=== PATIENT | male | born 1955 | race Caucasian/White ===

== ENCOUNTER → 2019-04-20 14:19 | Outpatient (CLI) | payer MEDICARE, SELFPAY ==
--- NOTE | 2019-04-20 | DI.CT.S_ITS ---
PROCEDURE: CT SINUS SCREEN WO CON INDICATIONS: Other chronic sinusitis TECHNIQUE: Noncontrast 3.0 mm axial images acquired from the frontal sinuses to the mid-sella, with coronal and sagittal reformats. For radiation dose reduction, the following was used: automated exposure control, adjustment of mA and/or kV according to patient size. COMPARISON: None. FINDINGS: Image quality: Excellent. Maxillary Sinuses: No bony remodeling or destruction. Sinuses are clear. Ethmoid Air Cells: No bony remodeling or destruction. There is mild mucosal thickening seen within the ethmoid air cells. Sphenoid Sinuses: No bony remodeling or destruction. Moderate mucosal thickening is seen within the right sphenoid sinus. Frontal Sinuses: No bony remodeling or destruction. Sinuses are clear. Ostiomeatal Complexes: Ostiomeatal complexes are patent. No Marcio cells. Miscellaneous: Visualized intra-orbital contents are normal. There is a small right-sided joel bullosa. No significant nasal septal deviation is seen. IMPRESSION: Focal right sphenoid sinus disease. Dictated by: Tim Daniels M.D. on 04/20/2019 at 14:50 Approved by: Tim Daniels M.D. on 04/20/2019 at 14:51
== END ==
PROVIDERS: PCP Internal Medicine; Referring Provider Otolaryngology; Visit Provider Otolaryngology
DX: J32.8 Other chronic sinusitis (principal)
CPT/HCPCS: 70486

== ENCOUNTER → 2019-05-31 15:29 | Outpatient (CLI) | payer MEDICARE, SELFPAY ==
[2019-05-31 16:10] LABS: Add Manual Diff / Slide Review NO; Basophils Absolute Auto 0 /uL (0-100); Basophils Percent Auto 0.5 % (0-2); Eosinophils Absolute Auto 0 /uL (0-450); Eosinophils Percent Auto 0.2 % (2-4); Hematocrit 42.7 % (41-53); Hemoglobin 14.3 g/dL (13.5-17.5); Lymphocytes Absolute Auto 1200 /uL (1100-4500); Mean Corpuscular HGB Conc 33.4 % (30-36); Mean Corpuscular Hemoglobin 31.2 PG (26-34); Mean Corpuscular Volume 93.4 fL (80-100); Monocytes Absolute Auto 500 /uL (0-900); Monocytes Percent Auto 6.2 % (3-14); Neutrophils Absolute Auto 5900 /uL (1500-7000); Neutrophils Percent Auto 77.1 % (50-75); Platelet Count 172 X10^3/uL (150-400); Red Blood Cell Count 4.57 X10^6/uL (4.5-5.9); Red Cell Distribution Width 13.5 % (11.6-14.8); White Blood Cell Count 7.6 X10^3/uL (4.5-11.0)
[2019-05-31 16:46] LABS: Blood Urea Nitrogen 27 mg/dL (9-20); Calcium 10.1 mg/dL (8.4-10.2); Carbon Dioxide 32 mmol/L (22-32); Chloride 105 mmol/L (98-107); Cholesterol 165 mg/dL (140-199); Estimated Glomerular Filt Rate > 60.0 mL/min (>60); Glucose 105 mg/dL (80-110); HDL Cholesterol 48 mg/dL (40-60); HEMOLYSIS < 15 (0-50); LDL Cholesterol Calculated 97 mg/dL (<100); Magnesium 2.4 mg/dL (1.6-2.3); Potassium 4.5 mmol/L (3.4-5.1); Sodium 142 mmol/L (137-145); Triglycerides 102 mg/dL (35-150)
[2019-05-31 17:16] LABS: TSH w/ Reflex to FT4 1.94 uIU/mL (0.47-4.68)
== END ==
PROVIDERS: PCP Internal Medicine; Referring Provider Internal Medicine; Visit Provider Internal Medicine Cardiovascular Disease
DX: I48.19 Other persistent atrial fibrillation (principal); I10 Essential (primary) hypertension; R53.83 Other fatigue
CPT/HCPCS: 36415; 80048; 80061; 83735; 84443; 85025

== ENCOUNTER → 2019-05-31 15:33 | Outpatient (CLI) | payer MEDICARE, SELFPAY ==
--- NOTE | 2019-05-31 | DI.RAD.S_ITS ---
PROCEDURE: XR LUMBAR SPINE 6V W BENDING INDICATIONS: LUMBAR SPONDYLOSIS TECHNIQUE: 6 views of the number spine were acquired, including flexion and extension views and bilateral oblique views. COMPARISON: None. FINDINGS: Bones: 5 nonrib-bearing, lumbar type vertebral bodies are seen. No displaced fractures are seen. No suspicious lytic or blastic lesions are seen. Mild to moderate dextroconvex cervical lumbar scoliotic curvature is seen. Moderate to severe disc space narrowing is seen at L3-L4, L4-L5, and L5-S1. Prominent bridging anterior osteophytes are seen throughout the lumbar spine, which are most prominent at L3-L4. Prominent right and left bridging endplate osteophytes are seen at L3-L4. Vacuum disc phenomenon is seen at least at the L3-L4 level. Facet arthropathy is seen, which is most prominent inferiorly. The oblique views are limited. No saleem pars defects are detected on these images. There is partial visualization of left hip arthroplasty hardware. Soft tissues: Overlying bowel gas pattern is normal. No suspicious soft tissue calcifications. A postoperative clip can be seen within the right midabdomen. Flexion/extension: There is highly limited range of motion, with preserved normal alignment. IMPRESSION: Prominent degenerative changes are seen, which are worst at L3-L4 level. Limited range of motion, without abnormal subluxation. Dictated by: Tim Daniels M.D. on 05/31/2019 at 15:30 Approved by: Tim Daniels M.D. on 05/31/2019 at 15:33
== END ==
PROVIDERS: PCP Internal Medicine; Referring Provider Internal Medicine; Visit Provider Pain Medicine Pain Medicine
DX: M47.816 Spondylosis without myelopathy or radiculopathy, lumbar region (principal)
CPT/HCPCS: 72114

== ENCOUNTER → 2019-08-31 13:42 | Outpatient (CLI) | payer OTHER, SELFPAY ==
[2019-09-01 09:34] LABS: COVID19 Sendout NOT DETECTED (Not Detect)
== END ==
PROVIDERS: PCP Internal Medicine; Visit Provider Physician Assistant
DX: Z01.812 Encounter for preprocedural laboratory examination (principal)
CPT/HCPCS: 87635

== ENCOUNTER → 2019-09-03 08:42 | Outpatient (CLI) | payer MEDICARE, SELFPAY | PROVIDERS: PCP Internal Medicine; Referring Provider Internal Medicine Cardiovascular Disease; Visit Provider Internal Medicine Cardiovascular Disease | DX: Z01.818 Encounter for other preprocedural examination (principal); Z53.9 Procedure and treatment not carried out, unspecified reason ==

== ENCOUNTER → 2019-10-26 14:28 | Outpatient (CLI) | payer MEDICARE, SELFPAY ==
[2019-10-26 15:02] LABS: Bacteria Urine None Seen; RBC Urine None Seen (0-5/HPF); WBC Urine None Seen (0-5/HPF)
[2019-10-26 16:12] LABS: Add Manual Diff / Slide Review NO; Basophils Absolute Auto 0 /uL (0-100); Basophils Percent Auto 0.5 % (0-2); Eosinophils Absolute Auto 100 /uL (0-450); Eosinophils Percent Auto 2.1 % (2-4); Hematocrit 40.6 % (41-53); Lymphocytes Absolute Auto 1500 /uL (1100-4500); Lymphocytes Percent Auto 25.2 % (25-40); Mean Corpuscular HGB Conc 34.5 % (30-36); Mean Corpuscular Hemoglobin 31.8 PG (26-34); Mean Corpuscular Volume 92.1 fL (80-100); Monocytes Absolute Auto 400 /uL (0-900); Monocytes Percent Auto 6.6 % (3-14); Neutrophils Absolute Auto 3800 /uL (1500-7000); Neutrophils Percent Auto 65.6 % (50-75); Platelet Count 142 X10^3/uL (150-400); Red Blood Cell Count 4.41 X10^6/uL (4.5-5.9); Red Cell Distribution Width 13.3 % (11.6-14.8); White Blood Cell Count 5.8 X10^3/uL (4.5-11.0)
[2019-10-26 16:36] LABS: Alanine Aminotransferase 19 IU/L (<50); Albumin 4.6 g/dL (3.5-5.0); Albumin Globulin Ratio 1.7 (1.0-2.8); Alkaline Phosphatase 90 U/L (38-126); Aspartate Aminotransferase 31 IU/L (17-59); BUN Creatinine Ratio 14.9 (6-22); Bilirubin Total 1.1 mg/dL (0.2-1.3); Blood Urea Nitrogen 20 mg/dL (9-20); Calcium 9.7 mg/dL (8.4-10.2); Carbon Dioxide 29 mmol/L (22-32); Chloride 100 mmol/L (98-107); Cholesterol 160 mg/dL (140-199); Estimated Glomerular Filt Rate 53.7 mL/min (>60); Globulin 2.7 g/dL (1.7-4.1); Glucose 85 mg/dL (80-110); HDL Cholesterol 49 mg/dL (40-60); HEMOLYSIS < 15 (0-50); LDL Cholesterol Calculated 94 mg/dL (<100); Potassium 4.4 mmol/L (3.4-5.1); Sodium 137 mmol/L (137-145); Total Protein 7.3 g/dL (6.3-8.2); Triglycerides 87 mg/dL (35-150)
[2019-10-26 16:45] LABS: Appearance Urine UA CLEAR; Bilirubin Urine UA NEGATIVE (NEGATIVE); Color Urine UA YELLOW; Glucose Urine UA NEGATIVE (Negative); Ketones Urine UA NEGATIVE (NEGATIVE); Leukocyte Esterase Urine UA NEGATIVE (NEGATIVE); Nitrite Urine UA NEGATIVE (Negative); Occult Blood Urine UA NEGATIVE (Negative); Protein Urine UA NEGATIVE (Negative); Specific Gravity Urine UA 1.015 (1.000-1.035); Urobilinogen Urine UA 0.2 E.U./dL (0.2)
[2019-10-26 17:06] LABS: Culture Indicated Urine Cult Not Indicated; Urine Comments Microscopic Normal
[2019-10-26 17:07] LABS: Prostate Specific Antigen 0.384 ng/mL (0.10-4.00)
[2019-10-26 17:08] LABS: TSH w/ Reflex to FT4 2.16 uIU/mL (0.47-4.68)
== END ==
PROVIDERS: PCP Internal Medicine; Referring Provider Internal Medicine; Visit Provider Internal Medicine
DX: R39.14 Feeling of incomplete bladder emptying (principal); N40.1 Benign prostatic hyperplasia with lower urinary tract symptoms; Z13.220 Encounter for screening for lipoid disorders; I48.91 Unspecified atrial fibrillation
CPT/HCPCS: 36415; 80053; 80061; 81001; 84153; 84443; 85025

== ENCOUNTER → 2019-12-07 15:36 | Outpatient (CLI) | payer MEDICARE, SELFPAY ==
--- NOTE | 2019-12-07 15:42 | DI.US.S_ITS ---
PROCEDURE: US PERIPH VENOUS LOW EXTREM RT INDICATIONS: PAIN RIGHT THIGH TECHNIQUE: Real-time imaging, as well as color and pulse Doppler interrogation, were performed of the lower extremity deep veins from the inguinal ligament to the popliteal fossa. COMPARISON: None. FINDINGS: The common femoral, femoral and popliteal veins are normally compressible, and free of intraluminal thrombus. Color and pulse Doppler demonstrate normal phasic intraluminal flow. There is normal augmentation response to distal compression maneuver. IMPRESSION: No deep venous thrombosis identified within the right lower extremity. Dictated by: Tj Tanner [facility] Interpreted: Simone Keen MD on 12/07/2019 at 16:22 Approved by: Simone Keen M.D. on 12/07/2019 at 16:35
--- NOTE | 2019-12-07 15:43 | DI.RAD.S_ITS ---
PROCEDURE: XR RIBS RT MIN 3V W CXR 1V INDICATIONS: RIB PAIN DYSPNEA TECHNIQUE: 2 views of the right ribs were acquired, along with a single view chest. COMPARISON: None. FINDINGS: Surgical changes and devices: Dual lead cardiac pacer. Cholecystectomy clips. Bones and chest wall: No fractures or dislocations. No suspicious bony lesions. Overlying soft tissues appear unremarkable. Lungs and pleura: No pleural effusions or pneumothorax. Lungs appear clear. Mediastinum: Mediastinal contours appear normal. Heart size is normal. IMPRESSION: No displaced rib fracture. Macro chest Dictated by: Jodie Peterson MD, PhD on 12/07/2019 at 16:38 Approved by: Jodie Peterson MD, PhD on 12/07/2019 at 16:39
== END ==
PROVIDERS: PCP Internal Medicine; Referring Provider Internal Medicine; Visit Provider Internal Medicine
DX: M79.651 Pain in right thigh (principal); R07.81 Pleurodynia; R06.00 Dyspnea, unspecified; Z95.0 Presence of cardiac pacemaker
CPT/HCPCS: 71101; 93971

== ENCOUNTER → 2019-12-27 12:32 | Outpatient (CLI) | payer MEDICARE, SELFPAY ==
[2019-12-27 13:13] LABS: Bacteria Urine None Seen; RBC Urine None Seen (0-5/HPF)
[2019-12-27 13:21] LABS: Add Manual Diff / Slide Review NO; Basophils Absolute Auto 100 /uL (0-100); Basophils Percent Auto 1.6 % (0-2); Eosinophils Absolute Auto 200 /uL (0-450); Eosinophils Percent Auto 3.5 % (2-4); Hematocrit 38.9 % (41-53); Hemoglobin 13.1 g/dL (13.5-17.5); Lymphocytes Absolute Auto 1500 /uL (1100-4500); Lymphocytes Percent Auto 25.2 % (25-40); Mean Corpuscular HGB Conc 33.7 % (30-36); Mean Corpuscular Hemoglobin 31.1 PG (26-34); Mean Corpuscular Volume 92.1 fL (80-100); Monocytes Absolute Auto 500 /uL (0-900); Monocytes Percent Auto 8.1 % (3-14); Neutrophils Absolute Auto 3800 /uL (1500-7000); Neutrophils Percent Auto 61.6 % (50-75); Platelet Count 174 X10^3/uL (150-400); Red Blood Cell Count 4.22 X10^6/uL (4.5-5.9); Red Cell Distribution Width 13.2 % (11.6-14.8); White Blood Cell Count 6.1 X10^3/uL (4.5-11.0)
[2019-12-27 13:36] LABS: Appearance Urine UA CLEAR; Bilirubin Urine UA NEGATIVE (NEGATIVE); Color Urine UA YELLOW; Glucose Urine UA NEGATIVE (Negative); Ketones Urine UA NEGATIVE (NEGATIVE); Leukocyte Esterase Urine UA NEGATIVE (NEGATIVE); Nitrite Urine UA NEGATIVE (Negative); Occult Blood Urine UA NEGATIVE (Negative); Protein Urine UA NEGATIVE (Negative); Urobilinogen Urine UA 0.2 E.U./dL (0.2)
[2019-12-27 13:39] LABS: Alanine Aminotransferase 17 IU/L (<50); Albumin 4.4 g/dL (3.5-5.0); Albumin Globulin Ratio 1.6 (1.0-2.8); Alkaline Phosphatase 81 U/L (38-126); Amylase 83 U/L (30-110); Aspartate Aminotransferase 28 IU/L (17-59); BUN Creatinine Ratio 17.5 (6-22); Bilirubin Total 0.4 mg/dL (0.2-1.3); Blood Urea Nitrogen 24 mg/dL (9-20); C-Reactive Protein Quant 0.6 mg/dL (<1.0); Calcium 9.5 mg/dL (8.4-10.2); Carbon Dioxide 30 mmol/L (22-32); Chloride 104 mmol/L (98-107); Estimated Glomerular Filt Rate 52.3 mL/min (>60); Globulin 2.8 g/dL (1.7-4.1); Glucose 93 mg/dL (80-110); HEMOLYSIS < 15 (0-50); Lipase 105 U/L (23-300); Potassium 4.7 mmol/L (3.4-5.1); Sodium 140 mmol/L (137-145); Total Protein 7.2 g/dL (6.3-8.2)
[2019-12-27 13:45] LABS: Culture Indicated Urine Cult Not Indicated; Squamous Epithelial Cell Urine 0-1 /HPF (0-5/HPF); WBC Urine 0-1/HPF (0-5/HPF)
[2019-12-27 13:50] LABS: Erythrocyte Sedimentation Rate 9 MM/HR (0-15)
== END ==
PROVIDERS: PCP Internal Medicine; Referring Provider Internal Medicine; Visit Provider Internal Medicine
DX: R10.10 Upper abdominal pain, unspecified (principal)
CPT/HCPCS: 36415; 80053; 81001; 82150; 83690; 85025; 85651; 86140

== ENCOUNTER → 2020-01-26 15:36 | Outpatient (CLI) | payer MEDICARE, SELFPAY ==
[2020-01-26 16:24] LABS: COVID19 -Nasal RAPID Negative (Negative)
== END ==
PROVIDERS: PCP Internal Medicine; Visit Provider Physician Assistant
DX: Z11.59 Encounter for screening for other viral diseases (principal)
CPT/HCPCS: 87635

== ENCOUNTER → 2020-02-08 18:49 | Outpatient (ROUT) | payer MEDICARE, SELFPAY | PROVIDERS: PCP Internal Medicine; Visit Provider Internal Medicine | DX: R21 Rash and other nonspecific skin eruption (principal) | CPT/HCPCS: 87102 ==

== ENCOUNTER → 2020-02-21 17:13 | Outpatient (CLI) | payer MEDICARE, SELFPAY ==
[2020-02-21 17:25] LABS: Bacteria Urine None Seen
[2020-02-21 17:55] LABS: Hemoglobin 13.6 g/dL (13.5-17.5); Mean Corpuscular Volume 91.2 fL (80-100); Platelet Count 145 X10^3/uL (150-400); Red Blood Cell Count 4.38 X10^6/uL (4.5-5.9); Red Cell Distribution Width 13.8 % (11.6-14.8); White Blood Cell Count 5.5 X10^3/uL (4.5-11.0)
[2020-02-21 18:07] LABS: Appearance Urine UA CLEAR; Bilirubin Urine UA NEGATIVE (NEGATIVE); Color Urine UA YELLOW; Glucose Urine UA NEGATIVE (Negative); Ketones Urine UA NEGATIVE (NEGATIVE); Leukocyte Esterase Urine UA NEGATIVE (NEGATIVE); Nitrite Urine UA NEGATIVE (Negative); Occult Blood Urine UA NEGATIVE (Negative); Protein Urine UA NEGATIVE (Negative); Urobilinogen Urine UA 0.2 E.U./dL (0.2)
[2020-02-21 18:36] LABS: Culture Indicated Urine Cult Not Indicated; Mucus Urine 1+ (Negative); RBC Urine 0-1/HPF (0-5/HPF); Squamous Epithelial Cell Urine 0-1 /HPF (0-5/HPF); WBC Urine 0-1/HPF (0-5/HPF)
[2020-02-21 18:39] LABS: Alanine Aminotransferase 20 IU/L (<50); Albumin 4.1 g/dL (3.5-5.0); Albumin Globulin Ratio 1.5 (1.0-2.8); Alkaline Phosphatase 86 U/L (38-126); Amylase 75 U/L (30-110); Aspartate Aminotransferase 31 IU/L (17-59); BUN Creatinine Ratio 13.1 (6-22); Bilirubin Total 0.9 mg/dL (0.2-1.3); Blood Urea Nitrogen 18 mg/dL (9-20); Calcium 9.6 mg/dL (8.4-10.2); Carbon Dioxide 33 mmol/L (22-32); Chloride 101 mmol/L (98-107); Estimated Glomerular Filt Rate 52.3 mL/min (>60); Globulin 2.8 g/dL (1.7-4.1); Glucose 110 mg/dL (80-110); HEMOLYSIS < 15 (0-50); Lipase 91 U/L (23-300); Sodium 136 mmol/L (137-145); Total Protein 6.9 g/dL (6.3-8.2)
[2020-02-21 18:43] LABS: Neutrophils Absolute Manual 3575 /uL (3000-5900); Total Cells Counted 100
[2020-02-21 18:44] LABS: RBC Morphology Normal Morphology
== END ==
PROVIDERS: PCP Internal Medicine; Referring Provider Internal Medicine; Visit Provider Internal Medicine
DX: R10.11 Right upper quadrant pain (principal)
CPT/HCPCS: 36415; 80053; 81001; 82150; 83690; 85025

== ENCOUNTER → 2020-02-22 08:21 | Outpatient (CLI) | payer MEDICARE, SELFPAY ==
--- NOTE | 2020-02-22 08:42 | DI.CT.S_ITS ---
This report includes an Addendum and supersedes previous reports for this exam. PROCEDURE: CT ANGIO ABDOMEN COMPARISON: None. INDICATIONS: Upper abdominal pain. FINDINGS: Image quality: Excellent. Lung bases: Lung bases are clear. Heart size is normal. Vasculature: The visualized thoracic aorta has a normal caliber. The visualized pulmonary arteries are well opacified without thrombus. The coronary arteries have atherosclerotic calcifications. The celiac trunk, SMA, NICOLAS, and both renal arteries are patent with no significant atherosclerotic disease. The iliac arteries have a normal caliber. There is a focal dissection of the right proximal external iliac artery without associated thrombus or limitation of flow. There is a focal dissection of the left proximal internal iliac artery without associated thrombus or limitation of flow. A focal plaque in the left external iliac artery is seen approximately 2 centimeters distal to the bifurcation. The right external iliac artery and the left external iliac artery both demonstrate significant wall thickening measuring up to 5 millimeters consistent with vasculitis. Solid organs: Liver: The liver has no mass or intrahepatic biliary ductal dilatation. The portal vein and hepatic veins are patent. Biliary: Status post cholecystectomy. Pancreas: The pancreas has no mass or ductal dilatation. There is no surrounding inflammation. There is diffuse fatty atrophy of the pancreas. Spleen: Normal size. There are no masses. Adrenals: No hypertrophy or nodules. Kidneys: No obstructive calculus or hydronephrosis. No solid mass. No cystic mass. Peritoneum and bowel: There is a small hiatal hernia. The distal esophagus and stomach are otherwise normal. The small bowel has a normal caliber and appearance. The terminal ileum is normal. The large bowel has a normal caliber and appearance. The appendix is not visualized, there are no secondary CT findings of acute appendicitis.. No free fluid or air. Nodes and vessels: No retroperitoneal or mesenteric adenopathy by size criteria. Aorta and inferior vena cava are normal in size. Miscellaneous: No abdominal wall mass or hernia. PELVIS: Genitourinary: The bladder is not visualized on these images. With Bones: No suspicious bony lesions. No vertebral body compression fractures. IMPRESSION: 1. The mesenteric and renal arteries and their branches are patent without significant atherosclerotic disease or stenosis/aneurysm. 2. Wall thickening of the external iliac arteries consistent with arteritis, possibly Giant Cell arteritis. 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 3. Coronary artery disease. Findings were discussed with Dr. Bello's office. Dictated by: Yash Seay M.D. on 02/22/2020 at 9:13 Approved by: Yash Seay M.D. on 02/22/2020 at 9:46 ADDENDUM: The esophagus demonstrates diffuse circumferential thickening suspicious for esophagitis. Recommend endoscopy. Findings were discussed with Dr. Bello's office. Dictated by: Yash Seay M.D. on 02/22/2020 at 10:40 Approved by: Yash Seay M.D. on 02/22/2020 at 10:48
== END ==
PROVIDERS: PCP Internal Medicine; Referring Provider Internal Medicine; Visit Provider Internal Medicine
DX: R10.10 Upper abdominal pain, unspecified (principal); I25.10 Atherosclerotic heart disease of native coronary artery without angina pectoris
CPT/HCPCS: 74175; Q9967

== ENCOUNTER → 2020-03-21 11:33 | Outpatient (CLI) | payer OTHER, SELFPAY ==
[2020-03-21 11:59] LABS: COVID19 -Nasal RAPID Negative (Negative)
== END ==
PROVIDERS: PCP Internal Medicine; Visit Provider Specialist
DX: Z01.812 Encounter for preprocedural laboratory examination (principal); Z20.822 Contact with and (suspected) exposure to COVID-19
CPT/HCPCS: 87635; C9803

== ENCOUNTER 2020-03-24 12:04 | Day surgery (SDC) | payer OTHER, SELFPAY ==
[2020-03-24] VITALS (7 sets, daily range): BP systolic 98–124; BP diastolic 60–70; PULSE 76–115; RESP 13–20; TEMP 36.2–37.2; O2SAT 96–100; BMI 32.8
[2020-03-24] MEDS: LACTATED RINGERS 1,000 ML 100 ML IV (13:01)
[2020-03-24] MEDS: CEFAZOLIN 2 GM/100 ML FROZ.PIGGY IV (13:05)
--- NOTE | 2020-03-24 13:31 | SUR.OPER ---
Supine on padded OR bed, head on pillow, arms secured on padded arm boards at <90 degrees abduction, legs uncrossed, safety belt at thigh, tape over blanket over lower legs.
[2020-03-24] MEDS: BUPIVACAINE 0.5% (PF) VIAL 30 ML INJ (13:35)
--- NOTE | 2020-03-24 15:17 | PM.OP.1 ---
Operative Date/Time/Diagnoses Date of procedure: 03/24/20 Time of procedure: 15:17 Pre-op diagnosis: Left inguinal hernia reducible Post-op diagnosis: other (Sliding left inguinal hernia) Procedure & Clinicians Procedure: Repair with onlay of mesh Same procedure as scheduled: Yes Indications: Symptomatic left inguinal hernia Surgeon: Jason Koch Click Yes if Unassisted: Yes Anesthesia Type: General Operative Notes Findings: colon formed the medial wall of the hernia. Closure Type: primary Specimen(s): none sent Prosthetic devices, grafts, tissues, transplants, or devices: 3 x 6 in piece of mesh Estimated Blood Loss (mL): 10 Blood products transfused: none Procedure in detail: Patient id was placed supine on the operating room table and underwent general LMA anesthesia. He was prepped and draped in the usual fashion. Curvilinear incision is made through a scar in the lower part of his abdomen and carried down level the external oblique. The external oblique was opened parallel with its fibers through the external ring. The cord structures and hernia sac were elevated and surrounded with a [place]. I opened the cremaster proximally and readily identified the sac which I opened. It contained colon which I reduced to the point where I was left with part of the wall of the hernia sac being formed by the colon. I incised the hernia sac distal to this with cautery. Using a running 2 0 silk I closed the peritoneum and in dented the colon. The of 0 Ethibond was used to place the suture superior and lateral to the internal ring to tighten this and then sutures were placed from transversalis to the ileopubic tract in edge of the inguinal ligament. These were tied and then relaxing incision made in the posterior lamella the anterior rectus sheath to take the tension off the sutures. I then placed a 3 x 6 in piece of mesh on the floor. It was tacked at the pubic tubercle and I then split along the length of it in the middle of the mesh to cure Bernadine an opening to allow the cord structures to come through. I then tacked the mesh to the posterior lamella the anterior rectus sheath medial to the relaxing incision. I tacked it to the ileoinguinal ligament. It was also tacked superior and lateral the cord. The repair appeared to be quite adequate. I did cut a nerve intentionally that would have been laying on mesh and probably would have caused postoperative symptoms. The cut edge was dunked into muscle. The external oblique was closed a running 3-0 Vicryl. The subQ was closed with interrupted 4 0 Vicryl. The skin was closed running 4-0 Vicryl subcuticular stitch and Steri-Strips. Dressing was applied. Patient tolerated the procedure well. Complications: none Post-operative Condition: stable Disposition: PACU Plan for aftercare: Follow-up in the office
[2020-03-24] MEDS: OXYCODONE/ACETAMINOPHEN 5/325 TABLET 1 TAB PO (15:44)
[2020-03-24] MEDS: ONDANSETRON 4 MG/2 ML INJ IV (15:57)
== END 2020-03-24 16:30 | disposition home or self-care (01) ==
PROVIDERS: PCP Internal Medicine; Referring Provider Specialist; Visit Provider Specialist
PROC: (CPT 49505; principal; 2020-03-24 12:45)
DX: K40.90 Unilateral inguinal hernia, without obstruction or gangrene, not specified as recurrent (principal); I12.9 Hypertensive chronic kidney disease with stage 1 through stage 4 chronic kidney disease, or unspecified chronic kidney disease; I48.91 Unspecified atrial fibrillation; N18.31 Chronic kidney disease, stage 3a; Z95.0 Presence of cardiac pacemaker; G47.30 Sleep apnea, unspecified
CPT/HCPCS: 49505; C1781; J0690; J2405; J2704; J3010

== ENCOUNTER → 2020-04-18 13:39 | Outpatient (CLI) | payer MEDICARE, SELFPAY ==
[2020-04-18] MEDS: COVID-19 VACC #1, MRNA(MOD) 100 MCG/0.5 ML VIAL IM (13:48)
== END ==
PROVIDERS: PCP Internal Medicine; Visit Provider Internal Medicine
DX: Z23 Encounter for immunization (principal)
CPT/HCPCS: 0011A; 91301

== ENCOUNTER → 2020-05-15 11:59 | Outpatient (CLI) | payer MEDICARE, SELFPAY ==
[2020-05-15] MEDS: COVID-19 VACC #2, MRNA(MOD) 100 MCG/0.5 ML VIAL IM (12:05)
== END ==
PROVIDERS: PCP Internal Medicine; Visit Provider Internal Medicine
DX: Z23 Encounter for immunization (principal)
CPT/HCPCS: 0012A; 91301

== ENCOUNTER → 2020-05-15 17:24 | Outpatient (CLI) | payer MEDICARE, SELFPAY ==
[2020-05-15 18:01] LABS: Add Manual Diff / Slide Review NO; Basophils Absolute Auto 100 /uL (0-100); Basophils Percent Auto 1.3 % (0-2); Eosinophils Absolute Auto 200 /uL (0-450); Eosinophils Percent Auto 2.9 % (2-4); Hemoglobin 13.1 g/dL (13.5-17.5); Lymphocytes Absolute Auto 1400 /uL (1100-4500); Lymphocytes Percent Auto 24.9 % (25-40); Mean Corpuscular HGB Conc 33.5 % (30-36); Mean Corpuscular Hemoglobin 30.8 PG (26-34); Mean Corpuscular Volume 91.8 fL (80-100); Monocytes Absolute Auto 500 /uL (0-900); Monocytes Percent Auto 8.5 % (3-14); Neutrophils Absolute Auto 3400 /uL (1500-7000); Neutrophils Percent Auto 62.4 % (50-75); Platelet Count 151 X10^3/uL (150-400); Red Blood Cell Count 4.25 X10^6/uL (4.5-5.9); Red Cell Distribution Width 14.1 % (11.6-14.8); White Blood Cell Count 5.4 X10^3/uL (4.5-11.0)
[2020-05-15 18:20] LABS: BUN Creatinine Ratio 16.4 (6-22); Blood Urea Nitrogen 20 mg/dL (9-20); Calcium 9.2 mg/dL (8.4-10.2); Carbon Dioxide 32 mmol/L (22-32); Chloride 103 mmol/L (98-107); Estimated Glomerular Filt Rate 59.6 mL/min (>60); Glucose 115 mg/dL (80-110); HEMOLYSIS < 15 (0-50); Potassium 4.5 mmol/L (3.4-5.1); Sodium 139 mmol/L (137-145)
[2020-05-15 18:22] LABS: Protein (Total) Urine Random 7 mg/dL (0-12); Protein Creatinine Ratio Urine 0.04 GRAM/24H
[2020-05-15 18:24] LABS: C-Reactive Protein Quant < 0.5 mg/dL (<1.0)
[2020-05-15 19:05] LABS: Erythrocyte Sedimentation Rate 5 MM/HR (0-15)
== END ==
PROVIDERS: PCP Internal Medicine; Referring Provider Student in an Organized Health Care Education/Training Program; Visit Provider Internal Medicine
DX: N05.9 Unspecified nephritic syndrome with unspecified morphologic changes (principal); D70.9 Neutropenia, unspecified; D63.1 Anemia in chronic kidney disease; R80.9 Proteinuria, unspecified
CPT/HCPCS: 36415; 80048; 82570; 84156; 85025; 85651; 86140

== ENCOUNTER → 2020-10-22 16:33 | Outpatient (CLI) | payer MEDICARE, SELFPAY ==
[2020-10-22 19:21] LABS: BUN Creatinine Ratio 26.4 (6-22); Blood Urea Nitrogen 33 mg/dL (9-20)
== END ==
PROVIDERS: PCP Internal Medicine; Referring Provider Physician Assistant; Visit Provider Physician Assistant
DX: I77.72 Dissection of iliac artery (principal)
CPT/HCPCS: 36415; 82565; 84520

== ENCOUNTER → 2020-10-23 13:22 | Outpatient (CLI) | payer MEDICARE, SELFPAY ==
--- NOTE | 2020-10-23 | DI.CT.S_ITS ---
PROCEDURE: CT ANGIO ABDOMEN PELVIS INDICATIONS: Dissection of iliac artery TECHNIQUE: After the administration of intravenous contrast, 2.5 mm thick sections acquired from the diaphragm to the symphysis. 10 mm maximum-intensity projection (MIP) reformats were then acquired. For radiation dose reduction, the following was used: automated exposure control. COMPARISON: [facility], CT, CT ANGIO ABDOMEN, 02/22/2020, 8:37. FINDINGS: Image quality: Excellent. Aorta: Normal caliber without stenosis or dissection. Mesenteric arteries: Celiac trunk, superior and inferior mesenteric arteries appear patent. Right pelvic arteries: Again noted is a focal non flow limiting dissection of the proximal right external iliac artery without associated aneurysm. Of note, previous diffuse thickening of the external iliac artery wall has resolved. Left pelvic arteries: Again noted is a focal non flow limiting proximal left internal iliac artery dissection without associated aneurysm. Of note, diffuse thickening of the wall of the external iliac artery, which was previously present, has resolved. Otherwise unremarkable. Extravascular soft tissues: Lung bases are clear. Heart size is normal. Severe circumferential thickening of the distal thoracic esophagus. Liver is normal in size and enhancement. Gallbladder is unremarkable. Biliary system is non dilated. Pancreas enhances normally. Spleen is normal in size and enhancement. Calcified splenic granulomata consistent with chronic granulomatous disease. No adrenal nodules. Kidneys are normal in size and enhancement, without hydronephrosis. Non opacified bowel loops are normal in wall thickness and caliber. No free fluid or air. No retroperitoneal or mesenteric adenopathy. No ventral hernias. No suspicious bony lesions. No vertebral body compression fractures. There is extensive lumbar degenerative change. There is posterior laminectomy at L2-L3 and L4-L5. At L3-L4, there is severe canal stenosis. IMPRESSION: 1. 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 No new dissections or progression of dissections. 2. Resolution of diffuse wall thickening of the external iliac arteries bilaterally, suggesting resolution of arteritis. 3. Severe circumferential thickening of the distal thoracic esophagus. 4. Severe canal stenosis at L3-L4. Comment: If this patient has not had recent endoscopic evaluation of the esophagus, would consider upper endoscopy. Dictated by: Britton Gomez M.D. on 10/23/2020 at 15:27 Approved by: Britton Gomez M.D. on 10/23/2020 at 15:43
== END ==
PROVIDERS: PCP Internal Medicine; Referring Provider Surgery Vascular Surgery; Visit Provider Surgery Vascular Surgery
DX: I77.72 Dissection of iliac artery (principal); M48.061 Spinal stenosis, lumbar region without neurogenic claudication
CPT/HCPCS: 74174; Q9967

== ENCOUNTER → 2021-01-09 17:04 | Outpatient (CLI) | payer MEDICARE, SELFPAY ==
[2021-01-09 18:06] LABS: Hematocrit 43.3 % (41-53); Hemoglobin 14.7 g/dL (13.5-17.5)
[2021-01-09 18:08] LABS: Appearance Urine UA CLEAR; Bilirubin Urine UA NEGATIVE (NEGATIVE); Color Urine UA YELLOW; Glucose Urine UA NEGATIVE (Negative); Ketones Urine UA NEGATIVE (NEGATIVE); Leukocyte Esterase Urine UA NEGATIVE (NEGATIVE); Nitrite Urine UA NEGATIVE (Negative); Occult Blood Urine UA NEGATIVE (Negative); Protein Urine UA NEGATIVE (Negative); Specific Gravity Urine UA 1.015 (1.000-1.035); Urobilinogen Urine UA 0.2 E.U./dL (0.2)
[2021-01-09 18:17] LABS: BUN Creatinine Ratio 18.2 (6-22); Blood Urea Nitrogen 20 mg/dL (9-20); Calcium 9.2 mg/dL (8.4-10.2); Carbon Dioxide 30 mmol/L (22-32); Chloride 102 mmol/L (98-107); Estimated Glomerular Filt Rate > 60.0 mL/min (>60); Glucose 109 mg/dL (80-110); HEMOLYSIS < 15 (0-50); Potassium 3.9 mmol/L (3.4-5.1); Sodium 140 mmol/L (137-145)
[2021-01-09 18:19] LABS: Bacteria Urine None Seen; Culture Indicated Urine Cult Not Indicated; Mucus Urine 1+ (Negative); RBC Urine None Seen (0-5/HPF); Squamous Epithelial Cell Urine 0-1 /HPF (0-5/HPF); WBC Urine 0-1/HPF (0-5/HPF)
[2021-01-09 19:00] LABS: Creatinine Urine Random 76.9 mg/dL; Protein (Total) Urine Random 9 mg/dL (0-12); Protein Creatinine Ratio Urine 0.11 GRAM/24H
[2021-01-11 13:42] LABS: Parathyroid Hormone Int 93 pg/mL (15-65)
== END ==
PROVIDERS: PCP Internal Medicine; Referring Provider Student in an Organized Health Care Education/Training Program; Visit Provider Student in an Organized Health Care Education/Training Program
DX: N05.9 Unspecified nephritic syndrome with unspecified morphologic changes (principal); D64.9 Anemia, unspecified; N25.81 Secondary hyperparathyroidism of renal origin; N30.00 Acute cystitis without hematuria; R80.9 Proteinuria, unspecified
CPT/HCPCS: 36415; 80048; 81001; 82570; 83970; 84156; 85014; 85018

== ENCOUNTER → 2021-01-09 17:07 | Outpatient (CLI) | payer MEDICARE, SELFPAY ==
--- NOTE | 2021-01-09 17:10 | DI.RAD.S_ITS ---
PROCEDURE: XR KNEE LT 4V INDICATIONS: PAIN TECHNIQUE: 4 views of the knee were acquired. COMPARISON: [facility] [place], CR, XR KNEE ARTHRITIC SERIES RT, 05/28/2019, 15:47. FINDINGS: Bones: No fractures or dislocations. Left knee joint total arthroplasty. There is minimal lucency adjacent to the medial tibial plateau which appears unchanged compared to 05/28/2019. No new areas of periprosthetic lucency. No suspicious bony lesions. Soft tissues: Small joint effusion. No suspicious soft tissue calcifications. Mild heterotopic calcification adjacent to the patella. IMPRESSION: Overall left total knee arthroplasty appears stable. Small joint effusion. Subtle lucency adjacent to the medial tibial plateau is unchanged since May 2019. Clinical significance is uncertain. Dictated by: Moe Brothers M.D. on 01/09/2021 at 18:38 Approved by: Moe Brothers M.D. on 01/09/2021 at 18:40
== END ==
PROVIDERS: PCP Internal Medicine; Referring Provider Internal Medicine; Visit Provider Internal Medicine
DX: M25.562 Pain in left knee (principal); M25.462 Effusion, left knee; G89.29 Other chronic pain; Z96.652 Presence of left artificial knee joint
CPT/HCPCS: 73564

== ENCOUNTER → 2021-02-16 13:58 | Outpatient (CLI) | payer MEDICARE, SELFPAY ==
[2021-02-16 16:50] LABS: COVID19 -Nasal RAPID Negative (Negative)
== END ==
PROVIDERS: PCP Internal Medicine; Referring Provider Nurse Practitioner Family; Visit Provider Nurse Practitioner Family
DX: Z20.822 Contact with and (suspected) exposure to COVID-19 (principal)
CPT/HCPCS: 87635; C9803

== ENCOUNTER 2021-02-18 11:27 | Day surgery (SDC) | payer MEDICARE, SELFPAY ==
--- NOTE | 2021-02-18 | PATH_ITS ---
[facility] Accession Number: [id number] . 01 Material submitted: . gastrointestinal site - GASTRIC POLYP . 02 Diagnosis: Gastric Polyp: Fundic gland polyp with mild chronic inflammation. Immunostaining for Helicobacter organisms pending; results will be reported as an addendum. Negative for intestinal metaplasia. Negative for dysplasia and malignancy. [facility] 02/23/2021 1744 Local . 02 Comment: As part of routine quality analyst, this case was also reviewed by Dr. Ortiz, who agrees with the interpretation. . 02 Electronically signed: . Katlin Nieto MD, Pathologist NPI- [id number] . 01 Gross description: . GASTRIC POLYP: Received in formalin is 1 fragment(s) of mejia, soft tissue measuring 0.3 x 0.3 x 0.2 cm submitted entirely in 1 cassette(s) /QBJ 02/19/2021 0851 Local . 02 Pathologist provided ICD-10: R13.10, K31.7 . 02 CPT . 460632 Performed at: 01 [facility] [address] [place] [address], [place], [place] [id number] MD Thiago Fish MD Phone: [phone] Performed at: 02 [facility] [address] [place], [place] [id number] MD Jacque Rush MD Phone: [phone]
--- NOTE | 2021-02-18 11:31 | PM.PREOP ---
Pre-operative Note COVID-19 COVID-19 status: Negative Interval Note History & Physical reviewed/Exam performed by Physician: Yes Changes to H&P: No ASA Class (for procedural sedation): III
--- NOTE | 2021-02-18 11:32 | PM.OP.EGD ---
Operative Date/Time/Diagnoses Date of procedure: 02/18/21 Pre-op diagnosis: See indication and findings Procedure & Clinicians Study performed: EGD Indications: Dysphagia and CT scan showing a severely thickened distal esophageal wall. Surgeon: Cody Sheffield Procedure Notes Procedure in detail: After informed consent was obtained the patient was placed in left lateral decubitus position. The video upper scope was placed into the oropharynx and with the patient's help swelled into the esophagus. The esophagus stomach and duodenum were carefully examined. On withdrawal retroflexed view the GE junction was performed. The scope was removed. The patient tolerated procedure well. Blood loss none Complications none Sedation mac Findings 1. Normal esophagus with normal squamocolumnar junction at 43 cm. 2. Upon entering the stomach there was a large 20 cm rim through which most of the gastric body could be accessed. This was affectively a large diverticulum. This contained most of the body of the stomach. The pylorus and duodenal bulb and sweep however could be accessed back inside the area of the diverticulum. No erosions or ulcers were seen 3. Normal duodenal bulb and sweep once pylorus past. This is a very unusual configuration. In reviewing the CT scan again it is not entirely clear to me what the anatomy is and where this ?diverticula? he is sitting. I suggest upper GI to provide a roadmap.
[2021-02-18 11:49] VITALS: BP 126/73; PULSE 92; RESP 16; TEMP 36.1; O2SAT 100; BMI 36.7
[2021-02-18 12:25] VITALS: BP 136/76; PULSE 117; RESP 16; TEMP 36.2
[2021-02-18 12:29] VITALS: BP 112/70; PULSE 105; RESP 17; O2SAT 95
[2021-02-18 12:35] VITALS: BP 114/79; PULSE 111; RESP 16; TEMP 36.6; O2SAT 95
[2021-02-18 12:40] VITALS: BP 122/66; PULSE 101; RESP 14; O2SAT 99
[2021-02-18 12:59] VITALS: BP 123/78; PULSE 92; RESP 18; TEMP 36.4; O2SAT 98
--- NOTE | 2021-02-18 14:54 | SUR.PHASEII ---
Late entry: Dr. Sheffield to bedside, spoke at length with pt. [facility]'s office to call pt to schedule additional test. Pt also instructed to take po metoprolol, his home medication, as soon as he gets home. Pt left when ready, no complaints and left in stable condition.
== END 2021-02-18 13:15 | disposition home or self-care (01) ==
PROVIDERS: PCP Internal Medicine; Referring Provider Internal Medicine Gastroenterology; Visit Provider Internal Medicine Gastroenterology
PROC: 0DJ08ZZ Inspection of Upper Intestinal Tract, Via Natural or Artificial Opening Endoscopic (ICD-10-PCS; CPT 43235; principal; 2021-02-18 12:30)
DX: R13.10 Dysphagia, unspecified (principal); K31.4 Gastric diverticulum; I48.91 Unspecified atrial fibrillation; Z95.0 Presence of cardiac pacemaker; I10 Essential (primary) hypertension; K21.9 Gastro-esophageal reflux disease without esophagitis; E78.00 Pure hypercholesterolemia, unspecified
CPT/HCPCS: 43235; J2704

== ENCOUNTER 2021-07-09 13:05 | Emergency (ER) | payer OTHER, SELFPAY ==
[2021-07-09 13:13] VITALS: BP 146/80; PULSE 93; RESP 15; TEMP 35.8; O2SAT 98; BMI 40.4
--- NOTE | 2021-07-09 13:18 | DI.RAD.S_ITS ---
PROCEDURE: XR KNEE RT 3V INDICATIONS: fall TECHNIQUE: 3 views of the knee were acquired. COMPARISON: [facility], CR, XR KNEE LT 4V, 01/09/2021, 17:07. FINDINGS: Bones: Moderate to severe right knee joint osteoarthritis more prominent in medial femoral tibial compartment. Slight lateral subluxation of patella is seen. No acute fractures or dislocations. No suspicious bony lesions. Soft tissues: No joint effusion. No suspicious soft tissue calcifications. IMPRESSION: No acute right knee fracture or dislocation. No significant joint effusion. Moderate to severe tricompartmental osteoarthritis as above. Dictated by: Simone Keen M.D. on 07/09/2021 at 14:07 Approved by: Simone Keen M.D. on 07/09/2021 at 14:08
--- NOTE | 2021-07-09 13:18 | DI.RAD.S_ITS ---
PROCEDURE: XR FOREARM LT 2V INDICATIONS: fall TECHNIQUE: 2 views of the forearm were acquired. COMPARISON: None. FINDINGS: Bones: No fractures or dislocations. Elbow joint osteoarthritic changes are seen. No suspicious bony lesions. Soft tissues: No suspicious soft tissue calcifications or masses. IMPRESSION: No acute forearm fracture or dislocation. No joint effusion or gross soft tissue abnormality. Dictated by: Simone Keen M.D. on 07/09/2021 at 14:07 Approved by: Simone Keen M.D. on 07/09/2021 at 14:07
[2021-07-09 14:07] VITALS: PULSE 99; O2SAT 98
[2021-07-09 14:08] VITALS: BP 150/77; PULSE 94; O2SAT 97
--- NOTE | 2021-07-09 14:09 | ED_ITS ---
HPI - Fall <Jacque Suhail Elliott [facility] - Last Filed: 07/09/21 19:44> General Chief Complaint: Fall Stated Complaint: left arm injury fell Time Seen by Provider: 07/09/21 14:09 Source: patient Mode of arrival: Ambulatory History of Present Illness HPI Narrative: This is a 66-year-old male with a history of AFib on Eliquis, GERD, chronic pain on hydrocodone, hypertension and osteoarthritis of his right knee who presents to the emergency department complaining of a fall which happened earlier today onto his left side. He states that he has right knee pain and left forearm pain because he landed on his left forearm but states the twisting motion that he went down in seem to exacerbate his right knee. He denies any range of motion deficit or mobility deficit, states that he has soreness and tenderness with a couple small skin tears on his left lateral forearm. He states that he tripped on a rug, denies any dizziness or chest pain, denies any shortness of breath, weakness, lightheadedness or any other symptom. Patient states his last tetanus was in 2015. He does not have any bleeding from his wound. He has had a knee replacement of his left knee, he denies any instability feeling on the right knee, complains of pain on the medial aspect over the MCL, no lateral pain. Related Data Home Medications Medication Instructions Recorded Confirmed fluticasone propionate 50 1 spray INTRANASAL BIDP PRN #0 03/12/06 02/18/21 mcg/actuation nasal spray,suspension (Flonase Allergy Relief) albuterol sulfate 90 mcg/actuation 2 puff INH PRN PRN #0 10/12/16 02/18/21 aerosol inhaler (Ventolin HFA) cetirizine 10 mg tablet 10 mg PO QPM #0 10/12/16 02/18/21 ferrous sulfate 325 mg (65 mg 65 mg PO QPM #0 10/12/16 02/18/21 iron) tablet (Feosol) finasteride 5 mg tablet 5 mg PO QDAY #0 10/12/16 02/18/21 furosemide 20 mg tablet 20 mg PO QDAY PRN #0 10/12/16 02/18/21 hydrocodone 10 mg-acetaminophen 1 tab PO Q6H #0 10/12/16 02/18/21 325 mg tablet ([place]) lidocaine 5 % topical patch 1 patch TOPICAL Q12H #0 10/12/16 02/18/21 (Lidoderm) losartan 25 mg tablet 25 mg PO QDAY #0 10/12/16 02/18/21 multivitamin (Multiple Vitamins) 1 tab PO QPM #0 10/12/16 02/18/21 omega 3-wmh-dwe-fish oil 1,000 mg 1,000 mg PO BID #0 10/12/16 02/18/21 (120 mg-180 mg) capsule (Fish Oil) pantoprazole 40 mg tablet,delayed 40 mg PO QDAY #0 10/12/16 02/18/21 release tamsulosin 0.4 mg capsule (Flomax) 0.4 mg PO BID #0 10/12/16 02/18/21 metoprolol succinate 50 mg 50 mg PO DAILY 03/19/20 02/18/21 tablet,extended release 24 hr nortriptyline 75 mg capsule 75 mg PO DAILY 03/19/20 02/18/21 apixaban 5 mg tablet (Eliquis) 5 mg PO BID 11/26/20 02/18/21 rosuvastatin 5 mg tablet 5 mg PO DAILY 11/26/20 02/18/21 Previous Rx's Medication Instructions Recorded diclofenac sodium 1 % topical gel 4 g TOPICAL QID PRN #100 g 07/09/21 (Voltaren Arthritis Pain) lidocaine 5 % topical patch 1 patch TOPICAL DAILY PRN #30 ea 07/09/21 (Lidoderm) Allergies Allergy/AdvReac Type Severity Reaction Status Date / Time tramadol Allergy Intermediate shakey Verified 07/09/21 13:14 NSAIDS (Non-Steroidal AdvReac Intermediate pt is not Verified 07/09/21 13:14 Anti-Inflamma supposed [NSAIDS (NON-STEROIDAL to take ANTI-INFLAMMA] them Review of Systems <Jacque Elliott [facility] - Last Filed: 07/09/21 19:44> Review of Systems Narrative: General: denies fever, chills, malaise, sweats, fatigue Head/Neck: denies headache, neck pain, dizziness Eyes: denies visual changes, eye pain Cardio: denies chest pain, palpitations, edema Respiratory: denies dyspnea, cough, orthopnea GI: denies abdominal pain, nausea, vomiting, or diarrhea : denies dysuria, hematuria, urinary retention, frequency or incontinence MSK: Endorses right knee pain , and left forearm pain, denies elbow pain, denies hip or ankle pain, denies any muscle weakness, endorses some numbness and tingling which comes and goes in his left fingertips. Skin: denies rash, itching, skin lesions or other Neuro: denies numbness, tingling in lower extremities Patient History <JERMAN Herrera - Last Filed: 07/09/21 19:44> Medical History Allergic rhinitis Atrial fibrillation BPH w/o urinary obs/LUTS Chronic kidney disease (CKD) stage G3a/A1, moderately decreased glomerular filtration rate (GFR) between 45-59 mL/min/1.73 square meter and albuminuria creatinine ratio less than 30 mg/g Chronic, continuous use of opioids DDD (degenerative disc disease), lumbar Essential hypertension Fatigue due to sleep pattern disturbance GERD (gastroesophageal reflux disease) Hyperlipidemia Iron deficiency anemia following bariatric surgery 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 (08/25/20) Obesity (BMI 30-39.9) Obstructive sleep apnea, adult Pacemaker Surgical History H/O gastric bypass H/O left inguinal hernia repair History of cholecystectomy Family History Family/Other Loud snoring Dementia Father Loud snoring Obesity Hypertension Heart disease Mother Loud snoring Obesity Hypertension Depression Anxiety Family/Other Hypertension Depression Social History household members: spouse Smoking Status: Never smoker alcohol intake: never Smoking Status: Never smoker alcohol intake frequency: holidays/special occasions only Substance Use Type: does not use Exam <JERMAN Herrera - Last Filed: 07/09/21 19:44> Narrative Exam Narrative: Independently reviewed vitals signs and nursing notes. General: cooperative, comfortable, in no acute distress, well developed and well groomed Head: atraumatic, symmetrical facial expressions Neck: supple, atraumatic, without lymphadenopathy. Eyes: pupils equal round and reactive, EOMI, conjunctiva normal Nose: nares patent, no rhinorrhea Mouth/Throat: uvula midline, moist mucus membranes Cardiovascular: regular rate and rhythm, no peripheral edema, warm extremities Respiratory: normal effort, able to speak in complete sentences, no audible wheezing, stridor, or rales. No retractions or tachypnea. GI: abdomen soft, nontender to palpation, nondistended, no masses, no exquisite tenderness with exam, without guarding or rebound. MSK: moves all extremities, ambulatory w/steady gait using a walker, neurovascularly intact, no weakness, right knee with no tenderness over patella, no tenderness over LCL, mild tenderness over MCL, Kevin's test with full stop anteriorly and posteriorly, + wave test, mild suprapatellar edema no tenderness over patellar tendon Skin: brisk capillary refill, no rash, no erythema, small superficial skin tears are small on lateral left double, covered with a Band-Aid Neuro: normal speech and cognition, A&O x3, normal tone Psych: mental status is grossly normal, congruent mood, normal affect, pleasant and cooperative Initial Vital Signs Initial Vital Signs: Vital Signs Temperature 96.4 F L 07/09/21 13:13 Pulse Rate 93 H 07/09/21 13:13 Respiratory Rate 15 07/09/21 13:13 Blood Pressure 146/80 H 07/09/21 13:13 Pulse Oximetry 98 07/09/21 13:13 <Constantine Monroe DO - Last Filed: 07/11/21 07:13> Initial Vital Signs Initial Vital Signs: Vital Signs Temperature 96.4 F L 07/09/21 13:13 Pulse Rate 93 H 07/09/21 13:13 Respiratory Rate 15 07/09/21 13:13 Blood Pressure 146/80 H 07/09/21 13:13 Pulse Oximetry 98 07/09/21 13:13 Course <STEVEN HerreraP - Last Filed: 07/09/21 19:44> Orders Ordered: ED Orders 07/09/21 13:18 XR forearm LT 2V Stat XR knee RT 3V Stat Vital Signs Vital signs: Vital Signs - 8 hr 07/09/21 13:13 07/09/21 14:07 07/09/21 14:08 Temperature 96.4 F L Pulse Rate 93 H 99 H 94 H Respiratory Rate 15 Blood Pressure 146/80 H 150/77 H Pulse Oximetry 98 98 97 07/09/21 14:30 Temperature Pulse Rate 92 H Respiratory Rate Blood Pressure 145/81 H Pulse Oximetry 98 <Constantine Monroe DO - Last Filed: 07/11/21 07:13> Orders Ordered: ED Orders 07/09/21 13:18 XR forearm LT 2V Stat XR knee RT 3V Stat Vital Signs Vital signs: Vital Signs - 8 hr 07/09/21 13:13 07/09/21 14:07 07/09/21 14:08 Temperature 96.4 F L Pulse Rate 93 H 99 H 94 H Respiratory Rate 15 Blood Pressure 146/80 H 150/77 H Pulse Oximetry 98 98 97 07/09/21 14:30 Temperature Pulse Rate 92 H Respiratory Rate Blood Pressure 145/81 H Pulse Oximetry 98 MDM - Fall <Jacque STEVEN ArayaP - Last Filed: 07/09/21 19:44> Imaging Data Extremity x-ray #1: Radiologist's Impression: PROCEDURE:? XR KNEE RT 3V ? INDICATIONS:? fall ? TECHNIQUE:? 3 views of the knee were acquired.? ? COMPARISON:? [facility], , XR KNEE LT 4V, 01/09/2021, 17:07. ? FINDINGS:? ? Bones:? Moderate to severe right knee joint osteoarthritis more prominent in medial femoral tibial compartment.? Slight lateral subluxation of patella is seen.? No acute fractures or dislocations.? No suspicious bony lesions.? ? Soft tissues:? No joint effusion.? No suspicious soft tissue calcifications.? ? ? IMPRESSION:? No acute right knee fracture or dislocation.? No significant joint effusion. ?Moderate to severe tricompartmental osteoarthritis as above. ? ? Dictated by: Simone Keen M.D. on 07/09/2021 at 14:07 ? ? Approved by: Simone Keen M.D. on 07/09/2021 at 14:08 ? Extremity x-ray #2: Radiologist's Impression: PROCEDURE:? XR FOREARM LT 2V ? INDICATIONS:? fall ? TECHNIQUE:? 2 views of the forearm were acquired.? ? COMPARISON:? None. ? FINDINGS:? ? Bones:? No fractures or dislocations.? Elbow joint osteoarthritic changes are seen.? No suspicious bony lesions.? ? Soft tissues:? No suspicious soft tissue calcifications or masses.? ? ? IMPRESSION:? No acute forearm fracture or dislocation.? No joint effusion or gross soft tissue abnormality.? ? ? Dictated by: Simone Keen M.D. on 07/09/2021 at 14:07 ? ? Approved by: Simone Keen M.D. on 07/09/2021 at 14:07 ? MDM Narrative Medical decision making narrative: This is a pleasant 66-year-old male with history of AFib on Eliquis, pacemaker, chronic pain on hydrocodone with history of right knee tricompartmental osteoarthritis who presents to the emergency department complaining of a ground level fall after tripping on a rug with Rt knee pain and left forearm pain from falling down on his left side. X-ray of his forearm does not show any fracture, dislocation joint effusion, or gross soft tissue abnormality. He has some osteoarthritic changes. Knee x-ray of his right knee shows without significant joint effusion, no right knee fracture or dislocation. Slight lateral subluxation patella. Patient took hydrocodone this morning, states his pain is fairly well controlled with that. I recommended diclofenac topical gel and li docaine patches in addition to his normal chronic pain ridging. Patient was given a referral to [facility] to follow up. Patient has had a total knee replacement of his left knee, and is in need of one on his right knee, he will follow-up at [facility] if his left forearm pain is ongoing, or worsening, and if he is seeking a total knee replacement on the right. Patient was fitted in a sling, he states that this is more comfortable, he is encouraged to have light gentle range of motion activity in both of these joints. I recommend following up with primary care for referral to physical therapy and/or advanced imaging has necessary. Patient states understanding, is ambulatory with his cane, will follow-up with [facility] and his primary care provider as directed. Patient is appropriate and amenable to discharge home. Vital signs are stable on repeat examination is unremarkable. Patient has been informed of results. Patient has been given strict return to ER precautions for any new or worsening symptoms. Patient understands to follow up closely with outpatient providers as instructed. Patient understands plan and agrees to discharge home. All questions and concerns answered at this time. Discharge Plan Departure Patient Disposition: Home Clinical Impression: Tricompartment osteoarthritis of right knee Fall Qualifiers: Encounter type: initial encounter Qualified Code(s): W19.XXXA - Unspecified fall, initial encounter Contusion of elbow, left Qualifiers: Encounter type: initial encounter Qualified Code(s): S50.02XA - Contusion of left elbow, initial encounter Instructions: Osteoarthritis, Elbow Sprain, Knee Replacement, DI for Elbow Pain Activity Restrictions/Additional Instructions: *You have been diagnosed with left elbow injury with a contusion. Please wear this sling and ice it for 20 minutes twice a day for the next and see if this starts getting better. Please take your arm out of the sling few times a day and practice gentle range motion to keep your shoulder and elbow from getting stiff. Please follow-up at [facility] for your tricom partmental osteoarthritis of your right knee. I have included information about any replacement in case this is helpful to peruse. You can use topical Voltaren gel for your pain, or lidocaine patches. Please take your hydrocodone as needed, for any worsening pain, difficulty ambulating, or worsening of her symptoms, please return to the emergency department for another evaluation. Please have your CT scans as ordered for your joints. Have those results sent where you want to follow-up. Thank you for trusting us with your care, I hope that you start feeling better soon. *What to do: *Please continue to take your regular medications as directed. [ x] New medication prescriptions sent to your pharmacy: [ [facility]] [ ] New medication written as a paper prescription [ ] No new medications given *Please follow up with your primary care provider in 2-3 days, call for an appointment. Let them know you were seen in the Emergency Department and that we asked that you be seen for follow-up. We will electronically transmit a record of today's note if your PCP is in our system *If you do not have a primary care provider please contact [phone] to establish care with one of the [facility] primary care providers. *Return to Emergency Department if you should have any new, worsening or concerning symptoms, such as [fever greater than 101F, chills, worsening pain, persistent vomiting or other bothersome symptoms] Prescriptions: New diclofenac sodium [Voltaren Arthritis Pain] 1 % gel 4 g topical QID PRN (Reason: pain) Qty: 100 0RF Rx Instructions: apply to single knee, ankle, foot; for foot includes sole/toes/top of foot lidocaine [Lidoderm] 5 % adhesive patch,medicated 1 patch topical DAILY PRN (Reason: pain) Qty: 30 0RF Rx Instructions: leave on most painful area for up to 12 hrs No Action fluticasone propionate [Flonase Allergy Relief] 9.9 ML spray,suspension 1 spray Intranasal BIDP PRN (Reason: Nasal Congestion) Qty: 0 0RF finasteride 5 MG tablet 5 mg PO QDAY Qty: 0 0RF pantoprazole 40 MG tablet,delayed release (DR/EC) 40 mg PO QDAY Qty: 0 0RF lidocaine [Lidoderm] 1 EACH adhesive patch,medicated 1 patch Topical Q12H Qty: 0 0RF Label Comments: 3 weeks losartan 25 MG tablet 25 mg PO QDAY Qty: 0 0RF hydrocodone-acetaminophen [[place]] 10 MG/325 MG tablet 1 tab PO Q6H Qty: 0 0RF Label Comments: pt usually takes 3 a day albuterol sulfate [Ventolin HFA] 90 MCG/PUFF HFA aerosol inhaler 2 puff INH PRN PRN (Reason: Shortness Of Breath) Qty: 0 0RF tamsulosin [Flomax] 0.4 MG capsule,extended release 24hr 0.4 mg PO BID Qty: 0 0RF multivitamin [Multiple Vitamins] 1 EACH tablet 1 tab PO QPM Qty: 0 0RF omega 8-fwh-fyy-fish oil [Fish Oil] 1,000 MG capsule 1,000 mg PO BID Qty: 0 0RF cetirizine 10 MG tablet 10 mg PO QPM Qty: 0 0RF ferrous sulfate [Feosol] 325 mg (65 mg iron) tablet 65 mg PO QPM Qty: 0 0RF furosemide 20 MG tablet 20 mg PO QDAY PRN (Reason: Water retention) Qty: 0 0RF metoprolol succinate 50 mg tablet extended release 24 hr 50 mg PO DAILY 0RF nortriptyline 75 mg capsule 75 mg PO DAILY 0RF Eliquis 5 mg tablet 5 mg PO BID 0RF rosuvastatin 5 mg tablet 5 mg PO DAILY 0RF Referrals: [facility] [Provider Group] - 5-7 days (Fall on right knee tricompartmental osteoarthritis, left forearm injury with numbness tingling in fingertips) Natasha Carroll MD [Primary Care Provider] - Stand Alone Forms: Work Release Note <Constantine Monroe DO - Last Filed: 07/11/21 07:13> Cosign ED Attending Cosignature Attestation: Dr Monroe Co-Sign Statement: I was available for consultation during this patient's emergency department visit. This chart is signed by myself for administrative purposes only. I did not have direct contact with this patient during this visit. They were seen independently by the APC.
[2021-07-09 14:30] VITALS: BP 145/81; PULSE 92; O2SAT 98
== END 2021-07-09 14:45 | disposition home or self-care (01) ==
PROVIDERS: Emergency Provider Nurse Practitioner Critical Care Medicine; PCP Internal Medicine
DX: S50.02XA Contusion of left elbow, initial encounter (principal); M17.11 Unilateral primary osteoarthritis, right knee; M25.561 Pain in right knee; W01.0XXA Fall on same level from slipping, tripping and stumbling without subsequent striking against object, initial encounter
CPT/HCPCS: 73090; 73562; 99283

== ENCOUNTER → 2021-08-12 13:06 | Outpatient (CLI) | payer OTHER, SELFPAY ==
--- NOTE | 2021-08-12 | DI.CT.S_ITS ---
PROCEDURE: CT PEL WO CON INDICATIONS: Pain in unspecified hip TECHNIQUE: Noncontrast 3 mm axial sections acquired through the bony pelvis, with coronal and sagittal reformatting. COMPARISON: None. FINDINGS: Image quality: Diagnostic. Beam hardening artifacts from left hip prosthesis is seen Bones: Patient is status post left total hip arthroplasty with significant beam hardening artifacts. Left hip alignment is anatomic. No evidence of hardware loosening or failure. There is no acute pelvic or hip fracture. Moderate to severe right hip joint osteoarthritic changes are seen with near complete loss of joint space, extensive subchondral sclerosis and marginal osteophyte formation. No evidence of avascular necrosis of femoral head. No suspicious intraosseous lesion. Degenerative disc disease in visualized lower lumbar spine is seen. Soft tissues: There is no significant right hip joint effusion. No gross muscle or soft tissue abnormalities. No abnormal soft tissue calcifications. There is no pelvic free fluid or free air. No abnormal bowel wall thickening. Suggestion of mild diffuse bladder wall thickening is noted, no discrete bladder wall mass. Enlarged prostate gland with mild mass effect on floor of urinary bladder is seen. IMPRESSION: 1. Moderate to severe right hip joint osteoarthritis. Prior left total hip arthroplasty. No acute fracture or dislocation. No gross hardware complication. No evidence of avascular necrosis of femoral head. Degenerative disc disease in lower lumbar spine. No suspicious intraosseous lesion. 2. No gross pelvic or hip soft tissue abnormality. No pelvic free fluid or free air. 3. Questionable diffuse bladder wall thickening which may be due to under distension. Chronic urinary outlet obstruction cannot be excluded. Clinical correlation is recommended. No discrete bladder wall mass. Dictated by: Simone Keen M.D. on 08/12/2021 at 16:49 Approved by: Simone Keen M.D. on 08/12/2021 at 16:54
== END ==
PROVIDERS: PCP Internal Medicine; Referring Provider Physician Assistant; Visit Provider Physician Assistant
DX: M25.559 Pain in unspecified hip (principal); M16.11 Unilateral primary osteoarthritis, right hip
CPT/HCPCS: 72192

== ENCOUNTER → 2021-08-17 15:33 | Outpatient (CLI) | payer OTHER, SELFPAY ==
--- NOTE | 2021-08-17 | DI.RAD.S_ITS ---
PROCEDURE: XR WRIST LT MIN 3V INDICATIONS: wrist pain after fall, scaphoid pain TECHNIQUE: Full views of the wrist were acquired. COMPARISON: [facility], CR, XR FOREARM LT 2V, 07/09/2021, 13:09. FINDINGS: Bones: No fractures or dislocations. No suspicious bony lesions. Mild degenerative joint disease is present. Subtle bony erosion involving the radial and ulnar styloids. Scaphoid view: Scaphoid appears intact. Soft tissues: No suspicious soft tissue calcifications. Soft tissue swelling over the radial styloid. IMPRESSION: 1. No acute osseous abnormalities. 2. Mild degenerative joint disease. 3. Subtle erosion involving the radial and ulnar styloids. Recommend clinical correlation for inflammatory arthritis. 4. Soft tissue swelling over the radial styloid. If there is clinical concern for tendon or ligament injuries, MRI may be obtained for further evaluation. Dictated by: Juan Manuel Sullivan M.D. on 08/17/2021 at 17:14 Approved by: Juan Manuel Sullivan M.D. on 08/17/2021 at 17:18
== END ==
PROVIDERS: PCP Internal Medicine; Referring Provider Internal Medicine; Visit Provider Internal Medicine
DX: M19.032 Primary osteoarthritis, left wrist (principal); M85.832 Other specified disorders of bone density and structure, left forearm; M79.89 Other specified soft tissue disorders; M25.532 Pain in left wrist
CPT/HCPCS: 73110

== ENCOUNTER → 2021-10-06 12:14 | Outpatient (CLI) | payer OTHER, SELFPAY ==
[2021-10-06 12:35] LABS: Add Manual Diff / Slide Review NO; Basophils Absolute Auto 100 /uL (0-100); Eosinophils Absolute Auto 100 /uL (0-450); Eosinophils Percent Auto 2.8 % (2-4); Hematocrit 41.2 % (41-53); Hemoglobin 13.9 g/dL (13.5-17.5); Lymphocytes Absolute Auto 1200 /uL (1100-4500); Lymphocytes Percent Auto 23.3 % (25-40); Mean Corpuscular HGB Conc 33.7 % (30-36); Mean Corpuscular Hemoglobin 31.2 PG (26-34); Mean Corpuscular Volume 92.7 fL (80-100); Monocytes Absolute Auto 500 /uL (0-900); Monocytes Percent Auto 9.6 % (3-14); Neutrophils Absolute Auto 3400 /uL (1500-7000); Neutrophils Percent Auto 63.3 % (50-75); Platelet Count 146 X10^3/uL (150-400); Red Blood Cell Count 4.45 X10^6/uL (4.5-5.9); White Blood Cell Count 5.3 X10^3/uL (4.5-11.0)
[2021-10-06 13:25] LABS: BUN Creatinine Ratio 27.5 (6-22); Blood Urea Nitrogen 33 mg/dL (9-20); Calcium 9.2 mg/dL (8.4-10.2); Carbon Dioxide 29 mmol/L (22-32); Chloride 101 mmol/L (98-107); Cholesterol 119 mg/dL (140-199); Estimated Glomerular Filt Rate > 60 mL/min (>60); Glucose 109 mg/dL (80-110); HDL Cholesterol 59 mg/dL (40-60); HEMOLYSIS < 15 (0-50); LDL Cholesterol Calculated 41 mg/dL (<100); Potassium 4.7 mmol/L (3.4-5.1); Sodium 137 mmol/L (137-145); Triglycerides 94 mg/dL (35-150)
== END ==
PROVIDERS: PCP Internal Medicine; Referring Provider Internal Medicine Cardiovascular Disease; Visit Provider Internal Medicine Cardiovascular Disease
DX: I48.19 Other persistent atrial fibrillation (principal); I10 Essential (primary) hypertension; Z79.01 Long term (current) use of anticoagulants
CPT/HCPCS: 36415; 80048; 80061; 85025

== ENCOUNTER → 2021-10-15 16:40 | Outpatient (CLI) | payer OTHER, SELFPAY ==
[2021-10-15 17:49] LABS: Hematocrit 41.4 % (41-53); Hemoglobin 14.4 g/dL (13.5-17.5)
[2021-10-15 18:00] LABS: BUN Creatinine Ratio 18.3 (6-22); Blood Urea Nitrogen 22 mg/dL (9-20); Calcium 9.5 mg/dL (8.4-10.2); Carbon Dioxide 29 mmol/L (22-32); Chloride 103 mmol/L (98-107); Estimated Glomerular Filt Rate > 60 mL/min (>60); Glucose 89 mg/dL (80-110); HEMOLYSIS < 15 (0-50); Potassium 4.5 mmol/L (3.4-5.1); Sodium 137 mmol/L (137-145)
[2021-10-15 19:16] LABS: Protein (Total) Urine Random 6 mg/dL (0-12)
[2021-10-17 07:39] LABS: Parathyroid Hormone Int 64 pg/mL (15-65)
== END ==
PROVIDERS: PCP Internal Medicine; Referring Provider Student in an Organized Health Care Education/Training Program; Visit Provider Student in an Organized Health Care Education/Training Program
DX: N05.9 Unspecified nephritic syndrome with unspecified morphologic changes (principal); D64.9 Anemia, unspecified; N25.81 Secondary hyperparathyroidism of renal origin; R80.9 Proteinuria, unspecified
CPT/HCPCS: 36415; 80048; 82570; 83970; 84156; 85014; 85018

== ENCOUNTER → 2022-03-25 14:44 | Outpatient (CLI) | payer MEDICARE, SELFPAY ==
--- NOTE | 2022-03-25 14:47 | DI.RAD.S_ITS ---
PROCEDURE: XR CHEST 2V INDICATIONS: SHORTNESS OF BREATH TECHNIQUE: 2 views of the chest were acquired. COMPARISON: None. FINDINGS: Surgical changes and devices: Left pacemaker. Lungs and pleura: Hazy opacity in the left lower lobe. No pleural effusions or pneumothorax. Mediastinum: Mediastinal contours are normal. Heart size is normal. Bones and chest wall: No suspicious bony abnormalities. Soft tissues appear unremarkable. IMPRESSION: Hazy opacity in the left lower lobe. This could represent infectious/inflammatory etiology or atelectasis. Dictated by: Moe Brothers M.D. on 03/25/2022 at 17:18 Approved by: Moe Brothers M.D. on 03/25/2022 at 17:26
== END ==
PROVIDERS: PCP Internal Medicine; Referring Provider Internal Medicine; Visit Provider Internal Medicine
DX: R06.02 Shortness of breath (principal); Z95.0 Presence of cardiac pacemaker
CPT/HCPCS: 71046

== ENCOUNTER → 2022-05-28 17:16 | Outpatient (CLI) | payer OTHER, SELFPAY ==
[2022-05-28 17:51] LABS: Hemoglobin 13.8 g/dL (13.5-17.5)
[2022-05-28 18:17] LABS: BUN Creatinine Ratio 19.3 (6-22); Blood Urea Nitrogen 22 mg/dL (9-20); Calcium 9.4 mg/dL (8.4-10.2); Carbon Dioxide 26 mmol/L (22-32); Chloride 105 mmol/L (98-107); Estimated Glomerular Filt Rate > 60 mL/min (>60); Glucose 126 mg/dL (80-110); HEMOLYSIS < 15 (0-50); Potassium 4.1 mmol/L (3.4-5.1); Sodium 138 mmol/L (137-145)
[2022-05-28 19:40] LABS: Creatinine Urine Random 80.4 mg/dL; Protein (Total) Urine Random 6 mg/dL (0-12); Protein Creatinine Ratio Urine 0.07 GRAM/24H
[2022-05-30 11:27] LABS: Parathyroid Hormone Int 86 pg/mL (15-65)
== END ==
PROVIDERS: PCP Internal Medicine; Referring Provider Student in an Organized Health Care Education/Training Program; Visit Provider Student in an Organized Health Care Education/Training Program
DX: N05.9 Unspecified nephritic syndrome with unspecified morphologic changes (principal); D64.9 Anemia, unspecified; R80.9 Proteinuria, unspecified; N25.81 Secondary hyperparathyroidism of renal origin
CPT/HCPCS: 36415; 80048; 82570; 83970; 84156; 85014; 85018

== ENCOUNTER → 2022-09-28 16:38 | Outpatient (CLI) | payer MEDICARE, SELFPAY ==
[2022-09-28 19:31] LABS: Blood Urea Nitrogen 26 mg/dL (9-20); Calcium 8.8 mg/dL (8.4-10.2); Carbon Dioxide 25 mmol/L (22-32); Chloride 104 mmol/L (98-107); Estimated Glomerular Filt Rate 50 mL/min (>60); Glucose 89 mg/dL (80-110); HEMOLYSIS < 15 (0-50); Potassium 4.7 mmol/L (3.4-5.1); Sodium 137 mmol/L (137-145)
== END ==
PROVIDERS: PCP Internal Medicine; Referring Provider Internal Medicine Cardiovascular Disease; Visit Provider Internal Medicine Cardiovascular Disease
DX: I10 Essential (primary) hypertension (principal)
CPT/HCPCS: 36415; 80048

== ENCOUNTER → 2022-09-29 13:23 | Outpatient (CLI) | payer MEDICARE, SELFPAY ==
--- NOTE | 2022-09-29 13:25 | DI.RAD.S_ITS ---
PROCEDURE: XR KNEE LT 3V INDICATIONS: Ground level fall TECHNIQUE: 3 views of the knee were acquired. COMPARISON: [facility], [facility], XR KNEE RT 3V, 07/09/2021, 13:09. [facility], [facility], XR KNEE LT 4V, 01/09/2021, 17:07. FINDINGS: Bones: Postsurgical changes from total left knee arthroplasty. The hardware is in expected location. No fractures or dislocations. No suspicious bony lesions. Soft tissues: Small joint effusion. No suspicious soft tissue calcifications. Soft tissue swelling about the knee. IMPRESSION: The status post left total knee arthroplasty with hardware in expected position. No acute fractures. If high clinical concern for acute fracture, consider cross-sectional imaging now or repeat x-ray in 10-14 days or cross-sectional imaging. Dictated by: Gatito Salter M.D. on 09/29/2022 at 15:05 Approved by: Gatito Salter M.D. on 09/29/2022 at 15:07
--- NOTE | 2022-09-29 13:25 | DI.RAD.S_ITS ---
PROCEDURE: XR ELBOW RT MIN 3V INDICATIONS: Ground level fall TECHNIQUE: 3 views of the elbow were acquired. COMPARISON: None. FINDINGS: Bones: No fractures or dislocations. No suspicious bony lesions. Arthritic changes of the elbow with osteophyte formation. Prominent olecranon enthesophyte. Enthesopathy at the medial and lateral epicondyles, may represent epicondylitis. Soft tissues: No elbow joint effusion. No suspicious soft tissue calcifications. IMPRESSION: No acute fractures. Enthesopathy at the medial and lateral epicondyles, may represent epicondylitis. If there is high clinical concern for acute fracture, consider cross-sectional imaging now or repeat x-ray or cross-sectional imaging in 10-14 days. Dictated by: Gatito Salter M.D. on 09/29/2022 at 15:02 Approved by: Gatito Salter M.D. on 09/29/2022 at 15:05
== END ==
PROVIDERS: PCP Internal Medicine; Referring Provider Nurse Practitioner Family; Visit Provider Nurse Practitioner Family
DX: S89.92XA Unspecified injury of left lower leg, initial encounter (principal); S59.901A Unspecified injury of right elbow, initial encounter; M77.8 Other enthesopathies, not elsewhere classified; W18.30XA Fall on same level, unspecified, initial encounter; Z96.652 Presence of left artificial knee joint
CPT/HCPCS: 73080; 73562

== ENCOUNTER → 2022-10-05 19:42 | Outpatient (CLI) | payer MEDICARE, SELFPAY | PROVIDERS: PCP Internal Medicine; Visit Provider Physician Assistant | DX: L08.9 Local infection of the skin and subcutaneous tissue, unspecified (principal) | CPT/HCPCS: 87070; 87075; 87077; 87147; 87186; 87205 ==

== ENCOUNTER → 2022-10-06 16:20 | Outpatient (CLI) | payer MEDICARE, SELFPAY ==
[2022-10-06 17:20] LABS: Add Manual Diff / Slide Review NO; Basophils Absolute Auto 100 /uL (0-100); Basophils Percent Auto 1.2 % (0-2); Eosinophils Absolute Auto 100 /uL (0-450); Eosinophils Percent Auto 2.7 % (2-4); Hematocrit 37.8 % (41-53); Hemoglobin 12.9 g/dL (13.5-17.5); Lymphocytes Absolute Auto 1100 /uL (1100-4500); Lymphocytes Percent Auto 21.3 % (25-40); Mean Corpuscular Hemoglobin 30.7 PG (26-34); Mean Corpuscular Volume 90.4 fL (80-100); Monocytes Absolute Auto 500 /uL (0-900); Neutrophils Absolute Auto 3500 /uL (1500-7000); Neutrophils Percent Auto 65.8 % (50-75); Platelet Count 140 X10^3/uL (150-400); Red Blood Cell Count 4.19 X10^6/uL (4.5-5.9); Red Cell Distribution Width 14.8 % (11.6-14.8); White Blood Cell Count 5.3 X10^3/uL (4.5-11.0)
[2022-10-06 17:38] LABS: Cholesterol 127 mg/dL (140-199); HDL Cholesterol 63 mg/dL (40-60); LDL Cholesterol Calculated 47 mg/dL (<100); Triglycerides 83 mg/dL (35-150)
== END ==
PROVIDERS: PCP Internal Medicine; Referring Provider Internal Medicine Cardiovascular Disease; Visit Provider Internal Medicine Cardiovascular Disease
DX: I10 Essential (primary) hypertension (principal)
CPT/HCPCS: 36415; 80061; 85025

== ENCOUNTER → 2022-11-16 14:48 | Outpatient (CLI) | payer MEDICARE, SELFPAY ==
--- NOTE | 2022-11-16 | DI.ECHO.S_ITS ---
[facility] +---------+ : : [address] : [place] : : : : [id number] : : : : Phone: [phone]+ Echocardiogram Report + + :Name: OUSMANE CARD Study Date: 11/16/2022 Height: 70 in : :[facility] ReadingLocation: Weight: 273 lb : : Gender: Male BSA: 2.4 m2 : :: 1955 Age: 67 yrs BP: 137/76 mmHg: :Reason For Study: Atrial Fibrillation : :Ordering Physician: TRACI, : :DEJA Performed By: Stefania Mohamud : :Referring: DEJA LAMAR : + + Interpretation Summary Patient refused the remainder of the exam.The patient was in an ample amount of pain during the exam due to being on their left side. The patient stated that they were no longer able to maintain a position of laying on their side and that they wished to reschedule the exam when they would be able to take pain meds. They questioned whether there was a drug that would be more suitable than oxycodone, which is their current medication used for their treatment of pain. 1) Normal left ventricular size, thickness, and systolic function (EF 55-60%). 2) Mildly enlarged right ventricle with borderline reduced function. There is a pacemaker lead in the right ventricle. 3) There is mild aortic stenosis. 4) There is mild to moderate tricuspid regurgitation. 5) The ascending aorta is mildly enlarged at 4.1cm. 6) No prior Echo available for comparison. Procedure: A two-dimensional transthoracic echocardiogram with color flow and Doppler was performed in limited views only. The study quality was technically difficult. The patient had an echocardiogram, but there is no comparison study available. The patient has a paced rhythm. Left Ventricle: Left ventricular ejection fraction is approximately 55-60% by visual estimation. The left ventricle is normal in size and wall thickness. Proximal septal thickening is noted. Diastolic parameters suggest a relaxation abnormality of the left ventricle, consistent with probable normal filling pressures. Right Ventricle: The right ventricle is mildly dilated. There is a pacemaker lead in the right ventricle. Right ventricular systolic function is borderline reduced. Atria: The left atrium is severely dilated. Right atrial size is normal. Mitral Valve: The mitral valve leaflets appear mildly thickened, but open well. There is no mitral valve stenosis. There is mild mitral regurgitation. Aortic Valve: The aortic valve is trileaflet. There is moderate aortic valve sclerosis. There is mild aortic stenosis. The peak aortic velocity is 2.38 m/sec. The aortic valve mean gradient is 11 mmHg. There is mild aortic regurgitation. Tricuspid Valve: The tricuspid valve is normal. There is no tricuspid stenosis. There is mild to moderate tricuspid regurgitation. Right ventricular systolic pressure is estimated to be 29 mmHg plus the clinically estimated CVP which cannot be estimated on this exam. Pulmonic Valve: The pulmonic valve leaflets are thin and pliable; valve motion is normal. There is no pulmonic valvular stenosis. There is trace pulmonic regurgitation. Great Vessels: The aortic root is normal size. The ascending aorta is mildly enlarged. The pulmonary artery is normal size. The inferior vena cava was not visualized. MMode/2D Measurements & Calculations LVIDd: 4.5 cm LVOT diam: 1.9 cm LVIDs: 3.2 cm Ao root diam: 3.0 cm FS: 28.9 % asc Aorta Diam: 4.1 cm IVSd: 1.2 cm LVPWd: 1.0 cm LV estrada. diameter/BSA (cm/m^2): 1.9 LV sys. diameter/BSA (cm/m^2): 1.3 LA A4 area: 31.0 cm2 RA long axis: 6.1 cm RA area: 20.8 cm2 RA vol: 59.9 ml RA : 25.2 ml/m2 RVD1 (basal): 4.7 cm TAPSE_phl: 1.8 cm Doppler Measurements & Calculations Ao V2 max: 238.5 cm/sec TR max shaista: 271.7 cm/sec Ao V2 mean: 153.8 cm/sec TR max P.5 mmHg Ao max P.8 mmHg PA V2 max: 94.1 cm/sec Ao mean P.0 mmHg PA V2 mean: 64.6 cm/sec Ao V2 VTI: 47.9 cm PA mean P.0 mmHg PA pr(Accel): 30.4 mmHg AV VTI-pr_phl: 47.1 cm Reading Physician:04:35 PM
== END ==
LOC: ECHO 14:49
PROVIDERS: PCP Internal Medicine; Referring Provider Internal Medicine Cardiovascular Disease; Visit Provider Internal Medicine Cardiovascular Disease
DX: I08.3 Combined rheumatic disorders of mitral, aortic and tricuspid valves (principal); I48.19 Other persistent atrial fibrillation; I77.89 Other specified disorders of arteries and arterioles
CPT/HCPCS: 93306

== ENCOUNTER → 2022-11-19 12:55 | Outpatient (CLI) | payer MEDICARE, SELFPAY ==
--- NOTE | 2022-11-19 | DI.CT.S_ITS ---
PROCEDURE: CT LUMBAR SPINE WO CON INDICATIONS: Radiculopathy, lumbar region TECHNIQUE: Noncontrast 3 mm thick sections acquired from the T12 level to the sacrum. Sagittal and coronal reformats were constructed. For radiation dose reduction, the following was used: automated exposure control. COMPARISON: [facility], CT, CT ANGIO ABDOMEN PELVIS, 10/23/2020, 13:33. FINDINGS: Image quality: Excellent. Bones: No acute vertebral body compression fractures. No suspicious lytic or blastic bony lesions. No pars defects. Mild levoconvex scoliotic curvature is noted. Mild grade 1 anterolisthesis is seen at the L5-S1 level. No associated pars defects are seen. T11-T12: At least moderate loss of disc height is seen. A degree of vertebral body fusion can be seen. At least moderate disc bulge is seen, with a central/right disc osteophyte protrusion. There is moderate to severe bilateral neural foraminal narrowing seen, right worse than left. At least moderate central canal narrowing is seen. T12-L1: At least moderate loss of disc height is seen. Bridging endplate osteophytes are seen. At least moderate disc bulge is seen, which is eccentric to the right. Moderate facet joint hypertrophy is seen. There is at least moderate right-sided and moderate left-sided neural foraminal narrowing. At least moderate central canal narrowing is seen. L1-L2: At least moderate loss of disc height is seen. Bridging endplate osteophytes are seen. Moderate disc bulge is seen, which is eccentric to the right. Moderate bilateral neural foraminal narrowing is seen. Moderate central canal narrowing is seen. L2-L3: Moderate to severe loss of disc height is seen. There is a degree of vertebral body fusion seen. Relatively prominent bridging endplate osteophytes can be seen on both the right and on the left as well as anteriorly. Posteriorly projected endplate osteophytes are seen. At least moderate facet hypertrophy is seen at this level. There has been prior removal of the posterior elements. Moderate to severe bilateral neural foraminal narrowing can be seen. Moderate to severe central canal narrowing is seen along the superior aspect of this disc level, as on series 3, image 42. L3-L4: Prominent vacuum disc phenomenon is seen at this level. Overall moderate loss of disc height is seen. Endplate irregularity and sclerosis can be seen. Bridging endplate osteophytes are seen anteriorly as well as on the right and on the left. Posteriorly projected endplate osteophytes are seen. Prominent facet hypertrophy is seen, right worse than left. There is severe bilateral neural foraminal narrowing seen. Severe central canal narrowing is seen. L4-L5: Severe loss of disc height is seen. A degree of vertebral body fusion is seen. Bridging endplate osteophytes are seen, which are worst anteriorly and on the right. Posteriorly projected endplate osteophytes are seen. At least moderate facet hypertrophy is seen. Moderate to severe bilateral neural foraminal narrowing can be seen. There is been prior removal of the posterior elements. Moderate central canal narrowing is seen. L5-S1: Moderate to severe loss of disc height is seen. At least moderate disc bulge is seen. Prominent facet hypertrophy is seen at this level. Bridging endplate osteophytes are seen. There is severe left-sided and moderate to severe right-sided neural foraminal narrowing. Moderate to severe central canal narrowing is seen. Soft tissues: No retroperitoneal masses or hematomas. Visualized aorta is normal in caliber. Postoperative change of the proximal stomach is partially seen. Left hip arthroplasty hardware is seen. IMPRESSION: Multiple levels of significant lumbar spine degenerative change can be seen, which are worst inferiorly. Additional findings: Stomach postoperative change Age left hip arthroplasty hardware Dictated by: Tim Daniels M.D. on 11/19/2022 at 15:36 Approved by: Tim Daniels M.D. on 11/19/2022 at 15:42
== END ==
PROVIDERS: PCP Internal Medicine; Referring Provider Physical Medicine & Rehabilitation; Visit Provider Physical Medicine & Rehabilitation
DX: M47.26 Other spondylosis with radiculopathy, lumbar region (principal); M47.27 Other spondylosis with radiculopathy, lumbosacral region; Z96.642 Presence of left artificial hip joint
CPT/HCPCS: 72131

== ENCOUNTER → 2022-12-28 12:57 | Outpatient (CLI) | payer MEDICARE, SELFPAY ==
--- NOTE | 2022-12-28 | DI.RAD.S_ITS ---
PROCEDURE: FL BARIUM SWALLOW INDICATIONS: DYSPHAGIA COMPARISON: None. FINDINGS: Function: There is markedly we can esophageal peristalsis, with significant stasis of contrast and tertiary contractions. No elicited gastroesophageal reflux. There is normal transit of a calibrated barium tablet through the esophagus into the stomach. Morphology: Air-contrast images demonstrate normal mucosal morphology. Single contrast views show no esophageal strictures, extrinsic mass effects, or diverticula. Limited images of the stomach demonstrate normal appearance. IMPRESSION: Marked esophageal dysmotility. Dictated by: Eriberto Lombardi M.D. on 12/29/2022 at 14:56 Approved by: Eriberto Lombardi M.D. on 12/29/2022 at 14:56
--- NOTE | 2022-12-28 | DI.RAD.S_ITS ---
PROCEDURE: XR FOOT RT MIN 3V INDICATIONS: CHRONIC FOOT PAIN TECHNIQUE: 3 views of the foot were acquired. COMPARISON: None. FINDINGS: Bones: No fractures or dislocations. No suspicious bony lesions. Severe great toe IP joint degenerative change. Tarsometatarsal degenerative change. Soft tissues: No tibiotalar joint effusion. Achilles tendon appears normal. IMPRESSION: Tarsometatarsal degenerative change. Severe great toe IP joint degenerative change. No evidence acute bony abnormality. Dictated by: Britton Gomez M.D. on 12/28/2022 at 14:35 Approved by: Britton Gomez M.D. on 12/28/2022 at 14:37
== END ==
PROVIDERS: PCP Internal Medicine; Referring Provider Student in an Organized Health Care Education/Training Program; Visit Provider Student in an Organized Health Care Education/Training Program
DX: R13.10 Dysphagia, unspecified (principal); K22.89 Other specified disease of esophagus
CPT/HCPCS: 73630; 74220

== ENCOUNTER 2023-05-29 18:53 | Emergency (ER) | payer MEDICARE, SELFPAY ==
[2023-05-29 18:57] VITALS: BP 110/59; PULSE 105; RESP 18; TEMP 36.7; O2SAT 98; BMI 37.9
--- NOTE | 2023-05-29 19:16 | DI.RAD.S_ITS ---
PROCEDURE: XR KNEE LT 3V INDICATIONS: knee pain after exercise yesterday TECHNIQUE: 3 views of the knee were acquired. COMPARISON: [facility], CR, XR KNEE LT 3V, 09/29/2022, 13:22. FINDINGS: Bones: No fractures or dislocations. No suspicious bony lesions. Knee arthroplasty. Hardware is intact without hardware fracture or periprosthetic lucency to suggest loosening. Alignment is stable. Soft tissues: Moderate joint effusion. No suspicious soft tissue calcifications. IMPRESSION: Moderate effusion. No visualized acute fracture or dislocation. However, if clinical concern and/or pain persist, short interval imaging followup in 7-10 days is recommended, as occult injury cannot be definitively excluded. Dictated by: Abbi Gurrola M.D. on 05/29/2023 at 19:43 Approved by: Abbi Gurrola M.D. on 05/29/2023 at 19:43
--- NOTE | 2023-05-29 19:48 | ED.LOWEXIN ---
HPI - Extremity Injury (Lower) General Chief Complaint: Extremity Injury, Lower Stated Complaint: lt knee inj Time Seen by Provider: 05/29/23 19:13 Source: patient Mode of arrival: Wheelchair History of Present Illness HPI Narrative: 68-year-old male who is here for evaluation of left knee injury. He has had a total knee replacement in the past. He states yesterday he was doing some work outside and does not remember a specific incident that potentially hurt his knee however as the evening went on an into today he has had increasing pain. He does use a cane at baseline. Related Data Home Medications Medication Instructions Recorded Confirmed fluticasone propionate 50 1 spray intranasal BIDP PRN Nasal 03/12/06 01/31/23 mcg/actuation nasal Congestion ##0 spray,suspension (Flonase Allergy Relief) albuterol sulfate 90 mcg/actuation 2 puff INH PRN PRN Shortness Of 10/12/16 01/31/23 aerosol inhaler (Ventolin HFA) Breath ##0 cetirizine 10 mg tablet 10 mg PO QPM ##0 10/12/16 01/31/23 finasteride 5 mg tablet 5 mg PO QDAY ##0 10/12/16 01/31/23 furosemide 20 mg tablet 20 mg PO QDAY PRN Water retention 10/12/16 01/31/23 ##0 hydrocodone 10 mg-acetaminophen 1 tab PO Q6H ##0 10/12/16 01/31/23 325 mg tablet (Dunsmuir) losartan 25 mg tablet 25 mg PO QDAY ##0 10/12/16 01/31/23 multivitamin (Multiple Vitamins 1 tab PO QPM ##0 10/12/16 01/31/23 tablet) pantoprazole 40 mg tablet,delayed 40 mg PO QDAY ##0 10/12/16 01/31/23 release tamsulosin 0.4 mg capsule (Flomax) 0.4 mg PO BID ##0 10/12/16 01/31/23 metoprolol succinate 50 mg 50 mg PO DAILY 03/19/20 01/31/23 tablet,extended release 24 hr nitroglycerin 0.4 mg sublingual 0.4 mg sublingual Q5M PRN 12/24/21 01/31/23 tablet atorvastatin 10 mg tablet 10 mg PO DAILY 01/31/23 01/31/23 dabigatran etexilate 150 mg capsule mg PO 01/31/23 01/31/23 oxycodone-acetaminophen 10 mg-325 1 tab PO 4XD PRN 01/31/23 01/31/23 mg tablet Previous Rx's Medication Instructions Recorded lidocaine 5 % topical patch 1 patch topical DAILY PRN pain #30 07/09/21 (Lidoderm) ea doxycycline hyclate 100 mg capsule 100 mg PO BID #10 caps 10/09/22 Allergies Allergy/AdvReac Type Severity Reaction Status Date / Time tramadol Allergy Intermediate shakey Verified 01/31/23 10:44 NSAIDS (Non-Steroidal AdvReac Intermediate pt is not Verified 01/31/23 10:44 Anti-Inflamma supposed [NSAIDS (NON-STEROIDAL to take ANTI-INFLAMMA] them Review of Systems Constitutional Constitutional: Reports system reviewed and no additional complaints, except as documented Musculoskeletal Musculoskeletal: Reports system reviewed and no additional complaints, except as documented Integumentary/Breasts Skin/Breast: Reports system reviewed and no additional complaints, except as documented Neurologic Neurologic: Reports system reviewed and no additional complaints, except as documented Patient History Medical History Chronic, continuous use of opioids Iron deficiency anemia following bariatric surgery BPH w/o urinary obs/LUTS DDD (degenerative disc disease), lumbar Pacemaker Allergic rhinitis Obstructive sleep apnea, adult Obesity (BMI 30-39.9) Hyperlipidemia Fatigue due to sleep pattern disturbance GERD (gastroesophageal reflux disease) Essential 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) Left inguinal hernia Chronic kidney disease (CKD) stage G3a/A1, moderately decreased glomerular filtration rate (GFR) between 45-59 mL/min/1.73 square meter and albuminuria creatinine ratio less than 30 mg/g Atrial fibrillation Surgical History H/O gastric bypass H/O left inguinal hernia repair History of cholecystectomy Family History Family/Other Loud snoring Dementia Father Loud snoring Obesity Hypertension Heart disease Mother Loud snoring Obesity Hypertension Depression Anxiety Family/Other Hypertension Depression Social History household members: spouse Smoking Status: Never smoker alcohol intake: never Smoking Status: Never smoker alcohol intake frequency: holidays/special occasions only Substance Use Type: does not use Exam Initial Vital Signs Initial Vital Signs: Vital Signs Temperature 98.1 F 05/29/23 18:57 Pulse Rate 105 H 05/29/23 18:57 Respiratory Rate 18 05/29/23 18:57 Blood Pressure 110/59 L 05/29/23 18:57 Pulse Oximetry 98 05/29/23 18:57 Oxygen Delivery Method Room Air 05/29/23 18:57 Skin Other: Surgical incision on anterior knee appears well. Extrem Other: Small effusion of the left knee. Patellar tendon quadriceps tendon intact. Hamstrings intact. Discomfort is along the medial joint line. Course Orders Ordered: ED Orders 05/29/23 19:16 XR knee LT 3V Stat Discontinued Medications Hydromorphone HCl (Hydromorphone 1 Mg Inj) 1 mg IM NOW ONE Stop: 05/29/23 20:12 Last Admin: 05/29/23 20:18 Dose: 1 mg Documented By: SB Ketorolac Tromethamine (Ketorolac 30 Mg/Ml Vial) 30 mg IM NOW ONE Stop: 05/29/23 20:12 Last Admin: 05/29/23 20:18 Dose: 30 mg Documented By: SB Vital Signs Vital signs: Vital Signs - 8 hr 05/29/23 18:57 05/29/23 20:26 05/29/23 20:26 Temperature 98.1 F Pulse Rate 105 H 86 Respiratory Rate 18 Blood Pressure 110/59 L 98/59 L Pulse Oximetry 98 99 Oxygen Delivery Method Room Air 05/29/23 20:30 05/29/23 20:52 Temperature Pulse Rate 89 84 Respiratory Rate 18 16 Blood Pressure 98/59 L Pulse Oximetry 100 98 Oxygen Delivery Method Room Air MDM - Extremity Injury (Lower) Imaging Data Extremity x-ray #1: Radiologist's Impression: PROCEDURE: CT ABDOMEN PELVIS W CON INDICATIONS: LEAKING L NEPHROSTOMY TUBE TECHNIQUE: After the administration of intravenous contrast, axial sections acquired from the lung bases to the pubic symphysis. Coronal and sagittal reformats were performed. For radiation dose reduction, the following was used: automated exposure control, adjustment of mA and/or kV according to patient size. COMPARISON: Left percutaneous nephrostomy tube placement 05/09/2023, CT KUB 03/17/2023. FINDINGS: Image quality: Diagnostic. Lower Chest: No significant findings. ABDOMEN: Liver: No solid mass. Gallbladder: No radiopaque gallstones or wall thickening. Biliary ducts: No biliary dilation. Pancreas: No ductal dilation. Spleen: Size is within normal limits. Adrenal Glands: No adrenal nodules. Kidneys and Ureters: Double-J nephroureteral stent is in place. There is a left percutaneous nephrostomy tube which is in appropriate position. There is redemonstration of left hydronephrosis. There is a foci of air within the left collecting system, possibly from recent instrumentation. Unchanged 6 mm calculus at the left inferior pole (HU 430). No solid mass. No complex renal cystic lesion which requires follow up. Stomach and Bowel: Normal colonic caliber, without significant wall thickening. Colonic diverticula without acute inflammation. Peritoneum: No abnormal intraperitoneal fluid. No free air. Ventral Wall: No significant ventral hernia. Abdominal Nodes: No retroperitoneal or mesenteric adenopathy by size criteria. Vessels: Aorta and inferior vena cava are normal in size. PELVIS: Pelvic Organs: Unremarkable. Bladder: Bladder is collapsed around a Lamas catheter in situ.. Pelvic Nodes: No enlarged lymph nodes. Miscellaneous: No inguinal hernias are seen. Bones: No aggressive osseous abnormality. IMPRESSION: Status post left percutaneous nephrostomy and left double-J nephroureteral stent are in appropriate position. Foci of air within the left collecting system, likely related to recent procedure. Correlate with clinical history. Nonobstructing 6 mm left inferior pole calculus, as before. MDM Narrative Medical decision making narrative: Patient does have a small effusion in the knee. He has had a total knee replacement which means to concern for meniscus injury or ACL PCL was non-existent. No fractures noted on the x-ray. Low suspicion for septic joint. He denies specific trauma. Recommend conservative measures for now. I did discuss all this with him. Did not recommend an arthrocentesis for concern about introducing an infection. Was no indication for antibiotics. Will have patient contact his orthopedic surgeon and primary care doctor for follow-up. He expressed understanding and agreement. Discharge Plan Departure Patient Disposition: Home Clinical Impression: Effusion of knee joint, left Instructions: How To Perform RICE (Rest, Ice, Compress, Elevate), How to Apply an Elastic Wrap on Knee Activity Restrictions/Additional Instructions: Continue to take all of your medications as directed. I do recommend that you use the elastic bandage to help support your knee. There were no fractures noted on the x-ray today so you can walk on your leg as tolerated. Contact the orthopedic doctor for follow-up. 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 Return to the emergency department for new symptoms. Prescriptions: No Action atorvastatin 10 mg tablet 10 mg PO DAILY oxycodone-acetaminophen 10-325 mg tablet 1 tab PO 4XD PRN dabigatran etexilate 150 mg capsule PO fluticasone propionate [Flonase Allergy Relief] 9.9 ML spray,suspension 1 spray Intranasal BIDP PRN (Reason: Nasal Congestion) Qty: 0 finasteride 5 MG tablet 5 mg PO QDAY Qty: 0 pantoprazole 40 MG tablet,delayed release (DR/EC) 40 mg PO QDAY Qty: 0 losartan 25 MG tablet 25 mg PO QDAY Qty: 0 hydrocodone-acetaminophen [Dunsmuir] 10 MG/325 MG tablet 1 tab PO Q6H Qty: 0 Patient Comments: pt usually takes 3 a day albuterol sulfate [Ventolin HFA] 90 MCG/PUFF HFA aerosol inhaler 2 puff INH PRN PRN (Reason: Shortness Of Breath) Qty: 0 tamsulosin [Flomax] 0.4 MG capsule,extended release 24hr 0.4 mg PO BID Qty: 0 multivitamin [Multiple Vitamins] 1 EACH tablet 1 tab PO QPM Qty: 0 cetirizine 10 MG tablet 10 mg PO QPM Qty: 0 furosemide 20 MG tablet 20 mg PO QDAY PRN (Reason: Water retention) Qty: 0 doxycycline hyclate 100 mg capsule 100 mg PO BID Qty: 10 0RF metoprolol succinate 50 mg tablet extended release 24 hr 50 mg PO DAILY lidocaine [Lidoderm] 5 % adhesive patch,medicated 1 patch topical DAILY PRN (Reason: pain) Qty: 30 0RF Rx Instructions: leave on most painful area for up to 12 hrs nitroglycerin 0.4 mg tablet, sublingual 0.4 mg sublingual Q5M PRN Rx Instructions: do not exceed 3 doses per episode Referrals: Natasha Carroll MD [Primary Care Provider] - Stand Alone Forms: Patient Portal/API, Work Release Note
[2023-05-29] MEDS: KETOROLAC 30 MG/ML VIAL IM (20:18)
[2023-05-29] MEDS: HYDROMORPHONE 1 MG INJ IM (20:18)
[2023-05-29 20:26] VITALS: BP 98/59; PULSE 86; O2SAT 99
[2023-05-29 20:30] VITALS: PULSE 89; RESP 18; O2SAT 100
[2023-05-29 20:52] VITALS: BP 98/59; PULSE 84; RESP 16; O2SAT 98
--- NOTE | 2023-06-10 | DI.CT.S_ITS ---
PROCEDURE: CT STROKE INDICATIONS: LEFT FACIAL DROOP TECHNIQUE: Noncontrast 4.5 mm thick angled axial sections acquired from the foramen magnum to the vertex, with coronal reformats. For radiation dose reduction, the following was used: automated exposure control, adjustment of mA and/or kV according to patient size. COMPARISON: None. FINDINGS: Image quality: Diagnostic. CSF spaces: Basal cisterns are patent. No extra-axial fluid collections. The ventricles are symmetric in size and shape. Brain: No intracranial bleeds or masses. There is cerebral volume loss for age, with resultant ventricular and sulcal prominence. There are periventricular and deep white matter chronic small vessel ischemic changes. There is intracranial internal carotid artery atherosclerosis. Skull and face: Calvarium and visualized facial bones appear intact, without suspicious lesions. Sinuses: Visualized sinuses and mastoids are clear. IMPRESSION: Possible dense MCA sign on the right, correlate with CTA. Resendez-white differentiation is preserved. Findings are concordant with preliminary interpretation provided by [facility]. This study fulfills neurological imaging criteria for inclusion or exclusion of acute stroke therapies based on available published neurological guidelines. Dictated by: Gatito Salter M.D. on 06/10/2023 at 7:59 Approved by: Gatito Salter M.D. on 06/10/2023 at 8:00
== END 2023-05-29 20:53 | disposition home or self-care (01) ==
PROVIDERS: Emergency Provider Emergency Medicine; PCP Internal Medicine
DX: M25.462 Effusion, left knee (principal); Z79.899 Other long term (current) drug therapy; Z96.652 Presence of left artificial knee joint
CPT/HCPCS: 73562; 96372; 99283; J1170; J1885

== ENCOUNTER 2023-06-03 02:31 | Inpatient (IN) | payer MEDICARE, SELFPAY ==
[2023-06-03] VITALS (42 sets, daily range): BP systolic 71–137; BP diastolic 41–69; PULSE 91–176; RESP 9–32; TEMP 36.1–36.6; O2SAT 89–99; BMI 40.1; BMI 41.3
--- NOTE | 2023-06-03 | DI.CT.S_ITS ---
PROCEDURE: CT KNEE LEFT WITHOUT CON INDICATIONS: PAIN TECHNIQUE: Noncontrast 1-1.5 mm axial sections acquired from the mid-patella to the proximal tibia, with coronal and sagittal reformats. For radiation dose reduction, the following was used: automated exposure control, adjustment of mA and/or kV according to patient size. COMPARISON: [facility], CR, XR KNEE LT 3V, 05/29/2023, 19:16. FINDINGS: Image quality: Metal streak artifact related to the knee arthroplasty obscures structures at the same levels. Bones: Postsurgical changes are seen from total knee arthroplasty. Hardware components are in expected positions without definite signs of loosening. No acute osseous fracture identified. Suprapatellar and infrapatellar enthesophytes are present. Soft tissues: Moderate joint effusion. Foci of soft tissue gas are seen in the posterior lower leg inferior to the knee within the proximal soleus muscle as well as within a fluid collection deep to the gastrocnemius muscle. Nonspecific subcutaneous edema is seen surrounding the knee. There is mild fatty infiltration of the visualized musculature that is more prominent in the distal semimembranosus muscle. IMPRESSION: 1. Collection of fluid and gas deep to the gastrocnemius muscle in the proximal lower leg with possible intramuscular gas in the soleus muscle. If there has been no recent instrumentation, findings are suspicious for infection with a gas-forming organism. Necrotizing fasciitis cannot be excluded, and close clinical correlation is recommended. 2. Postsurgical changes from total knee arthroplasty. 3. Moderate knee effusion. No definite intra-articular gas. No acute osseous fracture. Multiple attempts were made to contact the referring provider at the time of this dictation, and a message was left with callback instructions. Approved by: Joselito Boyd M.D. on 06/03/2023 at 14:50
--- NOTE | 2023-06-03 02:40 | ED.FALL ---
HPI - Fall General Chief Complaint: Fall Stated Complaint: fall Time Seen by Provider: 06/03/23 02:40 History of Present Illness HPI Narrative: Patient is a 68-year-old male history of atrial fibrillation on Pradaxa, hyperlipidemia, GERD and hypertension presents today with increasing left knee pain and falls. He was seen and evaluated here May 28 with left knee pain. He was working out in the yd at that time can not remember any specific injury. He an x-ray which was negative. He has had increasing pain. He was given oxycodone he took a tablet 1 hour prior to arrival he has a bit sleepy now. He says that he has fallen at least 5 times since then. He denies any injury from the falls. He denies hitting his head or losing consciousness. No numbness tingling or weakness. He continues to have left knee pain denies any back pain or hip pain. His left leg is noted to be quite swollen. He reports that he is having some increasing shortness of breath with exertion. Denies any fever or chills. No obvious chest pain despite being in AFib with RVR in the monitor. Related Data Home Medications Medication Instructions Recorded Confirmed fluticasone propionate 50 1 spray intranasal BIDP PRN Nasal 03/12/06 01/31/23 mcg/actuation nasal Congestion ##0 spray,suspension (Flonase Allergy Relief) albuterol sulfate 90 mcg/actuation 2 puff INH PRN PRN Shortness Of 10/12/16 01/31/23 aerosol inhaler (Ventolin HFA) Breath ##0 cetirizine 10 mg tablet 10 mg PO QPM ##0 10/12/16 01/31/23 finasteride 5 mg tablet 5 mg PO QDAY ##0 10/12/16 01/31/23 furosemide 20 mg tablet 20 mg PO QDAY PRN Water retention 10/12/16 01/31/23 ##0 hydrocodone 10 mg-acetaminophen 1 tab PO Q6H ##0 10/12/16 01/31/23 325 mg tablet (Wheeler) losartan 25 mg tablet 25 mg PO QDAY ##0 10/12/16 01/31/23 multivitamin (Multiple Vitamins 1 tab PO QPM ##0 10/12/16 01/31/23 tablet) pantoprazole 40 mg tablet,delayed 40 mg PO QDAY ##0 10/12/16 01/31/23 release tamsulosin 0.4 mg capsule (Flomax) 0.4 mg PO BID ##0 10/12/16 01/31/23 metoprolol succinate 50 mg 50 mg PO DAILY 03/19/20 01/31/23 tablet,extended release 24 hr nitroglycerin 0.4 mg sublingual 0.4 mg sublingual Q5M PRN 12/24/21 01/31/23 tablet atorvastatin 10 mg tablet 10 mg PO DAILY 01/31/23 01/31/23 dabigatran etexilate 150 mg capsule mg PO 01/31/23 01/31/23 oxycodone-acetaminophen 10 mg-325 1 tab PO 4XD PRN 01/31/23 01/31/23 mg tablet Previous Rx's Medication Instructions Recorded lidocaine 5 % topical patch 1 patch topical DAILY PRN pain #30 07/09/21 (Lidoderm) ea doxycycline hyclate 100 mg capsule 100 mg PO BID #10 caps 10/09/22 Allergies Allergy/AdvReac Type Severity Reaction Status Date / Time tramadol Allergy Intermediate shakey Verified 01/31/23 10:44 NSAIDS (Non-Steroidal AdvReac Intermediate pt is not Verified 01/31/23 10:44 Anti-Inflamma supposed [NSAIDS (NON-STEROIDAL to take ANTI-INFLAMMA] them Patient History Medical History Chronic, continuous use of opioids Iron deficiency anemia following bariatric surgery BPH w/o urinary obs/LUTS DDD (degenerative disc disease), lumbar Pacemaker Allergic rhinitis Obstructive sleep apnea, adult Obesity (BMI 30-39.9) Hyperlipidemia Fatigue due to sleep pattern disturbance GERD (gastroesophageal reflux disease) 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) Left inguinal hernia Chronic kidney disease (CKD) stage G3a/A1, moderately decreased glomerular filtration rate (GFR) between 45-59 mL/min/1.73 square meter and albuminuria creatinine ratio less than 30 mg/g Atrial fibrillation Surgical History H/O left inguinal hernia repair History of cholecystectomy H/O gastric bypass Family History Family/Other Loud snoring Dementia Father Loud snoring Obesity Hypertension Heart disease Mother Loud snoring Obesity Hypertension Depression Anxiety Family/Other Hypertension Depression Social History household members: spouse Smoking Status: Never smoker alcohol intake: never Smoking Status: Never smoker alcohol intake frequency: holidays/special occasions only Substance Use Type: does not use Exam Initial Vital Signs Initial Vital Signs: Vital Signs Pulse Rate 176 H 06/03/23 02:42 Respiratory Rate 11 L 06/03/23 02:42 Blood Pressure 137/61 06/03/23 02:42 Pulse Oximetry 95 06/03/23 02:42 GENERAL: Alert pleasant 68-year-old male, sleepy but able to wake up and answer questions HEENT: Head atraumatic,EOMI, pupils reactive, face symmetric, Dry mucous membranes CARDIOVASCULAR: Regular rate and rhythm without murmurs, rubs or gallops. RESPIRATORY: Breath sounds equal bilaterally, no wheezes rales or rhonchi. ABDOMEN: Soft, nontender. Normoactive bowel sounds all 4 quadrants. No guarding or rebound. EXTREMITIES: Normal range of motion, no clubbing. Pelvis stable no hip Left lower extremity +2 pitting edema significant swelling distal pedal pulse intact Left knee is stable non erythematous minimal effusion Neurovascularly intact NEUROLOGICAL: Alert and oriented x4.Normal gait and speech. Cranial nerves II through XII grossly intact. Good [id number], good [id number], strength equal bilaterally, no dysarthria or aphasia, sensation in tact to soft touch bilaterally, no visual changes, no facial droop SKIN: Warm, dry, no laceration, no petechiae, no rashes or lesions. Course Orders Ordered: ED Orders 06/03/23 02:41 CT head/brain wo con Stat US periph venous low extrem lt Stat XR chest 1V Stat Urinalysis and Microscopic Stat EKG-12 Lead Stat 06/03/23 02:47 Complete Blood Count AUTO DIFF Stat Comprehensive Metabolic Panel Stat Lipase Stat NT-proBNP (BNP-Adult 18+) Stat PTT Partial Thromboplastin Pan Stat Prothrombin Time INR Stat Troponin & CK Cardiac Panel Stat Acetaminophen (Acetaminophen 325 Mg Tablet) 650 mg PO Q6H PRN PRN Reason: Fever/Mild Pain (1-3) Hydrocodone Bitart/Acetaminophen (Hydrocodone/Acet 10/325 Tablet) 1 tab PO Q6H PRN PRN Reason: Pain, Moderate (4-6) Albuterol (Albuterol 2.5 Mg/3 Ml Neb (Adult)) 2.5 mg INH [id number] PRN PRN Reason: Dyspnea Atorvastatin Calcium (Atorvastatin 20 Mg Tablet) 10 mg PO DAILY [facility] Benzonatate (Benzonatate 100 Mg Capsule) 100 mg PO TID PRN PRN Reason: Cough Calcium Carbonate (Calcium Carbonate 500 Mg Tab) 1,000 mg PO Q4HR PRN PRN Reason: Dyspepsia Dabigatran (Dabigatran 75 Mg Capsule) 150 mg PO BID [facility] Docusate Sodium (Docusate 100 Mg Capsule) 100 mg PO BID [facility] Finasteride (Finasteride 5 Mg Tablet) 5 mg PO DAILY [facility] Furosemide (Furosemide 40 Mg/4 Ml Vial) 40 mg IV Q12HR [facility] Hydralazine HCl (Hydralazine 20 Mg/Ml Vial) 10 mg IV Q6HR PRN PRN Reason: SBP>= 160 or DBP >=110 Hydromorphone HCl (Hydromorphone 0.5 Mg Inj) 0.5 mg IV Q2H PRN PRN Reason: Pain, Severe (7-10) Loratadine (Loratadine 10 Mg Tablet) 10 mg PO QPM [facility] Metoprolol Succinate (Metoprolol Er 50 Mg Tablet) 50 mg PO DAILY [facility] Multivitamins (Multivitamin 1 Tablet) 1 tab PO QPM [facility] Naloxone HCl (Naloxone 0.4 Mg/Ml Vial) 0.2 mg IV Q2MIN PRN PRN Reason: Opiate Reversal Nitroglycerin (Nitroglycerin 0.4 Mg Sl Tab) 0.4 mg SL Q5M PRN PRN Reason: Chest Pain Ondansetron HCl (Ondansetron 4 Mg/2 Ml Inj) 4 mg IV Q8HR PRN PRN Reason: Nausea And Vomiting Oxycodone HCl (Oxycodone Ir 5 Mg Tablet) 5 mg PO Q3H PRN PRN Reason: Pain, Moderate (4-6) Pantoprazole Sodium (Pantoprazole Dr 40 Mg Tablet) 40 mg PO DAILY [facility] Tamsulosin HCl (Tamsulosin 0.4 Mg Capsule) 0.4 mg PO BID [facility] Discontinued Medications Albuterol (Albuterol Hfa Mdi 60 Puff/8 Gm Inhaler) 2 puff INH PRN PRN PRN Reason: Shortness Of Breath Diltiazem HCl (Diltiazem 5 Mg/Ml Sdv) 10 mg IV NOW ONE Stop: 06/03/23 02:49 Last Admin: 06/03/23 02:56 Dose: 10 mg Documented By: Furosemide (Furosemide 40 Mg/4 Ml Vial) 40 mg IV NOW ONE Stop: 06/03/23 04:17 Last Admin: 06/03/23 04:26 Dose: 40 mg Documented By: Sodium Chloride (Normal Saline 0.9%) 1,000 mls @ 1,000 mls/hr IV BOLUS ONE Stop: 06/03/23 04:01 Last Infusion: 06/03/23 04:30 Dose: Infused Documented By: Admin: 06/03/23 03:24 Dose: 1,000 mls/hr Documented By: Metoprolol Succinate (Metoprolol Er 50 Mg Tablet) 50 mg PO NOW ONE Stop: 06/03/23 04:17 Last Admin: 06/03/23 04:59 Dose: 50 mg Documented By: Vital Signs Vital signs: Vital Signs - 8 hr 06/03/23 02:42 06/03/23 02:42 06/03/23 02:51 Temperature 97.8 F Pulse Rate 176 H 138 H Respiratory Rate 11 L 22 Blood Pressure 137/61 137/61 Pulse Oximetry 95 97 Oxygen Delivery Method Room Air Oxygen Flow Rate 06/03/23 02:56 06/03/23 03:00 06/03/23 03:01 Temperature Pulse Rate 138 H 102 H 102 H Respiratory Rate 16 15 Blood Pressure 137/61 Pulse Oximetry 93 93 Oxygen Delivery Method Oxygen Flow Rate 06/03/23 03:01 06/03/23 03:02 06/03/23 03:02 Temperature Pulse Rate 109 H Respiratory Rate 21 Blood Pressure 71/44 L 95/52 L Pulse Oximetry 93 Oxygen Delivery Method Oxygen Flow Rate 06/03/23 03:05 06/03/23 03:05 06/03/23 03:10 Temperature Pulse Rate 104 H 100 H Respiratory Rate 13 9 L Blood Pressure 77/46 L Pulse Oximetry 92 91 Oxygen Delivery Method Oxygen Flow Rate 06/03/23 03:10 06/03/23 03:11 06/03/23 03:11 Temperature Pulse Rate 116 H Respiratory Rate 22 Blood Pressure 74/42 L 77/49 L Pulse Oximetry 93 Oxygen Delivery Method Oxygen Flow Rate 06/03/23 03:14 06/03/23 03:14 06/03/23 03:15 Temperature Pulse Rate 108 H Respiratory Rate 17 Blood Pressure 81/45 L 86/47 L Pulse Oximetry 91 Oxygen Delivery Method Oxygen Flow Rate 06/03/23 03:15 06/03/23 03:20 06/03/23 03:20 Temperature Pulse Rate 103 H 101 H Respiratory Rate 18 10 L Blood Pressure 94/55 L Pulse Oximetry 93 93 Oxygen Delivery Method Room Air Oxygen Flow Rate 06/03/23 03:23 06/03/23 03:23 06/03/23 03:25 Temperature Pulse Rate 103 H 104 H Respiratory Rate 10 L 13 Blood Pressure 88/54 L Pulse Oximetry 94 97 Oxygen Delivery Method Nasal Cannula Nasal Cannula Oxygen Flow Rate 0.5 0.5 06/03/23 03:30 06/03/23 03:30 06/03/23 03:45 Temperature Pulse Rate 105 H Respiratory Rate 17 Blood Pressure 100/55 L 108/65 Pulse Oximetry 97 Oxygen Delivery Method Oxygen Flow Rate 06/03/23 03:45 06/03/23 04:04 06/03/23 04:15 Temperature Pulse Rate 100 H 126 H 126 H Respiratory Rate 18 26 H 32 H Blood Pressure Pulse Oximetry 97 97 Oxygen Delivery Method Nasal Cannula Nasal Cannula Oxygen Flow Rate 0.5 0.5 06/03/23 04:30 06/03/23 04:30 06/03/23 04:45 Temperature Pulse Rate 101 H 100 H Respiratory Rate 10 L 9 L Blood Pressure 107/50 L Pulse Oximetry 97 97 Oxygen Delivery Method Nasal Cannula Nasal Cannula Oxygen Flow Rate 0.5 0.5 MDM - Fall Lab Data 06/03/23 02:47 06/03/23 02:47 Labs: Lab Results 06/03/23 Range/Units 02:47 WBC 8.3 (4.5-11.0) X10^3/uL RBC 3.75 L (4.5-5.9) X10^6/uL Hgb 11.7 L (13.5-17.5) g/dL Hct 34.4 L (41-53) % MCV 91.7 (80-100) fL MCH 31.1 (26-34) PG MCHC 33.9 (30-36) % RDW 14.1 (11.6-14.8) % Plt Count 119 L (150-400) X10^3/uL Neut % (Auto) Not Reportable Lymph % (Auto) Not Reportable [place] % (Auto) Not Reportable Eos % (Auto) Not Reportable Baso % (Auto) Not Reportable Lymph # (Auto) Not Reportable [place] # (Auto) Not Reportable Baso # (Auto) Not Reportable Total Counted 100 Seg Neutrophils % 82.0 H (38-70) % Band Neutrophils % 2.0 L (3-7) % Lymphocytes % (Manual) 8.0 L (25-45) % Monocytes % (Manual) 7.0 (2-11) % Eosinophils % (Manual) 1.0 L (2-4) % Neutrophils # (Manual) 6972 H (8690-7739) /uL Platelet Estimate Decreased on smear RBC Morphology See below [place] Cells 1+ H PT 17.8 H (9.4-12.5) SECONDS INR 1.5 H (0.9-1.3) APTT 58 H (25.1-36.5) SECONDS Sodium 137 (137-145) mmol/L Potassium 4.3 (3.4-5.1) mmol/L Chloride 105 (98-107) mmol/L Carbon Dioxide 25 (22-32) mmol/L BUN 79 H (9-20) mg/dL Creatinine 3.81 H (0.66-1.25) mg/dL Estimated GFR 16 L (>60) mL/min BUN/Creatinine Ratio 20.7 (6-22) Glucose 98 (80-110) mg/dL Calcium 10.2 (8.4-10.2) mg/dL Total Bilirubin 1.0 (0.2-1.3) mg/dL AST 45 (17-59) IU/L ALT 27 (<50) IU/L Alkaline Phosphatase 119 (38-126) U/L Total Creatine Kinase 326 H (55-170) U/L Troponin I 0.013 (0.01-0.034) ng/mL NT-Pro-B Natriuret Pep 92523 H (<125) pg/mL Total Protein 6.6 (6.3-8.2) g/dL Albumin 3.4 L (3.5-5.0) g/dL Globulin 3.2 (1.7-4.1) g/dL Albumin/Globulin Ratio 1.1 (1.0-2.8) Lipase 34 (23-300) U/L Imaging Data CT scan - head: Radiologist's Impression: Generalized involutional changes noted no acute abnormality identified Chest x-ray: Radiologist's Impression: No acute cardiopulmonary abnormality is identified ECG Data Interpretation: EKG 1. Atrial fibrillation [address] changes no prior EKGs to compare EKG 2. Atrial fibrillation rate [address] elevation or changes no priors to compare MDM Narrative Medical decision making narrative: Patient 60-year-old male presents today with increasing falling and weakness. Reports that his left leg continues to give out on him. He does not remember injuring his knee but he feels like he has pain and it just gives out. He also is reporting increasing shortness of breath over the last handful days. He denies any fever chills. He is immediately did to be in AFib with RVR. He is on Pradaxa and has a pacemaker but no rate controlling medications. Blood work has been reviewed creatinine 3.81 previously 1.53 in September of 2022, BUN today is 79 previously 26 he would electrolytes are within normal limits BNP 67799 troponin 0.013, no leukocytosis or anemia CT head does not show any intracranial abnormality, ultrasound, does not show any DVT, chest x-ray no acute cardiopulmonary process Patient is found to be AFib with RVR he has a history of atrial fibrillation unknown if he lives in AFib or not. Patient was given 10 mg of Cardizem according to previous echo he has a EF of55- 60%. He did not tolerate the Cardizem blood pressure decreased into the 70s. Remains awake and alert. Blood pressure ultimately improved as well as heart rate. He is noted to be with FERNANDA and a creatinine of 3.5 previously normal. Probable congestive heart failure secondary to uncontrolled atrial fibrillation. Left leg is very swollen, he initially had a Vaughn bandage on, I think it may have been too tight has after reexamination the swelling has improved. DVT study was negative. Good strong pulse. Patient shows me a list of medication he actually takes metoprolol 50 mg twice a day Lasix 20 mg Pradaxa, he reports that he has been taking all his medication he has not missed any. Dr. Aguilar accepts patient Discharge Plan Departure Patient Disposition: Admitted As Inpatient Clinical Impression: FERNANDA (acute kidney injury), Atrial fibrillation with rapid ventricular response, Congestive heart failure, Falls frequently Admit Date/Time: 06/03/23 04:51 Admit Provider: Tam Aguilar
--- NOTE | 2023-06-03 02:41 | DI.RAD.S_ITS ---
PROCEDURE: XR CHEST 1V INDICATIONS: falls TECHNIQUE: One view of the chest was acquired. COMPARISON: None. FINDINGS: Surgical changes and devices: There is a cardiac pacemaker in expected position. Lungs and pleura: Lungs are clear. No pleural effusions or pneumothorax. Mediastinum: Mediastinal contours appear normal. Heart size is normal. Bones and chest wall: No suspicious bony lesions. Overlying soft tissues appear unremarkable. IMPRESSION: No acute cardiopulmonary abnormality is seen. No significant discrepancy with the lines tender radiology preliminary report. Dictated by: Juan Manuel Sullivan M.D. on 06/03/2023 at 9:30 Approved by: Juan Manuel Sullivan M.D. on 06/03/2023 at 9:36
--- NOTE | 2023-06-03 02:41 | DI.US.S_ITS ---
PROCEDURE: US PERIPH VENOUS LOW EXTREM LT INDICATIONS: swelling TECHNIQUE: Real-time imaging, as well as color and pulse Doppler interrogation, were performed of the lower extremity deep veins from the inguinal ligament to the popliteal fossa, with documentation of the visualized calf veins. COMPARISON: None. FINDINGS: The common femoral, femoral, popliteal, and the visualized calf veins are normally compressible, and free of intraluminal thrombus. Color and pulse Doppler demonstrate normal phasic intraluminal flow. There is normal augmentation response to distal compression maneuver. Subcutaneous soft tissue edema without focal fluid collection. IMPRESSION: No findings of lower extremity deep venous thrombosis. Subcutaneous soft tissue edema. No significant discrepancy with the shift superintendent caustic cresylate radiology preliminary report. Dictated by: Amanuel Ribeiro M.D. on 06/03/2023 at 7:09 Approved by: Amanuel Ribeiro M.D. on 06/03/2023 at 7:09
--- NOTE | 2023-06-03 02:41 | DI.CT.S_ITS ---
PROCEDURE: CT HEAD/BRAIN WO CON INDICATIONS: frequent fall on pradaxa TECHNIQUE: Noncontrast 4.5 mm thick angled axial sections acquired from the foramen magnum to the vertex, with coronal and sagittal reformats. For radiation dose reduction, the following was used: automated exposure control, adjustment of mA and/or kV according to patient size. COMPARISON: None. FINDINGS: Image quality: Diagnostic. CSF spaces: Basal cisterns are patent. No extra-axial fluid collections. The ventricles are symmetric in size and shape. Brain: No intracranial bleeds or masses. There is cerebral volume loss for age, with resultant ventricular and sulcal prominence. There are periventricular and deep white matter chronic small vessel ischemic changes. There is intracranial internal carotid artery atherosclerosis. Skull and face: Calvarium and visualized facial bones appear intact, without suspicious lesions. Sinuses: Visualized sinuses and mastoids are clear. IMPRESSION: No evidence acute intracranial process. Comment: Final report is concordant with preliminary interpretation provided by [facility]. Dictated by: Britton Gomez M.D. on 06/03/2023 at 6:15 Approved by: Britton Gomez M.D. on 06/03/2023 at 6:15
[2023-06-03 02:54] LABS: Hematocrit 34.4 % (41-53); Hemoglobin 11.7 g/dL (13.5-17.5); Mean Corpuscular HGB Conc 33.9 % (30-36); Mean Corpuscular Hemoglobin 31.1 PG (26-34); Mean Corpuscular Volume 91.7 fL (80-100); Platelet Count 119 X10^3/uL (150-400); Red Blood Cell Count 3.75 X10^6/uL (4.5-5.9); Red Cell Distribution Width 14.1 % (11.6-14.8); White Blood Cell Count 8.3 X10^3/uL (4.5-11.0)
[2023-06-03 02:55] LABS: Add Manual Diff / Slide Review YES
[2023-06-03] MEDS: dilTIAZem 5 MG/ML SDV 10 MG IV (02:56)
[2023-06-03 03:01] LABS: INR 1.5 (0.9-1.3); Prothrombin Time 17.8 SECONDS (9.4-12.5)
[2023-06-03 03:03] LABS: PTT Partial Thromboplastin Tim 58 SECONDS (25.1-36.5)
[2023-06-03 03:05] LABS: Alanine Aminotransferase 27 IU/L (<50); Albumin 3.4 g/dL (3.5-5.0); Albumin Globulin Ratio 1.1 (1.0-2.8); Alkaline Phosphatase 119 U/L (38-126); Aspartate Aminotransferase 45 IU/L (17-59); BUN Creatinine Ratio 20.7 (6-22); Blood Urea Nitrogen 79 mg/dL (9-20); Calcium 10.2 mg/dL (8.4-10.2); Carbon Dioxide 25 mmol/L (22-32); Chloride 105 mmol/L (98-107); Creatine Kinase 326 U/L (55-170); Estimated Glomerular Filt Rate 16 mL/min (>60); Globulin 3.2 g/dL (1.7-4.1); Glucose 98 mg/dL (80-110); HEMOLYSIS < 15 (0-50); Lipase 34 U/L (23-300); Potassium 4.3 mmol/L (3.4-5.1); Sodium 137 mmol/L (137-145); Total Protein 6.6 g/dL (6.3-8.2)
[2023-06-03 03:10] LABS: Neutrophils Absolute Manual 6972 /uL (3000-5900); Platelet Estimate Decreased on smear; Total Cells Counted 100
[2023-06-03 03:12] LABS: Burr Cells 1+
[2023-06-03 03:16] LABS: NT-proBNP (BNP-Adult 18+) 10500 pg/mL (<125); Troponin I 0.013 ng/mL (0.01-0.034)
[2023-06-03] MEDS: SODIUM CHLORIDE 0.9% 1,000 ML 1000 ML IV ×2 (03:24→16:32)
[2023-06-03] MEDS: FUROSEMIDE 40 MG/4 ML VIAL IV (04:26)
[2023-06-03] MEDS: METOPROLOL ER 50 MG TABLET PO (04:59)
--- NOTE | 2023-06-03 05:13 | DI.ECHO.S_ITS ---
[place] [facility]---------+ [facility] +---------+ : : [address] : : : : [id number] : : : : Phone: [phone] Echocardiogram Report + + :Name: OUSMANE CARD Study Date: 06/03/2023 Height: 69 in : :[facility] ReadingLocation: Weight: 272 lb : : Gender: Male BSA: 2.4 m2 : :: 1955 Age: 68 yrs BP: 106/57 mmHg: :Reason For Study: FALL : :Ordering Physician: IAN, : :DAVID Performed By: Jayy Lawson : :Referring: DAVID SOSA : + + Interpretation Summary Atrial fibrillation with controlled ventricular response and with wide QRS complexes. Normal LV size and wall thickness.. Normal wall motion LV systolic function. Ejection fraction 60-65%. Severe left atrial enlargement; mild right atrial enlargement and mild RV enlargement. Aortic valve is trileaflet structure with mild associated aortic stenosis. Peak velocity is 2.9 m/s and mean gradient of 17 mmHg. There is moderate central tricuspid regurgitation in the setting of a pacing lead traversing the tricuspid valve. Estimated PA systolic pressure is 50 mm Hg assuming RA pressure of 15 mm Hg. Compared to prior study November 16, 2022, aortic stenosis is worse. Peak velocity ielana from 2.4 m/s to 2.9 m/s. Mean gradient ileana from 11 to 17 mmHg. PA systolic pressure ileana from 39mmHg to 50 mmHg. Procedure: A two-dimensional transthoracic echocardiogram with color flow and Doppler was performed. The study quality was technically adequate. Comparison is made with the echocardiogram of 11/16/2022. The patient was in atrial fibrillation with heart rates between 70-101 bpm during the exam. Left Ventricle: Left ventricular wall thickness is mildly increased. The left ventricle is normal in size. The ejection fraction is estimated to be 60- 65%. Right Ventricle: The right ventricle is mildly dilated. Right ventricular systolic function is borderline reduced. Atria: The left atrium is severely dilated. The right atrium is mildly dilated. The interatrial septum grossly appears intact with no obvious evidence for an atrial septal defect. Mitral Valve: The mitral valve is normal in structure and function. There is no mitral valve stenosis. There is mild mitral regurgitation. Aortic Valve: The aortic valve is trileaflet. There is mild to moderate aortic stenosis. The peak aortic velocity is 2.92 m/sec. The aortic valve mean gradient is 17.0 mmHg. There is mild aortic regurgitation. Tricuspid Valve: The tricuspid valve is normal in structure and function. There is no tricuspid stenosis. There is moderate tricuspid regurgitation. The right ventricular systolic pressure is estimated to be at least 50 mmHg based on an estimated right atrial pressure of 15 mm Hg. Pulmonic Valve: The pulmonic valve is normal in structure and function. There is no pulmonic valvular stenosis. There is no pulmonic valvular regurgitation. Great Vessels: The aortic root is normal size. The ascending aorta is mildly enlarged. The IVC is dilated (diameter is greater than 2.1 cm) and it collapses less than 50% with a sniff. This suggests a high right atrial pressure of 15 mm Hg. Pericardium/ Pleura There is no pericardial effusion. There is no pleural effusion. MMode/2D Measurements & Calculations LVIDd: 4.4 cm LVOT diam: 2.0 cm LVIDs: 3.1 cm Ao root diam: 3.4 cm FS: 29.5 % asc Aorta Diam: 3.8 cm IVSd: 1.2 cm Ao Arch Diam (Prox Trans): 3.3 cm LVPWd: 1.3 cm LV estrada. diameter/BSA (cm/m^2): 1.9 LV sys. diameter/BSA (cm/m^2): 1.3 LA A2 area: 31.8 cm2 RA long axis: 5.8 cm LA A4 area: 30.6 cm2 RA area: 22.2 cm2 LA length (vol): 7.2 cm RA vol: 72.7 ml LA vol: 114.3 ml RA : 30.9 ml/m2 LA vol index: 48.6 ml/m2 IVC diam: 2.9 cm RVD1 (basal): 4.8 cm RVD2 (mid): 4.0 cm TAPSE: 1.7 cm Doppler Measurements & Calculations Ao V2 max: 292.5 cm/sec LVOT Max Michael: 110.2 cm/sec Ao V2 mean: 190.1 cm/sec LV V1 max P.9 mmHg Ao max P.2 mmHg LV V1 VTI: 23.0 cm Ao mean P.0 mmHg JAN(I,D): 1.4 cm2 Ao V2 VTI: 52.8 cm JAN(V,D): 1.2 cm2 sev ratio: 0.43 JAN indexed to BSA (cm^2/m^2): 0.60 MV E max michael: 86.6 cm/sec TR max michael: 296.0 cm/sec MV A max michael: 28.2 cm/sec TR max P.1 mmHg MV E/A: 3.1 PA V2 max: 111.8 cm/sec Med Peak E' Michael: 7.6 cm/sec PA V2 mean: 73.2 cm/sec E/E' med: 11.3 PA mean P.5 mmHg Lat Peak E' Michael: 8.6 cm/sec PA pr(Accel): 34.5 mmHg E/E' lat: 10.0 E/e' average: 10.7 MV dec time: 0.21 sec SV(LVOT): 74.3 ml Electronically signed by: Eufemia Pardo M.D. on Reading Physician:06/03/2023 12:37 PM
--- NOTE | 2023-06-03 05:14 | DI.US.S_ITS ---
PROCEDURE: US RENAL COMPLETE INDICATIONS: FERNANDA TECHNIQUE: Real-time scanning was performed of the kidneys and bladder, with image documentation. COMPARISON: None. FINDINGS: Kidneys: Left kidney is poorly visualized. No definite hydronephrosis is visualized. Right kidney measures 10.5 centimeters, without cortical thinning. No hydronephrosis. Bladder: Decompressed. Miscellaneous: No free pelvic fluid. IMPRESSION: No hydronephrosis. Dictated by: Eriberto Lombardi M.D. on 06/03/2023 at 9:16 Approved by: Eriberto Lombardi M.D. on 06/03/2023 at 9:17
[2023-06-03 06:10] LABS: Add Manual Diff / Slide Review NO; Basophils Absolute Auto 0 /uL (0-100); Basophils Percent Auto 0.3 % (0-2); Eosinophils Absolute Auto 0 /uL (0-450); Eosinophils Percent Auto 0.2 % (2-4); Hematocrit 32.9 % (41-53); Hemoglobin 11.1 g/dL (13.5-17.5); Lymphocytes Absolute Auto 400 /uL (1100-4500); Lymphocytes Percent Auto 5.4 % (25-40); Mean Corpuscular HGB Conc 33.8 % (30-36); Mean Corpuscular Volume 91.9 fL (80-100); Monocytes Absolute Auto 900 /uL (0-900); Monocytes Percent Auto 11.5 % (3-14); Neutrophils Absolute Auto 6700 /uL (1500-7000); Neutrophils Percent Auto 82.6 % (50-75); Platelet Count 124 X10^3/uL (150-400); Red Blood Cell Count 3.58 X10^6/uL (4.5-5.9); Red Cell Distribution Width 14.5 % (11.6-14.8); White Blood Cell Count 8.1 X10^3/uL (4.5-11.0)
[2023-06-03 06:21] LABS: Appearance Urine UA CLOUDY; Bilirubin Urine UA NEGATIVE (NEGATIVE); Color Urine UA YELLOW; Glucose Urine UA NEGATIVE (Negative); Ketones Urine UA TRACE (NEGATIVE); Leukocyte Esterase Urine UA 1+ (NEGATIVE); Nitrite Urine UA NEGATIVE (Negative); Occult Blood Urine UA TRACE-INTACT (Negative); Protein Urine UA TRACE (Negative); Urobilinogen Urine UA 0.2 E.U./dL (0.2)
[2023-06-03 06:30] LABS: Bacteria Urine Many (>30); Culture Indicated Urine Specimen Cultured; RBC Urine None Seen (0-5/HPF); Squamous Epithelial Cell Urine None Seen (0-5/HPF); Urine Volume 10mL (spun); WBC Urine 1-5/HPF (0-5/HPF)
[2023-06-03 06:32] LABS: Magnesium 3.6 mg/dL (1.6-2.3)
--- NOTE | 2023-06-03 06:35 | P.HP_ITS ---
History of Present Illness History of Present Illness Chief complaint: fall Narrative: 68 years old male with history of atrial fibrillation on Pradaxa, hypertension, hyperlipidemia, COPD, GERD, BPH presented to the ER with multiple falls in the last several days. He was seen in the ED on May 28 after ground-level fall and left knee pain. Initial workup including x-ray was negative and the patient was sent home on oxycodone. Since then he was following at least 5 times due to pain in the left knee. Denies any loss of consciousness or head injuries. He also reports some shortness of breath and gained around 8 pounds in the last week. He also reports increased swelling of his legs. Denies any fever, chest pain, palpitations, nausea, vomiting, abdominal pain, diarrhea or dysuria. In the ER he was found to have A-fib with RVR and was given diltiazem 10 mg IV, albuterol nebulizer, metoprolol 50 mg p.o. fluid bolus 1 L and Lasix 40 mg IV. Laboratory shows WBC 8.1, H&H 11.1/32.9, platelets 124, INR 1.5, sodium 137, potassium 4.3, BUN 79, creatinine 3.81, calcium 10.2, BNP 10,500, lipase 34, UA shows leukoesterase 1+, WBC 1?5, bacteria. Vascular ultrasound was negative for DVT. Head CT negative. Chest x-ray preliminary negative. EKG shows atrial fibrillation of 123. 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) Left inguinal hernia Chronic kidney disease (CKD) stage G3a/A1, moderately decreased glomerular filtration rate (GFR) between 45-59 mL/min/1.73 square meter and albuminuria creatinine ratio less than 30 mg/g Atrial fibrillation Surgical History H/O left inguinal hernia repair History of cholecystectomy H/O gastric bypass Family History Family/Other Loud snoring Dementia Father Loud snoring Obesity Hypertension Heart disease Mother Loud snoring Obesity Hypertension Depression Anxiety Family/Other Hypertension Depression Social History household members: spouse Smoking Status: Never smoker alcohol intake: never Meds Home Medications and Allergies Home Medications Medication Instructions Recorded Confirmed Type fluticasone propionate 50 1 spray intranasal BIDP PRN Nasal 03/12/06 01/31/23 History mcg/actuation nasal Congestion ##0 spray,suspension (Flonase Allergy Relief) albuterol sulfate 90 mcg/actuation 2 puff INH PRN PRN Shortness Of 10/12/16 01/31/23 History aerosol inhaler (Ventolin HFA) Breath ##0 cetirizine 10 mg tablet 10 mg PO QPM ##0 10/12/16 01/31/23 History finasteride 5 mg tablet 5 mg PO QDAY ##0 10/12/16 01/31/23 History furosemide 20 mg tablet 20 mg PO QDAY PRN Water retention 10/12/16 01/31/23 History ##0 hydrocodone 10 mg-acetaminophen 1 tab PO Q6H ##0 10/12/16 01/31/23 History 325 mg tablet ([place]) losartan 25 mg tablet 25 mg PO QDAY ##0 10/12/16 01/31/23 History multivitamin (Multiple Vitamins 1 tab PO QPM ##0 10/12/16 01/31/23 History tablet) pantoprazole 40 mg tablet,delayed 40 mg PO QDAY ##0 10/12/16 01/31/23 History release tamsulosin 0.4 mg capsule (Flomax) 0.4 mg PO BID ##0 10/12/16 01/31/23 History metoprolol succinate 50 mg 50 mg PO DAILY 03/19/20 01/31/23 History tablet,extended release 24 hr lidocaine 5 % topical patch 1 patch topical DAILY PRN pain #30 07/09/21 01/31/23 Rx (Lidoderm) ea nitroglycerin 0.4 mg sublingual 0.4 mg sublingual Q5M PRN 12/24/21 01/31/23 History tablet doxycycline hyclate 100 mg capsule 100 mg PO BID #10 caps 10/09/22 01/31/23 Rx atorvastatin 10 mg tablet 10 mg PO DAILY 01/31/23 01/31/23 History dabigatran etexilate 150 mg capsule mg PO 01/31/23 01/31/23 History oxycodone-acetaminophen 10 mg-325 1 tab PO 4XD PRN 01/31/23 01/31/23 History mg tablet Allergies Allergy/AdvReac Type Severity Reaction Status Date / Time tramadol Allergy Intermediate shakey Verified 01/31/23 10:44 NSAIDS (Non-Steroidal AdvReac Intermediate pt is not Verified 01/31/23 10:44 Anti-Inflamma supposed [NSAIDS (NON-STEROIDAL to take ANTI-INFLAMMA] them Review of Systems Review of Systems ROS: Yes All systems reviewed with the patient and are negative except as otherwise documented Constitutional Constitutional: Reports as per HPI and Reports system reviewed and no additional complaints, except as documented Eyes Eyes: Reports as per HPI and Reports system reviewed and no additional complaints, except as documented ENT Ears, Nose, Mouth, and Throat: Yes as per HPI and Yes system reviewed and no additional complaints, except as documented Cardiovascular Cardiovascular: Reports system reviewed and no additional complaints, except as documented Respiratory Respiratory: Reports system reviewed and no additional complaints, except as documented Gastrointestinal Gastrointestinal: Reports system reviewed and no additional complaints, except as documented Genitourinary Genitourinary: Reports system reviewed and no additional complaints, except as documented Musculoskeletal Musculoskeletal: Reports system reviewed and no additional complaints, except as documented, Reports abnormal gait and Reports numbness Neurologic Neurologic: Reports system reviewed and no additional complaints, except as documented, Reports abnormal gait, Reports confusion and Reports numbness Psychiatric Psychiatric: Reports system reviewed and no additional complaints, except as documented and Reports confusion Exam Vital Signs (past 8 hours): - 06/03/23 02:42 06/03/23 02:42 06/03/23 02:51 Temperature 97.8 F Pulse Rate 176 H 138 H Respiratory Rate 11 L 22 Blood Pressure 137/61 137/61 Pulse Oximetry 95 97 Oxygen Delivery Method Room Air Oxygen Flow Rate 06/03/23 02:56 06/03/23 03:00 06/03/23 03:01 Temperature Pulse Rate 138 H 102 H 102 H Respiratory Rate 16 15 Blood Pressure 137/61 Pulse Oximetry 93 93 Oxygen Delivery Method Oxygen Flow Rate 06/03/23 03:01 06/03/23 03:02 06/03/23 03:02 Temperature Pulse Rate 109 H Respiratory Rate 21 Blood Pressure 71/44 L 95/52 L Pulse Oximetry 93 Oxygen Delivery Method Oxygen Flow Rate 06/03/23 03:05 06/03/23 03:05 06/03/23 03:10 Temperature Pulse Rate 104 H 100 H Respiratory Rate 13 9 L Blood Pressure 77/46 L Pulse Oximetry 92 91 Oxygen Delivery Method Oxygen Flow Rate 06/03/23 03:10 06/03/23 03:11 06/03/23 03:11 Temperature Pulse Rate 116 H Respiratory Rate 22 Blood Pressure 74/42 L 77/49 L Pulse Oximetry 93 Oxygen Delivery Method Oxygen Flow Rate 06/03/23 03:14 06/03/23 03:14 06/03/23 03:15 Temperature Pulse Rate 108 H Respiratory Rate 17 Blood Pressure 81/45 L 86/47 L Pulse Oximetry 91 Oxygen Delivery Method Oxygen Flow Rate 06/03/23 03:15 06/03/23 03:20 06/03/23 03:20 Temperature Pulse Rate 103 H 101 H Respiratory Rate 18 10 L Blood Pressure 94/55 L Pulse Oximetry 93 93 Oxygen Delivery Method Room Air Oxygen Flow Rate 06/03/23 03:23 06/03/23 03:23 06/03/23 03:25 Temperature Pulse Rate 103 H 104 H Respiratory Rate 10 L 13 Blood Pressure 88/54 L Pulse Oximetry 94 97 Oxygen Delivery Method Nasal Cannula Nasal Cannula Oxygen Flow Rate 0.5 0.5 06/03/23 03:30 06/03/23 03:30 06/03/23 03:45 Temperature Pulse Rate 105 H Respiratory Rate 17 Blood Pressure 100/55 L 108/65 Pulse Oximetry 97 Oxygen Delivery Method Oxygen Flow Rate 06/03/23 03:45 06/03/23 04:04 06/03/23 04:15 Temperature Pulse Rate 100 H 126 H 126 H Respiratory Rate 18 26 H 32 H Blood Pressure Pulse Oximetry 97 97 Oxygen Delivery Method Nasal Cannula Nasal Cannula Oxygen Flow Rate 0.5 0.5 06/03/23 04:30 06/03/23 04:30 06/03/23 04:45 Temperature Pulse Rate 101 H 100 H Respiratory Rate 10 L 9 L Blood Pressure 107/50 L Pulse Oximetry 97 97 Oxygen Delivery Method Nasal Cannula Nasal Cannula Oxygen Flow Rate 0.5 0.5 06/03/23 04:59 06/03/23 05:25 06/03/23 05:26 Temperature Pulse Rate 98 H 96 H Respiratory Rate 16 Blood Pressure 107/50 L 94/52 L Pulse Oximetry 97 Oxygen Delivery Method Room Air Oxygen Flow Rate 06/03/23 05:26 06/03/23 05:30 Temperature 97.1 F L Pulse Rate 91 H Respiratory Rate 16 Blood Pressure 124/41 L Pulse Oximetry 99 99 Oxygen Delivery Method Oxygen Flow Rate 0 Oxygen Delivery Method Room Air Oxygen Flow Rate 0 Const General: cooperative, comfortable and well developed Orientation: alert and oriented x3 HENNC Head: normal to inspection, normocephalic and atraumatic Face and sinus: normal facial exam Mouth: oral mucosae normal and moist mucous membranes Throat: posterior oropharynx normal Eyes General: appearance normal, both eyes and all related structures Pupils: PERRL EOM: EOM intact bilaterally Neck Neck: normal visual inspection and full ROM Chest Chest: normal inspection of the chest Resp Effort & Inspection: normal respiratory effort and able to speak in complete sentences Auscultation: clear to auscultation bilaterally Cardio Palpation: normal PMI Rate: regular rate Rhythm: regular rhythm Heart Sounds: S1 normal and S2 normal GI Inspection: normal to inspection Palpation: soft and no hepatosplenomegaly Auscultation: normal bowel sounds Skin General: no rashes or lesions noted Lesions: no lesions Rashes: no rashes Trauma: no lacerations or abrasions Neuro General: patient alert, patient awake, patient oriented x3 and no focal motor deficits Cranial Nerves: CN's II-XI intact bilaterally Cognition: normal cognition Speech: speech normal Gait: normal gait Motor: muscle tone normal throughout Sensory Exam: no sensory deficits noted Extrem General: full ROM and no calf tenderness Psych Appearance: grossly normal Mental Status: mental status grossly normal Speech and Movement: speech and movement normal Objective Labs 06/03/23 05:56 06/03/23 02:47 Labs: Laboratory Results - last 24 hr 06/03/23 06/03/23 06/03/23 02:47 05:45 05:56 WBC 8.3 8.1 RBC 3.75 L 3.58 L Hgb 11.7 L 11.1 L Hct 34.4 L 32.9 L MCV 91.7 91.9 MCH 31.1 31.0 MCHC 33.9 33.8 RDW 14.1 14.5 Plt Count 119 L 124 L Neut % (Auto) Not Reportable 82.6 H Lymph % (Auto) Not Reportable 5.4 L [place] % (Auto) Not Reportable 11.5 Eos % (Auto) Not Reportable 0.2 L Baso % (Auto) Not Reportable 0.3 Neut # (Auto) 6700 Lymph # (Auto) Not Reportable 400 L [place] # (Auto) Not Reportable 900 Eos # (Auto) 0 Baso # (Auto) Not Reportable 0 Total Counted 100 Seg Neutrophils % 82.0 H Band Neutrophils % 2.0 L Lymphocytes % (Manual) 8.0 L Monocytes % (Manual) 7.0 Eosinophils % (Manual) 1.0 L Neutrophils # (Manual) 6972 H Platelet Estimate Decreased on smear RBC Morphology See below [place] Cells 1+ H PT 17.8 H INR 1.5 H APTT 58 H Sodium 137 Potassium 4.3 Chloride 105 Carbon Dioxide 25 BUN 79 H Creatinine 3.81 H Estimated GFR 16 L BUN/Creatinine Ratio 20.7 Glucose 98 Calcium 10.2 Total Bilirubin 1.0 AST 45 ALT 27 Alkaline Phosphatase 119 Total Creatine Kinase 326 H Troponin I 0.013 NT-Pro-B Natriuret Pep 57361 H Total Protein 6.6 Albumin 3.4 L Globulin 3.2 Albumin/Globulin Ratio 1.1 Lipase 34 Urine Color Yellow Urine Appearance Cloudy Urine pH 5.0 Ur Specific [place] 1.020 Urine Protein Trace H Urine Glucose (UA) Negative Urine Ketones Trace H Urine Occult Blood Trace-intact Urine Nitrate Negative Urine Bilirubin Negative Urine Urobilinogen 0.2 Ur Leukocyte Esterase 1+ H Urine RBC None seen Urine WBC 1-5/hpf Ur Squamous Epith Cells None seen Urine Bacteria Many (>30) H Ur Culture Indicated? Specimen cultured Vol Urine Centrifuged 10ml (spun) Assessment & Plan Assessment & Plan narrative: Acute on chronic diastolic heart failure: Quite significant change of BNP. ]-Monitor I and O; daily standing weight; -diuresis with Lasix as BP can tolerate. -check BNP and repeat in 48 hours; low sodium diet -Monitor effectiveness of diuresis. Monitor renal function. -keep potassium> 4 and magnesium> 2 -Telemetry monitoring -EKG, serial troponins, chest x-ray, Echo -Resume BB when appropriate -Supplemental O2 as needed, goal SpO2> 90% Acute kidney injury. Presented with creatinine 3.81, baseline between 1.1?1.5. Most likely pre-renal. -will send urine studies for UA, electrolytes and check FENA. -hold ACEI -monitor UOP. -daily BMP -Renal U/S -Avoid any nephrotoxic agents, including NSAIDs -Dose all medications according pt's current eGFR Frequent falls. PT and OT evaluation. Fall precaution. Pain medications as needed A-fib with RVR. The patient was given diltiazem 10 mg IV in the ED. Restart metoprolol, Pradaxa. Telemetry Hyperlipidemia. Restart Lipitor and check lipids GERD. Restart pantoprazole BPH. Restart Flomax Time Spent With Patient Time with patient: 50 to 69 minutes with 50% spent counseling/coordinating care Quality VTE Deep Vein Thrombosis/Pulmonary Embolism Present on Admission: No MIPS - Admit I confirm the patient?s Advance Care Plan is present, Code status is documented, Surrogate decision maker is in patient?s record [If Yes, STOP here]: Yes MIPS - Meds 'Current medications' to include all prescriptions, [id number] products, herbals, cannabis/cannabidiol products, and vitamin/mineral/dietary (nutritional) supplements. I have utilized all available resources to obtain, update, or review the patient?s current medications. [If Yes, STOP here]: Yes
[2023-06-03 07:23] LABS: Cholesterol 72 mg/dL (140-199); HDL Cholesterol 12 mg/dL (40-60); LDL Cholesterol Calculated 33 mg/dL (<100); Triglycerides 137 mg/dL (35-150)
--- NOTE | 2023-06-03 09:26 | PM.HP.1 ---
History of Present Illness History of Present Illness Chief complaint: fall Narrative: From overnight provider: 68 years old male with history of atrial fibrillation on Pradaxa, hypertension, hyperlipidemia, COPD, GERD, BPH presented to the ER with multiple falls in the last several days. He was seen in the ED on May 28 after ground-level fall and left knee pain. Initial workup including x-ray was negative and the patient was sent home on oxycodone. Since then he was following at least 5 times due to pain in the left knee. Denies any loss of consciousness or head injuries. He also reports some shortness of breath and gained around 8 pounds in the last week. He also reports increased swelling of his legs. Denies any fever, chest pain, palpitations, nausea, vomiting, abdominal pain, diarrhea or dysuria. In the ER he was found to have A-fib with RVR and was given diltiazem 10 mg IV, albuterol nebulizer, metoprolol 50 mg p.o. fluid bolus 1 L and Lasix 40 mg IV. Laboratory shows WBC 8.1, H&H 11.1/32.9, platelets 124, INR 1.5, sodium 137, potassium 4.3, BUN 79, creatinine 3.81, calcium 10.2, BNP 10,500, lipase 34, UA shows leukoesterase 1+, WBC 1?5, bacteria. Vascular ultrasound was negative for DVT. Head CT negative. Chest x-ray preliminary negative. EKG shows atrial fibrillation of 123. Patient tells me he has been taking ibuprofen several times per day for a few weeks due to his L knee pain. He then noticed he was urinating less despite taking lasix the past week and his weight began to climb. He previously has NSAID-induced FERNANDA in the past from ibuprofen but his kidney function recovered. He also notes dysphagia with regurgitation of food the past week. This has been an ongoing problem and he has seen [facility] and [facility] in the past. His last EGD was a few years ago before the pandemic. He noticed chicken especially gets stuck at the bottom of his esophagus. 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) Left inguinal hernia Chronic kidney disease (CKD) stage G3a/A1, moderately decreased glomerular filtration rate (GFR) between 45-59 mL/min/1.73 square meter and albuminuria creatinine ratio less than 30 mg/g Atrial fibrillation Surgical History H/O left inguinal hernia repair History of cholecystectomy H/O gastric bypass Family History Family/Other Loud snoring Dementia Father Loud snoring Obesity Hypertension Heart disease Mother Loud snoring Obesity Hypertension Depression Anxiety Family/Other Hypertension Depression Social History household members: spouse Smoking Status: Never smoker alcohol intake: never Meds Home Medications and Allergies Home Medications Medication Instructions Recorded Confirmed Type finasteride 5 mg tablet 5 mg PO QDAY ##0 10/12/16 06/03/23 History furosemide 20 mg tablet 20 mg PO QDAY PRN Water retention 10/12/16 06/03/23 History ##0 losartan 25 mg tablet 25 mg PO QDAY ##0 10/12/16 06/03/23 History multivitamin (Multiple Vitamins 1 tab PO QPM ##0 10/12/16 06/03/23 History tablet) pantoprazole 40 mg tablet,delayed 40 mg PO QDAY ##0 10/12/16 06/03/23 History release tamsulosin 0.4 mg capsule (Flomax) 0.4 mg PO BID ##0 10/12/16 06/03/23 History metoprolol succinate 50 mg 50 mg PO DAILY 03/19/20 06/03/23 History tablet,extended release 24 hr nitroglycerin 0.4 mg sublingual 0.4 mg sublingual Q5M PRN Chest 12/24/21 06/03/23 History tablet Pain atorvastatin 10 mg tablet 10 mg PO DAILY 01/31/23 06/03/23 History dabigatran etexilate 150 mg capsule 150 mg PO DAILY 01/31/23 06/03/23 History oxycodone-acetaminophen 10 mg-325 1 tab PO 4XD PRN Pain (Scale Score 01/31/23 06/03/23 History mg tablet 4-6) Allergies Allergy/AdvReac Type Severity Reaction Status Date / Time tramadol Allergy Intermediate shakey Verified 01/31/23 10:44 NSAIDS (Non-Steroidal AdvReac Intermediate pt is not Verified 01/31/23 10:44 Anti-Inflamma supposed [NSAIDS (NON-STEROIDAL to take ANTI-INFLAMMA] them Review of Systems Review of Systems Narrative: All other systems reviewed with the patient and are negative unless otherwise stated. Exam Vital Signs (past 8 hours): - 06/03/23 02:42 06/03/23 02:42 06/03/23 02:51 Temperature 97.8 F Pulse Rate 176 H 138 H Respiratory Rate 11 L 22 Blood Pressure 137/61 137/61 Pulse Oximetry 95 97 Oxygen Delivery Method Room Air Oxygen Flow Rate 06/03/23 02:56 06/03/23 03:00 06/03/23 03:01 Temperature Pulse Rate 138 H 102 H 102 H Respiratory Rate 16 15 Blood Pressure 137/61 Pulse Oximetry 93 93 Oxygen Delivery Method Oxygen Flow Rate 06/03/23 03:01 06/03/23 03:02 06/03/23 03:02 Temperature Pulse Rate 109 H Respiratory Rate 21 Blood Pressure 71/44 L 95/52 L Pulse Oximetry 93 Oxygen Delivery Method Oxygen Flow Rate 06/03/23 03:05 06/03/23 03:05 06/03/23 03:10 Temperature Pulse Rate 104 H 100 H Respiratory Rate 13 9 L Blood Pressure 77/46 L Pulse Oximetry 92 91 Oxygen Delivery Method Oxygen Flow Rate 06/03/23 03:10 06/03/23 03:11 06/03/23 03:11 Temperature Pulse Rate 116 H Respiratory Rate 22 Blood Pressure 74/42 L 77/49 L Pulse Oximetry 93 Oxygen Delivery Method Oxygen Flow Rate 06/03/23 03:14 06/03/23 03:14 06/03/23 03:15 Temperature Pulse Rate 108 H Respiratory Rate 17 Blood Pressure 81/45 L 86/47 L Pulse Oximetry 91 Oxygen Delivery Method Oxygen Flow Rate 06/03/23 03:15 06/03/23 03:20 06/03/23 03:20 Temperature Pulse Rate 103 H 101 H Respiratory Rate 18 10 L Blood Pressure 94/55 L Pulse Oximetry 93 93 Oxygen Delivery Method Room Air Oxygen Flow Rate 06/03/23 03:23 06/03/23 03:23 06/03/23 03:25 Temperature Pulse Rate 103 H 104 H Respiratory Rate 10 L 13 Blood Pressure 88/54 L Pulse Oximetry 94 97 Oxygen Delivery Method Nasal Cannula Nasal Cannula Oxygen Flow Rate 0.5 0.5 06/03/23 03:30 06/03/23 03:30 06/03/23 03:45 Temperature Pulse Rate 105 H Respiratory Rate 17 Blood Pressure 100/55 L 108/65 Pulse Oximetry 97 Oxygen Delivery Method Oxygen Flow Rate 06/03/23 03:45 06/03/23 04:04 06/03/23 04:15 Temperature Pulse Rate 100 H 126 H 126 H Respiratory Rate 18 26 H 32 H Blood Pressure Pulse Oximetry 97 97 Oxygen Delivery Method Nasal Cannula Nasal Cannula Oxygen Flow Rate 0.5 0.5 06/03/23 04:30 06/03/23 04:30 06/03/23 04:45 Temperature Pulse Rate 101 H 100 H Respiratory Rate 10 L 9 L Blood Pressure 107/50 L Pulse Oximetry 97 97 Oxygen Delivery Method Nasal Cannula Nasal Cannula Oxygen Flow Rate 0.5 0.5 06/03/23 04:59 06/03/23 05:25 06/03/23 05:26 Temperature Pulse Rate 98 H 96 H Respiratory Rate 16 Blood Pressure 107/50 L 94/52 L Pulse Oximetry 97 Oxygen Delivery Method Room Air Oxygen Flow Rate 06/03/23 05:26 06/03/23 05:30 06/03/23 05:30 Temperature 97.1 F L Pulse Rate 91 H 91 H Respiratory Rate 16 Blood Pressure 124/41 L 124/41 L Pulse Oximetry 99 99 Oxygen Delivery Method Oxygen Flow Rate 0 06/03/23 08:00 Temperature 97.0 F L Pulse Rate 97 H Respiratory Rate 16 Blood Pressure 106/57 L Pulse Oximetry 93 Oxygen Delivery Method Oxygen Flow Rate 0 Oxygen Delivery Method Room Air Oxygen Flow Rate 0 Narrative Exam Narrative: GEN: no acute distress, sleepy HEENT: moist mucous membranes, PERRL NECK: trachea midline, no JVD CV: regular rate and rhythm, no murmurs PULM: rales present ABD: soft, nontender, nondistended, no organomegaly EXT: warm and well perfused with 2-3+ edema below knees, L knee with swelling and pain to palpation NEURO: awake, alert, oriented, no focal deficits Objective Labs 06/03/23 09:45 06/03/23 09:45 Labs: Laboratory Results - last 24 hr 06/03/23 06/03/23 06/03/23 02:47 05:45 05:56 WBC 8.3 8.1 RBC 3.75 L 3.58 L Hgb 11.7 L 11.1 L Hct 34.4 L 32.9 L MCV 91.7 91.9 MCH 31.1 31.0 MCHC 33.9 33.8 RDW 14.1 14.5 Plt Count 119 L 124 L Neut % (Auto) Not Reportable 82.6 H Lymph % (Auto) Not Reportable 5.4 L [place] % (Auto) Not Reportable 11.5 Eos % (Auto) Not Reportable 0.2 L Baso % (Auto) Not Reportable 0.3 Neut # (Auto) 6700 Lymph # (Auto) Not Reportable 400 L [place] # (Auto) Not Reportable 900 Eos # (Auto) 0 Baso # (Auto) Not Reportable 0 Total Counted 100 Seg Neutrophils % 82.0 H Band Neutrophils % 2.0 L Lymphocytes % (Manual) 8.0 L Monocytes % (Manual) 7.0 Eosinophils % (Manual) 1.0 L Neutrophils # (Manual) 6972 H Platelet Estimate Decreased on smear RBC Morphology See below [place] Cells 1+ H PT 17.8 H INR 1.5 H APTT 58 H Sodium 137 Potassium 4.3 Chloride 105 Carbon Dioxide 25 BUN 79 H Creatinine 3.81 H Estimated GFR 16 L BUN/Creatinine Ratio 20.7 Glucose 98 Calcium 10.2 Magnesium 3.6 H Total Bilirubin 1.0 AST 45 ALT 27 Alkaline Phosphatase 119 Total Creatine Kinase 326 H Troponin I 0.013 NT-Pro-B Natriuret Pep 70828 H Total Protein 6.6 Albumin 3.4 L Globulin 3.2 Albumin/Globulin Ratio 1.1 Triglycerides 137 Cholesterol 72 L LDL Cholesterol, Calc 33 HDL Cholesterol 12 L Lipase 34 Urine Color Yellow Urine Appearance Cloudy Urine pH 5.0 Ur Specific [place] 1.020 Urine Protein Trace H Urine Glucose (UA) Negative Urine Ketones Trace H Urine Occult Blood Trace-intact Urine Nitrate Negative Urine Bilirubin Negative Urine Urobilinogen 0.2 Ur Leukocyte Esterase 1+ H Urine RBC None seen Urine WBC 1-5/hpf Ur Squamous Epith Cells None seen Urine Bacteria Many (>30) H Ur Culture Indicated? Specimen cultured Vol Urine Centrifuged 10ml (spun) Assessment & Plan Assessment & Plan narrative: Acute on chronic diastolic heart failure -peripheral edema, pulm edema on CXR, BNP elevated -Monitor I and O; daily standing weight -lasix 60 IV BID. -low sodium diet -Monitor effectiveness of diuresis. Monitor renal function. -keep potassium> 4 and magnesium> 2 -Telemetry monitoring -echo with EF 60-65%, worsened mild , mod TR Acute kidney injury -Presented with creatinine 3.81, baseline between 1.1?1.5. Most likely intrinsic due to frequent NSAID use. -UA bland -hold ACEI -monitor UOP. -daily BMP -Renal U/S negative -Avoid any nephrotoxic agents, including NSAIDs and counseled patient to avoid ibuprofen from now on -Dose all medications according pt's current eGFR Frequent falls due to L knee pain with effusion. -Has ortho outpatient appt on 06/[address] Garcia. Prior XR shows mod joint effusion. -Will obtain CT of L knee to look for occult fracture and possibly consult ortho while inpatient for tap. -PT and OT evaluation. Fall precaution. Pain medications as needed. Dysphagia with regurgitation -patient notes food stuck in his esophagus for the past week, has history of dysphagia -NPO at midnight for EGD with Dr. Ball on 06/03 -hold pradaxa if dilation needed A-fib with RVR now improved. -The patient was given diltiazem 10 mg IV in the ED. HR now improved to 90's. -Restarted metoprolol, held Pradaxa due to EGD. Telemetry Hyperlipidemia. Restart Lipitor and check lipids GERD. Restart pantoprazole BPH. Restart Flomax Dispo: 2-3 days to diurese, treat L knee pain, EGD for dysphagia and improve FERNANDA. May need SNF due to falls. Time Spent With Patient Time with patient: 50 to 69 minutes with 50% spent counseling/coordinating care Quality VTE Deep Vein Thrombosis/Pulmonary Embolism Present on Admission: No
[2023-06-03 09:59] LABS: Add Manual Diff / Slide Review YES; Hematocrit 29.1 % (41-53); Hemoglobin 9.8 g/dL (13.5-17.5); Mean Corpuscular HGB Conc 33.5 % (30-36); Mean Corpuscular Hemoglobin 30.9 PG (26-34); Mean Corpuscular Volume 92.1 fL (80-100); Platelet Count 103 X10^3/uL (150-400); Red Blood Cell Count 3.16 X10^6/uL (4.5-5.9); Red Cell Distribution Width 14.3 % (11.6-14.8); White Blood Cell Count 7.9 X10^3/uL (4.5-11.0)
[2023-06-03 10:11] LABS: BUN Creatinine Ratio 22.8 (6-22); Blood Urea Nitrogen 82 mg/dL (9-20); Calcium 9.6 mg/dL (8.4-10.2); Carbon Dioxide 23 mmol/L (22-32); Chloride 107 mmol/L (98-107); Estimated Glomerular Filt Rate 18 mL/min (>60); Glucose 109 mg/dL (80-110); HEMOLYSIS < 15 (0-50); Potassium 4.2 mmol/L (3.4-5.1); Sodium 136 mmol/L (137-145)
[2023-06-03 10:18] LABS: Neutrophils Absolute Manual 6557 /uL (3000-5900); Total Cells Counted 100
[2023-06-03 10:25] LABS: Anisocytosis 1+; Ovalocytes 1+
[2023-06-03 10:26] LABS: Burr Cells 2+; Dohle Bodies 1+; Schistocytes 1+; Toxic Granulation Present
--- NOTE | 2023-06-03 12:07 | CM.DANOTE ---
Initial DCP Assessment Visit Note Reviewed EMR and team rounds for pt's medical status and updates. 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 Attempted to call his for hx and discuss concerns/needs, however she did not answer the phone. Per EMR, pt lives independently with his in their own home in [place]. Payor: [employer] [facility] PCP: Dr. Natasha Carroll Pt is a 68 year-old M with a hx of Afib, hyperlipidemia, GERD, and hypertension presented to the ED with worsening L-knee pain and several falls over the last few days. He states that his knee is giving out unexpectedly when he's walking. He also states that he's been increasingly more short of breath, and has swelling in both lower extremities. ED eval resulted in new onset CHF exacerbation, FERNANDA, and Afib. Pt was admitted for further evaluation and treatment focused on diuresis, telemetry monitoring, and supplemental oxegyn. DCP will continue to follow and monitor for final d/c recommendations and needs. Discharge Planning/Care Management CM Discharge Assessment Start: 06/03/23 12:00 Freq: Status: Active Protocol: Document 06/03/23 12:00 DPL (Rec: 06/03/23 12:07 DPL [id number]) Discharge Planning Assessment Assigned Sign Designer [place] M[place] Advance Directives? No History Provided By Medical Record Expected Length of Stay 3 Has Patient been admitted in last 30 No days? Prior Living Arrangements House Household Members spouse Type of transporation used prior to Drives own vehicle admit Independent with ADL's Yes: yes, however he's had several falls recently due to his knee giving out. Caregiver for Another No Comment No anticipated home d/c needs indicated at this time. Barriers to Discharge No Discharge Plan Home Transportation Arrangement Family Additional Comment Pending PT/OT eval and recommendations. If patient plan is home with home health No : Has signed face to face form been completed? If patient plan is SNF: Has PASSR been No completed? Inpatient Status as of 06/03/23 Whiteboard Updated in Patient Room with Yes name and ext. # of Sign Designer Review Status In Process Please Provide Date Initial DC 06/03/23 Assessment Was Performed
--- NOTE | 2023-06-03 16:14 | PC.NURSE ---
Addendum entered by Kassi Hardy R.N. 06/03/23 17:12: Pt denies discomfort. B/P remainms decreased. NS bolus infusing. IV ABD infusing. Pt transfered to 226 Report given to ICU staff, Continue w/plan of care. Original Note: Pt A/O Denies discomfort. LLE presents w/ apparent cellulitis Pluses palbable Late in day pt B/P decreased. IV bous ordered and given Call light w/in reach. Bed alarm on for pt safety. Continue w/planof care.
[2023-06-03 16:28] LABS: Sodium Urine Random 48 mmol/L (30-90)
[2023-06-03] MEDS: CEFEPIME 2 GM in SODIUM CHLORIDE 0.9% 100 ML IV (16:32)
--- NOTE | 2023-06-03 17:30 | PM.CALLCOV.1 ---
Call Coverage Note Note Date of Patient Contact: 06/03/23 Time of Patient Contact: 17:31 Narrative of Care Provided: 68 y.o man with 2 weeks of left lower extremity pain admitted for acute kidney injury. CT L knee demonstrates fluid collection with small foci of air posterior to gastrocnemius. DVT study neg. Asked to evaluate for nec fasc. Afebrile, edematous left lower extremity with erythema, chronic venous insufficiency minimally tender with palpation, no open wounds. WBC 8, Na 136, Cr 3.6 Low suspicion for nec fasc based on duration of symptoms, clinical exam and laboratory studies. Will monitor, abx for cellulitis, elevate, compression. Please notify if clinical condition changes. No surgical intervention at this time.
--- NOTE | 2023-06-03 17:42 | P.CONS_ITS ---
History of Present Illness Consult details Date Patient Seen: 06/03/23 Time Patient Seen: 17:42 Chief complaint: fall Narrative: 68-year-old gentleman who was admitted today due to renal failure. History a left total knee replacement done sometime around 2015 down in [place]. This gave a history of chronic right knee arthritis which has been causing him quite a bit of an issue with locking and catching in episodes of instability. In to the left knee not use any particular injuries or accidents. As the increase in pain was seen in the emergency room on the . There was not any concern of any implant loosening or failure he was discharged home. Patient states since then he is fallen multiple times but it is across the right knee which was already causing him quite a bit of issues. That he is injured both of his knees with those falls. Due to the Multiple falls his finally insisted he go back to the emergency room. Meds Home Medications and Allergies Home Medications Medication Instructions Recorded Confirmed Type finasteride 5 mg tablet 5 mg PO QDAY ##0 10/12/16 06/03/23 History furosemide 20 mg tablet 20 mg PO QDAY PRN Water retention 10/12/16 06/03/23 History ##0 losartan 25 mg tablet 25 mg PO QDAY ##0 10/12/16 06/03/23 History multivitamin (Multiple Vitamins 1 tab PO QPM ##0 10/12/16 06/03/23 History tablet) pantoprazole 40 mg tablet,delayed 40 mg PO QDAY ##0 10/12/16 06/03/23 History release tamsulosin 0.4 mg capsule (Flomax) 0.4 mg PO BID ##0 10/12/16 06/03/23 History metoprolol succinate 50 mg 50 mg PO DAILY 03/19/20 06/03/23 History tablet,extended release 24 hr nitroglycerin 0.4 mg sublingual 0.4 mg sublingual Q5M PRN Chest 12/24/21 06/03/23 History tablet Pain atorvastatin 10 mg tablet 10 mg PO DAILY 01/31/23 06/03/23 History dabigatran etexilate 150 mg capsule 150 mg PO DAILY 01/31/23 06/03/23 History oxycodone-acetaminophen 10 mg-325 1 tab PO 4XD PRN Pain (Scale Score 01/31/23 06/03/23 History mg tablet 4-6) Allergies Allergy/AdvReac Type Severity Reaction Status Date / Time tramadol Allergy Intermediate shakey Verified 01/31/23 10:44 NSAIDS (Non-Steroidal AdvReac Intermediate pt is not Verified 01/31/23 10:44 Anti-Inflamma supposed [NSAIDS (NON-STEROIDAL to take ANTI-INFLAMMA] them Exam Vital Signs (past 8 hours): - 06/03/23 09:54 06/03/23 12:45 06/03/23 16:18 Temperature 97.8 F 97.8 F Pulse Rate 105 H 104 H Respiratory Rate 16 16 Blood Pressure 135/62 81/43 L Pulse Oximetry 92 96 94 Oxygen Delivery Method Room Air Oxygen Flow Rate 0 Oxygen Delivery Method Room Air Oxygen Flow Rate 0 Narrative Exam Narrative: On physical exam, patient is alert and oriented x3 in no apparent distress. Examination of the left knee show some mild swelling around the knee and the calf area. No sign of any infectious process to the knee joint itself. Relatively nontender to palpation over the medial and lateral joint line. Normal tracking of the patella. Knee is stable to varus and valgus stress. Some slight increased laxity with anterior and posterior drawer testing but consistent with someone who has had a knee replacement. No pain with either passive or active range of motion of the knee no pain with axial loading. Right knee also free of any significant abnormalities. Does have some crepitus with range of motion. Able to fully extend into flex to close to 90? but not able to go beyond that more due to stiffness than actual pain. Right knee is also stable to varus and valgus stress and is ligamentously stable. Signs of arthritic changes to the right knee but no sign of any significant effusion swelling or issues with the patella or patellar tendon. Objective Labs 06/03/23 09:45 06/03/23 09:45 Labs: Laboratory Results - last 24 hr 06/03/23 06/03/23 06/03/23 02:47 05:45 05:56 WBC 8.3 8.1 RBC 3.75 L 3.58 L Hgb 11.7 L 11.1 L Hct 34.4 L 32.9 L MCV 91.7 91.9 MCH 31.1 31.0 MCHC 33.9 33.8 RDW 14.1 14.5 Plt Count 119 L 124 L Neut % (Auto) Not Reportable 82.6 H Lymph % (Auto) Not Reportable 5.4 L [place] % (Auto) Not Reportable 11.5 Eos % (Auto) Not Reportable 0.2 L Baso % (Auto) Not Reportable 0.3 Neut # (Auto) 6700 Lymph # (Auto) Not Reportable 400 L [place] # (Auto) Not Reportable 900 Eos # (Auto) 0 Baso # (Auto) Not Reportable 0 Total Counted 100 Seg Neutrophils % 82.0 H Band Neutrophils % 2.0 L Lymphocytes % (Manual) 8.0 L Monocytes % (Manual) 7.0 Eosinophils % (Manual) 1.0 L Neutrophils # (Manual) 6972 H Toxic Granulation Dohle Bodies Platelet Estimate Decreased on smear RBC Morphology See below Anisocytosis Ovalocytes [place] Cells 1+ H Schistocytes PT 17.8 H INR 1.5 H APTT 58 H Sodium 137 Potassium 4.3 Chloride 105 Carbon Dioxide 25 BUN 79 H Creatinine 3.81 H Estimated GFR 16 L BUN/Creatinine Ratio 20.7 Glucose 98 Calcium 10.2 Magnesium 3.6 H Total Bilirubin 1.0 AST 45 ALT 27 Alkaline Phosphatase 119 Total Creatine Kinase 326 H Troponin I 0.013 NT-Pro-B Natriuret Pep 20431 H Total Protein 6.6 Albumin 3.4 L Globulin 3.2 Albumin/Globulin Ratio 1.1 Triglycerides 137 Cholesterol 72 L LDL Cholesterol, Calc 33 HDL Cholesterol 12 L Lipase 34 Urine Color Yellow Urine Appearance Cloudy Urine pH 5.0 Ur Specific [place] 1.020 Urine Protein Trace H Urine Glucose (UA) Negative Urine Ketones Trace H Urine Occult Blood Trace-intact Urine Nitrate Negative Urine Bilirubin Negative Urine Urobilinogen 0.2 Ur Leukocyte Esterase 1+ H Urine RBC None seen Urine WBC 1-5/hpf Ur Squamous Epith Cells None seen Urine Bacteria Many (>30) H Ur Culture Indicated? Specimen cultured Vol Urine Centrifuged 10ml (spun) Ur Random Sodium 48 06/02/ 09:45 WBC 7.9 RBC 3.16 L Hgb 9.8 L Hct 29.1 L MCV 92.1 MCH 30.9 MCHC 33.5 RDW 14.3 Plt Count 103 L Neut % (Auto) Not Reportable Lymph % (Auto) Not Reportable [place] % (Auto) Not Reportable Eos % (Auto) Not Reportable Baso % (Auto) Not Reportable Neut # (Auto) Lymph # (Auto) Not Reportable [place] # (Auto) Not Reportable Eos # (Auto) Baso # (Auto) Not Reportable Total Counted 100 Seg Neutrophils % 75.0 H Band Neutrophils % 8.0 H Lymphocytes % (Manual) 6.0 L Monocytes % (Manual) 11.0 Eosinophils % (Manual) Neutrophils # (Manual) 6557 H Toxic Granulation Present H Dohle Bodies 1+ H Platelet Estimate RBC Morphology See below Anisocytosis 1+ H Ovalocytes 1+ H [place] Cells 2+ H Schistocytes 1+ H PT INR APTT Sodium 136 L Potassium 4.2 Chloride 107 Carbon Dioxide 23 BUN 82 H Creatinine 3.59 H Estimated GFR 18 L BUN/Creatinine Ratio 22.8 H Glucose 109 Calcium 9.6 Magnesium Total Bilirubin AST ALT Alkaline Phosphatase Total Creatine Kinase Troponin I NT-Pro-B Natriuret Pep Total Protein Albumin Globulin Albumin/Globulin Ratio Triglycerides Cholesterol LDL Cholesterol, Calc HDL Cholesterol Lipase Urine Color Urine Appearance Urine pH Ur Specific [place] Urine Protein Urine Glucose (UA) Urine Ketones Urine Occult Blood Urine Nitrate Urine Bilirubin Urine Urobilinogen Ur Leukocyte Esterase Urine RBC Urine WBC Ur Squamous Epith Cells Urine Bacteria Ur Culture Indicated? 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) Left inguinal hernia Chronic kidney disease (CKD) stage G3a/A1, moderately decreased glomerular filtration rate (GFR) between 45-59 mL/min/1.73 square meter and albuminuria creatinine ratio less than 30 mg/g Atrial fibrillation Surgical History H/O left inguinal hernia repair History of cholecystectomy H/O gastric bypass Family History Family/Other Loud snoring Dementia Father Loud snoring Obesity Hypertension Heart disease Mother Loud snoring Obesity Hypertension Depression Anxiety Family/Other Hypertension Depression Social History household members: spouse Tobacco & Substance Use Smoking Status: Never smoker alcohol intake: never Assessment & Plan Assessment & Plan narrative: On today's exam I do not see anything that looks concerning for an infectious process to his left total knee arthroplasty. Patient can engage in range of motion as tolerated and can also weightbear as tolerated to the left lower extremity. Patient already had a an appointment scheduled with our knee specialist on Tuesday. If he is discharged before then he can keep that appointment if he has still an inpatient that appointment can be changed to a later date.
[2023-06-03] MEDS: CLINDAMYCIN 900 MG in SODIUM CHLORIDE 0.9% 100 ML 106 MG IV (17:53)
[2023-06-03] MEDS: LORATADINE 10 MG TABLET PO (18:05)
[2023-06-03] MEDS: VANCOMYCIN 2,000 MG/400 ML PIGGYBACK 200 MG IV (18:05)
[2023-06-03] MEDS: SODIUM CHLORIDE 0.9% 1,000 ML 125 ML IV (18:06)
--- NOTE | 2023-06-03 19:00 | PC.NURSE ---
1700 pt transported to rm [id number] from rm [id number] for hypotension and dx sepsis. 2nd IV started in LFA with 20ga angiocath. IV antibiotics in progress
[2023-06-03] MEDS: TAMSULOSIN 0.4 MG CAPSULE PO (20:38)
[2023-06-03] MEDS: HYDROCODONE/ACET 10/325 TABLET 1 TAB PO (20:39)
[2023-06-03] MEDS: DABIGATRAN 75 MG CAPSULE PO (20:39)
[2023-06-03] MEDS: DOCUSATE 100 MG CAPSULE PO (20:39)
[2023-06-04] VITALS (39 sets, daily range): BP systolic 90–134; BP diastolic 52–71; PULSE 83–148; RESP 13–34; TEMP 36.2–36.8; O2SAT 92–96
[2023-06-04] MEDS: CLINDAMYCIN 900 MG/50 ML PIGGYBACK 50 MG IV ×4 (00:29→23:43)
[2023-06-04] MEDS: HYDROCODONE/ACET 10/325 TABLET 1 TAB PO ×3 (02:08→23:44)
[2023-06-04 04:55] LABS: Add Manual Diff / Slide Review NO; Basophils Absolute Auto 100 /uL (0-100); Basophils Percent Auto 0.7 % (0-2); Eosinophils Absolute Auto 100 /uL (0-450); Eosinophils Percent Auto 1.3 % (2-4); Hematocrit 29.7 % (41-53); Lymphocytes Absolute Auto 700 /uL (1100-4500); Lymphocytes Percent Auto 8.5 % (25-40); Mean Corpuscular HGB Conc 33.6 % (30-36); Mean Corpuscular Volume 92.1 fL (80-100); Monocytes Absolute Auto 1000 /uL (0-900); Neutrophils Absolute Auto 6600 /uL (1500-7000); Neutrophils Percent Auto 77.5 % (50-75); Platelet Count 130 X10^3/uL (150-400); Red Blood Cell Count 3.22 X10^6/uL (4.5-5.9); Red Cell Distribution Width 14.5 % (11.6-14.8); White Blood Cell Count 8.6 X10^3/uL (4.5-11.0)
[2023-06-04] MEDS: SODIUM CHLORIDE 0.9% 1,000 ML 125 ML IV (05:06)
[2023-06-04 05:08] LABS: BUN Creatinine Ratio 26.2 (6-22); Blood Urea Nitrogen 81 mg/dL (9-20); Calcium 9.1 mg/dL (8.4-10.2); Carbon Dioxide 22 mmol/L (22-32); Chloride 109 mmol/L (98-107); Estimated Glomerular Filt Rate 21 mL/min (>60); Glucose 98 mg/dL (80-110); HEMOLYSIS < 15 (0-50); Potassium 3.9 mmol/L (3.4-5.1); Sodium 139 mmol/L (137-145)
--- NOTE | 2023-06-04 06:51 | PC.NURSE ---
[employer] Program Coordinator Note-Patient remains A-fib RVR 100-130s with activity, BP 90-120/50-60s. NS @ 125ml/hr, IV Abx given, RA >92%, LS CTA. [place] and ice pack given for Lt knee pain. Voided 1125ml urine.
--- NOTE | 2023-06-04 07:42 | PM.PN.1 ---
Subjective Subjective Interval history: From previous notes: 68 years old male with history of atrial fibrillation on Pradaxa, hypertension, hyperlipidemia, COPD, GERD, BPH presented to the ER with multiple falls in the last several days. He was seen in the ED on May 28 after ground-level fall and left knee pain. Initial workup including x-ray was negative and the patient was sent home on oxycodone. Since then he was following at least 5 times due to pain in the left knee. Denies any loss of consciousness or head injuries. He also reports some shortness of breath and gained around 8 pounds in the last week. He also reports increased swelling of his legs. Denies any fever, chest pain, palpitations, nausea, vomiting, abdominal pain, diarrhea or dysuria. In the ER he was found to have A-fib with RVR and was given diltiazem 10 mg IV, albuterol nebulizer, metoprolol 50 mg p.o. fluid bolus 1 L and Lasix 40 mg IV. Laboratory shows WBC 8.1, H&H 11.1/32.9, platelets 124, INR 1.5, sodium 137, potassium 4.3, BUN 79, creatinine 3.81, calcium 10.2, BNP 10,500, lipase 34, UA shows leukoesterase 1+, WBC 1?5, bacteria. Vascular ultrasound was negative for DVT. Head CT negative. Chest x-ray preliminary negative. EKG shows atrial fibrillation of 123. Patient tells me he has been taking ibuprofen several times per day for a few weeks due to his L knee pain. He then noticed he was urinating less despite taking lasix the past week and his weight began to climb. He previously has NSAID-induced FERNANDA in the past from ibuprofen but his kidney function recovered. He also notes dysphagia with regurgitation of food the past week. This has been an ongoing problem and he has seen SENIOR VISUAL DESIGNER and [facility] in the past. His last EGD was a few years ago before the pandemic. He noticed chicken especially gets stuck at the bottom of his esophagus. Today: He notes recent escalation of left knee pain. He would the knee replaced back in 2016. He has had knee pain now for about 1-1/2 years. The pain is mostly anterior. He was seen by Orthopedics yesterday with no concern for infection. He also has some pain over the gastrocnemius. He denies recent fevers. He does have ongoing care at the [facility]. He was using lidocaine patches on this chronically. He is chronic atrial fibrillation in his in rapid response this morning. He was temporarily slow down yesterday with diltiazem. He denies palpitations or chest pain. Exam Vital Signs (past 8 hours): - 06/04/23 00:00 06/04/23 00:00 06/04/23 00:00 Temperature 97.2 F L Pulse Rate 102 H Respiratory Rate 16 Blood Pressure Pulse Oximetry Oxygen Delivery Method Room Air Oxygen Flow Rate 06/04/23 00:00 06/04/23 00:30 06/04/23 00:30 Temperature Pulse Rate 100 H Respiratory Rate 15 Blood Pressure 90/55 L 94/53 L Pulse Oximetry 96 Oxygen Delivery Method Oxygen Flow Rate 0 06/04/23 01:00 06/04/23 01:00 06/04/23 01:30 Temperature Pulse Rate 100 H 98 H Respiratory Rate 16 20 Blood Pressure 93/52 L Pulse Oximetry Oxygen Delivery Method Oxygen Flow Rate 06/04/23 01:30 06/04/23 02:00 06/04/23 02:00 Temperature Pulse Rate 104 H 104 H Respiratory Rate 22 22 Blood Pressure 103/58 L 114/54 L Pulse Oximetry Oxygen Delivery Method Oxygen Flow Rate 06/04/23 02:00 06/04/23 02:30 06/04/23 02:30 Temperature Pulse Rate 102 H Respiratory Rate 14 Blood Pressure 114/58 L 110/66 Pulse Oximetry Oxygen Delivery Method Oxygen Flow Rate 06/04/23 03:00 06/04/23 03:00 06/04/23 03:00 Temperature Pulse Rate 99 H 100 H Respiratory Rate 16 14 Blood Pressure 98/54 L 98/54 L Pulse Oximetry Oxygen Delivery Method Oxygen Flow Rate 06/04/23 03:30 06/04/23 03:30 06/04/23 04:00 Temperature Pulse Rate 103 H Respiratory Rate 17 Blood Pressure 101/62 Pulse Oximetry Oxygen Delivery Method Room Air Oxygen Flow Rate 06/04/23 04:00 06/04/23 04:00 06/04/23 04:00 Temperature 98 F Pulse Rate 104 H 101 H Respiratory Rate 17 Blood Pressure 104/56 L Pulse Oximetry 92 Oxygen Delivery Method Oxygen Flow Rate 0 06/04/23 04:00 06/04/23 04:30 06/04/23 05:00 Temperature Pulse Rate 101 H Respiratory Rate 15 Blood Pressure 104/56 L 99/71 Pulse Oximetry Oxygen Delivery Method Oxygen Flow Rate 06/04/23 05:00 06/04/23 06:00 Temperature Pulse Rate 100 H 103 H Respiratory Rate 17 13 Blood Pressure 107/66 Pulse Oximetry Oxygen Delivery Method Oxygen Flow Rate Oxygen Delivery Method Room Air Oxygen Flow Rate 0 Narrative Exam Narrative: NAD, alert and oriented. Fluent speech. Lungs are clear, normal rate and effort. Heart is irregular and tachycardic Abdomen is soft, non distended. Extremities are free of edema. Left knee surgical wound is there there is minimal effusion, no warmth or redness. There is no focal pain to palpation. There is no crepitus, warmth or redness in the legs around in the knee. Objective Labs 06/04/23 04:30 06/04/23 04:30 Labs: Laboratory Results - last 24 hr 06/03/23 06/03/23 06/04/23 05:45 09:45 04:30 WBC 7.9 8.6 RBC 3.16 L 3.22 L Hgb 9.8 L 10.0 L Hct 29.1 L 29.7 L MCV 92.1 92.1 MCH 30.9 31.0 MCHC 33.5 33.6 RDW 14.3 14.5 Plt Count 103 L 130 L Neut % (Auto) Not Reportable 77.5 H Lymph % (Auto) Not Reportable 8.5 L [place] % (Auto) Not Reportable 12.0 Eos % (Auto) Not Reportable 1.3 L Baso % (Auto) Not Reportable 0.7 Neut # (Auto) 6600 Lymph # (Auto) Not Reportable 700 L [place] # (Auto) Not Reportable 1000 H Eos # (Auto) 100 Baso # (Auto) Not Reportable 100 Total Counted 100 Seg Neutrophils % 75.0 H Band Neutrophils % 8.0 H Lymphocytes % (Manual) 6.0 L Monocytes % (Manual) 11.0 Neutrophils # (Manual) 6557 H Toxic Granulation Present H Dohle Bodies 1+ H RBC Morphology See below Anisocytosis 1+ H Ovalocytes 1+ H [place] Cells 2+ H Schistocytes 1+ H Sodium 136 L 139 Potassium 4.2 3.9 Chloride 107 109 H Carbon Dioxide 23 22 BUN 82 H 81 H Creatinine 3.59 H 3.09 H Estimated GFR 18 L 21 L BUN/Creatinine Ratio 22.8 H 26.2 H Glucose 109 98 Calcium 9.6 9.1 Ur Random Sodium 48 PFSH Medical History Chronic, continuous use of opioids Iron deficiency anemia following bariatric surgery BPH w/o urinary obs/LUTS DDD (degenerative disc disease), lumbar Pacemaker Allergic rhinitis Obstructive sleep apnea, adult Obesity (BMI 30-39.9) Hyperlipidemia Fatigue due to sleep pattern disturbance GERD (gastroesophageal reflux disease) Essential hypertension 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) Left inguinal hernia Chronic kidney disease (CKD) stage G3a/A1, moderately decreased glomerular filtration rate (GFR) between 45-59 mL/min/1.73 square meter and albuminuria creatinine ratio less than 30 mg/g Atrial fibrillation Surgical History H/O left inguinal hernia repair History of cholecystectomy H/O gastric bypass Family History Family/Other Loud snoring Dementia Father Loud snoring Obesity Hypertension Heart disease Mother Loud snoring Obesity Hypertension Depression Anxiety Family/Other Hypertension Depression Social History household members: spouse Smoking Status: Never smoker alcohol intake: never Assessment & Plan Assessment & Plan narrative: Acute on chronic diastolic heart failure, present on admission and improved. -peripheral edema, pulm edema on CXR, BNP elevated -Monitor I and O; daily standing weight -low sodium diet -echo with EF 60-65%, worsened mild , mod TR -hold diuresis until renal function improves. Acute kidney injury, present on admission and active. -Presented with creatinine 3.81, baseline between 1.1?1.5. Most likely intrinsic due to frequent NSAID use. -UA bland -hold ACEI -monitor UOP. -daily BMP -Renal U/S negative -Avoid any nephrotoxic agents, including NSAIDs and counseled patient to avoid ibuprofen from now on -Dose all medications according current eGFR -monitor renal function closely. Frequent falls due to L knee pain with effusion. Present on admission and active. -See ortho notes. No concern for infection. -PT and OT evaluation. Fall precaution. Pain medications as needed. -resume lidocaine patch to knee. Dysphagia with regurgitation, chronic and active. -patient notes food stuck in his esophagus for the past week, has history of dysphagia -hold pradaxa if dilation needed -delay EGD until outpatient. -speech therapy evaluation. Diet as tolerated. A-fib with RVR, present on admission and improved. -The patient was given diltiazem 10 mg IV in the ED. HR now improved to 90's. -Restarted metoprolol, held Pradaxa due to EGD. Telemetry -increase metoprolol to 50 t.i.d. for rate control. Hyperlipidemia. Present on admission and active. - Restart Lipitor and check lipids GERD. Present on admission and active. - Restart pantoprazole BPH. Present on admission and active. -Restart Flomax Dispo: May need SNF due to falls. Quality VTE Deep Vein Thrombosis/Pulmonary Embolism Present on Admission: No
[2023-06-04] MEDS: METOPROLOL ER 50 MG TABLET PO (08:34)
[2023-06-04] MEDS: PANTOPRAZOLE DR 40 MG TABLET PO (08:34)
[2023-06-04] MEDS: FINASTERIDE 5 MG TABLET PO (08:34)
[2023-06-04] MEDS: DABIGATRAN 75 MG CAPSULE PO ×2 (08:34→20:35)
[2023-06-04] MEDS: TAMSULOSIN 0.4 MG CAPSULE PO ×2 (08:34→20:35)
[2023-06-04] MEDS: ATORVASTATIN 20 MG TABLET 10 MG PO (08:34)
[2023-06-04] MEDS: DOCUSATE 100 MG CAPSULE PO ×2 (08:34→20:35)
[2023-06-04] MEDS: HYDROMORPHONE 0.5 MG INJ IV (10:02)
--- NOTE | 2023-06-04 10:51 | PC.NURSE ---
HR sustaining 100-120, randomly jumps to 140-160. Pain controlled, other vitals stable. Dr Madrid made aware
--- NOTE | 2023-06-04 11:03 | PM.CN ---
History of Present Illness Consult details Chief complaint: fall Narrative: No complaints regarding his knee. Still has swelling of the left lower extremity. Meds Home Medications and Allergies Home Medications Medication Instructions Recorded Confirmed Type finasteride 5 mg tablet 5 mg PO QDAY ##0 10/12/16 06/03/23 History furosemide 20 mg tablet 20 mg PO QDAY PRN Water retention 10/12/16 06/03/23 History ##0 losartan 25 mg tablet 25 mg PO QDAY ##0 10/12/16 06/03/23 History multivitamin (Multiple Vitamins 1 tab PO QPM ##0 10/12/16 06/03/23 History tablet) pantoprazole 40 mg tablet,delayed 40 mg PO QDAY ##0 10/12/16 06/03/23 History release tamsulosin 0.4 mg capsule (Flomax) 0.4 mg PO BID ##0 10/12/16 06/03/23 History metoprolol succinate 50 mg 50 mg PO DAILY 03/19/20 06/03/23 History tablet,extended release 24 hr nitroglycerin 0.4 mg sublingual 0.4 mg sublingual Q5M PRN Chest 12/24/21 06/03/23 History tablet Pain atorvastatin 10 mg tablet 10 mg PO DAILY 01/31/23 06/03/23 History dabigatran etexilate 150 mg capsule 150 mg PO DAILY 01/31/23 06/03/23 History oxycodone-acetaminophen 10 mg-325 1 tab PO 4XD PRN Pain (Scale Score 01/31/23 06/03/23 History mg tablet 4-6) Allergies Allergy/AdvReac Type Severity Reaction Status Date / Time tramadol Allergy Intermediate shakey Verified 01/31/23 10:44 NSAIDS (Non-Steroidal AdvReac Intermediate pt is not Verified 01/31/23 10:44 Anti-Inflamma supposed [NSAIDS (NON-STEROIDAL to take ANTI-INFLAMMA] them Exam Vital Signs (past 8 hours): - 06/04/23 03:30 06/04/23 03:30 06/04/23 04:00 Temperature Pulse Rate 103 H Respiratory Rate 17 Blood Pressure 101/62 Pulse Oximetry Oxygen Delivery Method Room Air Oxygen Flow Rate 06/04/23 04:00 06/04/23 04:00 06/04/23 04:00 Temperature 98 F Pulse Rate 104 H 101 H Respiratory Rate 17 Blood Pressure 104/56 L Pulse Oximetry 92 Oxygen Delivery Method Oxygen Flow Rate 0 06/04/23 04:00 06/04/23 04:30 06/04/23 05:00 Temperature Pulse Rate 101 H Respiratory Rate 15 Blood Pressure 104/56 L 99/71 Pulse Oximetry Oxygen Delivery Method Oxygen Flow Rate 06/04/23 05:00 06/04/23 05:30 06/04/23 06:00 Temperature Pulse Rate 100 H 109 H 103 H Respiratory Rate 17 24 13 Blood Pressure 107/66 Pulse Oximetry Oxygen Delivery Method Oxygen Flow Rate 06/04/23 06:00 06/04/23 06:00 06/04/23 06:30 Temperature Pulse Rate 108 H 104 H Respiratory Rate 15 15 Blood Pressure 107/66 Pulse Oximetry Oxygen Delivery Method Oxygen Flow Rate 06/04/23 07:00 06/04/23 07:00 06/04/23 07:30 Temperature Pulse Rate 101 H 102 H Respiratory Rate 18 18 Blood Pressure 99/54 L 99/54 L Pulse Oximetry Oxygen Delivery Method Oxygen Flow Rate 06/04/23 08:00 06/04/23 08:00 06/04/23 08:00 Temperature Pulse Rate 104 H Respiratory Rate 20 Blood Pressure 109/56 L Pulse Oximetry Oxygen Delivery Method Room Air Oxygen Flow Rate 06/04/23 08:30 06/04/23 09:00 06/04/23 09:00 Temperature Pulse Rate 104 H 111 H Respiratory Rate 18 22 Blood Pressure 112/65 Pulse Oximetry Oxygen Delivery Method Oxygen Flow Rate 06/04/23 09:04 06/04/23 09:30 06/04/23 10:00 Temperature Pulse Rate 105 H 110 H Respiratory Rate 17 Blood Pressure 114/65 114/68 Pulse Oximetry Oxygen Delivery Method Oxygen Flow Rate 06/04/23 10:00 Temperature Pulse Rate 118 H Respiratory Rate 19 Blood Pressure Pulse Oximetry Oxygen Delivery Method Oxygen Flow Rate Oxygen Delivery Method Room Air Oxygen Flow Rate 0 Narrative Exam Narrative: Moderate effusion throughout the left knee joint capsule. 3+ pitting edema over the anterior tibial shaft. Posterior calf is warm with pain to deep compression. Limited range of motion with flexion to 90? with pain. Valgus and valgus stressing indicates no laxity. No signs of infectious process over the left knee joint capsule Objective Labs 06/04/23 04:30 06/04/23 04:30 Labs: Laboratory Results - last 24 hr 06/03/23 06/04/23 05:45 04:30 WBC 8.6 RBC 3.22 L Hgb 10.0 L Hct 29.7 L MCV 92.1 MCH 31.0 MCHC 33.6 RDW 14.5 Plt Count 130 L Neut % (Auto) 77.5 H Lymph % (Auto) 8.5 L [place] % (Auto) 12.0 Eos % (Auto) 1.3 L Baso % (Auto) 0.7 Neut # (Auto) 6600 Lymph # (Auto) 700 L [place] # (Auto) 1000 H Eos # (Auto) 100 Baso # (Auto) 100 Sodium 139 Potassium 3.9 Chloride 109 H Carbon Dioxide 22 BUN 81 H Creatinine 3.09 H Estimated GFR 21 L BUN/Creatinine Ratio 26.2 H Glucose 98 Calcium 9.1 Ur Random Sodium 48 PFSH Medical History Chronic, continuous use of opioids Iron deficiency anemia following bariatric surgery BPH w/o urinary obs/LUTS DDD (degenerative disc disease), lumbar Pacemaker Allergic rhinitis Obstructive sleep apnea, adult Obesity (BMI 30-39.9) Hyperlipidemia Fatigue due to sleep pattern disturbance GERD (gastroesophageal reflux disease) Essential hypertension 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 (08/25/20) Left inguinal hernia Chronic kidney disease (CKD) stage G3a/A1, moderately decreased glomerular filtration rate (GFR) between 45-59 mL/min/1.73 square meter and albuminuria creatinine ratio less than 30 mg/g Atrial fibrillation Surgical History H/O left inguinal hernia repair History of cholecystectomy H/O gastric bypass Family History Family/Other Loud snoring Dementia Father Loud snoring Obesity Hypertension Heart disease Mother Loud snoring Obesity Hypertension Depression Anxiety Family/Other Hypertension Depression Social History household members: spouse Tobacco & Substance Use Smoking Status: Never smoker alcohol intake: never Assessment & Plan Assessment & Plan narrative: No signs of infectious process over left total knee arthroplasty. Continue to engage with range of motion as tolerated and weight bear as tolerated with the lower left lower extremity. If able tend appointment with a knee specialist on Tuesday. Time Spent With Patient Time with patient: less than 30 minutes
--- NOTE | 2023-06-04 11:21 | CM.DPC ---
DCP Cont. Reviewed EMR and team rounds for status updates. Per Dr. Madrid, pt may need SNF at d/c. Met with pt at bedside to discuss d/c preferences. He states that he does not need to go to a SNF for rehab, and that his son and have a plan for him to sleep downstairs in a recliner in their home, and can help him with all of his care and recovery needs. Will cont. to monitor for any further evolving d/c needs/recommendations.
[2023-06-04] MEDS: METOPROLOL IR 50 MG TABLET PO (12:45)
--- NOTE | 2023-06-04 13:06 | ST.IPCSEOM ---
Visit Care Team Role Provider Type Natasha Carroll MD Primary Care Provider Physician Specialty: Internal Medicine Address: [place], [place], [facility] Email: Gilmer Ball MD Other Providers Physician Specialty: General Surgery Address: [address] [place] [address], [facility] Email: [email or web address] Solitario MD Other Providers Physician Specialty: Orthopedics Orthopedic Surgery Address: [address] [place] [address], [id number] Email: [email or web address] Emergency Provider Physician Referring Provider Specialty: Emergency Medicine Address: [address] [place] [address], [facility] Email: [email or web address] MD Admit Provider Physician Attending Provider Specialty: Internal Medicine Address: [address] [place] [address], [facility] Fax: Email: [email or web address] [email or web address] Acute on chronic diastolic (congestive) heart failure (06/03/23) Past Medical History (Last Reviewed 06/04/23 @ 07:44 by Yimi Madrid MD) Allergic rhinitis (Medical) Atrial fibrillation (Medical) BPH w/o urinary obs/LUTS (Medical) Chronic kidney disease (CKD) stage G3a/A1, moderately decreased glomerular filtration rate (GFR) between 45-59 mL/min/1.73 square meter and albuminuria creatinine ratio less than 30 mg/g (Medical) Chronic, continuous use of opioids (Medical) Stable DDD (degenerative disc disease), lumbar (Medical) Essential hypertension (Medical) Fatigue due to sleep pattern disturbance (Medical) GERD (gastroesophageal reflux disease) (Medical) Hyperlipidemia (Medical) Iron deficiency anemia following bariatric surgery (Medical) Left inguinal hernia (Medical) 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 (Medical 08/25/20) CPAP recall Obesity (BMI 30-39.9) (Medical) Obstructive sleep apnea, adult (Medical) Pacemaker (Medical) Speech-Language Pathology Swallow Evaluation TURNING SANDER OPERATOR Clinical Swallow Evaluation Start: 06/04/23 12:30 Freq: Status: Active Protocol: Document 06/04/23 12:30 MG (Rec: 06/04/23 13:06 MG [id number]) Clinical Swallow Evaluation Session Time Visit Start Time 10:30 Visit Stop Time 11:00 Total Visit Minutes 30 Visit Information Visit Number 1 Referral Reason for Referral Regurgitating meals and difficulty eating Setting Assessment Location Acute Care Visit Type Note Type Initial evaluation Next Note Type Next Note Type Re-evaluation Patient Information Identification Type Name,Wristband History Per H&P: 68 years old male with history of atrial fibrillation on Pradaxa, hypertension, hyperlipidemia, COPD, GERD, BPH presented to the ER with multiple falls in the last several days. He was seen in the ED on May 28 after ground-level fall and left knee pain. Initial workup including x-ray was negative and the patient was sent home on oxycodone. Since then he was following at least 5 times due to pain in the left knee. Denies any loss of consciousness or head injuries . He also reports some shortness of breath and gained around 8 pounds in the last week. He also reports increased swelling of his legs . Denies any fever, chest pain, palpitations, nausea, vomiting, abdominal pain, diarrhea or dysuria. In TURNING SANDER OPERATOR interview, the pt reported he had a GI workup done and noted his has esophageal and swallowing difficulties. Pt noted to this TURNING SANDER OPERATOR that he has not worked with speech therapy before. His last EGD was a few years ago before the pandemic. His moments of eating difficulties have been on and off for a few years and vary in severity . The pt noted that a couple weeks ago he had takeout chicken and had no difficulties eating it but this morning he regurgitated his breakfast of scrambled eggs. Pt also has a history of hernias and hernia surgery. Subjective Observations The pt was resting in bed upon TURNING SANDER OPERATOR entry. Earlier, the pt had difficulty consuming breakfast and did regurgiate it. He reported he felt like it got stuck and pointed to the space between his collarbones of where it felt stuck. Throughout evaluation, the pt appeared to be nodding off between conversations. Pt is hard of hearing and does not have his amplification at the hospital. Pt's voice was harsh and rough, which he noted is not normal but happened due to his earlier regurgitation incident during breakfast. Of note, the pt was burping and coughing prior to PO trials. Reported by Patient/Caregiver Other Symptoms Coughing,Food gets stuck,Other Comment Regurgitation of meals Current Diet Regular (IDDSI 7) Baseline Feeding Method Independent in self-feeding The IDDSI Framework Protocol: IDDSI.1 Objective Assessment Mental Status Alert,Responsive,Cooperative, Lethargic Oral Integrity WFL Dentition Within normal limits Lip Function Mild impairment Observation of Lips at Rest Left sided weakness/Drooping Pucker Reduced range of motion, Reduced strength Lip Retraction Within normal limits Alternating Pucker/Lip Retraction Reduced range of motion Tongue Function Moderate impairment Observations of Tongue at Rest Within normal limits Tongue Protrusion Reduced range of motion, Reduced strength Tongue Retraction Reduced range of motion, Reduced strength Tongue Lateralization Reduced range of motion, Reduced strength Jaw Function Within normal limits Observation of Jaw at Rest Within normal limits Jaw Opening Within normal limits Jaw Closing Within normal limits Jaw Lateralization Within normal limits Jaw Protrusion Within normal limits Jaw Retraction Within normal limits Hard/Soft Palate Function Within normal limits Observations of Hard/Soft Palate Within normal limits Nasality Within normal limits Respiratory Sufficiency Mild impairment Comment Pt overall has some noted weaknesses of the oral mechanism. Very slight left droop noted on the corner of the mouth. Cannot lift tongue upwards or down effectively. Some tongue weakness observed during [id number] task with noted reduced rate of speech. Food and Liquid Trials Position During Assessment Upright (90 degrees) Liquids Trialed Thin (IDDSI 0) Administration Type Tea spoon,Straw,Self-feeding Oral Impairment Mildly impaired Oral Phase Comments Pt refused to intake solid PO trials. No anterior spillage noted during liquid trials. Pharyngeal Impairment Mildly impaired Pharyngeal Phase Comments Larungeal palpation indicated adequate hyolaryngeal movement and slightly reduced anterior hyoid excursion. No overt s/ sx of aspiration noted on all liquid trials. The pt would not participate in solid trials due to not feeling good and not feeling hungry at this time. Pt did take medication one pill at a time from nurse and reported that he felt they went down alright. Fatigue/Endurance Moderate fatigue Comment Pt was observed to be fatigued as trials progressed. Due to this and refusal to intake solid PO trials, no further trials were administered. Strategies Attempted Effortful swallow The IDDSI Framework Protocol: IDDSI.1 Findings Swallowing Function Oropharyngeal phase dysphagia Severity of Swallow Impairment Mildly-moderately impaired Contributing Factors to Swallow Reduced oral strength/ Impairment coordination/sensation,Reduced laryngeal excursion Prognosis Fair Based on Comorbidities,Duration of symptoms/severity Impact on Safety and Functioning Risk for aspiration,Risk for inadequate nutrition/hydration Recommendations Swallowing Treatment Yes Recommended Solids Minced & Moist (IDDSI 5) Recommended Liquids Thin (IDDSI 0) Other Recommendations Recommended a diet downgrade today in order to help the pt consume more and allow easier foods to consume. Discussed laryngeal vs esophageal difficulties; with noted regurgitation and burping with his history, may likely be esophageal dysfunction impacting ability to consume meals along with some dysphagia like symptoms. Pt would benifit from a GI consult to assess esophageal function. Safety Precautions/Swallowing Feed only when alert,Reduce Recommendations distractions,Remain upright ( 90 degrees) during all oral intake,Small bites and sips when eating,Slow rate; swallow between bites Medication Recommendations One at a Time Discharge Recommendations nursing home facility Referrals Recommended Referrals Gastroenterology Goals Short-term Goals Re-evaluate when pt is open to trialing solid PO trials.
[2023-06-04] MEDS: CEFEPIME 2 GM in SODIUM CHLORIDE 0.9% 100 ML IV (16:41)
[2023-06-04] MEDS: LORATADINE 10 MG TABLET PO (17:42)
[2023-06-04] MEDS: ACETAMINOPHEN 325 MG TABLET 650 MG PO (23:44)
[2023-06-05] VITALS (7 sets, daily range): BP systolic 129–145; BP diastolic 61–77; PULSE 77–108; RESP 16–22; TEMP 36.4–37.1; O2SAT 93–96
[2023-06-05 04:45] LABS: Add Manual Diff / Slide Review NO; Basophils Absolute Auto 0 /uL (0-100); Basophils Percent Auto 0.4 % (0-2); Eosinophils Absolute Auto 100 /uL (0-450); Eosinophils Percent Auto 0.8 % (2-4); Hematocrit 30.2 % (41-53); Hemoglobin 10.1 g/dL (13.5-17.5); Lymphocytes Absolute Auto 1100 /uL (1100-4500); Lymphocytes Percent Auto 10.5 % (25-40); Mean Corpuscular HGB Conc 33.5 % (30-36); Mean Corpuscular Hemoglobin 30.5 PG (26-34); Monocytes Absolute Auto 900 /uL (0-900); Monocytes Percent Auto 8.6 % (3-14); Neutrophils Absolute Auto 8200 /uL (1500-7000); Neutrophils Percent Auto 79.7 % (50-75); Platelet Count 168 X10^3/uL (150-400); Red Blood Cell Count 3.32 X10^6/uL (4.5-5.9); Red Cell Distribution Width 14.9 % (11.6-14.8); White Blood Cell Count 10.3 X10^3/uL (4.5-11.0)
[2023-06-05 04:59] LABS: BUN Creatinine Ratio 36.3 (6-22); Blood Urea Nitrogen 58 mg/dL (9-20); Calcium 9.1 mg/dL (8.4-10.2); Carbon Dioxide 23 mmol/L (22-32); Chloride 110 mmol/L (98-107); Estimated Glomerular Filt Rate 47 mL/min (>60); Glucose 104 mg/dL (80-110); HEMOLYSIS < 15 (0-50); Sodium 140 mmol/L (137-145)
--- NOTE | 2023-06-05 08:13 | P.PN_ITS ---
Subjective Subjective Interval history: Today he can say his chronic back pain is about the same as usual. His acute pain was in his left knee. Now the knee feels better and his pain is more in the upper calf. His gross lower leg edema is ABNORMAL. He denies loss of sensation. No chest pain, or dyspnea. He denies palpitations. Exam Vital Signs (past 8 hours): - 06/05/23 04:00 06/05/23 07:00 Temperature 98.7 F Pulse Rate 100 H Respiratory Rate 22 Blood Pressure 129/62 Pulse Oximetry 93 Oxygen Delivery Method Room Air Oxygen Delivery Method Room Air Oxygen Flow Rate 0 Narrative Exam Narrative: NAD, alert and oriented. Fluent speech. Lungs are clear, normal rate and effort. Heart is regular, no murmur gallop or rub. Abdomen is soft, non distended. Extremities: left leg is edematous below the knee, it is warm and not red. Feet are even in color and equally warm. Objective Imaging CT Leg: : Radiologist's impression: IMPRESSION: Status post total knee arthroplasty. Fluid collection within the lateral leg difficult to delineate if there is continuity to the joint space secondary to metallic artifact. This may represent postoperative seroma, hematoma, or abscess. Labs 06/05/23 04:12 06/05/23 04:12 Labs: Laboratory Results - last 24 hr 06/05/23 04:12 WBC 10.3 RBC 3.32 L Hgb 10.1 L Hct 30.2 L MCV 91.0 MCH 30.5 MCHC 33.5 RDW 14.9 H Plt Count 168 Neut % (Auto) 79.7 H Lymph % (Auto) 10.5 L [place] % (Auto) 8.6 Eos % (Auto) 0.8 L Baso % (Auto) 0.4 Neut # (Auto) 8200 H Lymph # (Auto) 1100 [place] # (Auto) 900 Eos # (Auto) 100 Baso # (Auto) 0 Sodium 140 Potassium 4.0 Chloride 110 H Carbon Dioxide 23 BUN 58 H Creatinine 1.60 H Estimated GFR 47 L BUN/Creatinine Ratio 36.3 H Glucose 104 Calcium 9.1 PFSH Medical History Chronic, continuous use of opioids Iron deficiency anemia following bariatric surgery BPH w/o urinary obs/LUTS DDD (degenerative disc disease), lumbar Pacemaker Allergic rhinitis Obstructive sleep apnea, adult Obesity (BMI 30-39.9) Hyperlipidemia Fatigue due to sleep pattern disturbance GERD (gastroesophageal reflux disease) Essential hypertension 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 (08/25/20) Left inguinal hernia Chronic kidney disease (CKD) stage G3a/A1, moderately decreased glomerular filtration rate (GFR) between 45-59 mL/min/1.73 square meter and albuminuria creatinine ratio less than 30 mg/g Atrial fibrillation Surgical History H/O left inguinal hernia repair History of cholecystectomy H/O gastric bypass Family History Family/Other Loud snoring Dementia Father Loud snoring Obesity Hypertension Heart disease Mother Loud snoring Obesity Hypertension Depression Anxiety Family/Other Hypertension Depression Social History household members: spouse and children Smoking Status: Never smoker alcohol intake: never Assessment & Plan Assessment & Plan narrative: 1. Left leg edema and fluid collection with possible cellulitis, present on admission and active. -continue Abx. Focused to Ceftriaxone. -Discuss CT findings with general surgery (came out around 16:30). -may need incision and drainage. 2. Acute on chronic diastolic heart failure, present on admission and improved. -peripheral edema, pulm edema on CXR, BNP elevated -echo with EF 60-65%, worsened mild , mod TR -hold diuresis until renal function improves. 3. Acute kidney injury, present on admission and dramatically improved. -Presented with creatinine 3.81, baseline between 1.1?1.5. Most likely intrinsic due to frequent NSAID use. -monitor renal function closely. 4. Frequent falls due to L knee pain with effusion. Present on admission and active. -See ortho notes. No concern for infection. -PT and OT evaluation. Fall precaution. Pain medications as needed. -resumed lidocaine patch to knee. 5. Dysphagia with regurgitation, chronic and active. -patient notes food stuck in his esophagus for the past week, has history of dysphagia -hold pradaxa if dilation needed -delay EGD until outpatient. -speech therapy evaluation. Diet as tolerated. 6. A-fib with RVR, present on admission and improved. -The patient was given diltiazem 10 mg IV in the ED. HR now improved to 90's. -Restarted metoprolol, held Pradaxa due to EGD. Telemetry -increase metoprolol to 50 b.i.d. for rate control. 7. Hyperlipidemia. Present on admission and active. - Restart Lipitor and check lipids 8. GERD. Present on admission and active. - Restart pantoprazole 9. BPH. Present on admission and active. -Restart Flomax Dispo: May need SNF due to falls. Quality VTE Deep Vein Thrombosis/Pulmonary Embolism Present on Admission: No
[2023-06-05] MEDS: ATORVASTATIN 20 MG TABLET 10 MG PO (08:51)
[2023-06-05] MEDS: PANTOPRAZOLE DR 40 MG TABLET PO (08:52)
[2023-06-05] MEDS: METOPROLOL ER 50 MG TABLET PO (08:52)
[2023-06-05] MEDS: CLINDAMYCIN 900 MG/50 ML PIGGYBACK 50 MG IV (08:53)
[2023-06-05] MEDS: DOCUSATE 100 MG CAPSULE PO ×2 (08:53→20:26)
[2023-06-05] MEDS: DABIGATRAN 75 MG CAPSULE PO ×2 (08:53→20:26)
[2023-06-05] MEDS: FINASTERIDE 5 MG TABLET PO (08:53)
[2023-06-05] MEDS: LIDOCAINE 5% PATCH 1 EACH TOP (08:53)
[2023-06-05] MEDS: TAMSULOSIN 0.4 MG CAPSULE PO ×2 (08:53→20:26)
[2023-06-05] MEDS: ACETAMINOPHEN 325 MG TABLET 650 MG PO ×3 (09:00→22:38)
--- NOTE | 2023-06-05 09:46 | PM.PN.1 ---
Subjective Subjective Interval history: Patient with a history of multiple falls over the last few days complaining of pain and swelling to both knees. Has a history of a total knee arthroplasty on the left side. Exam Vital Signs (past 8 hours): - 06/05/23 04:00 06/05/23 07:00 Temperature 98.7 F Pulse Rate 100 H Respiratory Rate 22 Blood Pressure 129/62 Pulse Oximetry 93 Oxygen Delivery Method Room Air Oxygen Delivery Method Room Air Oxygen Flow Rate 0 Narrative Exam Narrative: Range of motion is improved today compared to when I initially saw the patient on Tuesday. Able to flex to 90?. No sign of any instability to his total joint no sign of any infectious process. Objective Labs 06/05/23 04:12 06/05/23 04:12 Labs: Laboratory Results - last 24 hr 06/05/23 04:12 WBC 10.3 RBC 3.32 L Hgb 10.1 L Hct 30.2 L MCV 91.0 MCH 30.5 MCHC 33.5 RDW 14.9 H Plt Count 168 Neut % (Auto) 79.7 H Lymph % (Auto) 10.5 L [place] % (Auto) 8.6 Eos % (Auto) 0.8 L Baso % (Auto) 0.4 Neut # (Auto) 8200 H Lymph # (Auto) 1100 [place] # (Auto) 900 Eos # (Auto) 100 Baso # (Auto) 0 Sodium 140 Potassium 4.0 Chloride 110 H Carbon Dioxide 23 BUN 58 H Creatinine 1.60 H Estimated GFR 47 L BUN/Creatinine Ratio 36.3 H Glucose 104 Calcium 9.1 PFSH Medical History Chronic, continuous use of opioids Iron deficiency anemia following bariatric surgery BPH w/o urinary obs/LUTS DDD (degenerative disc disease), lumbar Pacemaker Allergic rhinitis Obstructive sleep apnea, adult Obesity (BMI 30-39.9) Hyperlipidemia Fatigue due to sleep pattern disturbance GERD (gastroesophageal reflux disease) 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) Left inguinal hernia Chronic kidney disease (CKD) stage G3a/A1, moderately decreased glomerular filtration rate (GFR) between 45-59 mL/min/1.73 square meter and albuminuria creatinine ratio less than 30 mg/g Atrial fibrillation Surgical History H/O left inguinal hernia repair History of cholecystectomy H/O gastric bypass Family History Family/Other Loud snoring Dementia Father Loud snoring Obesity Hypertension Heart disease Mother Loud snoring Obesity Hypertension Depression Anxiety Family/Other Hypertension Depression Social History household members: spouse Smoking Status: Never smoker alcohol intake: never Assessment & Plan Assessment & Plan narrative: Patient can weightbear as tolerated. Would recommend a follow-up with our total knee specialist when he is discharged from the hospital. Quality VTE Deep Vein Thrombosis/Pulmonary Embolism Present on Admission: No
[2023-06-05] MEDS: HYDROCODONE/ACET 10/325 TABLET 1 TAB PO ×2 (12:32→20:26)
[2023-06-05] MEDS: cefTRIAXone 1,000 MG in SODIUM CHLORIDE 0.9% 100 ML 200 MG IV (12:32)
--- NOTE | 2023-06-05 13:03 | PT.IIE ---
Current Diagnoses Acute on chronic diastolic (congestive) heart failure (06/03/23) Surgical History (Last Reviewed 06/04/23 @ 07:44 by Yimi Madrid MD) H/O gastric bypass H/O left inguinal hernia repair History of cholecystectomy Medical History (Last Reviewed 06/04/23 @ 07:44 by Yimi Madrid MD) Allergic rhinitis Atrial fibrillation BPH w/o urinary obs/LUTS Chronic kidney disease (CKD) stage G3a/A1, moderately decreased glomerular filtration rate (GFR) between 45-59 mL/min/1.73 square meter and albuminuria creatinine ratio less than 30 mg/g Chronic, continuous use of opioids DDD (degenerative disc disease), lumbar Essential hypertension Fatigue due to sleep pattern disturbance GERD (gastroesophageal reflux disease) Hyperlipidemia Iron deficiency anemia following bariatric surgery Left inguinal hernia 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) Obesity (BMI 30-39.9) Obstructive sleep apnea, adult Pacemaker Physical Therapy Inpatient Evaluation/Re-Eval M1 PT/OT-IP Prior Functional Status Start: 06/05/23 09:28 Freq: NEEDED Status: Active Protocol: Document 06/05/23 12:05 MB (Rec: 06/05/23 13:03 MB [id number]) Medical Review Prior Functional Status Medical History Reviewed Yes Communication Per chart, history of dysphagia Mobility and Gait Pt reports that he ambulated with SBQC and had five falls the day before adm d/t left leg giving out Activities of Daily Living and IADL's Pt reports 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 2 steps and then 3 steps to enter with two rails Home Environment Standard Height Toilet,Tub/ Shower Home Equipment Quad Cane,Shower Seat without Backrest Employment Status Retired Additional Social History Comment Pt states that they have a borrowed rollator for [employer] for his and he has been using it but it is partially broken and his also needs it M2 PT-IP Current Condition Start: 06/05/23 09:28 Freq: NEEDED Status: Active Protocol: Document 06/05/23 12:05 MB (Rec: 06/05/23 13:03 MB [id number]) Physical Therapy Current Condition Current Condition Evaluation Date 06/05/23 Treatment Diagnosis Five falls at home, LLE edema and pain, dysphagia M3 PT-IP Subjective Start: 06/05/23 09:28 Freq: NEEDED Status: Active Protocol: Document 06/05/23 12:05 MB (Rec: 06/05/23 13:03 MB [id number]) Subjective Physical Therapy Visit Type Type Initial Evaluation Visit Start Time 12:05 Visit Stop Time 12:45 Number of AUTO SLIP COVER INSTALLER Visits 0 Physical Therapy Visit Comments Patient Comments My left leg just hurts. Therapy Pain Assessment Pain When Pain Assessed At Rest Pain Present Pain Present Pain Reported Location Left Knee Intensity 5 Scale Used Penaloza-Mcintyre (Faces) Description Chronic,Tightness,With Movement Pain Behaviors Calling Out,Facial Grimacing, Guarding,Holding Area,Wincing Pain Management Techniques Distraction,Modification of Treatment,Re-positioning, Timing of Activity with Medications M4 PT-IP Mobility and Gait Start: 06/05/23 09:28 Freq: NEEDED Status: Active Protocol: Document 06/05/23 12:05 MB (Rec: 06/05/23 13:03 MB [id number]) PT-Bed Mobility Assessment Supine to Sit Supine to Sit Moderate Assistance,1 Person Assistance,Head of Bed Elevated,Bedrails Sit to Supine Sit to Supine Maximum Assistance,1 Person Assistance,Head of Bed Elevated,Bedrails Scooting Scooting to Edge of Bed Minimal Assistance PT-Transfer Assessment Sit to and From Stand Sit to and from Stand Moderate Assistance,1 Person Assistance,Use of Upper Extremities Equipment Transfer Assistive Device Gait Belt,Front Wheeled Walker Orthotic/Prosthetic Devices or Brace: No Comments Mobility Comments Pt's LLE is shiny, has discoloration, and is edematous and warm with pitting edema posterior calf area. Pt has pain patch on his anterior knee over the patella. Pt has a bruise left lateral hip area and he requires PT to assist with guarding LLE with all bed mobility. Pt requires cues and use of HOB for hands to scoot up to the HOB for position and PT blocks right foot and cues him to push up through his foot to help mobilize in the bed. Pt is unable to stand all the way up with two STS trials from EOB with use of RW and PT mod to max A and pt locks his legs out and does not extend through his hips. He states that he cannot stand all the way up or his legs will go out. Pt is unable to weight shift. Sitting balance is pretty good with UE support and so if pt has a spinal contribution to his symptoms, it is likely lumbar or sacral in nature. PT-Balance Assessment Sitting Balance and Reactions Static Sitting Balance Ability Fair Dynamic Sitting Balance Ability Poor Standing Balance and Reactions Static Standing Balance Ability Poor Dynamic Standing Balance Ability Poor Device Used RW M5 PT-IP Objective Assessments Start: 06/05/23 09:28 Freq: NEEDED Status: Active Protocol: Document 06/05/23 12:05 MB (Rec: 06/05/23 13:03 MB [id number]) Orientation Orientation/Cognition Level of Alertness Alert Orientation Name,Age,Birthday,Month,Date, Year,Day of Week,Place, Situation Language Function Ability No Deficits Noted Safety Awareness Decreased Safety Awareness Memory Description No Deficits Noted Gross Range of Motion Upper Extremity ROM Assessment Within Functional Limits Lower Extremity ROM Assessment Left Impaired Strength Upper Extremity Strength Assessment Within Functional Limits Lower Extremity Strength Assessment Left Impaired Comments Strength Comments Pt cannot tolerate MMT LLE and in supine, he has trouble following MMT commands for right LE but in supine, great toe extension is grossly 3+/5, knee extension is grossly 4/5 and he appears functionally weaker in right hip with standing Coordination Assessment Gross Coordination Gross Coordination Impaired M6 PT-IP Treatment Start: 06/05/23 09:28 Freq: NEEDED Status: Active Protocol: Document 06/05/23 12:05 MB (Rec: 06/05/23 13:03 MB [id number]) Physical Therapy Treatment Education Education Provided Safety M7 PT-IP Assessment and Plan Start: 06/05/23 09:28 Freq: NEEDED Status: Active Protocol: Document 06/05/23 12:05 MB (Rec: 06/05/23 13:03 MB [id number]) PT Summary Assessment and Plan Potential Rehabilitation Potential Fair Status of Condition at Evaluation Evolving Summary Impairments Pain,ROM,Strength,Balance, Coordination,Bed Mobility, Transfers,Gait,Activity Tolerance Progress Towards Goals Slow Progress due to Pain,Slow Progress due to Medical Issues,Slow Progress due to Activity Tolerance Assessment Summary Pt is a 68 y/o male presenting with a myriad of problems including five falls at home and him reporting that his left leg feels weak. He also has dysphagia per chart. Pt has a history of LTKA and his left LE has distal edema, warmth, is shiny and has discoloration. LLE diagnostics did reveal some changes in the soleus. Pt has B LE weakness that is worse when weight bearing (when spine and legs are loaded with attempted standing). His sitting balance does not appear affected. He has a large bruise on the outside of his left hip and with attempted standing x2, pt is unable to stand all the way up , tends to lock out his legs and he states that his legs would give way if he tried to stand all the way up, even with using RW. He keeps flexed at hips and LB and so PT assists in returning to bed. Pt is c/o back pain with bed mobility. Pt will benefit from ongoing PT to improve mobility and function. Goals Bed Mobility Goal Independent Transfer Goal Standby Assistance,Front Wheeled Walker Gait Goal Standby Assistance,Front Wheel Walker Gait Distance 50 Other Goals Pt will ascend and descend 3 steps with two rails to allow safe home entrance with no more than superv assistance. Days to Meet Goals 10 Frequency of Treatment Frequency Of Treatment Once a Day Treatment Plan Physical Therapy Treatment Plan Bed Mobility Training,Transfer Training,Gait Training, Therapeutic Exercise,Balance Retraining,Discharge Planning, Hot or Cold Pack,Neuromuscular Re-ed,Coordination Retraining Weight Bearing Status Weight Bearing Status Weight Bear as Tolerated Recommendations To Nursing Amount of Assist Needed Mechanical Lift Discharge Recommendations PT Discharge Recommendations SNF Rehab Transportation Needs at Discharge Wheelchair/Cabulance,Stretcher /Ambulance
--- NOTE | 2023-06-05 14:46 | DI.CT.S_ITS ---
PROCEDURE: CT LE LT W CON INDICATIONS: pain and swelling TECHNIQUE: Noncontrast 1-1.5 mm axial sections acquired from the mid-patella to the proximal tibia, with coronal and sagittal reformats. COMPARISON: None. FINDINGS: Image quality: Excellent. Bones: Patient is status post total knee arthroplasty. No fracture identified. No perihardware lucency or hardware fracture identified. Soft tissues: Diffuse soft tissue edema. Fluid collection between the gastrocnemius and the soleus along the lateral foot measuring 3 x 6 x 9 cm. Continuity of the fluid collection to the joint space cannot be established secondary to hardware artifact despite artifact reduction technique. IMPRESSION: Status post total knee arthroplasty. Fluid collection within the lateral leg difficult to delineate if there is continuity to the joint space secondary to metallic artifact. This may represent postoperative seroma, hematoma, or abscess. Dictated by: Andrea Presley M.D. on 06/05/2023 at 15:22 Approved by: Andrea Presley M.D. on 06/05/2023 at 15:27
--- NOTE | 2023-06-05 16:06 | CM.DPNOTE ---
DCP Note DATA SOLUTIONS ARCHITECT reviewed EMR. Per RN, pt has been marnie to transfer. On room air. Per PT, rec SNF placement at this time. DATA SOLUTIONS ARCHITECT met with pt in room. Pt resting in bed. Pt reports still wanting to dc home with family. Recognizes that he is unable to move at baseline at this time. Agreeable to allow this DATA SOLUTIONS ARCHITECT to place SNF referral, preference is place in [place]. Pt reports main concern is work excuse letter. DATA SOLUTIONS ARCHITECT/provider completed work excuse letter and return it to pt at bedside. DATA SOLUTIONS ARCHITECT will have Tomas review pt's case Tuesday. Plan; home with family vs SNF placement, DCP continues to unfold. PASRR needed. CM team will continue to follow closely. NEWTON Gomez
[2023-06-05] MEDS: LORATADINE 10 MG TABLET PO (16:46)
[2023-06-06] VITALS (17 sets, daily range): BP systolic 135–160; BP diastolic 69–88; PULSE 77–146; RESP 20–30; TEMP 37–37.4; O2SAT 92–97
[2023-06-06 04:47] LABS: Add Manual Diff / Slide Review NO; Basophils Absolute Auto 0 /uL (0-100); Basophils Percent Auto 0.4 % (0-2); Eosinophils Absolute Auto 100 /uL (0-450); Eosinophils Percent Auto 0.6 % (2-4); Hematocrit 29.4 % (41-53); Lymphocytes Absolute Auto 1100 /uL (1100-4500); Lymphocytes Percent Auto 9.4 % (25-40); Mean Corpuscular HGB Conc 33.9 % (30-36); Mean Corpuscular Hemoglobin 30.7 PG (26-34); Mean Corpuscular Volume 90.7 fL (80-100); Monocytes Absolute Auto 1000 /uL (0-900); Neutrophils Absolute Auto 9900 /uL (1500-7000); Neutrophils Percent Auto 81.6 % (50-75); Platelet Count 191 X10^3/uL (150-400); Red Blood Cell Count 3.24 X10^6/uL (4.5-5.9); Red Cell Distribution Width 14.3 % (11.6-14.8); White Blood Cell Count 12.1 X10^3/uL (4.5-11.0)
[2023-06-06 05:04] LABS: BUN Creatinine Ratio 37.2 (6-22); Blood Urea Nitrogen 35 mg/dL (9-20); Calcium 9.3 mg/dL (8.4-10.2); Carbon Dioxide 26 mmol/L (22-32); Chloride 111 mmol/L (98-107); Estimated Glomerular Filt Rate > 60 mL/min (>60); Glucose 111 mg/dL (80-110); HEMOLYSIS < 15 (0-50); Sodium 142 mmol/L (137-145)
--- NOTE | 2023-06-06 07:38 | P.PN_ITS ---
Subjective Subjective Date Patient Seen: 06/06/23 Time Patient Seen: 16:30 Interval history: Per Dr Holley, IR drained fluid collection in calf and got about 20 mLs of purulent material; unable to express entire collection. GS showed scant GPCs; cultures pending. Currently on ceftriaxone and vancomycin. Pt resting comfortably, unsure when exactly his leg swelling started, but does reiterate recent history of frequent falls. Exam Vital Signs (past 8 hours): - 06/06/23 00:00 06/06/23 04:00 Temperature 98.7 F 98.7 F Pulse Rate 77 101 H Respiratory Rate 24 22 Blood Pressure 140/69 149/88 H Pulse Oximetry 94 95 Oxygen Delivery Method Room Air Oxygen Flow Rate 0 Narrative Exam Narrative: Left lower leg is swollen, erythematous, and warm from just distal to knee to proximal to ankle. No erythema or swelling about the knee itself. No ankle or foot swelling noted. 3+ pitting edema in calf. Erythema improves slightly with raising leg. 5/5 PF; 5/5 DF, but passive DF is painful. RLE negative for swelling, erythema, or warmth. Objective Labs 06/06/23 03:54 06/06/23 03:54 Labs: Laboratory Results - last 24 hr 06/06/23 03:54 WBC 12.1 H RBC 3.24 L Hgb 10.0 L Hct 29.4 L MCV 90.7 MCH 30.7 MCHC 33.9 RDW 14.3 Plt Count 191 Neut % (Auto) 81.6 H Lymph % (Auto) 9.4 L [place] % (Auto) 8.0 Eos % (Auto) 0.6 L Baso % (Auto) 0.4 Neut # (Auto) 9900 H Lymph # (Auto) 1100 [place] # (Auto) 1000 H Eos # (Auto) 100 Baso # (Auto) 0 Sodium 142 Potassium 4.0 Chloride 111 H Carbon Dioxide 26 BUN 35 H Creatinine 0.94 Estimated GFR > 60 BUN/Creatinine Ratio 37.2 H Glucose 111 H Calcium 9.3 PFSH Medical History Chronic, continuous use of opioids Iron deficiency anemia following bariatric surgery BPH w/o urinary obs/LUTS DDD (degenerative disc disease), lumbar Pacemaker Allergic rhinitis Obstructive sleep apnea, adult Obesity (BMI 30-39.9) Hyperlipidemia Fatigue due to sleep pattern disturbance GERD (gastroesophageal reflux disease) 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) Left inguinal hernia Chronic kidney disease (CKD) stage G3a/A1, moderately decreased glomerular filtration rate (GFR) between 45-59 mL/min/1.73 square meter and albuminuria creatinine ratio less than 30 mg/g Atrial fibrillation Surgical History (Updated 06/06/23 @ 07:38 by Oralia Rushing PA-C) H/O total knee replacement H/O left inguinal hernia repair History of cholecystectomy H/O gastric bypass Family History Family/Other Loud snoring Dementia Father Loud snoring Obesity Hypertension Heart disease Mother Loud snoring Obesity Hypertension Depression Anxiety Family/Other Hypertension Depression Social History household members: spouse and children Smoking Status: Never smoker alcohol intake: never Assessment & Plan Assessment and plan (1) H/O total knee replacement: Status: Acute Plan: - Pt was scheduled to see Dr Farhan Garcia in the office today for evaluation of his left knee pain following TKA; that appointment will be rescheduled. - In terms of left calf swelling and fluid collection, Dr Solitario is planning I&D of presumed abscess tomorrow around 1700. Will make pt NPO after 0800 on 06/06. - Pradaxa continues to be held in the event that pt requires esophageal dilation for dysphagia. - Of note, pt is on pain contract w/ [facility]. Plan . Quality VTE Deep Vein Thrombosis/Pulmonary Embolism Present on Admission: No
--- NOTE | 2023-06-06 08:13 | DI.US.S_ITS ---
PROCEDURE: US NEEDLE ASPIRATION INDICATIONS: FLUID COLLECTION LEFT LATERAL LEG TECHNIQUE: The indications, alternatives, benefits, risks, and complications of the procedure were explained to the patient. Written informed consent was obtained and placed in the chart. The area of interest was examined sonographically and a site was chosen for ultrasound guided percutaneous sampling. The skin was prepared and draped in the usual fashion, and anesthetized with 1% lidocaine infiltrated from the skin down to the lesion. An 18 gauge needle was advanced into the targeted fluid cavity under ultrasound guidance. The fluid content was aspirated and sent to the laboratory for analysis. The needle was then withdrawn. A bandage was applied to the area of access at completion of the study. COMPARISON: [facility], CT, CT LE LT WO CON, 06/05/2023, 15:32. FINDINGS: Location(s) of lesion(s) sampled: 15 mL purulent fluid collection [place]: 25 gauge hypodermic needles. Number of passes: 1 Medications: 1% lidocaine for local anaesthesia. Complications: None. IMPRESSION: Successful ultrasound-guided aspiration of an abscess. Sample was sent to the laboratory for analysis (ordered by referring physician). Dictated by: Juan Manuel Sullivan M.D. on 06/07/2023 at 8:04 Approved by: Juan Manuel Sullivan M.D. on 06/07/2023 at 8:07
--- NOTE | 2023-06-06 08:15 | PT.IPTN ---
Current Diagnoses Acute on chronic diastolic (congestive) heart failure (06/03/23) Physical Therapy Treatment Note M2 PT-IP Current Condition Start: 06/05/23 09:28 Freq: NEEDED Status: Active Protocol: Document 06/05/23 12:05 MB (Rec: 06/05/23 13:03 MB [id number]) Physical Therapy Current Condition Current Condition Evaluation Date 06/05/23 Treatment Diagnosis Five falls at home, LLE edema and pain, dysphagia M3 PT-IP Subjective Start: 06/05/23 09:28 Freq: NEEDED Status: Active Protocol: Document 06/06/23 07:44 MB (Rec: 06/06/23 08:15 MB [id number]) Subjective Physical Therapy Visit Type Type Treatment Note Visit Start Time 07:44 Visit Stop Time 08:07 Notes Pt with increased HR up to 200 BPM with short mobility today , up to 152 BPM with mobility with PT last date and PT is documenting for both dates in this space. Nsg is nearby and it is not determined if true vtach. Number of GUARD CHIEF Visits 0 Physical Therapy Visit Comments Patient Comments Pt reports that his left leg is still bothering him. Therapy Pain Assessment Pain When Pain Assessed At Rest Pain Present Pain Present Pain Reported Location Left Knee Description Chronic,Tightness,With Movement Pain Behaviors Facial Grimacing,Guarding Pain Management Techniques Distraction,Modification of Treatment,Re-positioning M4 PT-IP Mobility and Gait Start: 06/05/23 09:28 Freq: NEEDED Status: Active Protocol: Document 06/06/23 07:44 MB (Rec: 06/06/23 08:15 MB [id number]) PT-Bed Mobility Assessment Supine to Sit Supine to Sit Minimal Assistance,1 Person Assistance,Head of Bed Elevated,Bedrails Scooting Scooting to Edge of Bed Contact Guard Assistance PT-Transfer Assessment Sit to and From Stand Sit to and from Stand Moderate Assistance,1 Person Assistance,Use of Upper Extremities Equipment Transfer Assistive Device Gait Belt,Front Wheeled Walker Orthotic/Prosthetic Devices or Brace: No Transfers Transfer Destination Chair Transfer Technique Stand Pivot Transfer Ability Level of Assist Maximum Assistance,2 Person Assistance,Use of Upper Extremities Comments Mobility Comments Pt con't to require cues for standing better upright. He naturally does not bear much weight through left leg and tends to perform TDWB d/t pain in the left foot and cues to pivot on the right foot and push through walker and pt has trouble following commands. Chair positioned directly to his right. LLE appears the same today. PT-Balance Assessment Sitting Balance and Reactions Static Sitting Balance Ability Fair Dynamic Sitting Balance Ability Fair Standing Balance and Reactions Static Standing Balance Ability Poor Dynamic Standing Balance Ability Poor Device Used RW M5 PT-IP Objective Assessments Start: 06/05/23 09:28 Freq: NEEDED Status: Active Protocol: Document 06/05/23 12:05 MB (Rec: 06/05/23 13:03 MB [id number]) Orientation Orientation/Cognition Level of Alertness Alert Orientation Name,Age,Birthday,Month,Date, Year,Day of Week,Place, Situation Language Function Ability No Deficits Noted Safety Awareness Decreased Safety Awareness Memory Description No Deficits Noted Gross Range of Motion Upper Extremity ROM Assessment Within Functional Limits Lower Extremity ROM Assessment Left Impaired Strength Upper Extremity Strength Assessment Within Functional Limits Lower Extremity Strength Assessment Left Impaired Comments Strength Comments Pt cannot tolerate MMT LLE and in supine, he has trouble following MMT commands for right LE but in supine, great toe extension is grossly 3+/5, knee extension is grossly 4/5 and he appears functionally weaker in right hip with standing Coordination Assessment Gross Coordination Gross Coordination Impaired M6 PT-IP Treatment Start: 06/05/23 09:28 Freq: NEEDED Status: Active Protocol: Document 06/06/23 07:44 MB (Rec: 06/06/23 08:15 MB [id number]) Physical Therapy Treatment Education Education Provided Safety M7 PT-IP Assessment and Plan Start: 06/05/23 09:28 Freq: NEEDED Status: Active Protocol: Document 06/06/23 07:44 MB (Rec: 06/06/23 08:15 MB [id number]) PT Summary Assessment and Plan Potential Rehabilitation Potential Fair Status of Condition at Evaluation Evolving Summary Impairments Pain,ROM,Strength,Balance, Coordination,Bed Mobility, Transfers,Gait,Activity Tolerance Progress Towards Goals Slow Progress due to Pain,Slow Progress due to Medical Issues,Slow Progress due to Activity Tolerance Assessment Summary Pt's LLE con't to present similar to last date and pt con't with high pain. HR increases with minimal mobility and increases higher this a.m. LLE CT performed last date with findings: Fluid collection within the lateral leg difficult to delineate if there is continuity to the joint space secondary to metallic artifact. This may represent postoperative seroma , hematoma, or abscess. LLE presentation is a barrier to mobility and I, will con't PT efforts to pt tolerance. Goals Bed Mobility Goal Independent Transfer Goal Standby Assistance,Front Wheeled Walker Gait Goal Standby Assistance,Front Wheel Walker Gait Distance 50 Other Goals Pt will ascend and descend 3 steps with two rails to allow safe home entrance with no more than superv assistance. Days to Meet Goals 10 Frequency of Treatment Frequency Of Treatment Once a Day Treatment Plan Physical Therapy Treatment Plan Bed Mobility Training,Transfer Training,Gait Training, Therapeutic Exercise,Balance Retraining,Discharge Planning, Hot or Cold Pack,Neuromuscular Re-ed,Coordination Retraining Weight Bearing Status Weight Bearing Status Weight Bear as Tolerated Recommendations To Nursing Amount of Assist Needed Mechanical Lift Discharge Recommendations PT Discharge Recommendations SNF Rehab Transportation Needs at Discharge Wheelchair/Cabulance,Stretcher /Ambulance
[2023-06-06] MEDS: ATORVASTATIN 20 MG TABLET 10 MG PO (08:16)
[2023-06-06] MEDS: FINASTERIDE 5 MG TABLET PO (08:19)
[2023-06-06] MEDS: DOCUSATE 100 MG CAPSULE PO ×2 (08:19→20:31)
[2023-06-06] MEDS: LIDOCAINE 5% PATCH 1 EACH TOP (08:19)
[2023-06-06] MEDS: METOPROLOL ER 50 MG TABLET PO (08:19)
[2023-06-06] MEDS: TAMSULOSIN 0.4 MG CAPSULE PO ×2 (08:20→20:32)
[2023-06-06] MEDS: PANTOPRAZOLE DR 40 MG TABLET PO (08:20)
[2023-06-06] MEDS: HYDROCODONE/ACET 10/325 TABLET 1 TAB PO ×2 (08:28→14:03)
[2023-06-06 08:55] LABS: INR 1.4 (0.9-1.3); Prothrombin Time 15.6 SECONDS (9.4-12.5)
[2023-06-06] MEDS: VANCOMYCIN 1,500 MG/300 ML PIGGYBACK 200 MG IV ×2 (10:03→21:55)
--- NOTE | 2023-06-06 10:38 | ST.IPDYTX ---
Visit Care Team Role Provider Type Natasha Carroll MD Primary Care Provider Physician Specialty: Internal Medicine Address: [place], [place], [facility] Email: Gilmer Ball MD Other Providers Physician Specialty: General Surgery Address: [address] [place] [address], [id number] Email: [email or web address] Solitario MD Other Providers Physician Specialty: Orthopedics Orthopedic Surgery Address: [address] [place] [address], [id number] Email: [email or web address] Emergency Provider Physician Referring Provider Specialty: Emergency Medicine Address: [address] [place] [address], [facility] Email: [email or web address] Tam Aguilar MD Admit Provider Physician Attending Provider Specialty: Internal Medicine Address: [address] [place] [address], [facility] Fax: Email: [email or web address] DIRECTOR OF REVENUE CYCLE MANAGEMENT Dysphagia Treatment DIRECTOR OF REVENUE CYCLE MANAGEMENT Dysphagia Treatment Start: 06/06/23 10:18 Freq: Status: Active Protocol: Document 06/06/23 10:19 CG (Rec: 06/06/23 10:38 CG [id number]) Dysphagia Treatment Session Time Visit Start Time 09:50 Visit Stop Time 10:10 Total Visit Minutes 20 Setting Assessment Location Acute Care Patient Information Subjective Observations The pt was sitting upright in hospital chair upon ST entry. Pt was awake, alert, oriented. Vocal quality was clear. Pt stated that he was able to eat cottage cheese this morning, and ate part of fruit cup. He states he didn't finish his fruit cup due to feeling full. Pt endorsed feeling of food being stuck in the region between his collarbones. Treatment Liquids Trialed Thin (IDDSI 0) Treatment Activities Pt provided DIRECTOR OF REVENUE CYCLE MANAGEMENT with access to results from esophageal testing from [facility] (manometry and pH testing), pulled up on his phone. Impressions on these GI reports indicated that the pt had an abnormally high level of acid in the esophagus and that he presented with jackhammer esophagus along with hiatal hernia. DIRECTOR OF REVENUE CYCLE MANAGEMENT briefly assisted in communicating some of these results to the pt (i.e. your esophagus is not moving and emptying the way it's supposed to, though frequently stating limited scope of understanding and recommending following up with GI to explain results. Pt's symptoms of feeling of foods building up in the chest, feeling of food being stuck between collarbones, feeling need to regurgitate, premature fullness, etc, are all consistent with esophageal/GI etiology. Explained that scope of practice within esophageal phase of the swallow is limited for imaging technologist; however, provided pt education re behavioral strategies/diet modifications to help mitigate symptoms, including: smaller meals more frequently, upright positioning at least 30 minutes after meals, soft foods, avoid cold beverages. Completed PO trials of serial sips of water via straw sip from hospital cup./ The IDDSI Framework Protocol: IDDSI.1 Assessment Patient Response to Treatment Fair Rehab Potential Fair Assessment of Improvement Trials of thin liquids (water) via serial straw sip resulted in no overt s/sx aspiration/ penetration. However, pt was observed to need to belch after each swallow, which is consistent with esophageal etiology as described above. Pt appears to be tolerated minced and moist diet, and softened texture may assist in decreasing esophageal symptoms. There are no overt clinical signs of pharyngeal phase dysfunction. Therefore, DIRECTOR OF REVENUE CYCLE MANAGEMENT reccomends defer to GI and/or hospitalist for management of esophageal dysmotility/esophageal spasm. Continue with esophageal dysphagia precautions as outlined. Recommendations Recommendations Continue Current Diet Liquids Order Thin (IDDSI 0) Diet Order Minced & Moist (IDDSI 5) Medication Recommendations One at a Time Treatment Plan Appropriate for Continued Therapy No Therapy Recommendations Defer to GI Referrals/Other Recommended Referrals GI Consult
--- NOTE | 2023-06-06 11:15 | CM.DPNOTE ---
DCP Note BUSINESS CONTINUITY MANAGEMENT DIRECTOR reviewed EMR. Per hospitalist in morning rounds, it was discovered that pt has fluid collection in calf. IR to evaluate today/tap it. Gen surg/Ortho team to follow as appropriate pending results. Plan: SNF vs home with family- pt open to [facility]. Need to make official referral if needed following post IR evaluation. CM team will follow closely. NEWTON Gomez
[2023-06-06] MEDS: cefTRIAXone 2,000 MG in SODIUM CHLORIDE 0.9% 100 ML 200 MG IV (11:42)
--- NOTE | 2023-06-06 13:28 | PC.NURSE ---
pt back to bed w/ 2 person asst; US here to do left knee aspiration
--- NOTE | 2023-06-06 13:45 | SLP.IPNOTE ---
Per Dr. Holley, okay to d/c speech order. Pt needs to follow up with GI re esophageal dysmotility concerns.
[2023-06-06] MEDS: LORATADINE 10 MG TABLET PO (17:03)
[2023-06-06] MEDS: ONDANSETRON 4 MG/2 ML INJ IV (17:32)
[2023-06-06] MEDS: HYDROMORPHONE 0.5 MG INJ IV (18:18)
--- NOTE | 2023-06-06 18:38 | PC.NURSE ---
pt had a needle aspiration on his left leg; he is scheduled for an I/D tomorrow at 1700; he has been medicated twice with po pain meds, and w/ dilaudid 0.5mg iv prior to bath this evening; he has a lidocaine patch to his left knee; he was medicated for nausea during dinner; he reports that he has not had a BM in 4 days, but feels like he may need to have one later tonight
--- NOTE | 2023-06-06 19:10 | PM.PN.1 ---
Subjective Subjective Interval history: Patient still having L leg pain, requesting oxy instead of hydrocodone. IR consulted for aspiration of fluid in leg. 20cc of pus aspirated. Ortho reconsulted for washout on 06/06. NPO at midnight. Patient happy to have this dealt with. Exam Vital Signs (past 8 hours): - 06/06/23 12:00 06/06/23 16:00 Temperature 98.6 F Pulse Rate 86 90 Respiratory Rate 23 21 Blood Pressure 135/72 149/70 H Pulse Oximetry 97 95 Oxygen Flow Rate 0 0 Oxygen Delivery Method Room Air Oxygen Flow Rate 0 Narrative Exam Narrative: NAD, alert and oriented. Fluent speech. Lungs are clear, normal rate and effort. Heart is regular, no murmur gallop or rub. Abdomen is soft, non distended. Extremities: left leg is edematous below the knee, it is warm and swollen, mildly erythematous Feet are even in color and equally warm. Objective Labs 06/06/23 03:54 06/06/23 03:54 Labs: Laboratory Results - last 24 hr 06/06/23 06/06/23 03:54 08:33 WBC 12.1 H RBC 3.24 L Hgb 10.0 L Hct 29.4 L MCV 90.7 MCH 30.7 MCHC 33.9 RDW 14.3 Plt Count 191 Neut % (Auto) 81.6 H Lymph % (Auto) 9.4 L [place] % (Auto) 8.0 Eos % (Auto) 0.6 L Baso % (Auto) 0.4 Neut # (Auto) 9900 H Lymph # (Auto) 1100 [place] # (Auto) 1000 H Eos # (Auto) 100 Baso # (Auto) 0 PT 15.6 H INR 1.4 H Sodium 142 Potassium 4.0 Chloride 111 H Carbon Dioxide 26 BUN 35 H Creatinine 0.94 Estimated GFR > 60 BUN/Creatinine Ratio 37.2 H Glucose 111 H Calcium 9.3 PFSH Medical History Chronic, continuous use of opioids Iron deficiency anemia following bariatric surgery BPH w/o urinary obs/LUTS DDD (degenerative disc disease), lumbar Pacemaker Allergic rhinitis Obstructive sleep apnea, adult Obesity (BMI 30-39.9) Hyperlipidemia Fatigue due to sleep pattern disturbance GERD (gastroesophageal reflux disease) Essential 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) Left inguinal hernia Chronic kidney disease (CKD) stage G3a/A1, moderately decreased glomerular filtration rate (GFR) between 45-59 mL/min/1.73 square meter and albuminuria creatinine ratio less than 30 mg/g Atrial fibrillation Surgical History (Updated 06/06/23 @ 07:38 by Oralia Rushing PA-C) H/O total knee replacement H/O left inguinal hernia repair History of cholecystectomy H/O gastric bypass Family History Family/Other Loud snoring Dementia Father Loud snoring Obesity Hypertension Heart disease Mother Loud snoring Obesity Hypertension Depression Anxiety Family/Other Hypertension Depression Social History household members: spouse and children Smoking Status: Never smoker alcohol intake: never Assessment & Plan Assessment & Plan narrative: 1. Left lateral leg cellulitis and abscess, present on admission and active. -continue Abx. Rocephin and vanc. -s/p IR aspiration of 20cc of pus, f/up gram stain and culture -NPO at midnight for I&D with ortho on 06/06 -oxy 10mg q4h due to pain, which is what patient uses at home. Plus dilaudid IV PRN. 2. Acute on chronic diastolic heart failure, present on admission and improved. -peripheral edema, pulm edema on CXR, BNP elevated -echo with EF 60-65%, worsened mild , mod TR -hold diuresis for now 3. Acute kidney injury, present on admission and resolved -Presented with creatinine 3.81, baseline between 1.1?1.5. Most likely intrinsic due to frequent NSAID use. -monitor renal function closely. -Cr now normalized 4. Frequent falls due to L knee pain with effusion. Present on admission and active. -See ortho notes. No concern for infection. -PT and OT evaluation. Fall precaution. Pain medications as needed. -resumed lidocaine patch to knee. -may need SNF, but most of difficulty ambulating due to pain in L leg 5. Dysphagia with regurgitation, chronic and active. -patient notes food stuck in his esophagus for the past week, has history of dysphagia -hold pradaxa if dilation needed -delay EGD until outpatient. -speech therapy evaluation. Diet as tolerated. 6. A-fib with RVR, present on admission and improved. -The patient was given diltiazem 10 mg IV in the ED. HR now improved to 90's. -Restarted metoprolol, held Pradaxa due I&D. Telemetry -increase metoprolol to 50 b.i.d. for rate control. 7. Hyperlipidemia. Present on admission and active. - Restart Lipitor and check lipids 8. GERD. Present on admission and active. - Restart pantoprazole 9. BPH. Present on admission and active. -Restart Flomax Dispo: May need SNF due to falls. 2 days following I&D and culture results. Quality VTE Deep Vein Thrombosis/Pulmonary Embolism Present on Admission: No
[2023-06-06] MEDS: ACETAMINOPHEN 325 MG TABLET 650 MG PO (20:32)
[2023-06-06] MEDS: MELATONIN 3 MG TABLET 6 MG PO (20:32)
[2023-06-06] MEDS: OXYCODONE IR 5 MG TABLET 10 MG PO (22:05)
[2023-06-07] VITALS (48 sets, daily range): BP systolic 132–158; BP diastolic 52–87; PULSE 76–115; RESP 13–29; TEMP 36.5–37.3; O2SAT 91–98; BMI 41.4
[2023-06-07] MEDS: OXYCODONE IR 5 MG TABLET 10 MG PO ×4 (02:58→20:06)
[2023-06-07] MEDS: ACETAMINOPHEN 325 MG TABLET 650 MG PO ×2 (02:59→20:09)
[2023-06-07 04:47] LABS: Add Manual Diff / Slide Review NO; Basophils Absolute Auto 100 /uL (0-100); Eosinophils Absolute Auto 100 /uL (0-450); Eosinophils Percent Auto 0.9 % (2-4); Hematocrit 28.6 % (41-53); Hemoglobin 9.6 g/dL (13.5-17.5); Lymphocytes Absolute Auto 900 /uL (1100-4500); Lymphocytes Percent Auto 6.9 % (25-40); Mean Corpuscular HGB Conc 33.5 % (30-36); Mean Corpuscular Hemoglobin 30.7 PG (26-34); Mean Corpuscular Volume 91.7 fL (80-100); Monocytes Absolute Auto 900 /uL (0-900); Monocytes Percent Auto 6.9 % (3-14); Neutrophils Absolute Auto 10800 /uL (1500-7000); Neutrophils Percent Auto 84.3 % (50-75); Platelet Count 220 X10^3/uL (150-400); Red Blood Cell Count 3.11 X10^6/uL (4.5-5.9); Red Cell Distribution Width 14.7 % (11.6-14.8); White Blood Cell Count 12.8 X10^3/uL (4.5-11.0)
[2023-06-07 04:56] LABS: BUN Creatinine Ratio 32.9 (6-22); Blood Urea Nitrogen 26 mg/dL (9-20); Calcium 9.3 mg/dL (8.4-10.2); Carbon Dioxide 26 mmol/L (22-32); Chloride 113 mmol/L (98-107); Estimated Glomerular Filt Rate > 60 mL/min (>60); Glucose 117 mg/dL (80-110); HEMOLYSIS < 15 (0-50); Potassium 4.2 mmol/L (3.4-5.1); Sodium 141 mmol/L (137-145)
[2023-06-07 05:32] LABS: Erythrocyte Sedimentation Rate 48 MM/HR (0-15)
--- NOTE | 2023-06-07 07:51 | P.PN_ITS ---
Subjective Subjective Interval history: Less leg pain. No chest pain or dyspnea. No nausea. Slept well. Exam Vital Signs (past 8 hours): - 06/06/23 23:59 06/07/23 04:00 Temperature 99.2 F Pulse Rate 97 H 98 H Respiratory Rate 20 16 Blood Pressure 153/80 H 141/65 H Pulse Oximetry 93 98 Oxygen Delivery Method Room Air Oxygen Flow Rate 0 Narrative Exam Narrative: NAD, alert and oriented. Fluent speech. Lungs are clear, normal rate and effort. Heart is regular, no murmur gallop or rub. Abdomen is soft, non distended. Extremities:left leg is swollen, not red. Slightly warm and tender laterally below knee. Objective Labs 06/07/23 04:12 06/07/23 04:12 Labs: Laboratory Results - last 24 hr 06/06/23 06/07/23 08:33 04:12 WBC 12.8 H RBC 3.11 L Hgb 9.6 L Hct 28.6 L MCV 91.7 MCH 30.7 MCHC 33.5 RDW 14.7 Plt Count 220 Neut % (Auto) 84.3 H Lymph % (Auto) 6.9 L [place] % (Auto) 6.9 Eos % (Auto) 0.9 L Baso % (Auto) 1.0 Neut # (Auto) 98245 H Lymph # (Auto) 900 L [place] # (Auto) 900 Eos # (Auto) 100 Baso # (Auto) 100 ESR 48 H PT 15.6 H INR 1.4 H Sodium 141 Potassium 4.2 Chloride 113 H Carbon Dioxide 26 BUN 26 H Creatinine 0.79 Estimated GFR > 60 BUN/Creatinine Ratio 32.9 H Glucose 117 H Calcium 9.3 C-Reactive Protein 22.0 H PFSH Medical History Chronic, continuous use of opioids Iron deficiency anemia following bariatric surgery BPH w/o urinary obs/LUTS DDD (degenerative disc disease), lumbar Pacemaker Allergic rhinitis Obstructive sleep apnea, adult Obesity (BMI 30-39.9) Hyperlipidemia Fatigue due to sleep pattern disturbance GERD (gastroesophageal reflux disease) Essential hypertension 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 (08/25/20) Left inguinal hernia Chronic kidney disease (CKD) stage G3a/A1, moderately decreased glomerular filtration rate (GFR) between 45-59 mL/min/1.73 square meter and albuminuria creatinine ratio less than 30 mg/g Atrial fibrillation Surgical History H/O total knee replacement H/O left inguinal hernia repair History of cholecystectomy H/O gastric bypass Family History Family/Other Loud snoring Dementia Father Loud snoring Obesity Hypertension Heart disease Mother Loud snoring Obesity Hypertension Depression Anxiety Family/Other Hypertension Depression Social History household members: spouse and children Smoking Status: Never smoker alcohol intake: never Assessment & Plan Assessment & Plan narrative: 1. Left lateral leg cellulitis and abscess, present on admission and active. -continue Abx. Rocephin and Vanc. -s/p IR aspiration of 20cc of pus, f/up gram stain and culture -NPO at midnight for I&D with ortho on 06/06 -oxy 10mg q4h due to pain, which is what patient uses at home. Plus dilaudid IV PRN. 2. Acute on chronic diastolic heart failure, present on admission and improved. -peripheral edema, pulm edema on CXR, BNP elevated -echo with EF 60-65%, worsened mild , mod TR -hold diuresis for now, resume in a day or so. 3. Acute kidney injury, present on admission and resolved -Presented with creatinine 3.81, baseline between 1.1?1.5. Most likely intrinsic due to frequent NSAID use. -monitor renal function closely. -Cr now normalized, monitor. 4. Frequent falls due to L knee pain with effusion. Present on admission and active. -See ortho notes. No concern for infection. -PT and OT evaluation. Fall precaution. Pain medications as needed. -resumed lidocaine patch to knee. -may need SNF, but most of difficulty ambulating due to pain in L leg 5. Dysphagia with regurgitation, chronic and active. -patient notes food stuck in his esophagus for the past week, has history of dysphagia -hold pradaxa if dilation needed -delay EGD until outpatient. -speech therapy evaluation. Diet as tolerated. 6. A-fib with RVR, present on admission and improved. -The patient was given diltiazem 10 mg IV in the ED. HR now improved to 90's. -Restarted metoprolol, held Pradaxa due I&D. Telemetry -increased metoprolol to 50 b.i.d. for rate control. 7. Hyperlipidemia. Present on admission and active. - Restart Lipitor and check lipids 8. GERD. Present on admission and active. - Restart pantoprazole 9. BPH. Present on admission and active. -Restart Flomax DISPO: [facility], however timing and exact plan will be contingent upon findings at incision and drainage today. Quality VTE Deep Vein Thrombosis/Pulmonary Embolism Present on Admission: No
--- NOTE | 2023-06-07 09:22 | CM.DPNOTE ---
DCP Note OUTSOLE COMPRESSOR reviewed EMR. Per provider notes, I&D with ortho planed for 06/06 on left leg for cellulitis/abscess.. Therapy team likely to re-evaluate for dcp rec post op. Current rec pre-op is SNF placement. During previous DCP conversations, pt preference is to dc home but preference for SNF placement at this time is [facility]. If SNF, PASRR needed. CM team will follow closely for DCP recs following post-op. Plan: home with family vs [facility]/SNF. CM team will follow closely for dc abx needs/wound care needs. NEWTON Gomez
[2023-06-07] MEDS: FINASTERIDE 5 MG TABLET PO (09:28)
[2023-06-07] MEDS: METOPROLOL ER 50 MG TABLET PO (09:28)
[2023-06-07] MEDS: PANTOPRAZOLE DR 40 MG TABLET PO (09:29)
[2023-06-07] MEDS: TAMSULOSIN 0.4 MG CAPSULE PO ×2 (09:29→22:21)
[2023-06-07] MEDS: DOCUSATE 100 MG CAPSULE PO ×2 (09:29→20:10)
[2023-06-07] MEDS: ATORVASTATIN 20 MG TABLET 10 MG PO (09:29)
[2023-06-07] MEDS: VANCOMYCIN 1,500 MG/300 ML PIGGYBACK 200 MG IV ×2 (09:33→22:22)
[2023-06-07] MEDS: cefTRIAXone 2,000 MG in SODIUM CHLORIDE 0.9% 100 ML 200 MG IV (11:25)
--- NOTE | 2023-06-07 13:24 | PT.IPTN ---
Current Diagnoses Acute on chronic diastolic (congestive) heart failure (06/03/23) Presence of unspecified artificial knee joint (06/03/23) Surgery Performed Operation Date: 06/07/23 17:30 <No data on this case meets the specified criteria> Physical Therapy Treatment Note M2 PT-IP Current Condition Start: 06/05/23 09:28 Freq: NEEDED Status: Active Protocol: Document 06/07/23 13:03 SP (Rec: 06/07/23 13:43 SP [id number]) Physical Therapy Current Condition Current Condition Evaluation Date 06/05/23 Treatment Diagnosis Five falls at home, LLE edema and pain, dysphagia M3 PT-IP Subjective Start: 06/05/23 09:28 Freq: NEEDED Status: Active Protocol: Document 06/07/23 13:03 SP (Rec: 06/07/23 13:43 SP [id number]) Subjective Physical Therapy Visit Type Type Treatment Note Visit Start Time 13:03 Visit Stop Time 13:24 Notes Pt's vitals: supine BP LUE 151/72 HR 84-90 BPM SaO2 96% on RA seated post bed mob: HR 84-102 bpm, SaO2 mid/high 90s. Number of CHEMICAL ENGINEER Visits 0 Physical Therapy Visit Comments Patient Comments Pt agreeable to trial mobility but reports declined pain med earlier for L calf. Therapy Pain Assessment Pain When Pain Assessed During Mobility Pain Present Pain Present Pain Reported Location L calf Intensity 8 Scale Used Numeric (0 - 10) Description Aching,Tender,Tightness,With Movement Pain Behaviors Facial Grimacing,Guarding, Holding Area,Restlessness Pain Management Techniques Distraction,Modification of Treatment,Re-positioning Left Knee Intensity 8 Scale Used Numeric (0 - 10) Description Aching,Tender,Tightness,With Movement Pain Behaviors Facial Grimacing,Guarding, Holding Area,Restlessness Pain Management Techniques Distraction,Modification of Treatment,Re-positioning M4 PT-IP Mobility and Gait Start: 06/05/23 09:28 Freq: NEEDED Status: Active Protocol: Document 06/07/23 13:03 SP (Rec: 06/07/23 13:43 SP [id number]) PT-Bed Mobility Assessment Supine to Sit Supine to Sit Contact Guard Assistance, Minimal Assistance,1 Person Assistance,Head of Bed Elevated,Bedrails Sit to Supine Sit to Supine Moderate Assistance,1 Person Assistance,Bedrails Scooting Scooting to Edge of Bed Contact Guard Assistance PT-Transfer Assessment Sit to and From Stand Sit to and from Stand Maximum Assistance,2 Person Assistance,Use of Upper Extremities Equipment Transfer Assistive Device Gait Belt,Front Wheeled Walker Orthotic/Prosthetic Devices or Brace: No Transfers Transfer Destination Bed Transfer Technique lateral scoot up EOB Transfer Ability Level of Assist Maximum Assistance,2 Person Assistance,Use of Upper Extremities Comments Mobility Comments Pt more even vitals, HR monitor noted Afib seated at EOB briefly. Improved decrease assist with bed CG/Min A sup> sit, Mod A for BLE support back into bed, self centering. He uses of bed rail of which doesn't have at home Attempted STS but unable due to R LE not able support him and L calf pain 8/10 reported. Pt able to laterally scoot up EOB with Mod/Max A initially 2 person then only 1 person needed with ed lean fwd and repositioning BUEs/RLE. Pt not tolerated WB into LLE at this time. Pt was inclined back to 40deg in bed before left, all needs in reach. Gait Assessment Comments Gait Comments Unable to assess progress into standing due to LLE pain and unableto WB into RLE this tx, only lateral scoot up EOB. Stair Climbing Assessment Comments Stair Climbing Comments Unable to assess due to pain LLE and unabel WB into RLE. He has 5 steps to enter home to assess when able. PT-Balance Assessment Sitting Balance and Reactions Static Sitting Balance Ability Fair Dynamic Sitting Balance Ability Fair Standing Balance and Reactions Static Standing Balance Ability Poor Dynamic Standing Balance Ability Poor Device Used RW M5 PT-IP Objective Assessments Start: 06/05/23 09:28 Freq: NEEDED Status: Active Protocol: Document 06/05/23 12:05 MB (Rec: 06/05/23 13:03 MB [id number]) Orientation Orientation/Cognition Level of Alertness Alert Orientation Name,Age,Birthday,Month,Date, Year,Day of Week,Place, Situation Language Function Ability No Deficits Noted Safety Awareness Decreased Safety Awareness Memory Description No Deficits Noted Gross Range of Motion Upper Extremity ROM Assessment Within Functional Limits Lower Extremity ROM Assessment Left Impaired Strength Upper Extremity Strength Assessment Within Functional Limits Lower Extremity Strength Assessment Left Impaired Comments Strength Comments Pt cannot tolerate MMT LLE and in supine, he has trouble following MMT commands for right LE but in supine, great toe extension is grossly 3+/5, knee extension is grossly 4/5 and he appears functionally weaker in right hip with standing Coordination Assessment Gross Coordination Gross Coordination Impaired M6 PT-IP Treatment Start: 06/05/23 09:28 Freq: NEEDED Status: Active Protocol: Document 06/07/23 13:03 SP (Rec: 06/07/23 13:43 SP [id number]) Physical Therapy Treatment Education Education Provided Weight Bearing Status,Safety M7 PT-IP Assessment and Plan Start: 06/05/23 09:28 Freq: NEEDED Status: Active Protocol: Document 06/07/23 13:03 SP (Rec: 06/07/23 13:43 SP [id number]) PT Summary Assessment and Plan Potential Rehabilitation Potential Fair Status of Condition at Evaluation Evolving Summary Impairments Pain,ROM,Strength,Balance, Coordination,Bed Mobility, Transfers,Gait,Activity Tolerance Progress Towards Goals Slow Progress due to Pain,Slow Progress due to Medical Issues,Slow Progress due to Activity Tolerance Assessment Summary Pt unable completely WB into RLE weakness and pain in LLE not able to put any wt onto floor. CG/Min A sup>sit, Mod A sit>supine for BUE support. Max A x1-2 lateral scoot up EOB this tx. WIll continue to assess progress. Having surgery later this evening. Goals Bed Mobility Goal Independent Transfer Goal Standby Assistance,Front Wheeled Walker Gait Goal Standby Assistance,Front Wheel Walker Gait Distance 50 Other Goals Pt will ascend and descend 3 steps with two rails to allow safe home entrance with no more than superv assistance. Days to Meet Goals 10 Frequency of Treatment Frequency Of Treatment Once a Day Treatment Plan Physical Therapy Treatment Plan Bed Mobility Training,Transfer Training,Gait Training, Therapeutic Exercise,Balance Retraining,Discharge Planning, Hot or Cold Pack,Neuromuscular Re-ed,Coordination Retraining Other Recommendations and Next Treatment standing tolerance, transfers, Focus gait if able. Will progress stair mgt 2+5 stairs if safe/ able to WB. Weight Bearing Status Weight Bearing Status Weight Bear as Tolerated Recommendations To Nursing Amount of Assist Needed 2 Person Assist Discharge Recommendations PT Discharge Recommendations SNF Rehab Transportation Needs at Discharge Wheelchair/Cabulance,Stretcher /Ambulance
--- NOTE | 2023-06-07 17:56 | PM.PREOP ---
Pre-operative Note Interval Note History & Physical reviewed/Exam performed by Physician: Yes Changes to H&P: No
--- NOTE | 2023-06-07 17:59 | SUR.OPER ---
Lateral on a al bag, head on pillow, gel axillary roll in place, bottom leg bent with gel pad under knee to foot, upper leg straight and supported with pillows. Upper arm supported by pillows and secured over bottom arm to padded arm board. Safety belt at hip, tape over blanket lower legs.
--- NOTE | 2023-06-07 18:05 | P.PN_ITS ---
Subjective Subjective Interval history: Patient with a history of swelling to his left leg. Imaging studies did not show any signs of an infection involving his knee joint. Patient had a interventional radiology aspiration of his calf which did produce purulent material. Due to this fact we do recommend a I&D of his left lower leg Exam Vital Signs (past 8 hours): - 06/07/23 13:00 06/07/23 17:23 Temperature 97.7 F Pulse Rate 112 H 79 Respiratory Rate 20 20 Blood Pressure 151/52 H 153/87 H Pulse Oximetry 97 Oxygen Delivery Method Room Air Oxygen Delivery Method Room Air Oxygen Flow Rate 0 Narrative Exam Narrative: On physical exam swelling to the left lower leg but no sign of any purulent drainage. No obvious sign of any fluid filled mass or abscessed to the lateral and posterior aspect of his calf. Positive dorsiflexion and plantar flexion of the toes and ankle. Palpable pulses. No sign of any infectious process involving the knee joint. Objective Labs 06/07/23 04:12 06/07/23 04:12 Labs: Laboratory Results - last 24 hr 06/07/23 04:12 WBC 12.8 H RBC 3.11 L Hgb 9.6 L Hct 28.6 L MCV 91.7 MCH 30.7 MCHC 33.5 RDW 14.7 Plt Count 220 Neut % (Auto) 84.3 H Lymph % (Auto) 6.9 L [place] % (Auto) 6.9 Eos % (Auto) 0.9 L Baso % (Auto) 1.0 Neut # (Auto) 05668 H Lymph # (Auto) 900 L [place] # (Auto) 900 Eos # (Auto) 100 Baso # (Auto) 100 ESR 48 H Sodium 141 Potassium 4.2 Chloride 113 H Carbon Dioxide 26 BUN 26 H Creatinine 0.79 Estimated GFR > 60 BUN/Creatinine Ratio 32.9 H Glucose 117 H Calcium 9.3 C-Reactive Protein 22.0 H PFSH Medical History Chronic, continuous use of opioids Iron deficiency anemia following bariatric surgery BPH w/o urinary obs/LUTS DDD (degenerative disc disease), lumbar Pacemaker Allergic rhinitis Obstructive sleep apnea, adult Obesity (BMI 30-39.9) Hyperlipidemia Fatigue due to sleep pattern disturbance GERD (gastroesophageal reflux disease) 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) Left inguinal hernia Chronic kidney disease (CKD) stage G3a/A1, moderately decreased glomerular filtration rate (GFR) between 45-59 mL/min/1.73 square meter and albuminuria creatinine ratio less than 30 mg/g Atrial fibrillation Surgical History H/O total knee replacement H/O left inguinal hernia repair History of cholecystectomy H/O gastric bypass Family History Family/Other Loud snoring Dementia Father Loud snoring Obesity Hypertension Heart disease Mother Loud snoring Obesity Hypertension Depression Anxiety Family/Other Hypertension Depression Social History household members: spouse and children Smoking Status: Never smoker alcohol intake: never Assessment & Plan Assessment & Plan narrative: Patient with signs of a possible abscess collection involving the posterior aspect of his leg in the gastrocnemius. Based on the results of Interventional Radiology do recommend a irrigation and debridement of the posterior aspect of the left leg. Patient fully understands the risks limitations associated with the procedure. The risk, benefits, alternatives, possible complications, operative course, and postop outcomes were discussed. Complications including but not limiting to bleeding, infection, fracture, nerve injury, continued pain postoperatively or instability postoperatively were discussed in detail. Medical complications including but not limited to deep venous thrombosis event, anesthesia complications with excessive bleeding, vascular events or cardiac events and other possible complications were discussed in detail. Need for postoperative rehabilitation and anticipated hospital stay and clinical course were discussed in detail. Patient acknowledges understanding and elects to proceed with surgery. Quality VTE Deep Vein Thrombosis/Pulmonary Embolism Present on Admission: No
--- NOTE | 2023-06-07 19:11 | PM.OP.1 ---
Operative Date/Time/Diagnoses Date of procedure: 06/07/23 Time of procedure: 18:00 Pre-op diagnosis: Left posterior leg infection Post-op diagnosis: same Procedure & Clinicians Procedure: Irrigation and debridement of the posterior calf Same procedure as scheduled: Yes Indications: Abscess to posterior calf of the left leg Surgeon: Yared Solitario Click Yes if Unassisted: Yes Anesthesia Type: General Operative Notes Findings: Large abscess to the posterior aspect of the left calf. Knee joint was aspirated as well and fluid was sent for cultures and sensitivities. Slight cloudiness to the knee joint fluid. Significant amount of purulent material in the posterior aspect of the calf. Closure Type: primary Applied: other (Packing material) Estimated Blood Loss (mL): 5 Tourniquet time (min): 17 Procedure in detail: On date of service patient was met in the holding area where his operative site was signed and witnessed by the OR staff. Surgery was once again discussed with the patient and any remaining questions or concerns he had were answered fully. Patient was taken back to the operating theater placed on the operating table in a supine position. Great care was taken to ensure that all bony prominences were appropriately padded and a well-padded tourniquet was placed up along the upper extremity. Time-out was performed verifying patient's name procedure and operative site. Exsanguination was achieved by elevation no Esmarch was used. Tourniquet was then turned up to 250 mmHg. We initially started with an aspiration of the knee joint. 18 gauge needle was placed into the lateral aspect of the knee we are able to remove fluid which was then sent to microbiology. Did have a slight cloudy nature to it concerning for possible infection. We then turned our attention to the posterior aspect of the calf. Patient had already had a previous aspiration done by Radiology. The same area was then opened up using a 10 blade making a 5 cm incision. Once we incised through the skin and fascial tissue there was a significant drainage of purulent material. This was swabbed as well as aspirated and sent to pathology. There was a significant amount of purulence and we were able to expel from the incision. Patient had a rather large pocket that tracked both distally and proximally in the posterior aspect of the calf as well as laterally. No obvious direct communication to the knee joint. Once we felt we completely decompress the large pocket of purulent material the wound was then copiously irrigated with 3 L of saline using pulse lavage. There was no sign of any remaining purulent material. The wound was then packed and loosely closed. The leg was then cleaned, dried, and dressed and patient was taken to the PACU in stable condition. Complications: none Post-operative Condition: stable Disposition: ICU Plan for aftercare: We will need to follow up on his culture results from the posterior aspect of his calf as well as his knee aspirate. Might require additional surgery if there is truly signs of infection in the knee joint.
[2023-06-07] MEDS: LACTATED RINGERS 1,000 ML 100 ML IV (20:09)
[2023-06-07] MEDS: LOSARTAN 25 MG TABLET PO (20:09)
[2023-06-07] MEDS: SENNOSIDES 8.6 MG TABLET 17.2 MG PO (20:10)
[2023-06-07] MEDS: HYDROMORPHONE 0.5 MG INJ IV (22:22)
[2023-06-08] VITALS (8 sets, daily range): BP systolic 127–149; BP diastolic 65–77; PULSE 85–108; RESP 18–19; TEMP 36.1–37; O2SAT 95–98
[2023-06-08] MEDS: MELATONIN 3 MG TABLET 6 MG PO (01:05)
[2023-06-08] MEDS: OXYCODONE IR 5 MG TABLET 10 MG PO ×4 (01:06→23:26)
[2023-06-08] MEDS: HYDROMORPHONE 0.5 MG INJ IV (02:46)
[2023-06-08] MEDS: ACETAMINOPHEN 325 MG TABLET 650 MG PO ×4 (02:46→18:48)
[2023-06-08 05:02] LABS: Add Manual Diff / Slide Review NO; Basophils Absolute Auto 0 /uL (0-100); Basophils Percent Auto 0.3 % (0-2); Eosinophils Absolute Auto 100 /uL (0-450); Eosinophils Percent Auto 0.8 % (2-4); Hematocrit 28.5 % (41-53); Hemoglobin 9.5 g/dL (13.5-17.5); Lymphocytes Absolute Auto 1200 /uL (1100-4500); Lymphocytes Percent Auto 8.9 % (25-40); Mean Corpuscular HGB Conc 33.5 % (30-36); Mean Corpuscular Hemoglobin 30.7 PG (26-34); Mean Corpuscular Volume 91.8 fL (80-100); Monocytes Absolute Auto 900 /uL (0-900); Monocytes Percent Auto 6.6 % (3-14); Neutrophils Absolute Auto 11000 /uL (1500-7000); Neutrophils Percent Auto 83.4 % (50-75); Platelet Count 247 X10^3/uL (150-400); Red Cell Distribution Width 14.3 % (11.6-14.8); White Blood Cell Count 13.2 X10^3/uL (4.5-11.0)
[2023-06-08 05:22] LABS: BUN Creatinine Ratio 29.2 (6-22); Blood Urea Nitrogen 21 mg/dL (9-20); Calcium 9.1 mg/dL (8.4-10.2); Carbon Dioxide 26 mmol/L (22-32); Chloride 110 mmol/L (98-107); Estimated Glomerular Filt Rate > 60 mL/min (>60); Glucose 108 mg/dL (80-110); HEMOLYSIS < 15 (0-50); Potassium 4.1 mmol/L (3.4-5.1); Sodium 140 mmol/L (137-145)
--- NOTE | 2023-06-08 07:45 | P.PN_ITS ---
Subjective Subjective Date Patient Seen: 06/08/23 Time Patient Seen: 07:30 Interval history: Patient is found lying in bed. He says his knee is feeling better after the surgery and has no knee pain. He denies any fever or chills Exam Vital Signs (past 8 hours): - 06/08/23 02:30 06/08/23 02:55 06/08/23 06:30 Temperature 98.6 F 97.3 F L Pulse Rate 108 H 85 Respiratory Rate 18 Blood Pressure 149/73 H 136/77 Pulse Oximetry 95 98 Oxygen Flow Rate 0 0 Oxygen Delivery Method Room Air Oxygen Flow Rate 0 Narrative Exam Narrative: 3+ pitting edema left lower leg. Leg is cool to touch and no signs of erythema. Drain is intact. Dressing is saturated with discharge. Pulses intact. Able to dorsiflex and plantarflex against resistance at the left and right ankles. Objective Labs 06/08/23 04:39 06/08/23 04:39 Labs: Laboratory Results - last 24 hr 06/08/23 04:39 WBC 13.2 H RBC 3.10 L Hgb 9.5 L Hct 28.5 L MCV 91.8 MCH 30.7 MCHC 33.5 RDW 14.3 Plt Count 247 Neut % (Auto) 83.4 H Lymph % (Auto) 8.9 L [place] % (Auto) 6.6 Eos % (Auto) 0.8 L Baso % (Auto) 0.3 Neut # (Auto) 62971 H Lymph # (Auto) 1200 [place] # (Auto) 900 Eos # (Auto) 100 Baso # (Auto) 0 Sodium 140 Potassium 4.1 Chloride 110 H Carbon Dioxide 26 BUN 21 H Creatinine 0.72 Estimated GFR > 60 BUN/Creatinine Ratio 29.2 H Glucose 108 Calcium 9.1 PFSH Medical History Chronic, continuous use of opioids Iron deficiency anemia following bariatric surgery BPH w/o urinary obs/LUTS DDD (degenerative disc disease), lumbar Pacemaker Allergic rhinitis Obstructive sleep apnea, adult Obesity (BMI 30-39.9) Hyperlipidemia Fatigue due to sleep pattern disturbance GERD (gastroesophageal reflux disease) 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 hypertension 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) Left inguinal hernia Chronic kidney disease (CKD) stage G3a/A1, moderately decreased glomerular filtration rate (GFR) between 45-59 mL/min/1.73 square meter and albuminuria creatinine ratio less than 30 mg/g Atrial fibrillation Surgical History H/O total knee replacement H/O left inguinal hernia repair History of cholecystectomy H/O gastric bypass Family History Family/Other Loud snoring Dementia Father Loud snoring Obesity Hypertension Heart disease Mother Loud snoring Obesity Hypertension Depression Anxiety Family/Other Hypertension Depression Social History household members: spouse and children Smoking Status: Never smoker alcohol intake: never Assessment & Plan Post-op Postoperative Procedures: Procedures Operation Date: 06/07/23 17:30 Actual Procedure Side Surgeon p I&D Abscess calf Left Yared Solitario MD Postoperative plan narrative: Culture is pending. We will need to follow up on his culture results from the posterior aspect of his calf as well as his knee aspirate. Might require additional surgery if there is truly signs of infection in the knee joint. Dressing will need to be changed to day for saturation. Time Spent With Patient Time with patient: less than 15 minutes Quality VTE Deep Vein Thrombosis/Pulmonary Embolism Present on Admission: No
[2023-06-08] MEDS: DOCUSATE 100 MG CAPSULE PO ×2 (08:18→21:50)
[2023-06-08] MEDS: ATORVASTATIN 20 MG TABLET 10 MG PO (08:18)
[2023-06-08] MEDS: METOPROLOL ER 50 MG TABLET PO (08:18)
[2023-06-08] MEDS: TAMSULOSIN 0.4 MG CAPSULE PO ×2 (08:18→21:50)
[2023-06-08] MEDS: LOSARTAN 25 MG TABLET PO (08:18)
[2023-06-08] MEDS: FINASTERIDE 5 MG TABLET PO (08:18)
[2023-06-08] MEDS: polyethylene glycoL 3350 17 GM POWD.PACK PO (08:19)
[2023-06-08] MEDS: PANTOPRAZOLE DR 40 MG TABLET PO (08:19)
[2023-06-08 10:26] LABS: Vancomycin Trough 14.8 ug/mL (10-20)
[2023-06-08] MEDS: VANCOMYCIN 1,500 MG/300 ML PIGGYBACK 200 MG IV (10:40)
--- NOTE | 2023-06-08 11:07 | DIET.CONS ---
Dietary Consultation Note Admission Date: 06/03/2023 04:51 Assessment: 68 y M presenting for multiple falls. Nutrition screened for LOS. 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 CITY ENGINEER provided educ on mitigating pt's symptoms, including small freq meals, upright position post meals, softer foods. Pt reports having meals such as chicken tacos, fajitas, soups, and softer foods like cottage cheese. Pt will belch to help foods move down. Reports sometimes needing to go to restroom during eating and regurgitate food. Pt then can return to eating after regurgitation. Reports carbonated beverages and steak can cause increase in symptoms. He has experienced a slight decrease in appetite in the past 10-12 days. No weight loss per chart or pt report. 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 Discussed foods/texture that may help decrease symptoms, coordinated with unit host 2. Encouraged adequate protein intake 3. Encouraged outpatient GI f/u EER: -[id number] kcals/day (15 kcals/kg) -80-95 g protein/day (1-1.15 g/kg of adjusted IBW of 83 kg) Monitoring/Evaluations: PO, diet tolerance, weight, f/u prn Electronically Signed by: Marguerite Mcdonald 06/08/23 11:07 Clinical Dietitian [address] [id number]
--- NOTE | 2023-06-08 11:12 | PT.IPTN ---
Current Diagnoses Acute on chronic diastolic (congestive) heart failure (06/03/23) Presence of unspecified artificial knee joint (06/03/23) Surgery Performed Operation Date: 06/07/23 17:30 Actual Procedures p I&D Abscess calf(Left) - Yared Solitario MD Physical Therapy Treatment Note M2 PT-IP Current Condition Start: 06/05/23 09:28 Freq: NEEDED Status: Active Protocol: Document 06/08/23 10:47 SP (Rec: 06/08/23 11:38 SP [id number]) Physical Therapy Current Condition Current Condition Evaluation Date 06/05/23 Treatment Diagnosis Five falls at home, LLE edema and pain, dysphagia M3 PT-IP Subjective Start: 06/05/23 09:28 Freq: NEEDED Status: Active Protocol: Document 06/08/23 10:47 SP (Rec: 06/08/23 11:38 SP [id number]) Subjective Physical Therapy Visit Type Type Treatment Note Visit Start Time 10:47 Visit Stop Time 11:12 Notes Pt vitals: supine 143/67 HR 94, 96% RA Number of PSYCHIATRIC LPN Visits 1 Physical Therapy Visit Comments Patient Comments Pt agreeable to trial mobility but reports declined pain med earlier for L calf. Therapy Pain Assessment Pain When Pain Assessed During Mobility Location L calf Intensity 7 Scale Used Numeric (0 - 10) Description Aching,Sharp,Tender,With Movement Pain Management Techniques Distraction,Modification of Treatment,Re-positioning M4 PT-IP Mobility and Gait Start: 06/05/23 09:28 Freq: NEEDED Status: Active Protocol: Document 06/08/23 10:47 SP (Rec: 06/08/23 11:38 SP [id number]) PT-Bed Mobility Assessment Supine to Sit Supine to Sit Standby Assistance,Bedrails Scooting Scooting to Edge of Bed Standby Assistance PT-Transfer Assessment Sit to and From Stand Sit to and from Stand Maximum Assistance,2 Person Assistance,Use of Upper Extremities Equipment Transfer Assistive Device Gait Belt,Front Wheeled Walker Orthotic/Prosthetic Devices or Brace: No Transfers Transfer Destination Chair Transfer Technique Squat Pivot Transfer Ability Level of Assist Maximum Assistance,2 Person Assistance,Use of Upper Extremities Comments Mobility Comments SBA with HOB flat and heavy use of BUE on bed rail and bed self sup>sit, scoot EOB. Instructed heel slide and toe taps at EOB unsupported. Ed STS Max A x2 (LUE fww/RUE on bed foot board). Able to come to full stand with Max x2, static stand Max x1 for trunk support up to 45 sec while COLLAR TURNER OPERATOR changed bed pad and blankets. Pt only able to WB on RLE, unable bear wt on LLE due to pain in L calf 10/21. squat pivot transfer Max A x2 bed> chair to R side, ed reach across opp chair arm rest. PSYCHIATRIC LPN /COLLAR TURNER OPERATOR assisted IV pole and line mgt throughout tx. Assisted pt elevate BLEs in chair. Had call light and all needs in reach before left. Gait Assessment Comments Gait Comments Unable to assess progress into standing due to LLE pain and unableto WB into RLE this tx, but able progress squat pivot to chair. Stair Climbing Assessment Comments Stair Climbing Comments Unable to assess due to pain LLE calf and unable WB on LLE. He has 5 steps to enter home to assess when able. PT-Balance Assessment Sitting Balance and Reactions Static Sitting Balance Ability Fair Dynamic Sitting Balance Ability Fair Standing Balance and Reactions Static Standing Balance Ability Poor Dynamic Standing Balance Ability Poor Device Used RW M5 PT-IP Objective Assessments Start: 06/05/23 09:28 Freq: NEEDED Status: Active Protocol: Document 06/05/23 12:05 MB (Rec: 06/05/23 13:03 MB [id number]) Orientation Orientation/Cognition Level of Alertness Alert Orientation Name,Age,Birthday,Month,Date, Year,Day of Week,Place, Situation Language Function Ability No Deficits Noted Safety Awareness Decreased Safety Awareness Memory Description No Deficits Noted Gross Range of Motion Upper Extremity ROM Assessment Within Functional Limits Lower Extremity ROM Assessment Left Impaired Strength Upper Extremity Strength Assessment Within Functional Limits Lower Extremity Strength Assessment Left Impaired Comments Strength Comments Pt cannot tolerate MMT LLE and in supine, he has trouble following MMT commands for right LE but in supine, great toe extension is grossly 3+/5, knee extension is grossly 4/5 and he appears functionally weaker in right hip with standing Coordination Assessment Gross Coordination Gross Coordination Impaired M6 PT-IP Treatment Start: 06/05/23 09:28 Freq: NEEDED Status: Active Protocol: Document 06/08/23 10:47 SP (Rec: 06/08/23 11:38 SP [id number]) Physical Therapy Treatment Exercises Exercises Ankle Pumps,Seated Knee Flexion/Extension Education Education Provided Weight Bearing Status,Safety M7 PT-IP Assessment and Plan Start: 06/05/23 09:28 Freq: NEEDED Status: Active Protocol: Document 06/08/23 10:47 SP (Rec: 06/08/23 11:38 SP [id number]) PT Summary Assessment and Plan Potential Rehabilitation Potential Fair Status of Condition at Evaluation Evolving Summary Impairments Pain,ROM,Strength,Balance, Coordination,Bed Mobility, Transfers,Gait,Activity Tolerance Progress Towards Goals Slow Progress due to Pain,Slow Progress due to Medical Issues,Slow Progress due to Activity Tolerance Assessment Summary Pt progressed, SBA with heavy use UEs on bed rails bed mob, able to come to full stand stationary only Max A x2 /c FWW, stand 45 sec, seated rest , squat pivot to chair Max A x2. He is unable to WB into LLE and very weak into RLE. Discussed with pt inability stand on LLE to do stairs, gait at this time and recommending SNF for continued skilled therapy. Pt in agreement would be most beneficial, not sure son and can assist what needs at this time. Goals Bed Mobility Goal Independent Transfer Goal Standby Assistance,Front Wheeled Walker Gait Goal Standby Assistance,Front Wheel Walker Gait Distance 50 Other Goals Pt will ascend and descend 3 steps with two rails to allow safe home entrance with no more than superv assistance. Days to Meet Goals 10 Frequency of Treatment Frequency Of Treatment Once a Day Treatment Plan Physical Therapy Treatment Plan Bed Mobility Training,Transfer Training,Gait Training, Therapeutic Exercise,Balance Retraining,Discharge Planning, Hot or Cold Pack,Neuromuscular Re-ed,Coordination Retraining Other Recommendations and Next Treatment standing tolerance, transfers, Focus gait if able. Will progress stair mgt 2+5 stairs if safe/ able to WB. Weight Bearing Status Weight Bearing Status Weight Bear as Tolerated Recommendations To Nursing Amount of Assist Needed 2 Person Assist Discharge Recommendations PT Discharge Recommendations SNF Rehab Transportation Needs at Discharge Wheelchair/Cabulance
[2023-06-08] MEDS: cefTRIAXone 2,000 MG in SODIUM CHLORIDE 0.9% 100 ML 200 MG IV (12:22)
[2023-06-08 12:50] LABS: Vancomycin Peak 37.8 ug/mL (20-40)
--- NOTE | 2023-06-08 16:04 | P.PN_ITS ---
Subjective Subjective Interval history: Some sharp leg pain with ambulation, improved pain at rest. No chest pain or dyspnea. No nausea. S/p I&D with orthopedics and L knee aspiration. remains on antibiotics, awaiting cultures and hopeful that knee effusion is not infected. No cell count was sent from aspiration. Exam Vital Signs (past 8 hours): - 06/08/23 08:05 06/08/23 08:18 06/08/23 08:18 Temperature 97.8 F Pulse Rate 91 H Respiratory Rate 19 Blood Pressure 140/75 140/75 140/75 Pulse Oximetry 98 Oxygen Flow Rate 0 06/08/23 12:09 Temperature 97.6 F Pulse Rate 89 Respiratory Rate 18 Blood Pressure 127/70 Pulse Oximetry 97 Oxygen Flow Rate 0 Oxygen Delivery Method Room Air Oxygen Flow Rate 0 Narrative Exam Narrative: NAD, alert and oriented. Fluent speech. Lungs are clear, normal rate and effort. Heart is regular, no murmur gallop or rub. Abdomen is soft, non distended. Extremities:left leg is swollen, not red. Slightly warm and tender laterally below knee. Objective Labs 06/08/23 04:39 06/08/23 04:39 Labs: Laboratory Results - last 24 hr 06/08/23 06/08/23 06/08/23 04:39 09:35 12:10 WBC 13.2 H RBC 3.10 L Hgb 9.5 L Hct 28.5 L MCV 91.8 MCH 30.7 MCHC 33.5 RDW 14.3 Plt Count 247 Neut % (Auto) 83.4 H Lymph % (Auto) 8.9 L Grainger % (Auto) 6.6 Eos % (Auto) 0.8 L Baso % (Auto) 0.3 Neut # (Auto) 87305 H Lymph # (Auto) 1200 Grainger # (Auto) 900 Eos # (Auto) 100 Baso # (Auto) 0 Sodium 140 Potassium 4.1 Chloride 110 H Carbon Dioxide 26 BUN 21 H Creatinine 0.72 Estimated GFR > 60 BUN/Creatinine Ratio 29.2 H Glucose 108 Calcium 9.1 Vancomycin Peak 37.8 Vancomycin Trough 14.8 PFSH Medical History Chronic, continuous use of opioids Iron deficiency anemia following bariatric surgery BPH w/o urinary obs/LUTS DDD (degenerative disc disease), lumbar Pacemaker Allergic rhinitis Obstructive sleep apnea, adult Obesity (BMI 30-39.9) Hyperlipidemia Fatigue due to sleep pattern disturbance GERD (gastroesophageal reflux disease) 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) Left inguinal hernia Chronic kidney disease (CKD) stage G3a/A1, moderately decreased glomerular filtration rate (GFR) between 45-59 mL/min/1.73 square meter and albuminuria creatinine ratio less than 30 mg/g Atrial fibrillation Surgical History H/O total knee replacement H/O left inguinal hernia repair History of cholecystectomy H/O gastric bypass Family History Family/Other Loud snoring Dementia Father Loud snoring Obesity Hypertension Heart disease Mother Loud snoring Obesity Hypertension Depression Anxiety Family/Other Hypertension Depression Social History household members: spouse and children Smoking Status: Never smoker alcohol intake: never Assessment & Plan Assessment & Plan narrative: 1. Sepsis with FERNANDA secondary to Left lateral leg cellulitis and abscess, present on admission and active. -continue Abx. Rocephin and Vanc. -s/p IR aspiration of 20cc of pus, f/up gram stain and culture -s/p I&D with orthopedics on 06/06, with aspiration of left knee. Cultures pending. -oxy 10mg q4h due to pain, which is what patient uses at home. Plus dilaudid IV PRN. -SOFA score of >2 based on FERNANDA 2. Acute on chronic diastolic heart failure, present on admission and improved. -peripheral edema, pulm edema on CXR, BNP elevated -echo with EF 60-65%, worsened mild , mod TR -hold diuresis for now, resume in a day or so. 3. Acute kidney injury, present on admission and resolved -Presented with creatinine 3.81, baseline between 1.1?1.5. Possibly in setting of sepsis vs NSAID use. -monitor renal function closely. -Cr now normalized, monitor. 4. Frequent falls due to L knee pain with effusion. Present on admission and active. -See ortho notes. No concern for infection. -PT and OT evaluation. Fall precaution. Pain medications as needed. -resumed lidocaine patch to knee. -may need SNF, but most of difficulty ambulating due to pain in L leg 5. Dysphagia with regurgitation, chronic and active. -patient notes food stuck in his esophagus for the past week, has history of dysphagia -hold pradaxa if dilation needed -delay EGD until outpatient. -speech therapy evaluation. Diet as tolerated. 6. A-fib with RVR, present on admission and improved. -The patient was given diltiazem 10 mg IV in the ED. HR now improved to 90's. -Restarted metoprolol, held Pradaxa due I&D. Telemetry -increased metoprolol to 50 b.i.d. for rate control with improvement. Today will continue BID dosing. 7. Hyperlipidemia. Present on admission and active. - Continue home statin. 8. GERD. Present on admission and active. - Continue pantoprazole 9. BPH. Present on admission and active. -Continue Flomax DISPO: Ultimately residential facility, however timing and exact plan will be contingent upon findings at incision and drainage today. Quality VTE Deep Vein Thrombosis/Pulmonary Embolism Present on Admission: No
[2023-06-08] MEDS: LORATADINE 10 MG TABLET PO (16:06)
--- NOTE | 2023-06-08 16:23 | CM.DPNOTE ---
DCP Note HEALTH CARE ATTORNEY reviewed EMR. Per hospitalist in morning rounds, pt likely to be here another few days due to pending cultures. Per ortho notes, knee is feeling better after surg. Per ortho note, pt may require additional surgery if there is signs of infection in the knee. Per PT, continue to recommend SNF placement. May have IV abx/wound care/rehab need for SNF placement. Per previous DCP conversations, pt preference was [facility] due to proximity to home in [place]. Per Anita at [facility], their new policy with pt's insurance is needing denials within local area prior to being able to submit for auth. BRIT Minor emailed initial referral information to [facility]. Per Seble at [facility], able to accept pt. Waiting on finalizing abx plan and pt will need PICC or midline. HEALTH CARE ATTORNEY unable to review SNF placement options with pt today. PASRR needed. Plan: anticipate SNF placement. Pending abx/wound care needs. CM team will check in with pt regarding DCP options. CM team will follow closely. NEWTON Gomez
[2023-06-08] MEDS: VANCOMYCIN 1,250 MG/250 ML PIGGYBACK 200 MG IV (21:50)
[2023-06-08] MEDS: SENNOSIDES 8.6 MG TABLET 17.2 MG PO (21:50)
[2023-06-09] MEDS: ACETAMINOPHEN 325 MG TABLET 650 MG PO ×4 (01:21→20:13)
[2023-06-09] MEDS: LIDOCAINE 5% PATCH 1 EACH TOP ×2 (01:26→20:17)
[2023-06-09] MEDS: HYDROMORPHONE 0.5 MG INJ IV (01:26)
[2023-06-09 08:00] VITALS: BP 136/57; PULSE 98; RESP 18; TEMP 36.4; O2SAT 98
[2023-06-09] MEDS: polyethylene glycoL 3350 17 GM POWD.PACK PO (09:14)
[2023-06-09] MEDS: TAMSULOSIN 0.4 MG CAPSULE PO ×2 (09:15→20:13)
[2023-06-09] MEDS: DOCUSATE 100 MG CAPSULE PO ×2 (09:15→20:13)
[2023-06-09] MEDS: PANTOPRAZOLE DR 40 MG TABLET PO (09:15)
[2023-06-09] MEDS: FINASTERIDE 5 MG TABLET PO (09:15)
[2023-06-09 09:16] VITALS: BP 136/57; PULSE 98
[2023-06-09] MEDS: ATORVASTATIN 20 MG TABLET 10 MG PO (09:16)
[2023-06-09] MEDS: FUROSEMIDE 20 MG TABLET PO (09:16)
[2023-06-09] MEDS: METOPROLOL ER 50 MG TABLET PO (09:16)
[2023-06-09] MEDS: LOSARTAN 25 MG TABLET PO (09:16)
--- NOTE | 2023-06-09 10:46 | PM.PNPO.1 ---
Subjective Subjective Date Patient Seen: 06/09/23 Time Patient Seen: 10:30 Interval history: Patient says he is feeling better after the dressing was changed. The swelling has reduced. He still has pain along the medial aspect of his knee which was pre-existing before admission. Patient denies any fever or chills. Exam Vital Signs (past 8 hours): - 06/09/23 08:00 06/09/23 09:16 06/09/23 09:16 Temperature 97.6 F Pulse Rate 98 H 98 H 98 H Respiratory Rate 18 Blood Pressure 136/57 L 136/57 L 136/57 L Pulse Oximetry 98 Oxygen Flow Rate 0 Oxygen Delivery Method Room Air Oxygen Flow Rate 0 Narrative Exam Narrative: PT is working with patient. Dressing show minor drainage. No discharge today with palpation. 1+ edema over knee joint and anterior tibial shaft. No signs of warmth or erythema. Limited range of motion at the knee 0-20 degrees due to pain and swelling. Const General: cooperative and comfortable Resp Effort & Inspection: normal respiratory effort and able to speak in complete sentences Objective Labs 06/08/23 04:39 06/08/23 04:39 Labs: Laboratory Results - last 24 hr 06/08/23 12:10 Vancomycin Peak 37.8 PFSH Medical History Chronic, continuous use of opioids Iron deficiency anemia following bariatric surgery BPH w/o urinary obs/LUTS DDD (degenerative disc disease), lumbar Pacemaker Allergic rhinitis Obstructive sleep apnea, adult Obesity (BMI 30-39.9) Hyperlipidemia Fatigue due to sleep pattern disturbance GERD (gastroesophageal reflux disease) 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) Left inguinal hernia Chronic kidney disease (CKD) stage G3a/A1, moderately decreased glomerular filtration rate (GFR) between 45-59 mL/min/1.73 square meter and albuminuria creatinine ratio less than 30 mg/g Atrial fibrillation Surgical History H/O total knee replacement H/O left inguinal hernia repair History of cholecystectomy H/O gastric bypass Family History Family/Other Loud snoring Dementia Father Loud snoring Obesity Hypertension Heart disease Mother Loud snoring Obesity Hypertension Depression Anxiety Family/Other Hypertension Depression Social History household members: spouse and children Smoking Status: Never smoker alcohol intake: never Assessment & Plan Post-op Postoperative Procedures: Procedures Operation Date: 06/07/23 17:30 Actual Procedure Side Surgeon p I&D Abscess calf Left Yared Solitario MD Postoperative day: 2 Postoperative status: doing well Postoperative plan: routine post-op care Postoperative plan narrative: No growth preliminary reports at this time from aspiration. Patient is cleared by ortho to transition to SNF. Packing can be removed today. Apply new dressing. Follow up with Dr. Garcia once able for chronic left knee pain. Time Spent With Patient Time with patient: less than 15 minutes Quality VTE Deep Vein Thrombosis/Pulmonary Embolism Present on Admission: No
[2023-06-09] MEDS: cefTRIAXone 2,000 MG in SODIUM CHLORIDE 0.9% 100 ML 200 MG IV (11:00)
[2023-06-09] MEDS: OXYCODONE IR 5 MG TABLET 10 MG PO ×2 (11:00→23:08)
--- NOTE | 2023-06-09 11:03 | PT.IPTN ---
Current Diagnoses Acute on chronic diastolic (congestive) heart failure (06/03/23) Presence of unspecified artificial knee joint (06/03/23) Surgery Performed Operation Date: 06/07/23 17:30 Actual Procedures p I&D Abscess calf(Left) - Yared Solitario MD Physical Therapy Treatment Note M2 PT-IP Current Condition Start: 06/05/23 09:28 Freq: NEEDED Status: Active Protocol: Document 06/08/23 10:47 SP (Rec: 06/08/23 11:38 SP [id number]) Physical Therapy Current Condition Current Condition Evaluation Date 06/05/23 Treatment Diagnosis Five falls at home, LLE edema and pain, dysphagia M3 PT-IP Subjective Start: 06/05/23 09:28 Freq: NEEDED Status: Active Protocol: Document 06/09/23 10:20 MB (Rec: 06/09/23 11:02 MB [id number]) Subjective Physical Therapy Visit Type Type Treatment Note Visit Start Time 10:20 Visit Stop Time 10:43 Number of UNDERCOVER COP Visits 0 Physical Therapy Visit Comments Patient Comments Pt reports that he did not sleep well last night and then put ice on the top of his left leg and he could fall asleep. Therapy Pain Assessment Pain When Pain Assessed During Mobility Location L calf Intensity 6 Scale Used Numeric (0 - 10) Pain Management Techniques Apply Cold,Distraction, Modification of Treatment,Re- positioning,Timing of Activity with Medications M4 PT-IP Mobility and Gait Start: 06/05/23 09:28 Freq: NEEDED Status: Active Protocol: Document 06/09/23 10:20 MB (Rec: 06/09/23 11:02 MB [id number]) PT-Bed Mobility Assessment Supine to Sit Supine to Sit Standby Assistance,1 Person Assistance,Head of Bed Elevated,Bedrails Scooting Scooting to Edge of Bed Standby Assistance PT-Transfer Assessment Sit to and From Stand Sit to and from Stand Moderate Assistance,2 Person Assistance,Use of Upper Extremities Equipment Transfer Assistive Device Gait Belt,Front Wheeled Walker Orthotic/Prosthetic Devices or Brace: No Transfers Transfer Destination Bedside Commode Transfer Technique Stepping with RW Transfer Ability Level of Assist Moderate Assistance,1 Person Assistance,Use of Upper Extremities Comments Mobility Comments +2 person assistance nearby d/ t pt's needs for assistance previous treatment dates and pt is moving much better today . PA-C arrives before mobility and tourniquet celina wrap on LLE and distal to wrapping is edematous. PA-C removes dressing and then leg is re- wrapped with figure 8 dressing from foot to distal knee to help edema. Gait Assessment Gait Gait Assistance Required: Moderate Assistance,2 Person Assist Distance (Feet) 1 Assistive Devices Assistive Device Gait Belt,Front Wheeled Walker Gait Deviations General Gait Pattern Antalgic,Decreased Stride Length,Decreased Feet Clearance,Flexed Trunk,Step-to Gait,Wide Based Gait Factors Limiting Gait Function Factors Limiting Gait Function Decreased Activity Tolerance, Decreased Strength,Difficulty Following Directions,Limited Range of Motion,Pain,Poor Balance,Poor Safety Awareness Comments Gait Comments Pt does better with WB and weight shifting today and actually takes a few step-to steps. +2 person assistance nearby given previous treatment date's needs. Transferred to [facility] to try to have BM and PT speaks with nsg about mildred chair transfer, mod A, RW and two person if needed for hygiene and mobility after toileting attempt. PT-Balance Assessment Sitting Balance and Reactions Static Sitting Balance Ability Good Dynamic Sitting Balance Ability Fair Standing Balance and Reactions Static Standing Balance Ability Fair Dynamic Standing Balance Ability Fair Device Used RW M5 PT-IP Objective Assessments Start: 06/05/23 09:28 Freq: NEEDED Status: Active Protocol: Document 06/05/23 12:05 MB (Rec: 06/05/23 13:03 MB [id number]) Orientation Orientation/Cognition Level of Alertness Alert Orientation Name,Age,Birthday,Month,Date, Year,Day of Week,Place, Situation Language Function Ability No Deficits Noted Safety Awareness Decreased Safety Awareness Memory Description No Deficits Noted Gross Range of Motion Upper Extremity ROM Assessment Within Functional Limits Lower Extremity ROM Assessment Left Impaired Strength Upper Extremity Strength Assessment Within Functional Limits Lower Extremity Strength Assessment Left Impaired Comments Strength Comments Pt cannot tolerate MMT LLE and in supine, he has trouble following MMT commands for right LE but in supine, great toe extension is grossly 3+/5, knee extension is grossly 4/5 and he appears functionally weaker in right hip with standing Coordination Assessment Gross Coordination Gross Coordination Impaired M6 PT-IP Treatment Start: 06/05/23 09:28 Freq: NEEDED Status: Active Protocol: Document 06/08/23 10:47 SP (Rec: 06/08/23 11:38 SP [id number]) Physical Therapy Treatment Exercises Exercises Ankle Pumps,Seated Knee Flexion/Extension Education Education Provided Weight Bearing Status,Safety M7 PT-IP Assessment and Plan Start: 06/05/23 09:28 Freq: NEEDED Status: Active Protocol: Document 06/09/23 10:20 MB (Rec: 06/09/23 11:02 MB [id number]) PT Summary Assessment and Plan Potential Rehabilitation Potential Fair Status of Condition at Evaluation Evolving Summary Impairments Pain,ROM,Strength,Balance, Coordination,Bed Mobility, Transfers,Gait,Activity Tolerance Progress Towards Goals Slow Progress due to Pain,Slow Progress due to Medical Issues,Slow Progress due to Activity Tolerance Assessment Summary Santiago did progress today with STS, taking a few steps and transferring and he is trying the BSC today. His left LE is less edematous compared to 3 days ago yet edema was high distal to tourniquet celina wrap dressing today. Dressing changed to figure 8 from foot up to distal knee when PA-C in the room. Hope this will decrease edema and pain. Con't to recommend SNF at d/c. Goals Bed Mobility Goal Independent Transfer Goal Standby Assistance,Front Wheeled Walker Gait Goal Standby Assistance,Front Wheel Walker Gait Distance 50 Other Goals Pt will ascend and descend 3 steps with two rails to allow safe home entrance with no more than superv assistance. Days to Meet Goals 10 Frequency of Treatment Frequency Of Treatment Once a Day Treatment Plan Physical Therapy Treatment Plan Bed Mobility Training,Transfer Training,Gait Training, Therapeutic Exercise,Balance Retraining,Discharge Planning, Hot or Cold Pack,Neuromuscular Re-ed,Coordination Retraining Other Recommendations and Next Treatment standing tolerance, transfers, Focus gait if able. Will progress stair mgt 2+5 stairs if safe/ able to WB. Weight Bearing Status Weight Bearing Status Weight Bear as Tolerated Recommendations To Nursing Amount of Assist Needed 2 Person Assist Discharge Recommendations PT Discharge Recommendations SNF Rehab Transportation Needs at Discharge Wheelchair/Cabulance
[2023-06-09 11:07] VITALS: PULSE 107
[2023-06-09] MEDS: VANCOMYCIN 1,250 MG/250 ML PIGGYBACK 200 MG IV ×2 (11:47→21:45)
--- NOTE | 2023-06-09 12:50 | P.PN_ITS ---
Subjective Subjective Interval history: Some sharp leg pain with ambulation but improved today, minimal pain at rest. No chest pain or dyspnea. No nausea. remains on antibiotics, awaiting cultures and hopeful that knee effusion is not infected. No cell count was sent from aspiration. Exam Vital Signs (past 8 hours): - 06/09/23 08:00 06/09/23 09:16 06/09/23 09:16 Temperature 97.6 F Pulse Rate 98 H 98 H 98 H Respiratory Rate 18 Blood Pressure 136/57 L 136/57 L 136/57 L Pulse Oximetry 98 Oxygen Flow Rate 0 06/09/23 11:07 Temperature Pulse Rate 107 H Respiratory Rate Blood Pressure Pulse Oximetry Oxygen Flow Rate Oxygen Delivery Method Room Air Oxygen Flow Rate 0 Narrative Exam Narrative: NAD, alert and oriented. Fluent speech. Lungs are clear, normal rate and effort. Heart is regular, no murmur gallop or rub. Abdomen is soft, non distended. Extremities:left leg is swollen, not red. Slightly warm and tender laterally below knee. 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) Left inguinal hernia Chronic kidney disease (CKD) stage G3a/A1, moderately decreased glomerular filtration rate (GFR) between 45-59 mL/min/1.73 square meter and albuminuria creatinine ratio less than 30 mg/g Atrial fibrillation Surgical History H/O total knee replacement H/O left inguinal hernia repair History of cholecystectomy H/O gastric bypass Family History Family/Other Loud snoring Dementia Father Loud snoring Obesity Hypertension Heart disease Mother Loud snoring Obesity Hypertension Depression Anxiety Family/Other Hypertension Depression Social History household members: spouse and children Smoking Status: Never smoker alcohol intake: never Assessment & Plan Assessment & Plan narrative: 1. Sepsis with FERNANDA secondary to Left lateral leg cellulitis and abscess, present on admission and active. -continue Abx. Rocephin and Vanc. -s/p IR aspiration of 20cc of pus, f/up gram stain and culture though all cultures are negative to this point -s/p I&D with orthopedics on 06/06, with aspiration of left knee. Cultures pending but negative. -oxy 10mg q4h due to pain, which is what patient uses at home. Plus dilaudid IV PRN. -SOFA score of >2 based on FERNANDA -if cultures negative at 48 hours, can presume negative and move towards plan for home with outpatient oral antibiotics. 2. Acute on chronic diastolic heart failure, present on admission and improved. -peripheral edema, pulm edema on CXR, BNP elevated -echo with EF 60-65%, worsened mild , mod TR -resumed home diuresis with leg edema, leg edema improved with 20 mg PO lasix yesterday. 3. Acute kidney injury, present on admission and resolved -Presented with creatinine 3.81, baseline between 1.1?1.5. Possibly in setting of sepsis vs NSAID use. -monitor renal function closely. -Cr now normalized, monitor. 4. Frequent falls due to L knee pain with effusion. Present on admission and active. -See ortho notes. No concern for infection. -PT and OT evaluation. Fall precaution. Pain medications as needed. -resumed lidocaine patch to knee. -may need SNF, but most of difficulty ambulating due to pain in L leg 5. Dysphagia with regurgitation, chronic and active. -patient notes food stuck in his esophagus for the past week, has history of dysphagia -hold pradaxa if dilation needed -delay EGD until outpatient. -speech therapy evaluation. Diet as tolerated. 6. A-fib with RVR, present on admission and improved. -The patient was given diltiazem 10 mg IV in the ED. HR now improved to 90's. -Restarted metoprolol, held Pradaxa due I&D. Telemetry -increased metoprolol to 50 b.i.d. for rate control with improvement. Today will continue BID dosing. 7. Hyperlipidemia. Present on admission and active. - Continue home statin. 8. GERD. Present on admission and active. - Continue pantoprazole 9. BPH. Present on admission and active. -Continue Flomax DISPO: Likely discharge home tomorrow if cultures continue to remain negative on oral antibiotics. Quality VTE Deep Vein Thrombosis/Pulmonary Embolism Present on Admission: No
[2023-06-09 16:00] VITALS: BP 132/53; PULSE 91; RESP 20; TEMP 36.6; O2SAT 94
[2023-06-09 20:10] VITALS: BP 149/67; PULSE 82; RESP 18; TEMP 36.4; O2SAT 98
[2023-06-09] MEDS: SENNOSIDES 8.6 MG TABLET 17.2 MG PO (20:16)
[2023-06-09] MEDS: MELATONIN 3 MG TABLET 6 MG PO (23:07)
--- NOTE | 2023-06-10 07:16 | DI.CT.S_ITS ---
PROCEDURE: CT ANGIO HEAD AND NECK INDICATIONS: Stroke TECHNIQUE: After the administration of intravenous contrast, 1 mm thick sections acquired from the aortic arch through the [place]. 3-dimensional hincbpl-ghvifkoat-ulepsppjsq (MIP) and/or volume rendering reformats were acquired of the central intracranial vasculature and neck separately. For radiation dose reduction, the following was used: automated exposure control, adjustment of mA and/or kV according to patient size. COMPARISON: None. FINDINGS: Image quality: Diagnostic. BRAIN: Please refer to separately dictated CT of the head. HEAD CT ANGIOGRAPHY: Anterior circulation: Intracranial internal carotid arteries are normal in size and flow. The flow within the paired anterior cerebral arteries is normal and symmetric. There is a short segment occlusion of the distal M1 segment the right with reconstitution at the proximal M2 segment within the sylvian fissure, measuring a length of approximately 3 centimeters. The anterior communicating artery is seen. No aneurysms are seen. Posterior circulation: Visualized portions of the vertebral arteries demonstrate normal caliber, and join to form a normal appearing basilar artery. Flow within the posterior cerebral arteries is normal and symmetric. No aneurysms are seen. NECK CT ANGIOGRAPHY: Carotid system: The great vessels demonstrate a conventional anatomy as they arise from the aortic arch. The origins of the common carotid arteries appear patent. The common carotid arteries demonstrate normal caliber and courses. The bifurcation regions demonstrate atherosclerotic vascular calcifications with less than 50 percent stenosis bilaterally. The internal carotid arteries demonstrate normal calibers and courses. Posterior circulation: The origins of the vertebral arteries both appear widely patent. The more superior extracranial portions of both vertebral arteries also demonstrate normal courses and calibers. They join to form a normal appearing basilar artery. Soft tissues: Visualized neck soft tissues demonstrate no suspicious abnormalities. Thyroid isthmus nodule measuring 2 centimeters. Bones: No suspicious bony lesions. Degenerative changes of the spine. Visualized cervical spine appears normally aligned. IMPRESSION: Short segment occlusion of the right distal M1 segment with reconstitution of the proximal M2 segment. No significant abnormality is seen within the arteries of the neck. Thyroid isthmus nodule measuring 2 centimeters, recommend nonurgent dedicated thyroid ultrasound. Findings are concordant with preliminary interpretation provided by [facility]. Findings were discussed by the covering radiologist with Aaron Lunsford DO on June 09 at 8 a.m.. Any quantitative measurements of stenosis were performed using NASCET criteria. Dictated by: Gatito Salter M.D. on 06/10/2023 at 8:06 Approved by: Gatito Salter M.D. on 06/10/2023 at 8:24
--- NOTE | 2023-06-10 07:54 | PM.EVENT ---
Event Note Date Patient Seen: 06/10/23 Time Patient Seen: 07:55 Event Note (Rapid Response, Code, or fall): Code stroke activated for acute onset of L sided symptoms including facial droop, left weakness. CTA ordered by overnight provider. Telestroke evaluating patient for tNK which is ordered. coags pending. His last dose of blood thinner was prior to admission due to surgery with risk of returning to the OR. Transfer to the ICU now. tPA given at 8:02. Pending transfer out now.
[2023-06-10 07:56] LABS: INR 1.4 (0.9-1.3); Prothrombin Time 15.7 SECONDS (9.4-12.5)
[2023-06-10 07:59] LABS: PTT Partial Thromboplastin Tim 31 SECONDS (25.1-36.5)
[2023-06-10 08:00] VITALS: BP 151/121; PULSE 107; O2SAT 95
[2023-06-10] MEDS: TENECTEPLASE 50 MG VIAL 25 MG IV (08:02)
--- NOTE | 2023-06-10 08:05 | PM.DS.1 ---
History of Present Illness History of Present Illness Date Patient Seen: 06/10/23 Time Patient Seen: 08:05 Chief complaint: fall Narrative: From overnight provider: 68 years old male with history of atrial fibrillation on Pradaxa, hypertension, hyperlipidemia, COPD, GERD, BPH presented to the ER with multiple falls in the last several days. He was seen in the ED on May 28 after ground-level fall and left knee pain. Initial workup including x-ray was negative and the patient was sent home on oxycodone. Since then he was following at least 5 times due to pain in the left knee. Denies any loss of consciousness or head injuries. He also reports some shortness of breath and gained around 8 pounds in the last week. He also reports increased swelling of his legs. Denies any fever, chest pain, palpitations, nausea, vomiting, abdominal pain, diarrhea or dysuria. In the ER he was found to have A-fib with RVR and was given diltiazem 10 mg IV, albuterol nebulizer, metoprolol 50 mg p.o. fluid bolus 1 L and Lasix 40 mg IV. Laboratory shows WBC 8.1, H&H 11.1/32.9, platelets 124, INR 1.5, sodium 137, potassium 4.3, BUN 79, creatinine 3.81, calcium 10.2, BNP 10,500, lipase 34, UA shows leukoesterase 1+, WBC 1?5, bacteria. Vascular ultrasound was negative for DVT. Head CT negative. Chest x-ray preliminary negative. EKG shows atrial fibrillation of 123. Patient tells me he has been taking ibuprofen several times per day for a few weeks due to his L knee pain. He then noticed he was urinating less despite taking lasix the past week and his weight began to climb. He previously has NSAID-induced FERNANDA in the past from ibuprofen but his kidney function recovered. He also notes dysphagia with regurgitation of food the past week. This has been an ongoing problem and he has seen [facility] and [facility] in the past. His last EGD was a few years ago before the pandemic. He noticed chicken especially gets stuck at the bottom of his esophagus. Discharge Providers Provider Date of admission: 06/03/23 04:51 Discharge Date: 06/10/23 Primary care physician: Natasha Carroll MD Consults: 06/03/23 13:02 Consult to Speech Therapy Evaluate & Treat Comment: Physician Instructions: Evaluate and treat 06/03/23 13:14 Consult to General Surgery Routine Comment: Consulting Provider: Gilmer Ball Reason for consultation: dysphagia, needs EGD 06/03/23 15:16 Consult to Orthopedic Surgery Routine Comment: Consulting Provider: Yared Solitario Reason for consultation: L knee pain, effusion, possible septic arthritis 06/05/23 09:03 Consult to Physical Therapy Evaluate & Treat Comment: Physician Instructions: Evaluate and Treat 06/07/23 19:03 Consult to Discharge Planning Routine Comment: Consult to Physical Therapy Evaluate & Treat Comment: Physician Instructions: Evaluate and Treat 06/09/23 12:26 Consult to Home Health Routine Comment: Reason For Exam: Home health services upon discharge Discharge provider: Aaron Lunsford DO Summary Hospital Course Discharge Diagnosis: Please see hospital course by problem list noted below: Hospital Course: *Acute CVA, R MCA territory. - At 6:50 AM patient noted acute onset of L sided weakness, L facial droop. Code stroke activated and 25 mg of TNK was given at 8:02 AM after CTA confirmed a R M1 infarct in coordination with telestroke service. Patient transferring to [facility] for further monitoring after thrombolytics given. NIH improved from 9 to 1 after TNK given. INR 1.4 prior to thrombolytics given. 1. Sepsis with FERNANDA secondary to Left lateral leg cellulitis and abscess, present on admission and active. -has been on antibiotics ceftriaxone and vancomycin since admission on 06/03. Consider antibiotics but since cultures have been negative and patient is s/p I&D these can likely stop. -s/p IR aspiration of 20cc of pus, all cultures are negative to this point -s/p I&D with orthopedics on 06/06, with aspiration of left knee. Cultures are still negative. -oxy 10mg q4h due to pain, which is what patient uses at home. Plus dilaudid IV PRN. -SOFA score of >2 based on FERNANDA on admission. -outpatient follow up with orthopedics at [facility] orthopedics is recommended. 2. Acute on chronic diastolic heart failure, present on admission and improved. -peripheral edema, pulm edema on CXR, BNP elevated -echo with EF 60-65%, worsened mild , mod TR -was initially diuresed but developed slight hypotension, held for a few days prior to surgical interventions. -leg edema improved with 20 mg PO lasix resumed on 06/07. Continue furosemide 20 mg PO daily after discharge. 3. Acute kidney injury, present on admission and resolved -Presented with creatinine 3.81, baseline between 1.1?1.5. Possibly in setting of sepsis vs NSAID use. -monitor renal function closely. -Cr now normalized, monitor. 4. Frequent falls due to L knee pain with effusion. Present on admission and active. -See ortho notes. No concern for infection. -PT and OT evaluation. Fall precaution. Pain medications as needed. -resumed lidocaine patch to knee. -may need SNF, but most of difficulty ambulating due to pain in L leg 5. Dysphagia with regurgitation, chronic and active. -patient notes food stuck in his esophagus for the past week, has history of dysphagia -EGD was recommended as an outpatient. -speech therapy evaluation was ordered and he had no issues initially. Diet was ordered as tolerated. 6. A-fib with RVR, present on admission and improved. -The patient was given diltiazem 10 mg IV in the ED. HR now improved to 90's. -increased metoprolol to 50 b.i.d. for rate control with improvement. Today will continue BID dosing. -home dabigatran has been held since admission. 7. Hyperlipidemia. Present on admission and active. - Continue home statin. 8. GERD. Present on admission and active. - Continue pantoprazole 9. BPH. Present on admission and active. -Continue Flomax Dispo: Transfer to [facility], Dr. Summers accepting provider. Code: Full, surrogate is patient's spouse Freda Houston, [phone] Time Spent with Patient Time spent: Greater than 30 minutes Exam Vital Signs (past 8 hours): Oxygen Delivery Method Room Air Oxygen Flow Rate 0 Narrative Exam Narrative: NAD, alert and oriented. Fluent speech. L facial droop, very mild, NIH 1 now. Lungs are clear, normal rate and effort. Heart is regular, no murmur gallop or rub. Abdomen is soft, non distended. 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) Left inguinal hernia Chronic kidney disease (CKD) stage G3a/A1, moderately decreased glomerular filtration rate (GFR) between 45-59 mL/min/1.73 square meter and albuminuria creatinine ratio less than 30 mg/g Atrial fibrillation Surgical History H/O total knee replacement H/O left inguinal hernia repair History of cholecystectomy H/O gastric bypass Family History Family/Other Loud snoring Dementia Father Loud snoring Obesity Hypertension Heart disease Mother Loud snoring Obesity Hypertension Depression Anxiety Family/Other Hypertension Depression Social History household members: spouse and children Smoking Status: Never smoker alcohol intake: never Discharge Plan Discharge Plan Patient Disposition: [facility] Under care of provider: Dr. Summers Provider Discharge Comment: Code Stroke, left arm weakness, s/p TNK Discharge Health Status Precautions: [place] Diet/Activity/Treatments Diet: Nothing by Mouth Activity: As tolerated Discharge Data Primary Care Provider: Natasha Carroll VTE Deep Vein Thrombosis/Pulmonary Embolism Present on Admission: No
[2023-06-10 08:15] VITALS: BP 151/80; PULSE 99; O2SAT 96
--- NOTE | 2023-06-10 08:23 | PC.NURSE ---
0705 Patient complains of left side facial droop and left arm weakness and inability to move. Code Stroke called at 0750. Patient's last known normal was 0650. Dr Lunsford notified, CTA and coagulation labs ordered (See chart). Blood sugar 101. See vitals. [facility] Telestroke called and assessed the patient. TNK ordered and the patient was transferred to ICU for closer observation.
--- NOTE | 2023-06-10 08:29 | PC.NURSE ---
Patient given TNK (Tenecteplase) at 8:02 through r.wrist/hand iv. Telestroke called, did her assessment of patient over the ipad and states that NIH score was a 9. Patient now in room 227 icu and will be transferring to [facility] in [place].
[2023-06-10 08:30] VITALS: PULSE 113; RESP 34; O2SAT 97
[2023-06-10 08:31] VITALS: BP 141/86; PULSE 111; RESP 32; O2SAT 95
[2023-06-10] MEDS: MORPHINE 2 MG/ML INJ IV (08:35)
--- NOTE | 2023-06-10 08:44 | PC.NURSE ---
NIH score improved to 1 at 0835, minor left sided facial drooping.
[2023-06-10 08:45] VITALS: BP 148/95; PULSE 109; RESP 25; O2SAT 95
== END 2023-06-10 08:57 | disposition short-term general hospital (02) | DRG 853 ==
LOC: ED 04:50 → AC 04:51 → ICU 17:09 → AC 06-08 14:05
PROVIDERS: Orthopaedic Surgery; Student in an Organized Health Care Education/Training Program; Admitting Provider Internal Medicine; Emergency Provider Emergency Medicine; PCP Internal Medicine; Referring Provider Emergency Medicine; Visit Provider Internal Medicine
PROC: 0JDP0ZZ Extraction of Left Lower Leg Subcutaneous Tissue and Fascia, Open Approach (ICD-10-PCS; principal; 2023-06-07 17:30)
DX: A41.9 Sepsis, unspecified organism (principal); I50.33 Acute on chronic diastolic (congestive) heart failure; I63.89 Other cerebral infarction; N17.9 Acute kidney failure, unspecified; L03.116 Cellulitis of left lower limb; L02.416 Cutaneous abscess of left lower limb; G81.94 Hemiplegia, unspecified affecting left nondominant side; R65.20 Severe sepsis without septic shock; I11.0 Hypertensive heart disease with heart failure; I48.91 Unspecified atrial fibrillation; E78.5 Hyperlipidemia, unspecified; K21.9 Gastro-esophageal reflux disease without esophagitis; N40.0 Benign prostatic hyperplasia without lower urinary tract symptoms; R13.10 Dysphagia, unspecified; R29.810 Facial weakness; R29.709 NIHSS score 9; R29.701 NIHSS score 1; M25.462 Effusion, left knee; Z95.0 Presence of cardiac pacemaker; Z91.81 History of falling; Z96.652 Presence of left artificial knee joint; Z79.01 Long term (current) use of anticoagulants
CPT/HCPCS: 10005; 36415; 70450; 70496; 70498; 71045; 73700; 76770; 80048; 80053; 80061; 80202; 81001; 82550; 83690; 83735; 83880; 84300; 84484; 85007; 85025; 85610; 85651; 85730; 86140; 87040; 87070; 87075; 87077; 87086; 87186; 87205; 92526; 92610; 93005; 93306; 93971; 96374; 96375; 97163; 97530; 99285; J3101; A9270; J0330; J0692; J0696; J0736; J1170; J1940; J2270; J2405; J3010; Q9967

== ENCOUNTER 2024-01-25 12:30 | Inpatient (IN) | payer MEDICARE, SELFPAY ==
[2023-06-03 05:29] VITALS: BMI 41.3
[2024-01-25] VITALS (15 sets, daily range): BP systolic 110–138; BP diastolic 52–96; PULSE 63–75; RESP 12–18; TEMP 36.1–36.5; O2SAT 93–100; BMI 36.6
--- NOTE | 2024-01-25 | PATH_ITS ---
[facility] Accession Number: [id number] No. of containers..01 Tissue . 01 Material submitted: . knee - LEFT KNEE . 01 Diagnosis: LEFT KNEE, BIOPSY: Acutely inflamed granulation tissue. . NOTE: The findings are nonspecific. No epidermis is visualized histologically, limiting evaluation. If this biopsy is part of a larger lesion, it may not be charter representative of the lesion as a whole. Clinical pathological correlation is advised for definitive diagnosis. [facility] 02/01/2024 1427 Local . 01 Comment: Melan-A and HMWCK immunohistochemical stains* performed support the above diagnosis. . The histologic material was reviewed with Dr. Aubrey Slater, who concurs. . . * This test was developed and the performance characteristics were validated by [facility]. It has not been cleared or approved by the U.S. Food and Drug Administration. . 01 Electronically signed: . Patricia Read MD, Dermatopathologist NPI- [id number] . 01 Gross description: . Received in formalin with two patient identifiers and left knee, is a mejia to brown soft tissue fragment measuring 1.8 x 0.7 x 0.3 cm. Inked blue and sectioned to reveal a soft mejia to brown cut surface. Submitted entirely in cassette A1. ([id number]) /[facility] 01/26/2024 1019 Local . 01 Pathologist provided ICD-10: R23.9 . 01 CPT . 248052, F91350, [id number] Specimen Comment: A courtesy copy of this report has been sent to [phone] Performed at: [address] [address], [place], [place] [id number] MD Thiago Fish MD Phone: [phone]
[2024-01-25 13:32] LABS: Hemoglobin 14.5 g/dL (13.5-17.5); Mean Corpuscular HGB Conc 32.9 % (30-36); Mean Corpuscular Hemoglobin 27.7 PG (26-34); Mean Corpuscular Volume 84.2 fL (80-100); Platelet Count 212 X10^3/uL (150-400); Red Blood Cell Count 5.23 X10^6/uL (4.5-5.9); Red Cell Distribution Width 16.7 % (11.6-14.8); White Blood Cell Count 6.7 X10^3/uL (4.5-11.0)
[2024-01-25 13:46] LABS: BUN Creatinine Ratio 28.3 (6-22); Blood Urea Nitrogen 26 mg/dL (9-20); C-Reactive Protein Quant 1.2 mg/dL (<1.0); Calcium 9.7 mg/dL (8.4-10.2); Carbon Dioxide 27 mmol/L (22-32); Chloride 107 mmol/L (98-107); Estimated Glomerular Filt Rate > 60 mL/min (>60); Glucose 112 mg/dL (80-110); HEMOLYSIS 22 (0-50); Potassium 4.3 mmol/L (3.4-5.1); Sodium 141 mmol/L (137-145)
--- NOTE | 2024-01-25 14:58 | PM.PREOP ---
Pre-operative Note Interval Note History & Physical reviewed/Exam performed by Physician: Yes Changes to H&P: No
--- NOTE | 2024-01-25 14:58 | PM.OP.1 ---
Operative Date/Time/Diagnoses Date of procedure: 01/25/24 Time of procedure: 15:09 Pre-op diagnosis: Left leg abscess Post-op diagnosis: same Procedure & Clinicians Procedure: 1. I&D left leg abscess, deep CPT code 50950 2. Arthrocentesis knee joint left CPT code 14009 +59--separate site Same procedure as scheduled: Yes Indications: The patient is a 68-year-old male with a history of a left knee replacement about 8-10 years ago in [place] that has a history of atrial fibrillation complicated by multiple strokes on chronic anticoagulation with Eliquis 5 mg daily. He has a history of a left lower extremity calf abscess in May of 2023 he was hospitalized at [facility] and had an I and D of this region. At that time he had an arthrocentesis of the left knee joint that was negative for infection. He ended up being transferred to [facility] after an acute stroke and has been mostly wheelchair bound. He presents to me today with a new medial knee abscess and increasing pain. Per report this has been going on for about 2 months. He has been on and off oral antibiotics with his primary care doctor. He has a left knee abscess concern for prosthetic infection as well. He is indicated for formal I and D of the abscess and aspiration of the knee joint possible washout of the knee joint. He will require inpatient admission and IV antibiotics. His medical history is further complicated by an implantable defibrillator and chronic anticoagulation history of strokes. Discussed if he was found to have an infection in the knee prosthetic he may need additional treatment with washouts or prosthesis removal or chronic suppression. The risks and benefits of the procedure have been discussed with the patient and given the opportunity to ask questions. The risks of surgery include but are not limited to infection, malunion, nonunion, persistence of pain, damage to nerves and blood vessels, posttraumatic arthritis, DVT, PE, coardiopulmonary complications and . The patient expressed a thorough understanding of the risks and benefits of surgery and has elected to proceed. Consent was signed/ Surgeon: Chica Whitfield Click Yes if Unassisted: Yes Anesthesia Type: General and Local Operative Notes Findings: Left lower extremity soft tissue abscess medial and inferior to knee joint area of proximal tibia medial to previous TKA incision. Fluctuance. Left knee joint aspiration Closure Type: primary Specimen(s): other (Abscess contents sent for culture pathology, bacterial PCR. Left knee joint arthrocentesis fluid sent for culture, bacterial PCR) Prosthetic devices, grafts, tissues, transplants, or devices: None Tourniquet time (min): 18 Procedure in detail: Patient was seen in the preoperative area the site of surgery was marked informed consent confirmed. This was the left knee. The patient was brought back to the operating room by the anesthesia team positioned supine on operative table. General anesthetic was administered. The left lower extremity was prepped and draped in the standard sterile fashion a formal time-out procedure was performed confirming the patient's side and surgeries and informed consent. Antibiotics were held for cultures. Attention was turned to the left knee. There was no palpable effusion. There was no cellulitis the level of the knee itself. With sterile technique a aspiration of the left knee joint was completed using a superior medial portal approach the 18 gauge spinal needle was inserted into the joint. Approximately 3 cc of yellow synovial fluid were returned. These were sent for Gram stain and culture. [place] exsanguination was completed and the tourniquet raised on the thigh to 250 mmHg. Attention was turned to the left knee the anterior knee incision was well healed. There was a distal anteromedial abscess right over the area of the pes bursa and there was palpable fluctuance. A proximally 7 cm curvilinear incision along the abscess cavity was taken down through the skin and subcutaneous tissue. Abscess edges were sharply excised with a scalpel. Purulent material was immediately encountered. This was a thick yellow gooey purulence. Cultures, pathology and bacterial PCR were sent. Abscess cavity tracked up to the lateral patella tendon and to the level of the capsule but did not appear to violate it. The area was debrided sharply and with a curette. Then irrigated with 3 L of saline with pulsatile lavage. Once this was completed a new sterile drape was applied. Gloves were changed instruments were changed. The wound was closed with 2-0 PDS and 2-0 and 3-0 nylon suture. Some additional Dermabond was applied as well. Tourniquet was released prior to final closure. Hemostasis was achieved. 10 cc of 0.25% Marcaine with epinephrine were injected for local anesthesia. A Aquacel dressing was applied and an Vaughn wrap. Drapes removed. The patient was awoken from anesthesia and taken to the recovery room in good condition there were no immediate complications of this procedure. Counts were correct. Complications: none Post-operative Condition: stable Disposition: Acute Care Plan for aftercare: May restart Eliquis 5 mg b.i.d. Empiric vancomycin until cultures return. We will likely require Infectious Disease consultation--- antibiotics until knee aspirate cultures finalize. If knee aspirate grows bacteria may need additional treatment of prosthetic joint infection versus chronic antibiotic suppression. Given the patient's comorbidities, chronic suppression with retaining knee prosthesis, if possible, may be the best outcome for him. Current abscess incision closed with nylon and Dermabond. Sutures to remain in place at least 2 weeks until follow up with orthopaedic surgery outpatient. Dressing can be changed as needed. Activity as tolerated.
--- NOTE | 2024-01-25 15:39 | SUR.OPER ---
Supine on padded OR bed. Pillow under head, arms secured on padded armboards <90 degree abduction. Safety belt across torso. Non-operative leg secured with tape over blanket over lower leg. Operative leg secured in DeMayo/Vaughn/Nathe positioner. Foam padded brace at thigh of operative leg.
[2024-01-25] MEDS: VANCOMYCIN 1,000 MG/200 ML PIGGYBACK 200 MG IV ×2 (15:40→23:07)
[2024-01-25] MEDS: BUPIVACAINE 0.25% (PF) 30 ML, EPINEPHrine 0.15 MG INJ (15:56)
[2024-01-25] MEDS: ACETAMINOPHEN IV 1,000 MG/100 ML VIAL 400 MG IV (16:36)
[2024-01-25] MEDS: OXYCODONE IR 5 MG TABLET PO ×2 (16:39→20:23)
--- NOTE | 2024-01-25 16:57 | P.HP_ITS ---
History of Present Illness History of Present Illness Date Patient Seen: 01/25/24 Time Patient Seen: 18:08 Chief complaint: INPT Narrative: The patient is a 68-year-old male with a history of left leg abscess last May. He now presents with left leg swelling and pain for several weeks which has been progressive. He saw Dr. Mcclendon who recommended incision and drainage. This happened in the OR today, and the procedure was uncomplicated. Swabs were sent for culture and vancomycin was started. He denies fevers, or chills. No nausea, or vomiting. He denies any trauma to the knee. He has been constipated lately and has not had a BM for several days. He does have chronic dysphonia. He also has atrial fibrillation, takes apixaban, and had complications of possible stroke when this was held for his prior leg incision and drainage. 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) Left inguinal hernia Chronic kidney disease (CKD) stage G3a/A1, moderately decreased glomerular filtration rate (GFR) between 45-59 mL/min/1.73 square meter and albuminuria creatinine ratio less than 30 mg/g Atrial fibrillation Surgical History H/O total knee replacement H/O left inguinal hernia repair History of cholecystectomy H/O gastric bypass Family History Family/Other Loud snoring Dementia Father Loud snoring Obesity Hypertension Heart disease Mother Loud snoring Obesity Hypertension Depression Anxiety Family/Other Hypertension Depression Social History household members: spouse and children Smoking Status: Never smoker alcohol intake: never Meds Home Medications and Allergies Home Medications Medication Instructions Recorded Confirmed Type finasteride 5 mg tablet 5 mg PO QDAY ##0 10/12/16 06/03/23 History furosemide 20 mg tablet 20 mg PO QDAY PRN Water retention 10/12/16 06/03/23 History ##0 multivitamin (Multiple Vitamins 1 tab PO QPM ##0 10/12/16 06/03/23 History tablet) pantoprazole 40 mg tablet,delayed 40 mg PO QDAY ##0 10/12/16 06/03/23 History release tamsulosin 0.4 mg capsule (Flomax) 0.4 mg PO BID ##0 10/12/16 06/03/23 History metoprolol succinate 50 mg 50 mg PO DAILY 03/19/20 06/03/23 History tablet,extended release 24 hr nitroglycerin 0.4 mg sublingual 0.4 mg sublingual Q5M PRN Chest 12/24/21 06/03/23 History tablet Pain atorvastatin 10 mg tablet 10 mg PO DAILY 01/31/23 06/03/23 History dabigatran etexilate 150 mg capsule 150 mg PO DAILY 01/31/23 06/03/23 History oxycodone-acetaminophen 10 mg-325 1 tab PO 4XD PRN Pain (Scale Score 01/31/23 06/03/23 History mg tablet 4-6) apixaban 5 mg tablet (Eliquis) 5 mg PO BID 01/25/24 01/25/24 History Allergies Allergy/AdvReac Type Severity Reaction Status Date / Time tramadol Allergy Intermediate shakey Verified 01/25/24 13:06 NSAIDS (Non-Steroidal AdvReac Intermediate pt is not Verified 01/25/24 13:06 Anti-Inflamma supposed [NSAIDS (NON-STEROIDAL to take ANTI-INFLAMMA] them Review of Systems Review of Systems Narrative: All else reviewed and otherwise unremarkable except as noted in the history and physical. Exam Vital Signs (past 8 hours): - 01/25/24 13:28 01/25/24 16:12 01/25/24 16:17 Temperature 96.9 F L 97.5 F L Pulse Rate 63 73 67 Respiratory Rate 18 13 12 Blood Pressure 121/75 131/79 128/90 Pulse Oximetry 93 99 99 Oxygen Delivery Method Room Air Room Air Room Air 01/25/24 16:22 01/25/24 16:27 01/25/24 16:32 Temperature Pulse Rate 74 73 72 Respiratory Rate 12 14 12 Blood Pressure 138/73 132/82 120/69 Pulse Oximetry 98 98 97 Oxygen Delivery Method Room Air Room Air Room Air 01/25/24 16:37 01/25/24 16:42 Temperature Pulse Rate 71 74 Respiratory Rate 15 12 Blood Pressure 138/65 124/96 H Pulse Oximetry 99 99 Oxygen Delivery Method Room Air Room Air Oxygen Delivery Method Room Air Narrative Exam Narrative: NAD, alert and oriented, fluent speech, calm. Normocephalic skull, EOMI, anicteric sclera, symmetric pupils. Oropharynx unremarkable, no droop. Neck supple, midline trachea, no adenopathy. Lungs clear, normal rate and effort. Heart regular, no murmur gallop or rub. Abdomen is soft, non distended and non tender. Extremities are free of edema. Left knee is wrapped with an Vaughn wrap in the skin is normal, not red, and free of swelling above and below the wrapping. Skin is free of rash or lesions. Joints are not swollen or deformed. Judgment appears to be normal. Objective Labs 01/25/24 13:20 01/25/24 13:20 Labs: Laboratory Results - last 24 hr 01/25/24 13:20 WBC 6.7 RBC 5.23 Hgb 14.5 Hct 44.0 MCV 84.2 MCH 27.7 MCHC 32.9 RDW 16.7 H Plt Count 212 Sodium 141 Potassium 4.3 Chloride 107 Carbon Dioxide 27 BUN 26 H Creatinine 0.92 Estimated GFR > 60 BUN/Creatinine Ratio 28.3 H Glucose 112 H Calcium 9.7 C-Reactive Protein 1.2 H Assessment & Plan Assessment & Plan narrative: 1. Left lateral leg cellulitis and abscess, present on admission and active. -continue Abx. Rocephin and Vanc. -status post incision and drainage on January 24. 2. Chronic diastolic heart failure, present on admission and stable. 3. Dysphagia with regurgitation, chronic and active. -patient notes food stuck in his esophagus for the past week, has history of dysphagia 4. A-fib, present on admission and stable. 7. Hyperlipidemia. Present on admission and active. 8. GERD. Present on admission and active. - Restart pantoprazole 9. BPH. Present on admission and active. -Restart Flomax PLAN: -routine postoperative care -resume apixaban -continue vancomycin and await cultures from incision and drainage Full resuscitation EDMUND is December 26, anticipate 2 midnights necessity for hospital services. This supports his inpatient status. Time-Based Coding :: 40 min spent with patient and on the chart (including review of chart, obtaining history, exam, reviewing outside data, placing orders, documenting exam and treatment plan, and counseling patient) on 01/24. Quality MIPS - Admit I confirm the patient?s Advance Care Plan is present, Code status is documented, Surrogate decision maker is in patient?s record [If Yes, STOP here]: Yes MIPS - Meds 'Current medications' to include all prescriptions, [id number] products, herbals, cannabis/cannabidiol products, and vitamin/mineral/dietary (nutritional) supplements. I have utilized all available resources to obtain, update, or review the patient?s current medications. [If Yes, STOP here]: Yes
--- NOTE | 2024-01-25 17:41 | PC.NURSE ---
Rn spoke with provider at 1735 to verify pm dose of Apixaban and was given orders to precede wth scheduled dose at 2100
[2024-01-25] MEDS: BISACODYL 10 MG SUPP PR (20:11)
[2024-01-25] MEDS: ACETAMINOPHEN 325 MG TABLET 650 MG PO (20:22)
[2024-01-25] MEDS: METOPROLOL ER 50 MG TABLET 100 MG PO (20:23)
[2024-01-25] MEDS: APIXABAN 5 MG TABLET PO (20:23)
[2024-01-25] MEDS: ATORVASTATIN 20 MG TABLET 10 MG PO (20:24)
[2024-01-25 22:05] LABS: Erythrocyte Sedimentation Rate 14 MM/HR (0-15)
[2024-01-26] VITALS (8 sets, daily range): BP systolic 103–119; BP diastolic 59–71; PULSE 70–92; RESP 15–22; TEMP 36.3–36.9; O2SAT 92–98
[2024-01-26 05:34] LABS: Add Manual Diff / Slide Review NO; Basophils Absolute Auto 0 /uL (0-100); Basophils Percent Auto 0.2 % (0-2); Eosinophils Absolute Auto 0 /uL (0-450); Hematocrit 41.3 % (41-53); Hemoglobin 13.6 g/dL (13.5-17.5); Lymphocytes Absolute Auto 800 /uL (1100-4500); Lymphocytes Percent Auto 9.7 % (25-40); Mean Corpuscular Hemoglobin 27.9 PG (26-34); Mean Corpuscular Volume 84.5 fL (80-100); Monocytes Absolute Auto 200 /uL (0-900); Monocytes Percent Auto 2.7 % (3-14); Neutrophils Absolute Auto 7600 /uL (1500-7000); Neutrophils Percent Auto 87.4 % (50-75); Platelet Count 209 X10^3/uL (150-400); Red Blood Cell Count 4.89 X10^6/uL (4.5-5.9); Red Cell Distribution Width 16.3 % (11.6-14.8); White Blood Cell Count 8.7 X10^3/uL (4.5-11.0)
[2024-01-26 05:52] LABS: BUN Creatinine Ratio 26.7 (6-22); Blood Urea Nitrogen 24 mg/dL (9-20); Calcium 9.4 mg/dL (8.4-10.2); Carbon Dioxide 24 mmol/L (22-32); Chloride 101 mmol/L (98-107); Estimated Glomerular Filt Rate > 60 mL/min (>60); Glucose 134 mg/dL (80-110); HEMOLYSIS < 15 (0-50); Potassium 4.8 mmol/L (3.4-5.1); Sodium 131 mmol/L (137-145)
[2024-01-26] MEDS: VANCOMYCIN 1,000 MG/200 ML PIGGYBACK 200 MG IV ×2 (06:16→15:45)
[2024-01-26] MEDS: PANTOPRAZOLE DR 40 MG TABLET PO (06:16)
--- NOTE | 2024-01-26 08:04 | P.PN_ITS ---
Subjective Subjective Interval history: Summary: He was admitted postop after a left thigh abscess drainage. He was started on antibiotics, anticoagulation was resumed. He was chronic weakness of his legs relating to strokes as well as chronic dysphagia. Nursing notes that he has a lower sodium today and appears to be dry. He was not eating much, we will start IV fluids. He was also been constipated and had no effect with a suppository last night. S: His leg is less painful today. Cultures remained negative after incision and drainage yesterday. He was on antibiotics. He has chronic constipation and did not have any response to a suppository and would like to try an enema today. No other complaints. Exam Vital Signs (past 8 hours): - 01/26/24 06:30 Temperature 98.4 F Pulse Rate 90 Respiratory Rate 22 Blood Pressure 110/63 Pulse Oximetry 96 Oxygen Delivery Method Room Air Narrative Exam Narrative: NAD, alert and oriented. Slow and slurred speech, chronic. Lungs are clear, normal rate and effort. Heart is regular, no murmur gallop or rub. Abdomen is soft, non distended. Extremities are free of edema. Left knee wrapped. Skin normal above and below. Objective Labs 01/26/24 05:00 01/26/24 05:00 Labs: Laboratory Results - last 24 hr 01/25/24 01/26/24 13:20 05:00 WBC 6.7 8.7 RBC 5.23 4.89 Hgb 14.5 13.6 Hct 44.0 41.3 MCV 84.2 84.5 MCH 27.7 27.9 MCHC 32.9 33.0 RDW 16.7 H 16.3 H Plt Count 212 209 Neut % (Auto) 87.4 H Lymph % (Auto) 9.7 L [place] % (Auto) 2.7 L Eos % (Auto) 0.0 L Baso % (Auto) 0.2 Neut # (Auto) 7600 H Lymph # (Auto) 800 L [place] # (Auto) 200 Eos # (Auto) 0 Baso # (Auto) 0 ESR 14 Sodium 141 131 L D Potassium 4.3 4.8 Chloride 107 101 Carbon Dioxide 27 24 BUN 26 H 24 H Creatinine 0.92 0.90 Estimated GFR > 60 > 60 BUN/Creatinine Ratio 28.3 H 26.7 H Glucose 112 H 134 H Calcium 9.7 9.4 C-Reactive Protein 1.2 H PFSH Medical History Normal cardiac ejection fraction (06/03/23) Aortic stenosis Chronic, continuous use of opioids Iron deficiency anemia following bariatric surgery BPH w/o urinary obs/LUTS DDD (degenerative disc disease), lumbar Pacemaker Allergic rhinitis Obstructive sleep apnea, adult Obesity (BMI 30-39.9) Hyperlipidemia Fatigue due to sleep pattern disturbance GERD (gastroesophageal reflux disease) Essential 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) Left inguinal hernia Chronic kidney disease (CKD) stage G3a/A1, moderately decreased glomerular filtration rate (GFR) between 45-59 mL/min/1.73 square meter and albuminuria creatinine ratio less than 30 mg/g Atrial fibrillation Surgical History H/O total knee replacement H/O left inguinal hernia repair History of cholecystectomy H/O gastric bypass Family History Family/Other Loud snoring Dementia Father Loud snoring Obesity Hypertension Heart disease Mother Loud snoring Obesity Hypertension Depression Anxiety Family/Other Hypertension Depression Social History household members: spouse and children Smoking Status: Never smoker alcohol intake: never Assessment & Plan Assessment & Plan narrative: 1. Left lateral leg cellulitis and abscess, present on admission and active. -continue Abx. Rocephin and Vanc. -status post incision and drainage on January 24. 2. Chronic diastolic heart failure, present on admission and stable. 3. Dysphagia with regurgitation, chronic and active. -patient notes food stuck in his esophagus for the past week, has history of dysphagia 4. A-fib, present on admission and stable. 7. Hyperlipidemia. Present on admission and active. 8. GERD. Present on admission and active. - Restart pantoprazole 9. BPH. Present on admission and active. -Restart Flomax 10. Constipation. Present on admission and active. PLAN: -Phys therapy -resumed apixaban -continue vancomycin and await cultures from incision and drainage (no growth today) -enema per his request. Full resuscitation EDMUND is December 26, anticipate 2 midnights necessity for hospital services. This supports his inpatient status. Time-Based Coding :: [TOTAL MINUTES] spent with patient and on the chart (including review of chart, obtaining history, exam, reviewing outside data, placing orders, documenting exam and treatment plan, and counseling patient) on [DATE].
[2024-01-26] MEDS: dilTIAZem CD 180 MG CAP PO (08:27)
[2024-01-26] MEDS: METOPROLOL ER 50 MG TABLET 100 MG PO ×2 (08:28→21:06)
[2024-01-26] MEDS: SODIUM CHLORIDE 0.9% 1,000 ML 100 ML IV ×2 (08:28→19:32)
[2024-01-26] MEDS: APIXABAN 5 MG TABLET PO ×2 (08:28→21:07)
[2024-01-26] MEDS: polyethylene glycoL 3350 17 GM POWD.PACK PO ×2 (08:28→21:06)
[2024-01-26] MEDS: SENNOSIDES 8.6 MG TABLET PO (08:28)
[2024-01-26] MEDS: OXYCODONE IR 5 MG TABLET PO (09:34)
--- NOTE | 2024-01-26 11:13 | OT.IP.EVAL ---
Current Diagnoses Cutaneous abscess of left lower limb (01/25/24) Pain due to internal orthopedic prosthetic devices, implants and grafts, initial encounter (01/25/24) Surgery Performed Operation Date: 01/25/24 14:00 Actual Procedures p Left knee Irrigation and Debridement and Arthrocentesis(Left) - Chica Whitfield MD Past Medical History (Last Reviewed 01/25/24 @ 18:09 by Yimi Madrid MD) Allergic rhinitis Aortic stenosis Atrial fibrillation BPH w/o urinary obs/LUTS Chronic kidney disease (CKD) stage G3a/A1, moderately decreased glomerular filtration rate (GFR) between 45-59 mL/min/1.73 square meter and albuminuria creatinine ratio less than 30 mg/g Chronic, continuous use of opioids DDD (degenerative disc disease), lumbar Essential hypertension Fatigue due to sleep pattern disturbance GERD (gastroesophageal reflux disease) Hyperlipidemia Iron deficiency anemia following bariatric surgery 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 (08/25/20) Normal cardiac ejection fraction (06/03/23) Obesity (BMI 30-39.9) Obstructive sleep apnea, adult Pacemaker Surgical History (Last Reviewed 01/25/24 @ 18:09 by Yimi Madrid MD) H/O gastric bypass H/O left inguinal hernia repair H/O total knee replacement History of cholecystectomy Occupational Therapy Inpatient Evaluation/Re-Eval M1 PT/OT-IP Prior Functional Status Start: 01/26/24 08:30 Freq: NEEDED Status: Active Protocol: Document 01/26/24 12:38 [facility] (Rec: 01/26/24 12:50 [facility] [id number]) Medical Review Prior Functional Status Medical History Reviewed Yes Communication Unsure baseline diet. Pt has word-finding trouble, slow processing and hoarse voice/ voice difficult to understand. Mobility and Gait It appears that patient was transfers only with use of transfer pole and assist from his son. He sleeps in a lift chair and uses w/c in the home , into the BR and transfers onto a tub bench with assist for bathing and dressing from son. Activities of Daily Living and IADL's Pt's gets assist for most ADL needs. Social History Household Members spouse,children Living Arrangements House Number of Stairs To Enter/Railing? Accessible home Home Environment Tub/Shower Home Equipment Manual Wheelchair,Tub Transfer Bench,Grab Bars Near Toilet, Grab Bars In Shower Employment Status Retired Additional Social History Comment Pt reports transfer pole in front of lift chair, it is unclear how he is transferring the BR and he does have son's assistance M2 OT-IP Current Condition Start: 01/26/24 12:37 Freq: Status: Active Protocol: Document 01/26/24 12:38 [facility] (Rec: 01/26/24 12:50 [facility] [id number]) Occupational Therapy Current Condition Current Condition Evaluation Date 01/26/24 Treatment Diagnosis S/P Left thigh abscess drainage Diagnosis Onset Date 01/25/24 Weight Bearing Status Weight Bearing Status Weight Bear as Tolerated M3 OT- IP Subjective and Pain Start: 01/26/24 12:37 Freq: Status: Active Protocol: Document 01/26/24 12:38 [facility] (Rec: 01/26/24 12:50 [facility] [id number]) OT- Subjective Occupational Therapy Visit Type Type Initial Evaluation Visit Start Time 10:54 Visit Stop Time 11:13 Occupational Therapy Visit Comments Patient Comments Pt agreed to try to get up. Patient/Caregiver Goals To go home. OT Pain Assessment Pain When Pain Assessed At Rest Pain Present Pain Present Pain Reported Location Left Knee Intensity 2 Scale Used Numeric (0 - 10) M4 OT- IP ADL's Start: 01/26/24 12:37 Freq: Status: Active Protocol: Document 01/26/24 12:38 [facility] (Rec: 01/26/24 12:50 [facility] [id number]) OT [id number] Comments OT Self-Feeding Comments Not at meal time. OT ADL-Grooming Comments OT Grooming Comments Not performed. OT ADL-Oral Care Comments Oral Care Comments Not performed. OT ADL-Dressing General Eval Lower Body Dressing Ability Total Assistance Areas Needing Assistance Socks OT ADL-Toileting General Evaluation Toileting Ability Total Assistance Areas Needing Assistance Manage Clothing,Perform Perineal Hygiene Comments OT Toileting Comments Total assist at this time while in bed. OT ADL-Bathing Comments OT Bathing Comments Sponge bath more appropriate at this time. M5 OT- IP IADL's Start: 01/26/24 12:37 Freq: Status: Active Protocol: Document 01/26/24 12:38 [facility] (Rec: 01/26/24 12:50 [facility] [id number]) OT-Instrumental Activities of Daily Living Home Safety Awareness Home Safety Comments Pt's son and assist with his needs. Medication Management Medication Management Caregiver Administers Money Management Money Management Caregiver Provides Assistance Meal Preparation Meal Preparation Caregiver Provides Assist Club Concierge Club Concierge Caregiver Provides Assist M6 OT- IP Functional Cognition Start: 01/26/24 12:37 Freq: Status: Active Protocol: Document 01/26/24 12:38 [facility] (Rec: 01/26/24 12:50 [facility] [id number]) Cognitive Factors Limiting Selfcare Function Cognitive Ability Level of Alertness Alert Patient Orientation Name,Birthday,Place,Situation Attention Span Ability Capable of Focused Attention, Capable of Sustained Attention Ability to Follow Commands Able to Follow One Step Commands with Increased Time, Able to Follow One Step Commands with Repetition Cognitive Comments Cognitive Assessment Comments Pt has history of CVA, pt has word finding difficulties and needing increased time to follow commands. OT- Vision and Hearing OT- Vision Assessment Visual Acuity Glasses All The Time Visual Attentiveness WFL M7 OT- IP Mobility and Balance Start: 01/26/24 12:37 Freq: Status: Active Protocol: Document 01/26/24 12:38 [facility] (Rec: 01/26/24 12:50 [facility] [id number]) OT- Bed Mobility Assessment Rolling Level of Assistance Contact Guard Assistance Supine to Sit Supine to Sit Assist Contact Guard Assistance OT-Transfer Assessment Sit to and From Stand Sit to and from Stand Total Assistance,2 Person Assistance Transfers Transfer Ability Total Assistance,2 Person Assistance Technique Transfer Destination Bed,Chair Transfer Technique Squat Pivot Devices Transfer Assistive Devices Gait Belt Comments Mobility Comments CGA with increased time to get to the edge of the bed. Total assist x2 to transfer to the recliner. Pt uses the transfer pole at home and states prior able to stand on his own at times with the transfer pole, otherwise his son assists him. OT- Balance Assessment Sitting Balance and Reactions Static Sitting Balance Ability Fair Dynamic Sitting Balance Ability Fair Standing Balance and Reactions Static Standing Balance Ability Poor Dynamic Standing Balance Ability Poor M8 OT- IP Objective Assessments Start: 01/26/24 12:37 Freq: Status: Active Protocol: Document 01/26/24 12:38 [facility] (Rec: 01/26/24 12:50 [facility] [id number]) OT Gross Range of Motion Upper Extremity Range of Motion Assessment Left Impaired OT Strength Upper Extremity Strength Assessment Left Impaired Comments Strength Comments LUE 3-/5 M9 OT- IP Assessment and Plan Start: 01/26/24 12:37 Freq: Status: Active Protocol: Document 01/26/24 12:38 [facility] (Rec: 01/26/24 12:50 [facility] [id number]) OT Summary Assessment and Plan Potential Rehabilitation Potential Good Analytic Complexity at Evaluation Moderate Summary OT Impairments Pain,Strength,Balance, Functional Mobility,Self- Feeding,Grooming,Dressing, Toileting,Bathing,Toilet Transfers,Shower Transfers, Activity Tolerance Progress Towards Goals Slow Progress due to Medical Issues,Slow Progress due to Activity Tolerance Assessment Summary Pt MOD complexity and main barriers are pain, decreased strength and needing total assist x2 for squat pivot transfer at this time. At home pt uses a lift chair, transfer pole and son to assist as needed. Ideally pt to go home with 24/7 assist and resume HH as pt have home set-up appropriately for him. Otherwise, pt will need skilled rehab. Goals Self-Feeding Goal Standby Assistance Grooming Goal Standby Assistance Dressing Goal Moderate Assistance Toileting Goal Moderate Assistance Bathing Goal Moderate Assistance Toilet Transfer Goal Moderate Assistance Shower Transfer Goal Moderate Assistance Days to Meet Goals 25 Frequency of Treatment Other frequency 5x/week Treatment Plan OT Treatment Plan ADL Training,Functional Mobility,Patient/Family Education,Discharge Planning Discharge Recommendations OT Discharge Recommendations Home with 24/7 Assist Available,Home Health,SNF Rehab,Home vs SNF Transportation Needs at Discharge Wheelchair/Cabulance
--- NOTE | 2024-01-26 11:33 | PT.IIE ---
Current Diagnoses Cutaneous abscess of left lower limb (01/25/24) Pain due to internal orthopedic prosthetic devices, implants and grafts, initial encounter (01/25/24) Surgery Performed Operation Date: 01/25/24 14:00 Actual Procedures p Left knee Irrigation and Debridement and Arthrocentesis(Left) - Chica Whitfield MD Surgical History (Last Reviewed 01/25/24 @ 18:09 by Yimi Madrid MD) H/O gastric bypass H/O left inguinal hernia repair H/O total knee replacement History of cholecystectomy Medical History (Last Reviewed 01/25/24 @ 18:09 by Yimi Madrid MD) Allergic rhinitis Aortic stenosis Atrial fibrillation BPH w/o urinary obs/LUTS Chronic kidney disease (CKD) stage G3a/A1, moderately decreased glomerular filtration rate (GFR) between 45-59 mL/min/1.73 square meter and albuminuria creatinine ratio less than 30 mg/g Chronic, continuous use of opioids DDD (degenerative disc disease), lumbar Essential hypertension Fatigue due to sleep pattern disturbance GERD (gastroesophageal reflux disease) Hyperlipidemia Iron deficiency anemia following bariatric surgery 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 Pt has word-finding trouble, slow processing and hoarse voice/ voice difficult to understand. Mobility and Gait It appears that patient was transfers only with use of transfer pole and assist from his son. He sleeps in a lift chair and uses w/c in the home , into the BR and transfers onto a tub bench with assist for bathing and dressing from son. Social History Household Members spouse,children Living Arrangements House Number of Stairs To Enter/Railing? Accessible home Home Environment Tub/Shower Home Equipment Manual Wheelchair,Tub Transfer Bench,Grab Bars Near Toilet, Grab Bars In Shower Employment Status Retired Additional Social History Comment Pt reports transfer pole in front of lift chair, it is unclear how he is transferring the BR and he does have son's assistance M2 PT-IP Current Condition Start: 01/26/24 08:30 Freq: NEEDED Status: Active Protocol: Document 01/26/24 10:35 MB (Rec: 01/26/24 11:32 MB [id number]) Physical Therapy Current Condition Current Condition Evaluation Date 01/26/24 Treatment Diagnosis History of strokes and leg weakness, acute LLE abscess and I&D M3 PT-IP Subjective Start: 01/26/24 08:30 Freq: NEEDED Status: Active Protocol: Document 01/26/24 10:35 MB (Rec: 01/26/24 11:32 MB [id number]) Subjective Physical Therapy Visit Type Type Initial Evaluation Visit Start Time 10:35 Visit Stop Time 11:00 Number of WAREHOUSE HANDLER Visits 0 Physical Therapy Visit Comments Patient Comments Pt's voice his hoarse and his speech is difficult to understand, trouble with word- finding Therapy Pain Assessment Pain When Pain Assessed At Rest Pain Present Pain Present Pain Reported Location Left Knee Intensity 2 Scale Used [place] (Faces) M4 PT-IP Mobility and Gait Start: 01/26/24 08:30 Freq: NEEDED Status: Active Protocol: Document 01/26/24 10:35 MB (Rec: 01/26/24 11:32 MB [id number]) PT-Bed Mobility Assessment Rolling Level of Assist Contact Guard Assistance,1 Person Assistance Supine to Sit Supine to Sit Contact Guard Assistance,1 Person Assistance,Head of Bed Elevated,Bedrails Scooting Scooting to Edge of Bed Contact Guard Assistance PT-Transfer Assessment Equipment Transfer Assistive Device Gait Belt Orthotic/Prosthetic Devices or Brace: No Transfers Transfer Destination Chair Transfer Technique Stand Pivot Transfer Ability Level of Assist Total Assistance,2 Person Assistance,Use of Upper Extremities Comments Mobility Comments Heavy use of mechanical bed for bed mobility: HOB increased, use of head rail and use of lower bed rail for supine to sit and to scoot out to EOB, increased time, pt has functional weakness greater in left arm. 2 therapist assist for SPT to the right: pt reaches for opposite arm of chair and PT blocks right foot and left foot with decreased WB tolerance and total assist of two therapists to make the transfer. Pt with incontinence in brief and spoke with IT TRAINER about need for total lift for back to bed when able to assist with hygiene. PT-Balance Assessment Sitting Balance and Reactions Static Sitting Balance Ability Fair Dynamic Sitting Balance Ability Fair Standing Balance and Reactions Static Standing Balance Ability Poor Dynamic Standing Balance Ability Poor Device Used Unable to stand full upright M5 PT-IP Objective Assessments Start: 01/26/24 08:30 Freq: NEEDED Status: Active Protocol: Document 01/26/24 10:35 MB (Rec: 01/26/24 11:32 MB [id number]) Orientation Orientation/Cognition Level of Alertness Alert Orientation Name,Birthday,Place,Situation Language Function Ability Word Finding Difficulties Safety Awareness Decreased Safety Awareness Comments Pt with trouble with communication and this is a barrier to orientation questions and providing PLOF Gross Range of Motion Upper Extremity ROM Assessment Bilaterally Impaired Impairments Defer to OT note Lower Extremity ROM Assessment Bilaterally Impaired Impairments LLE with more impairment than the right but limited range and strength both legs all joints, pt does not tolerate ROM or MMT well today Strength Lower Extremity Strength Assessment Bilaterally Impaired Comments Strength Comments Severely weak legs with more changes on the right and celina wrap and dressing today Coordination Assessment Gross Coordination Gross Coordination Impaired Assessment Coordination Comments Pt does not tolerate formal testing Sensation Assessment Comments Sensation Comments Pt does not tolerate formal testing Muscle Tone Muscle Tone WNL No Comments Muscle Tone Comments Increased PF tone M6 PT-IP Treatment Start: 01/26/24 08:30 Freq: NEEDED Status: Active Protocol: Document 01/26/24 10:35 MB (Rec: 01/26/24 11:32 MB [id number]) Physical Therapy Treatment Exercises Exercises Ankle Pumps Education Education Provided Safety M7 PT-IP Assessment and Plan Start: 01/26/24 08:30 Freq: NEEDED Status: Active Protocol: Document 01/26/24 10:35 MB (Rec: 01/26/24 11:32 MB [id number]) PT Summary Assessment and Plan Potential Rehabilitation Potential Fair Status of Condition at Evaluation Evolving Summary Impairments Pain,ROM,Strength,Balance, Coordination,Sensation,Tone, Cognition,Bed Mobility, Transfers,Activity Tolerance Assessment Summary Pt is a 68 y/o male with history of strokes and weakness who was adm with left knee abscess and he is s/p I& D with leg dressed today and PT cannot see area of abscess. He has globalized LE weakness and mild edema and limited function of left arm. He has extensive trouble verbalizing and this makes history taking challenging. He makes a good effort with PT today and requires total assist of 2 therapists for SPT to the right to the chair. He has good support from son at home and also lives with . SNF vs home with assist and HH currently. He will need to require less assistance to d/c home safely at this time. Goals Transfer Goal Minimal Assistance Other Goals Pt will perform SPT to the right with no more than min A, LRAD and gait belt. No bed mobility goal as pt does not sleep in a bed at home and no gait goal as he does not walk. No w/c mobility goal as pt states that his son pushes him in the house. Days to Meet Goals 5 Frequency of Treatment Frequency Of Treatment Once a Day Treatment Plan Physical Therapy Treatment Plan Bed Mobility Training,Transfer Training,Therapeutic Exercise ,Balance Retraining,Discharge Planning,Hot or Cold Pack, Neuromuscular Re-ed, Coordination Retraining,Manual Therapy Precautions Other Precautions Fall risk Weight Bearing Status Weight Bearing Status Weight Bear as Tolerated Recommendations To Nursing Amount of Assist Needed Mechanical Lift Discharge Recommendations PT Discharge Recommendations Home with 24/7 Assist Available,Home Health,Home vs SNF Transportation Needs at Discharge Private Vehicle,Wheelchair/ Cabulance
[2024-01-26] MEDS: VANCOMYCIN TROUGH 1 REQUEST MISC (14:55)
--- NOTE | 2024-01-26 15:01 | P.PN_ITS ---
Subjective Subjective Interval history: Santiago is a pleasant 68 year old male who is POD#1 s/p deep I&D of a left leg abscess and an arthrocentesis of the left knee joint by Dr. Whitfield. This afternoon patient reports he is doing okay, he denies any pain. He worked w/ PT today to get up and over to his bedside chair, he denies any significant pain w/ WB. He lives at home w/ and son who are willing and able to aid in his post-op care, he reports he plans to d/c to home to them once stable. He has been on Vanco prophylactically, cultures from sx are still pending. Denies fever, chills, chest pain, SOB. Exam Vital Signs (past 8 hours): - 01/26/24 08:00 01/26/24 08:28 01/26/24 12:00 Temperature 97.9 F 97.3 F L Pulse Rate 82 82 75 Respiratory Rate 18 16 Blood Pressure 106/71 106/71 118/71 Pulse Oximetry 96 98 Oxygen Flow Rate 0 01/26/24 12:00 Temperature Pulse Rate 75 Respiratory Rate Blood Pressure Pulse Oximetry Oxygen Flow Rate Oxygen Delivery Method Room Air Oxygen Flow Rate 0 Narrative Exam Narrative: Patient lying comfortably in bed during our interview today. No acute distress. AOx3. 5/5 strength with DF, PF, EHL bilaterally. Gross sensation intact throughout bilateral lower extremities. Calves soft and non-tender bilaterally. SCDs are on and functioning. Brisk capillary refill, pulses intact. Post-surgical Aquacel dressing in place over the left knee, saturated w/ bloody drainage. Objective Labs 01/26/24 05:00 01/26/24 05:00 Labs: Laboratory Results - last 24 hr 01/25/24 01/26/24 13:20 05:00 WBC 8.7 RBC 4.89 Hgb 13.6 Hct 41.3 MCV 84.5 MCH 27.9 MCHC 33.0 RDW 16.3 H Plt Count 209 Neut % (Auto) 87.4 H Lymph % (Auto) 9.7 L [place] % (Auto) 2.7 L Eos % (Auto) 0.0 L Baso % (Auto) 0.2 Neut # (Auto) 7600 H Lymph # (Auto) 800 L [place] # (Auto) 200 Eos # (Auto) 0 Baso # (Auto) 0 ESR 14 Sodium 131 L D Potassium 4.8 Chloride 101 Carbon Dioxide 24 BUN 24 H Creatinine 0.90 Estimated GFR > 60 BUN/Creatinine Ratio 26.7 H Glucose 134 H Calcium 9.4 PFSH Medical History Normal cardiac ejection fraction (06/03/23) Aortic stenosis Chronic, continuous use of opioids Iron deficiency anemia following bariatric surgery BPH w/o urinary obs/LUTS DDD (degenerative disc disease), lumbar Pacemaker Allergic rhinitis Obstructive sleep apnea, adult Obesity (BMI 30-39.9) Hyperlipidemia Fatigue due to sleep pattern disturbance GERD (gastroesophageal reflux disease) Essential hypertension 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 (08/25/20) Left inguinal hernia Chronic kidney disease (CKD) stage G3a/A1, moderately decreased glomerular filtration rate (GFR) between 45-59 mL/min/1.73 square meter and albuminuria creatinine ratio less than 30 mg/g Atrial fibrillation Surgical History H/O total knee replacement H/O left inguinal hernia repair History of cholecystectomy H/O gastric bypass Family History Family/Other Loud snoring Dementia Father Loud snoring Obesity Hypertension Heart disease Mother Loud snoring Obesity Hypertension Depression Anxiety Family/Other Hypertension Depression Social History household members: spouse and children Smoking Status: Never smoker alcohol intake: never Assessment & Plan Post-op Postoperative Procedures: Procedures Operation Date: 01/25/24 14:00 Actual Procedure Side Surgeon p Left knee Irrigation and Debridement and Arthrocentesis Left Chica Whitfield MD Postoperative plan narrative: 1) Continue Eliquis 5 mg b.i.d. 2) Empiric vancomycin until cultures return. We will likely require Infectious Disease consultation. Cultures are still pending at this time. If knee aspirate grows bacteria may need additional treatment of prosthetic joint infection versus chronic antibiotic suppression. Given the patient's comorbidities, chronic suppression with retaining knee prosthesis, if possible, may be the best outcome for him. 3) Will plan to change Aquacel dressing tomorrow, dressing can be changed as needed. Sutures to remain in place at least 2 weeks until follow up with orthopaedic surgery outpatient. 4) WBAT and activity as tolerated.
--- NOTE | 2024-01-26 15:22 | CM.DANOTE ---
Initial DCP Assessment Note Pt is a 68 yo male, resident of [place], admitted postop after a left thigh abscess drainage. Cultures pending. PCP: Natasha Carroll Payer: Kirt ROSEN Reviewed chart, met w/patient, spouse Freda and son Kulwinder. Patient is wheelchair dependent since his stroke and needs assist from his son Kulwinder with all ADLs. Patient is able to use a transfer pole for transfers, son transports patient with help from a slider board. Son Kulwinder assist spouse Freda also, who attends dialysis x3 weekly in [place] and fatigues easily. Patient's speech is slow, somewhat garbled, processing speed unknown since CVA. Son Kulwinder explains patient had [facility] which recently ended and they would like [facility] again for RN/PT/OT/TRANS ROUTER. Patient/spouse are in that gap in which they do not qualify for Medicaid but cannot afford much in home care. Patient/sp have hired a caregiver to give their son respite x2 a week for 2 hours each visit 5:45p-7:45p. Family anticipates having patient home upon discharge w/[facility] services. CM team following clinical course closely. NEWTON Breewr Discharge Planning/Care Management CM Discharge Assessment Start: 01/26/24 15:20 Freq: Status: Active Protocol: Document 01/26/24 15:20 LESTER (Rec: 01/26/24 15:22 LESTER [id number]) Discharge Planning Assessment Assigned Line Up Worker NEWTON Abraham DPOA/Assigned Designee Name omi Marin Contact Information [phone] Advance Directives? No History Provided By Patient,Family Member,Medical Record Prior Living Arrangements House Household Members spouse,children Type of transporation used prior to Relies on Others admit Independent with ADL's No Is patient alert and oriented? Yes: Slow speech, slow processing (?) since CVA Needs Assistance With Bathing,Grooming,Meal Prep, Toileting,Managing Medications ,Home Chores / Shopping Patient/Family Preference Home with Home Health Comment Needs TBD. Cultures pending. Transportation Arrangement TBD
[2024-01-26] MEDS: FLEETS ENEMA 1 EACH PR (15:45)
[2024-01-26 15:52] LABS: Vancomycin Trough 13.4 ug/mL (10-20)
[2024-01-26] MEDS: VANCOMYCIN PEAK 1 REQUEST MISC (17:59)
[2024-01-26 18:42] LABS: Vancomycin Peak 21.6 ug/mL (20-40)
[2024-01-26] MEDS: ATORVASTATIN 20 MG TABLET 10 MG PO (21:06)
[2024-01-27] VITALS (8 sets, daily range): BP systolic 101–124; BP diastolic 57–74; PULSE 68–72; RESP 16–18; TEMP 36.4–36.9; O2SAT 96–100
[2024-01-27] MEDS: VANCOMYCIN 1,000 MG/200 ML PIGGYBACK 200 MG IV ×4 (00:12→23:08)
[2024-01-27] MEDS: OXYCODONE IR 5 MG TABLET PO ×3 (00:25→20:20)
[2024-01-27] MEDS: PANTOPRAZOLE DR 40 MG TABLET PO (06:11)
[2024-01-27] MEDS: SODIUM CHLORIDE 0.9% 1,000 ML 100 ML IV (06:12)
[2024-01-27] MEDS: METOPROLOL ER 50 MG TABLET 100 MG PO ×2 (09:25→20:19)
[2024-01-27] MEDS: APIXABAN 5 MG TABLET PO ×2 (09:26→20:19)
[2024-01-27] MEDS: dilTIAZem CD 180 MG CAP PO (09:26)
[2024-01-27] MEDS: ACETAMINOPHEN 325 MG TABLET 650 MG PO (09:26)
--- NOTE | 2024-01-27 11:35 | PT.IPTN ---
Current Diagnoses Cutaneous abscess of left lower limb (01/25/24) Pain due to internal orthopedic prosthetic devices, implants and grafts, initial encounter (01/25/24) Surgery Performed Operation Date: 01/25/24 14:00 Actual Procedures p Left knee Irrigation and Debridement and Arthrocentesis(Left) - Chica Whitfield MD Physical Therapy Treatment Note M2 PT-IP Current Condition Start: 01/26/24 08:30 Freq: NEEDED Status: Active Protocol: Document 01/26/24 10:35 MB (Rec: 01/26/24 11:32 MB [id number]) Physical Therapy Current Condition Current Condition Evaluation Date 01/26/24 Treatment Diagnosis History of strokes and leg weakness, acute LLE abscess and I&D M3 PT-IP Subjective Start: 01/26/24 08:30 Freq: NEEDED Status: Active Protocol: Document 01/27/24 11:35 AB (Rec: 01/27/24 12:43 AB [id number]) Subjective Physical Therapy Visit Type Type Treatment Note Visit Start Time 11:35 Visit Stop Time 12:15 Number of VOCATIONAL REHABILITATION SPECIALIST Visits 0 Physical Therapy Visit Comments Patient Comments agreed to do PT M4 PT-IP Mobility and Gait Start: 01/26/24 08:30 Freq: NEEDED Status: Active Protocol: Document 01/27/24 11:35 AB (Rec: 01/27/24 12:43 AB [id number]) PT-Bed Mobility Assessment Supine to Sit Supine to Sit Maximum Assistance,2 Person Assistance,Head of Bed Elevated,Bedrails Scooting Scooting to Edge of Bed Maximum Assistance PT-Transfer Assessment Sit to and From Stand Sit to and from Stand Maximum Assistance,2 Person Assistance,Use of Upper Extremities Equipment Transfer Assistive Device Gait Belt,Front Wheeled Walker Orthotic/Prosthetic Devices or Brace: No Transfers Transfer Destination Chair Transfer Technique Stand Step Pivot Transfer Ability Level of Assist Maximum Assistance,2 Person Assistance,Use of Upper Extremities Comments Mobility Comments pt in bed and agreeable to do PT. pt with difficulty speaking and has word finding difficulty. completed supine to sit max A and max cues. increase posterior trunk lean needing max A for sitting balance. max X 2 for scooting EOB. completed sit to stand from EOB with bed elevated max A x 2 and max cues. step transfer to chair using fWW max A x 2 and max cues. attempted to do sit to stand form chair but pt unable. positioned pt on the chair. call light and table placed within reach. M5 PT-IP Objective Assessments Start: 01/26/24 08:30 Freq: NEEDED Status: Active Protocol: Document 01/26/24 10:35 MB (Rec: 01/26/24 11:32 MB [id number]) Orientation Orientation/Cognition Level of Alertness Alert Orientation Name,Birthday,Place,Situation Language Function Ability Word Finding Difficulties Safety Awareness Decreased Safety Awareness Comments Pt with trouble with communication and this is a barrier to orientation questions and providing PLOF Gross Range of Motion Upper Extremity ROM Assessment Bilaterally Impaired Impairments Defer to OT note Lower Extremity ROM Assessment Bilaterally Impaired Impairments LLE with more impairment than the right but limited range and strength both legs all joints, pt does not tolerate ROM or MMT well today Strength Lower Extremity Strength Assessment Bilaterally Impaired Comments Strength Comments Severely weak legs with more changes on the right and celina wrap and dressing today Coordination Assessment Gross Coordination Gross Coordination Impaired Assessment Coordination Comments Pt does not tolerate formal testing Sensation Assessment Comments Sensation Comments Pt does not tolerate formal testing Muscle Tone Muscle Tone WNL No Comments Muscle Tone Comments Increased PF tone M6 PT-IP Treatment Start: 01/26/24 08:30 Freq: NEEDED Status: Active Protocol: Document 01/27/24 11:35 AB (Rec: 01/27/24 12:43 AB [id number]) Physical Therapy Treatment Education Education Provided Safety M7 PT-IP Assessment and Plan Start: 01/26/24 08:30 Freq: NEEDED Status: Active Protocol: Document 01/27/24 11:35 AB (Rec: 01/27/24 12:43 AB [id number]) PT Summary Assessment and Plan Potential Rehabilitation Potential Fair Summary Impairments Pain,ROM,Strength,Balance, Coordination,Sensation,Tone, Cognition,Bed Mobility, Transfers,Gait,Activity Tolerance Assessment Summary pt requiring max A x 2 for transfers using FWW. pt has been using a transfer pole for transfers at home and son assists pt. pt informed PT that he has HHPT and has been working on standing using his UP walker and was walking using // bars when he was at [facility] re[facility]. d/c plan depending on progress and if son will continue to be able to provide assistance to pt. will continue to assess. Goals Transfer Goal Minimal Assistance,Front Wheeled Walker Gait Goal Moderate Assistance,Front Wheel Walker Gait Distance 20 Days to Meet Goals 10 Frequency of Treatment Frequency Of Treatment Once a Day Treatment Plan Physical Therapy Treatment Plan Bed Mobility Training,Transfer Training,Therapeutic Exercise ,Balance Retraining,Discharge Planning,Hot or Cold Pack, Neuromuscular Re-ed, Coordination Retraining,Manual Therapy Precautions Other Precautions Fall risk Recommendations To Nursing Amount of Assist Needed Mechanical Lift Discharge Recommendations PT Discharge Recommendations Home with 04/10 Assist Available,Home Health,SNF Rehab,Home vs SNF Transportation Needs at Discharge Wheelchair/Cabulance
--- NOTE | 2024-01-27 12:04 | OT.IP.TRT ---
Current Diagnoses Cutaneous abscess of left lower limb (01/25/24) Pain due to internal orthopedic prosthetic devices, implants and grafts, initial encounter (01/25/24) Surgery Performed Operation Date: 01/25/24 14:00 Actual Procedures p Left knee Irrigation and Debridement and Arthrocentesis(Left) - Chica Whitfield MD Occupational Therapy Treatment Note M2 OT-IP Current Condition Start: 01/26/24 12:37 Freq: Status: Active Protocol: Document 01/26/24 12:38 [facility] (Rec: 01/26/24 12:50 [facility] [id number]) Occupational Therapy Current Condition Current Condition Evaluation Date 01/26/24 Treatment Diagnosis S/P Left thigh abscess drainage Diagnosis Onset Date 01/25/24 Weight Bearing Status Weight Bearing Status Weight Bear as Tolerated M3 OT- IP Subjective and Pain Start: 01/26/24 12:37 Freq: Status: Active Protocol: Document 01/27/24 12:26 [facility] (Rec: 01/27/24 12:37 [facility] [id number]) OT- Subjective Occupational Therapy Visit Type Type Treatment Note Visit Start Time 11:15 Visit Stop Time 12:04 Occupational Therapy Visit Comments Patient Comments Pt agreed to get up. Patient/Caregiver Goals To go home. OT Pain Assessment Pain When Pain Assessed At Rest Pain Present Pain Present Pain Reported Location Left Knee Intensity 6 Scale Used Numeric (0 - 10) M4 OT- IP ADL's Start: 01/26/24 12:37 Freq: Status: Active Protocol: Document 01/27/24 12:26 [facility] (Rec: 01/27/24 12:37 [facility] [id number]) OT [id number] Comments OT Self-Feeding Comments Not at meal time. OT ADL-Grooming Comments OT Grooming Comments Pt states did prior. OT ADL-Oral Care Comments Oral Care Comments Pt states did prior. OT ADL-Dressing General Eval Lower Body Dressing Ability Total Assistance Areas Needing Assistance Socks,Shoes OT ADL-Toileting Comments OT Toileting Comments Not performed. OT ADL-Bathing Comments OT Bathing Comments Sponge bath more appropriate at this time. M5 OT- IP IADL's Start: 01/26/24 12:37 Freq: Status: Active Protocol: Document 01/26/24 12:38 [facility] (Rec: 01/26/24 12:50 [facility] [id number]) OT-Instrumental Activities of Daily Living Home Safety Awareness Home Safety Comments Pt's son and assist with his needs. Medication Management Medication Management Caregiver Administers Money Management Money Management Caregiver Provides Assistance Meal Preparation Meal Preparation Caregiver Provides Assist School Childcare Attendant School Childcare Attendant Caregiver Provides Assist M6 OT- IP Functional Cognition Start: 01/26/24 12:37 Freq: Status: Active Protocol: Document 01/27/24 12:26 [facility] (Rec: 01/27/24 12:37 [facility] [id number]) Cognitive Factors Limiting Selfcare Function Cognitive Comments Cognitive Assessment Comments Pt having difficulty to get the words out and initiate his movements. Pt more alert today and able to talk about his prior level of care more. Pt states uses a transfer pole to get from lift chair to manual wc. Use of rotating disc and grab bar to get to the tub bench. Pt states his son assist for all his transfers. Pt states PT home health has been working on standing tolerance with an up walker and transfer pole and has been able to stand for 2-3 minutes. M7 OT- IP Mobility and Balance Start: 01/26/24 12:37 Freq: Status: Active Protocol: Document 01/27/24 12:26 [facility] (Rec: 01/27/24 12:37 [facility] [id number]) OT- Bed Mobility Assessment Supine to Sit Supine to Sit Assist Maximum Assistance,2 Person Assistance OT-Transfer Assessment Sit to and From Stand Sit to and from Stand Maximum Assistance,2 Person Assistance Transfers Transfer Ability Maximum Assistance,2 Person Assistance Technique Transfer Destination Bed,Chair Transfer Technique Stand Step Pivot Devices Transfer Assistive Devices Gait Belt,Front Wheeled Walker Comments Mobility Comments MAX A x2 to stand from high bed, assist to keep his RLE from externally rotating, heavy assist to stand. MAX vc for safety. Heavy assist to help lower to the recliner. OT- Balance Assessment Sitting Balance and Reactions Static Sitting Balance Ability Poor Dynamic Sitting Balance Ability Poor Standing Balance and Reactions Static Standing Balance Ability Poor Dynamic Standing Balance Ability Poor Comments Other Balance Tests/Deviations/Treatment Pt heavily leaning into : posterior tilt. Pt needing lots of cues to lean forwards so able to help scooting and shifting his weight prior to assist to stand. M8 OT- IP Objective Assessments Start: 01/26/24 12:37 Freq: Status: Active Protocol: Document 01/26/24 12:38 [facility] (Rec: 01/26/24 12:50 [facility] [id number]) OT Gross Range of Motion Upper Extremity Range of Motion Assessment Left Impaired OT Strength Upper Extremity Strength Assessment Left Impaired Comments Strength Comments KIM 3-/5 M9 OT- IP Assessment and Plan Start: 01/26/24 12:37 Freq: Status: Active Protocol: Document 01/27/24 12:26 [facility] (Rec: 01/27/24 12:37 [facility] [id number]) OT Summary Assessment and Plan Potential Rehabilitation Potential Good Analytic Complexity at Evaluation Moderate Summary OT Impairments Pain,Strength,Balance, Functional Mobility,Self- Feeding,Grooming,Dressing, Toileting,Bathing,Toilet Transfers,Shower Transfers, Activity Tolerance Progress Towards Goals Slow Progress due to Pain,Slow Progress due to Medical Issues,Slow Progress due to Activity Tolerance Assessment Summary Pt able to participate andn trial of use of FWW for transfer today. Pt needig MAX XA 2 and heavy physical assist , cueing and skilled therapist to assist pt. Pt at this time best to use GUILLERMO lift for transfres. Pt uses a transfer pole at home. Pending progress and medicaly needs home with 24/7 assist and resume home health versus SNF. Goals Self-Feeding Goal Standby Assistance Grooming Goal Standby Assistance Dressing Goal Moderate Assistance Toileting Goal Moderate Assistance Bathing Goal Moderate Assistance Toilet Transfer Goal Moderate Assistance Shower Transfer Goal Moderate Assistance Days to Meet Goals 25 Frequency of Treatment Other frequency 5x/week Treatment Plan OT Treatment Plan ADL Training,Functional Mobility,Patient/Family Education,Discharge Planning Discharge Recommendations OT Discharge Recommendations SNF Rehab, Home with 24/7 Assist Available,Home Health, Home vs SNF Transportation Needs at Discharge Wheelchair/Cabulance
--- NOTE | 2024-01-27 12:08 | CM.DPNOTE ---
Addendum entered by NEWTON Hull 01/27/24 13:38: SNF Update: [facility]- No beds. [facility]- Need update when culture results are back. [place]- Reviewing. Original Note: DCP Cont Reviewed chart. It appears patient may need SNF for skilled therapies, possibly ongoing IV abx. SNF search should begin as patient has [employer] [facility] and thus auth will need to be obtained. Placed call to spouse Freda to review SNF options. Spouse remains hopeful patient can return home, gives permission for referrals to the following: [facility], [facility] and [facility]. Emailed Anita at [facility], Seble at [facility] and faxed Radha at [facility]. PASRR completed. CM team following clinical course closely. LESTER
--- NOTE | 2024-01-27 16:09 | PM.PNPO.1 ---
Subjective Subjective Interval history: Santiago is a pleasant 68 year old male who is POD#2 s/p deep I&D of a left leg abscess and an arthrocentesis of the left knee joint by Dr. Whitfield. This afternoon patient reports he is doing okay, he reports only mild pain. He was able to get up and work w/ PT today. He does have some impairments from prior strokes. He denies any significant pain w/ WB. He lives at home w/ and son who are willing and able to aid in his post-op care, he reports he would prefer to d/c to home to them once stable. He has been on Vanco prophylactically, cultures from sx are still pending. Denies fever, chills, chest pain, SOB, nausea, vomiting. Exam Vital Signs (past 8 hours): - 01/27/24 09:25 01/27/24 12:00 Temperature 97.8 F Pulse Rate 71 72 Respiratory Rate 18 Blood Pressure 121/67 124/67 Pulse Oximetry 100 Oxygen Flow Rate 0 Oxygen Delivery Method Room Air Oxygen Flow Rate 0 Narrative Exam Narrative: Patient sitting comfortably in bedside chair during our interview today. No acute distress. AOx3. 5/5 strength with DF, PF, EHL bilaterally. Gross sensation intact throughout bilateral lower extremities. Calves soft and non-tender bilaterally. SCDs are on and functioning. Brisk capillary refill, pulses intact. Post-surgical Aquacel dressing in place over the left knee, saturated w/ bloody drainage. 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) Left inguinal hernia Chronic kidney disease (CKD) stage G3a/A1, moderately decreased glomerular filtration rate (GFR) between 45-59 mL/min/1.73 square meter and albuminuria creatinine ratio less than 30 mg/g Atrial fibrillation Surgical History H/O total knee replacement H/O left inguinal hernia repair History of cholecystectomy H/O gastric bypass Family History Family/Other Loud snoring Dementia Father Loud snoring Obesity Hypertension Heart disease Mother Loud snoring Obesity Hypertension Depression Anxiety Family/Other Hypertension Depression Social History household members: spouse and children Smoking Status: Never smoker alcohol intake: never Assessment & Plan Post-op Postoperative Procedures: Procedures Operation Date: 01/25/24 14:00 Actual Procedure Side Surgeon p Left knee Irrigation and Debridement and Arthrocentesis Left Chica Whitfield MD Postoperative plan narrative: 1) Continue Eliquis 5 mg b.i.d. 2) Empiric vancomycin until cultures return. We will likely require Infectious Disease consultation. Cultures are still pending at this time. If knee aspirate grows bacteria may need additional treatment of prosthetic joint infection versus chronic antibiotic suppression. Given the patient's comorbidities, chronic suppression with retaining knee prosthesis, if possible, may be the best outcome for him. 3) Post-surgical Aquacel dressing changed by me today, dressing can be changed as needed. Sutures to remain in place at least 2 weeks until follow up with orthopaedic surgery outpatient. 4) WBAT and activity as tolerated. 5) Continue multimodal pain management PRN, ice the the knee for additional pain control. Patient has many questions about SNF/insurance authorization which would best be answered by CM.
--- NOTE | 2024-01-27 16:51 | PM.PN.1 ---
Subjective Subjective Date Patient Seen: 01/27/24 Time Patient Seen: 12:10 Interval history: Summary: He was admitted postop after a left thigh abscess drainage. He was started on antibiotics, anticoagulation was resumed. He was chronic weakness of his legs relating to strokes as well as chronic dysphagia. Nursing notes that he has a lower sodium today and appears to be dry. He was not eating much, we will start IV fluids. He was also been constipated and had no effect with a suppository last night. S: He states pain is much improved and constipation resolved. Exam Vital Signs (past 8 hours): - 01/27/24 09:25 01/27/24 12:00 Temperature 97.8 F Pulse Rate 71 72 Respiratory Rate 18 Blood Pressure 121/67 124/67 Pulse Oximetry 100 Oxygen Flow Rate 0 Oxygen Delivery Method Room Air Oxygen Flow Rate 0 Narrative Exam Narrative: NAD, alert and oriented. Slow and slurred speech, chronic. Lungs are clear, normal rate and effort. Heart is regular, no murmur gallop or rub. Abdomen is soft, non distended. Extremities are free of edema. Left knee unwrapped and examined, dressing in place, normal surrounding skin. 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) Left inguinal hernia Chronic kidney disease (CKD) stage G3a/A1, moderately decreased glomerular filtration rate (GFR) between 45-59 mL/min/1.73 square meter and albuminuria creatinine ratio less than 30 mg/g Atrial fibrillation Surgical History H/O total knee replacement H/O left inguinal hernia repair History of cholecystectomy H/O gastric bypass Family History Family/Other Loud snoring Dementia Father Loud snoring Obesity Hypertension Heart disease Mother Loud snoring Obesity Hypertension Depression Anxiety Family/Other Hypertension Depression Social History household members: spouse and children Smoking Status: Never smoker alcohol intake: never Assessment & Plan Assessment & Plan narrative: 1. Left lateral leg cellulitis and abscess, present on admission and active. -continue Abx. Rocephin and Vanco. -status post incision and drainage on January 24. -follow cultures, ID consultation to follow. 2. Chronic diastolic heart failure, present on admission and stable. 3. Dysphagia with regurgitation, chronic and active. -patient notes food stuck in his esophagus for the past week, has history of dysphagia 4. A-fib, present on admission and stable. -continue apixiban 7. Hyperlipidemia. Present on admission and active. 8. GERD. Present on admission and active. - Continue pantoprazole 9. BPH. Present on admission and active. -Continue Flomax 10. Constipation. Present on admission and resolved. PLAN: -Phys therapy -continue vancomycin and await cultures from incision and drainage (no growth to date) Full resuscitation EDMUND is01/27, anticipate 2 midnights necessity for hospital services. This supports his inpatient status. PROFEE Charge codes Subsequent inpatient/observation care: 24709
[2024-01-27] MEDS: ATORVASTATIN 20 MG TABLET 10 MG PO (20:19)
[2024-01-28] VITALS (8 sets, daily range): BP systolic 93–124; BP diastolic 45–75; PULSE 70–82; RESP 12–22; TEMP 36.1–36.6; O2SAT 94–99
[2024-01-28] MEDS: ACETAMINOPHEN 325 MG TABLET 650 MG PO ×2 (02:41→20:23)
[2024-01-28 05:20] LABS: BUN Creatinine Ratio 25.8 (6-22); Blood Urea Nitrogen 24 mg/dL (9-20); Calcium 9.1 mg/dL (8.4-10.2); Carbon Dioxide 23 mmol/L (22-32); Chloride 106 mmol/L (98-107); Estimated Glomerular Filt Rate > 60 mL/min (>60); Glucose 103 mg/dL (80-110); HEMOLYSIS < 15 (0-50); Potassium 4.4 mmol/L (3.4-5.1); Sodium 135 mmol/L (137-145)
[2024-01-28] MEDS: VANCOMYCIN 1,000 MG/200 ML PIGGYBACK 200 MG IV ×2 (06:01→14:43)
[2024-01-28] MEDS: PANTOPRAZOLE DR 40 MG TABLET PO (06:01)
[2024-01-28] MEDS: dilTIAZem CD 180 MG CAP PO (08:22)
[2024-01-28] MEDS: APIXABAN 5 MG TABLET PO ×2 (08:22→20:23)
[2024-01-28] MEDS: METOPROLOL ER 50 MG TABLET 100 MG PO (08:22)
--- NOTE | 2024-01-28 10:55 | PT.IPTN ---
Current Diagnoses Cutaneous abscess of left lower limb (01/25/24) Pain due to internal orthopedic prosthetic devices, implants and grafts, initial encounter (01/25/24) Surgery Performed Operation Date: 01/25/24 14:00 Actual Procedures p Left knee Irrigation and Debridement and Arthrocentesis(Left) - Chica Whitfield MD Physical Therapy Treatment Note M2 PT-IP Current Condition Start: 01/26/24 08:30 Freq: NEEDED Status: Active Protocol: Document 01/26/24 10:35 MB (Rec: 01/26/24 11:32 MB [id number]) Physical Therapy Current Condition Current Condition Evaluation Date 01/26/24 Treatment Diagnosis History of strokes and leg weakness, acute LLE abscess and I&D M3 PT-IP Subjective Start: 01/26/24 08:30 Freq: NEEDED Status: Active Protocol: Document 01/28/24 10:55 AB (Rec: 01/28/24 13:03 AB [id number]) Subjective Physical Therapy Visit Type Type Treatment Note Visit Start Time 10:55 Visit Stop Time 11:20 Number of HEALTH POLICY ANALYST Visits 0 Physical Therapy Visit Comments Patient Comments agreeable to do PT M4 PT-IP Mobility and Gait Start: 01/26/24 08:30 Freq: NEEDED Status: Active Protocol: Document 01/28/24 10:55 AB (Rec: 01/28/24 13:03 AB [id number]) PT-Bed Mobility Assessment Supine to Sit Supine to Sit Maximum Assistance,1 Person Assistance,2 Person Assistance ,Head of Bed Elevated,Bedrails PT-Transfer Assessment Sit to and From Stand Sit to and from Stand Maximum Assistance,2 Person Assistance,Use of Upper Extremities Equipment Transfer Assistive Device Gait Belt,Front Wheeled Walker Orthotic/Prosthetic Devices or Brace: No Transfers Transfer Destination Chair Transfer Technique Stand Step Pivot Transfer Ability Level of Assist Maximum Assistance,2 Person Assistance,Use of Upper Extremities Comments Mobility Comments pt supine in bed and agreeable to do PT. completed supine to sit max Ax 1-2 and max cues. max A x 2 for scooting to EOB. presents with increase posterior trunk leaning and cued for upright posture. pt completed sit to stand from EOB max Ax 2 and max cues with bed height elevated. completed step transfer to chair using FWW max A x 2 and max cues. assisted with weight shifting to be able to move LE. pt sat on chair max Ax 2 for controlled descent. pt agreed to stand again. completed sit to stand from chair max A x 2 and max cues. max A x 2 for standing balance using fWW for support. cued on pushing FWW for support in standing. tolerated ~ 15 sec standing. pt sat back on chair. positioned pt in the chair. call light and table placed within reach. pt informed PT that he was walking with a FWW [facility] to [facility] but was not walking afterwards when he got home. M5 PT-IP Objective Assessments Start: 01/26/24 08:30 Freq: NEEDED Status: Active Protocol: Document 01/26/24 10:35 MB (Rec: 01/26/24 11:32 MB [id number]) Orientation Orientation/Cognition Level of Alertness Alert Orientation Name,Birthday,Place,Situation Language Function Ability Word Finding Difficulties Safety Awareness Decreased Safety Awareness Comments Pt with trouble with communication and this is a barrier to orientation questions and providing PLOF Gross Range of Motion Upper Extremity ROM Assessment Bilaterally Impaired Impairments Defer to OT note Lower Extremity ROM Assessment Bilaterally Impaired Impairments LLE with more impairment than the right but limited range and strength both legs all joints, pt does not tolerate ROM or MMT well today Strength Lower Extremity Strength Assessment Bilaterally Impaired Comments Strength Comments Severely weak legs with more changes on the right and celina wrap and dressing today Coordination Assessment Gross Coordination Gross Coordination Impaired Assessment Coordination Comments Pt does not tolerate formal testing Sensation Assessment Comments Sensation Comments Pt does not tolerate formal testing Muscle Tone Muscle Tone WNL No Comments Muscle Tone Comments Increased PF tone M6 PT-IP Treatment Start: 01/26/24 08:30 Freq: NEEDED Status: Active Protocol: Document 01/28/24 10:55 AB (Rec: 01/28/24 13:03 AB [id number]) Physical Therapy Treatment Education Education Provided Safety M7 PT-IP Assessment and Plan Start: 01/26/24 08:30 Freq: NEEDED Status: Active Protocol: Document 01/28/24 10:55 AB (Rec: 01/28/24 13:03 AB [id number]) PT Summary Assessment and Plan Potential Rehabilitation Potential Fair Summary Impairments Pain,ROM,Strength,Balance, Coordination,Sensation,Tone, Cognition,Bed Mobility, Transfers,Gait,Activity Tolerance Progress Towards Goals Slow Progress due to Medical Issues,Slow Progress due to Activity Tolerance,Slow Progress - Other Assessment Summary pt improving slowly with mobility and able to step transfer to chair using FWW max Ax 2 and max cues. Goals Bed Mobility Goal Moderate Assistance Transfer Goal Minimal Assistance,Front Wheeled Walker Gait Goal Moderate Assistance,Front Wheel Walker Gait Distance 20 Days to Meet Goals 10 Frequency of Treatment Frequency Of Treatment Once a Day Treatment Plan Physical Therapy Treatment Plan Bed Mobility Training,Transfer Training,Therapeutic Exercise ,Balance Retraining,Discharge Planning,Hot or Cold Pack, Neuromuscular Re-ed, Coordination Retraining,Manual Therapy Precautions Other Precautions Fall risk Weight Bearing Status Weight Bearing Status Weight Bear as Tolerated Allowed Weight Bearing Amount (enter % LLE WBAT or #) (%) Recommendations To Nursing Amount of Assist Needed Mechanical Lift Discharge Recommendations PT Discharge Recommendations Home with 04/10 Assist Available,Home Health,SNF Rehab,Home vs SNF Transportation Needs at Discharge Wheelchair/Cabulance
--- NOTE | 2024-01-28 11:11 | P.PN_ITS ---
Subjective Subjective Interval history: Santiago is a pleasant 68 year old male who is POD#3 s/p deep I&D of a left leg abscess and an arthrocentesis of the left knee joint by Dr. Whitfield. This afternoon patient reports he is doing okay, he reports only mild pain. He was working w/ PT today. He does have some impairments from prior strokes. He denies any significant pain w/ WB. He lives at home w/ and son who are willing and able to aid in his post-op care, he reports he would prefer to d/c to home to them once stable. He has been on Vanco prophylactically, cultures from sx are still pending. Patient states SCDs were placed on his left leg last night caused him increased pain. No pain over his right leg. Denies fever, chills, chest pain, SOB, nausea, vomiting. Exam Vital Signs (past 8 hours): - 01/28/24 06:25 01/28/24 08:00 01/28/24 08:22 Temperature 97.4 F L 97.8 F Pulse Rate 74 70 82 Respiratory Rate 16 18 Blood Pressure 124/75 110/72 93/45 L Pulse Oximetry 94 96 Oxygen Flow Rate 0 0 01/28/24 09:26 Temperature Pulse Rate 80 Respiratory Rate Blood Pressure Pulse Oximetry Oxygen Flow Rate Oxygen Delivery Method Room Air Oxygen Flow Rate 0 Narrative Exam Narrative: Patient sitting comfortably in bedside chair during our interview today. No acute distress. AOx3. 5/5 strength with DF, PF, EHL bilaterally. Gross sensation intact throughout bilateral lower extremities. Calves soft and non-tender bilaterally. SCDs are not on. Foot and ankle pads on. Brisk capillary refill, pulses intact. CHELLE wrap inplace over left leg. Objective Labs 01/26/24 05:00 01/28/24 04:43 Labs: Laboratory Results - last 24 hr 01/28/24 04:43 Sodium 135 L Potassium 4.4 Chloride 106 Carbon Dioxide 23 BUN 24 H Creatinine 0.93 Estimated GFR > 60 BUN/Creatinine Ratio 25.8 H Glucose 103 Calcium 9.1 PFSH Medical History Normal cardiac ejection fraction (06/03/23) Aortic stenosis Chronic, continuous use of opioids Iron deficiency anemia following bariatric surgery BPH w/o urinary obs/LUTS DDD (degenerative disc disease), lumbar Pacemaker Allergic rhinitis Obstructive sleep apnea, adult Obesity (BMI 30-39.9) Hyperlipidemia Fatigue due to sleep pattern disturbance GERD (gastroesophageal reflux disease) 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) Left inguinal hernia Chronic kidney disease (CKD) stage G3a/A1, moderately decreased glomerular filtration rate (GFR) between 45-59 mL/min/1.73 square meter and albuminuria creatinine ratio less than 30 mg/g Atrial fibrillation Surgical History H/O total knee replacement H/O left inguinal hernia repair History of cholecystectomy H/O gastric bypass Family History Family/Other Loud snoring Dementia Father Loud snoring Obesity Hypertension Heart disease Mother Loud snoring Obesity Hypertension Depression Anxiety Family/Other Hypertension Depression Social History household members: spouse and children Smoking Status: Never smoker alcohol intake: never Assessment & Plan Post-op Postoperative Procedures: Procedures Operation Date: 01/25/24 14:00 Actual Procedure Side Surgeon p Left knee Irrigation and Debridement and Arthrocentesis Left Chica Whitfield MD Postoperative day: 3 Postoperative status: doing well Postoperative plan: routine post-op care and ambulate Postoperative plan narrative: 1) Continue Eliquis 5 mg b.i.d. 2) Empiric vancomycin until cultures return. We will likely require Infectious Disease consultation. Cultures are still pending at this time. If knee aspirate grows bacteria may need additional treatment of prosthetic joint infection versus chronic antibiotic suppression. Given the patient's comorbidities, chronic suppression with retaining knee prosthesis, if possible, may be the best outcome for him. 3) Sutures to remain in place at least 2 weeks until follow up with orthopaedic surgery outpatient. 4) WBAT and activity as tolerated. 5) Continue multimodal pain management PRN, ice the the knee for additional pain control 6) Discussed keeping the right SCD on while in bed. Patient is agreeable with that. Discussed with CM to look into SNF options vs DC home with HH. Time Spent With Patient Time with patient: 15-24 minutes
--- NOTE | 2024-01-28 12:49 | PC.NURSE ---
Addendum entered by Rita Aguirre R.N. 01/28/24 16:46: Per Sandhya Werner pharmacist, cancel Vanco peak. Vanco dose will be adjusted by the tough results. Addendum entered by Rita Aguirre R.N. 01/28/24 14:28: Pt transfered back to bed with 2 person max assist to stand. pt using walker and taking small steps to bed. left leg weak. compression socks on and SCD on right leg. Original Note: Pt transfered to chair with PT, Weight bare. Tolerating it well
--- NOTE | 2024-01-28 13:47 | PM.PN.1 ---
Subjective Subjective Date Patient Seen: 01/28/24 Time Patient Seen: 08:33 Interval history: Summary: He was admitted postop after a left thigh abscess drainage. He was started on antibiotics, anticoagulation was resumed. He was chronic weakness of his legs relating to strokes as well as chronic dysphagia. Nursing notes that he has a lower sodium today and appears to be dry. He was not eating much, we will start IV fluids. He was also been constipated and had no effect with a suppository last night. S: He denies pain, chest pain or shortness a breath. Exam Vital Signs (past 8 hours): - 01/28/24 06:25 01/28/24 08:00 01/28/24 08:22 Temperature 97.4 F L 97.8 F Pulse Rate 74 70 82 Respiratory Rate 16 18 Blood Pressure 124/75 110/72 93/45 L Pulse Oximetry 94 96 Oxygen Flow Rate 0 0 01/28/24 09:26 Temperature Pulse Rate 80 Respiratory Rate Blood Pressure Pulse Oximetry Oxygen Flow Rate Oxygen Delivery Method Room Air Oxygen Flow Rate 0 Narrative Exam Narrative: NAD, alert and oriented. Slow and slurred speech, chronic. Lungs are clear, normal rate and effort. Heart is regular, no murmur gallop or rub. Abdomen is soft, non distended. Extremities are free of edema. Left knee unwrapped and examined, dressing in place, normal surrounding skin. Objective Labs 01/26/24 05:00 01/28/24 04:43 Labs: Laboratory Results - last 24 hr 01/28/24 04:43 Sodium 135 L Potassium 4.4 Chloride 106 Carbon Dioxide 23 BUN 24 H Creatinine 0.93 Estimated GFR > 60 BUN/Creatinine Ratio 25.8 H Glucose 103 Calcium 9.1 [facility] Medical History Normal cardiac ejection fraction (06/03/23) Aortic stenosis Chronic, continuous use of opioids Iron deficiency anemia following bariatric surgery BPH w/o urinary obs/LUTS DDD (degenerative disc disease), lumbar Pacemaker Allergic rhinitis Obstructive sleep apnea, adult Obesity (BMI 30-39.9) Hyperlipidemia Fatigue due to sleep pattern disturbance GERD (gastroesophageal reflux disease) 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) Left inguinal hernia Chronic kidney disease (CKD) stage G3a/A1, moderately decreased glomerular filtration rate (GFR) between 45-59 mL/min/1.73 square meter and albuminuria creatinine ratio less than 30 mg/g Atrial fibrillation Surgical History H/O total knee replacement H/O left inguinal hernia repair History of cholecystectomy H/O gastric bypass Family History Family/Other Loud snoring Dementia Father Loud snoring Obesity Hypertension Heart disease Mother Loud snoring Obesity Hypertension Depression Anxiety Family/Other Hypertension Depression Social History household members: spouse and children Smoking Status: Never smoker alcohol intake: never Assessment & Plan Assessment & Plan narrative: 1. Left lateral leg cellulitis and abscess, present on admission and active. -continue Abx. Rocephin and Vanco. -status post incision and drainage on January 24. -follow cultures, negative to date, ID consultation to follow given potential for prosthetic joint infection. 2. Chronic diastolic heart failure, present on admission and stable. 3. Dysphagia with regurgitation, chronic and active. -patient notes food stuck in his esophagus for the past week, has history of dysphagia 4. A-fib, present on admission and stable. -continue apixiban 7. Hyperlipidemia. Present on admission and active. 8. GERD. Present on admission and active. - Continue pantoprazole 9. BPH. Present on admission and active. -Continue Flomax 10. Constipation. Present on admission and resolved. PLAN: -Phys therapy -continue vancomycin and await cultures from incision and drainage (no growth to date) Full resuscitation EDMUND is 01/29, anticipate 2 midnights necessity for hospital services. This supports his inpatient status. PROFEE Charge codes Subsequent inpatient/observation care: 36517
[2024-01-28] MEDS: VANCOMYCIN TROUGH 1 REQUEST MISC (14:43)
[2024-01-28 15:52] LABS: Vancomycin Trough 22.8 ug/mL (10-20)
[2024-01-28] MEDS: ATORVASTATIN 20 MG TABLET 10 MG PO (20:23)
[2024-01-28] MEDS: SODIUM CHLORIDE 0.9% FLUSH 10 ML IV (20:24)
[2024-01-29] VITALS (7 sets, daily range): BP systolic 104–122; BP diastolic 60–78; PULSE 21–88; RESP 12–21; TEMP 36.2–36.9; O2SAT 94–97
[2024-01-29] MEDS: OXYCODONE IR 5 MG TABLET PO ×3 (03:14→21:02)
[2024-01-29] MEDS: VANCOMYCIN 1,000 MG/200 ML PIGGYBACK 200 MG IV ×2 (03:14→15:33)
--- NOTE | 2024-01-29 03:25 | PC.NURSE ---
L knee dressing oozing yellow drainage. Removed dressing and applied adhesive dressing and wrapped with celina wrap. Pt tolerated well.
[2024-01-29] MEDS: PANTOPRAZOLE DR 40 MG TABLET PO (05:04)
--- NOTE | 2024-01-29 08:02 | PM.PN.1 ---
Subjective Subjective Date Patient Seen: 01/29/24 Time Patient Seen: 08:30 Interval history: Summary: He was admitted postop after a left thigh abscess drainage. He was started on antibiotics, anticoagulation was resumed. He was chronic weakness of his legs relating to strokes as well as chronic dysphagia. Nursing notes that he has a lower sodium today and appears to be dry. He was not eating much, we will start IV fluids. He was also been constipated and had no effect with a suppository last night. S: He denies pain, chest pain or shortness a breath. He has been able to get up with physical therapy, requiring moderate assistance, able to step transfer chair using front wheel walker, anticipated home with home health versus SNF. Exam Vital Signs (past 8 hours): - 01/29/24 04:45 Temperature 98.5 F Pulse Rate 70 Respiratory Rate 20 Blood Pressure 113/70 Pulse Oximetry 95 Oxygen Flow Rate 0 Oxygen Delivery Method Room Air Oxygen Flow Rate 0 Narrative Exam Narrative: NAD, alert and oriented. Slow and slurred speech, chronic. Lungs are clear, normal rate and effort. Heart is regular, no murmur gallop or rub. Abdomen is soft, non distended. Extremities are free of edema. Left knee unwrapped and examined, dressing in place, normal surrounding skin. 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) Left inguinal hernia Chronic kidney disease (CKD) stage G3a/A1, moderately decreased glomerular filtration rate (GFR) between 45-59 mL/min/1.73 square meter and albuminuria creatinine ratio less than 30 mg/g Atrial fibrillation Surgical History H/O total knee replacement H/O left inguinal hernia repair History of cholecystectomy H/O gastric bypass Family History Family/Other Loud snoring Dementia Father Loud snoring Obesity Hypertension Heart disease Mother Loud snoring Obesity Hypertension Depression Anxiety Family/Other Hypertension Depression Social History household members: spouse and children Smoking Status: Never smoker alcohol intake: never Assessment & Plan Assessment & Plan narrative: 1. Left lateral leg cellulitis and abscess, present on admission and active. -continue Abx. Rocephin and Vanco. -status post incision and drainage on January 24. -follow cultures, negative to date, ID consultation to follow given potential for prosthetic joint infection. -if culture negative may DC home off antibiotics per Orthopedics in discussion today with Dr. Barrera. 2. Chronic diastolic heart failure, present on admission and stable. 3. Dysphagia with regurgitation, chronic and active. -patient notes food stuck in his esophagus for the past week, has history of dysphagia 4. A-fib, present on admission and stable. -continue apixiban 7. Hyperlipidemia. Present on admission and active. 8. GERD. Present on admission and active. - Continue pantoprazole 9. BPH. Present on admission and active. -Continue Flomax 10. Constipation. Present on admission and resolved. PLAN: -Phys therapy -continue vancomycin and await cultures from incision and drainage (no growth to date) Full resuscitation EDMUND is 01/29, anticipate 2 midnights necessity for hospital services. PROFEE Charge codes Subsequent inpatient/observation care: 16019
[2024-01-29] MEDS: dilTIAZem CD 180 MG CAP PO (09:09)
[2024-01-29] MEDS: APIXABAN 5 MG TABLET PO ×2 (09:09→20:59)
[2024-01-29] MEDS: METOPROLOL ER 50 MG TABLET 100 MG PO (09:09)
[2024-01-29] MEDS: SODIUM CHLORIDE 0.9% FLUSH 10 ML IV ×2 (09:09→20:59)
--- NOTE | 2024-01-29 10:25 | P.PN_ITS ---
Subjective Subjective Date Patient Seen: 01/29/24 Time Patient Seen: 10:25 Interval history: Patient is seen on rounds today for his left lower extremity I and D and knee aspiration out of concern for periprosthetic infection of the knee. Patient is in minimal pain. He does note some swelling around the knee and calf however it is not worse than before. No significant change in the last 24 hours. Currently his labs have been negative for infection of the knee. He has been on vancomycin IV and followed by internal medicine. Exam Vital Signs (past 8 hours): - 01/29/24 04:45 01/29/24 07:00 01/29/24 08:00 Temperature 98.5 F 97.9 F Pulse Rate 70 21 L Respiratory Rate 20 21 Blood Pressure 113/70 114/74 Pulse Oximetry 95 95 Oxygen Delivery Method Room Air Oxygen Flow Rate 0 0 Oxygen Delivery Method Room Air Oxygen Flow Rate 0 Narrative Exam Narrative: Exam of the left lower extremity demonstrates incisions clean dry and intact, I removed the Vaughn wrap for examination but did not remove the bandage as there was no surrounding erythema or swelling. 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) Left inguinal hernia Chronic kidney disease (CKD) stage G3a/A1, moderately decreased glomerular filtration rate (GFR) between 45-59 mL/min/1.73 square meter and albuminuria creatinine ratio less than 30 mg/g Atrial fibrillation Surgical History H/O total knee replacement H/O left inguinal hernia repair History of cholecystectomy H/O gastric bypass Family History Family/Other Loud snoring Dementia Father Loud snoring Obesity Hypertension Heart disease Mother Loud snoring Obesity Hypertension Depression Anxiety Family/Other Hypertension Depression Social History household members: spouse and children Smoking Status: Never smoker alcohol intake: never Assessment & Plan Assessment & Plan narrative: assessment: 68-year-old male status post I&D left lower extremityand aspiration of his left knee, labs so far have been negative for periprosthetic infection. Plan: He is being followed by internal medicine. Independent conversation was had with Dr. Pradhan. If labs continued to be negative, we will discontinue the IV vancomycin. Otherwise, he will continue to progress towards discharge without restrictions Time-Based Coding :: [TOTAL MINUTES] spent with patient and on the chart (including review of chart, obtaining history, exam, reviewing outside data, placing orders, documenting exam and treatment plan, and counseling patient) on [DATE].
--- NOTE | 2024-01-29 13:36 | CM.DPC ---
DCP Cont. Reviewed EMR and team rounds for status updates. Cultures are still pending and are expected back on Tuesday, 01/29. If cultures are negative for growth, pt will not need OP IV ABO's. If they are positive, Ortho will need to consult with the ID provider to discuss plan for OP IV ABO's, and will need to send referral to [facility] and .
--- NOTE | 2024-01-29 14:50 | PT.IPTN ---
Current Diagnoses Cutaneous abscess of left lower limb (01/25/24) Pain due to internal orthopedic prosthetic devices, implants and grafts, initial encounter (01/25/24) Surgery Performed Operation Date: 01/25/24 14:00 Actual Procedures p Left knee Irrigation and Debridement and Arthrocentesis(Left) - Chica Whitfield MD Physical Therapy Treatment Note M2 PT-IP Current Condition Start: 01/26/24 08:30 Freq: NEEDED Status: Active Protocol: Document 01/26/24 10:35 MB (Rec: 01/26/24 11:32 MB [id number]) Physical Therapy Current Condition Current Condition Evaluation Date 01/26/24 Treatment Diagnosis History of strokes and leg weakness, acute LLE abscess and I&D M3 PT-IP Subjective Start: 01/26/24 08:30 Freq: NEEDED Status: Active Protocol: Document 01/29/24 14:25 MB (Rec: 01/29/24 14:50 MB [id number]) Subjective Physical Therapy Visit Type Type Treatment Note Visit Start Time 14:25 Visit Stop Time 14:45 Number of SIX SIGMA 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 M4 PT-IP Mobility and Gait Start: 01/26/24 08:30 Freq: NEEDED Status: Active Protocol: Document 01/29/24 14:25 MB (Rec: 01/29/24 14:50 MB [id number]) PT-Bed Mobility Assessment Supine to Sit Supine to Sit Contact Guard Assistance,1 Person Assistance,Head of Bed Elevated,Bedrails Sit to Supine Sit to Supine Minimal Assistance,Bedrails Scooting Scooting to Edge of Bed Contact Guard Assistance Scooting Up and Down in Bed Moderate Assistance PT-Transfer Assessment Sit to and From Stand Sit to and from Stand Maximum Assistance,2 Person Assistance,Use of Upper Extremities Equipment Transfer Assistive Device Gait Belt,Front Wheeled Walker Orthotic/Prosthetic Devices or Brace: No Comments Mobility Comments Increased time and effort, HOB increased and use of HOB rail and left rail at end of mattress for supine to sit. Sitting balance with CGA and UE support. STS x1 with +2 assist and pt is unable to take a step today with RW. PT donned shoes before STS and PT block right foot into mattress with right knee bent and HOB in Trendelenburg to scoot up to HOB. M5 PT-IP Objective Assessments Start: 01/26/24 08:30 Freq: NEEDED Status: Active Protocol: Document 01/26/24 10:35 MB (Rec: 01/26/24 11:32 MB [id number]) Orientation Orientation/Cognition Level of Alertness Alert Orientation Name,Birthday,Place,Situation Language Function Ability Word Finding Difficulties Safety Awareness Decreased Safety Awareness Comments Pt with trouble with communication and this is a barrier to orientation questions and providing PLOF Gross Range of Motion Upper Extremity ROM Assessment Bilaterally Impaired Impairments Defer to OT note Lower Extremity ROM Assessment Bilaterally Impaired Impairments LLE with more impairment than the right but limited range and strength both legs all joints, pt does not tolerate ROM or MMT well today Strength Lower Extremity Strength Assessment Bilaterally Impaired Comments Strength Comments Severely weak legs with more changes on the right and celina wrap and dressing today Coordination Assessment Gross Coordination Gross Coordination Impaired Assessment Coordination Comments Pt does not tolerate formal testing Sensation Assessment Comments Sensation Comments Pt does not tolerate formal testing Muscle Tone Muscle Tone WNL No Comments Muscle Tone Comments Increased PF tone M6 PT-IP Treatment Start: 01/26/24 08:30 Freq: NEEDED Status: Active Protocol: Document 01/29/24 14:25 MB (Rec: 01/29/24 14:50 MB [id number]) Physical Therapy Treatment Education Education Provided Safety M7 PT-IP Assessment and Plan Start: 01/26/24 08:30 Freq: NEEDED Status: Active Protocol: Document 01/29/24 14:25 MB (Rec: 01/29/24 14:50 MB [id number]) PT Summary Assessment and Plan Potential Rehabilitation Potential Fair Status of Condition at Evaluation Evolving Summary Impairments Pain,ROM,Strength,Balance, Coordination,Sensation,Tone, Cognition,Bed Mobility, Transfers,Gait,Activity Tolerance Progress Towards Goals Slow Progress due to Medical Issues,Slow Progress due to Activity Tolerance,Slow Progress - Other Assessment Summary Pt con't to have trouble communicating, requires CGA with HOB and use of rails for supine to sit and assistance with right foot to get back to bed. He cannot take a step today with RW and +2 max A. Goals Bed Mobility Goal Moderate Assistance Transfer Goal Minimal Assistance,Front Wheeled Walker Gait Goal Moderate Assistance,Front Wheel Walker Gait Distance 20 Days to Meet Goals 10 Frequency of Treatment Frequency Of Treatment Once a Day Treatment Plan Physical Therapy Treatment Plan Bed Mobility Training,Transfer Training,Therapeutic Exercise ,Balance Retraining,Discharge Planning,Hot or Cold Pack, Neuromuscular Re-ed, Coordination Retraining,Manual Therapy Precautions Other Precautions Fall risk Weight Bearing Status Weight Bearing Status Weight Bear as Tolerated Allowed Weight Bearing Amount (enter % LLE WBAT or #) (%) Recommendations To Nursing Amount of Assist Needed Mechanical Lift Discharge Recommendations PT Discharge Recommendations SNF Rehab Transportation Needs at Discharge Wheelchair/Cabulance
[2024-01-29] MEDS: ATORVASTATIN 20 MG TABLET 10 MG PO (20:59)
[2024-01-29] MEDS: ACETAMINOPHEN 325 MG TABLET 650 MG PO (21:03)
[2024-01-30] VITALS (7 sets, daily range): BP systolic 109–127; BP diastolic 56–71; PULSE 70–81; RESP 12–24; TEMP 36.2–36.5; O2SAT 95–99
[2024-01-30 02:41] LABS: Estimated Glomerular Filt Rate > 60 mL/min (>60)
[2024-01-30 04:05] LABS: Vancomycin Trough 20.7 ug/mL (10-20)
[2024-01-30] MEDS: VANCOMYCIN TROUGH 1 REQUEST MISC (07:06)
[2024-01-30] MEDS: PANTOPRAZOLE DR 40 MG TABLET PO (07:06)
--- NOTE | 2024-01-30 07:10 | P.PN_ITS ---
Subjective Subjective Date Patient Seen: 01/30/24 Time Patient Seen: 14:05 Interval history: Pt sitting up in chair. Has some slowness to respond to questions as well as word finding difficulty, but he is oriented and appropriate. Explained that we are still waiting on cultures from his knee aspirate to come back; these would be the more important cultures due to presence of hardware in the knee. He has been working w/ PT but is unable to transfer without 2 person assist. He agrees that he needs SNF rehab, but says that his is resistant to his going anywhere outside of [place], so if he can't get into [facility], she wants him to come home. Exam Vital Signs (past 8 hours): - 01/30/24 02:00 Temperature 97.6 F Pulse Rate 70 Respiratory Rate 20 Blood Pressure 122/56 L Pulse Oximetry 95 Oxygen Flow Rate 0 Oxygen Delivery Method Room Air Oxygen Flow Rate 0 Narrative Exam Narrative: 5/5 strength in hip flexors, quadriceps, hamstrings, PF, DF, EHL on left. Sensation to light touch intact throughout LLE, calf soft and compressible. 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) Left inguinal hernia Chronic kidney disease (CKD) stage G3a/A1, moderately decreased glomerular filtration rate (GFR) between 45-59 mL/min/1.73 square meter and albuminuria creatinine ratio less than 30 mg/g Atrial fibrillation Surgical History H/O total knee replacement H/O left inguinal hernia repair History of cholecystectomy H/O gastric bypass Family History Family/Other Loud snoring Dementia Father Loud snoring Obesity Hypertension Heart disease Mother Loud snoring Obesity Hypertension Depression Anxiety Family/Other Hypertension Depression Social History household members: spouse and children Smoking Status: Never smoker alcohol intake: never Assessment & Plan Post-op Assessment and plan (1) Abscess of left lower extremity: Assessment and Plan narrative: 1) Specimen 12063 is left knee aspirate; on 01/27 aerobic showed Very Early Growth: Culture too young for work-up reincubated; anaerobic preliminarily no growth. 2) Specimen 50459 is from left leg abscess; aerobic cultures are final negative, anaerobic cultures are preliminarily negative. 3) Continue [place]ocmycin [place] 19951 is finalized. [place] [address] comes back with no growth on finals, he can be discharged on Levaquin 750mg PO once daily x 14 days. 4) PCR likely not received until 01/26, and takes 3-5 business days to process. Recommend calling later this week if pt still here, but do not need to keep pt inpt until PCR is done. 5) Based on PT notes and discussion w/ patient, will need SNF at discharge. Looks like we have at least another day or two until cultures are finalized, so hopefully something can be found locally during that time. (2) H/O total knee replacement: Postoperative Procedures: Procedures Operation Date: 01/25/24 14:00 Actual Procedure Side Surgeon p Left knee Irrigation and Debridement and Arthrocentesis Left Chica Whitfield MD Postoperative day: 5
[2024-01-30] MEDS: APIXABAN 5 MG TABLET PO ×2 (08:32→20:28)
[2024-01-30] MEDS: METOPROLOL ER 50 MG TABLET 100 MG PO ×2 (08:32→20:29)
[2024-01-30] MEDS: SENNOSIDES 8.6 MG TABLET PO (08:32)
[2024-01-30] MEDS: VANCOMYCIN 1,000 MG/200 ML PIGGYBACK 200 MG IV (08:33)
[2024-01-30] MEDS: SODIUM CHLORIDE 0.9% FLUSH 10 ML IV ×2 (08:33→20:30)
[2024-01-30] MEDS: dilTIAZem CD 180 MG CAP PO (08:33)
--- NOTE | 2024-01-30 10:05 | OT.IP.TRT ---
Current Diagnoses Cutaneous abscess of left lower limb (01/25/24) Pain due to internal orthopedic prosthetic devices, implants and grafts, initial encounter (01/25/24) Presence of unspecified artificial knee joint (01/25/24) Surgery Performed Operation Date: 01/25/24 14:00 Actual Procedures p Left knee Irrigation and Debridement and Arthrocentesis(Left) - Chica Whitfield MD Occupational Therapy Treatment Note M2 OT-IP Current Condition Start: 01/26/24 12:37 Freq: Status: Active Protocol: Document 01/26/24 12:38 CCC (Rec: 01/26/24 12:50 CCC [id number]) Occupational Therapy Current Condition Current Condition Evaluation Date 01/26/24 Treatment Diagnosis S/P Left thigh abscess drainage Diagnosis Onset Date 01/25/24 Weight Bearing Status Weight Bearing Status Weight Bear as Tolerated M3 OT- IP Subjective and Pain Start: 01/26/24 12:37 Freq: Status: Active Protocol: Document 01/30/24 15:00 CGR (Rec: 01/30/24 15:07 CGR [id number]) OT- Subjective Occupational Therapy Visit Type Type Treatment Note Visit Start Time 09:28 Visit Stop Time 10:06 OT Pain Assessment Pain Present Pain Present Denied Pain M4 OT- IP ADL's Start: 01/26/24 12:37 Freq: Status: Active Protocol: Document 01/30/24 15:00 CGR (Rec: 01/30/24 15:07 CGR [id number]) OT [id number] Comments OT Self-Feeding Comments not meal time OT ADL-Grooming General Evaluation Grooming Ability Standby Assistance Areas Needing Assistance Retrieving/Set-up of Grooming Items,Face Washing Comments OT Grooming Comments seated in chair at sink OT ADL-Oral Care General Eval Oral Care Ability Standby Assistance Areas of Assistance Brushing Teeth Comments Oral Care Comments seated in chair at sink OT ADL-Dressing General Eval Lower Body Dressing Ability Total Assistance Areas Needing Assistance Socks,Shoes Comments OT Dressing Comments Pt requested that shoes be donned for tranfer. OT ADL-Toileting General Evaluation Toileting Ability Standby Assistance Devices Toileting Assistive Devices Urinal Comments OT Toileting Comments seated in chair OT ADL-Bathing Comments OT Bathing Comments not performed M5 OT- IP IADL's Start: 01/26/24 12:37 Freq: Status: Active Protocol: Document 01/26/24 12:38 [facility] (Rec: 01/26/24 12:50 [facility] [id number]) OT-Instrumental Activities of Daily Living Home Safety Awareness Home Safety Comments Pt's son and assist with his needs. Medication Management Medication Management Caregiver Administers Money Management Money Management Caregiver Provides Assistance Meal Preparation Meal Preparation Caregiver Provides Assist Gas Station Attendant Gas Station Attendant Caregiver Provides Assist M6 OT- IP Functional Cognition Start: 01/26/24 12:37 Freq: Status: Active Protocol: Document 01/27/24 12:26 [facility] (Rec: 01/27/24 12:37 [facility] [id number]) Cognitive Factors Limiting Selfcare Function Cognitive Comments Cognitive Assessment Comments Pt having difficulty to get the words out and initiate his movements. Pt more alert today and able to talk about his prior level of care more. Pt states uses a transfer pole to get from lift chair to manual wc. Use of rotating disc and grab bar to get to the tub bench. Pt states his son assist for all his transfers. Pt states in home health has been working on standing tolerance with an up walker and transfer pole and has been able to stand for 2-3 minutes. M7 OT- IP Mobility and Balance Start: 01/26/24 12:37 Freq: Status: Active Protocol: Document 01/30/24 15:00 CGR (Rec: 01/30/24 15:07 CGR [id number]) OT- Bed Mobility Assessment Supine to Sit Supine to Sit Assist Standby Assistance,Head of Bed Elevated Scooting Scooting to Edge of Bed Moderate Assistance OT-Transfer Assessment Sit to and From Stand Sit to and from Stand Maximum Assistance,1 Person Assistance Transfers Transfer Ability Maximum Assistance,2 Person Assistance Technique Transfer Destination Bed,Chair Transfer Technique Squat Pivot Devices Transfer Assistive Devices Gait Belt Comments Mobility Comments Pt performed two sit to stands from bed but leans heavily backwards upon standing. Pt then transfered from bed to chair with max x 2 squat pivot , well exicuted with good following of instructions. OT- Gait Assessment Comments Gait Ability Comments not performed OT- Balance Assessment Sitting Balance and Reactions Static Sitting Balance Ability Good Dynamic Sitting Balance Ability Good Standing Balance and Reactions Static Standing Balance Ability Poor Dynamic Standing Balance Ability Poor M8 OT- IP Objective Assessments Start: 01/26/24 12:37 Freq: Status: Active Protocol: Document 01/26/24 12:38 [facility] (Rec: 01/26/24 12:50 [facility] [id number]) OT Gross Range of Motion Upper Extremity Range of Motion Assessment Left Impaired OT Strength Upper Extremity Strength Assessment Left Impaired Comments Strength Comments KIM 3-/5 M9 OT- IP Assessment and Plan Start: 01/26/24 12:37 Freq: Status: Active Protocol: Document 01/30/24 15:00 CGR (Rec: 01/30/24 15:07 CGR [id number]) OT Summary Assessment and Plan Potential Rehabilitation Potential Good Analytic Complexity at Evaluation Moderate Summary OT Impairments Pain,Strength,Balance, Functional Mobility,Self- Feeding,Grooming,Dressing, Toileting,Bathing,Toilet Transfers,Shower Transfers, Activity Tolerance Progress Towards Goals Slow Progress due to Pain,Slow Progress due to Medical Issues,Slow Progress due to Activity Tolerance Assessment Summary Pt participated well in todays session with good following of directions and participation. Pt appears motivated and transferred to chair then performed ADLs seated in chair at sink. Pt left sitting up in chair at end of session, call button within reach and all needs at time met. Goals Self-Feeding Goal Standby Assistance Grooming Goal Standby Assistance Dressing Goal Moderate Assistance Toileting Goal Moderate Assistance Bathing Goal Moderate Assistance Toilet Transfer Goal Moderate Assistance Shower Transfer Goal Moderate Assistance Days to Meet Goals 25 Frequency of Treatment Other frequency 5x/week Treatment Plan OT Treatment Plan ADL Training,Functional Mobility,Patient/Family Education,Discharge Planning Discharge Recommendations OT Discharge Recommendations Home with 04/10 Assist Available,Home Health,SNF Rehab,Home vs SNF Other Discharge Recommendations At this time pt would benefit most from SNF Transportation Needs at Discharge Wheelchair/Cabulance
--- NOTE | 2024-01-30 11:22 | DIET.CONS ---
Dietary Consultation Note Admission Date: 01/25/2024 12:30 Assessment: 68 y M s/p I&D of lower extremity and aspiration of knee. RD screened for LOS. EMR reviewed. 100% recorded PO intakes. DFM reviewed for meal composition. Non-severe weight loss. No nutritional interventions needed. Will continue to monitor intakes and f/u as needed or in 5-7 days. Ht: 177.8 cm Wt: 115.666 kg BMI: 36.6 UBW: 123.377 kg on 05/29/23 (-6 % weight loss in 8 months, non-severe) Last BM: 01/28/24 (01/28/24 06:25) MNA: 13 Boogie Score: 18 Diet: 01/25/24 Dinner General (Regular) Diet Diet Modifications: General (Regular) Diet Diet Modifications: Food Texture: Level 7 - Regular Liquid Consistency: Level 0 - Thin Nutrition Percent Meal Consumed 100% 01/30/24 09:47 Percent Meal Consumed 100% 01/29/24 18:00 Labs: RBC 4.89 X10^6/uL (4.5-5.9) 01/26/24 05:00 Hgb 13.6 g/dL (13.5-17.5) 01/26/24 05:00 Hct 41.3 % (41-53) 01/26/24 05:00 Creatinine 0.84 mg/dL (0.66-1.25) 01/30/24 02:22 Electronically Signed by: Marguerite Mcdonald 01/30/24 11:22 Clinical Dietitian [address] [address]
--- NOTE | 2024-01-30 14:16 | CM.DPNOTE ---
Addendum entered by NEWTON Hull 01/30/24 14:37: ADD: [facility]ble at [facility] needs the final plan of care for antibiotics before starting a SNF auth. [facility] has bed availability. Original Note: DCP Cont [facility] may not be able to accept this week due to limited bed availability. Placed call to Seble at [facility], had to LM. Placed call to Suzy Ibrahim [place], had to LM. CM team following closely. Patient requires ongoing IV abx and therapies are recommending SNF. Patient/family agreeable. No SNF secured yet, search continues. Patient has [facility] MCR, SNF auth will be needed before discharge to SNF. LESTER
--- NOTE | 2024-01-30 16:31 | PT-IP ANOTE ---
PT checks in on pt who reports he has been in chair for 5 hours and his bottom is hurting him. Given weakness, prolonged time in chair and typically needing standing pole to get out of lift chair, feel total lift is safest option for transfers and PT communicates with nsg who will assist pt. Con't PT efforts next date.
--- NOTE | 2024-01-30 16:41 | P.PN_ITS ---
Subjective Subjective Interval history: Patient without complaints today. Cultures without growth, though no updates since 01/27. Exam Vital Signs (past 8 hours): - 01/30/24 14:00 01/30/24 14:00 Temperature 97.7 F Pulse Rate 76 76 Respiratory Rate 15 Blood Pressure 127/61 Pulse Oximetry 99 Oxygen Flow Rate 0 Oxygen Delivery Method Room Air Oxygen Flow Rate 0 Narrative Exam Narrative: NAD, alert and oriented. Slow and slurred speech, chronic. Extremities are free of edema. 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) Left inguinal hernia Chronic kidney disease (CKD) stage G3a/A1, moderately decreased glomerular filtration rate (GFR) between 45-59 mL/min/1.73 square meter and albuminuria creatinine ratio less than 30 mg/g Atrial fibrillation Surgical History H/O total knee replacement H/O left inguinal hernia repair History of cholecystectomy H/O gastric bypass Family History Family/Other Loud snoring Dementia Father Loud snoring Obesity Hypertension Heart disease Mother Loud snoring Obesity Hypertension Depression Anxiety Family/Other Hypertension Depression Social History household members: spouse and children Smoking Status: Never smoker alcohol intake: never Assessment & Plan Assessment & Plan narrative: 1. Left lateral leg cellulitis and abscess, present on admission and active. -continue Abx. Rocephin and Vanco. -status post incision and drainage on January 24. -follow cultures, negative to date. Agree with orthopedics plan as documented today. 2. Chronic diastolic heart failure, present on admission and stable. - no complaints. 3. Dysphagia with regurgitation, chronic and active. 4. A-fib, present on admission and stable. -continue apixiban 7. Hyperlipidemia. Present on admission and active. 8. GERD. Present on admission and active. - Continue pantoprazole 9. BPH. Present on admission and active. -Continue Flomax 10. Constipation. Present on admission and resolved. PLAN: -Phys therapy -SNF auth pending antibiotic plan. Agree with current plan as documented by orthopedics team today. Full resuscitation EDMUND is 01/29, anticipate 2 midnights necessity for hospital services. Medicine will sign off formally today, please re-consult if formal recommendations are needed or cultures return positive. Time-Based Coding :: [TOTAL MINUTES] spent with patient and on the chart (including review of chart, obtaining history, exam, reviewing outside data, placing orders, documenting exam and treatment plan, and counseling patient) on [DATE].
[2024-01-30] MEDS: ATORVASTATIN 20 MG TABLET 10 MG PO (20:28)
[2024-01-30] MEDS: polyethylene glycoL 3350 17 GM POWD.PACK PO (20:30)
[2024-01-30] MEDS: OXYCODONE IR 5 MG TABLET PO (20:40)
[2024-01-31] VITALS (8 sets, daily range): BP systolic 105–120; BP diastolic 65–74; PULSE 66–75; RESP 16–19; TEMP 35.9–36.5; O2SAT 95–98
[2024-01-31] MEDS: SODIUM CHLORIDE 0.9% FLUSH 10 ML IV ×3 (04:41→21:04)
[2024-01-31] MEDS: VANCOMYCIN 1,500 MG/300 ML PIGGYBACK 200 MG IV (04:48)
[2024-01-31] MEDS: PANTOPRAZOLE DR 40 MG TABLET PO (06:10)
[2024-01-31] MEDS: APIXABAN 5 MG TABLET PO ×2 (08:35→21:04)
[2024-01-31] MEDS: dilTIAZem CD 180 MG CAP PO (08:35)
[2024-01-31] MEDS: polyethylene glycoL 3350 17 GM POWD.PACK PO ×2 (08:35→21:03)
[2024-01-31] MEDS: METOPROLOL ER 50 MG TABLET 100 MG PO ×2 (08:35→21:04)
[2024-01-31] MEDS: SENNOSIDES 8.6 MG TABLET PO (08:36)
--- NOTE | 2024-01-31 10:20 | PT.IPTN ---
Current Diagnoses Cutaneous abscess of left lower limb (01/25/24) Pain due to internal orthopedic prosthetic devices, implants and grafts, initial encounter (01/25/24) Presence of unspecified artificial knee joint (01/25/24) Surgery Performed Operation Date: 01/25/24 14:00 Actual Procedures p Left knee Irrigation and Debridement and Arthrocentesis(Left) - Chica Whitfield MD Physical Therapy Treatment Note M2 PT-IP Current Condition Start: 01/26/24 08:30 Freq: NEEDED Status: Active Protocol: Document 01/26/24 10:35 MB (Rec: 01/26/24 11:32 MB [id number]) Physical Therapy Current Condition Current Condition Evaluation Date 01/26/24 Treatment Diagnosis History of strokes and leg weakness, acute LLE abscess and I&D M3 PT-IP Subjective Start: 01/26/24 08:30 Freq: NEEDED Status: Active Protocol: Document 01/31/24 10:20 AB (Rec: 01/31/24 12:24 AB [id number]) Subjective Physical Therapy Visit Type Type Treatment Note Visit Start Time 10:20 Visit Stop Time 10:45 Number of PROPELLER INSPECTOR Visits 0 Physical Therapy Visit Comments Patient Comments agreeable to do PT M4 PT-IP Mobility and Gait Start: 01/26/24 08:30 Freq: NEEDED Status: Active Protocol: Document 01/31/24 10:20 AB (Rec: 01/31/24 12:24 AB [id number]) PT-Bed Mobility Assessment Supine to Sit Supine to Sit Maximum Assistance,1 Person Assistance,2 Person Assistance ,Head of Bed Elevated,Bedrails Scooting Scooting to Edge of Bed Maximum Assistance PT-Transfer Assessment Sit to and From Stand Sit to and from Stand Maximum Assistance,2 Person Assistance,Use of Upper Extremities Equipment Transfer Assistive Device Gait Belt,Front Wheeled Walker Orthotic/Prosthetic Devices or Brace: No Transfers Transfer Destination Chair Transfer Technique Stand Step Pivot Transfer Ability Level of Assist Maximum Assistance,2 Person Assistance,Use of Upper Extremities Comments Mobility Comments pt supine in bed. completed supine to sit with HOB elevated max A x 1-2 and max cues. increase retrolean and needed mod to max A for sitting balance. max A x 1-2 for scooting to EOB. completed sit to stand from EOB max A x 2 and max cues. max A x 2 for step transfer to chair using fWW. pt rested and agreed to stand again. max A x 2 for sit to stand from chair and max A x 1-2 for static standing balance using FWW for support. presents with posterior trunk LOB. cued to push FWW down on ground for support. pt tolerated ~ 30 sec standing using FWW for support max A x 2 and max cues . positioned pt on the chair. call light and table placed within reach. M5 PT-IP Objective Assessments Start: 01/26/24 08:30 Freq: NEEDED Status: Active Protocol: Document 01/26/24 10:35 MB (Rec: 01/26/24 11:32 MB [id number]) Orientation Orientation/Cognition Level of Alertness Alert Orientation Name,Birthday,Place,Situation Language Function Ability Word Finding Difficulties Safety Awareness Decreased Safety Awareness Comments Pt with trouble with communication and this is a barrier to orientation questions and providing PLOF Gross Range of Motion Upper Extremity ROM Assessment Bilaterally Impaired Impairments Defer to OT note Lower Extremity ROM Assessment Bilaterally Impaired Impairments LLE with more impairment than the right but limited range and strength both legs all joints, pt does not tolerate ROM or MMT well today Strength Lower Extremity Strength Assessment Bilaterally Impaired Comments Strength Comments Severely weak legs with more changes on the right and celina wrap and dressing today Coordination Assessment Gross Coordination Gross Coordination Impaired Assessment Coordination Comments Pt does not tolerate formal testing Sensation Assessment Comments Sensation Comments Pt does not tolerate formal testing Muscle Tone Muscle Tone WNL No Comments Muscle Tone Comments Increased PF tone M6 PT-IP Treatment Start: 01/26/24 08:30 Freq: NEEDED Status: Active Protocol: Document 01/31/24 10:20 AB (Rec: 01/31/24 12:24 AB [id number]) Physical Therapy Treatment Education Education Provided Safety M7 PT-IP Assessment and Plan Start: 01/26/24 08:30 Freq: NEEDED Status: Active Protocol: Document 01/31/24 10:20 AB (Rec: 01/31/24 12:24 AB [id number]) PT Summary Assessment and Plan Potential Rehabilitation Potential Fair Summary Impairments Pain,ROM,Strength,Balance, Coordination,Sensation,Tone, Cognition,Bed Mobility, Transfers,Gait,Activity Tolerance Progress Towards Goals Slow Progress due to Activity Tolerance,Slow Progress - Other Assessment Summary pt continues to require max A x 2 and max cues for transfers using FWW. pt will benefit from SNF rehab to improve overall mobility. Goals Bed Mobility Goal Moderate Assistance Transfer Goal Minimal Assistance,Front Wheeled Walker Gait Goal Moderate Assistance,Front Wheel Walker Gait Distance 20 Days to Meet Goals 10 Frequency of Treatment Frequency Of Treatment Once a Day Treatment Plan Physical Therapy Treatment Plan Bed Mobility Training,Transfer Training,Therapeutic Exercise ,Balance Retraining,Discharge Planning,Hot or Cold Pack, Neuromuscular Re-ed, Coordination Retraining,Manual Therapy Precautions Other Precautions Fall risk Weight Bearing Status Weight Bearing Status Weight Bear as Tolerated Allowed Weight Bearing Amount (enter % LLE WBAT or #) (%) Recommendations To Nursing Amount of Assist Needed Mechanical Lift Discharge Recommendations PT Discharge Recommendations SNF Rehab Transportation Needs at Discharge Wheelchair/Cabulance
[2024-01-31] MEDS: cefTRIAXone 2,000 MG in SODIUM CHLORIDE 0.9% 100 ML 200 MG IV (10:48)
--- NOTE | 2024-01-31 11:31 | PM.PNPO.1 ---
Subjective Subjective Date Patient Seen: 01/31/24 Time Patient Seen: 11:31 Interval history: Patient says his leg is feeling well. No new numbness, tingling or pain of the lower extremities. No nausea, vomiting, fever or chills. Exam Vital Signs (past 8 hours): - 01/31/24 08:35 01/31/24 09:05 01/31/24 09:06 Temperature 96.7 F L Pulse Rate 75 70 71 Respiratory Rate 16 Blood Pressure 117/72 Pulse Oximetry 96 Oxygen Flow Rate 0 Oxygen Delivery Method Room Air Oxygen Flow Rate 0 Narrative Exam Narrative: Patient found resting in the bedside chair. Dressing is clean dry and intact. Scant amount of blood see on pad. Bilateral lower extremities are well perfused. Sensation intact to light touch bilaterally. 5/5 EHL, DF, PF, bilaterally. 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) Left inguinal hernia Chronic kidney disease (CKD) stage G3a/A1, moderately decreased glomerular filtration rate (GFR) between 45-59 mL/min/1.73 square meter and albuminuria creatinine ratio less than 30 mg/g Atrial fibrillation Surgical History H/O total knee replacement H/O left inguinal hernia repair History of cholecystectomy H/O gastric bypass Family History Family/Other Loud snoring Dementia Father Loud snoring Obesity Hypertension Heart disease Mother Loud snoring Obesity Hypertension Depression Anxiety Family/Other Hypertension Depression Social History household members: spouse and children Smoking Status: Never smoker alcohol intake: never Assessment & Plan Post-op Postoperative Procedures: Procedures Operation Date: 01/25/24 14:00 Actual Procedure Side Surgeon p Left knee Irrigation and Debridement and Arthrocentesis Left Chica Whitfield MD Postoperative day: 6 Postoperative status: doing well Postoperative plan: routine post-op care Postoperative plan narrative: Culture results returned 01/29 light strep mitis/oralis. Dr. Twan anders ID consulted by Dr. Whitfield. Recommended starting with 6wks IV ceftiaxone and cmp, cbc, esr, crp Mondays and . Medicine has d/c vacomyocin and started Ceftriaxone 2000 mg IV daily per recommendations. Continue with Eliquis 5mg bid for DVT prevention. Multi-modal pain control. Ambulate with PT CM will discuss with patient and family about discharge placement: SNF or Home with . Current placement date with could be 02/01. Time Spent With Patient Time with patient: 15-24 minutes Quality VTE Deep Vein Thrombosis/Pulmonary Embolism Present on Admission: No
--- NOTE | 2024-01-31 13:50 | OT.IP.TRT ---
Current Diagnoses Cutaneous abscess of left lower limb (01/25/24) Pain due to internal orthopedic prosthetic devices, implants and grafts, initial encounter (01/25/24) Presence of unspecified artificial knee joint (01/25/24) Surgery Performed Operation Date: 01/25/24 14:00 Actual Procedures p Left knee Irrigation and Debridement and Arthrocentesis(Left) - Chica Whitfield MD Occupational Therapy Treatment Note M2 OT-IP Current Condition Start: 01/26/24 12:37 Freq: Status: Active Protocol: Document 01/26/24 12:38 CCC (Rec: 01/26/24 12:50 [facility] [id number]) Occupational Therapy Current Condition Current Condition Evaluation Date 01/26/24 Treatment Diagnosis S/P Left thigh abscess drainage Diagnosis Onset Date 01/25/24 Weight Bearing Status Weight Bearing Status Weight Bear as Tolerated M3 OT- IP Subjective and Pain Start: 01/26/24 12:37 Freq: Status: Active Protocol: Document 01/31/24 13:50 [facility] (Rec: 01/31/24 13:57 [facility] [id number]) OT- Subjective Occupational Therapy Visit Type Type Treatment Note Visit Start Time 13:25 Visit Stop Time 13:50 Occupational Therapy Visit Comments Patient Comments Pt agreed to work on weight shifting while in the recliner . Patient/Caregiver Goals To go home if not able to go to [facility]. OT Pain Assessment Pain When Pain Assessed At Rest Pain Present Pain Present Denied Pain M4 OT- IP ADL's Start: 01/26/24 12:37 Freq: Status: Active Protocol: Document 01/30/24 15:00 CGR (Rec: 01/30/24 15:07 CGR [id number]) OT [id number] Comments OT Self-Feeding Comments not meal time OT ADL-Grooming General Evaluation Grooming Ability Standby Assistance Areas Needing Assistance Retrieving/Set-up of Grooming Items,Face Washing Comments OT Grooming Comments seated in chair at sink OT ADL-Oral Care General Eval Oral Care Ability Standby Assistance Areas of Assistance Brushing Teeth Comments Oral Care Comments seated in chair at sink OT ADL-Dressing General Eval Lower Body Dressing Ability Total Assistance Areas Needing Assistance Socks,Shoes Comments OT Dressing Comments Pt requested that shoes be donned for transfer. OT ADL-Toileting General Evaluation Toileting Ability Standby Assistance Devices Toileting Assistive Devices Urinal Comments OT Toileting Comments seated in chair OT ADL-Bathing Comments OT Bathing Comments not performed M5 OT- IP IADL's Start: 01/26/24 12:37 Freq: Status: Active Protocol: Document 01/26/24 12:38 [facility] (Rec: 01/26/24 12:50 [facility] [id number]) OT-Instrumental Activities of Daily Living Home Safety Awareness Home Safety Comments Pt's son and assist with his needs. Medication Management Medication Management Caregiver Administers Money Management Money Management Caregiver Provides Assistance Meal Preparation Meal Preparation Caregiver Provides Assist Student Affairs Vice President Student Affairs Vice President Caregiver Provides Assist M6 OT- IP Functional Cognition Start: 01/26/24 12:37 Freq: Status: Active Protocol: Document 01/31/24 13:50 [facility] (Rec: 01/31/24 13:57 [facility] [id number]) Cognitive Factors Limiting Selfcare Function Cognitive Comments Cognitive Assessment Comments Pt able to get words out better, but still hard to make his needs known. M7 OT- IP Mobility and Balance Start: 01/26/24 12:37 Freq: Status: Active Protocol: Document 01/31/24 13:50 [facility] (Rec: 01/31/24 13:57 [facility] [id number]) OT-Transfer Assessment Comments Mobility Comments Unable to stand pt up form the recliner and at this time having to use the Marnie LIft for transfer. OT- Balance Assessment Sitting Balance and Reactions Static Sitting Balance Ability Good Dynamic Sitting Balance Ability Good Standing Balance and Reactions Static Standing Balance Ability Poor Dynamic Standing Balance Ability Poor Comments Other Balance Tests/Deviations/Treatment Worked on weight shifting in : the recliner and techniques to push down on his hands to assist to scoot forwards in the recline. Pt at home pulls on a transer pole and has a lift chair to assist him to come to stand. Educated pt on exercises to adduct his legs today as his knees/hips tend to externally rotate upwards when trying to stand up. M8 OT- IP Objective Assessments Start: 01/26/24 12:37 Freq: Status: Active Protocol: Document 01/26/24 12:38 [facility] (Rec: 01/26/24 12:50 [facility] [id number]) OT Gross Range of Motion Upper Extremity Range of Motion Assessment Left Impaired OT Strength Upper Extremity Strength Assessment Left Impaired Comments Strength Comments LUE 3-/5 M9 OT- IP Assessment and Plan Start: 01/26/24 12:37 Freq: Status: Active Protocol: Document 01/31/24 13:50 [facility] (Rec: 01/31/24 13:57 [facility] [id number]) OT Summary Assessment and Plan Potential Rehabilitation Potential Good Analytic Complexity at Evaluation Moderate Summary OT Impairments Pain,Strength,Balance, Functional Mobility,Self- Feeding,Grooming,Dressing, Toileting,Bathing,Toilet Transfers,Shower Transfers, Activity Tolerance Progress Towards Goals Slow Progress due to Pain,Slow Progress due to Medical Issues,Slow Progress due to Activity Tolerance Assessment Summary Pt not able to come to stand from the recliner today and needing use of marnie for transfer. Pt to go to skilled rehab when medically stable. Pt states wants to go home if not able to go to [facility]. Spoke of car transfer options if having to go home. Goals Self-Feeding Goal Standby Assistance Grooming Goal Standby Assistance Dressing Goal Moderate Assistance Toileting Goal Moderate Assistance Bathing Goal Moderate Assistance Toilet Transfer Goal Moderate Assistance Shower Transfer Goal Moderate Assistance Days to Meet Goals 25 Frequency of Treatment Other frequency 5x/week Treatment Plan OT Treatment Plan ADL Training,Functional Mobility,Patient/Family Education,Discharge Planning Discharge Recommendations OT Discharge Recommendations Home with / Assist Available,Home Health,SNF Rehab,Home vs SNF Other Discharge Recommendations At this time pt would benefit most from SNF Transportation Needs at Discharge Wheelchair/Cabulance
[2024-01-31] MEDS: OXYCODONE IR 5 MG TABLET PO ×3 (13:54→21:05)
--- NOTE | 2024-01-31 14:31 | DI.RAD.S_ITS ---
PROCEDURE: XR CHEST FOR PICC 1V INDICATIONS: PICC line placement COMPARISON: [facility], ANNE-MARIE, XR CHEST 1V, 06/03/2023, 3:03. [facility], ANNE-MARIE, XR CHEST 2V, 03/25/2022, 15:03. FINDINGS: PICC was placed by the intravenous therapy team from the right side. Fluoroscopic spot film demonstrates the tip of PICC projecting to the area of cavoatrial junction. IMPRESSION: Tip of PICC projects to the area of cavoatrial junction. Dictated by: Eriberto Lombardi M.D. on 01/31/2024 at 15:19 Approved by: Eriberto Lombardi M.D. on 01/31/2024 at 15:19
--- NOTE | 2024-01-31 15:19 | CM.DPNOTE ---
DCP Note SCARFER reviewed EMR. per Dr. Lunsford, reports [facility] will follow pt, will need 6 weeks of IV Ceftriaxone 2g Q24. Per RN report, getting PICC line today. Per Anita at , able to accept pt medically just don't know if they will have the beds. Happy to start auth for ins. SCARFER met with pt in room and spouse on speaker phone. Reviewed options between dc to [facility], dc to [facility], or dc home with and inf [facility]. Per pt and spouse, preference is to dc to [facility] but if no beds available, would rather dc home. Hx of [facility]. do not want to dc off [place]. Report has a lift chair/transfer pole at home. Pt concerned about how he would transfer home if he does go home. Per Meghann at [facility], hx of working with pt. would need a whole new referral. Had him on services for RN/OT/PT/COMMERCIAL LENDING RELATIONSHIP MANAGER/SCARFER. happy to take pt back again if pt goes home. if dc to , need to cancel referrals with MISHAChristy and Suzy. P: SNF auth pending, hopeful for [facility] pending bed availability vs Tuesday?? If not, home with [facility]. Both [facility] referrals needed (did not start inf [facility] auth due to auth pending for SNF, if auth started for [facility], could delay SNF auth). [facility] previously completed. CM team will continue to follow closely NEWTON Gomez
--- NOTE | 2024-01-31 15:45 | PM.PN.1 ---
Subjective Subjective Interval history: Patient without complaints today. Culture grew strep mitis. I received a Call from Dr. Whitfield with updated antibiotic recommendations, then also from Dr. Trent. Referral was faxed to the infectious disease office today. Ordered to start ceftriaxone 2g daily starting today. Course will be at least 6 weeks. Ordered for PICC line. Exam Vital Signs (past 8 hours): - 01/31/24 08:35 01/31/24 09:05 01/31/24 09:06 Temperature 96.7 F L Pulse Rate 75 70 71 Respiratory Rate 16 Blood Pressure 117/72 Pulse Oximetry 96 Oxygen Flow Rate 0 01/31/24 14:48 Temperature Pulse Rate 72 Respiratory Rate 16 Blood Pressure 112/71 Pulse Oximetry 98 Oxygen Flow Rate 0 Oxygen Delivery Method Room Air Oxygen Flow Rate 0 Narrative Exam Narrative: NAD, alert and oriented. Slow and slurred speech, chronic. Extremities are free of edema. 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/25/20) Left inguinal hernia Chronic kidney disease (CKD) stage G3a/A1, moderately decreased glomerular filtration rate (GFR) between 45-59 mL/min/1.73 square meter and albuminuria creatinine ratio less than 30 mg/g Atrial fibrillation Surgical History H/O total knee replacement H/O left inguinal hernia repair History of cholecystectomy H/O gastric bypass Family History Family/Other Loud snoring Dementia Father Loud snoring Obesity Hypertension Heart disease Mother Loud snoring Obesity Hypertension Depression Anxiety Family/Other Hypertension Depression Social History household members: spouse and children Smoking Status: Never smoker alcohol intake: never Assessment & Plan Assessment & Plan narrative: 1. Left lateral leg cellulitis and abscess due to strep mitis with possible hardware infection. present on admission and active. -ceftriaxone 2g daily for 6 weeks per ID at [facility]. Referral sent today. Has follow up on 02/13/24 at 11am. -status post incision and drainage on January 24. -Recommends CBC, CMP, CRP, and ESR every Tuesday and , with results faxed to [phone]. Will reorder tomorrow since full set not drawn since 01/24. -ordered PICC line. 2. Chronic diastolic heart failure, present on admission and stable. - no complaints. 3. Dysphagia with regurgitation, chronic and active. 4. A-fib, present on admission and stable. -continue apixiban 7. Hyperlipidemia. Present on admission and active. 8. GERD. Present on admission and active. - Continue pantoprazole 9. BPH. Present on admission and active. -Continue Flomax 10. Constipation. Present on admission and resolved. PLAN: -Phys therapy -SNF auth. -6 weeks antibiotics. -discussed with Dr. trent and Dr. Whitfield today to formulate the above assessment and plan. Full resuscitation EDMUND is 01/29, anticipate 2 midnights necessity for hospital services. Medicine will continue to follow along with the above antibiotics and lab monitoring noted above. Time-Based Coding :: [TOTAL MINUTES] spent with patient and on the chart (including review of chart, obtaining history, exam, reviewing outside data, placing orders, documenting exam and treatment plan, and counseling patient) on [DATE]. Quality VTE Deep Vein Thrombosis/Pulmonary Embolism Present on Admission: No
[2024-01-31] MEDS: ATORVASTATIN 20 MG TABLET 10 MG PO (21:03)
[2024-02-01 02:00] VITALS: BP 113/67; PULSE 77; RESP 17; TEMP 36.1; O2SAT 96
[2024-02-01 05:22] LABS: Alanine Aminotransferase 35 IU/L (<50); Albumin 3.5 g/dL (3.5-5.0); Albumin Globulin Ratio 1.3 (1.0-2.8); Alkaline Phosphatase 103 U/L (38-126); Aspartate Aminotransferase 28 IU/L (17-59); BUN Creatinine Ratio 33.7 (6-22); Bilirubin Total 0.5 mg/dL (0.2-1.3); Blood Urea Nitrogen 31 mg/dL (9-20); Calcium 9.4 mg/dL (8.4-10.2); Carbon Dioxide 27 mmol/L (22-32); Chloride 105 mmol/L (98-107); Estimated Glomerular Filt Rate > 60 mL/min (>60); Globulin 2.8 g/dL (1.7-4.1); Glucose 101 mg/dL (80-110); HEMOLYSIS < 15 (0-50); Potassium 4.2 mmol/L (3.4-5.1); Sodium 137 mmol/L (137-145); Total Protein 6.3 g/dL (6.3-8.2)
[2024-02-01 05:23] LABS: C-Reactive Protein Quant 0.7 mg/dL (<1.0)
[2024-02-01 05:29] LABS: Add Manual Diff / Slide Review NO; Basophils Absolute Auto 0 /uL (0-100); Basophils Percent Auto 0.7 % (0-2); Eosinophils Absolute Auto 200 /uL (0-450); Eosinophils Percent Auto 2.3 % (2-4); Hematocrit 40.9 % (41-53); Hemoglobin 13.1 g/dL (13.5-17.5); Lymphocytes Absolute Auto 1700 /uL (1100-4500); Lymphocytes Percent Auto 25.1 % (25-40); Mean Corpuscular Hemoglobin 27.2 PG (26-34); Mean Corpuscular Volume 85.1 fL (80-100); Monocytes Absolute Auto 600 /uL (0-900); Monocytes Percent Auto 9.6 % (3-14); Neutrophils Absolute Auto 4100 /uL (1500-7000); Neutrophils Percent Auto 62.3 % (50-75); Platelet Count 186 X10^3/uL (150-400); Red Blood Cell Count 4.81 X10^6/uL (4.5-5.9); Red Cell Distribution Width 16.4 % (11.6-14.8); White Blood Cell Count 6.6 X10^3/uL (4.5-11.0)
[2024-02-01] MEDS: PANTOPRAZOLE DR 40 MG TABLET PO (06:10)
[2024-02-01 06:11] LABS: Erythrocyte Sedimentation Rate 20 MM/HR (0-15)
[2024-02-01 07:45] VITALS: BP 107/64; PULSE 73; RESP 16; TEMP 36.3; O2SAT 95
[2024-02-01 08:37] VITALS: BP 107/45; PULSE 95
[2024-02-01] MEDS: cefTRIAXone 2,000 MG in SODIUM CHLORIDE 0.9% 100 ML 200 MG IV (08:37)
[2024-02-01] MEDS: METOPROLOL ER 50 MG TABLET 100 MG PO ×2 (08:37→20:45)
[2024-02-01] MEDS: APIXABAN 5 MG TABLET PO ×2 (08:37→20:46)
[2024-02-01] MEDS: dilTIAZem CD 180 MG CAP PO (08:37)
[2024-02-01] MEDS: SODIUM CHLORIDE 0.9% FLUSH 10 ML IV ×2 (08:38→20:47)
--- NOTE | 2024-02-01 08:51 | P.PN_ITS ---
Subjective Subjective Date Patient Seen: 02/01/24 Time Patient Seen: 08:51 Interval history: Status post I&D left leg abscess and aspiration of left knee joint. Preliminary cultures strep oralis/mitis---same organism that grew last May Bacterial PCR still pending Discussed with ID regarding infection left knee/ leg. left [place] approximately 8 [place] 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 Bilateral tight Achilles. Prior to strokes in May of 2023 stated that he would ambulated with a cane but has been mostly wheelchair balance since his strokes May. he is on chronic Eliquis for anticoagulation. We discussed that options for chronic infection treatment include attempts at chronic suppression with antibiotics versus attempted curative treatment which would be an explant of the total knee. Discussed this would be a large surgery with morbidity. Given patient's overall medical and functional status I have recommended attempt at terminal makeup operator chronic suppression 1st- with a course of IV antibiotics and then likely chronic oral suppression. We discussed if this is not successful then he may still require additional surgery and explant but I believe the attempt at chronic suppression is reasonable for this patient given the severe medical comorbidities and risks. Patient understands and agrees with the plan. We are working on fpc placement for his IV antibiotics course. He will follow up with the Infectious Disease at [facility] as an outpatient. The referral has been placed for this. We will follow up in Orthopedics Clinic in 2-3 weeks for a wound check and suture removal. Dressing can be changed as tolerated. Does have some baseline weakness bilaterally with dorsiflexion about 4/5 but is able to demonstrate active ankle range of motion. Calves are soft. Dressing on the left knee is intact this inspected today. Suture sites healing well just a scant amount of drainage on the dressing. Demonstrates knee range of motion 20- 90 on the left Exam Vital Signs (past 8 hours): - 02/01/24 02:00 02/01/24 07:45 02/01/24 08:37 Temperature 96.9 F L 97.3 F L Pulse Rate 77 73 95 H Respiratory Rate 17 16 Blood Pressure 113/67 107/64 107/45 L Pulse Oximetry 96 95 Oxygen Flow Rate 0 0 Oxygen Delivery Method Room Air Oxygen Flow Rate 0 Objective Labs 02/01/24 04:33 02/01/24 04:33 Labs: Laboratory Results - last 24 hr 02/01/24 04:33 WBC 6.6 RBC 4.81 Hgb 13.1 L Hct 40.9 L MCV 85.1 MCH 27.2 MCHC 32.0 RDW 16.4 H Plt Count 186 Neut % (Auto) 62.3 Lymph % (Auto) 25.1 [place] % (Auto) 9.6 Eos % (Auto) 2.3 Baso % (Auto) 0.7 Neut # (Auto) 4100 Lymph # (Auto) 1700 [place] # (Auto) 600 Eos # (Auto) 200 Baso # (Auto) 0 ESR 20 H Sodium 137 Potassium 4.2 Chloride 105 Carbon Dioxide 27 BUN 31 H Creatinine 0.92 Estimated GFR > 60 BUN/Creatinine Ratio 33.7 H Glucose 101 Calcium 9.4 Total Bilirubin 0.5 AST 28 ALT 35 Alkaline Phosphatase 103 C-Reactive Protein 0.7 Total Protein 6.3 Albumin 3.5 Globulin 2.8 Albumin/Globulin Ratio 1.3 PFSH Medical History Normal cardiac ejection fraction (06/03/23) Aortic stenosis Chronic, continuous use of opioids Iron deficiency anemia following bariatric surgery BPH w/o urinary obs/LUTS DDD (degenerative disc disease), lumbar Pacemaker Allergic rhinitis Obstructive sleep apnea, adult Obesity (BMI 30-39.9) Hyperlipidemia Fatigue due to sleep pattern disturbance GERD (gastroesophageal reflux disease) 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) Left inguinal hernia Chronic kidney disease (CKD) stage G3a/A1, moderately decreased glomerular filtration rate (GFR) between 45-59 mL/min/1.73 square meter and albuminuria creatinine ratio less than 30 mg/g Atrial fibrillation Surgical History H/O total knee replacement H/O left inguinal hernia repair History of cholecystectomy H/O gastric bypass Family History Family/Other Loud snoring Dementia Father Loud snoring Obesity Hypertension Heart disease Mother Loud snoring Obesity Hypertension Depression Anxiety Family/Other Hypertension Depression Social History household members: spouse and children Smoking Status: Never smoker alcohol intake: never Assessment & Plan Post-op Postoperative Procedures: Procedures Operation Date: 01/25/24 14:00 Actual Procedure Side Surgeon p Left knee Irrigation and Debridement and Arthrocentesis Left Chica Whitfield MD Quality VTE Deep Vein Thrombosis/Pulmonary Embolism Present on Admission: No
--- NOTE | 2024-02-01 09:38 | CM.DPNOTE ---
Addendum entered by NEWTON Gomez 02/01/24 12:26: INFRASTRUCTURE DIRECTOR spoke with pt in room. updated on plan. in agreement. INFRASTRUCTURE DIRECTOR answered questions to best of ability. Pt asked if I could call spouse again with updates. INFRASTRUCTURE DIRECTOR spoke with Freda (p [phone]). Spouse in agreement with plan. Denies questions at this time. SL Addendum entered by NEWTON Gomez 02/01/24 10:33: Per Anita at , auth pending, bed availability likely for Tuesday. INFRASTRUCTURE DIRECTOR updated provider to plan for Tuesday. INFRASTRUCTURE DIRECTOR attempted to meet with pt, sleeping heavily/snoring, allowed to rest. INFRASTRUCTURE DIRECTOR lvm with Spouse Freda ([phone]) INFRASTRUCTURE DIRECTOR spoke with son Kulwinder ([phone]) and updated him with plan. Appreciated update. Deny questions and this time and will pass update along to Freda. P: anticipate dc to Tuesday. ins auth pending. Need to officially cancel referrals with [facility]. PASRR previously completed. CM team will continue to follow closely NEWTON Gomez Original Note: DCP Note INFRASTRUCTURE DIRECTOR reviewed EMR ins auth/bed availability at pending. INFRASTRUCTURE DIRECTOR spoke with Loni from [facility]. Updated that the primary plan is for SNF placement but wanted to send referral as backup plan. Loni will review referral but not push for auth until they hear more from this team. Per chart review, pt got PICC yesterday afternoon. P: SNF auth pending, hopeful for [facility] pending bed availability vs Tuesday?? If not, home with [facility]. [facility] referral needed, need to update [facility] to start auth request if no SNF. (did not start [facility] auth due to auth pending for SNF, if auth started for [facility], could delay SNF auth). PASRR previously completed. CM team will continue to follow closely NEWTON Gomez
--- NOTE | 2024-02-01 10:55 | PT.IPTN ---
Current Diagnoses Cutaneous abscess of left lower limb (01/25/24) Pain due to internal orthopedic prosthetic devices, implants and grafts, initial encounter (01/25/24) Presence of unspecified artificial knee joint (01/25/24) Surgery Performed Operation Date: 01/25/24 14:00 Actual Procedures p Left knee Irrigation and Debridement and Arthrocentesis(Left) - Chica Whitfield MD Physical Therapy Treatment Note M2 PT-IP Current Condition Start: 01/26/24 08:30 Freq: NEEDED Status: Active Protocol: Document 01/26/24 10:35 MB (Rec: 01/26/24 11:32 MB [id number]) Physical Therapy Current Condition Current Condition Evaluation Date 01/26/24 Treatment Diagnosis History of strokes and leg weakness, acute LLE abscess and I&D M3 PT-IP Subjective Start: 01/26/24 08:30 Freq: NEEDED Status: Active Protocol: Document 02/01/24 10:55 AB (Rec: 02/01/24 12:20 AB [id number]) Subjective Physical Therapy Visit Type Type Treatment Note Visit Start Time 10:55 Visit Stop Time 11:25 Number of ACCOUNTING TECHNICIAN Visits 0 Physical Therapy Visit Comments Patient Comments agreeable to do PT M4 PT-IP Mobility and Gait Start: 01/26/24 08:30 Freq: NEEDED Status: Active Protocol: Document 02/01/24 10:55 AB (Rec: 02/01/24 12:20 AB [id number]) PT-Bed Mobility Assessment Supine to Sit Supine to Sit Maximum Assistance,1 Person Assistance,2 Person Assistance ,Head of Bed Elevated,Bedrails Scooting Scooting to Edge of Bed Maximum Assistance PT-Transfer Assessment Sit to and From Stand Sit to and from Stand Maximum Assistance,2 Person Assistance,Use of Upper Extremities Equipment Transfer Assistive Device Gait Belt,Front Wheeled Walker Orthotic/Prosthetic Devices or Brace: No Transfers Transfer Destination Chair Transfer Technique Stand Step Pivot Transfer Ability Level of Assist Maximum Assistance,2 Person Assistance,Use of Upper Extremities Comments Mobility Comments pt supine in bed and agreed to do PT. completed supine to sit max A x 1-2 and max cues. HOB elevated and pt used bed rail to assist. max A x 1-2 for scooting to EOB. completed sit to stand max Ax 2 and max cues and step transfer to chair using FWW max A x 2 and max cues. pt sat on the chair and rested. agreed to stand up again. completed sit to stand from chair max A x 2 and max cues. able to stand using fWW for support max A x 2 and max cues . continues to have increase posterior trunk LOB. cued to use UE on FWW for support. pt required max A x 2 for controlled descent to chair. positioned pt on the chair. call light and table placed within reach. M5 PT-IP Objective Assessments Start: 01/26/24 08:30 Freq: NEEDED Status: Active Protocol: Document 01/26/24 10:35 MB (Rec: 01/26/24 11:32 MB [id number]) Orientation Orientation/Cognition Level of Alertness Alert Orientation Name,Birthday,Place,Situation Language Function Ability Word Finding Difficulties Safety Awareness Decreased Safety Awareness Comments Pt with trouble with communication and this is a barrier to orientation questions and providing PLOF Gross Range of Motion Upper Extremity ROM Assessment Bilaterally Impaired Impairments Defer to OT note Lower Extremity ROM Assessment Bilaterally Impaired Impairments LLE with more impairment than the right but limited range and strength both legs all joints, pt does not tolerate ROM or MMT well today Strength Lower Extremity Strength Assessment Bilaterally Impaired Comments Strength Comments Severely weak legs with more changes on the right and celina wrap and dressing today Coordination Assessment Gross Coordination Gross Coordination Impaired Assessment Coordination Comments Pt does not tolerate formal testing Sensation Assessment Comments Sensation Comments Pt does not tolerate formal testing Muscle Tone Muscle Tone WNL No Comments Muscle Tone Comments Increased PF tone M6 PT-IP Treatment Start: 01/26/24 08:30 Freq: NEEDED Status: Active Protocol: Document 02/01/24 10:55 AB (Rec: 02/01/24 12:20 AB [id number]) Physical Therapy Treatment Education Education Provided Safety M7 PT-IP Assessment and Plan Start: 01/26/24 08:30 Freq: NEEDED Status: Active Protocol: Document 02/01/24 10:55 AB (Rec: 02/01/24 12:20 AB [id number]) PT Summary Assessment and Plan Potential Rehabilitation Potential Fair Summary Impairments Pain,ROM,Strength,Balance, Coordination,Sensation,Tone, Cognition,Bed Mobility, Transfers,Gait,Activity Tolerance Progress Towards Goals Slow Progress due to Medical Issues,Slow Progress due to Activity Tolerance Assessment Summary pt continues to require max A x 2 for mobility and will benefit from SNF rehab to improve overall strength and function. Goals Bed Mobility Goal Moderate Assistance Transfer Goal Minimal Assistance,Front Wheeled Walker Gait Goal Moderate Assistance,Front Wheel Walker Gait Distance 20 Days to Meet Goals 10 Frequency of Treatment Frequency Of Treatment Once a Day Treatment Plan Physical Therapy Treatment Plan Bed Mobility Training,Transfer Training,Therapeutic Exercise ,Balance Retraining,Discharge Planning,Hot or Cold Pack, Neuromuscular Re-ed, Coordination Retraining,Manual Therapy Precautions Other Precautions Fall risk Weight Bearing Status Weight Bearing Status Weight Bear as Tolerated Allowed Weight Bearing Amount (enter % LLE WBAT or #) (%) Recommendations To Nursing Amount of Assist Needed Mechanical Lift Discharge Recommendations PT Discharge Recommendations SNF Rehab Transportation Needs at Discharge Wheelchair/Cabulance
[2024-02-01] MEDS: ACETAMINOPHEN 325 MG TABLET 975 MG PO (12:04)
[2024-02-01] MEDS: OXYCODONE IR 5 MG TABLET PO (12:04)
--- NOTE | 2024-02-01 12:58 | PM.PN.1 ---
Subjective Subjective Interval history: Patient without complaints today. Awaiting SNF which may not be until 02/02. Exam Vital Signs (past 8 hours): - 02/01/24 07:45 02/01/24 08:37 Temperature 97.3 F L Pulse Rate 73 95 H Respiratory Rate 16 Blood Pressure 107/64 107/45 L Pulse Oximetry 95 Oxygen Flow Rate 0 Oxygen Delivery Method Room Air Oxygen Flow Rate 0 Narrative Exam Narrative: NAD, alert and oriented. Slow and slurred speech, chronic. Extremities are free of edema. Objective Labs 02/01/24 04:33 02/01/24 04:33 Labs: Laboratory Results - last 24 hr 02/01/24 04:33 WBC 6.6 RBC 4.81 Hgb 13.1 L Hct 40.9 L MCV 85.1 MCH 27.2 MCHC 32.0 RDW 16.4 H Plt Count 186 Neut % (Auto) 62.3 Lymph % (Auto) 25.1 [place] % (Auto) 9.6 Eos % (Auto) 2.3 Baso % (Auto) 0.7 Neut # (Auto) 4100 Lymph # (Auto) 1700 [place] # (Auto) 600 Eos # (Auto) 200 Baso # (Auto) 0 ESR 20 H Sodium 137 Potassium 4.2 Chloride 105 Carbon Dioxide 27 BUN 31 H Creatinine 0.92 Estimated GFR > 60 BUN/Creatinine Ratio 33.7 H Glucose 101 Calcium 9.4 Total Bilirubin 0.5 AST 28 ALT 35 Alkaline Phosphatase 103 C-Reactive Protein 0.7 Total Protein 6.3 Albumin 3.5 Globulin 2.8 Albumin/Globulin Ratio 1.3 [facility] Medical History Normal cardiac ejection fraction (06/03/23) Aortic stenosis Chronic, continuous use of opioids Iron deficiency anemia following bariatric surgery BPH w/o urinary obs/LUTS DDD (degenerative disc disease), lumbar Pacemaker Allergic rhinitis Obstructive sleep apnea, adult Obesity (BMI 30-39.9) Hyperlipidemia Fatigue due to sleep pattern disturbance GERD (gastroesophageal reflux disease) 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) Left inguinal hernia Chronic kidney disease (CKD) stage G3a/A1, moderately decreased glomerular filtration rate (GFR) between 45-59 mL/min/1.73 square meter and albuminuria creatinine ratio less than 30 mg/g Atrial fibrillation Surgical History H/O total knee replacement H/O left inguinal hernia repair History of cholecystectomy H/O gastric bypass Family History Family/Other Loud snoring Dementia Father Loud snoring Obesity Hypertension Heart disease Mother Loud snoring Obesity Hypertension Depression Anxiety Family/Other Hypertension Depression Social History household members: spouse and children Smoking Status: Never smoker alcohol intake: never Assessment & Plan Assessment & Plan narrative: 1. Left lateral leg cellulitis and abscess due to strep mitis with possible hardware infection. present on admission and active. -ceftriaxone 2g daily for at least 6 weeks per ID at [facility]. Referral sent on 01/31/24. Has follow up on 02/13/24 at 11am. -status post incision and drainage on January 24. -Recommends CBC, CMP, CRP, and ESR every Tuesday and , with results faxed to [phone]. Last done today, 01/31 and labs are unremarkable. Ordered for next set on discharge day planned for 02/02. -ordered PICC line. 2. Chronic diastolic heart failure, present on admission and stable. - no complaints. 3. Dysphagia with regurgitation, chronic and active. 4. A-fib, present on admission and stable. -continue apixiban 7. Hyperlipidemia. Present on admission and active. 8. GERD. Present on admission and active. - Continue pantoprazole 9. BPH. Present on admission and active. -Continue Flomax 10. Constipation. Present on admission and resolved. PLAN: -Phys therapy -SNF auth. -6 weeks antibiotics. Full resuscitation EDMUND is 02/02 to SNF Medicine will continue to follow along with the above antibiotics and lab monitoring noted above. May not write a note daily. Time-Based Coding :: [TOTAL MINUTES] spent with patient and on the chart (including review of chart, obtaining history, exam, reviewing outside data, placing orders, documenting exam and treatment plan, and counseling patient) on [DATE]. Quality VTE Deep Vein Thrombosis/Pulmonary Embolism Present on Admission: No
--- NOTE | 2024-02-01 13:00 | OT.IP.TRT ---
Current Diagnoses Cutaneous abscess of left lower limb (01/25/24) Pain due to internal orthopedic prosthetic devices, implants and grafts, initial encounter (01/25/24) Presence of unspecified artificial knee joint (01/25/24) Surgery Performed Operation Date: 01/25/24 14:00 Actual Procedures p Left knee Irrigation and Debridement and Arthrocentesis(Left) - Chica Whitfield MD Occupational Therapy Treatment Note M2 OT-IP Current Condition Start: 01/26/24 12:37 Freq: Status: Active Protocol: Document 01/26/24 12:38 [facility] (Rec: 01/26/24 12:50 [facility] [id number]) Occupational Therapy Current Condition Current Condition Evaluation Date 01/26/24 Treatment Diagnosis S/P Left thigh abscess drainage Diagnosis Onset Date 01/25/24 Weight Bearing Status Weight Bearing Status Weight Bear as Tolerated M3 OT- IP Subjective and Pain Start: 01/26/24 12:37 Freq: Status: Active Protocol: Document 02/01/24 13:23 [facility] (Rec: 02/01/24 13:45 [facility] [id number]) OT- Subjective Occupational Therapy Visit Type Type Treatment Note Visit Start Time 13:00 Visit Stop Time 13:21 Occupational Therapy Visit Comments Patient Comments Pt agreed to try to get up and wanted to brush his teeth. Patient/Caregiver Goals To go to [facility]. OT Pain Assessment Pain When Pain Assessed At Rest Pain Present Pain Present Pain Reported Location Left Knee Pain Behaviors Holding Area M4 OT- IP ADL's Start: 01/26/24 12:37 Freq: Status: Active Protocol: Document 02/01/24 13:23 [facility] (Rec: 02/01/24 13:45 [facility] [id number]) OT ADL-Grooming General Evaluation Grooming Ability Standby Assistance Areas Needing Assistance Retrieving/Set-up of Grooming Items,Face Washing Comments OT Grooming Comments while seated in recliner OT ADL-Oral Care General Eval Oral Care Ability Standby Assistance Areas of Assistance Brushing Teeth Comments Oral Care Comments seated in chair at sink OT ADL-Dressing General Eval Lower Body Dressing Ability Total Assistance Areas Needing Assistance Socks,Shoes Comments OT Dressing Comments Pt requested that shoes be donned for transfer. M5 OT- IP IADL's Start: 01/26/24 12:37 Freq: Status: Active Protocol: Document 01/26/24 12:38 [facility] (Rec: 01/26/24 12:50 [facility] [id number]) OT-Instrumental Activities of Daily Living Home Safety Awareness Home Safety Comments Pt's son and assist with his needs. Medication Management Medication Management Caregiver Administers Money Management Money Management Caregiver Provides Assistance Meal Preparation Meal Preparation Caregiver Provides Assist Punchboard Filling Machine Operator Punchboard Filling Machine Operator Caregiver Provides Assist M6 OT- IP Functional Cognition Start: 01/26/24 12:37 Freq: Status: Active Protocol: Document 02/01/24 13:23 [facility] (Rec: 02/01/24 13:45 [facility] [id number]) Cognitive Factors Limiting Selfcare Function Cognitive Ability Level of Alertness Alert Patient Orientation Name,Place,Situation Attention Span Ability Capable of Focused Attention, Capable of Sustained Attention Memory Description Short Term Impaired Cognitive Comments Cognitive Assessment Comments Pt not remembering what OT worked on with pt. Pt will needing step by step commands for safety and mobility needs. M7 OT- IP Mobility and Balance Start: 01/26/24 12:37 Freq: Status: Active Protocol: Document 02/01/24 13:23 [facility] (Rec: 02/01/24 13:45 [facility] [id number]) OT-Transfer Assessment Sit to and From Stand Sit to and from Stand Maximum Assistance,2 Person Assistance Devices Transfer Assistive Devices Gait Belt,Front Wheeled Walker Comments Mobility Comments Pt able to stand with MAX AX 2 to the FWW. Pt heavily leaning back in posterior tilt and wanting to sit back down. Nursing aid came in to assist pt back to bed with the matthew lift. M8 OT- IP Objective Assessments Start: 01/26/24 12:37 Freq: Status: Active Protocol: Document 01/26/24 12:38 [facility] (Rec: 01/26/24 12:50 [facility] [id number]) OT Gross Range of Motion Upper Extremity Range of Motion Assessment Left Impaired OT Strength Upper Extremity Strength Assessment Left Impaired Comments Strength Comments LUE 3-/5 M9 OT- IP Assessment and Plan Start: 01/26/24 12:37 Freq: Status: Active Protocol: Document 02/01/24 13:23 [facility] (Rec: 02/01/24 13:45 [facility] [id number]) OT Summary Assessment and Plan Potential Rehabilitation Potential Good Analytic Complexity at Evaluation Moderate Summary OT Impairments Pain,Strength,Balance, Functional Mobility,Self- Feeding,Grooming,Dressing, Toileting,Bathing,Toilet Transfers,Shower Transfers, Activity Tolerance Progress Towards Goals Slow Progress due to Pain,Slow Progress due to Medical Issues,Slow Progress due to Activity Tolerance Assessment Summary Pt able to do oral care need after set-up. Pt needing maxAX2 to stand to the FWW but not able to take any steps and needing use of the Matthew Lift. Pt to go to skilled rehab when medically stable. Goals Self-Feeding Goal Standby Assistance Grooming Goal Standby Assistance Dressing Goal Moderate Assistance Toileting Goal Moderate Assistance Bathing Goal Moderate Assistance Toilet Transfer Goal Moderate Assistance Shower Transfer Goal Moderate Assistance Days to Meet Goals 25 Frequency of Treatment Other frequency 5x/week Treatment Plan OT Treatment Plan ADL Training,Functional Mobility,Patient/Family Education,Discharge Planning Discharge Recommendations OT Discharge Recommendations SNF Rehab Transportation Needs at Discharge Wheelchair/Cabulance
[2024-02-01 16:00] VITALS: BP 111/76; PULSE 79; RESP 16; TEMP 36.6; O2SAT 98
[2024-02-01 20:00] VITALS: BP 105/65; PULSE 70; RESP 18; TEMP 36.4; O2SAT 96
[2024-02-01 20:45] VITALS: BP 105/65; PULSE 70
[2024-02-01] MEDS: ATORVASTATIN 20 MG TABLET 10 MG PO (20:46)
[2024-02-02 02:00] VITALS: BP 108/65; PULSE 71; RESP 18; TEMP 36.2; O2SAT 96
[2024-02-02] MEDS: PANTOPRAZOLE DR 40 MG TABLET PO (06:01)
--- NOTE | 2024-02-02 07:44 | P.PN_ITS ---
Subjective Subjective Interval history: Summary: Patient without complaints today. Awaiting SNF which may not be until 02/02. S: He was doing well, I was able to see his wound during his dressing change and it looks clean without any drainage or erythema. He denies any pain issues. He has been working with his incentive spirometer, he was a dry cough but denies any dyspnea. The plan is for nursing facility tomorrow pending insurance authorization. Exam Vital Signs (past 8 hours): - 02/02/24 02:00 Temperature 97.2 F L Pulse Rate 71 Respiratory Rate 18 Blood Pressure 108/65 Pulse Oximetry 96 Oxygen Flow Rate 0 Oxygen Delivery Method Room Air Oxygen Flow Rate 0 Narrative Exam Narrative: NAD, alert and oriented. Slow and slurred speech, this is chronic. Lungs are clear, normal rate and effort. Heart is regular, no murmur gallop or rub. Abdomen is soft, non distended. Extremities are free of edema. Left knee incision was inspected, sutures in place, there is no redness, or drainage. 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) Left inguinal hernia Chronic kidney disease (CKD) stage G3a/A1, moderately decreased glomerular filtration rate (GFR) between 45-59 mL/min/1.73 square meter and albuminuria creatinine ratio less than 30 mg/g Atrial fibrillation Surgical History H/O total knee replacement H/O left inguinal hernia repair History of cholecystectomy H/O gastric bypass Family History Family/Other Loud snoring Dementia Father Loud snoring Obesity Hypertension Heart disease Mother Loud snoring Obesity Hypertension Depression Anxiety Family/Other Hypertension Depression Social History household members: spouse and children Smoking Status: Never smoker alcohol intake: never Assessment & Plan Assessment & Plan narrative: 1. Left lateral leg cellulitis and abscess due to strep mitis with possible hardware infection. present on admission and active. -ceftriaxone 2g daily for at least 6 weeks per ID at [facility]. Referral sent on 01/31/24. Has follow up on 02/13/24 at 11am. -status post incision and drainage on January 24. -Recommends CBC, CMP, CRP, and ESR every Tuesday and , with results faxed to [phone]. Last done today, 01/31 and labs are unremarkable. Ordered for next set on discharge day planned for 02/02. -ordered PICC line. 2. Chronic diastolic heart failure, present on admission and stable. - no complaints. 3. Dysphagia with regurgitation, chronic and active. 4. A-fib, present on admission and stable. -continue apixiban 7. Hyperlipidemia. Present on admission and active. 8. GERD. Present on admission and active. - Continue pantoprazole 9. BPH. Present on admission and active. -Continue Flomax 10. Constipation. Present on admission and resolved. PLAN: -Phys therapy -SNF auth. -6 weeks antibiotics. Full resuscitation EDMUND is 02/02 to SNF Time-Based Coding :: [TOTAL MINUTES] spent with patient and on the chart (including review of chart, obtaining history, exam, reviewing outside data, placing orders, documenting exam and treatment plan, and counseling patient) on [DATE]. Quality VTE Deep Vein Thrombosis/Pulmonary Embolism Present on Admission: No
[2024-02-02 08:00] VITALS: BP 125/67; PULSE 72; RESP 17; TEMP 36.6; O2SAT 98
--- NOTE | 2024-02-02 08:34 | PT.IPTN ---
Current Diagnoses Cutaneous abscess of left lower limb (01/25/24) Pain due to internal orthopedic prosthetic devices, implants and grafts, initial encounter (01/25/24) Presence of unspecified artificial knee joint (01/25/24) Surgery Performed Operation Date: 01/25/24 14:00 Actual Procedures p Left knee Irrigation and Debridement and Arthrocentesis(Left) - Chica Whitfield MD Physical Therapy Treatment Note M2 PT-IP Current Condition Start: 01/26/24 08:30 Freq: NEEDED Status: Active Protocol: Document 02/02/24 08:14 SP (Rec: 02/02/24 08:50 SP [id number]) Physical Therapy Current Condition Current Condition Evaluation Date 01/26/24 Treatment Diagnosis History of strokes and leg weakness, acute LLE abscess and I&D M3 PT-IP Subjective Start: 01/26/24 08:30 Freq: NEEDED Status: Active Protocol: Document 02/02/24 08:14 SP (Rec: 02/02/24 08:50 SP [id number]) Subjective Physical Therapy Visit Type Type Treatment Note Visit Start Time 08:14 Visit Stop Time 08:34 Number of CO FOUNDER Visits 1 Physical Therapy Visit Comments Patient Comments Pt agreeable to working with CO FOUNDER. M4 PT-IP Mobility and Gait Start: 01/26/24 08:30 Freq: NEEDED Status: Active Protocol: Document 02/02/24 08:14 SP (Rec: 02/02/24 08:50 SP [id number]) PT-Bed Mobility Assessment Supine to Sit Supine to Sit Maximum Assistance,Head of Bed Elevated,Bedrails Scooting Scooting to Edge of Bed Maximum Assistance PT-Transfer Assessment Sit to and From Stand Sit to and from Stand Maximum Assistance,2 Person Assistance Equipment Transfer Assistive Device Gait Belt,Front Wheeled Walker Orthotic/Prosthetic Devices or Brace: No Transfers Transfer Destination Chair Transfer Technique Squat Pivot Transfer Ability Level of Assist Maximum Assistance,2 Person Assistance,Use of Upper Extremities Comments Mobility Comments Pt elevated supine 40 deg in bed, willing to participate with CO FOUNDER. CO FOUNDER instructed pt on BLEs ankle pumps, heel slides slow tolerant range before mobility. Pt completed supine> sit Max A x1 for trunk righting and scoot to EOB. Max A x2 for sit<>stand, max cues for motor planning, unable progress steps with heavy retro lean but able to stand up to 15 sec. Squat pivot transfer Max A x2 tactile cues for BUE positioning bed>chair , pt able to scoot self back in chair. Nurse and BALANCE TRUER took over care. Gait Assessment Comments Gait Comments Unable to progress further in standing for 15 sec Max A x2. PT-Balance Assessment Sitting Balance and Reactions Static Sitting Balance Ability Good Dynamic Sitting Balance Ability Fair Standing Balance and Reactions Static Standing Balance Ability Poor Device Used FWW M5 PT-IP Objective Assessments Start: 01/26/24 08:30 Freq: NEEDED Status: Active Protocol: Document 01/26/24 10:35 MB (Rec: 01/26/24 11:32 MB [id number]) Orientation Orientation/Cognition Level of Alertness Alert Orientation Name,Birthday,Place,Situation Language Function Ability Word Finding Difficulties Safety Awareness Decreased Safety Awareness Comments Pt with trouble with communication and this is a barrier to orientation questions and providing PLOF Gross Range of Motion Upper Extremity ROM Assessment Bilaterally Impaired Impairments Defer to OT note Lower Extremity ROM Assessment Bilaterally Impaired Impairments LLE with more impairment than the right but limited range and strength both legs all joints, pt does not tolerate ROM or MMT well today Strength Lower Extremity Strength Assessment Bilaterally Impaired Comments Strength Comments Severely weak legs with more changes on the right and celina wrap and dressing today Coordination Assessment Gross Coordination Gross Coordination Impaired Assessment Coordination Comments Pt does not tolerate formal testing Sensation Assessment Comments Sensation Comments Pt does not tolerate formal testing Muscle Tone Muscle Tone WNL No Comments Muscle Tone Comments Increased PF tone M6 PT-IP Treatment Start: 01/26/24 08:30 Freq: NEEDED Status: Active Protocol: Document 02/02/24 08:14 SP (Rec: 02/02/24 08:50 SP [id number]) Physical Therapy Treatment Exercises Exercises Ankle Pumps,Heel Slides Education Education Provided Safety M7 PT-IP Assessment and Plan Start: 01/26/24 08:30 Freq: NEEDED Status: Active Protocol: Document 02/02/24 08:14 SP (Rec: 02/02/24 08:50 SP [id number]) PT Summary Assessment and Plan Potential Rehabilitation Potential Fair Status of Condition at Evaluation Evolving Summary Impairments Pain,ROM,Strength,Balance, Coordination,Sensation,Tone, Cognition,Bed Mobility, Transfers,Gait,Activity Tolerance Progress Towards Goals Slow Progress due to Medical Issues,Slow Progress due to Activity Tolerance Assessment Summary Pt was able to progress elevated bed mobility sup>sit and scoot to EOB Max A x1. Heavy Max A x2 for sit<>stand with FWW but unable to progress stand step pivot today due to unsteady retro lean, was able to stand for 15 sec. Max A x2 squat pivot transfer bed>chair. Pt would benefit from SNF rehab to improved overall strength and functional mobility. Goals Bed Mobility Goal Moderate Assistance Transfer Goal Minimal Assistance,Front Wheeled Walker Gait Goal Moderate Assistance,Front Wheel Walker Gait Distance 20 Days to Meet Goals 10 Frequency of Treatment Frequency Of Treatment Once a Day Treatment Plan Physical Therapy Treatment Plan Bed Mobility Training,Transfer Training,Therapeutic Exercise ,Balance Retraining,Discharge Planning,Hot or Cold Pack, Neuromuscular Re-ed, Coordination Retraining,Manual Therapy Other Recommendations and Next Treatment sit<>stands, transfers. Focus Precautions Other Precautions Fall risk Weight Bearing Status Weight Bearing Status Weight Bear as Tolerated Allowed Weight Bearing Amount (enter % LLE WBAT or #) (%) Recommendations To Nursing Amount of Assist Needed Mechanical Lift Discharge Recommendations PT Discharge Recommendations SNF Rehab Transportation Needs at Discharge Wheelchair/Cabulance
[2024-02-02 08:48] LABS: Hematocrit 41.6 % (41-53); Hemoglobin 13.6 g/dL (13.5-17.5); Mean Corpuscular HGB Conc 32.7 % (30-36); Mean Corpuscular Hemoglobin 27.9 PG (26-34); Mean Corpuscular Volume 85.2 fL (80-100); Platelet Count 183 X10^3/uL (150-400); Red Blood Cell Count 4.88 X10^6/uL (4.5-5.9); Red Cell Distribution Width 16.5 % (11.6-14.8); White Blood Cell Count 6.3 X10^3/uL (4.5-11.0)
[2024-02-02] MEDS: dilTIAZem CD 180 MG CAP PO (08:55)
[2024-02-02] MEDS: APIXABAN 5 MG TABLET PO ×2 (08:55→20:40)
[2024-02-02] MEDS: ACETAMINOPHEN 325 MG TABLET 975 MG PO ×2 (08:55→16:05)
[2024-02-02 08:56] VITALS: BP 126/67; PULSE 72
[2024-02-02] MEDS: METOPROLOL ER 50 MG TABLET 100 MG PO ×2 (08:56→20:40)
[2024-02-02] MEDS: LORATADINE 10 MG TABLET PO (08:56)
[2024-02-02 09:23] LABS: Alanine Aminotransferase 35 IU/L (<50); Albumin 3.7 g/dL (3.5-5.0); Albumin Globulin Ratio 1.3 (1.0-2.8); Alkaline Phosphatase 118 U/L (38-126); Aspartate Aminotransferase 28 IU/L (17-59); BUN Creatinine Ratio 32.6 (6-22); Bilirubin Total 0.6 mg/dL (0.2-1.3); Blood Urea Nitrogen 28 mg/dL (9-20); Calcium 9.3 mg/dL (8.4-10.2); Carbon Dioxide 27 mmol/L (22-32); Chloride 106 mmol/L (98-107); Estimated Glomerular Filt Rate > 60 mL/min (>60); Globulin 2.9 g/dL (1.7-4.1); Glucose 105 mg/dL (80-110); HEMOLYSIS < 15 (0-50); Potassium 4.1 mmol/L (3.4-5.1); Sodium 139 mmol/L (137-145); Total Protein 6.6 g/dL (6.3-8.2)
[2024-02-02] MEDS: cefTRIAXone 2,000 MG in SODIUM CHLORIDE 0.9% 100 ML 200 MG IV (09:27)
[2024-02-02] MEDS: SODIUM CHLORIDE 0.9% FLUSH 10 ML IV ×2 (09:30→20:41)
--- NOTE | 2024-02-02 11:01 | P.PN_ITS ---
Subjective Subjective Date Patient Seen: 02/02/24 Time Patient Seen: 11:02 Interval history: Patient states he feels well today. No nausea vomiting fever or chills. His dressing was changed this morning. He describes an ache along the wound site, but no new pain or numbness. Exam Vital Signs (past 8 hours): - 02/02/24 08:00 02/02/24 08:56 Temperature 97.8 F Pulse Rate 72 72 Respiratory Rate 17 Blood Pressure 125/67 126/67 Pulse Oximetry 98 Oxygen Flow Rate 0 Oxygen Delivery Method Room Air Oxygen Flow Rate 0 Narrative Exam Narrative: Patient found seating in the chair. The dressing has been changed and dated today. Bilateral lower extremities are well perfused. Sensation intact to light touch bilaterally. 5/5 EHL, DF, PF, bilaterally. Resp Effort & Inspection: normal respiratory effort and able to speak in complete sentences Objective Labs 02/02/24 08:36 02/02/24 08:36 Labs: Laboratory Results - last 24 hr 02/02/24 08:36 WBC 6.3 RBC 4.88 Hgb 13.6 Hct 41.6 MCV 85.2 MCH 27.9 MCHC 32.7 RDW 16.5 H Plt Count 183 Sodium 139 Potassium 4.1 Chloride 106 Carbon Dioxide 27 BUN 28 H Creatinine 0.86 Estimated GFR > 60 BUN/Creatinine Ratio 32.6 H Glucose 105 Calcium 9.3 Total Bilirubin 0.6 AST 28 ALT 35 Alkaline Phosphatase 118 Total Protein 6.6 Albumin 3.7 Globulin 2.9 Albumin/Globulin Ratio 1.3 PFSH Medical History Normal cardiac ejection fraction (06/03/23) Aortic stenosis Chronic, continuous use of opioids Iron deficiency anemia following bariatric surgery BPH w/o urinary obs/LUTS DDD (degenerative disc disease), lumbar Pacemaker Allergic rhinitis Obstructive sleep apnea, adult Obesity (BMI 30-39.9) Hyperlipidemia Fatigue due to sleep pattern disturbance GERD (gastroesophageal reflux disease) Essential 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) Left inguinal hernia Chronic kidney disease (CKD) stage G3a/A1, moderately decreased glomerular filtration rate (GFR) between 45-59 mL/min/1.73 square meter and albuminuria creatinine ratio less than 30 mg/g Atrial fibrillation Surgical History H/O total knee replacement H/O left inguinal hernia repair History of cholecystectomy H/O gastric bypass Family History Family/Other Loud snoring Dementia Father Loud snoring Obesity Hypertension Heart disease Mother Loud snoring Obesity Hypertension Depression Anxiety Family/Other Hypertension Depression Social History household members: spouse and children Smoking Status: Never smoker alcohol intake: never Assessment & Plan Post-op Postoperative Procedures: Procedures Operation Date: 01/25/24 14:00 Actual Procedure Side Surgeon p Left knee Irrigation and Debridement and Arthrocentesis Left Chica Whitfield MD Postoperative day: 8 Postoperative plan narrative: Ceftriaxone 2000 mg IV daily per recommendations. cmp, cbc, esr, crp Mondays and . Continue with Eliquis 5mg bid for DVT prevention. Multi-modal pain control. Ambulate with PT Dressing changes as needed Plan to DC to SNF [facility] on 02/02 Time Spent With Patient Time with patient: 15-24 minutes Quality VTE Deep Vein Thrombosis/Pulmonary Embolism Present on Admission: No
--- NOTE | 2024-02-02 11:43 | CM.DPNOTE ---
DCP Note MEDICAL STAFF COORDINATOR reviewed EMR. MEDICAL STAFF COORDINATOR spoke with Estuardo from [facility], cancelled referral. MEDICAL STAFF COORDINATOR spoke with Seble from [facility], cancelled referral. From Anita at , auth still pending but should hear back today. Set up transport for 1330 Tuesday. Per hospitalist in morning rounds, pt should be good to dc Tuesday. MEDICAL STAFF COORDINATOR messaged ortho PA with updates. MEDICAL STAFF COORDINATOR updated spouse Freda (p [phone]). appreciated updates and in agreement with plan. MEDICAL STAFF COORDINATOR updated pt in room. in agreement with plan. MEDICAL STAFF COORDINATOR answered questions to the best of ability. P: dc to tomorrow at 1330. PASRR previously completed. CM team will continue to follow as needed [place] Gomez
[2024-02-02] MEDS: OXYCODONE IR 5 MG TABLET PO ×2 (11:48→16:04)
--- NOTE | 2024-02-02 15:38 | OT.IP.TRT ---
Current Diagnoses Cutaneous abscess of left lower limb (01/25/24) Pain due to internal orthopedic prosthetic devices, implants and grafts, initial encounter (01/25/24) Presence of unspecified artificial knee joint (01/25/24) Surgery Performed Operation Date: 01/25/24 14:00 Actual Procedures p Left knee Irrigation and Debridement and Arthrocentesis(Left) - Chica Whitfield MD Occupational Therapy Treatment Note M2 OT-IP Current Condition Start: 01/26/24 12:37 Freq: Status: Active Protocol: Document 01/26/24 12:38 CCC (Rec: 01/26/24 12:50 [facility] [id number]) Occupational Therapy Current Condition Current Condition Evaluation Date 01/26/24 Treatment Diagnosis S/P Left thigh abscess drainage Diagnosis Onset Date 01/25/24 Weight Bearing Status Weight Bearing Status Weight Bear as Tolerated M3 OT- IP Subjective and Pain Start: 01/26/24 12:37 Freq: Status: Active Protocol: Document 02/02/24 15:44 CGR (Rec: 02/02/24 15:55 CGR [id number]) OT- Subjective Occupational Therapy Visit Type Type Treatment Note Visit Start Time 15:19 Visit Stop Time 15:38 Notes Pt requesting to wash up. OT Pain Assessment Pain When Pain Assessed At Rest Pain Present Pain Present Denied Pain M4 OT- IP ADL's Start: 01/26/24 12:37 Freq: Status: Active Protocol: Document 02/02/24 15:44 CGR (Rec: 02/02/24 15:55 CGR [id number]) OT [id number] Comments OT Self-Feeding Comments Not meal time OT ADL-Grooming General Evaluation Grooming Ability Standby Assistance Areas Needing Assistance Face Washing Comments OT Grooming Comments Seated in chair for washing face. OT ADL-Oral Care General Eval Oral Care Ability Standby Assistance Areas of Assistance Brushing Teeth,Retrieving/Set- Up of Items Comments Oral Care Comments Seated in chair for brushing teeth. OT ADL-Dressing Comments OT Dressing Comments not performed OT ADL-Toileting Comments OT Toileting Comments not performed OT ADL-Bathing Comments OT Bathing Comments not performed M5 OT- IP IADL's Start: 01/26/24 12:37 Freq: Status: Active Protocol: Document 01/26/24 12:38 CCC (Rec: 01/26/24 12:50 CCC [id number]) OT-Instrumental Activities of Daily Living Home Safety Awareness Home Safety Comments Pt's son and assist with his needs. Medication Management Medication Management Caregiver Administers Money Management Money Management Caregiver Provides Assistance Meal Preparation Meal Preparation Caregiver Provides Assist Health Administrator Health Administrator Caregiver Provides Assist M6 OT- IP Functional Cognition Start: 01/26/24 12:37 Freq: Status: Active Protocol: Document 02/01/24 13:23 [facility] (Rec: 02/01/24 13:45 [facility] [id number]) Cognitive Factors Limiting Selfcare Function Cognitive Ability Level of Alertness Alert Patient Orientation Name,Place,Situation Attention Span Ability Capable of Focused Attention, Capable of Sustained Attention Memory Description Short Term Impaired Cognitive Comments Cognitive Assessment Comments Pt not remembering what OT worked on with pt. Pt will needing step by step commands for safety and mobility needs. M7 OT- IP Mobility and Balance Start: 01/26/24 12:37 Freq: Status: Active Protocol: Document 02/01/24 13:23 [facility] (Rec: 02/01/24 13:45 [facility] [id number]) OT-Transfer Assessment Sit to and From Stand Sit to and from Stand Maximum Assistance,2 Person Assistance Devices Transfer Assistive Devices Gait Belt,Front Wheeled Walker Comments Mobility Comments Pt able to stand with MAX AX 2 to the FWW. Pt heavily leaning back in posterior tilt and wanting to sit back down. Nursing aid came in to assist pt back to bed with the marnie lift. M8 OT- IP Objective Assessments Start: 01/26/24 12:37 Freq: Status: Active Protocol: Document 01/26/24 12:38 [facility] (Rec: 01/26/24 12:50 [facility] [id number]) OT Gross Range of Motion Upper Extremity Range of Motion Assessment Left Impaired OT Strength Upper Extremity Strength Assessment Left Impaired Comments Strength Comments LUE 3-/5 M9 OT- IP Assessment and Plan Start: 01/26/24 12:37 Freq: Status: Active Protocol: Document 02/02/24 15:44 CGR (Rec: 02/02/24 15:55 CGR [id number]) OT Summary Assessment and Plan Potential Rehabilitation Potential Good Analytic Complexity at Evaluation Moderate Summary OT Impairments Pain,Strength,Balance, Functional Mobility,Self- Feeding,Grooming,Dressing, Toileting,Bathing,Toilet Transfers,Shower Transfers, Activity Tolerance Progress Towards Goals Slow Progress due to Pain,Slow Progress due to Medical Issues,Slow Progress due to Activity Tolerance Assessment Summary Pt able to do oral care need after set-up at sink. Pt up in chair when OT entered and wants to keep sitting up in the chair. Goals Self-Feeding Goal Standby Assistance Grooming Goal Standby Assistance Dressing Goal Moderate Assistance Toileting Goal Moderate Assistance Bathing Goal Moderate Assistance Toilet Transfer Goal Moderate Assistance Shower Transfer Goal Moderate Assistance Days to Meet Goals 25 Frequency of Treatment Other frequency 5x/week Treatment Plan OT Treatment Plan ADL Training,Functional Mobility,Patient/Family Education,Discharge Planning Discharge Recommendations OT Discharge Recommendations SNF Rehab Transportation Needs at Discharge Wheelchair/Cabulance
[2024-02-02 16:00] VITALS: BP 116/78; PULSE 85; RESP 17; TEMP 36.6; O2SAT 95
[2024-02-02 20:00] VITALS: BP 102/62; PULSE 71; RESP 16; TEMP 36.2; O2SAT 96
[2024-02-02 20:40] VITALS: BP 102/62; PULSE 71
[2024-02-02] MEDS: ATORVASTATIN 20 MG TABLET 10 MG PO (20:40)
[2024-02-03 01:31] VITALS: BP 116/70; PULSE 70; RESP 20; TEMP 36.4; O2SAT 96
[2024-02-03] MEDS: OXYCODONE IR 5 MG TABLET PO (01:34)
[2024-02-03 02:20] LABS: Clostridium Difficile Tox PCR Negative for C. diff (Negative)
[2024-02-03] MEDS: PANTOPRAZOLE DR 40 MG TABLET PO (05:27)
[2024-02-03] MEDS: LOPERAMIDE 2 MG CAPSULE PO ×2 (05:27→08:44)
[2024-02-03 05:44] LABS: Add Manual Diff / Slide Review NO; Basophils Absolute Auto 100 /uL (0-100); Basophils Percent Auto 0.8 % (0-2); Eosinophils Absolute Auto 200 /uL (0-450); Hematocrit 38.9 % (41-53); Hemoglobin 12.6 g/dL (13.5-17.5); Lymphocytes Absolute Auto 1800 /uL (1100-4500); Lymphocytes Percent Auto 26.9 % (25-40); Mean Corpuscular HGB Conc 32.5 % (30-36); Mean Corpuscular Hemoglobin 27.7 PG (26-34); Mean Corpuscular Volume 85.3 fL (80-100); Monocytes Absolute Auto 600 /uL (0-900); Monocytes Percent Auto 9.7 % (3-14); Neutrophils Absolute Auto 3900 /uL (1500-7000); Neutrophils Percent Auto 59.6 % (50-75); Platelet Count 170 X10^3/uL (150-400); Red Blood Cell Count 4.56 X10^6/uL (4.5-5.9); Red Cell Distribution Width 16.8 % (11.6-14.8); White Blood Cell Count 6.6 X10^3/uL (4.5-11.0)
[2024-02-03 06:00] LABS: Alanine Aminotransferase 27 IU/L (<50); Albumin 3.2 g/dL (3.5-5.0); Albumin Globulin Ratio 1.3 (1.0-2.8); Alkaline Phosphatase 106 U/L (38-126); Aspartate Aminotransferase 23 IU/L (17-59); BUN Creatinine Ratio 30.9 (6-22); Bilirubin Total 0.5 mg/dL (0.2-1.3); Blood Urea Nitrogen 25 mg/dL (9-20); C-Reactive Protein Quant 0.5 mg/dL (<1.0); Calcium 9.3 mg/dL (8.4-10.2); Carbon Dioxide 27 mmol/L (22-32); Chloride 106 mmol/L (98-107); Estimated Glomerular Filt Rate > 60 mL/min (>60); Globulin 2.5 g/dL (1.7-4.1); Glucose 98 mg/dL (80-110); HEMOLYSIS < 15 (0-50); Potassium 4.4 mmol/L (3.4-5.1); Sodium 136 mmol/L (137-145); Total Protein 5.7 g/dL (6.3-8.2)
--- NOTE | 2024-02-03 06:51 | PM.DS.1 ---
History of Present Illness History of Present Illness Date Patient Seen: 02/03/24 Time Patient Seen: 06:52 Chief complaint: INPT Narrative: Operative Date/Time/Diagnoses Date of procedure: 01/25/24 Time of procedure: 15:09 Pre-op diagnosis: Left leg abscess Post-op diagnosis: same Procedure & Clinicians Procedure: 1. I&D left leg abscess, deep CPT code 99957 2. Arthrocentesis knee joint left CPT code 73180 +59--separate site Same procedure as scheduled: Yes Indications: The patient is a 68-year-old male with a history of a left knee replacement about 8-10 years ago in [place] that has a history of atrial fibrillation complicated by multiple strokes on chronic anticoagulation with Eliquis 5 mg daily. He has a history of a left lower extremity calf abscess in May of 2023 he was hospitalized at [facility] and had an I and D of this region. At that time he had an arthrocentesis of the left knee joint that was negative for infection. He ended up being transferred to [facility] after an acute stroke and has been mostly wheelchair bound. He presents to me today with a new medial knee abscess and increasing pain. Per report this has been going on for about 2 months. He has been on and off oral antibiotics with his primary care doctor. He has a left knee abscess concern for prosthetic infection as well. He is indicated for formal I and D of the abscess and aspiration of the knee joint possible washout of the knee joint. He will require inpatient admission and IV antibiotics. His medical history is further complicated by an implantable defibrillator and chronic anticoagulation history of strokes. Discussed if he was found to have an infection in the knee prosthetic he may need additional treatment with washouts or prosthesis removal or chronic suppression. The risks and benefits of the procedure have been discussed with the patient and given the opportunity to ask questions. The risks of surgery include but are not limited to infection, malunion, nonunion, persistence of pain, damage to nerves and blood vessels, posttraumatic arthritis, DVT, PE, coardiopulmonary complications and . The patient expressed a thorough understanding of the risks and benefits of surgery and has elected to proceed. Consent was signed/ Surgeon: Chica Whitfield Click Yes if Unassisted: Yes Anesthesia Type: General and Local Operative Notes Findings: Left lower extremity soft tissue abscess medial and inferior to knee joint area of proximal tibia medial to previous TKA incision. Fluctuance. Left knee joint aspiration Closure Type: primary Specimen(s): other (Abscess contents sent for culture pathology, bacterial PCR. Left knee joint arthrocentesis fluid sent for culture, bacterial PCR) Prosthetic devices, grafts, tissues, transplants, or devices: None Tourniquet time (min): 18 Discharge Providers Provider Date of admission: 01/25/24 12:30 Discharge Date: 02/03/24 Primary care physician: Natasha Carroll MD Consults: 01/25/24 10:23 Consult to Anesthesiology Routine Comment: Consulting Provider: Anesthesiologist Reason for consultation: Post operative pain managment 01/25/24 16:24 Consult to Discharge Planning Routine Comment: Consult to Occupational Therapy Evaluate & Treat Comment: Physician Instructions: Evaluate and treat Consult to Physical Therapy Evaluate & Treat Comment: Weightbear as tolerated. History of stroke Physician Instructions: Evaluate and Treat 01/25/24 16:27 Consult to Hospitalist Service Routine Comment: Consulting Provider: Yimi Madrid Reason for consultation: AFib history of stroke hemiparesis. Leg abscess Has provider been notified: Yes 01/25/24 16:28 Consult to Orthopedic Surgery Routine Comment: Consulting Provider: Chica Whitfield Reason for consultation: Left leg soft tissue abscess Has provider been notified: Yes Discharge provider: Oralia Rushing PA-C Summary Hospital Course Discharge Diagnosis: 1) LEFT leg abscess 2) Infection of LEFT prosthetic knee joint 3) Atrial fibrillation w/ h/o stroke Hospital Course: Pt had left [place] approximately 8 [place]. 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 Bilateral tight Achilles. Prior to strokes in May of 2023 stated that he would ambulated with a cane but has been mostly wheelchair balance since his strokes May. He is on chronic Eliquis for anticoagulation. Dr Whitfield discussed that options for chronic infection treatment include attempts at chronic suppression with antibiotics versus attempted curative treatment which would be an explant of the total knee. Discussed this would be a large surgery with morbidity. 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 They discussed if this is not successful then he may still require additional surgery and explant, but attempt at chronic suppression is reasonable for this patient given the severe medical comorbidities and risks. On day of discharge he was eating and voiding without difficulty and his pain was well-controlled with oral medication. Exam Vital Signs (past 8 hours): - 02/03/24 01:31 Temperature 97.6 F Pulse Rate 70 Respiratory Rate 20 Blood Pressure 116/70 Pulse Oximetry 96 Oxygen Flow Rate 0 Oxygen Delivery Method Room Air Oxygen Flow Rate 0 Narrative Exam Narrative: 5/5 strength in hip flexors, quadriceps, hamstrings, PF, DF, EHL on left. Sensation to light touch intact throughout LLE. Calf soft and compressible. Dressing to medial knee CDI. Objective Labs 02/03/24 05:30 02/03/24 05:30 Labs: Laboratory Results - last 24 hr 01/25/24 02/02/24 02/03/24 15:34 08:36 01:20 WBC 6.3 RBC 4.88 Hgb 13.6 Hct 41.6 MCV 85.2 MCH 27.9 MCHC 32.7 RDW 16.5 H Plt Count 183 Neut % (Auto) Lymph % (Auto) Conway % (Auto) Eos % (Auto) Baso % (Auto) Neut # (Auto) Lymph # (Auto) Conway # (Auto) Eos # (Auto) Baso # (Auto) Sodium 139 Potassium 4.1 Chloride 106 Carbon Dioxide 27 BUN 28 H Creatinine 0.86 Estimated GFR > 60 BUN/Creatinine Ratio 32.6 H Glucose 105 Calcium 9.3 Total Bilirubin 0.6 AST 28 ALT 35 Alkaline Phosphatase 118 C-Reactive Protein Total Protein 6.6 Albumin 3.7 Globulin 2.9 Albumin/Globulin Ratio 1.3 C. difficile Tox (PCR) Negative for c. diff Bacterial Detect (PCR) See scanned report 02/03/24 05:30 WBC 6.6 RBC 4.56 Hgb 12.6 L Hct 38.9 L MCV 85.3 MCH 27.7 MCHC 32.5 RDW 16.8 H Plt Count 170 Neut % (Auto) 59.6 Lymph % (Auto) 26.9 Conway % (Auto) 9.7 Eos % (Auto) 3.0 Baso % (Auto) 0.8 Neut # (Auto) 3900 Lymph # (Auto) 1800 Conway # (Auto) 600 Eos # (Auto) 200 Baso # (Auto) 100 Sodium 136 L Potassium 4.4 Chloride 106 Carbon Dioxide 27 BUN 25 H Creatinine 0.81 Estimated GFR > 60 BUN/Creatinine Ratio 30.9 H Glucose 98 Calcium 9.3 Total Bilirubin 0.5 AST 23 ALT 27 Alkaline Phosphatase 106 C-Reactive Protein 0.5 Total Protein 5.7 L Albumin 3.2 L Globulin 2.5 Albumin/Globulin Ratio 1.3 C. 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) Left inguinal hernia Chronic kidney disease (CKD) stage G3a/A1, moderately decreased glomerular filtration rate (GFR) between 45-59 mL/min/1.73 square meter and albuminuria creatinine ratio less than 30 mg/g Atrial fibrillation Surgical History H/O total knee replacement H/O left inguinal hernia repair History of cholecystectomy H/O gastric bypass Family History Family/Other Loud snoring Dementia Father Loud snoring Obesity Hypertension Heart disease Mother Loud snoring Obesity Hypertension Depression Anxiety Family/Other Hypertension Depression Social History household members: spouse and children Smoking Status: Never smoker alcohol intake: never Discharge Assessment & Plan Assessment and Plan Assessment: 1) LEFT leg abscess 2) Infection of LEFT prosthetic knee joint 3) Atrial fibrillation w/ h/o stroke Plan of Treatment: 1) He has a follow up w/ Dr Whitfield scheduled next week for a wound check and suture removal. 2) He had a PICC line placed on 01/31/2024. ID at [facility] has been consulted and he has an appt as an outpatient on 02/13/2024. Continue ceftriaxone 2g daily x 6 weeks. ID recommends CBC, CMP, CRP, and ESR every Tuesday and , with results faxed to [phone]. 3) Continue Eliquis 5mg BID. 4) SNF placement today. WBAT. Discharge Plan Discharge Plan Patient Disposition: SNF Transfer to: [facility] Discharge orders & Medications Prescriptions: New acetaminophen 325 mg Tablet 975 mg PO Q6H PRN (Reason: Fever/Mild Pain (1-3)) Qty: 90 0RF ceftriaxone 2 gram Recon Soln 2,000 mg IV Q24H oxycodone 5 mg Tablet 5 mg PO Q4-6H PRN (Reason: Pain, Moderate (4-6)) Qty: 30 0RF Continued atorvastatin 10 mg tablet 10 mg PO DAILY pantoprazole 40 MG tablet,delayed release (DR/EC) 40 mg PO QDAY Qty: 0 metoprolol succinate 50 mg tablet extended release 24 hr 100 mg PO DAILY Eliquis 5 mg tablet 5 mg PO BID diltiazem HCl 180 mg capsule,extended release 24hr 180 mg PO DAILY cetirizine 10 mg tablet 10 mg PO DAILY nystatin 100,000 unit/gram cream 1 applic topical BID nitroglycerin 0.4 mg tablet, sublingual 0.4 mg sublingual Q5M PRN (Reason: Chest Pain) Rx Instructions: do not exceed 3 doses per episode Follow up/Referrals: Jossie Trent MD [Non-Staff] - 02/13/24 11:00 am ([facility] Infect[facility] Disease) Chica Whitfield MD [Physician] - 02/07/24 9:40 am ([facility] in [place]) Natasha Carroll MD [Primary Care Provider] - Other Ambulatory Orders: Referral to: (Schedule) Timeframe: 1 Week Location: Determined by Patient Ordered By: Aaron Lunsford Diet/Activity/Treatments Diet: Diet as Tolerated Activity: Weightbearing as tolerated Skin/Wound/Dressing Care Dressing: May remove and replace with clean, dry gauze. No bathing or otherwise soaking incision. Do not apply any creams, lotions, or ointments to incision. Special Rehabilitation Services Reason for rehabilitation: Post-operative therapy and Therapy following stroke Rehab type: Physical therapy and Occupational therapy Visit Report/Discharge Packet Instructions: DI for Prescription Opioid Use Stand Alone Forms: Patient Portal/API, Surgery Discharge Discharge Data Primary Care Provider: Natasha Carroll VTE Deep Vein Thrombosis/Pulmonary Embolism Present on Admission: No
[2024-02-03 08:00] VITALS: BP 105/61; PULSE 73; RESP 15; TEMP 35.9; O2SAT 96
[2024-02-03] MEDS: APIXABAN 5 MG TABLET PO (08:43)
[2024-02-03] MEDS: dilTIAZem CD 180 MG CAP PO (08:44)
[2024-02-03 08:46] VITALS: BP 105/61; PULSE 73
[2024-02-03] MEDS: LORATADINE 10 MG TABLET PO (08:46)
[2024-02-03] MEDS: METOPROLOL ER 50 MG TABLET 100 MG PO (08:46)
[2024-02-03] MEDS: cefTRIAXone 2,000 MG in SODIUM CHLORIDE 0.9% 100 ML 200 MG IV (09:44)
[2024-02-03] MEDS: SODIUM CHLORIDE 0.9% FLUSH 10 ML IV (09:44)
--- NOTE | 2024-02-03 11:43 | CM.DPNOTE ---
DC Note Discharge to [facility] today; wheelchair transport arranged for picker at 1330. Patient and family remain agreeable. Emailed PASRR, signed med list, Rx and DC report to Anita lau . Updated RN and provided nurse report number. JW
--- NOTE | 2024-02-03 11:57 | PT-IP ANOTE ---
Pt refused PT this morning. He reports pain in his stomach and is about to d/c to SNF, he would like to rest.
--- NOTE | 2024-02-03 12:02 | OT.IPNOTE ---
Attempted to see pt x2. Initially pt getting cleaned up with nursing. On second attempt, pt declined. Pt is planned for discharge to SNF today.
--- NOTE | 2024-02-03 14:24 | PM.PN.1 ---
Subjective Subjective Interval history: S: He was doing well today. Minimal pain. No difficulty with breathing. He was transferring to halfway facility today. Exam Vital Signs (past 8 hours): - 02/03/24 08:00 02/03/24 08:46 Temperature 96.7 F L Pulse Rate 73 73 Respiratory Rate 15 Blood Pressure 105/61 105/61 Pulse Oximetry 96 Oxygen Flow Rate 0 Oxygen Delivery Method Room Air Oxygen Flow Rate 0 Narrative Exam Narrative: NAD, alert and oriented. Fluent speech. Lungs are clear, normal rate and effort. Heart is regular, no murmur gallop or rub. Abdomen is soft, non distended. Extremities are free of edema. Objective Labs 02/03/24 05:30 02/03/24 05:30 Labs: Laboratory Results - last 24 hr 02/03/24 02/03/24 01:20 05:30 WBC 6.6 RBC 4.56 Hgb 12.6 L Hct 38.9 L MCV 85.3 MCH 27.7 MCHC 32.5 RDW 16.8 H Plt Count 170 Neut % (Auto) 59.6 Lymph % (Auto) 26.9 Wharton % (Auto) 9.7 Eos % (Auto) 3.0 Baso % (Auto) 0.8 Neut # (Auto) 3900 Lymph # (Auto) 1800 [place]arton # (Auto) 600 Eos # (Auto) 200 Baso # (Auto) 100 Sodium 136 L Potassium 4.4 Chloride 106 Carbon Dioxide 27 BUN 25 H Creatinine 0.81 Estimated GFR > 60 BUN/Creatinine Ratio 30.9 H Glucose 98 Calcium 9.3 Total Bilirubin 0.5 AST 23 ALT 27 Alkaline Phosphatase 106 C-Reactive Protein 0.5 Total Protein 5.7 L Albumin 3.2 L Globulin 2.5 Albumin/Globulin Ratio 1.3 C. difficile Tox (PCR) Negative for c. 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) Left inguinal hernia Chronic kidney disease (CKD) stage G3a/A1, moderately decreased glomerular filtration rate (GFR) between 45-59 mL/min/1.73 square meter and albuminuria creatinine ratio less than 30 mg/g Atrial fibrillation Surgical History H/O total knee replacement H/O left inguinal hernia repair History of cholecystectomy H/O gastric bypass Family History Family/Other Loud snoring Dementia Father Loud snoring Obesity Hypertension Heart disease Mother Loud snoring Obesity Hypertension Depression Anxiety Family/Other Hypertension Depression Social History household members: spouse and children Smoking Status: Never smoker alcohol intake: never Assessment & Plan Assessment & Plan narrative: 1. Left lateral leg cellulitis and abscess due to strep mitis with possible hardware infection. present on admission and active. -ceftriaxone 2g daily for at least 6 weeks per ID at [facility]. Referral sent on 01/31/24. Has follow up on 02/13/24 at 11am. -status post incision and drainage on January 24. -Recommends CBC, CMP, CRP, and ESR every Tuesday and , with results faxed to [phone]. Last done today, 01/31 and labs are unremarkable. Ordered for next set on discharge day planned for 02/02. -ordered PICC line. 2. Chronic diastolic heart failure, present on admission and stable. 3. Dysphagia with regurgitation, chronic and active. 4. A-fib, present on admission and stable. -continue apixiban 7. Hyperlipidemia. Present on admission and active. 8. GERD. Present on admission and active. - Continue pantoprazole 9. BPH. Present on admission and active. -Continue Flomax 10. Constipation. Present on admission and resolved. Assessment: All chronic medical problems are currently compensated. No change to medications is recommended at this time. Medicine is signing off, patient was transferring to halfway facility today. Time-Based Coding :: [TOTAL MINUTES] spent with patient and on the chart (including review of chart, obtaining history, exam, reviewing outside data, placing orders, documenting exam and treatment plan, and counseling patient) on [DATE]. Quality VTE Deep Vein Thrombosis/Pulmonary Embolism Present on Admission: No
--- NOTE | 2024-02-03 17:51 | PC.NURSE ---
Patient is A&OX3, difficulty at times word finding -mild aphasia. VSS, afebrile on RA. He is cleared for discharge to [facility] this afternoon with PICC Line. Son arrived at bedside bringing belongings for patient including his personal w/ch. He verbalizes understanding of discharge and discharge plan to SNF. Report called to Christina at [facility]. Patient is transported at 1450 this afternoon, with all of his personal belongings.
== END 2024-02-03 14:50 | DRG 982 ==
PROVIDERS: Hospitalist; Internal Medicine; Admitting Provider Orthopaedic Surgery Foot and Ankle Surgery; PCP Internal Medicine; Referring Provider Orthopaedic Surgery Foot and Ankle Surgery; Visit Provider Orthopaedic Surgery Foot and Ankle Surgery
PROC: 0LBR0ZZ Excision of Left Knee Tendon, Open Approach (ICD-10-PCS; principal; 2024-01-25 14:00)
DX: L02.416 Cutaneous abscess of left lower limb (principal); I50.32 Chronic diastolic (congestive) heart failure; T84.54XA Infection and inflammatory reaction due to internal left knee prosthesis, initial encounter; M25.562 Pain in left knee; G89.29 Other chronic pain; I48.91 Unspecified atrial fibrillation; E78.5 Hyperlipidemia, unspecified; K21.9 Gastro-esophageal reflux disease without esophagitis; N40.0 Benign prostatic hyperplasia without lower urinary tract symptoms; K59.00 Constipation, unspecified; I69.344 Monoplegia of lower limb following cerebral infarction affecting left non-dominant side; I69.391 Dysphagia following cerebral infarction; I69.341 Monoplegia of lower limb following cerebral infarction affecting right dominant side; B95.4 Other streptococcus as the cause of diseases classified elsewhere; Y79.2 Prosthetic and other implants, materials and accessory orthopedic devices associated with adverse incidents; I11.0 Hypertensive heart disease with heart failure; Z79.01 Long term (current) use of anticoagulants; Z95.0 Presence of cardiac pacemaker; Z99.3 Dependence on wheelchair
CPT/HCPCS: 36415; 36569; 80048; 80053; 80202; 82565; 85025; 85027; 85651; 86140; 87070; 87075; 87077; 87176; 87186; 87205; 87493; 87801; 97162; 97166; 97530; 97535; 99406; J0134; J0171; J0696; J1100; J1642; J2405; J2704; J3010

== ENCOUNTER 2024-03-13 06:21 | Inpatient (IN) | payer MEDICARE, SELFPAY ==
[2024-01-25 17:16] VITALS: BMI 36.6
[2024-03-01 10:29] VITALS: BMI 36.6
[2024-03-13] VITALS (11 sets, daily range): BP systolic 102–127; BP diastolic 50–74; PULSE 66–94; RESP 14–18; TEMP 36.2–36.9; O2SAT 95–100; BMI 36.6
--- NOTE | 2024-03-13 07:45 | PM.PREOP ---
Pre-operative Note Interval Note History & Physical reviewed/Exam performed by Physician: Yes Changes to H&P: No
[2024-03-13] MEDS: LACTATED RINGERS 1,000 ML 42 ML IV ×2 (07:48→11:08)
[2024-03-13] MEDS: CEFAZOLIN 2 GM/100 ML PREMIX 100 ML IV ×2 (08:01→11:10)
[2024-03-13] MEDS: TRANEXAMIC ACID 1,000 MG in SODIUM CHLORIDE 0.9% 100 ML 200 MG IV ×2 (08:04→10:54)
--- NOTE | 2024-03-13 08:47 | SUR.OPER ---
Supine on padded OR bed. Pillow under head, arms secured on padded armboards <90 degree abduction. Safety belt across torso. Non-operative leg secured with tape over blanket over lower leg. Operative leg secured in Vaughn positioner. Foam padded brace at thigh of operative leg.
[2024-03-13] MEDS: ACETAMINOPHEN IV 1,000 MG/100 ML VIAL 400 MG IV (08:51)
[2024-03-13] MEDS: cefTRIAXone 1,000 MG in SODIUM CHLORIDE 0.9% 100 ML 200 MG IV (08:57)
[2024-03-13] MEDS: TOBRAMYCIN 1.2 GM VIAL 0.4 GM INTRA-ARTI (09:10)
[2024-03-13] MEDS: VANCOMYCIN 1,000 MG VIAL 1000 MG TOP (09:11)
--- NOTE | 2024-03-13 09:23 | DI.RAD.S_ITS ---
PROCEDURE: XR KNEE LT 1TO2V INDICATIONS: tka TECHNIQUE: 2 view(s) of the knee acquired. COMPARISON: [facility], CR, XR KNEE LT 3V, 05/29/2023, 19:16. FINDINGS: Bones: Patient is status post left total knee arthroplasty revision with extensive postsurgical changes.. Hardware components are in expected positions. Visualized bony structures are intact. Soft tissues: Overlying postoperative changes are noted. IMPRESSION: Expected postoperative changes of a knee arthroplasty revision. Dictated by: Simone Keen M.D. on 03/13/2024 at 13:49 Approved by: Simone Keen M.D. on 03/13/2024 at 13:50
[2024-03-13] MEDS: ROPIVACAINE/EPI/CLONIDINE/KET 50 ML SYRINGE INJ (11:09)
[2024-03-13] MEDS: ALBUMIN HUMAN 12.5 GM/250 ML VIAL IV (11:38)
[2024-03-13] MEDS: LACTATED RINGERS 1,000 ML 100 ML IV (15:05)
[2024-03-13] MEDS: cefTRIAXone 2,000 MG in SODIUM CHLORIDE 0.9% 100 ML 200 MG IV (15:09)
--- NOTE | 2024-03-13 15:39 | P.CONS_ITS ---
History of Present Illness Consult details Chief complaint: INPT Narrative: 69 year old male with PMH of CVA (in the setting of held blood thinner due to complex admission with surgical management for leg abscess), atrial fibrillation on Pradaxa, PPM placement for previous bradycardia, hypertension, hyperlipidem ia, COPD, GERD, BPH and presumed infected left knee prosthesis with strep mitis frpm the end of Jan. this year. He has been on ceftriaxone since he left the hospital. He states he only has 4 days left at [facility] but has been there since his discharge from here with his leg abscess and infected hardware. I received a call from his infectious disease provider yesterday, requesting additional daptomycin in addition to continued ceftriaxone once admitted. She also requested repeat labs including CK. He underwent removal of his hardware today with orthopedics with his left leg permanently straightened. He denies any complaints today, though it does take some time with his word finding difficulties. His recently . His surrogate maker is his daughter and son. Meds Home Medications and Allergies Home Medications Medication Instructions Recorded Confirmed Type pantoprazole 40 mg tablet,delayed 40 mg PO QDAY ##0 10/12/16 03/13/24 History release atorvastatin 10 mg tablet 10 mg PO DAILY 01/31/23 03/13/24 History apixaban 5 mg tablet (Eliquis) 5 mg PO BID 01/25/24 03/13/24 History cetirizine 10 mg tablet 10 mg PO DAILY 01/25/24 03/13/24 History diltiazem HCl 180 mg 180 mg PO DAILY 01/25/24 03/13/24 History capsule,extended release 24 hr nystatin 100,000 unit/gram topical 1 applic topical BID 01/25/24 03/13/24 History cream acetaminophen 325 mg tablet 975 mg (3 x 325 mg) PO Q6H PRN 02/03/24 03/13/24 Rx Fever/Mild Pain (1-3) #90 tabs oxycodone 5 mg tablet 5 mg PO Q4-6H PRN Pain, Moderate 02/03/24 03/13/24 Rx (4-6) #30 tabs ceftriaxone 2 gram intravenous 2 g IV DAILY 03/13/24 03/13/24 History solution cyclobenzaprine 10 mg tablet 10 mg PO 3XD PRN msk pain 03/13/24 03/13/24 History melatonin 3 mg tablet 3 mg PO BEDTIME 03/13/24 03/13/24 History metoprolol succinate 100 mg 100 mg PO DAILY 03/13/24 03/13/24 History tablet,extended release 24 hr Allergies Allergy/AdvReac Type Severity Reaction Status Date / Time tramadol Allergy Intermediate shakey Verified 01/25/24 13:06 NSAIDS (Non-Steroidal AdvReac Intermediate pt is not Verified 01/25/24 13:06 Anti-Inflamma supposed [NSAIDS (NON-STEROIDAL to take ANTI-INFLAMMA] them Review of Systems Review of Systems Narrative: All other systems reviewed with the patient and are negative unless otherwise stated. Exam Vital Signs (past 8 hours): - 03/13/24 13:15 03/13/24 13:20 03/13/24 13:25 Temperature 98.4 F 98.2 F 98.4 F Pulse Rate 84 66 74 Respiratory Rate 16 14 17 Blood Pressure 108/67 127/74 119/67 Pulse Oximetry 96 96 97 Oxygen Delivery Method Room Air Room Air Room Air Oxygen Flow Rate 03/13/24 13:34 03/13/24 13:50 03/13/24 14:20 Temperature 97.9 F 97.2 F L 97.3 F L Pulse Rate 89 94 H 80 Respiratory Rate 17 16 17 Blood Pressure 116/64 125/63 109/65 Pulse Oximetry 96 97 96 Oxygen Delivery Method Room Air Oxygen Flow Rate 0 0 03/13/24 14:50 Temperature 97.3 F L Pulse Rate 93 H Respiratory Rate 16 Blood Pressure 113/56 L Pulse Oximetry 98 Oxygen Delivery Method Oxygen Flow Rate 0 Oxygen Delivery Method Room Air Oxygen Flow Rate 0 Narrative Exam Narrative: NAD, alert and oriented. Fluent speech. Lungs are clear, normal rate and effort. Heart is regular, no murmur gallop or rub. Abdomen is soft, non distended. Extremities are free of edema. 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) Left inguinal hernia Chronic kidney disease (CKD) stage G3a/A1, moderately decreased glomerular filtration rate (GFR) between 45-59 mL/min/1.73 square meter and albuminuria creatinine ratio less than 30 mg/g Atrial fibrillation Surgical History (Updated 03/01/24 @ 10:27 by Solange Mcdonald RN) S/P PICC central line placement (01/31/24) H/O Spinal surgery Hx of knee surgery (01/25/24) H/O total knee replacement H/O left inguinal hernia repair (03/20/20) History of cholecystectomy H/O gastric bypass Family History Family/Other Loud snoring Dementia Father Loud snoring Obesity Hypertension Heart disease Mother Loud snoring Obesity Hypertension Depression Anxiety Family/Other Hypertension Depression Social History household members: spouse and children Tobacco & Substance Use Smoking Status: Never smoker alcohol intake: never Assessment & Plan Assessment & Plan narrative: 1. Left infected knee hardware with strep mitis, s/p removal of hardware 03/13 -continue ceftriaxone 2g every 24 hours per infectious disease, and add daptomycin 8 mg / kg per infectious disease provider Dr. Trent. Discussed with her today. -check cbc, cmp, CK, and esr/crp 2. Chronic diastolic heart failure, present on admission and stable. - continue home medications - will discontinue IV fluids ordered. 3. Dysphagia with regurgitation, chronic . 4. persistent A-fib, present on admission and stable. -continue apixiban per orthopedics, to resume on 03/15/2023 -continue home metoprolol 100 mg daily -hold any NSAIDs -recommend sending reconciled medication list to [facility] laboratory assistant at his next visit as meds at [facility] are different than currently on [facility] laboratory assistant notes. 5. Hyperlipidemia. Present on admission and active. 6. GERD. Present on admission and active. - Continue pantoprazole 7. BPH. Present on admission and active. -Continue Flomax 8. CVA with residual deficits. - wheel chair dependent, has communication deficits and word finding difficulties at baseline. Medicine will continue to follow this patient during his stay here. Code: Full, surrogate is patient's Son, and daughter. also note patient's spouse recently as well. DVT: per primary team I have utilized all available immediate resources to obtain, update, or review the patient's current medications. Additional history obtained via discussions with the infectious disease provider and orthopedic surgeon . These discussions contributed to the creation of the above assessment and plan. I have reviewed patient's presenting documentation, labs, and imaging personally. Time-Based Coding :: [TOTAL MINUTES] spent with patient and on the chart (including review of chart, obtaining history, exam, reviewing outside data, placing orders, documenting exam and treatment plan, and counseling patient) on [DATE].
--- NOTE | 2024-03-13 15:46 | PT-IP ANOTE ---
PT eval order received. EMR reviewed but currently still no operative note in EMR. will defer PT eval at this time. will await for operative notes for PT guidelines/precautions and weight bearing status.
[2024-03-13] MEDS: DAPTOMYCIN IV (17:34)
[2024-03-13] MEDS: SODIUM CHLORIDE 0.9% IV (17:34)
[2024-03-13] MEDS: OXYCODONE IR 10 MG TABLET PO (18:13)
--- NOTE | 2024-03-13 18:30 | P.OP_ITS ---
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 Removal of left knee prosthesis with insertion of static spacer (26327) 2. Intraosseous administration of ceftriaxone (24763) 3. Insertion of biodegradable calcium sulfate antibiotic beads with vancomycin and tobramycin (59827) Same procedure as scheduled: Yes Surgeon: Farhan Garcia Technician Anatomic Pathology: Oralia Rushing Anesthesia Type: General and Local Operative Notes Estimated Blood Loss (mL): 300 Procedure in detail: Explantation of left total knee arthroplasty with placement of static knee spacer made from 2 tibial nails with interlocking screws and antibiotic impregnated polymethylmethacrylate using two setups - one for implant removal and one for static spacer placement Implants: * 2 Tri Gen Candor Nails, both 11.5 mm in diameter with the Manuel curves cut off, connected by 2 interlocking screws (50 mm and 45 mm) Procedure Summary: This 69-year-old male patient has been dealing with abscesses in his left lower extremity for the last 9 months. He has undergone 2 prior debridements, the details of which are included in screen shots below. His most recent debridement clearly communicated with the knee prosthesis which had been placed remotely in [place] and I was asked to manage the patient given his draining sinus and periprosthetic joint infection. I had multiple conversations with multiple different members of his family as well as with the patient himself regarding management options. I discussed with them that his diagnosis of a periprosthetic joint infection is a very severe medical condition which carries a 5 year mortality rate of 25%, a mortality rate similar to multiple forms of cancer. I discussed with them that we could treat his periprosthetic joint infection nonoperatively but that this would involve continued persistent drainage from his knee joint. Given the multiple abscesses that he had formed in the region as well these would have likely continued and he could have required further debridements of local abscesses. My discussions with the patient were unfortunately limited by his stroke as he has significant word- finding difficulties and struggles to communicate effectively although I do perceive that he has full comprehension of what is being spoken to him. In preparation for this surgery I therefore had multiple conversations with various family members of his. Today when I met him in the preoperative holding area I found that the draining sinus which had developed over the medial aspect of his knee was clearly leading to compromise of the surrounding skin and was at extremely high risk for wound breakdown. Additionally found that his motion was essentially non-existent once he was asleep and able to be examined under anesthesia. I could move the knee from approximately 10? to approximately 25?. Given this complete lack of function in the knee, and his extremely limited functional rehabilitation potential given his stroke and spasticity and movement deficits affecting this left side, I discussed with 2 of his family members that I felt it would be best to transition from a articulating spacer to a static spacer. I recommended a static spacer because I felt that an articulating spacer, which I had initially planned and brought all of the implants into the room for, would not improve his functional status given his complete lack of motion preoperatively which could not be expected to improve postoperatively. Additionally he is extremely high risk of needing a medial gastrocnemius flap for coverage of the compromised skin in the vicinity of the draining sinus which had been debrided last month where the surrounding skin was dysvascular. I felt that if I ellipsed that area and iatrogenically shortened the leg during placement of a static spacer it could improve my ability to close the wound. The patient's family stated ?it is much more important to us to get the wound closed than to preserve his ability to bend his knee.? I therefore adjusted my initial plan, explained to the patient's total knee arthroplasty, obtained numerous cultures, and placed a static spacer formulated from 2 tibial nails which I cut the Manuel curves off of, 2 interlocking screws which connected the nails in the knee joint, vancomycin and tobramycin calcium sulfate antibiotic pellets which were placed up the canals and into the gutters, and vancomycin and gentamicin impregnated PMMA cement which was packed into the canals of the tibia and the femur. The knee was positioned in very slight flexion to optimize positioning. Postoperative radiographs indicate that the final resting position of the knee was 12? of flexion. Pertinent Past Surgical History Pertinent Past Medical History 1. COPD 2. Atrial fibrillation on Eliquis 3. Chronic opioids, was prescribed Percocet 10 mg every 6 hours from [facility] pain clinic as of last fall. This has fluctuated over time throughout his surgical course this year 4. BMI 37. At one point weighed as much as 430 pounds, now down to 255 pounds after gastric bypass as well as his multiple medical issues over the past year 5. Aortic stenosis 6. BPH 7. CKD 8. Cerebrovascular accident earlier this year Procedure in Detail: The patient was brought back to the operating room where anesthesia was induced. The patient was transferred to the operating table and all bony prominences were padded. The operative site was prepped and draped in the usual sterile fashion. A second prep stick was utilized following drape placement. The incision was marked corresponding to the medial aspect of the tibial tubercle and the patella. Ioban was wrapped circumferentially around the knee. Prior to incision, tranexamic acid and cefazolin were administered. Templating images were displayed. A timeout procedure was performed verifying the patient?s identity, medical comorbidities, allergies, relevant medications, anesthesia type and the surgical plan. All present were in agreement. The assistance of a physician printer's assistant was required for positioning, room setup, soft tissue retraction and wound closure. Without this assistance, the procedure would have been significantly more challenging and time consuming.?? The tourniquet was inflated prior to incision. I placed a intraosseous needle into the tibia and infiltrated 30 mL of diluted ceftriaxone into the tibia to allow for venous backflow into all of the soft tissues of the knee because of the tourniquet. I made an anterior incision over the knee, dissected through the subcutaneous tissues and identified the lateral border of the VMO. Medial and lateral soft tissue flaps were developed. A medial parapatellar arthrotomy was performed ensuring that adequate capsular tissue would remain for closure at the conclusion of the procedure. I dissected proximally and performed a quadriceps snip to allow for more soft tissue mobilization. Medially I performed an aggressive medial peel around the medial aspect of the tibia. I inserted a retractor along the lateral joint line and removed retropatellar scar. I sent this for culture. This was the 1st of many cultures which would be sent during the procedure. Brought the knee into full extension and everted the patella. I dissected scar from around the patellar button. I sent this for culture. I removed the patellar button using a saw. I used a TPS bur to remove all of the underlying cement to limit any bioburden from residual cement. I dissected further scar from around the area. Was then able to flex the knee to begin the component removal process. I noted that the femur was grossly loose so I removed the polyethylene insert with an osteotome and found that this freed up the femur enough that I was able to remove it by simply tapping on the anterior flange. I then hyperflexed and externally rotated the tibia and used a TPS saw to open up the bone cement interface, then used a single sided reciprocating saw to extend around posteriorly around the posterior medial corner to the posterolateral corner. I also used the single sided reciprocating saw to cut away at the cement bone interface anterolaterally in front of the patellar tendon. Once the tibial base plate had been freed up used an osteotome to further free it up and then tapped it out. The tibia had been well fixed and there was an area of abscess on the medial side where there was purulent fluid underneath the base plate. I obtained some of this and sent it for culture. I also sent the membrane which had formed underneath the femoral component between the femoral component and the cement and sent that for culture. With all components removed I then moved onto bony preparation for the eventual static spacer. I used rigid reamers sequentially from 9 mm up to 17 mm to open up the canal and then debride the intramedullary canal. I used this in a reciprocating fashion going between the tibia in the femur. I also used pulse irrigation to irrigate the canal. Once I had achieved canal fill with the rigid reamers used the cutting jigs for the distal femur to perform a resection of the bone there. This was performed using the Valentina [id number] cutting jig from the revision set. I initially cut 5 mm off of both the medial and lateral sides but found that this did not cut significant bone medially so I performed a 10 mm cut off both sides to ensure that I would have a good bony interface on which the cement could rest. In similar fashion I moved to the tibia and used the cutting jig there to perform a 5 mm resection off of the joint line in the tibia to achieve a good bony surface for eventual implantation with the static spacer. Further debridement was performed at this point in time. I used Una clamps to gain hold of the medial and lateral gutters respectively and resected them in their entirety. I sent those for culture. I Debrided bone posteriorly in the knee joint while using a lamina complaint specialist to distract the knee joint while being careful not to disrupt the posterior neurovascular structures in the knee. I then performed sequential irrigation of the knee with normal saline, followed by a 3 minutes soak in a dilute mixture of Betadine and peroxide, followed by another irrigation of the knee including irrigation of the tibial and femoral canals, followed by an additional 3 minutes soak with dilute Betadine and peroxide, followed by a final irrigation. I then turned my attention to the area where the draining sinus from the medial side of the knee had previously been debrided. Excised this in an elliptical fashion so as to allow for soft tissue closure at the conclusion of the procedure. I did excise the majority of the nonvascular appearing skin surrounding the draining sinus. Additionally underneath the draining sinus in the skin was a sinus tract extending down into the knee joint. I excised this in its entirety and sent that for culture. I then provisionally closed the wound using 3-0 nylon sutures in a subcuticular fashion. A lap soaked in Betadine and peroxide was left in the wound and a blue towel and Ioban were placed over the wound to seal it during turnover. In order to limit residual bioburden from working in an infected field we then completely broke down the operating room, removed all the drapes as well as all the instruments from the dirty side, and brought up new instruments as well as re-prepped during, read draping, and donning new surgical gowns. I also marked the floor to remove any debris from the debridement process that remained in the room. Once we had re-prepped and redraped we resumed the procedure on the clean side. Prior to doing any work we removed the provisional sutures and again soaked the wound in a dilute mixture of Betadine and peroxide. I initially worked on the area of the sinus tract medial side of the knee which extended through the medial retinacular tissues down to the knee joint. I closed the hole in the medial retinaculum using barbed running Stratafix and then closed the ellipsed sinus tract in the skin using 2-0 Monocryl and running 3-0 nylon. This was able to close in a tension-free fashion because of the absence of any implants in the knee at that point in time. I opened the to shortest 11.5 mm tibial nails that we had available to us which were 30 cm and 32 cm respectively. I placed these in the femur and tibia respectively and found that the shorter 1 was too long for the tibial side but barely fit on the femoral side. On further inspection I found that the best way to thread 2 screws across both of them would be to use the distal aspect of the nails. This would allow for 2 nails to be inserted in parallel and I would use nail positioning within the canal to allow for slight flexion of the knee during the cement drying process to ensure that the leg was not completely straight. Desiring to use the distal portions of the nail in the knee joint and finding that the nails were too long for the tibia, and that the Manuel curves would be difficult to place up the femoral and tibial canals I elected to cut the Amnuel curves off using a metal cutting bur. I cut these off both of the tibial nails and then inserted them in the femur and tibia respectively. This allowed significantly more mobility for nail positioning. I inserted 2 interlocking screws from medial to lateral aiming posterolaterally to leave the screw heads in a position which would allow for removal in the future should this become necessary. I placed bone wax around the screw threads and into the interlocking holes in the distal aspect of the nails which were not going to be used. Left the screwdrivers attached with threaded locking pins in them to ensure that there would be tracts to the heads of the screws available should that be necessary in the future. I then placed vancomycin and tobramycin impregnated calcium sulfate pellets up the femur and down the tibia in the canals. Two separate batches of vancomycin and gentamicin impregnated cement were prepared and these were packed up the canals to seal the canals around the tibial nails as well as placed loosely in the knee. During this process I had the knee positioned in a on table leg positioner which held it in slight flexion, and had placed bumps under the knee to augment this slight flexion. I packed the cement around the tibial nails and the screws and allowed it to harden. The cement was allowed to dry. I tested the stability of the leg and found that it was robust, not having any movement whatsoever after the cement had dried. I performed a final Betadine and peroxide soak and irrigated all of the soft tissues. A dilute mixture of ketorolac epinephrine clonidine and ropivacaine was infiltrated throughout the soft tissues. The wound was closed using Ethibond proximally in the quad snip and the full extent of the arthrotomy. This was backed up using running Stratafix. 2-0 Monocryl was placed subcuticularly in the skin in interrupted fashion and a running 3-0 nylon suture was placed over that. An incisional wound VAC was formulated by using a wound VAC sponge and Adaptic and this covered both the ellipsed sinus tract as well as the total knee arthroplasty incision. There was a very small skin bridge between the distal extents of those 2 incisions. The wound VAC was inflated and an Vaughn wrap was placed over the top of the wound VAC. Plan for aftercare: * Numerous cultures were sent during today's procedure. Following the conclusion of the procedure I spoke via telephone with Dr. Trent, the patient's infectious disease doctor. She has recommended initially starting with ceftriaxone and daptomycin to be administered through a PICC line which he currently has in place. We will plan to continue using that PICC line as long as it continues to work. She has requested that we keep her apprised of developments regarding his care via fax. Her fax number is [phone] * Eliquis 5 mg twice per day will be utilized for DVT prophylaxis and we will begin this on the morning of March 15 * The patient's mobility is unfortunately essentially non-existent because of his stroke. If he is able to bear any weight on this extremity and do any ambulation he is weight-bearing as tolerated however I do not anticipate that he will make any functional progress with regards to ambulation * I have requested the assistance of the inpatient medical hospitalist team while the patient is in the hospital. Given his extremely poor medical status I consider it a near certainty that he will have some form of medical complication during this admission. It was just a matter of what complication that will be and I greatly appreciate the assistance of our medical colleagues with management of his complex care * Disposition will undoubtedly be to a care home facility as he was residing in one prior to this procedure * We will need the assistance of the case management and social work team to aid with discharge planning given the wound VAC which was placed during today's procedure. This does not need to be changed but just needs to be kept running until he can return for follow up for a wound check and have that removed at that time * My next clinic will be on March 28 and I would like to see him on that day for a wound check
[2024-03-13] MEDS: DOCUSATE 100 MG CAPSULE PO (20:43)
[2024-03-13] MEDS: ACETAMINOPHEN 325 MG TABLET 650 MG PO (20:44)
[2024-03-13] MEDS: ASPIRIN EC 81 MG TABLET PO (20:47)
[2024-03-14] MEDS: ACETAMINOPHEN 325 MG TABLET 650 MG PO ×4 (04:00→20:50)
[2024-03-14] MEDS: OXYCODONE IR 10 MG TABLET PO ×2 (04:00→23:28)
[2024-03-14 06:03] LABS: Hematocrit 35.9 % (41-53); Hemoglobin 11.6 g/dL (13.5-17.5)
[2024-03-14 08:00] VITALS: BP 91/56; PULSE 102; RESP 16; TEMP 36.4; O2SAT 97
--- NOTE | 2024-03-14 08:04 | PT-IP ANOTE ---
PT reviewed chart and op note. Pt with spacer placement left knee after infected joint. WBAT and ambulation orders received. PT questions ROM/immobilizer after spacer and leaves message for surgeon. Will assume no ROM left knee until clarified. Per chart, it is not anticipated that pt will mobilize much.
--- NOTE | 2024-03-14 08:07 | PT-IP ANOTE ---
PT receives communication from surgeon, Dr. Garcia, who states that knee immobilizer is not needed and that pt's knee has contracture and could not move well under anesthesia. He anticipates limited mobility from pt and so no further range or immobilizer restrictions at this time.
[2024-03-14] MEDS: LORATADINE 10 MG TABLET PO (08:34)
[2024-03-14] MEDS: DOCUSATE 100 MG CAPSULE PO ×2 (08:34→20:50)
[2024-03-14] MEDS: PANTOPRAZOLE DR 40 MG TABLET PO (08:34)
[2024-03-14] MEDS: OXYCODONE IR 5 MG TABLET PO ×2 (08:34→19:02)
[2024-03-14] MEDS: ASPIRIN EC 81 MG TABLET PO ×2 (08:34→20:50)
[2024-03-14 08:45] VITALS: BP 98/48; PULSE 89
[2024-03-14] MEDS: METOPROLOL ER 50 MG TABLET PO (08:45)
[2024-03-14 08:54] LABS: Alanine Aminotransferase 16 IU/L (<50); Albumin 3.2 g/dL (3.5-5.0); Albumin Globulin Ratio 1.2 (1.0-2.8); Alkaline Phosphatase 89 U/L (38-126); Aspartate Aminotransferase 44 IU/L (17-59); BUN Creatinine Ratio 31.6 (6-22); Bilirubin Total 0.7 mg/dL (0.2-1.3); Blood Urea Nitrogen 30 mg/dL (9-20); Calcium 9.1 mg/dL (8.4-10.2); Carbon Dioxide 27 mmol/L (22-32); Chloride 103 mmol/L (98-107); Estimated Glomerular Filt Rate > 60 mL/min (>60); Globulin 2.6 g/dL (1.7-4.1); Glucose 140 mg/dL (80-110); HEMOLYSIS 18 (0-50); Potassium 4.9 mmol/L (3.4-5.1); Sodium 135 mmol/L (137-145); Total Protein 5.8 g/dL (6.3-8.2)
[2024-03-14 09:05] LABS: Magnesium 1.9 mg/dL (1.6-2.3)
[2024-03-14 09:09] LABS: C-Reactive Protein Quant 3.9 mg/dL (<1.0); Creatine Kinase 68 U/L (55-170)
[2024-03-14 09:54] LABS: Add Manual Diff / Slide Review NO; Basophils Absolute Auto 0 /uL (0-100); Basophils Percent Auto 0.3 % (0-2); Eosinophils Absolute Auto 0 /uL (0-450); Hematocrit 34.2 % (41-53); Hemoglobin 11.1 g/dL (13.5-17.5); Lymphocytes Absolute Auto 1100 /uL (1100-4500); Lymphocytes Percent Auto 9.4 % (25-40); Mean Corpuscular HGB Conc 32.3 % (30-36); Mean Corpuscular Hemoglobin 27.2 PG (26-34); Mean Corpuscular Volume 84.1 fL (80-100); Monocytes Absolute Auto 1300 /uL (0-900); Monocytes Percent Auto 11.3 % (3-14); Neutrophils Absolute Auto 8900 /uL (1500-7000); Platelet Count 162 X10^3/uL (150-400); Red Blood Cell Count 4.07 X10^6/uL (4.5-5.9); Red Cell Distribution Width 15.3 % (11.6-14.8); White Blood Cell Count 11.2 X10^3/uL (4.5-11.0)
[2024-03-14 10:56] LABS: Erythrocyte Sedimentation Rate 18 MM/HR (0-15)
--- NOTE | 2024-03-14 11:12 | OT.IP.EVAL ---
Current Diagnoses Infection and inflammatory reaction due to internal left knee prosthesis, initial encounter (03/13/24) Surgery Performed Operation Date: 03/13/24 07:45 Actual Procedures p Explantation of left total knee arthroplasty with placement of antibiotic cement spacer(Left) - Farhan Gacria MD Past Medical History (Last Updated 03/01/24 @ 10:26 by Solange Mcdonald, RN) Allergic rhinitis Aortic stenosis Atrial fibrillation BPH w/o urinary obs/LUTS Chronic kidney disease (CKD) stage G3a/A1, moderately decreased glomerular filtration rate (GFR) between 45-59 mL/min/1.73 square meter and albuminuria creatinine ratio less than 30 mg/g Chronic, continuous use of opioids CVA (cerebral vascular accident) (06/10/23) DDD (degenerative disc disease), lumbar Dysphagia Essential hypertension Fatigue due to sleep pattern disturbance GERD (gastroesophageal reflux disease) Hyperlipidemia Iron deficiency anemia following bariatric surgery 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) Normal cardiac ejection fraction (06/03/23) Obesity (BMI 30-39.9) Obstructive sleep apnea, adult Pacemaker (2007) Surgical History (Last Updated 03/01/24 @ 10:27 by Solange Mcdonald, RN) H/O gastric bypass H/O left inguinal hernia repair (03/20/20) H/O Spinal surgery H/O total knee replacement History of cholecystectomy Hx of knee surgery (01/25/24) S/P PICC central line placement (01/31/24) Occupational Therapy Inpatient Evaluation/Re-Eval M1 PT/OT-IP Prior Functional Status Start: 03/14/24 10:54 Freq: NEEDED Status: Active Protocol: Document 03/14/24 10:55 [facility] (Rec: 03/14/24 11:12 [facility] [id number]) Medical Review Prior Functional Status Communication Pt has aphasia and has difficulty to get his words out. Mobility and Gait Pt states at SNF was using the marnie lift to transfer. Activities of Daily Living and IADL's Pt needing assist for all ADL and mobility needs. Social History Household Members children Living Arrangements Skilled Nurse Facility M2 OT-IP Current Condition Start: 03/14/24 10:54 Freq: Status: Active Protocol: Document 03/14/24 10:55 [facility] (Rec: 03/14/24 11:12 [facility] [id number]) Occupational Therapy Current Condition Current Condition Evaluation Date 03/14/24 Treatment Diagnosis Removal of left knee prothesis with insertion of static spacer Weight Bearing Status Weight Bearing Status Weight Bear as Tolerated M3 OT- IP Subjective and Pain Start: 03/14/24 10:54 Freq: Status: Active Protocol: Document 03/14/24 10:55 [facility] (Rec: 03/14/24 11:12 [facility] [id number]) OT- Subjective Occupational Therapy Visit Type Type Initial Evaluation Visit Start Time 10:25 Visit Stop Time 10:54 Occupational Therapy Visit Comments Patient Comments Pt agreed to get up , pt's family in the room. Patient/Caregiver Goals TO get better. OT Pain Assessment Pain When Pain Assessed During Mobility Pain Present Pain Present Pain Reported Location Left Knee Intensity 3 Scale Used Numeric (0 - 10) M4 OT- IP ADL's Start: 03/14/24 10:54 Freq: Status: Active Protocol: Document 03/14/24 10:55 [facility] (Rec: 03/14/24 11:12 [facility] [id number]) OT [id number] Comments OT Self-Feeding Comments Not at meal time. OT ADL-Grooming Comments OT Grooming Comments Not performed. OT ADL-Oral Care Comments Oral Care Comments Not performed. OT ADL-Dressing General Eval Lower Body Dressing Ability Total Assistance Areas Needing Assistance Socks Comments OT Dressing Comments Pt not wanting the left sock on. OT ADL-Toileting General Evaluation Toileting Ability Total Assistance Areas Needing Assistance Empty Catheter or Colostomy OT ADL-Bathing Comments OT Bathing Comments Sponge bath more appropriate at this time. M5 OT- IP IADL's Start: 03/14/24 10:54 Freq: Status: Active Protocol: Document 03/14/24 10:55 [facility] (Rec: 03/14/24 11:12 [facility] [id number]) OT-Instrumental Activities of Daily Living Home Safety Awareness Awareness of Need for Assistance at Home Good Awareness Medication Management Medication Management Caregiver Administers Money Management Money Management Caregiver Provides Assistance Meal Preparation Meal Preparation Caregiver Provides Assist Air Sealing Technician Air Sealing Technician Caregiver Provides Assist M6 OT- IP Functional Cognition Start: 03/14/24 10:54 Freq: Status: Active Protocol: Document 03/14/24 10:55 [facility] (Rec: 03/14/24 11:12 [facility] [id number]) Cognitive Factors Limiting Selfcare Function Cognitive Ability Level of Alertness Alert Patient Orientation Name,Age,Birthday,Month,Date, Year,Day of Week,Place, Situation Attention Span Ability Capable of Focused Attention, Capable of Sustained Attention Ability to Follow Commands Able to Follow One Step Commands with Increased Time, Able to Follow One Step Commands with Repetition Cognitive Comments Cognitive Assessment Comments Pt able to follow commands for mobility, but has difficulty to follow directions, needing increased time to process and initiate movements. OT- Vision and Hearing OT- Vision Assessment Visual Acuity Glasses All The Time Visual Attentiveness WFL Occular Pursuits WFL M7 OT- IP Mobility and Balance Start: 03/14/24 10:54 Freq: Status: Active Protocol: Document 03/14/24 10:55 [facility] (Rec: 03/14/24 11:12 [facility] [id number]) OT- Bed Mobility Assessment Supine to Sit Supine to Sit Assist Maximum Assistance,2 Person Assistance Scooting Scooting to Edge of Bed Maximum Assistance,2 Person Assistance OT-Transfer Assessment Comments Mobility Comments MAXA X 2 to get to the edge of the bed. MAX/Total X2 to take small scoot to the head of the bed. Total A x2 to get back into bed. Attempted to stand with FWW and not able to come to stand with MAXA x2. BP supine with HOB up at 44 degrees 95/56 and while sitting on the edge of the bed 119/46. 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 Pt also complaining of left shoulder pain during movements. OT Sensation Assessment Comments Summary Comments Intact for light touch BUE. M9 OT- IP Assessment and Plan Start: 03/14/24 10:54 Freq: Status: Active Protocol: Document 03/14/24 10:55 [facility] (Rec: 03/14/24 11:12 [facility] [id number]) OT Summary Assessment and Plan Potential Rehabilitation Potential Good Analytic Complexity at Evaluation Moderate Summary OT Impairments Pain,Range of Motion,Strength, Balance,Coordination, Functional Cognition, Functional Mobility,Self- Feeding,Grooming,Toilet Transfers,Shower Transfers, Activity Tolerance Progress Towards Goals Slow Progress due to Pain,Slow Progress due to Medical Issues,Slow Progress due to Activity Tolerance,Slow Progress due to Cognition Assessment Summary Pt MOD complexity and main barriers are pain, having difficulty to initiate movements and follow commands- however may also be from having history of CVA. Pt will greatly benefit from skilled rehab to help maximize his level of independence. Goals Self-Feeding Goal Standby Assistance Grooming Goal Standby Assistance Toilet Transfer Goal Moderate Assistance Shower Transfer Goal Moderate Assistance OT-Other Goals Goals above for sliding board transfer. Days to Meet Goals 40 Frequency of Treatment Other frequency 5x/week Treatment Plan OT Treatment Plan ADL Training,Functional Cognition Training,Functional Mobility,Patient/Family Education,Discharge Planning Discharge Recommendations OT Discharge Recommendations SNF Rehab Transportation Needs at Discharge Wheelchair/Cabulance/stretcher
--- NOTE | 2024-03-14 11:13 | PT.IIE ---
Current Diagnoses Infection and inflammatory reaction due to internal left knee prosthesis, initial encounter (03/13/24) Surgery Performed Operation Date: 03/13/24 07:45 Actual Procedures p Explantation of left total knee arthroplasty with placement of antibiotic cement spacer(Left) - Farhan Garcia MD Surgical History (Last Updated 03/01/24 @ 10:27 by Solange Mcdonald, RN) H/O gastric bypass H/O left inguinal hernia repair (03/20/20) H/O Spinal surgery H/O total knee replacement History of cholecystectomy Hx of knee surgery (01/25/24) S/P PICC central line placement (01/31/24) Medical History (Last Updated 03/01/24 @ 10:26 by Solange Mcdonald, RN) Allergic rhinitis Aortic stenosis Atrial fibrillation BPH w/o urinary obs/LUTS Chronic kidney disease (CKD) stage G3a/A1, moderately decreased glomerular filtration rate (GFR) between 45-59 mL/min/1.73 square meter and albuminuria creatinine ratio less than 30 mg/g Chronic, continuous use of opioids CVA (cerebral vascular accident) (06/10/23) DDD (degenerative disc disease), lumbar Dysphagia Essential hypertension Fatigue due to sleep pattern disturbance GERD (gastroesophageal reflux disease) Hyperlipidemia Iron deficiency anemia following bariatric surgery 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) Normal cardiac ejection fraction (06/03/23) Obesity (BMI 30-39.9) Obstructive sleep apnea, adult Pacemaker (2007) Physical Therapy Inpatient Evaluation/Re-Eval M1 PT/OT-IP Prior Functional Status Start: 03/14/24 07:54 Freq: NEEDED Status: Active Protocol: Document 03/14/24 10:24 [facility] (Rec: 03/14/24 11:12 [facility] [id number]) Medical Review Prior Functional Status Medical History Reviewed Yes Communication Unsure baseline diet and pt presents with aphasia today, trouble with word-finding and some inattentiveness to the left, resistance to using left side at all Mobility and Gait Recently OOB with marnie lift at SNF. Daughter, TATUM and pt cannot state the last time that pt ambulated. Pt reports that he was in w/c when he got up at SNF. Per TATUM, pt's last Mar 09, only 6 days ago Activities of Daily Living and IADL's Likely heavy assistance all ADLs at SNF, see OT note Social History Living Arrangements Skilled Nurse Facility Number of Stairs To Enter/Railing? Accessible entrance to SNF Additional Social History Comment W/c, adjustable bed, accessible bathing opportunities at SNF. Pt cannot state if they tried standing, SPT or SB with therapy at SNF, appears that they might have tried standing with RW. Pt reports no gait M1 PT/OT-IP Prior Functional Status Start: 03/14/24 10:54 Freq: NEEDED Status: Active Protocol: Document 03/14/24 10:55 [facility] (Rec: 03/14/24 11:12 [facility] [id number]) Medical Review Prior Functional Status Communication Pt has aphasia and has difficulty to get his words out. Mobility and Gait Pt states at SNF was using the marnie lift to transfer. Activities of Daily Living and IADL's Pt needing assist for all ADL and mobility needs. Social History Household Members children Living Arrangements Skilled Nurse Facility M2 PT-IP Current Condition Start: 03/14/24 07:54 Freq: NEEDED Status: Active Protocol: Document 03/14/24 10:24 [facility] (Rec: 03/14/24 11:12 [id number]) Physical Therapy Current Condition Current Condition Evaluation Date 03/14/24 Treatment Diagnosis Left periprosthetic infection s/p removal and spacer, wound vac M3 PT-IP Subjective Start: 03/14/24 07:54 Freq: NEEDED Status: Active Protocol: Document 03/14/24 10:24 [facility] (Rec: 03/14/24 11:12 [id number]) Subjective Physical Therapy Visit Type Type Initial Evaluation Visit Start Time 10:24 Visit Stop Time 10:53 Number of IT PROGRAM MANAGER Visits 0 Physical Therapy Visit Comments Patient Comments Pt is apprehensive but agreeable to try mobility with therapy. Therapy Pain Assessment Pain When Pain Assessed At Rest Pain Present Pain Present Pain Reported Location Left Knee Intensity 8 M4 PT-IP Mobility and Gait Start: 03/14/24 07:54 Freq: NEEDED Status: Active Protocol: Document 03/14/24 10:24 [facility] (Rec: 03/14/24 11:12 [id number]) PT-Bed Mobility Assessment Supine to Sit Supine to Sit Maximum Assistance,2 Person Assistance,Head of Bed Elevated,Bedrails Sit to Supine Sit to Supine Maximum Assistance,2 Person Assistance Scooting Scooting to Edge of Bed Dependent Scooting Up and Down in Bed Dependent PT-Transfer Assessment Comments Mobility Comments Pt tends to heavily sacral sit when therapist tries to help scoot him out to side of bed with pad and this makes assisting pt challenging: he becomes more heavy posteriorly with attempting movement. Delayed command following with simple one step cues and pt with [place] and some cognitive changes as well. Pt is unable to stand up despite +2 assistance, bed rail, walker and gait belt, attempting to stand up on right foot. Left leg in rigid extension/ straight out post-op. Pt resists forward leaning and weight shifting and cannot scoot to the left up to HOB. PT-Balance Assessment Sitting Balance and Reactions Static Sitting Balance Ability Fair Dynamic Sitting Balance Ability Poor M5 PT-IP Objective Assessments Start: 03/14/24 07:54 Freq: NEEDED Status: Active Protocol: Document 03/14/24 10:24 [facility] (Rec: 03/14/24 11:12 [facility] [id number]) Orientation Orientation/Cognition Level of Alertness Alert Orientation Name,Birthday,Month,Date,Year, Day of Week,Place,Situation Language Function Ability Expressive Aphasia,Hard of Hearing Safety Awareness Decreased Safety Awareness Comments Poor ability to communicate baseline mobility, what he was doing with therapy at [facility] given aphasia, good effort with PT today Gross Range of Motion Upper Extremity ROM Assessment Left Impaired Lower Extremity ROM Assessment Left Impaired Strength Upper Extremity Strength Assessment Left Impaired Lower Extremity Strength Assessment Left Impaired Comments Strength Comments No knee movement left knee and it appears locked in extension post-op, little left toe wiggling and ankle movement when asked. He also has trouble understanding cues to bend right knee and to push through foot to help scoot up in bed and roll and so in this way, right LE ROM and functional use is limited today but unclear if d/t anatomical reason or not, appears not Coordination Assessment Gross Coordination Gross Coordination Impaired Sensation Assessment Sensation Gross Sensation Left LE Impaired M6 PT-IP Treatment Start: 03/14/24 07:54 Freq: NEEDED Status: Active Protocol: Document 03/14/24 10:24 [facility] (Rec: 03/14/24 11:12 [facility] [id number]) Physical Therapy Treatment Exercises Exercises Ankle Pumps Education Education Provided Weight Bearing Status,Safety M7 PT-IP Assessment and Plan Start: 03/14/24 07:54 Freq: NEEDED Status: Active Protocol: Document 01/01/25 10:24 [facility] (Rec: 03/14/24 11:12 [facility] [id number]) PT Summary Assessment and Plan Potential Rehabilitation Potential Fair Status of Condition at Evaluation Evolving Summary Impairments Pain,ROM,Strength,Balance, Coordination,Sensation,Bed Mobility,Transfers,Gait, Activity Tolerance Progress Towards Goals Slow Progress due to Pain,Slow Progress due to Activity Tolerance Assessment Summary Pt presents with apprehension with mobility, left leg pain, some decreased attentiveness to left side post-op prosthesis removal left knee and spacer placed. Pt's BP is low today and is taken in L proximal UE: hook lying 95/58; sitting 119/46, 98 and pt does not report light- headedness with getting to EOB . Pt's left leg is almost surgically locked in extension and per surgeon communication this a.m., there are no ROM precautions or immobilizer needed. Pt appears fearful of movement and has a hard time using even his more normal right leg for scooting, bed mobility and attempted STS. He tends to heavily sacral sit and press back posteriorly with attempted scooting to EOB with therapist assistance. Returned to bed with initiating bed into cardiac chair positioning. Pt will require SNF at d/c for ongoing PT, progress with transfers to the right, wound care/vac management. Goals Bed Mobility Goal Contact Guard Assistance Transfer Goal Minimal Assistance,Front Wheeled Walker Gait Goal Minimal Assistance,Front Wheel Walker Gait Distance 5 Other Goals Focus on transfers such as SB or SPT this acute PT course rather than gait Pt will mobilize 75' in w/c with right arm and right leg and no more than SBA. Days to Meet Goals 10 Frequency of Treatment Frequency Of Treatment Once a Day Treatment Plan Physical Therapy Treatment Plan Bed Mobility Training,Transfer Training,Gait Training, Therapeutic Exercise,Balance Retraining,Post Op Education, Discharge Planning,Hot or Cold Pack,Neuromuscular Re-ed, Coordination Retraining,Manual Therapy Weight Bearing Status Weight Bearing Status Weight Bear as Tolerated Allowed Weight Bearing Amount (enter % LLE or #) (%) Recommendations To Nursing Amount of Assist Needed Mechanical Lift Discharge Recommendations PT Discharge Recommendations SNF Rehab Transportation Needs at Discharge Wheelchair/Cabulance,Stretcher /Ambulance
--- NOTE | 2024-03-14 11:39 | PM.PNPO.1 ---
Subjective Subjective Interval history: Adequate pain control. He was mobilized some with physical therapy. He notes it was fairly uncomfortable. He is resting comfortably in bed with his family at bedside. Exam Vital Signs (past 8 hours): - 03/14/24 08:00 03/14/24 08:45 Temperature 97.6 F Pulse Rate 102 H 89 Respiratory Rate 16 Blood Pressure 91/56 L 98/48 L Pulse Oximetry 97 Oxygen Flow Rate 0 Oxygen Delivery Method Room Air Oxygen Flow Rate 0 Narrative Exam Narrative: Alert, aphasia but easily able to communicate some, left leg adequate capillary refill, calf soft, dressing intact, wound VAC working, fires ankle flexors and extensors and EHL with no difficulty Objective Labs 03/14/24 09:40 03/14/24 05:35 Labs: Laboratory Results - last 24 hr 03/14/24 03/14/24 05:35 09:40 WBC 11.2 H RBC 4.07 L Hgb 11.6 L 11.1 L Hct 35.9 L 34.2 L MCV 84.1 MCH 27.2 MCHC 32.3 RDW 15.3 H Plt Count 162 Neut % (Auto) 79.0 H Lymph % (Auto) 9.4 L [place] % (Auto) 11.3 Eos % (Auto) 0.0 L Baso % (Auto) 0.3 Neut # (Auto) 8900 H Lymph # (Auto) 1100 [place] # (Auto) 1300 H Eos # (Auto) 0 Baso # (Auto) 0 ESR 18 H Sodium 135 L Potassium 4.9 Chloride 103 Carbon Dioxide 27 BUN 30 H Creatinine 0.95 Estimated GFR > 60 BUN/Creatinine Ratio 31.6 H Glucose 140 H Calcium 9.1 Magnesium 1.9 Total Bilirubin 0.7 AST 44 ALT 16 Alkaline Phosphatase 89 Total Creatine Kinase 68 C-Reactive Protein 3.9 H Total Protein 5.8 L Albumin 3.2 L Globulin 2.6 Albumin/Globulin Ratio 1.2 [facility] Medical History (Updated 03/01/24 @ 10:26 by Solange Mcdonald RN) CVA (cerebral vascular accident) (06/10/23) Dysphagia Normal cardiac ejection fraction (06/03/23) Aortic stenosis Chronic, continuous use of opioids Iron deficiency anemia following bariatric surgery BPH w/o urinary obs/LUTS DDD (degenerative disc disease), lumbar Pacemaker (2007) Allergic rhinitis Obstructive sleep apnea, adult Obesity (BMI 30-39.9) Hyperlipidemia Fatigue due to sleep pattern disturbance GERD (gastroesophageal reflux disease) Essential hypertension 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) Left inguinal hernia Chronic kidney disease (CKD) stage G3a/A1, moderately decreased glomerular filtration rate (GFR) between 45-59 mL/min/1.73 square meter and albuminuria creatinine ratio less than 30 mg/g Atrial fibrillation Surgical History (Updated 03/01/24 @ 10:27 by Solange Mcdonald RN) S/P PICC central line placement (01/31/24) H/O Spinal surgery Hx of knee surgery (01/25/24) H/O total knee replacement H/O left inguinal hernia repair (03/20/20) History of cholecystectomy H/O gastric bypass Family History Family/Other Loud snoring Dementia Father Loud snoring Obesity Hypertension Heart disease Mother Loud snoring Obesity Hypertension Depression Anxiety Family/Other Hypertension Depression Social History household members: children Smoking Status: Never smoker alcohol intake: never Assessment & Plan Post-op Postoperative Procedures: Procedures Operation Date: 03/13/24 07:45 Actual Procedure Side Surgeon p Explantation of left total knee arthroplasty with placement of antibiotic cement spacer Left Farhan Garcia MD Postoperative day: 1 Postoperative status: doing well Postoperative status narrative: Patient is doing well postoperatively. He has a wound VAC in place. He is getting IV antibiotics through his PICC line. He has essentially a fusion of his left knee with an internal antibiotic spacer. I told him it is okay to mobilize him with weight-bearing as tolerated on the left leg but there is obviously no motion in the left knee. Anticipate he will need [facility]. Plan is to keep his wound VAC on until his postop appointment. He will continue with IV antibiotics. Cultures are pending. Quality VTE Deep Vein Thrombosis/Pulmonary Embolism Present on Admission: No
--- NOTE | 2024-03-14 13:48 | CM.DANOTE ---
DCP Assessment note pt is a 69yo M here INPT POD1 from left knee revision with Dr. Garcia. Followed by hospitalist team due to medical complexity/coordination of IV abx at tx. previously followed by ID provider ([place]) that will continue to follow him at [place] as well. 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 Supportive local son Kulwinder is main contact ([phone]). Per chart review, pt's Freda 6 days ago. Per August at , can accept pt back. Once IV abx plan is known for duration can submit for [employer] auth. PT/OT rec SNF. Per medical staff, final abx cultures pending. could need 6 weeks? per provider, on ceftriaxone now and likely will need to add dapto to abx plan. Per Dr. Cardona, pt has wound vac that will go with him? but per nursing staff, pt does not have a wound vac? Per nursing staff, pt has a PICC line. LONG WALL MINING MACHINE HELPER met with pt in room. introduced self and role. Pt confirms preference to dc to when able. Denies questions at this time. P: Dc to [facility] once final abx plan known/ins auth in place. PASRR needed (likely potential for level 2 due to recent passing of spouse. no MH diagnosis on chart. pt has been appropriate and normal signs of grieving process with staff so far during admission. did not initiate level two today due to current holiday/triaging needs). CM team to continue to follow closely NEWTON Gomez Discharge Planning/Care Management CM Discharge Assessment Start: 03/14/24 13:45 Freq: Status: Active Protocol: Document 03/14/24 13:45 (Rec: 03/14/24 13:47 [id number]) Discharge Planning Assessment Assigned Cub Reporter NEWTON Avalos DPOA/Assigned Designee Name omi Miramontes Contact Information [phone] Advance Directives? No Advance Directives on File No History Provided By Patient,Family Member,Medical Record Prior Living Arrangements Skilled Nurse Facility Comment hx of [facility] Household Members none Type of transporation used prior to Relies on Others admit Facility Name Admitted From: [facility] Willing to Return to Facility? Yes Is patient alert and oriented? Yes Needs Assistance With Home Chores / Shopping Patient/Family Preference Long-Term Facility Comment Needs TBD. Cultures pending. Discharge Plan Long-Term Facility Transportation Arrangement facility transport Referrals Initiated Long-Term Additional Comment [facility] can accept, auth pending final abx culture recommendations SNF/HH Preference [facility] Whiteboard Updated in Patient Room with Yes name and ext. # of Cub Reporter Review Status In Process Please Provide Date Initial DC 03/14/24 Assessment Was Performed Next Review Type Continued Stay Review Pre-Anesthesia Assessment Start: 03/01/24 10:29 Freq: Status: Active Protocol: Document 03/01/24 10:29 LB (Rec: 03/01/24 10:53 LB [id number]) Pre-Anesthesia Assessment PAC Comment 03/01/24 Chart and anesthesia review. Preferred Name [facility] Patient Information Reviewed Via Chart Review Diagnostic Results BMP/CMP,CBC,EKG Comment 02/03/24 at . EKG outside record. Primary Care Provider Natasha Carroll Specialist Seen Front Elevator Operator,Orthopedist,Other Primary Language Macedonian Preferred Language Macedonian Kennel Hand Required No Height 177.8 cm Weight 115.666 kg Body Mass Index (BMI) 36.6 Anesthesia Review Requested Yes: Surgeon request - cardiac . Pressure Dispatcher Yes: Email sent. alcohol intake never Smoking Status Never smoker Musculoskeletal Symptoms Difficulty Walking Patient is completely paralyzed or No completely immobile Prosthesis or Orthotic Device Wheelchair Hx Sleep Apnea Yes Currently Taking a Beta Shamika Yes: Metoprolol 100mg daily. Anti-Coagulant Therapy Yes: Eliquis 5mg BID. Has a Front Elevator Operator Yes Front Elevator Operator name Dr Lamar Cardiac Testing Yes: Echo 06/03/23 EF 60-65%. Hx Pacemaker/ICD Yes Pacemaker Rep Required? No Comment Cardiac appt 03/08/24. Visit notes and pacemaker form in surgery folder. Dysphagia Yes Gastrointestinal Symptoms Dysphagia Hx Urinary Self Catheterization No Diabetes No Presence of External or Internal Medical Yes: Pacemaker, left knee, Devices left hip, spine X-stop, PICC. Received a COVID vaccine? Yes: moderna x5 Marital Status Lives With spouse,children Current Living Arrangements Skilled Nurse Facility Patient Discharge Plan Description Long-Term Facility/Rehab Additional comment [facility]. Do You Have Any Spiritual Beliefs That No May Affect Your HC Choices? Do You Have Any Cultural Practices That No May Affect Your HC Choices? Emergency Contact Name Freda Houston - Emergency Contact Advance Directives on File No
[2024-03-14] MEDS: cefTRIAXone 2,000 MG in SODIUM CHLORIDE 0.9% 100 ML 200 MG IV (14:02)
[2024-03-14] MEDS: SODIUM CHLORIDE 0.9% IV (17:15)
[2024-03-14] MEDS: DAPTOMYCIN IV (17:15)
--- NOTE | 2024-03-14 17:55 | P.PN_ITS ---
Subjective Subjective Interval history: mildly hypotensive today, no symptoms. Pain is controlled generally. Exam Vital Signs (past 8 hours): Oxygen Delivery Method Room Air Oxygen Flow Rate 0 Narrative Exam Narrative: NAD, alert and oriented. Fluent speech. Lungs are clear, normal rate and effort. Heart is regular, no murmur gallop or rub. Abdomen is soft, non distended. Extremities are free of edema. Objective Labs 03/14/24 09:40 03/14/24 05:35 Labs: Laboratory Results - last 24 hr 03/14/24 03/14/24 05:35 09:40 WBC 11.2 H RBC 4.07 L Hgb 11.6 L 11.1 L Hct 35.9 L 34.2 L MCV 84.1 MCH 27.2 MCHC 32.3 RDW 15.3 H Plt Count 162 Neut % (Auto) 79.0 H Lymph % (Auto) 9.4 L [place] % (Auto) 11.3 Eos % (Auto) 0.0 L Baso % (Auto) 0.3 Neut # (Auto) 8900 H Lymph # (Auto) 1100 [place] # (Auto) 1300 H Eos # (Auto) 0 Baso # (Auto) 0 ESR 18 H Sodium 135 L Potassium 4.9 Chloride 103 Carbon Dioxide 27 BUN 30 H Creatinine 0.95 Estimated GFR > 60 BUN/Creatinine Ratio 31.6 H Glucose 140 H Calcium 9.1 Magnesium 1.9 Total Bilirubin 0.7 AST 44 ALT 16 Alkaline Phosphatase 89 Total Creatine Kinase 68 C-Reactive Protein 3.9 H Total Protein 5.8 L Albumin 3.2 L Globulin 2.6 Albumin/Globulin Ratio 1.2 [facility] Medical History (Updated 03/01/24 @ 10:26 by Solange Mcdonald RN) CVA (cerebral vascular accident) (06/10/23) Dysphagia Normal cardiac ejection fraction (06/03/23) Aortic stenosis Chronic, continuous use of opioids Iron deficiency anemia following bariatric surgery BPH w/o urinary obs/LUTS DDD (degenerative disc disease), lumbar Pacemaker (2007) Allergic rhinitis Obstructive sleep apnea, adult Obesity (BMI 30-39.9) Hyperlipidemia Fatigue due to sleep pattern disturbance GERD (gastroesophageal reflux disease) Essential hypertension 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) Left inguinal hernia Chronic kidney disease (CKD) stage G3a/A1, moderately decreased glomerular filtration rate (GFR) between 45-59 mL/min/1.73 square meter and albuminuria creatinine ratio less than 30 mg/g Atrial fibrillation Surgical History (Updated 03/01/24 @ 10:27 by Solange Mcdonald RN) S/P PICC central line placement (01/31/24) H/O Spinal surgery Hx of knee surgery (01/25/24) H/O total knee replacement H/O left inguinal hernia repair (03/20/20) History of cholecystectomy H/O gastric bypass Family History Family/Other Loud snoring Dementia Father Loud snoring Obesity Hypertension Heart disease Mother Loud snoring Obesity Hypertension Depression Anxiety Family/Other Hypertension Depression Social History household members: none Smoking Status: Never smoker alcohol intake: never Assessment & Plan Assessment & Plan narrative: 1. Left infected knee hardware with strep mitis, s/p removal of hardware 03/13 -continue ceftriaxone 2g every 24 hours per infectious disease, and added daptomycin 8 mg / kg per infectious disease provider Dr. Trent. Discussed with her on 03/13. -check cbc, cmp, CK, and esr/crp. ESR 18, CRP 3.9. Otherwise unremarkable lab evaluation today other than slight drop in Hg. - awaiting updated operative cultures, review with Dr. Trent for updated antibiotic recommendations. 2. Chronic diastolic heart failure, present on admission and stable. - continue home medications 3. Dysphagia with regurgitation, chronic . 4. persistent A-fib, present on admission and stable. -continue apixiban per orthopedics, to resume on 03/15/2023 -continue home metoprolol 50 mg daily(of note with hypotension today dose was reduced to 50 mg daily). Held home diltiazem today as well. -hold any NSAIDs -recommend sending reconciled medication list to social work supervisor at his next visit as meds at [facility] are different than currently on social work supervisor notes. 5. Hyperlipidemia. Present on admission and active. 6. GERD. Present on admission and active. - Continue pantoprazole 7. BPH. Present on admission and active. -Continue Flomax 8. CVA with residual deficits. - wheel chair dependent, has communication deficits and word finding difficulties at baseline. Medicine will continue to follow this patient during his stay here. Code: Full, surrogate is patient's Son, and daughter. also note patient's spouse recently as well. DVT: per primary team I have utilized all available immediate resources to obtain, update, or review the patient's current medications. Additional history obtained via discussions with the infectious disease provider and orthopedic surgeon . These discussions contributed to the creation of the above assessment and plan. I have reviewed patient's presenting documentation, labs, and imaging personally. Time-Based Coding :: [TOTAL MINUTES] spent with patient and on the chart (including review of chart, obtaining history, exam, reviewing outside data, placing orders, documenting exam and treatment plan, and counseling patient) on [DATE]. Quality VTE Deep Vein Thrombosis/Pulmonary Embolism Present on Admission: No
[2024-03-14 23:27] VITALS: BP 124/55; PULSE 81; RESP 16; TEMP 36.3; O2SAT 97
[2024-03-15] MEDS: OXYCODONE IR 5 MG TABLET PO (06:14)
--- NOTE | 2024-03-15 07:44 | P.PN_ITS ---
Subjective Subjective Date Patient Seen: 03/15/24 Time Patient Seen: 07:45 Interval history: Pain is mild this morning. Otherwise without complaints. Exam Vital Signs (past 8 hours): Oxygen Delivery Method Room Air Oxygen Flow Rate 0 Narrative Exam Narrative: 69-year-old male resting comfortably in bed in no apparent distress. Wound VAC left knee functioning, able to wave ankle left ankle, sensation grossly intact to light touch left lower extremity. Const General: cooperative and comfortable Nutritional Appearance: average body habitus Orientation: alert Objective Labs 03/14/24 09:40 03/14/24 05:35 Labs: Laboratory Results - last 24 hr 03/14/24 03/14/24 05:35 09:40 WBC 11.2 H RBC 4.07 L Hgb 11.1 L Hct 34.2 L MCV 84.1 MCH 27.2 MCHC 32.3 RDW 15.3 H Plt Count 162 Neut % (Auto) 79.0 H Lymph % (Auto) 9.4 L [place] % (Auto) 11.3 Eos % (Auto) 0.0 L Baso % (Auto) 0.3 Neut # (Auto) 8900 H Lymph # (Auto) 1100 [place] # (Auto) 1300 H Eos # (Auto) 0 Baso # (Auto) 0 ESR 18 H Sodium 135 L Potassium 4.9 Chloride 103 Carbon Dioxide 27 BUN 30 H Creatinine 0.95 Estimated GFR > 60 BUN/Creatinine Ratio 31.6 H Glucose 140 H Calcium 9.1 Magnesium 1.9 Total Bilirubin 0.7 AST 44 ALT 16 Alkaline Phosphatase 89 Total Creatine Kinase 68 C-Reactive Protein 3.9 H Total Protein 5.8 L Albumin 3.2 L Globulin 2.6 Albumin/Globulin Ratio 1.2 [facility] Medical History CVA (cerebral vascular accident) (06/10/23) Dysphagia Normal cardiac ejection fraction (06/03/23) Aortic stenosis Chronic, continuous use of opioids Iron deficiency anemia following bariatric surgery BPH w/o urinary obs/LUTS DDD (degenerative disc disease), lumbar Pacemaker (2007) Allergic rhinitis Obstructive sleep apnea, adult Obesity (BMI 30-39.9) Hyperlipidemia Fatigue due to sleep pattern disturbance GERD (gastroesophageal reflux disease) 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) Left inguinal hernia Chronic kidney disease (CKD) stage G3a/A1, moderately decreased glomerular filtration rate (GFR) between 45-59 mL/min/1.73 square meter and albuminuria creatinine ratio less than 30 mg/g Atrial fibrillation Surgical History S/P PICC central line placement (01/31/24) H/O Spinal surgery Hx of knee surgery (01/25/24) H/O total knee replacement H/O left inguinal hernia repair (03/20/20) History of cholecystectomy H/O gastric bypass Family History Family/Other Loud snoring Dementia Father Loud snoring Obesity Hypertension Heart disease Mother Loud snoring Obesity Hypertension Depression Anxiety Family/Other Hypertension Depression Social History household members: none Smoking Status: Never smoker alcohol intake: never Assessment & Plan Post-op Postoperative Procedures: Procedures Operation Date: 03/13/24 07:45 Actual Procedure Side Surgeon p Explantation of left total knee arthroplasty with placement of antibiotic cement spacer Left Farhan Garcia MD Postoperative day: 2 Postoperative status narrative: Stable Postoperative plan narrative: Eliquis 5 mg b.i.d. to start today for DVT prophylaxis If he is able to bear any weight on this extremity and do any ambulation he is weight-bearing as tolerated Follow cultures currently on ceftriaxone and daptomycin, preliminary aerobic culture shows no growth, anaerobic culture pending Chronic diastolic heart failure, dysphagia with regurgitation, persistent AFib, hyperlipidemia, GERD, BPH, CVA with residual deficits followed by hospitalist. Appreciate their recommendation. Disposition to fdc facility to be determined Follow-up with Dr. Garcia on 03/28/24 for wound check. Quality VTE Deep Vein Thrombosis/Pulmonary Embolism Present on Admission: No
--- NOTE | 2024-03-15 07:55 | PM.PN.1 ---
Subjective Subjective Interval history: Summary: Status post removal of hardware from left knee due to chronic infection. S: He is doing well, pain is well-controlled. He requests melatonin for sleep. No chest pain, or dyspnea. Exam Vital Signs (past 8 hours): Oxygen Delivery Method Room Air Oxygen Flow Rate 0 Narrative Exam Narrative: NAD, alert and oriented. Slow and slurred speech which is chronic and normal. Lungs are clear, normal rate and effort. Heart is regular, no murmur gallop or rub. Abdomen is soft, non distended. Extremities are free of edema. Left knee is wrapped. Objective Labs 03/14/24 09:40 03/14/24 05:35 Labs: Laboratory Results - last 24 hr 03/14/24 03/14/24 05:35 09:40 WBC 11.2 H RBC 4.07 L Hgb 11.1 L Hct 34.2 L MCV 84.1 MCH 27.2 MCHC 32.3 RDW 15.3 H Plt Count 162 Neut % (Auto) 79.0 H Lymph % (Auto) 9.4 L [place] % (Auto) 11.3 Eos % (Auto) 0.0 L Baso % (Auto) 0.3 Neut # (Auto) 8900 H Lymph # (Auto) 1100 [place] # (Auto) 1300 H Eos # (Auto) 0 Baso # (Auto) 0 ESR 18 H Sodium 135 L Potassium 4.9 Chloride 103 Carbon Dioxide 27 BUN 30 H Creatinine 0.95 Estimated GFR > 60 BUN/Creatinine Ratio 31.6 H Glucose 140 H Calcium 9.1 Magnesium 1.9 Total Bilirubin 0.7 AST 44 ALT 16 Alkaline Phosphatase 89 Total Creatine Kinase 68 C-Reactive Protein 3.9 H Total Protein 5.8 L Albumin 3.2 L Globulin 2.6 Albumin/Globulin Ratio 1.2 [facility] Medical History CVA (cerebral vascular accident) (06/10/23) Dysphagia Normal cardiac ejection fraction (06/03/23) Aortic stenosis Chronic, continuous use of opioids Iron deficiency anemia following bariatric surgery BPH w/o urinary obs/LUTS DDD (degenerative disc disease), lumbar Pacemaker (2007) Allergic rhinitis Obstructive sleep apnea, adult Obesity (BMI 30-39.9) Hyperlipidemia Fatigue due to sleep pattern disturbance GERD (gastroesophageal reflux disease) 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) Left inguinal hernia Chronic kidney disease (CKD) stage G3a/A1, moderately decreased glomerular filtration rate (GFR) between 45-59 mL/min/1.73 square meter and albuminuria creatinine ratio less than 30 mg/g Atrial fibrillation Surgical History S/P PICC central line placement (01/31/24) H/O Spinal surgery Hx of knee surgery (01/25/24) H/O total knee replacement H/O left inguinal hernia repair (03/20/20) History of cholecystectomy H/O gastric bypass Family History Family/Other Loud snoring Dementia Father Loud snoring Obesity Hypertension Heart disease Mother Loud snoring Obesity Hypertension Depression Anxiety Family/Other Hypertension Depression Social History household members: none Smoking Status: Never smoker alcohol intake: never Assessment & Plan Assessment & Plan narrative: 1. Left infected knee hardware with strep mitis, s/p removal of hardware 03/13. Present on admission and active. -continue ceftriaxone 2g every 24 hours per infectious disease, and added daptomycin 8 mg / kg per infectious disease provider Dr. Trent. Discussed with her on 03/13. -check cbc, cmp, CK, and esr/crp. ESR 18, CRP 3.9. Otherwise unremarkable lab evaluation today other than slight drop in Hg. - awaiting updated operative cultures, review with Dr. Trent for updated antibiotic recommendations. 2. Chronic diastolic heart failure, present on admission and stable. - continue home medications 3. Dysphagia with regurgitation, present on admission and chronic . 4. persistent A-fib, present on admission and stable. -continue apixiban per orthopedics, to resume on 03/15/2023 -continue home metoprolol 50 mg daily(of note with hypotension today dose was reduced to 50 mg daily). Held home diltiazem today as well. -hold any NSAIDs -recommend sending reconciled medication list to finish off operator at his next visit as meds at [facility] are different than currently on finish off operator notes. 5. Hyperlipidemia. Present on admission and active. 6. GERD. Present on admission and active. - Continue pantoprazole 7. BPH. Present on admission and active. -Continue Flomax 8. CVA with residual deficits. Present on admission and stable. - wheel chair dependent, has communication deficits and word finding difficulties at baseline. Plan: -cultures remained negative, discussed with Infectious Disease today. He will be on at least 6 more weeks of IV ceftriaxone. -continue antibiotics and plan for transfer back to [facility] at some point. He has a wound VAC in place which will be on for a short time. Code: Full, surrogate is patient's Son, and daughter. also note patient's spouse recently as well. DVT: per primary team Time-Based Coding :: [TOTAL MINUTES] spent with patient and on the chart (including review of chart, obtaining history, exam, reviewing outside data, placing orders, documenting exam and treatment plan, and counseling patient) on [DATE]. Quality VTE Deep Vein Thrombosis/Pulmonary Embolism Present on Admission: No
[2024-03-15 08:00] VITALS: BP 106/63; PULSE 108; RESP 16; TEMP 36.6; O2SAT 96
[2024-03-15] MEDS: DOCUSATE 100 MG CAPSULE PO ×2 (08:18→21:46)
[2024-03-15] MEDS: ACETAMINOPHEN 325 MG TABLET 650 MG PO ×3 (08:19→21:46)
[2024-03-15] MEDS: LORATADINE 10 MG TABLET PO (08:19)
[2024-03-15] MEDS: APIXABAN 5 MG TABLET PO ×2 (08:19→21:46)
[2024-03-15] MEDS: PANTOPRAZOLE DR 40 MG TABLET PO (08:19)
[2024-03-15 09:47] VITALS: BP 110/72; PULSE 98
[2024-03-15] MEDS: METOPROLOL ER 50 MG TABLET PO (09:47)
[2024-03-15] MEDS: NYSTATIN CREAM 30 GM 1 APPLIC TOP (10:00)
[2024-03-15] MEDS: OXYCODONE IR 10 MG TABLET PO (11:51)
[2024-03-15] MEDS: cefTRIAXone 2,000 MG in SODIUM CHLORIDE 0.9% 100 ML 200 MG IV (15:00)
--- NOTE | 2024-03-15 15:33 | PT.IPTN ---
Current Diagnoses Infection and inflammatory reaction due to internal left knee prosthesis, initial encounter (03/13/24) Surgery Performed Operation Date: 03/13/24 07:45 Actual Procedures p Explantation of left total knee arthroplasty with placement of antibiotic cement spacer(Left) - Farhan Garcia MD Physical Therapy Treatment Note M2 PT-IP Current Condition Start: 03/14/24 07:54 Freq: NEEDED Status: Active Protocol: Document 03/14/24 10:24 MB (Rec: 03/14/24 11:12 MB [id number]) Physical Therapy Current Condition Current Condition Evaluation Date 03/14/24 Treatment Diagnosis Left periprosthetic infection s/p removal and spacer, wound vac M3 PT-IP Subjective Start: 03/14/24 07:54 Freq: NEEDED Status: Active Protocol: Document 03/15/24 15:40 TS (Rec: 03/15/24 15:47 TS [id number]) Subjective Physical Therapy Visit Type Type Treatment Note Visit Start Time 15:03 Visit Stop Time 15:33 Number of BEATER TENDER Visits 1 Physical Therapy Visit Comments Patient Comments Pt found resting in bed, he is agreeable to PT. Therapy Pain Assessment Pain When Pain Assessed At Rest Pain Present Pain Present Pain Reported M4 PT-IP Mobility and Gait Start: 03/14/24 07:54 Freq: NEEDED Status: Active Protocol: Document 03/15/24 15:40 TS (Rec: 03/15/24 15:47 TS [id number]) PT-Bed Mobility Assessment Supine to Sit Supine to Sit Maximum Assistance,2 Person Assistance,Head of Bed Elevated,Bedrails Sit to Supine Sit to Supine Maximum Assistance,2 Person Assistance Scooting Scooting to Edge of Bed Dependent PT-Transfer Assessment Sit to and From Stand Sit to and from Stand Maximum Assistance,2 Person Assistance Comments Mobility Comments Supine to sit MaxA x2 for uprighting trunk and LLE assistance to EOB. Pt sits EOB with difficulty, requires cues for upright posture and leaning forward. Attempted STS x1 with MaxA x2, pt could not get full lift from bed. Sit to supine into bed MaxA x2. Pt laterally scoots with Jarrod for readjustment. Pt was left in bed, all needs met. PT-Balance Assessment Sitting Balance and Reactions Static Sitting Balance Ability Poor Dynamic Sitting Balance Ability Poor Standing Balance and Reactions Static Standing Balance Ability Poor Device Used FWW M5 PT-IP Objective Assessments Start: 03/14/24 07:54 Freq: NEEDED Status: Active Protocol: Document 03/14/24 10:24 MB (Rec: 03/14/24 11:12 MB [id number]) Orientation Orientation/Cognition Level of Alertness Alert Orientation Name,Birthday,Month,Date,Year, Day of Week,Place,Situation Language Function Ability Expressive Aphasia,Hard of Hearing Safety Awareness Decreased Safety Awareness Comments Poor ability to communicate baseline mobility, what he was doing with therapy at [facility] given aphasia, good effort with PT today Gross Range of Motion Upper Extremity ROM Assessment Left Impaired Lower Extremity ROM Assessment Left Impaired Strength Upper Extremity Strength Assessment Left Impaired Lower Extremity Strength Assessment Left Impaired Comments Strength Comments No knee movement left knee and it appears locked in extension post-op, little left toe wiggling and ankle movement when asked. He also has trouble understanding cues to bend right knee and to push through foot to help scoot up in bed and roll and so in this way, right LE ROM and functional use is limited today but unclear if d/t anatomical reason or not, appears not Coordination Assessment Gross Coordination Gross Coordination Impaired Sensation Assessment Sensation Gross Sensation Left LE Impaired M6 PT-IP Treatment Start: 03/14/24 07:54 Freq: NEEDED Status: Active Protocol: Document 03/15/24 15:40 TS (Rec: 03/15/24 15:47 TS [id number]) Physical Therapy Treatment Education Education Provided Weight Bearing Status,Safety M7 PT-IP Assessment and Plan Start: 03/14/24 07:54 Freq: NEEDED Status: Active Protocol: Document 03/15/24 15:40 TS (Rec: 03/15/24 15:47 TS [id number]) PT Summary Assessment and Plan Potential Rehabilitation Potential Fair Summary Impairments Pain,ROM,Strength,Balance, Coordination,Sensation,Bed Mobility,Transfers,Gait, Activity Tolerance Progress Towards Goals Slow Progress due to Pain,Slow Progress due to Activity Tolerance Assessment Summary Pt continues to require MaxA x2 for all mobility. Attempted STS this session but pt could not get full lift from the bed. He has difficulty with sitting balance, pt tends to lean back. Goals Bed Mobility Goal Contact Guard Assistance Transfer Goal Minimal Assistance,Front Wheeled Walker Gait Goal Minimal Assistance,Front Wheel Walker Gait Distance 5 Other Goals Focus on transfers such as SB or SPT this acute PT course rather than gait Pt will mobilize 75' in w/c with right arm and right leg and no more than SBA. Days to Meet Goals 10 Frequency of Treatment Frequency Of Treatment Once a Day Treatment Plan Physical Therapy Treatment Plan Bed Mobility Training,Transfer Training,Gait Training, Therapeutic Exercise,Balance Retraining,Post Op Education, Discharge Planning,Hot or Cold Pack,Neuromuscular Re-ed, Coordination Retraining,Manual Therapy Weight Bearing Status Weight Bearing Status Weight Bear as Tolerated Allowed Weight Bearing Amount (enter % LLE or #) (%) Recommendations To Nursing Amount of Assist Needed Mechanical Lift Discharge Recommendations PT Discharge Recommendations SNF Rehab Transportation Needs at Discharge Wheelchair/Cabulance,Stretcher /Ambulance
--- NOTE | 2024-03-15 15:38 | OT.IP.TRT ---
Current Diagnoses Infection and inflammatory reaction due to internal left knee prosthesis, initial encounter (03/13/24) Surgery Performed Operation Date: 03/13/24 07:45 Actual Procedures p Explantation of left total knee arthroplasty with placement of antibiotic cement spacer(Left) - Farhan Garcia MD Occupational Therapy Treatment Note M2 OT-IP Current Condition Start: 03/14/24 10:54 Freq: Status: Active Protocol: Document 03/14/24 10:55 [facility] (Rec: 03/14/24 11:12 [facility] [id number]) Occupational Therapy Current Condition Current Condition Evaluation Date 03/14/24 Treatment Diagnosis Removal of left knee prosthesis with insertion of static spacer Weight Bearing Status Weight Bearing Status Weight Bear as Tolerated M3 OT- IP Subjective and Pain Start: 03/14/24 10:54 Freq: Status: Active Protocol: Document 03/15/24 15:38 [facility] (Rec: 03/15/24 15:48 [facility] [id number]) OT- Subjective Occupational Therapy Visit Type Type Treatment Note Visit Start Time 15:03 Visit Stop Time 15:38 Occupational Therapy Visit Comments Patient Comments Pt agreed to get up. Patient/Caregiver Goals TO get better. OT Pain Assessment Pain When Pain Assessed At Rest Pain Present Pain Present Pain Reported Location Left Knee Pain Behaviors Facial Grimacing,Holding Area M4 OT- IP ADL's Start: 03/14/24 10:54 Freq: Status: Active Protocol: Document 03/14/24 10:55 [facility] (Rec: 03/14/24 11:12 [facility] [id number]) OT [id number] Comments OT Self-Feeding Comments Not at meal time. OT ADL-Grooming Comments OT Grooming Comments Not performed. OT ADL-Oral Care Comments Oral Care Comments Not performed. OT ADL-Dressing General Eval Lower Body Dressing Ability Total Assistance Areas Needing Assistance Socks Comments OT Dressing Comments Pt not wanting the left sock on. OT ADL-Toileting General Evaluation Toileting Ability Total Assistance Areas Needing Assistance Empty Catheter or Colostomy OT ADL-Bathing Comments OT Bathing Comments Sponge bath more appropriate at this time. M5 OT- IP IADL's Start: 03/14/24 10:54 Freq: Status: Active Protocol: Document 03/14/24 10:55 [facility] (Rec: 03/14/24 11:12 [facility] [id number]) OT-Instrumental Activities of Daily Living Home Safety Awareness Awareness of Need for Assistance at Home Good Awareness Medication Management Medication Management Caregiver Administers Money Management Money Management Caregiver Provides Assistance Meal Preparation Meal Preparation Caregiver Provides Assist Architecture Manager Architecture Manager Caregiver Provides Assist M6 OT- IP Functional Cognition Start: 03/14/24 10:54 Freq: Status: Active Protocol: Document 03/15/24 15:38 [facility] (Rec: 03/15/24 15:48 [facility] [id number]) Cognitive Factors Limiting Selfcare Function Cognitive Ability Level of Alertness Alert Attention Span Ability Capable of Focused Attention, Capable of Sustained Attention Ability to Follow Commands Able to Follow One Step Commands with Increased Time, Able to Follow One Step Commands with Repetition Cognitive Comments Cognitive Assessment Comments Pt able to get his words out, but still has word finding difficulties. Pt needing step by step instructions, and increased time to process and initiate movements. M7 OT- IP Mobility and Balance Start: 03/14/24 10:54 Freq: Status: Active Protocol: Document 03/15/24 15:38 [facility] (Rec: 03/15/24 15:48 [facility] [id number]) OT- Bed Mobility Assessment Supine to Sit Supine to Sit Assist Maximum Assistance,2 Person Assistance Scooting Scooting to Edge of Bed Maximum Assistance,2 Person Assistance OT-Transfer Assessment Comments Mobility Comments MAX XA 2 to get to the edge of the bed and heavy use of the green pad to scoot forwards. Attempted to stand with MAX Ax3 and unable to come to stand at this time with the FWW. OT- Balance Assessment Sitting Balance and Reactions Static Sitting Balance Ability Poor Dynamic Sitting Balance Ability Poor Standing Balance and Reactions Static Standing Balance Ability Poor Comments Other Balance Tests/Deviations/Treatment Pt leans into posterior tilt : and heavily relies on his hands to pull himself into midline. Educated pt on using his core to lean forwards and able to hold for brief moment , but otherwise needing assist . 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 Pt also complaining of left shoulder pain during movements. OT Sensation Assessment Comments Summary Comments Intact for light touch BUE. M9 OT- IP Assessment and Plan Start: 03/14/24 10:54 Freq: Status: Active Protocol: Document 03/15/24 15:38 [facility] (Rec: 03/15/24 15:48 [facility] [id number]) OT Summary Assessment and Plan Potential Rehabilitation Potential Good Analytic Complexity at Evaluation Moderate Summary OT Impairments Pain,Range of Motion,Strength, Balance,Coordination, Functional Cognition, Functional Mobility,Self- Feeding,Grooming,Toilet Transfers,Shower Transfers, Activity Tolerance Progress Towards Goals Slow Progress due to Pain,Slow Progress due to Medical Issues,Slow Progress due to Activity Tolerance,Slow Progress due to Cognition Assessment Summary Able to work on static and dynamic balance, trunk control , bed mobility and attempted to stand with MAXA X3 to FWW Pt to go to skilled rehab when medically stable. Goals Self-Feeding Goal Standby Assistance Grooming Goal Standby Assistance Dressing Goal Moderate Assistance Toilet Transfer Goal Moderate Assistance Shower Transfer Goal Moderate Assistance OT-Other Goals Goals based on transfer pole as pt uses the poles at home. Days to Meet Goals 45 Frequency of Treatment Other frequency 5x/week Treatment Plan OT Treatment Plan ADL Training,Functional Cognition Training,Functional Mobility,Patient/Family Education,Discharge Planning Discharge Recommendations OT Discharge Recommendations SNF Rehab Transportation Needs at Discharge Stretcher/Ambulance
[2024-03-15] MEDS: DAPTOMYCIN IV (17:00)
[2024-03-15] MEDS: SODIUM CHLORIDE 0.9% IV (17:00)
[2024-03-15 20:00] VITALS: BP 106/53; PULSE 80; RESP 16; TEMP 36.7; O2SAT 98
[2024-03-15] MEDS: MELATONIN 3 MG TABLET PO (21:46)
[2024-03-15] MEDS: CALCIUM CARBONATE 500 MG TAB PO (22:23)
[2024-03-16] MEDS: NYSTATIN CREAM 30 GM 1 APPLIC TOP ×2 (01:37→14:49)
--- NOTE | 2024-03-16 07:42 | PM.PN.1 ---
Subjective Subjective Interval history: Summary: Status post removal of hardware from left knee due to chronic infection. S: He was doing well, good 0. He did have some difficulties choking on food yesterday but is doing well today. Denies any cough, or shortness a breath. Exam Vital Signs (past 8 hours): Oxygen Delivery Method Room Air Oxygen Flow Rate 0 Narrative Exam Narrative: NAD, alert and oriented. Mild expressive aphasia. Lungs are clear, normal rate and effort. Heart is regular, no murmur gallop or rub. Abdomen is soft, non distended. Extremities are free of edema. Left leg is wrapped with a knee wound VAC in place. 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) Left inguinal hernia Chronic kidney disease (CKD) stage G3a/A1, moderately decreased glomerular filtration rate (GFR) between 45-59 mL/min/1.73 square meter and albuminuria creatinine ratio less than 30 mg/g Atrial fibrillation Surgical History S/P PICC central line placement (01/31/24) H/O Spinal surgery Hx of knee surgery (01/25/24) H/O total knee replacement H/O left inguinal hernia repair (03/20/20) History of cholecystectomy H/O gastric bypass Family History Family/Other Loud snoring Dementia Father Loud snoring Obesity Hypertension Heart disease Mother Loud snoring Obesity Hypertension Depression Anxiety Family/Other Hypertension Depression Social History household members: none Smoking Status: Never smoker alcohol intake: never Assessment & Plan Assessment & Plan narrative: 1. Left infected knee hardware with strep mitis, s/p removal of hardware 03/13. Present on admission and active. -infectious diseases recommended at least 6 more weeks of IV ceftriaxone, 2 g IV daily. 2. Chronic diastolic heart failure, present on admission and stable. 3. Dysphagia with regurgitation, present on admission and chronic . 4. Persistent A-fib, present on admission and stable. -continue apixiban per orthopedics, to resume on 03/15/2023 -continue home metoprolol 50 mg daily(of note with hypotension today dose was reduced to 50 mg daily). Held home diltiazem today as well. -hold any NSAIDs -recommend sending reconciled medication list to associate pathologist at his next visit as meds at [facility] are different than currently on associate pathologist notes. 5. Hyperlipidemia. Present on admission and active. 6. GERD. Present on admission and active. - Continue pantoprazole 7. BPH. Present on admission and active. -Continue Flomax 8. CVA with residual deficits. Present on admission and stable. - wheel chair dependent, has communication deficits and word finding difficulties at baseline. PLAN: -cultures remained negative, discussed with Infectious Disease today. He will be on at least 6 more weeks of IV ceftriaxone. -continue antibiotics and plan for transfer back to [facility] at some point. He has a wound VAC in place which will be on for a short time (at least until March 28 when he was orthopedics follow up). EDMUND: 03/19 back to [facility] with wound vac. Code: Full, surrogate is patient's Son, and daughter. also note patient's spouse recently as well. DVT: Apixiban BID. Time-Based Coding :: [TOTAL MINUTES] spent with patient and on the chart (including review of chart, obtaining history, exam, reviewing outside data, placing orders, documenting exam and treatment plan, and counseling patient) on [DATE]. Quality VTE Deep Vein Thrombosis/Pulmonary Embolism Present on Admission: No
[2024-03-16 08:00] VITALS: BP 113/60; PULSE 94; RESP 19; TEMP 36.3; O2SAT 98
--- NOTE | 2024-03-16 08:47 | P.PN_ITS ---
Subjective Subjective Date Patient Seen: 03/16/24 Time Patient Seen: 08:47 Interval history: Patient found resting in bed today. States his only complaint is he had some difficulty swallowing his food last night. He does have a history of chronic dysphagia. No increased pain numbness or tingling along the wound site. Exam Vital Signs (past 8 hours): Oxygen Delivery Method Room Air Oxygen Flow Rate 0 Narrative Exam Narrative: Patient dozes in and out during visit today. Wound wound VAC of left knee is present functioning. Patient is able to dorsi flex and plantar flex against resistance left ankle. Sensation grossly intact of the left and right lower extremities. Resp Effort & Inspection: normal respiratory effort and able to speak in complete sentences Objective Labs 03/14/24 09:40 03/14/24 05:35 [facility] Medical History CVA (cerebral vascular accident) (06/10/23) Dysphagia Normal cardiac ejection fraction (06/03/23) Aortic stenosis Chronic, continuous use of opioids Iron deficiency anemia following bariatric surgery BPH w/o urinary obs/LUTS DDD (degenerative disc disease), lumbar Pacemaker (2007) Allergic rhinitis Obstructive sleep apnea, adult Obesity (BMI 30-39.9) Hyperlipidemia Fatigue due to sleep pattern disturbance GERD (gastroesophageal reflux disease) 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) Left inguinal hernia Chronic kidney disease (CKD) stage G3a/A1, moderately decreased glomerular filtration rate (GFR) between 45-59 mL/min/1.73 square meter and albuminuria creatinine ratio less than 30 mg/g Atrial fibrillation Surgical History S/P PICC central line placement (01/31/24) H/O Spinal surgery Hx of knee surgery (01/25/24) H/O total knee replacement H/O left inguinal hernia repair (03/20/20) History of cholecystectomy H/O gastric bypass Family History Family/Other Loud snoring Dementia Father Loud snoring Obesity Hypertension Heart disease Mother Loud snoring Obesity Hypertension Depression Anxiety Family/Other Hypertension Depression Social History household members: none Smoking Status: Never smoker alcohol intake: never Assessment & Plan Post-op Postoperative Procedures: Procedures Operation Date: 03/13/24 07:45 Actual Procedure Side Surgeon p Explantation of left total knee arthroplasty with placement of antibiotic cement spacer Left Farhan Garcia MD Postoperative day: 3 Postoperative plan narrative: Plan to discharge to SNF when authorized.. Patient will need a wound VAC to cover a 26 cm and a 15 cm incision. The wound VAC will need to be on until his scheduled follow up with Dr. Garcia on 03/28. It will not need to be changed, but constantly running. Discussed with hospitalist patient is now medically stable for transfer to SNF. Eliquis 5 mg b.i.d. to start today for DVT prophylaxis If he is able to bear any weight on this extremity and do any ambulation he is weight-bearing as tolerated. Ambulate with PT. Cultures have returned negative. Continue ceftriaxone 2 g every 24 hours per ID. Discussed with hospitalist to consider discontinuing daptomycin. Multi-modal pain control Eliquis 5mg bid and SCDs on while resting for DVT prevention. Time Spent With Patient Time with patient: 15-24 minutes Quality VTE Deep Vein Thrombosis/Pulmonary Embolism Present on Admission: No
[2024-03-16] MEDS: PANTOPRAZOLE DR 40 MG TABLET PO (08:54)
[2024-03-16] MEDS: OXYCODONE IR 5 MG TABLET PO ×4 (08:54→20:53)
[2024-03-16] MEDS: LORATADINE 10 MG TABLET PO (08:55)
[2024-03-16] MEDS: polyethylene glycoL 3350 17 GM POWD.PACK PO (08:55)
[2024-03-16] MEDS: DOCUSATE 100 MG CAPSULE PO ×2 (08:55→20:42)
[2024-03-16] MEDS: METOPROLOL ER 50 MG TABLET PO (08:56)
[2024-03-16] MEDS: APIXABAN 5 MG TABLET PO ×2 (09:34→20:52)
[2024-03-16] MEDS: ACETAMINOPHEN 325 MG TABLET 650 MG PO ×2 (09:34→16:25)
--- NOTE | 2024-03-16 10:25 | CM.DPNOTE ---
[employer] Received call from [employer] asking if patient is still admitted; confirmed patient still admitted. LESTER
--- NOTE | 2024-03-16 12:30 | PT.IPTN ---
Current Diagnoses Infection and inflammatory reaction due to internal left knee prosthesis, initial encounter (03/13/24) Surgery Performed Operation Date: 03/13/24 07:45 Actual Procedures p Explantation of left total knee arthroplasty with placement of antibiotic cement spacer(Left) - Farhan Garcia MD Physical Therapy Treatment Note M2 PT-IP Current Condition Start: 03/14/24 07:54 Freq: NEEDED Status: Active Protocol: Document 03/14/24 10:24 MB (Rec: 03/14/24 11:12 MB [id number]) Physical Therapy Current Condition Current Condition Evaluation Date 03/14/24 Treatment Diagnosis Left periprosthetic infection s/p removal and spacer, wound vac M3 PT-IP Subjective Start: 03/14/24 07:54 Freq: NEEDED Status: Active Protocol: Document 03/16/24 13:14 TS (Rec: 03/16/24 13:20 TS [id number]) Subjective Physical Therapy Visit Type Type Treatment Note Visit Start Time 12:30 Visit Stop Time 13:00 Number of INFLATABLE BUILDINGS LAMINATOR Visits 2 Physical Therapy Visit Comments Patient Comments pt found resting in bed, he is agreeable to PT. Therapy Pain Assessment Pain When Pain Assessed At Rest Pain Present Pain Present Pain Reported M4 PT-IP Mobility and Gait Start: 03/14/24 07:54 Freq: NEEDED Status: Active Protocol: Document 03/16/24 13:14 TS (Rec: 03/16/24 13:20 TS [id number]) PT-Bed Mobility Assessment Supine to Sit Supine to Sit Maximum Assistance,2 Person Assistance,Head of Bed Elevated,Bedrails Sit to Supine Sit to Supine Maximum Assistance,2 Person Assistance PT-Transfer Assessment Sit to and From Stand Sit to and from Stand Maximum Assistance,2 Person Assistance Comments Mobility Comments Supine to sit MaxA x2 for uprighting trunk, requires LLE supported. Pt sat on EOB, performed 5' of sitting balance with balloon toss, required cues for sitting forward. Attempted STS x1 with FWW, pt unable to come fully into standing MaxA x2. Pt was hoyered to the chair. PT-Balance Assessment Sitting Balance and Reactions Static Sitting Balance Ability Poor Dynamic Sitting Balance Ability Poor Standing Balance and Reactions Static Standing Balance Ability Poor Device Used FWW M5 PT-IP Objective Assessments Start: 03/14/24 07:54 Freq: NEEDED Status: Active Protocol: Document 03/14/24 10:24 MB (Rec: 03/14/24 11:12 MB [id number]) Orientation Orientation/Cognition Level of Alertness Alert Orientation Name,Birthday,Month,Date,Year, Day of Week,Place,Situation Language Function Ability Expressive Aphasia,Hard of Hearing Safety Awareness Decreased Safety Awareness Comments Poor ability to communicate baseline mobility, what he was doing with therapy at SNF given aphasia, good effort with PT today Gross Range of Motion Upper Extremity ROM Assessment Left Impaired Lower Extremity ROM Assessment Left Impaired Strength Upper Extremity Strength Assessment Left Impaired Lower Extremity Strength Assessment Left Impaired Comments Strength Comments No knee movement left knee and it appears locked in extension post-op, little left toe wiggling and ankle movement when asked. He also has trouble understanding cues to bend right knee and to push through foot to help scoot up in bed and roll and so in this way, right LE ROM and functional use is limited today but unclear if d/t anatomical reason or not, appears not Coordination Assessment Gross Coordination Gross Coordination Impaired Sensation Assessment Sensation Gross Sensation Left LE Impaired M6 PT-IP Treatment Start: 03/14/24 07:54 Freq: NEEDED Status: Active Protocol: Document 03/16/24 13:14 TS (Rec: 03/16/24 13:20 [id number]) Physical Therapy Treatment Education Education Provided Weight Bearing Status,Safety M7 PT-IP Assessment and Plan Start: 03/14/24 07:54 Freq: NEEDED Status: Active Protocol: Document 03/16/24 13:14 TS (Rec: 03/16/24 13:20 [id number]) PT Summary Assessment and Plan Potential Rehabilitation Potential Fair Summary Impairments Pain,ROM,Strength,Balance, Coordination,Sensation,Bed Mobility,Transfers,Gait, Activity Tolerance Progress Towards Goals Slow Progress due to Pain,Slow Progress due to Activity Tolerance Assessment Summary Pt continues to make slow progress with his mobility. He requires MaxA x2 for bed mobility. He attempted STS this session but could not fully come into standing with MaxA x2. He sat EOB and performed sitting balance with balloon toss. Pt requires constant cues for using core to sit up. PT is recommending SNF. Goals Bed Mobility Goal Contact Guard Assistance Transfer Goal Minimal Assistance,Front Wheeled Walker Gait Goal Minimal Assistance,Front Wheel Walker Gait Distance 5 Other Goals Focus on transfers such as SB or SPT this acute PT course rather than gait Pt will mobilize 75' in w/c with right arm and right leg and no more than SBA. Days to Meet Goals 10 Frequency of Treatment Frequency Of Treatment Once a Day Treatment Plan Physical Therapy Treatment Plan Bed Mobility Training,Transfer Training,Gait Training, Therapeutic Exercise,Balance Retraining,Post Op Education, Discharge Planning,Hot or Cold Pack,Neuromuscular Re-ed, Coordination Retraining,Manual Therapy Weight Bearing Status Weight Bearing Status Weight Bear as Tolerated Allowed Weight Bearing Amount (enter % LLE or #) (%) Recommendations To Nursing Amount of Assist Needed Mechanical Lift Discharge Recommendations PT Discharge Recommendations SNF Rehab Transportation Needs at Discharge Wheelchair/Cabulance,Stretcher /Ambulance
--- NOTE | 2024-03-16 13:23 | OT.IP.TRT ---
Current Diagnoses Infection and inflammatory reaction due to internal left knee prosthesis, initial encounter (03/13/24) Surgery Performed Operation Date: 03/13/24 07:45 Actual Procedures p Explantation of left total knee arthroplasty with placement of antibiotic cement spacer(Left) - Farhan Garcia MD Occupational Therapy Treatment Note M2 OT-IP Current Condition Start: 03/14/24 10:54 Freq: Status: Active Protocol: Document 03/14/24 10:55 [facility] (Rec: 03/14/24 11:12 [facility] [id number]) Occupational Therapy Current Condition Current Condition Evaluation Date 03/14/24 Treatment Diagnosis Removal of left knee prothesis with insertion of static spacer Weight Bearing Status Weight Bearing Status Weight Bear as Tolerated M3 OT- IP Subjective and Pain Start: 03/14/24 10:54 Freq: Status: Active Protocol: Document 03/16/24 13:18 [facility] (Rec: 03/16/24 13:23 [facility] [id number]) OT- Subjective Occupational Therapy Visit Type Type Treatment Note Visit Start Time 12:31 Visit Stop Time 13:00 Occupational Therapy Visit Comments Patient Comments Pt agreed to get up. Patient/Caregiver Goals TO get better. OT Pain Assessment Pain When Pain Assessed At Rest Pain Present Pain Present Pain Reported M4 OT- IP ADL's Start: 03/14/24 10:54 Freq: Status: Active Protocol: Document 03/14/24 10:55 [facility] (Rec: 03/14/24 11:12 [facility] [id number]) OT [id number] Comments OT Self-Feeding Comments Not at meal time. OT ADL-Grooming Comments OT Grooming Comments Not performed. OT ADL-Oral Care Comments Oral Care Comments Not performed. OT ADL-Dressing General Eval Lower Body Dressing Ability Total Assistance Areas Needing Assistance Socks Comments OT Dressing Comments Pt not wanting the left sock on. OT ADL-Toileting General Evaluation Toileting Ability Total Assistance Areas Needing Assistance Empty Catheter or Colostomy OT ADL-Bathing Comments OT Bathing Comments Sponge bath more appropriate at this time. M5 OT- IP IADL's Start: 03/14/24 10:54 Freq: Status: Active Protocol: Document 03/14/24 10:55 [facility] (Rec: 03/14/24 11:12 [facility] [id number]) OT-Instrumental Activities of Daily Living Home Safety Awareness Awareness of Need for Assistance at Home Good Awareness Medication Management Medication Management Caregiver Administers Money Management Money Management Caregiver Provides Assistance Meal Preparation Meal Preparation Caregiver Provides Assist Electroencephalographic Technician Electroencephalographic Technician Caregiver Provides Assist M6 OT- IP Functional Cognition Start: 03/14/24 10:54 Freq: Status: Active Protocol: Document 03/16/24 13:18 [facility] (Rec: 03/16/24 13:23 [facility] [id number]) Cognitive Factors Limiting Selfcare Function Cognitive Ability Level of Alertness Alert Attention Span Ability Capable of Focused Attention, Capable of Sustained Attention Ability to Follow Commands Able to Follow One Step Commands with Increased Time, Able to Follow One Step Commands with Repetition Cognitive Comments Cognitive Assessment Comments Pt has difficulty to process and follow commands. Pt needing increased time, vc, tactile cues to be able to follow for bed mobility needs. M7 OT- IP Mobility and Balance Start: 03/14/24 10:54 Freq: Status: Active Protocol: Document 03/16/24 13:18 [facility] (Rec: 03/16/24 13:23 [facility] [id number]) OT- Bed Mobility Assessment Supine to Sit Supine to Sit Assist Maximum Assistance,2 Person Assistance Scooting Scooting to Edge of Bed Maximum Assistance,2 Person Assistance OT-Transfer Assessment Sit to and From Stand Sit to and from Stand Maximum Assistance,Total Assistance,1 Person Assistance ,2 Person Assistance Technique Transfer Destination Bed,Chair Transfer Technique Mechanical Lift Comments Mobility Comments Pt MAX AX 2 to get to the edge of the bed and heavy use of the green pad to assist. Total assist X stand to the FWW and not able to assist much. Use of marnie lift to get to the recliner. OT- Balance Assessment Sitting Balance and Reactions Static Sitting Balance Ability Fair Dynamic Sitting Balance Ability Poor Standing Balance and Reactions Static Standing Balance Ability Poor Comments Other Balance Tests/Deviations/Treatment Able to work on static and : dynamic balance with glove blown up to work on his core strength and awareness of midline. Pt needing from close SBA to MODA for balance at times. M9 OT- IP Assessment and Plan Start: 03/14/24 10:54 Freq: Status: Active Protocol: Document 03/16/24 13:18 [facility] (Rec: 03/16/24 13:23 [facility] [id number]) OT Summary Assessment and Plan Potential Rehabilitation Potential Fair/Good Analytic Complexity at Evaluation Moderate Summary OT Impairments Pain,Range of Motion,Strength, Balance,Coordination, Functional Cognition, Functional Mobility,Self- Feeding,Grooming,Toilet Transfers,Shower Transfers, Activity Tolerance Progress Towards Goals Slow Progress due to Pain,Slow Progress due to Medical Issues,Slow Progress due to Activity Tolerance,Slow Progress due to Cognition Assessment Summary Able to work on static and dynamic balance with pt. Able to come to stand with total Ax3 to the FWW . Use of marnie lift to get to the recliner. Goals Self-Feeding Goal Standby Assistance Grooming Goal Standby Assistance Dressing Goal Moderate Assistance Toilet Transfer Goal Moderate Assistance Shower Transfer Goal Moderate Assistance OT-Other Goals Goals based on transfer pole as pt uses the poles at home. Days to Meet Goals 45 Frequency of Treatment Other frequency 5x/week Treatment Plan OT Treatment Plan ADL Training,Functional Cognition Training,Functional Mobility,Patient/Family Education,Discharge Planning Discharge Recommendations OT Discharge Recommendations SNF Rehab Transportation Needs at Discharge Stretcher/Ambulance
[2024-03-16] MEDS: dilTIAZem CD 180 MG CAP PO (14:49)
[2024-03-16] MEDS: cefTRIAXone 2,000 MG in SODIUM CHLORIDE 0.9% 100 ML 200 MG IV (14:49)
--- NOTE | 2024-03-16 14:51 | CM.DPNOTE ---
SNF DCP Continued: Reviewed EMR and team rounds for pt?s medical status. Per Ortho Provider, pt cleared by both hospitalist and ortho services to discharge to SNF Rehab when available. DCP discussed pt with [facility], it is reported that insurance authorization is being processed. Pt wound vac will need to be ordered by [facility], anticipating wound vac from supplier ([facility]) to be delivered on Tuesday. DCP forwarded requested clinicals to [facility] as well as IV abx course prescribed: Ceftriaxone 2g Q24H for approximately 6 weeks. [facility] also inquired about Wound Vac notes/measurements, only forwarded information available: measurements of two incisions under current wound vac: 26cm and 15cm. Wound Vac to be removed and assessed at pt's follow up with surgeon on 03/28/24. PASRR completed and with facesheet, currently Level I. Plan: Anticipating SNF Rehab when insurance authorized and wound vac delivered, possibly Tuesday, 03/19. CM Team will continue to follow for coordination of discharge plans. AYESHA Perez
[2024-03-16] MEDS: SODIUM CHLORIDE 0.9% IV (16:27)
[2024-03-16] MEDS: DAPTOMYCIN IV (16:27)
[2024-03-16] MEDS: MELATONIN 3 MG TABLET PO (20:42)
[2024-03-16 21:20] VITALS: BP 102/60; PULSE 71; RESP 18; TEMP 36.3; O2SAT 98
[2024-03-17 08:00] VITALS: BP 103/61; PULSE 102; RESP 19; TEMP 36.2; O2SAT 95
--- NOTE | 2024-03-17 08:15 | PM.PN.1 ---
Subjective Subjective Interval history: S: He was doing well today. No pain issues. He was no difficulties with breathing. Exam Vital Signs (past 8 hours): Oxygen Delivery Method Room Air Oxygen Flow Rate 0 Narrative Exam Narrative: NAD, alert and oriented. Fluent speech. Lungs are clear, normal rate and effort. Heart is regular, no murmur gallop or rub. Abdomen is soft, non distended. Extremities are free of edema. The left leg is wrapped in a wound VAC is in place at the knee. 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 (08/25/20) Left inguinal hernia Chronic kidney disease (CKD) stage G3a/A1, moderately decreased glomerular filtration rate (GFR) between 45-59 mL/min/1.73 square meter and albuminuria creatinine ratio less than 30 mg/g Atrial fibrillation Surgical History S/P PICC central line placement (01/31/24) H/O Spinal surgery Hx of knee surgery (01/25/24) H/O total knee replacement H/O left inguinal hernia repair (03/20/20) History of cholecystectomy H/O gastric bypass Family History Family/Other Loud snoring Dementia Father Loud snoring Obesity Hypertension Heart disease Mother Loud snoring Obesity Hypertension Depression Anxiety Family/Other Hypertension Depression Social History household members: none Smoking Status: Never smoker alcohol intake: never Assessment & Plan Assessment & Plan narrative: 1. Left infected knee hardware with strep mitis, s/p removal of hardware 03/13. Present on admission and active. -infectious diseases recommended at least 6 more weeks of IV ceftriaxone, 2 g IV daily. 2. Chronic diastolic heart failure, present on admission and stable. 3. Dysphagia with regurgitation, present on admission and chronic . 4. Persistent A-fib, present on admission and stable. -continue apixiban per orthopedics, to resume on 03/15/2023 -continue home metoprolol 50 mg daily(of note with hypotension today dose was reduced to 50 mg daily). Held home diltiazem today as well. -hold any NSAIDs -recommend sending reconciled medication list to cement conveyor operator at his next visit as meds at [facility] are different than currently on cement conveyor operator notes. 5. Hyperlipidemia. Present on admission and active. 6. GERD. Present on admission and active. - Continue pantoprazole 7. BPH. Present on admission and active. -Continue Flomax 8. CVA with residual deficits. Present on admission and stable. - wheel chair dependent, has communication deficits and word finding difficulties at baseline. PLAN: -cultures remained negative, discussed with Infectious Disease today. He will be on at least 6 more weeks of IV ceftriaxone. -continue antibiotics and plan for transfer back to [facility] at some point. He has a wound VAC in place which will be on for a short time (at least until March 28 when he was orthopedics follow up). -had a long discussion with his infectious disease doctor today. We did send a tissue PCR his case to [facility] for analysis today. We will continue ceftriaxone and daptomycin and see with the results of the PCR are. EDMUND: 03/19 back to [facility] with wound vac. Time-Based Coding :: [TOTAL MINUTES] spent with patient and on the chart (including review of chart, obtaining history, exam, reviewing outside data, placing orders, documenting exam and treatment plan, and counseling patient) on [DATE]. Quality VTE Deep Vein Thrombosis/Pulmonary Embolism Present on Admission: No
--- NOTE | 2024-03-17 08:22 | P.PN_ITS ---
Subjective Subjective Date Patient Seen: 03/17/24 Time Patient Seen: 08:22 Interval history: Patient states he is feeling better today. He was able to get out of bed yesterday and sit in chair for a few hours. He has had no difficulty with eating since yesterday. No new pain numbness down the left leg. Denies any nausea vomiting fevers or chills. Exam Vital Signs (past 8 hours): - 03/17/24 08:00 Temperature 97.2 F L Pulse Rate 102 H Respiratory Rate 19 Blood Pressure 103/61 Pulse Oximetry 95 Oxygen Flow Rate 0 Oxygen Delivery Method Room Air Oxygen Flow Rate 0 Narrative Exam Narrative: Patient is sitting in bed comfortably upright eating breakfast. Dressing is clean dry and intact. SCDs are on. Wound VAC is functioning. Patient is able to dorsiflex and plantar flex against resistance at the ankles bilaterally. Sensation grossly intact to light touch of the lower extremities bilaterally. Nurse reports concern about skin breakdown along posterior left hip. Unable to visualize today. Resp Effort & Inspection: normal respiratory effort and able to speak in complete sentences Objective Labs 03/14/24 09:40 03/14/24 05:35 [facility] Medical History CVA (cerebral vascular accident) (06/10/23) Dysphagia Normal cardiac ejection fraction (06/03/23) Aortic stenosis Chronic, continuous use of opioids Iron deficiency anemia following bariatric surgery BPH w/o urinary obs/LUTS DDD (degenerative disc disease), lumbar Pacemaker (2007) Allergic rhinitis Obstructive sleep apnea, adult Obesity (BMI 30-39.9) Hyperlipidemia Fatigue due to sleep pattern disturbance GERD (gastroesophageal reflux disease) 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) Left inguinal hernia Chronic kidney disease (CKD) stage G3a/A1, moderately decreased glomerular filtration rate (GFR) between 45-59 mL/min/1.73 square meter and albuminuria creatinine ratio less than 30 mg/g Atrial fibrillation Surgical History S/P PICC central line placement (01/31/24) H/O Spinal surgery Hx of knee surgery (01/25/24) H/O total knee replacement H/O left inguinal hernia repair (03/20/20) History of cholecystectomy H/O gastric bypass Family History Family/Other Loud snoring Dementia Father Loud snoring Obesity Hypertension Heart disease Mother Loud snoring Obesity Hypertension Depression Anxiety Family/Other Hypertension Depression Social History household members: none Smoking Status: Never smoker alcohol intake: never Assessment & Plan Post-op Postoperative Procedures: Procedures Operation Date: 03/13/24 07:45 Actual Procedure Side Surgeon p Explantation of left total knee arthroplasty with placement of antibiotic cement spacer Left Farhan Garcia MD Postoperative day: 4 Postoperative status: doing well Postoperative plan: routine post-op care Postoperative plan narrative: Plan to discharge to SNF when authorized. Anticipating 03/18 over 03/19. Patient will need a wound VAC to cover a 26 cm and a 15 cm incision. The wound VAC will need to be on until his scheduled follow up with Dr. Garcia on 03/28. It will not need to be changed, but constantly running. If he is able to bear any weight on this extremity and do any ambulation he is weight-bearing as tolerated. Ambulate with PT. Continue ceftriaxone 2 g every 24 hours per ID. Multi-modal pain control. Eliquis 5mg bid and SCDs on while resting for DVT prevention. Ordered turning and repositioning every 2 hours to avoid tissue breakdown. Nursing staff continue to monitor during repositioning in ambulation. Time Spent With Patient Time with patient: 15-24 minutes Quality VTE Deep Vein Thrombosis/Pulmonary Embolism Present on Admission: No
[2024-03-17] MEDS: OXYCODONE IR 5 MG TABLET PO ×4 (09:44→21:22)
[2024-03-17] MEDS: PANTOPRAZOLE DR 40 MG TABLET PO (09:44)
[2024-03-17] MEDS: METOPROLOL ER 50 MG TABLET PO (09:44)
[2024-03-17] MEDS: DOCUSATE 100 MG CAPSULE PO ×2 (09:44→21:17)
[2024-03-17] MEDS: LORATADINE 10 MG TABLET PO (09:45)
[2024-03-17] MEDS: ACETAMINOPHEN 325 MG TABLET 650 MG PO ×2 (09:45→17:58)
[2024-03-17] MEDS: polyethylene glycoL 3350 17 GM POWD.PACK PO (09:45)
[2024-03-17] MEDS: dilTIAZem CD 180 MG CAP PO (09:46)
[2024-03-17] MEDS: NYSTATIN CREAM 30 GM 1 APPLIC TOP ×2 (09:47→21:22)
[2024-03-17] MEDS: APIXABAN 5 MG TABLET PO ×2 (10:01→21:17)
--- NOTE | 2024-03-17 10:50 | PT.IPTN ---
Current Diagnoses Infection and inflammatory reaction due to internal left knee prosthesis, initial encounter (03/13/24) Surgery Performed Operation Date: 03/13/24 07:45 Actual Procedures p Explantation of left total knee arthroplasty with placement of antibiotic cement spacer(Left) - Farhan Garcia MD Physical Therapy Treatment Note M2 PT-IP Current Condition Start: 03/14/24 07:54 Freq: NEEDED Status: Active Protocol: Document 03/14/24 10:24 MB (Rec: 03/14/24 11:12 MB [id number]) Physical Therapy Current Condition Current Condition Evaluation Date 03/14/24 Treatment Diagnosis Left periprosthetic infection s/p removal and spacer, wound vac M3 PT-IP Subjective Start: 03/14/24 07:54 Freq: NEEDED Status: Active Protocol: Document 03/17/24 11:30 TS (Rec: 03/17/24 11:39 TS [id number]) Subjective Physical Therapy Visit Type Type Treatment Note Visit Start Time 10:50 Visit Stop Time 11:20 Number of BIOINFORMATICS ANALYST Visits 3 Physical Therapy Visit Comments Patient Comments Pt found resting in bed, he is agreeable to PT. Therapy Pain Assessment Pain When Pain Assessed At Rest Pain Present Pain Present Pain Reported M4 PT-IP Mobility and Gait Start: 03/14/24 07:54 Freq: NEEDED Status: Active Protocol: Document 03/17/24 11:30 TS (Rec: 03/17/24 11:39 TS [id number]) PT-Bed Mobility Assessment Supine to Sit Supine to Sit Maximum Assistance,1 Person Assistance,Head of Bed Elevated,Bedrails Sit to Supine Sit to Supine Maximum Assistance,2 Person Assistance Scooting Scooting to Edge of Bed Dependent PT-Transfer Assessment Sit to and From Stand Sit to and from Stand Maximum Assistance,2 Person Assistance Comments Mobility Comments Supine to sit MaxA x1 for sitting up to EOB. Pt performs sitting balance balloon toss, pt demosntrates improved sitting balance with less UE assist. STS with FWW MaxA x2. pt continues to have posterior lean in standing. Sit to supine into bed MaxA x2. Pt rolls in bed for placement of pad. Pt wa sleft in bed, all needs met. PT-Balance Assessment Sitting Balance and Reactions Static Sitting Balance Ability Fair Dynamic Sitting Balance Ability Poor Standing Balance and Reactions Static Standing Balance Ability Poor Device Used FWW M5 PT-IP Objective Assessments Start: 03/14/24 07:54 Freq: NEEDED Status: Active Protocol: Document 03/14/24 10:24 MB (Rec: 03/14/24 11:12 MB [id number]) Orientation Orientation/Cognition Level of Alertness Alert Orientation Name,Birthday,Month,Date,Year, Day of Week,Place,Situation Language Function Ability Expressive Aphasia,Hard of Hearing Safety Awareness Decreased Safety Awareness Comments Poor ability to communicate baseline mobility, what he was doing with therapy at SNF given aphasia, good effort with PT today Gross Range of Motion Upper Extremity ROM Assessment Left Impaired Lower Extremity ROM Assessment Left Impaired Strength Upper Extremity Strength Assessment Left Impaired Lower Extremity Strength Assessment Left Impaired Comments Strength Comments No knee movement left knee and it appears locked in extension post-op, little left toe wiggling and ankle movement when asked. He also has trouble understanding cues to bend right knee and to push through foot to help scoot up in bed and roll and so in this way, right LE ROM and functional use is limited today but unclear if d/t anatomical reason or not, appears not Coordination Assessment Gross Coordination Gross Coordination Impaired Sensation Assessment Sensation Gross Sensation Left LE Impaired M6 PT-IP Treatment Start: 03/14/24 07:54 Freq: NEEDED Status: Active Protocol: Document 03/17/24 11:30 TS (Rec: 03/17/24 11:39 TS [id number]) Physical Therapy Treatment Education Education Provided Weight Bearing Status,Safety M7 PT-IP Assessment and Plan Start: 03/14/24 07:54 Freq: NEEDED Status: Active Protocol: Document 03/17/24 11:30 TS (Rec: 03/17/24 11:39 [id number]) PT Summary Assessment and Plan Potential Rehabilitation Potential Fair Summary Impairments Pain,ROM,Strength,Balance, Coordination,Sensation,Bed Mobility,Transfers,Gait, Activity Tolerance Progress Towards Goals Slow Progress due to Pain,Slow Progress due to Activity Tolerance Assessment Summary Pt continues to make slow progress with his mobility. He has better sitting balance this session with less UE support. He continues to be unable to maintain standing balance. PT continues to recommend SNF. Goals Bed Mobility Goal Contact Guard Assistance Transfer Goal Minimal Assistance,Front Wheeled Walker Gait Goal Minimal Assistance,Front Wheel Walker Gait Distance 5 Other Goals Focus on transfers such as SB or SPT this acute PT course rather than gait Pt will mobilize 75' in w/c with right arm and right leg and no more than SBA. Days to Meet Goals 10 Frequency of Treatment Frequency Of Treatment Once a Day Treatment Plan Physical Therapy Treatment Plan Bed Mobility Training,Transfer Training,Gait Training, Therapeutic Exercise,Balance Retraining,Post Op Education, Discharge Planning,Hot or Cold Pack,Neuromuscular Re-ed, Coordination Retraining,Manual Therapy Weight Bearing Status Weight Bearing Status Weight Bear as Tolerated Allowed Weight Bearing Amount (enter % LLE or #) (%) Recommendations To Nursing Amount of Assist Needed Mechanical Lift Discharge Recommendations PT Discharge Recommendations SNF Rehab Transportation Needs at Discharge Wheelchair/Cabulance,Stretcher /Ambulance
[2024-03-17] MEDS: cefTRIAXone 2,000 MG in SODIUM CHLORIDE 0.9% 100 ML 200 MG IV (13:20)
--- NOTE | 2024-03-17 15:02 | CM.DPC ---
DCP Cont: Per , consulted with ID MD Dr. Trent again today and she is requesting additional cultures to determine if Dapto also needed at d/c and cultures sent today and may take a couple days for results. Pt will d/c on Ceftriaxone for 6 weeks and now may also need Dapto. SW updated [facility] and they will work on a carve out for the Dapto in case needed at d/c and confirmed that pt has a regular woundvac and not a disposable one. AGUSTIN met bedside with pt along with MD and updated him and he remains agreeable to [facility] at d/c although he states he would also be happy staying at the hospital for the duration of his IV-Abx course but states this jokingly. Plan: SW to follow for culture results to determine if Dapto now needed as well with the Ceftriaxone at d/c and Tomas working on getting the wound vac in place. Insurance auth still pending for SNF. NEWTON Michael
[2024-03-17] MEDS: SODIUM CHLORIDE 0.9% IV (17:57)
[2024-03-17] MEDS: DAPTOMYCIN IV (17:57)
--- NOTE | 2024-03-17 19:35 | PC.NURSE ---
Pressure ulcer: Pt has been adament about not being repositioned. Yesterday he moved very little, a allyven 4x4 was found covering the area of the inner fold of the buttocks. Pt would not allow this documentation writer to remove dressing as it would take to long. He did get to the chair and a waffle cushion was given and used. This AM Lul ARROYO from surgeon's office here, CRUZ Mccarty made aware pt is refusing to reposition and for the first time got up yesterday. He did get up for several hours. A dressing was found at the fold and has probable open area. Lul discussed at length with pt about the need to move, he could potentially get another infection, ect. Pt stated he would start repositioning. After CRUZ Mccarty left he again refused repositioning. Later in the day at about 1500 he agreed to a bath and to get up to the chair. This time dressings were already in room. See record, he had one small open area prior. He still has that one, but above anus he has 4 larger open areas which are stage 2. Pt was upset over care given because Pt -> I dont really want anything done. Asked to pass on to AM staff when they do care tomorrow to take pictures and have camera ready and in the room. Scrotum and inner thighs are much improved, less red from use of nystatin cream. It was also disclosed by pt his had 2 weeks ago unexpectedly. Her is coming up and he has had to make arrangements. They were for 44 years, pt is teary as he was speaking. Pt given time to express his feeling. Pressure ulcer and grieving added to POC.
[2024-03-17] MEDS: MELATONIN 3 MG TABLET PO (21:17)
[2024-03-17 22:09] VITALS: BP 106/61; PULSE 77; RESP 18; TEMP 36.4; O2SAT 97
--- NOTE | 2024-03-18 07:29 | P.PN_ITS ---
Subjective Subjective Interval history: Hospital course: 69 year old male with PMH of CVA (in the setting of held blood thinner due to complex admission with surgical management for leg abscess), atrial fibrillation on Pradaxa, PPM placement for previous bradycardia, hypertension, hyperlipidemia, COPD, GERD, BPH and presumed infected left knee prosthesis with strep mitis frpm the end of Jan. this year. He has been on ceftriaxone since he left the hospital. He states he only has 4 days left at [facility] but has been there since his discharge from here with his leg abscess and infected hardware. I received a call from his infectious disease provider yesterday, requesting additional daptomycin in addition to continued ceftriaxone once admitted. She also requested repeat labs including CK. He underwent removal of his hardware 03/13 with orthopedics with his left leg permanently straightened. The patient has been on IV ceftriaxone and daptomycin since that time and has a wound VAC in place. The wound VAC will stay in place until orthopedics follow up on March 28. He will be going to [facility] when stable for discharge. Discussions with his infectious disease doctor, Dr. Trent, on March 17 indicated that he would need to remain on daptomycin until a tissue PCR could be sent in completed from his surgery. The lab did have specimens on hand, unfortunately they have not been frozen. These specimens were sent for bacterial PCR to [facility] on March 17. The patient remains on 2 IV antibiotics pending these results. S: He was doing fine today. Knee pain is mostly controlled. No fevers overnight. We are awaiting a PCR result on his knee tissue to further decide on which antibiotics he needs for the next 6 weeks. Exam Vital Signs (past 8 hours): Oxygen Delivery Method Room Air Oxygen Flow Rate 0 Narrative Exam Narrative: NAD, alert and oriented. Fluent speech. Lungs are clear, normal rate and effort. Heart is regular, no murmur gallop or rub. Abdomen is soft, non distended. Extremities are free of edema. Left leg is wrapped and there is a wound VAC on the knee. 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) Left inguinal hernia Chronic kidney disease (CKD) stage G3a/A1, moderately decreased glomerular filtration rate (GFR) between 45-59 mL/min/1.73 square meter and albuminuria creatinine ratio less than 30 mg/g Atrial fibrillation Surgical History S/P PICC central line placement (01/31/24) H/O Spinal surgery Hx of knee surgery (01/25/24) H/O total knee replacement H/O left inguinal hernia repair (03/20/20) History of cholecystectomy H/O gastric bypass Family History Family/Other Loud snoring Dementia Father Loud snoring Obesity Hypertension Heart disease Mother Loud snoring Obesity Hypertension Depression Anxiety Family/Other Hypertension Depression Social History household members: none Smoking Status: Never smoker alcohol intake: never Assessment & Plan Assessment & Plan narrative: 1. Left infected knee hardware with strep mitis, s/p removal of hardware 03/13. Present on admission and active. -infectious diseases recommended at least 6 more weeks of IV ceftriaxone, 2 g IV daily. 2. Chronic diastolic heart failure, present on admission and stable. 3. Dysphagia with regurgitation, present on admission and chronic . 4. Persistent A-fib, present on admission and stable. -continue apixiban per orthopedics, to resume on 03/15/2023 -continue home metoprolol 50 mg daily(of note with hypotension today dose was reduced to 50 mg daily). Held home diltiazem today as well. -hold any NSAIDs -recommend sending reconciled medication list to agency service coordinator at his next visit as meds at [facility] are different than currently on agency service coordinator notes. 5. Hyperlipidemia. Present on admission and active. 6. GERD. Present on admission and active. - Continue pantoprazole 7. BPH. Present on admission and active. -Continue Flomax 8. CVA with residual deficits (mild expressive aphasia). Present on admission and stable. - wheel chair dependent, has communication deficits and word finding difficulties at baseline. PLAN: -cultures remained negative, discussed with Infectious Disease today. He will be on at least 6 more weeks of IV ceftriaxone. -continue antibiotics and plan for transfer back to [facility] at some point. He has a wound VAC in place which will be on for a short time (at least until March 28 when he was orthopedics follow up). -had a long discussion with his infectious disease doctor today. We did send a tissue PCR his case to [facility] for analysis today. We will continue ceftriaxone and daptomycin and see with the results of the PCR are. EDMUND: 03/19 back to [facility] with wound vac. Time-Based Coding :: [TOTAL MINUTES] spent with patient and on the chart (including review of chart, obtaining history, exam, reviewing outside data, placing orders, documenting exam and treatment plan, and counseling patient) on [DATE]. Quality VTE Deep Vein Thrombosis/Pulmonary Embolism Present on Admission: No
--- NOTE | 2024-03-18 07:45 | PC.NURSE ---
Patient A & O x3, labile mood, refuses turns. Patient only allowed one turn last night for assessment and to do luis fernando care and apply cream. Buttocks with drsg C/D/I, surrounding area with redness that is blanchable. Scrotum and groin red, area cleaned and cream applied as ordered.
[2024-03-18 08:31] VITALS: BP 110/60; PULSE 80
[2024-03-18] MEDS: DOCUSATE 100 MG CAPSULE PO ×2 (08:31→21:16)
[2024-03-18] MEDS: dilTIAZem CD 180 MG CAP PO (08:31)
[2024-03-18] MEDS: METOPROLOL ER 50 MG TABLET PO (08:31)
[2024-03-18] MEDS: LORATADINE 10 MG TABLET PO (08:31)
[2024-03-18] MEDS: APIXABAN 5 MG TABLET PO ×2 (08:32→21:16)
[2024-03-18] MEDS: ACETAMINOPHEN 325 MG TABLET 650 MG PO ×3 (08:32→21:16)
[2024-03-18] MEDS: PANTOPRAZOLE DR 40 MG TABLET PO (08:32)
[2024-03-18] MEDS: NYSTATIN CREAM 30 GM 1 APPLIC TOP (08:33)
[2024-03-18] MEDS: SODIUM CHLORIDE 0.9% FLUSH 10 ML IV ×2 (08:33→17:44)
[2024-03-18 08:54] VITALS: BP 110/61; PULSE 77; RESP 19; TEMP 36.3; O2SAT 96
--- NOTE | 2024-03-18 10:39 | PM.PNPO.1 ---
Subjective Subjective Date Patient Seen: 03/18/24 Time Patient Seen: 10:39 Interval history: 69-year-old male status post explant and static antibiotic spacer left knee for chronic PJ I. Surgery with Dr. Garcia on 03/13/2024 Cultures and PCR pending. On ceftriaxone and daptomycin Eliquis for chronic AFib. Chronic weakness secondary to multiple strokes. Wound VAC on left lower extremity to -125 mmHg. Exam Vital Signs (past 8 hours): - 03/18/24 08:31 03/18/24 08:54 Temperature 97.3 F L Pulse Rate 80 77 Respiratory Rate 19 Blood Pressure 110/60 110/61 Pulse Oximetry 96 Oxygen Flow Rate 0 Oxygen Delivery Method Room Air Oxygen Flow Rate 0 Narrative Exam Narrative: Doing well, no acute distress. Wound VAC on left lower extremity working. Calf soft. Exam unchanged. 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) Left inguinal hernia Chronic kidney disease (CKD) stage G3a/A1, moderately decreased glomerular filtration rate (GFR) between 45-59 mL/min/1.73 square meter and albuminuria creatinine ratio less than 30 mg/g Atrial fibrillation Surgical History S/P PICC central line placement (01/31/24) H/O Spinal surgery Hx of knee surgery (01/25/24) H/O total knee replacement H/O left inguinal hernia repair (03/20/20) History of cholecystectomy H/O gastric bypass Family History Family/Other Loud snoring Dementia Father Loud snoring Obesity Hypertension Heart disease Mother Loud snoring Obesity Hypertension Depression Anxiety Family/Other Hypertension Depression Social History household members: none Smoking Status: Never smoker alcohol intake: never Assessment & Plan Post-op Postoperative Procedures: Procedures Operation Date: 03/13/24 07:45 Actual Procedure Side Surgeon p Explantation of left total knee arthroplasty with placement of antibiotic cement spacer Left Farhan Garcia MD Postoperative day: 5 Postoperative status: doing well Postoperative plan: routine post-op care Postoperative plan narrative: Stable postoperative appearance. Postop day 5 explant left PCI. On ceftriaxone and daptomycin. Back on his regular Eliquis for AFib. Wound VAC in place we will remain in place until 03/28/2024 just needs to be plugged into the wall. No changing. Awaiting snf dispo Time Spent With Patient Time with patient: less than 15 minutes Quality VTE Deep Vein Thrombosis/Pulmonary Embolism Present on Admission: No
--- NOTE | 2024-03-18 11:52 | PT.IPTN ---
Current Diagnoses Infection and inflammatory reaction due to internal left knee prosthesis, initial encounter (03/13/24) Surgery Performed Operation Date: 03/13/24 07:45 Actual Procedures p Explantation of left total knee arthroplasty with placement of antibiotic cement spacer(Left) - Farhan Garcia MD Physical Therapy Treatment Note M2 PT-IP Current Condition Start: 03/14/24 07:54 Freq: NEEDED Status: Active Protocol: Document 03/14/24 10:24 MB (Rec: 03/14/24 11:12 MB [id number]) Physical Therapy Current Condition Current Condition Evaluation Date 03/14/24 Treatment Diagnosis Left periprosthetic infection s/p removal and spacer, wound vac M3 PT-IP Subjective Start: 03/14/24 07:54 Freq: NEEDED Status: Active Protocol: Document 03/18/24 11:11 MB (Rec: 03/18/24 11:51 MB [id number]) Subjective Physical Therapy Visit Type Type Treatment Note Visit Start Time 11:11 Visit Stop Time 11:38 Number of BEAMSTER Visits 0 Physical Therapy Visit Comments Patient Comments Pt resting in bed and agreeable to PT. Therapy Pain Assessment Pain When Pain Assessed During Mobility Pain Present Pain Present Pain Reported Location Left Knee Intensity 5 Scale Used Numeric (0 - 10) M4 PT-IP Mobility and Gait Start: 03/14/24 07:54 Freq: NEEDED Status: Active Protocol: Document 03/18/24 11:11 MB (Rec: 03/18/24 11:51 MB [id number]) PT-Bed Mobility Assessment Supine to Sit Supine to Sit Minimal Assistance,1 Person Assistance,Head of Bed Elevated,Bedrails Sit to Supine Sit to Supine Maximum Assistance,1 Person Assistance,Bedrails PT-Transfer Assessment Comments Mobility Comments Pt hook lying upon arrival and agreeable to PT. He requires constant verbal cues and occ tactile cues and assist to move left leg and right leg in the bed to the left and to reach for HOB rail on left with right hand to help scoot out to EOB and PT raises bottom of bed bed rail and pt reaches with right hand. He con't with sacral sitting and posterior lean. Cues to push with right hand behind right hip and to hook right leg around mattress and pt cannot follow these commands. He appears to have cognitive and spatial challenges, likely post-stroke, as well as proprioceptive challenges and some inattention to the left with movement: has trouble moving across mid line to the left. Able to scoot about 2 inches to the left sitting EOB with PT pushing through right thigh blocking right foot. Max A to lift right leg into the bed d/t pt inability to follow commands and PT holds right foot into mattress with bed in Trendelenburg to scoot to HOB. Heavy use of bed rails and HOB positioning options. Left in cardiac chair position . RLE tends to rest in ER. PT-Balance Assessment Sitting Balance and Reactions Static Sitting Balance Ability Fair Dynamic Sitting Balance Ability Fair M5 PT-IP Objective Assessments Start: 03/14/24 07:54 Freq: NEEDED Status: Active Protocol: Document 03/14/24 10:24 MB (Rec: 03/14/24 11:12 MB [id number]) Orientation Orientation/Cognition Level of Alertness Alert Orientation Name,Birthday,Month,Date,Year, Day of Week,Place,Situation Language Function Ability Expressive Aphasia,Hard of Hearing Safety Awareness Decreased Safety Awareness Comments Poor ability to communicate baseline mobility, what he was doing with therapy at [facility] given aphasia, good effort with PT today Gross Range of Motion Upper Extremity ROM Assessment Left Impaired Lower Extremity ROM Assessment Left Impaired Strength Upper Extremity Strength Assessment Left Impaired Lower Extremity Strength Assessment Left Impaired Comments Strength Comments No knee movement left knee and it appears locked in extension post-op, little left toe wiggling and ankle movement when asked. He also has trouble understanding cues to bend right knee and to push through foot to help scoot up in bed and roll and so in this way, right LE ROM and functional use is limited today but unclear if d/t anatomical reason or not, appears not Coordination Assessment Gross Coordination Gross Coordination Impaired Sensation Assessment Sensation Gross Sensation Left LE Impaired M6 PT-IP Treatment Start: 03/14/24 07:54 Freq: NEEDED Status: Active Protocol: Document 03/18/24 11:11 MB (Rec: 03/18/24 11:51 MB [id number]) Physical Therapy Treatment Exercises Exercises Ankle Pumps,Gluteal Sets,Quad Sets,Heel Slides Knee ROM Measurement HS on right only Other Treatments Other Treatment Performed 10 reps each exercise, B PF tension/contracture and right LE tends to rest in ER. Pt has trouble following commands for RLE M7 PT-IP Assessment and Plan Start: 03/14/24 07:54 Freq: NEEDED Status: Active Protocol: Document 03/18/24 11:11 MB (Rec: 03/18/24 11:51 MB [id number]) PT Summary Assessment and Plan Potential Rehabilitation Potential Fair Status of Condition at Evaluation Evolving Summary Impairments Pain,ROM,Strength,Balance, Coordination,Sensation,Tone, Cognition,Bed Mobility, Transfers,Gait,Activity Tolerance Progress Towards Goals Slow Progress due to Pain,Slow Progress due to Activity Tolerance,Slow Progress - Other Assessment Summary Santiago makes a good effort with PT today. He con't to present with poor overall body movement/awareness and is unable to initiate any self- mobility as far as planning movement to EOB to the left. This includes moving right side and PT favors cognitive/ awareness challenges from stroke. His right LE rests in ER and his hip is tight and this affects ROM exercises in the bed and WB through foot in sitting for attempted lateral scooting to the left. He con' t to require heavy physical assistance for mobility. Goals Bed Mobility Goal Contact Guard Assistance Transfer Goal Minimal Assistance,Front Wheeled Walker Gait Goal Minimal Assistance,Front Wheel Walker Gait Distance 5 Other Goals Focus on transfers such as SB or SPT this acute PT course rather than gait Pt will mobilize 75' in w/c with right arm and right leg and no more than SBA. Days to Meet Goals 10 Frequency of Treatment Frequency Of Treatment Once a Day Treatment Plan Physical Therapy Treatment Plan Bed Mobility Training,Transfer Training,Gait Training, Therapeutic Exercise,Balance Retraining,Post Op Education, Discharge Planning,Hot or Cold Pack,Neuromuscular Re-ed, Coordination Retraining,Manual Therapy Weight Bearing Status Weight Bearing Status Weight Bear as Tolerated Allowed Weight Bearing Amount (enter % LLE or #) (%) Recommendations To Nursing Amount of Assist Needed Mechanical Lift Discharge Recommendations PT Discharge Recommendations SNF Rehab Transportation Needs at Discharge Wheelchair/Cabulance,Stretcher /Ambulance
[2024-03-18] MEDS: OXYCODONE IR 5 MG TABLET PO ×2 (13:16→21:17)
[2024-03-18] MEDS: cefTRIAXone 2,000 MG in SODIUM CHLORIDE 0.9% 100 ML 200 MG IV (13:16)
[2024-03-18] MEDS: DAPTOMYCIN IV (17:43)
[2024-03-18] MEDS: SODIUM CHLORIDE 0.9% IV (17:43)
[2024-03-18 20:00] VITALS: BP 105/58; PULSE 73; RESP 15; TEMP 36.4; O2SAT 95
[2024-03-18] MEDS: MELATONIN 3 MG TABLET PO (21:16)
--- NOTE | 2024-03-18 21:49 | PC.NURSE ---
Unable to do a full head to toe assessment, pt refusing to turn on his side so that his nurse can reassess his skin around his back side and or bottom. pt did let this nurse used the turn assist in the bed and turn him slightly to his left side. Bed alarm in place. Door close per patient request.
--- NOTE | 2024-03-19 07:33 | PM.PNPO.1 ---
Subjective Subjective Date Patient Seen: 03/19/24 Time Patient Seen: 08:00 Interval history: Pt sitting up in bed. Said PT 'made me do everything' yesterday. Good pain control. Still has charlton in place; he tells me the plan is to leave it in until he returns to [facility] [place]. Exam Vital Signs (past 8 hours): Oxygen Delivery Method Room Air Oxygen Flow Rate 0 Narrative Exam Narrative: 5/5 PF and DF, 0/5 EHL. Sensation to touch intact throughout LLE, calf soft and compressible. CHELLE over incisional wound VAC; VAC at 125mmHg w/ no drainage in tube or chamber. Urine clear and yellow. 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) Left inguinal hernia Chronic kidney disease (CKD) stage G3a/A1, moderately decreased glomerular filtration rate (GFR) between 45-59 mL/min/1.73 square meter and albuminuria creatinine ratio less than 30 mg/g Atrial fibrillation Surgical History S/P PICC central line placement (01/31/24) H/O Spinal surgery Hx of knee surgery (01/25/24) H/O total knee replacement H/O left inguinal hernia repair (03/20/20) History of cholecystectomy H/O gastric bypass Family History Family/Other Loud snoring Dementia Father Loud snoring Obesity Hypertension Heart disease Mother Loud snoring Obesity Hypertension Depression Anxiety Family/Other Hypertension Depression Social History household members: none Smoking Status: Never smoker alcohol intake: never Assessment & Plan Post-op Assessment and plan (1) Prosthetic joint infection: Assessment and Plan narrative: 1) Appreciate Dr Madrid and other hospitalist's help w/ this pt. In review of notes, it looks like Dr Madrid has been in contact w/ Dr Trent from [facility] infectious disease. - Pt has been receiving ceftriaxone and daptomycin IV since surgery, and it sounds like we are awaiting final word from Dr Trent as to what abx pt should receive at discharge. Spoke w/ Dr Lunsford, who will d/w Dr Trent today. Possible discharge back to [facility] [place] today if Dr Trent ok w/ pt leaving prior to PCR results. - Tissue samples were sent to for PCR on 03/17, and it takes 3-5 business days after receipt there for results. - In review of cultures done here, today the final aerobic culture from the sinus tract shows Staph epidermis; all other samples show no growth for final aerobic. - Anaerobic final cultures are still pending. - PICC line in right arm was placed prior to this admission - unsure where or when. Dressing changed on 03/16/2024. 2) Continue wound VAC to 125mmHg until f/u w/ Dr Garcia. This dressing is over closed incisions to provide support to a tenuous bridge of skin between the closed sinus tract and the midline knee. The pt does NOT require VAC changes or wound care at this time. 3) Continue Eliquis BID for VTE prophylaxis. 4) Weightbearing as tolerated to left leg. Left knee is now in a fixed position at about 15 degrees of flexion. 5) Possible discharge today pending Dr Lunsford's discussion w/ Dr Trent. Postoperative Procedures: Procedures Operation Date: 03/13/24 07:45 Actual Procedure Side Surgeon p Explantation of left total knee arthroplasty with placement of antibiotic cement spacer Left Farhan Garcia MD Postoperative day: 6 Quality VTE Deep Vein Thrombosis/Pulmonary Embolism Present on Admission: No
[2024-03-19 08:00] VITALS: BP 102/49; PULSE 77; RESP 19; TEMP 36.1; O2SAT 97
[2024-03-19] MEDS: LORATADINE 10 MG TABLET PO (09:44)
[2024-03-19] MEDS: METOPROLOL ER 50 MG TABLET PO (09:44)
[2024-03-19] MEDS: dilTIAZem CD 180 MG CAP PO (09:44)
[2024-03-19] MEDS: PANTOPRAZOLE DR 40 MG TABLET PO (09:44)
[2024-03-19] MEDS: ACETAMINOPHEN 325 MG TABLET 650 MG PO ×3 (09:52→20:58)
[2024-03-19] MEDS: OXYCODONE IR 5 MG TABLET PO ×2 (09:52→16:25)
[2024-03-19] MEDS: polyethylene glycoL 3350 17 GM POWD.PACK PO (09:52)
[2024-03-19] MEDS: APIXABAN 5 MG TABLET PO ×2 (10:00→20:59)
[2024-03-19] MEDS: DOCUSATE 100 MG CAPSULE PO ×2 (10:02→20:59)
[2024-03-19] MEDS: SODIUM CHLORIDE 0.9% FLUSH 10 ML IV ×2 (10:03→20:59)
--- NOTE | 2024-03-19 11:03 | CM.DPC ---
DCP IV-Abx Cont: Per , cultures returned and consulted Dr. Twan MAJOR MD and recommendation to discontinue to Ceftriaxone and use Dapto Q24 for up to 6 weeks. SW called [facility] admissions and updated on the IV-Abx and confirmed that carve out for Dapto will still be needed, even without the need for Ceftriaxone, and [facility] will confirm today that wound vac in place at their facility, [facility] auth for SNF obtained and carve out secured for Dapto through [facility] MCR and therefore cannot accept pt yet today. Plan: SW to follow for plan of [facility] for rehab and IV-Abx before return home alone (spouse recently ) likely or Tue once insurance auth obtained for Dapto carve out and auth for SNF and [facility] will have facility wound vac available. NEWTON Michael
--- NOTE | 2024-03-19 11:06 | DIET.CONS ---
Dietary Consultation Note Admission Date: 03/13/2024 06:21 Assessment: 69 y M admitted after left knee revision. RD screened for LOS. PMH of CKD (GFR >60 currently), CVA, CHF, and gastric bypass. 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 Spoke to RN, pt able to swallow meds/food and tolerates current diet. DFM reviewed for meal composition, avg >75% recorded PO intakes during stay. Met with pt at bedside who reports tolerating diet texture and food options. Notes when he stays at [facility] he doesn't like food options and sometimes doesn't eat all of meal. Discussed alternatives to ensure adequate intake at rehab. Pt reports no recent weight loss. Reports at [facility] he was 227 lb and more recently 233 lb. Ht: 177.8 cm Wt: 116 kg BMI: 36.6 UBW: 115.66 kg on 01/25/24, 123.377 kg on 06/03/23 (-5.5% weight loss within 10 months, non-severe) pt reports UBW of 105 kg Last BM: 03/11/24 (03/13/24 07:00) MNA: Boogie Score: 13 Diet: 03/13/24 Dinner General (Regular) Diet Diet Modifications: Food Texture: Level 7 - Regular Liquid Consistency: Level 0 - Thin Nutrition Percent Meal Consumed 100% 03/18/24 18:00 Percent Meal Consumed 100% 03/18/24 08:52 Percent Meal Consumed 75% 03/17/24 18:00 Percent Meal Consumed 100% 03/17/24 12:44 Labs: RBC 4.07 X10^6/uL (4.5-5.9) L 03/14/24 09:40 Hgb 11.1 g/dL (13.5-17.5) L 03/14/24 09:40 Hct 34.2 % (41-53) L 03/14/24 09:40 Creatinine 0.95 mg/dL (0.66-1.25) 03/14/24 05:35 Nutrition Diagnosis: Increased nutrient needs (protein) r/t healing needs aeb wound, s/p left knee revision with wound vac Interventions: 1. Virgilio trial EER: 100 g protein (1.25 g/kg per adjusted IBW per wound healing) Monitoring/Evaluations: PO intakes, diet tolerance Electronically Signed by: Marguerite Mcdonald 03/19/24 11:06 Clinical Dietitian [address] [id number]
--- NOTE | 2024-03-19 12:19 | OT.IP.TRT ---
Current Diagnoses Infection and inflammatory reaction due to unspecified internal joint prosthesis, initial encounter (03/13/24) Infection and inflammatory reaction due to internal left knee prosthesis, initial encounter (03/13/24) Surgery Performed Operation Date: 03/13/24 07:45 Actual Procedures p Explantation of left total knee arthroplasty with placement of antibiotic cement spacer(Left) - Farhan Garcia MD Occupational Therapy Treatment Note M2 OT-IP Current Condition Start: 03/14/24 10:54 Freq: Status: Active Protocol: Document 03/14/24 10:55 CCC (Rec: 03/14/24 11:12 CCC [id number]) Occupational Therapy Current Condition Current Condition Evaluation Date 03/14/24 Treatment Diagnosis Removal of left knee prothesis with insertion of static spacer Weight Bearing Status Weight Bearing Status Weight Bear as Tolerated M3 OT- IP Subjective and Pain Start: 03/14/24 10:54 Freq: Status: Active Protocol: Document 03/19/24 12:22 CGR (Rec: 03/19/24 12:36 CGR [id number]) OT- Subjective Occupational Therapy Visit Type Type Treatment Note Visit Start Time 11:57 Visit Stop Time 12:20 Notes Partial co-treat with P.T. OT Pain Assessment Pain When Pain Assessed At Rest Pain Present Pain Present Pain Reported Location Left Knee Scale Used did not rate. M4 OT- IP ADL's Start: 03/14/24 10:54 Freq: Status: Active Protocol: Document 03/19/24 12:22 CGR (Rec: 03/19/24 12:36 CGR [id number]) OT RCQ-[id number]-Luczyxv General Evaluation Self-Feeding Ability Standby Assistance Comments OT Self-Feeding Comments set up. pt states he wanted string cheese, written on board for easy communication with kitchen staff. OT ADL-Grooming Comments OT Grooming Comments not performed, lunch arrived OT ADL-Oral Care Comments Oral Care Comments not performed, lunch arrived OT ADL-Dressing General Eval Lower Body Dressing Ability Total Assistance Areas Needing Assistance Socks OT ADL-Toileting General Evaluation Toileting Ability Total Assistance Comments OT Toileting Comments charlton OT ADL-Bathing Comments OT Bathing Comments not performed M5 OT- IP IADL's Start: 03/14/24 10:54 Freq: Status: Active Protocol: Document 03/14/24 10:55 CCC (Rec: 03/14/24 11:12 CCC [id number]) OT-Instrumental Activities of Daily Living Home Safety Awareness Awareness of Need for Assistance at Home Good Awareness Medication Management Medication Management Caregiver Administers Money Management Money Management Caregiver Provides Assistance Meal Preparation Meal Preparation Caregiver Provides Assist Balling Machine Operator Balling Machine Operator Caregiver Provides Assist M6 OT- IP Functional Cognition Start: 03/14/24 10:54 Freq: Status: Active Protocol: Document 03/16/24 13:18 [facility] (Rec: 03/16/24 13:23 [facility] [id number]) Cognitive Factors Limiting Selfcare Function Cognitive Ability Level of Alertness Alert Attention Span Ability Capable of Focused Attention, Capable of Sustained Attention Ability to Follow Commands Able to Follow One Step Commands with Increased Time, Able to Follow One Step Commands with Repetition Cognitive Comments Cognitive Assessment Comments Pt has difficulty to process and follow comands. Pt needing increased time, vc, tactile cues to be able to follow for bed mobility needs. M7 OT- IP Mobility and Balance Start: 03/14/24 10:54 Freq: Status: Active Protocol: Document 03/19/24 12:22 CGR (Rec: 03/19/24 12:36 CGR [id number]) OT- Bed Mobility Assessment Supine to Sit Supine to Sit Assist Maximum Assistance,1 Person Assistance Sit to Supine Sit to Supine Assist Maximum Assistance,Total Assistance,2 Person Assistance Scooting Scooting to Edge of Bed Maximum Assistance,1 Person Assistance Scooting Up and Down in Bed Total Assistance,1 Person Assistance OT-Transfer Assessment Sit to and From Stand Sit to and from Stand Maximum Assistance,2 Person Assistance Technique Transfer Destination Bed Devices Transfer Assistive Devices Gait Belt,Front Wheeled Walker Comments Mobility Comments Attempted to stand x2 but unable to extend the R leg fully into standing. OT- Gait Assessment Comments Gait Ability Comments not performed OT- Balance Assessment Sitting Balance and Reactions Static Sitting Balance Ability Good Dynamic Sitting Balance Ability Good M8 OT- IP Objective Assessments Start: 03/14/24 10:54 Freq: Status: Active Protocol: Document 03/14/24 10:55 [facility] (Rec: 03/14/24 11:12 [facility] [id number]) OT Gross Range of Motion Upper Extremity Range of Motion Assessment Left Impaired OT Strength Upper Extremity Strength Assessment Left Impaired Comments Strength Comments 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 Pt also complaining of left shoulder pain during movements. OT Sensation Assessment Comments Summary Comments Intact for light touch BUE. M9 OT- IP Assessment and Plan Start: 03/14/24 10:54 Freq: Status: Active Protocol: Document 03/19/24 12:22 CGR (Rec: 03/19/24 12:36 CGR [id number]) OT Summary Assessment and Plan Potential Rehabilitation Potential Good Analytic Complexity at Evaluation Moderate Summary OT Impairments Pain,Range of Motion,Strength, Balance,Coordination, Functional Cognition, Functional Mobility,Self- Feeding,Grooming,Toilet Transfers,Shower Transfers, Activity Tolerance Progress Towards Goals Slow Progress due to Pain,Slow Progress due to Medical Issues,Slow Progress due to Activity Tolerance,Slow Progress due to Cognition Assessment Summary Bed mobility and attempted sit to stand x2 but wasn't able to fully stand. Pt will continue to benefit from therapy services. Goals Self-Feeding Goal Standby Assistance Grooming Goal Standby Assistance Dressing Goal Moderate Assistance Toilet Transfer Goal Moderate Assistance Shower Transfer Goal Moderate Assistance OT-Other Goals Goals based on transfer pole as pt uses the poles at home. Days to Meet Goals 45 Frequency of Treatment Other frequency 5x/week Treatment Plan OT Treatment Plan ADL Training,Functional Cognition Training,Functional Mobility,Patient/Family Education,Discharge Planning Discharge Recommendations OT Discharge Recommendations SNF Rehab Transportation Needs at Discharge Stretcher/Ambulance
--- NOTE | 2024-03-19 12:31 | PT.IPTN ---
Current Diagnoses Infection and inflammatory reaction due to unspecified internal joint prosthesis, initial encounter (03/13/24) Infection and inflammatory reaction due to internal left knee prosthesis, initial encounter (03/13/24) Surgery Performed Operation Date: 03/13/24 07:45 Actual Procedures p Explantation of left total knee arthroplasty with placement of antibiotic cement spacer(Left) - Farhan Garcia MD Physical Therapy Treatment Note M2 PT-IP Current Condition Start: 03/14/24 07:54 Freq: NEEDED Status: Active Protocol: Document 03/14/24 10:24 MB (Rec: 03/14/24 11:12 MB [id number]) Physical Therapy Current Condition Current Condition Evaluation Date 03/14/24 Treatment Diagnosis Left periprosthetic infection s/p removal and spacer, wound vac M3 PT-IP Subjective Start: 03/14/24 07:54 Freq: NEEDED Status: Active Protocol: Document 03/19/24 11:57 MB (Rec: 03/19/24 12:31 MB [id number]) Subjective Physical Therapy Visit Type Type Treatment Note Visit Start Time 11:57 Visit Stop Time 12:20 Number of LOCKSTITCH WAISTLINE JOINER Visits 0 Physical Therapy Visit Comments Patient Comments Pt resting in bed and states that he had pain in left lateral leg yesterday after mobilizing in bed with just PT assistance. Therapy Pain Assessment Pain When Pain Assessed During Mobility Pain Present Pain Present Pain Reported Location Left Knee Scale Used Not rated M4 PT-IP Mobility and Gait Start: 03/14/24 07:54 Freq: NEEDED Status: Active Protocol: Document 03/19/24 11:57 MB (Rec: 03/19/24 12:31 MB [id number]) PT-Bed Mobility Assessment Supine to Sit Supine to Sit Maximum Assistance,1 Person Assistance,Head of Bed Elevated,Bedrails Sit to Supine Sit to Supine Maximum Assistance,2 Person Assistance Scooting Scooting to Edge of Bed Maximum Assistance,Dependent PT-Transfer Assessment Comments Mobility Comments HOB increased, use of various rails and pad to help scoot out to EOB today, PT holds right foot and bed in Trendelenburg and use of right hand on HOB rail to help scoot up to HOB and then +2 dependent to roll to right to place sacral cushion under hips and to get fully up to HOB before placing in cardiac chair position. Attempted STS x2 with +2 max A and RW and pt has trouble leaning and shifting weight forward and he cannot reach standing PT-Balance Assessment Sitting Balance and Reactions Static Sitting Balance Ability Fair Dynamic Sitting Balance Ability Poor M5 PT-IP Objective Assessments Start: 03/14/24 07:54 Freq: NEEDED Status: Active Protocol: Document 03/14/24 10:24 MB (Rec: 03/14/24 11:12 MB [id number]) Orientation Orientation/Cognition Level of Alertness Alert Orientation Name,Birthday,Month,Date,Year, Day of Week,Place,Situation Language Function Ability Expressive Aphasia,Hard of Hearing Safety Awareness Decreased Safety Awareness Comments Poor ability to communicate baseline mobility, what he was doing with therapy at [facility] given aphasia, good effort with PT today Gross Range of Motion Upper Extremity ROM Assessment Left Impaired Lower Extremity ROM Assessment Left Impaired Strength Upper Extremity Strength Assessment Left Impaired Lower Extremity Strength Assessment Left Impaired Comments Strength Comments No knee movement left knee and it appears locked in extension post-op, little left toe wiggling and ankle movement when asked. He also has trouble understanding cues to bend right knee and to push through foot to help scoot up in bed and roll and so in this way, right LE ROM and functional use is limited today but unclear if d/t anatomical reason or not, appears not Coordination Assessment Gross Coordination Gross Coordination Impaired Sensation Assessment Sensation Gross Sensation Left LE Impaired M6 PT-IP Treatment Start: 03/14/24 07:54 Freq: NEEDED Status: Active Protocol: Document 03/18/24 11:11 MB (Rec: 03/18/24 11:51 MB [id number]) Physical Therapy Treatment Exercises Exercises Ankle Pumps,Gluteal Sets,Quad Sets,Heel Slides Knee ROM Measurement HS on right only Other Treatments Other Treatment Performed 10 reps each exercise, B PF tension/contracture and right LE tends to rest in ER. Pt has trouble following commands for RLE M7 PT-IP Assessment and Plan Start: 03/14/24 07:54 Freq: NEEDED Status: Active Protocol: Document 03/19/24 11:57 MB (Rec: 03/19/24 12:31 MB [id number]) PT Summary Assessment and Plan Potential Rehabilitation Potential Fair Status of Condition at Evaluation Evolving Summary Impairments Pain,ROM,Strength,Balance, Coordination,Sensation,Tone, Cognition,Bed Mobility, Transfers,Gait,Activity Tolerance Progress Towards Goals Slow Progress due to Pain,Slow Progress due to Activity Tolerance,Slow Progress - Other Assessment Summary Santiago con't to make a good effort with PT. He requires max A for supine to sit with HOB increased and use of rails and +2 assist to get back to bed when he cannot stand. Ongoing communicative and body awareness challenges post- stroke and trouble initiating movements with right limbs and crossing midline to the left. Goals Bed Mobility Goal Contact Guard Assistance Transfer Goal Minimal Assistance,Front Wheeled Walker Gait Goal Minimal Assistance,Front Wheel Walker Gait Distance 5 Other Goals Focus on transfers such as SB or SPT this acute PT course rather than gait Pt will mobilize 75' in w/c with right arm and right leg and no more than SBA. Days to Meet Goals 10 Frequency of Treatment Frequency Of Treatment Once a Day Treatment Plan Physical Therapy Treatment Plan Bed Mobility Training,Transfer Training,Gait Training, Therapeutic Exercise,Balance Retraining,Post Op Education, Discharge Planning,Hot or Cold Pack,Neuromuscular Re-ed, Coordination Retraining,Manual Therapy Weight Bearing Status Weight Bearing Status Weight Bear as Tolerated Allowed Weight Bearing Amount (enter % LLE or #) (%) Recommendations To Nursing Amount of Assist Needed Mechanical Lift Discharge Recommendations PT Discharge Recommendations SNF Rehab Transportation Needs at Discharge Wheelchair/Cabulance,Stretcher /Ambulance
[2024-03-19] MEDS: DAPTOMYCIN IV (18:07)
[2024-03-19] MEDS: SODIUM CHLORIDE 0.9% IV (18:07)
--- NOTE | 2024-03-19 18:17 | PM.PN.1 ---
Subjective Subjective Interval history: Hospital course: 69 year old male with PMH of CVA (in the setting of held blood thinner due to complex admission with surgical management for leg abscess), atrial fibrillation on Pradaxa, PPM placement for previous bradycardia, hypertension, hyperlipidemia, COPD, GERD, BPH and presumed infected left knee prosthesis with strep mitis frpm the end of Jan. this year. He has been on ceftriaxone since he left the hospital. He states he only has 4 days left at [facility] but has been there since his discharge from here with his leg abscess and infected hardware. I received a call from his infectious disease provider yesterday, requesting additional daptomycin in addition to continued ceftriaxone once admitted. She also requested repeat labs including CK. He underwent removal of his hardware 03/13 with orthopedics with his left leg permanently straightened. The patient has been on IV ceftriaxone and daptomycin since that time and has a wound VAC in place. The wound VAC will stay in place until orthopedics follow up on March 28. He will be going to [facility] when stable for discharge. Discussions with his infectious disease doctor, Dr. Trent, on March 17 indicated that he would need to remain on daptomycin until a tissue PCR could be sent in completed from his surgery. The lab did have specimens on hand, unfortunately they have not been frozen. These specimens were sent for bacterial PCR to [facility] on March 17. The patient remains on 2 IV antibiotics pending these results. S: He was doing fine today. Knee pain is mostly controlled. No fevers overnight. Cultures with staph epidermidis, resistant to penicillin derivatives. Discussed with Dr. Trent, recommended to continue on daptomycin only. Exam Vital Signs (past 8 hours): Oxygen Delivery Method Room Air Oxygen Flow Rate 0 Narrative Exam Narrative: NAD, alert and oriented. Fluent speech. Lungs are clear, normal rate and effort. Heart is regular, no murmur gallop or rub. Abdomen is soft, non distended. Extremities are free of edema. Left leg is wrapped and there is a wound VAC on the knee. 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 (08/25/20) Left inguinal hernia Chronic kidney disease (CKD) stage G3a/A1, moderately decreased glomerular filtration rate (GFR) between 45-59 mL/min/1.73 square meter and albuminuria creatinine ratio less than 30 mg/g Atrial fibrillation Surgical History S/P PICC central line placement (01/31/24) H/O Spinal surgery Hx of knee surgery (01/25/24) H/O total knee replacement H/O left inguinal hernia repair (03/20/20) History of cholecystectomy H/O gastric bypass Family History Family/Other Loud snoring Dementia Father Loud snoring Obesity Hypertension Heart disease Mother Loud snoring Obesity Hypertension Depression Anxiety Family/Other Hypertension Depression Social History household members: none Smoking Status: Never smoker alcohol intake: never Assessment & Plan Assessment & Plan narrative: 1. Left infected knee hardware with strep mitis, s/p removal of hardware 03/13. Present on admission and active. -infectious diseases recommended at least 6 more weeks of IV ceftriaxone, 2 g IV daily. 2. Chronic diastolic heart failure, present on admission and stable. 3. Dysphagia with regurgitation, present on admission and chronic . 4. Persistent A-fib, present on admission and stable. -continue apixiban per orthopedics, to resume on 03/15/2023 -continue home metoprolol 50 mg daily(of note with hypotension today dose was reduced to 50 mg daily). Held home diltiazem today as well. -hold any NSAIDs -recommend sending reconciled medication list to content manager at his next visit as meds at [facility] are different than currently on content manager notes. 5. Hyperlipidemia. Present on admission and active. 6. GERD. Present on admission and active. - Continue pantoprazole 7. BPH. Present on admission and active. -Continue Flomax 8. CVA with residual deficits (mild expressive aphasia). Present on admission and stable. - wheel chair dependent, has communication deficits and word finding difficulties at baseline. PLAN: -cultures with L knee sinus tract staph epi, resistant to penicillins. Dr. Trent recommended daptomycin on discharge for 6 weeks at least after discussion today. Pending PCR amplification sent over the weekend, does not need to stay as an inpatient for results per Dr. Trent. -continue antibiotics and plan for transfer back to [facility] at some point. He has a wound VAC in place which will be on for a short time (at least until March 28 when he was orthopedics follow up). EDMUND: 03/19 back to [facility] with wound vac. Time-Based Coding :: [TOTAL MINUTES] spent with patient and on the chart (including review of chart, obtaining history, exam, reviewing outside data, placing orders, documenting exam and treatment plan, and counseling patient) on [DATE]. Quality VTE Deep Vein Thrombosis/Pulmonary Embolism Present on Admission: No
[2024-03-19 20:00] VITALS: BP 115/61; PULSE 91; RESP 20; TEMP 36.7; O2SAT 98
[2024-03-19] MEDS: OXYCODONE IR 10 MG TABLET PO (20:59)
[2024-03-19] MEDS: MELATONIN 3 MG TABLET PO (20:59)
[2024-03-20] MEDS: ACETAMINOPHEN 325 MG TABLET 650 MG PO ×2 (04:17→09:52)
[2024-03-20 06:26] LABS: Add Manual Diff / Slide Review NO; Basophils Absolute Auto 0 /uL (0-100); Basophils Percent Auto 0.8 % (0-2); Eosinophils Absolute Auto 200 /uL (0-450); Eosinophils Percent Auto 3.5 % (2-4); Hematocrit 29.7 % (41-53); Hemoglobin 9.9 g/dL (13.5-17.5); Lymphocytes Absolute Auto 1300 /uL (1100-4500); Lymphocytes Percent Auto 21.4 % (25-40); Mean Corpuscular HGB Conc 33.2 % (30-36); Mean Corpuscular Hemoglobin 27.7 PG (26-34); Mean Corpuscular Volume 83.5 fL (80-100); Monocytes Absolute Auto 500 /uL (0-900); Monocytes Percent Auto 8.3 % (3-14); Neutrophils Absolute Auto 4100 /uL (1500-7000); Platelet Count 190 X10^3/uL (150-400); Red Blood Cell Count 3.56 X10^6/uL (4.5-5.9); White Blood Cell Count 6.3 X10^3/uL (4.5-11.0)
[2024-03-20 06:50] LABS: Alanine Aminotransferase 30 IU/L (<50); Albumin 3.1 g/dL (3.5-5.0); Albumin Globulin Ratio 1.1 (1.0-2.8); Alkaline Phosphatase 125 U/L (38-126); Aspartate Aminotransferase 23 IU/L (17-59); BUN Creatinine Ratio 24.7 (6-22); Bilirubin Total 0.6 mg/dL (0.2-1.3); Blood Urea Nitrogen 23 mg/dL (9-20); Calcium 9.2 mg/dL (8.4-10.2); Carbon Dioxide 31 mmol/L (22-32); Chloride 100 mmol/L (98-107); Estimated Glomerular Filt Rate > 60 mL/min (>60); Globulin 2.7 g/dL (1.7-4.1); Glucose 106 mg/dL (80-110); HEMOLYSIS < 15 (0-50); Potassium 4.5 mmol/L (3.4-5.1); Sodium 134 mmol/L (137-145); Total Protein 5.8 g/dL (6.3-8.2)
[2024-03-20 06:52] LABS: C-Reactive Protein Quant 3.1 mg/dL (<1.0); Creatine Kinase 32 U/L (55-170)
[2024-03-20 07:33] LABS: Erythrocyte Sedimentation Rate 43 MM/HR (0-15)
[2024-03-20 08:00] VITALS: BP 125/70; PULSE 95; RESP 16; TEMP 36.7; O2SAT 98
--- NOTE | 2024-03-20 08:05 | PM.DS.1 ---
History of Present Illness History of Present Illness Date Patient Seen: 03/20/24 Time Patient Seen: 08:05 Chief complaint: Knee pain Narrative: Left knee pain is mild. Denies fever or chills. No nausea or vomiting Discharge Providers Provider Date of admission: 03/13/24 06:21 Discharge Date: 03/20/24 Primary care physician: Natasha Carroll MD Consults: 03/01/24 10:53 Consult to Anesthesiology Routine Comment: Consulting Provider: Anesthesiologist Reason for consultation: Surgeon request - cardiac. 03/12/24 09:20 Consult to Anesthesiology Routine Comment: Consulting Provider: Anesthesiologist Reason for consultation: Regional block for post operative pain control 03/13/24 14:04 Consult to Discharge Planning Routine Comment: Will go to SNF w/ wound VAC Consult to Occupational Therapy Evaluate & Treat Comment: Physician Instructions: Evaluate and treat Consult to Physical Therapy Evaluate & Treat Comment: Physician Instructions: postop TKA protocol 03/13/24 15:29 Consult to Hospitalist Service Routine Comment: Consulting Provider: Aaron Lunsford Reason for consultation: infection 03/19/24 08:07 Consult to Pastoral Services Routine Comment: Spouse recently, grief Discharge provider: Ryan Antonio PA-C Summary Hospital Course Discharge Diagnosis: Removal of left knee prosthesis with insertion of static spacer March 13, 2024 Interosseous administration of ceftriaxone March 13, 2024 Insertion of biodegradable calcium sulfate antibiotic beads with vancomycin and tobramycin March 13, 2024 Chronic diastolic heart failure present on admission in stable Dysphagia with regurgitation, present on admission and chronic Persistent AFib, present on admission in stable Hyperlipidemia present on admission and active GERD, present on admission and active BPH present on admission and active CVA with residual deficits, mild expressive aphasia, present on admission in stable, wheelchair dependent has communication deficits and word-finding difficulties at baseline Hospital Course: 1. Removal of left knee prosthesis with insertion of static spacer (17780) 2. Intraosseous administration of ceftriaxone (31323) 3. Insertion of biodegradable calcium sulfate antibiotic beads with vancomycin and tobramycin (69143) Same procedure as scheduled: Yes Surgeon: Farhan Garcia Concrete Rod Buster: Oralia Rushing Anesthesia Type: General and Local Operative Notes Estimated Blood Loss (mL): 300 Procedure in detail: Explantation of left total knee arthroplasty with placement of static knee spacer made from 2 tibial nails with interlocking screws and antibiotic impregnated polymethylmethacrylate using two setups - one for implant removal and one for static spacer placement Implants: 2 Tri Gen Babb Nails, both 11.5 mm in diameter with the Manuel curves cut off, connected by 2 interlocking screws (50 mm and 45 mm) Patient admitted to the hospital for left knee periprosthetic joint infection. Patient underwent above-mentioned procedure by Dr. Garcia on March 13, 2024. 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 this year. He has been on ceftriaxone since he left the hospital. He states he only has 4 days left at [facility] but has been there since his discharge from here with his leg abscess and infected hardware. I received a call from his infectious disease provider yesterday, requesting additional daptomycin in addition to continued ceftriaxone once admitted. She also requested repeat labs including CK. He underwent removal of his hardware today with orthopedics with his left leg permanently straightened. He denies any complaints today, though it does take some time with his word finding difficulties. His recently . His surrogate maker is his daughter and son. Cultures with staph epidermidis, resistant to penicillin derivatives. Discussed with Dr. Trent, recommended to continue on daptomycin only. Patient has remained stable. Lamas catheter will be discontinued today. He is on Flomax and we will continue on Flomax for BPH. If any urinary retention prior to leaving to correction facility the Lamas catheter will need to be replaced and he will need to follow-up with urology at some point. His chronic diastolic heart failure present on admission and stable. Dysphagia with regurgitation which was present on admission and chronic. Persistent AFib per hospitalist present on admission stable continue apixaban. Continue home metoprolol 50 mg daily and home diltiazem. Patient has not have NSAIDs. Recommend sending reconciled medication list to chemical waste management technician. Hyperlipidemia present on admission active. GERD present on admission active, continue pantoprazole. CVA with residual deficits, mild expressive aphasia, wheelchair dependent has communication deficits and word-finding difficulties at baseline. Dr. Trent following cultures. The patient's mobility is unfortunately essentially non-existent because of his stroke. If he is able to bear any weight on this extremity and do any ambulation he is weight-bearing as tolerated however I do not anticipate that he will make any functional progress with regards to ambulation. Wound VAC to remain in place until follow up on March [address] Garcia. Discharge to correction facility today. Status at Discharge Cognitive/behavioral status at discharge: at baseline, oriented Functional status at discharge: wheelchair bound Overall status at discharge: patient is progressing back to baseline Exam Vital Signs (past 8 hours): Oxygen Delivery Method Room Air Oxygen Flow Rate 0 Narrative Exam Narrative: 5/5 PF and DF, 0/5 EHL. Sensation to touch intact throughout LLE, calf soft and compressible. CHELLE over incisional wound VAC; VAC at 125mmHg w/ no drainage in tube or chamber. Const General: cooperative and comfortable Nutritional Appearance: average body habitus Orientation: alert Resp Effort & Inspection: normal respiratory effort Objective Labs 03/20/24 05:40 03/20/24 05:40 Labs: Laboratory Results - last 24 hr 03/20/24 05:40 WBC 6.3 RBC 3.56 L Hgb 9.9 L Hct 29.7 L MCV 83.5 MCH 27.7 MCHC 33.2 RDW 15.0 H Plt Count 190 Neut % (Auto) 66.0 Lymph % (Auto) 21.4 L [place] % (Auto) 8.3 Eos % (Auto) 3.5 Baso % (Auto) 0.8 Neut # (Auto) 4100 Lymph # (Auto) 1300 [place] # (Auto) 500 Eos # (Auto) 200 Baso # (Auto) 0 ESR 43 H Sodium 134 L Potassium 4.5 Chloride 100 Carbon Dioxide 31 BUN 23 H Creatinine 0.93 Estimated GFR > 60 BUN/Creatinine Ratio 24.7 H Glucose 106 Calcium 9.2 Total Bilirubin 0.6 AST 23 ALT 30 Alkaline Phosphatase 125 Total Creatine Kinase 32 L C-Reactive Protein 3.1 H Total Protein 5.8 L Albumin 3.1 L Globulin 2.7 Albumin/Globulin Ratio 1.[address] RUN DATE: 03/20/24 Specimen Inquiry PAGE 1 RUN TIME: 823 Name: Yared Houston Age/Sex: 69/M Attend Dr: Farhan Garcia MD Unit#: [id number] : 1955Location: AC 216-1 Re03/13/24 Disch: Status: ADM IN SPEC #: [id number] EVA: 03/13/2459 STATUS: RES REQ #: [id number] SPDESC: RECD: 03/13/24-[address]: Farhan Garcia MD SOURCE: Knee Lt ENTR: 03/13/24-[address]: Natasha Carroll MD FAX TO: ORDERED: WOUND Cx and GS COMMENTS: Comment left knee sinus tract Procedure Result Verified Site Gram Stain Final 03/13/24-1325 No cells/ Organisms seen No cells or organisms seen Aerobic Culture for wounds Final 03/19/24-0714 Organism 1 Staphylococcus epidermidis Growth SCANT Action to follow Identification and Sensitivity to Follow ISOLATED FROM ENRICHMENT BROTH ONLY 1. Staphylococcus epidermidis M.I.C. RX --------- --- * Vancomycin 1 S * Ciprofloxacin >=8 R * Erythromycin >=8 R * Gentamicin <=0.5 S * Levofloxacin >=8 R * Linezolid 2 S * Moxifloxacin 4 I * Oxacillin Arvind >=4 R * Rifampin <=0.5 S * Tetracycline 2 S Anaerobic Culture Preliminary 03/15/24-0942 No growth. 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) Left inguinal hernia Chronic kidney disease (CKD) stage G3a/A1, moderately decreased glomerular filtration rate (GFR) between 45-59 mL/min/1.73 square meter and albuminuria creatinine ratio less than 30 mg/g Atrial fibrillation Surgical History S/P PICC central line placement (01/31/24) H/O Spinal surgery Hx of knee surgery (01/25/24) H/O total knee replacement H/O left inguinal hernia repair (03/20/20) History of cholecystectomy H/O gastric bypass Family History Family/Other Loud snoring Dementia Father Loud snoring Obesity Hypertension Heart disease Mother Loud snoring Obesity Hypertension Depression Anxiety Family/Other Hypertension Depression Social History household members: none Smoking Status: Never smoker alcohol intake: never Discharge Assessment & Plan Assessment and Plan Assessment: Stable Plan of Treatment: Continue daptomycin Dr. Trent, watch for final PCR results Continue Eliquis for DVT prophylaxis Persistent AFib continue on home meds, metoprolol and diltiazem, recommend following up with his chemical waste management technician at some point BPH continue Flomax, follow up with urologist Avoid NSAIDs The patient's mobility is unfortunately essentially non-existent because of his stroke. If he is able to bear any weight on this extremity and do any ambulation he is weight-bearing as tolerated however I do not anticipate that he will make any functional progress with regards to ambulation. Continue wound VAC until follow up with Dr. Garcia on March 28, 2024 Discharge to correction facility today. Discharge Plan Discharge Plan Patient Disposition: SNF Transfer to: [facility] Discharge orders & Medications Prescriptions: New metoprolol succinate 50 mg Tablet Extended Release 24 Hr 50 mg PO DAILY Qty: 30 0RF pantoprazole 40 mg Tablet,Delayed Release (Dr/Ec) 40 mg PO DAILY Qty: 30 0RF nitroglycerin [Nitrostat] 0.4 mg Tablet, Sublingual 0.4 mg sublingual Q5M PRN (Reason: Chest Pain) Qty: 10 0RF daptomycin in 0.9 % sod chlor 700 mg/100 mL piggyback 696 mg IV Q24H Rx Instructions: administer over 30 mins polyethylene glycol 3350 17 gram Powder In Packet 17 gm PO DAILY PRN (Reason: Constipation) Qty: 30 0RF docusate sodium 100 mg Capsule 100 mg PO BID Qty: 30 0RF oxycodone 5 mg Tablet 5 mg PO Q3H PRN (Reason: Pain, Moderate (4-6)) Qty: 60 0RF Continued atorvastatin 10 mg tablet 10 mg PO DAILY pantoprazole 40 MG tablet,delayed release (DR/EC) 40 mg PO QDAY Qty: 0 Eliquis 5 mg tablet 5 mg PO BID diltiazem HCl 180 mg capsule,extended release 24hr 180 mg PO DAILY cetirizine 10 mg tablet 10 mg PO DAILY nystatin 100,000 unit/gram cream 1 applic topical BID acetaminophen 325 mg Tablet 975 mg PO Q6H PRN (Reason: Fever/Mild Pain (1-3)) Qty: 90 0RF cyclobenzaprine 10 mg tablet 10 mg PO 3XD PRN (Reason: msk pain) metoprolol succinate 100 mg tablet extended release 24 hr 100 mg PO DAILY melatonin 3 mg Tablet 3 mg PO BEDTIME Discontinued oxycodone 5 mg Tablet 5 mg PO Q4-6H PRN (Reason: Pain, Moderate (4-6)) Qty: 30 0RF ceftriaxone 2 gram Recon Soln 2 g IV DAILY Follow up/Referrals: Farhan Garcia MD [Physician] - 03/28/24 8:10 am ([facility] office in [place]) Natasha Carroll MD [Primary Care Provider] - Discharge Health Status Multidrug resistant organism: Other Diet/Activity/Treatments Diet: Diet as Tolerated Activity: Weightbearing as tolerated to left leg. Left knee is fixed in a slightly flexed position; it will not flex or extend further. Cold/Heat Therapy: Ice to knee as needed for pain. Skin/Wound/Dressing Care Report to your healthcare provider any signs of infection, such as:: chills, fever, night sweats, unusual drainage and unusual redness Dressing: There is a wound VAC placed over the pts incision. This should not be changed and should stay in place until f/u in office w/ Dr Garcia. Remain at 125mmHg. Special Rehabilitation Services Reason for rehabilitation: Post-operative therapy Rehab type: Physical therapy and Occupational therapy Visit Report/Discharge Packet Instructions: DI for Knee Replacement, DI for Constipation, How to Prevent Falls, DI for Prescription Opioid Use Stand Alone Forms: Patient Portal/API, Surgery Discharge Discharge Data Primary Care Provider: Natasha Carroll VTE Deep Vein Thrombosis/Pulmonary Embolism Present on Admission: No
[2024-03-20 08:32] VITALS: BP 125/70; PULSE 81
[2024-03-20] MEDS: DOCUSATE 100 MG CAPSULE PO (08:32)
[2024-03-20] MEDS: PANTOPRAZOLE DR 40 MG TABLET PO (08:32)
[2024-03-20] MEDS: METOPROLOL ER 50 MG TABLET PO (08:32)
[2024-03-20] MEDS: APIXABAN 5 MG TABLET PO (08:32)
[2024-03-20] MEDS: LORATADINE 10 MG TABLET PO (08:32)
[2024-03-20] MEDS: dilTIAZem CD 180 MG CAP PO (08:33)
[2024-03-20] MEDS: polyethylene glycoL 3350 17 GM POWD.PACK PO (08:33)
[2024-03-20] MEDS: OXYCODONE IR 10 MG TABLET PO (08:33)
[2024-03-20] MEDS: NYSTATIN CREAM 30 GM 1 APPLIC TOP (08:37)
--- NOTE | 2024-03-20 11:10 | PT.IPTN ---
Current Diagnoses Infection and inflammatory reaction due to unspecified internal joint prosthesis, initial encounter (03/13/24) Infection and inflammatory reaction due to internal left knee prosthesis, initial encounter (03/13/24) Surgery Performed Operation Date: 03/13/24 07:45 Actual Procedures p Explantation of left total knee arthroplasty with placement of antibiotic cement spacer(Left) - Farhan Garcia MD Physical Therapy Treatment Note M2 PT-IP Current Condition Start: 03/14/24 07:54 Freq: NEEDED Status: Active Protocol: Document 03/14/24 10:24 MB (Rec: 03/14/24 11:12 MB [id number]) Physical Therapy Current Condition Current Condition Evaluation Date 03/14/24 Treatment Diagnosis Left periprosthetic infection s/p removal and spacer, wound vac M3 PT-IP Subjective Start: 03/14/24 07:54 Freq: NEEDED Status: Active Protocol: Document 03/20/24 11:33 TS (Rec: 03/20/24 11:39 TS [id number]) Subjective Physical Therapy Visit Type Type Treatment Note Visit Start Time 11:10 Visit Stop Time 11:33 Number of METALIZING SUPERVISOR Visits 1 Physical Therapy Visit Comments Patient Comments Pt found resting in bed, he is agreeable to PT. Therapy Pain Assessment Pain When Pain Assessed During Mobility Pain Present Pain Present Pain Reported M4 PT-IP Mobility and Gait Start: 03/14/24 07:54 Freq: NEEDED Status: Active Protocol: Document 03/20/24 11:33 TS (Rec: 03/20/24 11:39 TS [id number]) PT-Bed Mobility Assessment Supine to Sit Supine to Sit Maximum Assistance,1 Person Assistance,Head of Bed Elevated,Bedrails Scooting Scooting to Edge of Bed Maximum Assistance,Dependent PT-Transfer Assessment Sit to and From Stand Sit to and from Stand Maximum Assistance,2 Person Assistance Equipment Transfer Assistive Device Gait Belt,Front Wheeled Walker Comments Mobility Comments Supine to sit MaxA for uprighting trunk and LE assistance, pt dmeonstrates increased quad act in LLE. He requires MaxA for scooting to EOB with use of transfer pad. STS with FWW x3 for placement of brief. Pt was hoyered to the chair. Pt was left with nursing. PT-Balance Assessment Sitting Balance and Reactions Static Sitting Balance Ability Fair Dynamic Sitting Balance Ability Poor Standing Balance and Reactions Static Standing Balance Ability Poor Device Used FWW M5 PT-IP Objective Assessments Start: 03/14/24 07:54 Freq: NEEDED Status: Active Protocol: Document 03/14/24 10:24 MB (Rec: 03/14/24 11:12 MB [id number]) Orientation Orientation/Cognition Level of Alertness Alert Orientation Name,Birthday,Month,Date,Year, Day of Week,Place,Situation Language Function Ability Expressive Aphasia,Hard of Hearing Safety Awareness Decreased Safety Awareness Comments Poor ability to communicate baseline mobility, what he was doing with therapy at [facility] given aphasia, good effort with PT today Gross Range of Motion Upper Extremity ROM Assessment Left Impaired Lower Extremity ROM Assessment Left Impaired Strength Upper Extremity Strength Assessment Left Impaired Lower Extremity Strength Assessment Left Impaired Comments Strength Comments No knee movement left knee and it appears locked in extension post-op, little left toe wiggling and ankle movement when asked. He also has trouble understanding cues to bend right knee and to push through foot to help scoot up in bed and roll and so in this way, right LE ROM and functional use is limited today but unclear if d/t anatomical reason or not, appears not Coordination Assessment Gross Coordination Gross Coordination Impaired Sensation Assessment Sensation Gross Sensation Left LE Impaired M6 PT-IP Treatment Start: 03/14/24 07:54 Freq: NEEDED Status: Active Protocol: Document 03/18/24 11:11 MB (Rec: 03/18/24 11:51 MB [id number]) Physical Therapy Treatment Exercises Exercises Ankle Pumps,Gluteal Sets,Quad Sets,Heel Slides Knee ROM Measurement HS on right only Other Treatments Other Treatment Performed 10 reps each exercise, B PF tension/contracture and right LE tends to rest in ER. Pt has trouble following commands for RLE M7 PT-IP Assessment and Plan Start: 03/14/24 07:54 Freq: NEEDED Status: Active Protocol: Document 03/20/24 11:33 TS (Rec: 03/20/24 11:39 TS [id number]) PT Summary Assessment and Plan Potential Rehabilitation Potential Fair Summary Impairments Pain,ROM,Strength,Balance, Coordination,Sensation,Tone, Cognition,Bed Mobility, Transfers,Gait,Activity Tolerance Progress Towards Goals Slow Progress due to Pain,Slow Progress due to Activity Tolerance,Slow Progress - Other Assessment Summary Santiago continues to make slow progress with his mobility. He requires MaxA 1-2PA for bed mobility. He continues to be unable to stand fully with MaxA x2 PA. Pt remains a marnie lift. PT is recommending SNF rehab. Goals Bed Mobility Goal Contact Guard Assistance Transfer Goal Minimal Assistance,Front Wheeled Walker Gait Goal Minimal Assistance,Front Wheel Walker Gait Distance 5 Other Goals Focus on transfers such as SB or SPT this acute PT course rather than gait Pt will mobilize 75' in w/c with right arm and right leg and no more than SBA. Days to Meet Goals 10 Frequency of Treatment Frequency Of Treatment Once a Day Treatment Plan Physical Therapy Treatment Plan Bed Mobility Training,Transfer Training,Gait Training, Therapeutic Exercise,Balance Retraining,Post Op Education, Discharge Planning,Hot or Cold Pack,Neuromuscular Re-ed, Coordination Retraining,Manual Therapy Weight Bearing Status Weight Bearing Status Weight Bear as Tolerated Allowed Weight Bearing Amount (enter % LLE or #) (%) Recommendations To Nursing Amount of Assist Needed Mechanical Lift Discharge Recommendations PT Discharge Recommendations SNF Rehab Transportation Needs at Discharge Wheelchair/Cabulance,Stretcher /Ambulance
--- NOTE | 2024-03-20 12:52 | CM.DPC ---
DCP Cont. Reviewed EMR and team rounds for status updates. Pt has been medically cleared for SNF rehab d/c, they will transport him today at 1:00pm. Per [facility], they will have the wound vac delivered this afternoon. Faxed scripts, PASSAR and clinicals to [facility]. No further CM needs are identified at this time.
--- NOTE | 2024-03-20 13:28 | PC.NURSE ---
Patient is A&Ox4. VSS, afebrile on RA. Wound vac to RLE C/D/I w/o any drainage today. Patient is cleared for discharge and charlton catheter removal at 0900. He is able to void without difficulty multiple times using urinal. He works with PT today and is unable to stand with max x2 assist. He is held up for a few seconds and then sling placed under him to marnie lift to chair. He is able to sit in the chair for a couple of hours and tolerates this well. Report called to Tomas, to [facility]. Informed that their are orders not to remove woundvac until patient has follow up appt on 03/28 at 0800 a.m. with MD Garcia. Per [facility] is unable to keep wound vac disconnected >2 hrs and will pack wet to dry until their woundvac arrives between 1600 -1700. Patient is transported via his own w/ch with all of his belongings by facility designee at approximately 1320 this afternoon.
== END 2024-03-20 13:25 | DRG 464 ==
PROVIDERS: Hospitalist; Internal Medicine; Admitting Provider Orthopaedic Surgery Adult Reconstructive Orthopaedic Surgery; PCP Internal Medicine; Referring Provider Orthopaedic Surgery Adult Reconstructive Orthopaedic Surgery; Visit Provider Orthopaedic Surgery Adult Reconstructive Orthopaedic Surgery
PROC: 0SPD0JZ Removal of Synthetic Substitute from Left Knee Joint, Open Approach (ICD-10-PCS; principal; 2024-03-13 07:45)
DX: T84.54XA Infection and inflammatory reaction due to internal left knee prosthesis, initial encounter (principal); I48.19 Other persistent atrial fibrillation; I50.32 Chronic diastolic (congestive) heart failure; L02.416 Cutaneous abscess of left lower limb; Z16.11 Resistance to penicillins; J44.9 Chronic obstructive pulmonary disease, unspecified; T84.033A Mechanical loosening of internal left knee prosthetic joint, initial encounter; I11.0 Hypertensive heart disease with heart failure; E78.5 Hyperlipidemia, unspecified; K21.9 Gastro-esophageal reflux disease without esophagitis; N40.0 Benign prostatic hyperplasia without lower urinary tract symptoms; I69.328 Other speech and language deficits following cerebral infarction; R13.10 Dysphagia, unspecified; I95.9 Hypotension, unspecified; B95.7 Other staphylococcus as the cause of diseases classified elsewhere; Y79.2 Prosthetic and other implants, materials and accessory orthopedic devices associated with adverse incidents; Z95.0 Presence of cardiac pacemaker; Z77.22 Contact with and (suspected) exposure to environmental tobacco smoke (acute) (chronic); Z79.01 Long term (current) use of anticoagulants; Z98.84 Bariatric surgery status; Z79.891 Long term (current) use of opiate analgesic; Z99.3 Dependence on wheelchair
CPT/HCPCS: 36415; 36592; 73560; 80053; 82550; 83735; 85014; 85018; 85025; 85651; 86140; 87070; 87075; 87077; 87176; 87186; 87205; 87801; 97162; 97166; 97530; C1713; J0134; J0690; J0696; J0878; J1100; J1171; J1642; J2405; J2704; J3010; J3490; P9045

== ENCOUNTER → 2024-03-23 16:29 | Outpatient (ROUT) | payer MEDICARE, SELFPAY ==
[2024-03-13 07:00] VITALS: BMI 36.6
[2024-03-23 16:52] LABS: C-Reactive Protein Quant 2.3 mg/dL (<1.0); Creatine Kinase 52 U/L (55-170)
== END ==
PROVIDERS: PCP Internal Medicine; Visit Provider Hospitalist
DX: Z13.89 Encounter for screening for other disorder (principal)
CPT/HCPCS: 82550; 86140

== ENCOUNTER → 2024-04-14 20:28 | Outpatient (ROUT) | payer MEDICARE, SELFPAY ==
[2024-03-13 07:00] VITALS: BMI 36.6
[2024-04-14 21:35] LABS: Clostridium Difficile Tox PCR Negative for C. diff (Negative)
== END ==
PROVIDERS: PCP Internal Medicine; Visit Provider Internal Medicine Infectious Disease
DX: R19.7 Diarrhea, unspecified (principal)
CPT/HCPCS: 87493

== ENCOUNTER → 2024-05-23 16:37 | Outpatient (CLI) | payer MEDICARE, SELFPAY ==
[2024-03-13 07:00] VITALS: BMI 36.6
[2024-05-23 17:20] LABS: Add Manual Diff / Slide Review NO; Basophils Absolute Auto 100 /uL (0-100); Basophils Percent Auto 1.1 % (0-2); Eosinophils Absolute Auto 200 /uL (0-450); Eosinophils Percent Auto 4.4 % (2-4); Hematocrit 43.1 % (41-53); Hemoglobin 13.7 g/dL (13.5-17.5); Lymphocytes Absolute Auto 1100 /uL (1100-4500); Lymphocytes Percent Auto 22.6 % (25-40); Mean Corpuscular HGB Conc 31.8 % (30-36); Mean Corpuscular Hemoglobin 24.7 PG (26-34); Mean Corpuscular Volume 77.6 fL (80-100); Monocytes Absolute Auto 400 /uL (0-900); Monocytes Percent Auto 8.9 % (3-14); Neutrophils Absolute Auto 3200 /uL (1500-7000); Platelet Count 159 X10^3/uL (150-400); Red Blood Cell Count 5.56 X10^6/uL (4.5-5.9); Red Cell Distribution Width 16.3 % (11.6-14.8)
[2024-05-23 17:34] LABS: Alanine Aminotransferase 15 IU/L (<50); Albumin Globulin Ratio 1.6 (1.0-2.8); Alkaline Phosphatase 111 U/L (38-126); Aspartate Aminotransferase 21 IU/L (17-59); BUN Creatinine Ratio 19.8 (6-22); Bilirubin Total 0.5 mg/dL (0.2-1.3); Blood Urea Nitrogen 17 mg/dL (9-20); C-Reactive Protein Quant < 0.5 mg/dL (<1.0); Calcium 9.6 mg/dL (8.4-10.2); Carbon Dioxide 30 mmol/L (22-32); Chloride 102 mmol/L (98-107); Estimated Glomerular Filt Rate > 60 mL/min (>60); Globulin 2.5 g/dL (1.7-4.1); Glucose 112 mg/dL (80-110); HEMOLYSIS < 15 (0-50); Sodium 138 mmol/L (137-145); Total Protein 6.5 g/dL (6.3-8.2)
== END ==
PROVIDERS: PCP Internal Medicine; Referring Provider Internal Medicine Infectious Disease; Visit Provider Internal Medicine Infectious Disease
DX: R30.0 Dysuria (principal); T84.59XD Infection and inflammatory reaction due to other internal joint prosthesis, subsequent encounter; Z96.659 Presence of unspecified artificial knee joint
CPT/HCPCS: 36415; 80053; 85025; 86140; 87077; 87086; 87186

== ENCOUNTER 2024-06-07 14:59 | Emergency (ER) | payer MEDICARE, SELFPAY ==
[2024-03-13 07:00] VITALS: BMI 36.6
[2024-06-07] VITALS (14 sets, daily range): BP systolic 127–157; BP diastolic 73–86; PULSE 59–98; RESP 16–18; TEMP 36.9; O2SAT 94–99; BMI 32.9
[2024-06-07 15:57] LABS: Add Manual Diff / Slide Review NO; Basophils Absolute Auto 100 /uL (0-100); Eosinophils Absolute Auto 100 /uL (0-450); Eosinophils Percent Auto 1.4 % (2-4); Hematocrit 46.4 % (41-53); Hemoglobin 14.9 g/dL (13.5-17.5); Lymphocytes Absolute Auto 900 /uL (1100-4500); Lymphocytes Percent Auto 10.3 % (25-40); Mean Corpuscular Hemoglobin 24.6 PG (26-34); Mean Corpuscular Volume 76.9 fL (80-100); Monocytes Absolute Auto 800 /uL (0-900); Monocytes Percent Auto 9.4 % (3-14); Neutrophils Absolute Auto 6700 /uL (1500-7000); Neutrophils Percent Auto 77.9 % (50-75); Platelet Count 176 X10^3/uL (150-400); Red Blood Cell Count 6.04 X10^6/uL (4.5-5.9); Red Cell Distribution Width 17.3 % (11.6-14.8); White Blood Cell Count 8.6 X10^3/uL (4.5-11.0)
[2024-06-07 16:09] LABS: Alanine Aminotransferase 14 IU/L (<50); Albumin 4.3 g/dL (3.5-5.0); Albumin Globulin Ratio 1.3 (1.0-2.8); Alkaline Phosphatase 117 U/L (38-126); Aspartate Aminotransferase 28 IU/L (17-59); BUN Creatinine Ratio 18.2 (6-22); Bilirubin Total 1.1 mg/dL (0.2-1.3); Blood Urea Nitrogen 22 mg/dL (9-20); Carbon Dioxide 22 mmol/L (22-32); Chloride 104 mmol/L (98-107); Estimated Glomerular Filt Rate > 60 mL/min (>60); Globulin 3.2 g/dL (1.7-4.1); Glucose 109 mg/dL (80-110); HEMOLYSIS 36 (0-50); Lipase 78 U/L (23-300); Potassium 4.6 mmol/L (3.4-5.1); Sodium 137 mmol/L (137-145); Total Protein 7.5 g/dL (6.3-8.2)
--- NOTE | 2024-06-07 16:16 | PC.NURSE ---
>999cc noted on bladder scan; charlton place; MD Mays aware. Charlton patent and draining
[2024-06-07 16:20] LABS: Appearance Urine UA CLEAR; Bilirubin Urine UA NEGATIVE (NEGATIVE); Color Urine UA YELLOW; Glucose Urine UA NEGATIVE (Negative); Ketones Urine UA NEGATIVE (NEGATIVE); Leukocyte Esterase Urine UA NEGATIVE (NEGATIVE); Nitrite Urine UA NEGATIVE (Negative); Occult Blood Urine UA TRACE-INTACT (Negative); Protein Urine UA NEGATIVE (Negative); Urobilinogen Urine UA 0.2 E.U./dL (0.2); pH Urine UA 5.5 (4.5-8.0)
[2024-06-07 16:28] LABS: Bacteria Urine None Seen; Culture Indicated Urine Cult Not Indicated; RBC Urine 0-1/HPF (0-5/HPF); Squamous Epithelial Cell Urine None Seen (0-5/HPF); Urine Volume 10mL (spun); WBC Urine None Seen (0-5/HPF)
--- NOTE | 2024-06-07 19:03 | PC.NURSE ---
Son and pt report no urine output since last night. EMS reprots 3 days of pain---upon talking with son pain started today. Scrotum red and inflamed. Skin irritated under abdominal skin fold possibly yeast? Bladder scan reveals >999 cc in bladder. Pt reports he needs more care at home. GCS 15; however pt poor historian. Pt non ambulatory; reported marnie lift is used at home. pt non ambulatory due to chuyita in left leg?
--- NOTE | 2024-06-07 19:38 | CM.DANOTE ---
Addendum entered by NEWTON Maddox 06/07/24 20:20: ED SALES APPLICATIONS ENGINEER spoke with pt son, Kulwinder. It is reported that pt only rides with [facility] and will need BLS transport home if discharged in the middle of the night. AYESHA Perez Original Note: ED SALES APPLICATIONS ENGINEER DCP Assessment Note: Pt is a 69yo male, resident of [place], is seen in the ED for concerns of UTI. Pt lives in a house with his son, Kulwinder. Pt's Primary Care Provider is Dr. Natasha Carroll and insurance is [facility] Medicare. Reviewed chart and discussed with multidisciplinary team pt's medical status and initial discharge needs. ED SALES APPLICATIONS ENGINEER met w/patient at bedside; introduced self and role. Patient was found in bed, alert and oriented, cooperative with assessment. Patient is found to be stuttering, soft spoken and overall a poor historian. Pt confirmed living situation and good support in son. Pt expressed preference in discharging home if available. Pt has a hx of a 90-day stay at [facility] recently and has opened services with [facility] . ED SALES APPLICATIONS ENGINEER sent email to [facility] Intake team to notify of pt presenting to ED, can send completed ED summary when available. Plan: Pt to still be evaluated by ED Provider, pending possible home health resumption orders. ED team will follow closely for coordination of discharge plans. AYESHA Perez Discharge Planning/Care Management CM Discharge Assessment Start: 06/07/24 19:35 Freq: Status: Active Protocol: Document 06/07/24 19:36 MW (Rec: 06/07/24 19:37 MW [id number]) Discharge Planning Assessment Assigned Pipe Fitter Welding NEWTON Champagne DPOA/Assigned Designee Name Oumar Miramontes Contact Information [phone] Advance Directives? No Advance Directives on File No History Provided By Patient,Family Member,Medical Record Has Patient been admitted in last 30 No days? Prior Living Arrangements House Household Members children,none Comment Kulwinder Oseguera Type of transporation used prior to Drives own vehicle admit Independent with ADL's No Is patient alert and oriented? Yes Needs Assistance With Bathing,Grooming,Meal Prep, Toileting,Managing Medications ,Home Chores / Shopping Caregiver for Another No DME Already Rented / Owned Wheelchair Patient/Family Preference Home with Home Health Comment Open with [facility] Discharge Plan Home with Home Health Referrals Initiated Home Health If patient plan is home with home health No : Has signed face to face form been completed? If patient plan is SNF: Has PASSR been No completed? Review Status In Process Please Provide Date Initial DC 06/07/24 Assessment Was Performed Next Review Type Continued Stay Review
--- NOTE | 2024-06-07 21:05 | ED_ITS ---
HPI - Male Genitourinary General Chief complaint: Urogenital-Male Stated complaint: UTI Time Seen by Provider: 06/07/24 15:35 Source: patient and EMS Mode of arrival: EMS History of Present Illness HPI Narrative: Patient is 69-year-old male history of COPD atrial fibrillation on Eliquis CKD, presenting today with increasing abdominal pain. He was found to have urinary retention with greater than 1 L in his bladder. Lamas catheter replaced prior to my evaluation. Symptoms have completely resolved. He was overall a poor historian but able to answer some questions. He is on Cipro from 05/28/2024. He was afebrile. Related Data Home Medications Medication Instructions Recorded Confirmed atorvastatin 10 mg tablet 10 mg PO DAILY 01/31/23 05/11/24 apixaban 5 mg tablet (Eliquis) 5 mg PO BID 01/25/24 05/11/24 cetirizine 10 mg tablet 10 mg PO DAILY 01/25/24 05/11/24 diltiazem HCl 180 mg 180 mg PO DAILY 01/25/24 05/11/24 capsule,extended release 24 hr nystatin 100,000 unit/gram topical 1 applic topical BID 01/25/24 05/11/24 cream cyclobenzaprine 10 mg tablet 10 mg PO 3XD PRN msk pain 03/13/24 05/11/24 melatonin 3 mg tablet 3 mg PO BEDTIME 03/13/24 05/11/24 metoprolol succinate 100 mg 100 mg PO DAILY 03/13/24 05/11/24 tablet,extended release 24 hr doxycycline hyclate 100 mg capsule 100 mg PO BID 05/11/24 05/11/24 Previous Rx's Medication Instructions Recorded acetaminophen 325 mg tablet 975 mg (3 x 325 mg) PO Q6H PRN 02/03/24 Fever/Mild Pain (1-3) #90 tabs docusate sodium 100 mg capsule 100 mg PO BID #30 caps 03/20/24 metoprolol succinate 50 mg 50 mg PO DAILY #30 tabs 03/20/24 tablet,extended release 24 hr nitroglycerin 0.4 mg sublingual 0.4 mg sublingual Q5M PRN Chest 03/20/24 tablet (Nitrostat) Pain #10 tabs oxycodone 5 mg tablet 5 mg PO Q3H PRN Pain, Moderate 03/20/24 (4-6) #60 tabs pantoprazole 40 mg tablet,delayed 40 mg PO DAILY #30 tabs 03/20/24 release polyethylene glycol 3350 17 gram 17 gm PO DAILY PRN Constipation 03/20/24 oral powder packet #30 ea Allergies Allergy/AdvReac Type Severity Reaction Status Date / Time tramadol Allergy Intermediate shakey Verified 05/11/24 14:17 NSAIDS (Non-Steroidal AdvReac Intermediate pt is not Verified 05/11/24 14:17 Anti-Inflamma supposed [NSAIDS (NON-STEROIDAL to take ANTI-INFLAMMA] them Patient History Medical History CVA (cerebral vascular accident) (06/10/23) Dysphagia Normal cardiac ejection fraction (06/03/23) Aortic stenosis Chronic, continuous use of opioids Iron deficiency anemia following bariatric surgery BPH w/o urinary obs/LUTS DDD (degenerative disc disease), lumbar Pacemaker (2007) Allergic rhinitis Obstructive sleep apnea, adult Obesity (BMI 30-39.9) Hyperlipidemia Fatigue due to sleep pattern disturbance GERD (gastroesophageal reflux disease) 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 hypertension 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) Left inguinal hernia Chronic kidney disease (CKD) stage G3a/A1, moderately decreased glomerular filtration rate (GFR) between 45-59 mL/min/1.73 square meter and albuminuria creatinine ratio less than 30 mg/g Atrial fibrillation Surgical History S/P PICC central line placement (01/31/24) H/O Spinal surgery Hx of knee surgery (01/25/24) H/O total knee replacement H/O left inguinal hernia repair (03/20/20) History of cholecystectomy H/O gastric bypass Family History Family/Other Loud snoring Dementia Father Loud snoring Obesity Hypertension Heart disease Mother Loud snoring Obesity Hypertension Depression Anxiety Family/Other Hypertension Depression Social History household members: children and none Smoking Status: Never smoker alcohol intake: never Smoking Status: Never smoker alcohol intake frequency: holidays/special occasions only Exam Initial Vital Signs Initial Vital Signs: Vital Signs Temperature 98.5 F 06/07/24 15:21 Pulse Rate 89 06/07/24 15:21 Respiratory Rate 16 06/07/24 15:21 Blood Pressure 151/77 H 06/07/24 15:21 Pulse Oximetry 94 06/07/24 15:21 Oxygen Delivery Method Room Air 06/07/24 15:21 GENERAL: Alert confused 69-year-old male HEENT: Head atraumatic,EOMI, pupils reactive, face symmetric, [moist] mucous membranes CARDIOVASCULAR: Regular rate and rhythm without murmurs, rubs or gallops. RESPIRATORY: Breath sounds equal bilaterally, no wheezes rales or rhonchi. ABDOMEN: Soft, nontender. Normoactive bowel sounds all 4 quadrants. No guarding or rebound. : Lamas catheter in place no suprapubic pain EXTREMITIES: Normal range of motion, no clubbing or edema. Neurovascularly intact NEUROLOGICAL: Alert and oriented x4.Normal gait and speech. Cranial nerves II through XII grossly intact. SKIN: Warm, dry, no laceration, no petechiae, no rashes or lesions. Course Orders Ordered: Discontinued Medications Ondansetron HCl (Ondansetron 4 Mg/2 Ml Inj) 4 mg IV NOW PRN PRN Reason: Nausea And Vomiting Ondansetron HCl (Ondansetron 4 Mg Odt) 4 mg PO NOW PRN PRN Reason: Nausea And Vomiting Vital Signs Vital signs: Vital Signs - 8 hr 06/07/24 21:00 06/07/24 21:00 06/07/24 21:30 Pulse Rate 72 83 Respiratory Rate 16 16 Blood Pressure 137/73 Pulse Oximetry 97 96 Oxygen Delivery Method Room Air Room Air 06/07/24 21:30 06/07/24 22:00 06/07/24 22:00 Pulse Rate 86 Respiratory Rate 16 Blood Pressure 135/85 138/78 Pulse Oximetry 99 Oxygen Delivery Method Room Air MDM - Male Genitourinary Lab Data 06/07/24 15:46 06/07/24 15:46 Labs: Lab Results 06/07/24 06/07/24 Range/Units 15:46 16:10 WBC 8.6 (4.5-11.0) X10^3/uL RBC 6.04 H (4.5-5.9) X10^6/uL Hgb 14.9 (13.5-17.5) g/dL Hct 46.4 (41-53) % MCV 76.9 L (80-100) fL MCH 24.6 L (26-34) PG MCHC 32.0 (30-36) % RDW 17.3 H (11.6-14.8) % Plt Count 176 (150-400) X10^3/uL Neut % (Auto) 77.9 H (50-75) % Lymph % (Auto) 10.3 L (25-40) % [place] % (Auto) 9.4 (3-14) % Eos % (Auto) 1.4 L (2-4) % Baso % (Auto) 1.0 (0-2) % Neut # (Auto) 6700 (2497-2910) /uL Lymph # (Auto) 900 L (5113-2760) /uL [place] # (Auto) 800 (0-900) /uL Eos # (Auto) 100 (0-450) /uL Baso # (Auto) 100 (0-100) /uL Sodium 137 (137-145) mmol/L Potassium 4.6 (3.4-5.1) mmol/L Chloride 104 (98-107) mmol/L Carbon Dioxide 22 (22-32) mmol/L BUN 22 H (9-20) mg/dL Creatinine 1.21 (0.66-1.25) mg/dL Estimated GFR > 60 (>60) mL/min BUN/Creatinine Ratio 18.2 (6-22) Glucose 109 (80-110) mg/dL Calcium 10.0 (8.4-10.2) mg/dL Total Bilirubin 1.1 (0.2-1.3) mg/dL AST 28 (17-59) IU/L ALT 14 (<50) IU/L Alkaline Phosphatase 117 (38-126) U/L Total Protein 7.5 (6.3-8.2) g/dL Albumin 4.3 (3.5-5.0) g/dL Globulin 3.2 (1.7-4.1) g/dL Albumin/Globulin Ratio 1.3 (1.0-2.8) Lipase 78 (23-300) U/L Urine Color Yellow Urine Appearance Clear Urine pH 5.5 (4.5-8.0) Ur Specific [place] 1.020 (1.000-1.035) Urine Protein Negative (Negative) Urine Glucose (UA) Negative (Negative) g/dL Urine Ketones Negative (NEGATIVE) Urine Occult Blood Trace-intact (Negative) Urine Nitrate Negative (Negative) Urine Bilirubin Negative (NEGATIVE) Urine Urobilinogen 0.2 (0.2) E.U./dL Ur Leukocyte Esterase Negative (NEGATIVE) Urine RBC 0-1/hpf (0-5/HPF) Urine WBC None seen (0-5/HPF) Ur Squamous Epith Cells None seen (0-5/HPF) Urine Bacteria None seen (None) Ur Culture Indicated? Cult not indicated Vol Urine Centrifuged 10ml (spun) MDM Narrative Medical decision making narrative: Patient 69-year-old male presenting to day with abdominal pain. Found to have urinary retention. Lamas catheter placed. Blood work has been reviewed he has no leukocytosis no FERNANDA electrolytes within normal limits. Urinalysis actually does not appear infected. Currently taking Cipro. No evidence of sepsis. Abdomen remained soft he appears comfortable ice see no need for imaging at this time. Discharge Plan Departure Patient Disposition: Home Clinical Impression: Acute urinary retention Instructions: DI for Urinary Retention in Men Activity Restrictions/Additional Instructions: *You have been diagnosed with urinary retention *What to do: At this time have Lamas catheter removed in about 1-2 weeks primary care provider or with Urology *Continue to take medications as directed Finish taking antibiotic as prescribed *Follow up with your primary care provider in 2-3 days or call [phone] *Return to ER if you should have increasing confusion Lamas catheter problem not draining blood in catheter or any new, worsening or concerning symptoms Prescriptions: No Action atorvastatin 10 mg tablet 10 mg PO DAILY doxycycline hyclate 100 mg capsule 100 mg PO BID Eliquis 5 mg tablet 5 mg PO BID diltiazem HCl 180 mg capsule,extended release 24hr 180 mg PO DAILY cetirizine 10 mg tablet 10 mg PO DAILY nystatin 100,000 unit/gram cream 1 applic topical BID acetaminophen 325 mg Tablet 975 mg PO Q6H PRN (Reason: Fever/Mild Pain (1-3)) Qty: 90 0RF cyclobenzaprine 10 mg tablet 10 mg PO 3XD PRN (Reason: msk pain) metoprolol succinate 100 mg tablet extended release 24 hr 100 mg PO DAILY melatonin 3 mg Tablet 3 mg PO BEDTIME metoprolol succinate 50 mg Tablet Extended Release 24 Hr 50 mg PO DAILY Qty: 30 0RF pantoprazole 40 mg Tablet,Delayed Release (Dr/Ec) 40 mg PO DAILY Qty: 30 0RF nitroglycerin [Nitrostat] 0.4 mg Tablet, Sublingual 0.4 mg sublingual Q5M PRN (Reason: Chest Pain) Qty: 10 0RF polyethylene glycol 3350 17 gram Powder In Packet 17 gm PO DAILY PRN (Reason: Constipation) Qty: 30 0RF docusate sodium 100 mg Capsule 100 mg PO BID Qty: 30 0RF oxycodone 5 mg Tablet 5 mg PO Q3H PRN (Reason: Pain, Moderate (4-6)) Qty: 60 0RF Referrals: Natasha Carroll MD [Primary Care Provider] - Stand Alone Forms: Patient Portal/API/Survey
== END 2024-06-07 22:30 | disposition home or self-care (01) ==
PROVIDERS: Emergency Medicine; Emergency Provider Emergency Medicine; PCP Internal Medicine
DX: R33.8 Other retention of urine (principal)
CPT/HCPCS: 80053; 81001; 83690; 85025; 99283

== ENCOUNTER 2024-06-22 13:29 | Observation (INO) | payer MEDICARE, SELFPAY ==
[2024-03-13 07:00] VITALS: BMI 36.6
[2024-06-22] VITALS (22 sets, daily range): BP systolic 118–127; BP diastolic 69–92; PULSE 76–110; RESP 16–24; TEMP 36.8; O2SAT 96–100; BMI 33.2
[2024-06-22 14:59] LABS: Add Manual Diff / Slide Review NO; Basophils Absolute Auto 0 /uL (0-100); Basophils Percent Auto 0.3 % (0-2); Eosinophils Absolute Auto 100 /uL (0-450); Eosinophils Percent Auto 2.5 % (2-4); Hematocrit 43.9 % (41-53); Hemoglobin 14.3 g/dL (13.5-17.5); Lymphocytes Absolute Auto 900 /uL (1100-4500); Lymphocytes Percent Auto 18.7 % (25-40); Mean Corpuscular HGB Conc 32.6 % (30-36); Mean Corpuscular Hemoglobin 24.7 PG (26-34); Mean Corpuscular Volume 75.9 fL (80-100); Monocytes Absolute Auto 400 /uL (0-900); Monocytes Percent Auto 9.1 % (3-14); Neutrophils Absolute Auto 3400 /uL (1500-7000); Neutrophils Percent Auto 69.4 % (50-75); Platelet Count 188 X10^3/uL (150-400); Red Blood Cell Count 5.78 X10^6/uL (4.5-5.9); Red Cell Distribution Width 17.6 % (11.6-14.8); White Blood Cell Count 4.9 X10^3/uL (4.5-11.0)
[2024-06-22 15:19] LABS: Alanine Aminotransferase 11 IU/L (<50); Albumin 4.2 g/dL (3.5-5.0); Albumin Globulin Ratio 1.4 (1.0-2.8); Alkaline Phosphatase 107 U/L (38-126); Aspartate Aminotransferase 30 IU/L (17-59); BUN Creatinine Ratio 18.9 (6-22); Bilirubin Total 1.4 mg/dL (0.2-1.3); Blood Urea Nitrogen 18 mg/dL (9-20); Calcium 9.8 mg/dL (8.4-10.2); Carbon Dioxide 25 mmol/L (22-32); Chloride 100 mmol/L (98-107); Estimated Glomerular Filt Rate > 60 mL/min (>60); Globulin 2.9 g/dL (1.7-4.1); Glucose 97 mg/dL (80-110); Lipase 49 U/L (23-300); Potassium 4.7 mmol/L (3.4-5.1); Sodium 135 mmol/L (137-145); Total Protein 7.1 g/dL (6.3-8.2)
[2024-06-22 15:21] LABS: HEMOLYSIS 87 (0-50)
--- NOTE | 2024-06-22 15:25 | ED.ABDPAIN ---
HPI - Abdominal Pain <Doreen Willams, DO - Last Filed: 06/23/24 07:14> General Chief Complaint: Abdominal Pain Stated Complaint: constipation Time Seen by Provider: 06/22/24 13:44 Source: patient and EMS Mode of arrival: EMS History of Present Illness HPI narrative: Patient is a 69-year-old male history of COPD atrial fibrillation on Eliquis presenting to day with constipation. Reports he has not had a bowel movement in the last 15 days. He has a chronic indwelling Lamas catheter which was placed June 07. He is an overall poor historian. Abdomen is soft no nausea no vomiting no fever. 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 Related Data Home Medications Medication Instructions Recorded Confirmed atorvastatin 10 mg tablet 10 mg PO DAILY 01/31/23 05/11/24 apixaban 5 mg tablet (Eliquis) 5 mg PO BID 01/25/24 06/23/24 cetirizine 10 mg tablet 10 mg PO DAILY 01/25/24 05/11/24 diltiazem HCl 180 mg 180 mg PO DAILY 01/25/24 06/23/24 capsule,extended release 24 hr nystatin 100,000 unit/gram topical 1 applic topical BID 01/25/24 05/11/24 cream cyclobenzaprine 10 mg tablet 10 mg PO 3XD PRN msk pain 03/13/24 05/11/24 melatonin 3 mg tablet 3 mg PO BEDTIME 03/13/24 05/11/24 metoprolol succinate 100 mg 100 mg PO DAILY 03/13/24 05/11/24 tablet,extended release 24 hr doxycycline hyclate 100 mg capsule 100 mg PO BID 05/11/24 06/23/24 Previous Rx's Medication Instructions Recorded acetaminophen 325 mg tablet 975 mg (3 x 325 mg) PO Q6H PRN 02/03/24 Fever/Mild Pain (1-3) #90 tabs docusate sodium 100 mg capsule 100 mg PO BID #30 caps 03/20/24 metoprolol succinate 50 mg 50 mg PO DAILY #30 tabs 03/20/24 tablet,extended release 24 hr nitroglycerin 0.4 mg sublingual 0.4 mg sublingual Q5M PRN Chest 03/20/24 tablet (Nitrostat) Pain #10 tabs oxycodone 5 mg tablet 5 mg PO Q3H PRN Pain, Moderate 03/20/24 (4-6) #60 tabs pantoprazole 40 mg tablet,delayed 40 mg PO DAILY #30 tabs 03/20/24 release polyethylene glycol 3350 17 gram 17 gm PO DAILY PRN Constipation 03/20/24 oral powder packet #30 ea tamsulosin 0.4 mg capsule 0.4 mg PO DAILY #30 caps 06/13/24 Allergies Allergy/AdvReac Type Severity Reaction Status Date / Time tramadol Allergy Intermediate shakey Verified 05/11/24 14:17 NSAIDS (Non-Steroidal AdvReac Intermediate pt is not Verified 05/11/24 14:17 Anti-Inflamma supposed [NSAIDS (NON-STEROIDAL to take ANTI-INFLAMMA] them Patient History <Doreen Willams DO - Last Filed: 06/23/24 07:14> Medical History CVA (cerebral vascular accident) (06/10/23) Dysphagia Normal cardiac ejection fraction (06/03/23) Aortic stenosis Chronic, continuous use of opioids Iron deficiency anemia following bariatric surgery BPH w/o urinary obs/LUTS DDD (degenerative disc disease), lumbar Pacemaker (2007) Allergic rhinitis Obstructive sleep apnea, adult Obesity (BMI 30-39.9) Hyperlipidemia Fatigue due to sleep pattern disturbance GERD (gastroesophageal reflux disease) Essential hypertension 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) Left inguinal hernia Chronic kidney disease (CKD) stage G3a/A1, moderately decreased glomerular filtration rate (GFR) between 45-59 mL/min/1.73 square meter and albuminuria creatinine ratio less than 30 mg/g Atrial fibrillation Surgical History S/P PICC central line placement (01/31/24) H/O Spinal surgery Hx of knee surgery (01/25/24) H/O total knee replacement H/O left inguinal hernia repair (03/20/20) History of cholecystectomy H/O gastric bypass Family History Family/Other Loud snoring Dementia Father Loud snoring Obesity Hypertension Heart disease Mother Loud snoring Obesity Hypertension Depression Anxiety Family/Other Hypertension Depression Social History household members: children and none alcohol intake: never alcohol intake frequency: holidays/special occasions only Exam <Doreen Willams DO - Last Filed: 06/23/24 07:14> Initial Vital Signs Initial Vital Signs: Vital Signs Temperature 98.2 F 06/22/24 13:36 Pulse Rate 87 06/22/24 13:36 Respiratory Rate 18 06/22/24 13:36 Blood Pressure 127/78 06/22/24 13:36 Pulse Oximetry 99 06/22/24 13:36 Oxygen Delivery Method Room Air 06/22/24 13:36 GENERAL: Alert pleasant confused 69-year-old male no acute distress and in [no acute] distress. HEENT: Head atraumatic,EOMI, pupils reactive, face symmetric, [moist] mucous membranes CARDIOVASCULAR: Regular rate and rhythm without murmurs, rubs or gallops. RESPIRATORY: Breath sounds equal bilaterally, no wheezes rales or rhonchi. ABDOMEN: Soft, nontender. Normoactive bowel sounds all 4 quadrants. No guarding or rebound. : Indwelling Lamas catheter EXTREMITIES: Normal range of motion, no clubbing or edema. Neurovascularly intact NEUROLOGICAL: Alert and oriented x4. SKIN: Warm, dry, no laceration, no petechiae, no rashes or lesions. <Aleksandra Christie MD - Last Filed: 06/23/24 00:51> Initial Vital Signs Initial Vital Signs: Vital Signs Temperature 98.2 F 06/22/24 13:36 Pulse Rate 87 06/22/24 13:36 Respiratory Rate 18 06/22/24 13:36 Blood Pressure 127/78 06/22/24 13:36 Pulse Oximetry 99 06/22/24 13:36 Oxygen Delivery Method Room Air 06/22/24 13:36 Course <Doreen Willams DO - Last Filed: 06/23/24 07:14> Orders Ordered: ED Orders 06/23/24 04:40 Basic Metabolic Panel Routine Complete Blood Count AUTO DIFF Routine Magnesium Routine Acetaminophen (Acetaminophen 325 Mg Tablet) 650 mg PO Q6H PRN PRN Reason: Fever/Mild Pain (1-3) Apixaban (Apixaban 5 Mg Tablet) 5 mg PO BID [place] Atorvastatin Calcium (Atorvastatin 20 Mg Tablet) 10 mg PO DAILY [facility] Diltiazem HCl (Diltiazem Cd 180 Mg Cap) 180 mg PO DAILY [facility] Naloxone HCl (Naloxone 0.4 Mg/Ml Vial) 0.2 mg IV Q2MIN PRN PRN Reason: Opiate Reversal Ondansetron HCl (Ondansetron 4 Mg/2 Ml Inj) 4 mg IV Q8HR PRN PRN Reason: Nausea And Vomiting Tamsulosin HCl (Tamsulosin 0.4 Mg Capsule) 0.4 mg PO DAILY [place] Discontinued Medications Bisacodyl (Bisacodyl 5 Mg Tablet) 10 mg PO NOW ONE Stop: 06/22/24 21:41 Last Admin: 06/22/24 22:44 Dose: 10 mg Documented By: SHANE Mineral Oil (Mineral Oil 1 Each Enema) 1 each TX NOW ONE Stop: 06/22/24 17:12 Last Admin: 06/22/24 18:00 Dose: 1 each Documented By: SHANE Mineral Oil (Mineral Oil 1 Each Enema) 1 each TX NOW ONE Stop: 06/22/24 21:41 Last Admin: 06/22/24 22:44 Dose: 1 each Documented By: SHANE Polyethylene Glycol/Electrolytes ([id number]/Sod Sulf,Bicarb,Cl/Kcl 4,000 Ml Solution) 2,000 ml PO NOW ONE Stop: 06/23/24 03:07 Last Admin: 06/23/24 06:47 Dose: 2,000 ml Documented By: SR Sodium Biphosphate/Sodium Phosphate (Fleets Enema) 1 each TX NOW ONE Stop: 06/22/24 21:41 Last Admin: 06/22/24 22:48 Dose: Not Given Documented By: SHANE Vital Signs Vital signs: Vital Signs - 8 hr 06/22/24 23:30 06/23/24 00:00 06/23/24 00:30 Pulse Rate 110 H 110 H 105 H Respiratory Rate 21 20 21 06/23/24 01:00 Pulse Rate 103 H Respiratory Rate 20 <Aleksandra Christie MD - Last Filed: 06/23/24 00:51> Orders Ordered: ED Orders 06/23/24 04:40 Basic Metabolic Panel Routine Complete Blood Count AUTO DIFF Routine Magnesium Routine Acetaminophen (Acetaminophen 325 Mg Tablet) 650 mg PO Q6H PRN PRN Reason: Fever/Mild Pain (1-3) Apixaban (Apixaban 5 Mg Tablet) 5 mg PO BID [facility] Atorvastatin Calcium (Atorvastatin 20 Mg Tablet) 10 mg PO DAILY [facility] Diltiazem HCl (Diltiazem Cd 180 Mg Cap) 180 mg PO DAILY [facility] Naloxone HCl (Naloxone 0.4 Mg/Ml Vial) 0.2 mg IV Q2MIN PRN PRN Reason: Opiate Reversal Ondansetron HCl (Ondansetron 4 Mg/2 Ml Inj) 4 mg IV Q8HR PRN PRN Reason: Nausea And Vomiting Tamsulosin HCl (Tamsulosin 0.4 Mg Capsule) 0.4 mg PO DAILY [facility] Discontinued Medications Bisacodyl (Bisacodyl 5 Mg Tablet) 10 mg PO NOW ONE Stop: 06/22/24 21:41 Last Admin: 06/22/24 22:44 Dose: 10 mg Documented By: SHANE Mineral Oil (Mineral Oil 1 Each Enema) 1 each TX NOW ONE Stop: 06/22/24 17:12 Last Admin: 06/22/24 18:00 Dose: 1 each Documented By: SHANE Mineral Oil (Mineral Oil 1 Each Enema) 1 each TX NOW ONE Stop: 06/22/24 21:41 Last Admin: 06/22/24 22:44 Dose: 1 each Documented By: SHANE Polyethylene Glycol/Electrolytes ([id number]/Sod Sulf,Bicarb,Cl/Kcl 4,000 Ml Solution) 2,000 ml PO NOW ONE Stop: 06/23/24 03:07 Last Admin: 06/23/24 06:47 Dose: 2,000 ml Documented By: Sodium Biphosphate/Sodium Phosphate (Fleets Enema) 1 each TX NOW ONE Stop: 06/22/24 21:41 Last Admin: 06/22/24 22:48 Dose: Not Given Documented By: SHANE Vital Signs Vital signs: Vital Signs - 8 hr 06/22/24 23:30 06/23/24 00:00 06/23/24 00:30 Pulse Rate 110 H 110 H 105 H Respiratory Rate 21 20 21 06/23/24 01:00 Pulse Rate 103 H Respiratory Rate 20 MDM - Abdominal Pain <Doreen Willams DO - Last Filed: 06/23/24 07:14> Lab Data 06/23/24 04:40 06/23/24 04:40 Labs: Lab Results 06/22/24 Range/Units 14:40 WBC 4.9 (4.5-11.0) X10^3/uL RBC 5.78 (4.5-5.9) X10^6/uL Hgb 14.3 (13.5-17.5) g/dL Hct 43.9 (41-53) % MCV 75.9 L (80-100) fL MCH 24.7 L (26-34) PG MCHC 32.6 (30-36) % RDW 17.6 H (11.6-14.8) % Plt Count 188 (150-400) X10^3/uL Neut % (Auto) 69.4 (50-75) % Lymph % (Auto) 18.7 L (25-40) % [place] % (Auto) 9.1 (3-14) % Eos % (Auto) 2.5 (2-4) % Baso % (Auto) 0.3 (0-2) % Neut # (Auto) 3400 (5906-8702) /uL Lymph # (Auto) 900 L (7598-4565) /uL [place] # (Auto) 400 (0-900) /uL Eos # (Auto) 100 (0-450) /uL Baso # (Auto) 0 (0-100) /uL Sodium 135 L (137-145) mmol/L Potassium 4.7 (3.4-5.1) mmol/L Chloride 100 (98-107) mmol/L Carbon Dioxide 25 (22-32) mmol/L BUN 18 (9-20) mg/dL Creatinine 0.95 (0.66-1.25) mg/dL Estimated GFR > 60 (>60) mL/min BUN/Creatinine Ratio 18.9 (6-22) Glucose 97 (80-110) mg/dL Calcium 9.8 (8.4-10.2) mg/dL Total Bilirubin 1.4 H (0.2-1.3) mg/dL AST 30 (17-59) IU/L ALT 11 (<50) IU/L Alkaline Phosphatase 107 (38-126) U/L Total Protein 7.1 (6.3-8.2) g/dL Albumin 4.2 (3.5-5.0) g/dL Globulin 2.9 (1.7-4.1) g/dL Albumin/Globulin Ratio 1.4 (1.0-2.8) Lipase 49 (23-300) U/L Point of care testing: Urine Dip Bedside Urine Glucose Negative Bedside Urine Bilirubin - Negative Bedside Urine Ketone +/- 5 Urine Specific [place] 1.010 Bedside Urine Occult Blood +++ Bedside Urine pH 6.0 Bedside Urine Protein - Negative Bedside Urine Urobilinogen - Negative Bedside Urine Nitrite - Negative Bedside Urine Leukocytes - Negative Esterase MDM Narrative Medical decision making narrative: Patient is 69-year-old male presenting today with no bowel movement for the last 15 days. Abdomen is relatively soft vitals are stable. Blood work reviewed no leukocytosis WBC is 4.9 no anemia CMP no electrolyte abnormalities or FERNANDA bilirubin is 1.4 CT showed massive rectal fecal impaction with stercoral colitis. Diffuse very large fecal load throughout the colon. Patient given mineral enema Patient has no leukocytosis abdomen is relatively soft. CT does show significant colitis and rectal fecal load. Signed out to Dr. Christie <Aleksandra Christie MD - Last Filed: 06/23/24 00:51> Lab Data Labs: Lab Results 06/22/24 Range/Units 14:40 WBC 4.9 (4.5-11.0) X10^3/uL RBC 5.78 (4.5-5.9) X10^6/uL Hgb 14.3 (13.5-17.5) g/dL Hct 43.9 (41-53) % MCV 75.9 L (80-100) fL MCH 24.7 L (26-34) PG MCHC 32.6 (30-36) % RDW 17.6 H (11.6-14.8) % Plt Count 188 (150-400) X10^3/uL Neut % (Auto) 69.4 (50-75) % Lymph % (Auto) 18.7 L (25-40) % [place] % (Auto) 9.1 (3-14) % Eos % (Auto) 2.5 (2-4) % Baso % (Auto) 0.3 (0-2) % Neut # (Auto) 3400 (8539-3944) /uL Lymph # (Auto) 900 L (4064-7504) /uL [place] # (Auto) 400 (0-900) /uL Eos # (Auto) 100 (0-450) /uL Baso # (Auto) 0 (0-100) /uL Sodium 135 L (137-145) mmol/L Potassium 4.7 (3.4-5.1) mmol/L Chloride 100 (98-107) mmol/L Carbon Dioxide 25 (22-32) mmol/L BUN 18 (9-20) mg/dL Creatinine 0.95 (0.66-1.25) mg/dL Estimated GFR > 60 (>60) mL/min BUN/Creatinine Ratio 18.9 (6-22) Glucose 97 (80-110) mg/dL Calcium 9.8 (8.4-10.2) mg/dL Total Bilirubin 1.4 H (0.2-1.3) mg/dL AST 30 (17-59) IU/L ALT 11 (<50) IU/L Alkaline Phosphatase 107 (38-126) U/L Total Protein 7.1 (6.3-8.2) g/dL Albumin 4.2 (3.5-5.0) g/dL Globulin 2.9 (1.7-4.1) g/dL Albumin/Globulin Ratio 1.4 (1.0-2.8) Lipase 49 (23-300) U/L Point of care testing: Urine Dip Bedside Urine Glucose Negative Bedside Urine Bilirubin - Negative Bedside Urine Ketone +/- 5 Urine Specific [place] 1.010 Bedside Urine Occult Blood +++ Bedside Urine pH 6.0 Bedside Urine Protein - Negative Bedside Urine Urobilinogen - Negative Bedside Urine Nitrite - Negative Bedside Urine Leukocytes - Negative Esterase MDM Narrative Medical decision making narrative: Patient is 69-year-old male presenting today with no bowel movement for the last 15 days. Abdomen is relatively soft vitals are stable. Blood work reviewed no leukocytosis WBC is 4.9 no anemia CMP no electrolyte abnormalities or FERNANDA bilirubin is 1.4 CT showed massive rectal fecal impaction with stercoral colitis. Diffuse very large fecal load throughout the colon. Patient given mineral enema Patient has no leukocytosis abdomen is relatively soft. CT does show stercoral colitis and rectal fecal load. Signed out to Dr. Shahnaz Christie. Patient is independently examined, chart is reviewed No significant pathology aside from dramatic amount of stool and air throughout his colon Mineral oil enema is placed with no return Manual bowel disimpaction was attempted however he has a large volume of very soft stool and there is nothing to grab onto to pull out Will place another enema and give him an oral laxative. Bowel motility clearly is the problem this is not significantly impacted and appears to be quite soft stool Fleets and soap suds enema as well as oral dlucolax. Still no urge to defecate. At this point this 69-year-old gentleman with significant post stroke deficits, mostly homebound, occasionally uses a wheelchair, chronic atrial fibrillation with anticoagulation, chronic kidney disease in the ER now for over 12 hours with the abdominal pain that appears to be significant constipation. Last bowel movement was 15 days ago. He now has had 3 enemas, attempts at manual bowel disimpaction and still has no urge to defecate. I believe we need to begin a full bowel prep. There has been some questions about care provided by his son at home given his significant debility after his stroke. Getting his bowels completely cleaned out in a safe manner will require more assistance than he has at home and hospitalization is recommended. We will talk to the hospitalist Discharge Plan Departure Patient Disposition: Admitted as Observation Clinical Impression: Obstipation, History of stroke with residual deficit, Stercoral colitis Abdominal pain Qualifiers: Abdominal location: generalized Qualified Code(s): R10.84 - Generalized abdominal pain Admit Date/Time: 06/23/24 01:05 Admit Provider: Bright Stacy
--- NOTE | 2024-06-22 15:31 | DI.CT.S_ITS ---
PROCEDURE: CT ABDOMEN PELVIS W CON INDICATIONS: no bm 15 days TECHNIQUE: After the administration of intravenous contrast, axial sections acquired from the lung bases to the pubic symphysis. Coronal and sagittal reformats were performed. For radiation dose reduction, the following was used: automated exposure control, adjustment of mA and/or kV according to patient size. COMPARISON: [facility], CT, CT ANGIO ABDOMEN PELVIS, 10/23/2020, 13:33. FINDINGS: Image quality: Diagnostic. Lower Chest: Minimal right basilar atelectasis. Mild cardiomegaly. Pacemaker. Severe coronary artery calcifications. Distal esophageal thickening is again noted, consistent with distal esophagitis. ABDOMEN: Liver: No solid mass. Gallbladder: Absent Biliary ducts: No biliary dilation. Pancreas: No ductal dilation. Spleen: Size is within normal limits. Adrenal Glands: No adrenal nodules. Kidneys and Ureters: No hydronephrosis. No solid mass. No complex renal cystic lesion which requires follow up. Stomach and Bowel: Massive rectal fecal impaction with stercoral colitis. There is very large diffuse fecal load. Remote gastric bypass surgery. Peritoneum: No abnormal intraperitoneal fluid. No free air. Ventral Wall: No significant ventral hernia. Abdominal Nodes: No retroperitoneal or mesenteric adenopathy by size criteria. Vessels: Aorta and inferior vena cava are normal in size. 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 PELVIS: Pelvic Organs: Unremarkable. Bladder: A Lamas catheter is present in the bladder. There is air in the bladder presumed secondary to Lamas catheter insertion. Pelvic Nodes: No enlarged lymph nodes. Miscellaneous: No inguinal hernias are seen. Bones: No aggressive osseous abnormality. Remote lower lumbar laminectomy. Severe canal stenosis at L3-L4, as before. IMPRESSION: Massive rectal fecal impaction with stercoral colitis. Diffuse very large fecal load throughout the colon. Continued presence of distal esophagitis. Canal stenosis at L3-L4. Dictated by: Britton Gomez M.D. on 06/22/2024 at 16:55 Approved by: Britton Gomez M.D. on 06/22/2024 at 17:01
--- NOTE | 2024-06-22 17:38 | CM.SWNOTE ---
ED TUCK POINTER HELPER Note TUCK POINTER HELPER receives call from RN at [facility] regarding concerns for patient's living situation. Patient is current in service with [facility] . [facility] reports hx of making reports to APS regarding their concerns. It is reported that they have concerns for patient's medication management, access to food, access to toileting needs and concern that patient spends most of the day stuck in his chair. They report that they encouraged patient to seek medical attention at the ED due to concern for patient's lack of bowel movement for two weeks. Patient presented to ED via EMS today. This TUCK POINTER HELPER submits APS report regarding these concerns. APS ?Online Report Confirmation Number: [id number] ED plan of care and disposition pending at this time. TUCK POINTER HELPER to inform [facility] of patient's plan of care. TUCK POINTER HELPER to provide senior and caregiver resources to RN for distribution. AYESHA Esparza
[2024-06-22] MEDS: MINERAL OIL 1 EACH ENEMA PR ×2 (18:00→22:44)
[2024-06-22] MEDS: BISACODYL 5 MG TABLET 10 MG PO (22:44)
[2024-06-23] VITALS (9 sets, daily range): BP systolic 121–134; BP diastolic 79–95; PULSE 89–119; RESP 15–21; TEMP 36.2–37.1; O2SAT 93–98; BMI 33.2
--- NOTE | 2024-06-23 00:54 | PM.HP.1 ---
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 In the ED, labs and vitals were acutely unremarkable. He was given mineral oil enema followed by manual disimpaction, then fleets enema, then soap suds enema then dulcolax suppository - all with almost no resolution. CT showed significant fecal impaction and colitis. He has no fever, leucocytosis, or left shift. He is being admitted for bowel prep for the constipation. 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) Left inguinal hernia Chronic kidney disease (CKD) stage G3a/A1, moderately decreased glomerular filtration rate (GFR) between 45-59 mL/min/1.73 square meter and albuminuria creatinine ratio less than 30 mg/g Atrial fibrillation Surgical History S/P PICC central line placement (01/31/24) H/O Spinal surgery Hx of knee surgery (01/25/24) H/O total knee replacement H/O left inguinal hernia repair (03/20/20) History of cholecystectomy H/O gastric bypass Family History Family/Other Loud snoring Dementia Father Loud snoring Obesity Hypertension Heart disease Mother Loud snoring Obesity Hypertension Depression Anxiety Family/Other Hypertension Depression Social History household members: children and none alcohol intake: never Meds Home Medications and Allergies Home Medications Medication Instructions Recorded Confirmed Type atorvastatin 10 mg tablet 10 mg PO DAILY 01/31/23 05/11/24 History apixaban 5 mg tablet (Eliquis) 5 mg PO BID 01/25/24 06/23/24 History cetirizine 10 mg tablet 10 mg PO DAILY 01/25/24 05/11/24 History diltiazem HCl 180 mg 180 mg PO DAILY 01/25/24 06/23/24 History capsule,extended release 24 hr nystatin 100,000 unit/gram topical 1 applic topical BID 01/25/24 05/11/24 History cream acetaminophen 325 mg tablet 975 mg (3 x 325 mg) PO Q6H PRN 02/03/24 05/11/24 Rx Fever/Mild Pain (1-3) #90 tabs cyclobenzaprine 10 mg tablet 10 mg PO 3XD PRN msk pain 03/13/24 05/11/24 History melatonin 3 mg tablet 3 mg PO BEDTIME 03/13/24 05/11/24 History metoprolol succinate 100 mg 100 mg PO DAILY 03/13/24 05/11/24 History tablet,extended release 24 hr docusate sodium 100 mg capsule 100 mg PO BID #30 caps 03/20/24 05/11/24 Rx metoprolol succinate 50 mg 50 mg PO DAILY #30 tabs 03/20/24 05/11/24 Rx tablet,extended release 24 hr nitroglycerin 0.4 mg sublingual 0.4 mg sublingual Q5M PRN Chest 03/20/24 06/23/24 Rx tablet (Nitrostat) Pain #10 tabs oxycodone 5 mg tablet 5 mg PO Q3H PRN Pain, Moderate 03/20/24 05/11/24 Rx (4-6) #60 tabs pantoprazole 40 mg tablet,delayed 40 mg PO DAILY #30 tabs 03/20/24 05/11/24 Rx release polyethylene glycol 3350 17 gram 17 gm PO DAILY PRN Constipation 03/20/24 05/11/24 Rx oral powder packet #30 ea doxycycline hyclate 100 mg capsule 100 mg PO BID 05/11/24 06/23/24 History tamsulosin 0.4 mg capsule 0.4 mg PO DAILY #30 caps 06/13/24 Rx Allergies Allergy/AdvReac Type Severity Reaction Status Date / Time tramadol Allergy Intermediate shakey Verified 05/11/24 14:17 NSAIDS (Non-Steroidal AdvReac Intermediate pt is not Verified 05/11/24 14:17 Anti-Inflamma supposed [NSAIDS (NON-STEROIDAL to take ANTI-INFLAMMA] them Review of Systems Review of Systems Narrative: As per HPI. Rest of 10-system review negative or unobtainable. Exam Vital Signs (past 8 hours): - 06/22/24 17:00 06/22/24 17:00 06/22/24 17:30 Pulse Rate 95 H Respiratory Rate Blood Pressure 119/87 127/69 Pulse Oximetry 98 06/22/24 17:30 06/22/24 18:08 06/22/24 18:30 Pulse Rate 76 95 H 89 Respiratory Rate Blood Pressure Pulse Oximetry 99 96 100 06/22/24 19:00 06/22/24 19:12 06/22/24 19:12 Pulse Rate 97 H 91 H Respiratory Rate 18 Blood Pressure 122/92 H Pulse Oximetry 97 96 06/22/24 19:30 06/22/24 19:30 06/22/24 20:00 Pulse Rate 93 H 99 H Respiratory Rate Blood Pressure 126/90 Pulse Oximetry 98 98 06/22/24 20:30 06/22/24 21:00 06/22/24 21:30 Pulse Rate 92 H 83 85 Respiratory Rate 17 16 19 Blood Pressure Pulse Oximetry 98 06/22/24 22:00 06/22/24 22:30 06/22/24 23:00 Pulse Rate 105 H 105 H 82 Respiratory Rate 18 20 24 Blood Pressure Pulse Oximetry Oxygen Delivery Method Room Air Narrative Exam Narrative: Exam by telemedicine utilizing video, audio, digital stethoscop with RN assistance. Const Other: Frail, NAD, AA HENMT Other: NC/AT, nares patent, dry MM Eyes Other: wears glasses, anicteric, non-injected Resp Other: CTA-B Cardio Other: RRR GI Other: S/ND/+BS. Mild TTP LUQ, LLQ Other: maceration of groin, buttocks Skin Other: no rashes/lesions of legs Neuro Other: normal speech Extrem Other: 1+ pitting edema BLE Psych Other: normal mood, appropriate affect Objective Imaging CT scan - abdomen: Radiologist's impression: Massive rectal fecal impaction with stercoral colitis. Diffuse very large fecal load throughout the colon. Continued presence of distal esophagitis. Canal stenosis at L3-L4. Labs 06/22/24 14:40 06/22/24 14:40 Labs: Laboratory Results - last 24 hr 06/22/24 14:40 WBC 4.9 RBC 5.78 Hgb 14.3 Hct 43.9 MCV 75.9 L MCH 24.7 L MCHC 32.6 RDW 17.6 H Plt Count 188 Neut % (Auto) 69.4 Lymph % (Auto) 18.7 L [place] % (Auto) 9.1 Eos % (Auto) 2.5 Baso % (Auto) 0.3 Neut # (Auto) 3400 Lymph # (Auto) 900 L [place] # (Auto) 400 Eos # (Auto) 100 Baso # (Auto) 0 Sodium 135 L Potassium 4.7 Chloride 100 Carbon Dioxide 25 BUN 18 Creatinine 0.95 Estimated GFR > 60 BUN/Creatinine Ratio 18.9 Glucose 97 Calcium 9.8 Total Bilirubin 1.4 H AST 30 ALT 11 Alkaline Phosphatase 107 Total Protein 7.1 Albumin 4.2 Globulin 2.9 Albumin/Globulin Ratio 1.4 Lipase 49 Assessment & Plan Assessment and plan (1) Stercoral colitis: Status: Acute (2) Obstipation: Status: Acute Assessment & Plan narrative: 1. Acute obstipation x15 days with non-infectious colitis, POA, likely contribute to by chronic pain on chronic opiate therapy. 2. Chronic microcytosis without anemia 3. Permanent atrial fibrillation, controlled, on Eliquis treatment 4. Hypertension, hyperlipidemia 5. h/o CVA with resdual L-sided weakness 6. COPD, stable 7. BPH Plan: 1. Admit observation, med-surg 2. For GoLytely bowel prep 3. Reassess in morning to determine if endoscopy would be necessary 4. Continue Flomax, Eliquis, statin, CCB. 5. Hold BB to determine correct dose 6. Hold opiates Code: full FEN: cardiac diet DVT prophylaxis: SCDs Dispo: TBD Time-Based Coding :: [TOTAL MINUTES] spent with patient and on the chart (including review of chart, obtaining history, exam, reviewing outside data, placing orders, documenting exam and treatment plan, and counseling patient) on [DATE].
[2024-06-23 05:02] LABS: Add Manual Diff / Slide Review NO; Basophils Absolute Auto 100 /uL (0-100); Eosinophils Absolute Auto 200 /uL (0-450); Hematocrit 43.1 % (41-53); Hemoglobin 13.6 g/dL (13.5-17.5); Lymphocytes Absolute Auto 1100 /uL (1100-4500); Lymphocytes Percent Auto 19.7 % (25-40); Mean Corpuscular HGB Conc 31.6 % (30-36); Mean Corpuscular Hemoglobin 23.8 PG (26-34); Mean Corpuscular Volume 75.4 fL (80-100); Monocytes Absolute Auto 600 /uL (0-900); Monocytes Percent Auto 11.4 % (3-14); Neutrophils Absolute Auto 3600 /uL (1500-7000); Neutrophils Percent Auto 64.9 % (50-75); Platelet Count 180 X10^3/uL (150-400); Red Blood Cell Count 5.72 X10^6/uL (4.5-5.9); Red Cell Distribution Width 17.8 % (11.6-14.8); White Blood Cell Count 5.6 X10^3/uL (4.5-11.0)
[2024-06-23 05:11] LABS: BUN Creatinine Ratio 18.8 (6-22); Blood Urea Nitrogen 19 mg/dL (9-20); Calcium 9.8 mg/dL (8.4-10.2); Carbon Dioxide 26 mmol/L (22-32); Chloride 100 mmol/L (98-107); Estimated Glomerular Filt Rate > 60 mL/min (>60); Glucose 114 mg/dL (80-110); HEMOLYSIS < 15 (0-50); Sodium 136 mmol/L (137-145)
--- NOTE | 2024-06-23 06:21 | PC.WOUNDPHOT ---
admission skin ? wound photos
[2024-06-23] MEDS: PEG3350/SOD SULF,BICARB,CL/KCL 4,000 ML SOLUTION 2000 ML PO (06:47)
--- NOTE | 2024-06-23 08:45 | P.HP_ITS ---
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 In the ED, labs and vitals were acutely unremarkable. He was given mineral oil enema followed by manual disimpaction, then fleets enema, then soap suds enema then dulcolax suppository - all with almost no resolution. CT showed significant fecal impaction and colitis. He has no fever, leucocytosis, or left shift. He is being admitted for bowel prep for the constipation. Emergency room course: No significant pathology aside from dramatic amount of stool and air throughout his colon Mineral oil enema is placed with no return Manual bowel disimpaction was attempted however he has a large volume of very soft stool and there is nothing to grab onto to pull out Will place another enema and give him an oral laxative. Bowel motility clearly is the problem this is not significantly impacted and appears to be quite soft stool Fleets and soap suds enema as well as oral dlucolax. Still no urge to defecate. At this point this 69-year-old gentleman with significant post stroke deficits, mostly homebound, occasionally uses a wheelchair, chronic atrial fibrillation with anticoagulation, chronic kidney disease in the ER now for over 12 hours with the abdominal pain that appears to be significant constipation. Last bowel movement was 15 days ago. He now has had 3 enemas, attempts at manual bowel disimpaction and still has no urge to defecate. I believe we need to begin a full bowel prep. There has been some questions about care provided by his son at home given his significant debility after his stroke. Getting his bowels completely cleaned out in a safe manner will require more assistance than he has at home and hospitalization is recommended. Hospital course: 06/23: Review of systems: Physical exam: Assessment and plan: 1. Acute obstipation x15 days with non-infectious colitis, POA, likely contribute to by chronic pain on chronic opiate therapy. GoLYTELY prep in process 2. Chronic microcytosis without anemia 3. Permanent atrial fibrillation, controlled, on Eliquis treatment 4. Hypertension, hyperlipidemia 5. h/o CVA with resdual L-sided weakness 6. COPD, stable 7. BPH Plan: 1. Admit observation, med-surg 2. For GoLytely bowel prep 3. Reassess in morning to determine if endoscopy would be necessary 4. Continue Flomax, Eliquis, statin, CCB. 5. Hold BB to determine correct dose 6. 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) Left inguinal hernia Chronic kidney disease (CKD) stage G3a/A1, moderately decreased glomerular filtration rate (GFR) between 45-59 mL/min/1.73 square meter and albuminuria creatinine ratio less than 30 mg/g Atrial fibrillation Surgical History S/P PICC central line placement (01/31/24) H/O Spinal surgery Hx of knee surgery (01/25/24) H/O total knee replacement H/O left inguinal hernia repair (03/20/20) History of cholecystectomy H/O gastric bypass Family History Family/Other Loud snoring Dementia Father Loud snoring Obesity Hypertension Heart disease Mother Loud snoring Obesity Hypertension Depression Anxiety Family/Other Hypertension Depression Social History household members: children and none alcohol intake: never Meds Home Medications and Allergies Home Medications Medication Instructions Recorded Confirmed Type atorvastatin 10 mg tablet 10 mg PO DAILY 01/31/23 05/11/24 History apixaban 5 mg tablet (Eliquis) 5 mg PO BID 01/25/24 06/23/24 History cetirizine 10 mg tablet 10 mg PO DAILY 01/25/24 05/11/24 History diltiazem HCl 180 mg 180 mg PO DAILY 01/25/24 06/23/24 History capsule,extended release 24 hr nystatin 100,000 unit/gram topical 1 applic topical BID 01/25/24 05/11/24 History cream acetaminophen 325 mg tablet 975 mg (3 x 325 mg) PO Q6H PRN 02/03/24 05/11/24 Rx Fever/Mild Pain (1-3) #90 tabs cyclobenzaprine 10 mg tablet 10 mg PO 3XD PRN msk pain 03/13/24 05/11/24 History melatonin 3 mg tablet 3 mg PO BEDTIME 03/13/24 05/11/24 History metoprolol succinate 100 mg 100 mg PO DAILY 03/13/24 05/11/24 History tablet,extended release 24 hr docusate sodium 100 mg capsule 100 mg PO BID #30 caps 03/20/24 05/11/24 Rx metoprolol succinate 50 mg 50 mg PO DAILY #30 tabs 03/20/24 05/11/24 Rx tablet,extended release 24 hr nitroglycerin 0.4 mg sublingual 0.4 mg sublingual Q5M PRN Chest 03/20/24 06/23/24 Rx tablet (Nitrostat) Pain #10 tabs oxycodone 5 mg tablet 5 mg PO Q3H PRN Pain, Moderate 03/20/24 05/11/24 Rx (4-6) #60 tabs pantoprazole 40 mg tablet,delayed 40 mg PO DAILY #30 tabs 03/20/24 05/11/24 Rx release polyethylene glycol 3350 17 gram 17 gm PO DAILY PRN Constipation 03/20/24 05/11/24 Rx oral powder packet #30 ea doxycycline hyclate 100 mg capsule 100 mg PO BID 05/11/24 06/23/24 History tamsulosin 0.4 mg capsule 0.4 mg PO DAILY #30 caps 06/13/24 Rx Allergies Allergy/AdvReac Type Severity Reaction Status Date / Time NSAIDS (Non-Steroidal AdvReac Intermediate pt is not Verified 05/11/24 14:17 Anti-Inflamma supposed [NSAIDS (NON-STEROIDAL to take ANTI-INFLAMMA] them tramadol AdvReac Mild shakey Verified 06/23/24 11:17 Exam Vital Signs (past 8 hours): - 06/23/24 01:00 06/23/24 03:06 06/23/24 08:00 Temperature 97.4 F L 98.8 F Pulse Rate 103 H 97 H 106 H Respiratory Rate 20 20 15 Blood Pressure 124/84 124/85 Pulse Oximetry 97 98 Oxygen Delivery Method Room Air Objective Labs 06/23/24 04:40 06/23/24 04:40 Labs: Laboratory Results - last 24 hr 06/22/24 06/23/24 14:40 04:40 WBC 4.9 5.6 RBC 5.78 5.72 Hgb 14.3 13.6 Hct 43.9 43.1 MCV 75.9 L 75.4 L MCH 24.7 L 23.8 L MCHC 32.6 31.6 RDW 17.6 H 17.8 H Plt Count 188 180 Neut % (Auto) 69.4 64.9 Lymph % (Auto) 18.7 L 19.7 L [place] % (Auto) 9.1 11.4 Eos % (Auto) 2.5 3.0 Baso % (Auto) 0.3 1.0 Neut # (Auto) 3400 3600 Lymph # (Auto) 900 L 1100 [place] # (Auto) 400 600 Eos # (Auto) 100 200 Baso # (Auto) 0 100 Sodium 135 L 136 L Potassium 4.7 4.0 Chloride 100 100 Carbon Dioxide 25 26 BUN 18 19 Creatinine 0.95 1.01 Estimated GFR > 60 > 60 BUN/Creatinine Ratio 18.9 18.8 Glucose 97 114 H Calcium 9.8 9.8 Magnesium 2.0 Total Bilirubin 1.4 H AST 30 ALT 11 Alkaline Phosphatase 107 Total Protein 7.1 Albumin 4.2 Globulin 2.9 Albumin/Globulin Ratio 1.4 Lipase 49 Assessment & Plan Time-Based Coding :: [TOTAL MINUTES] spent with patient and on the chart (including review of chart, obtaining history, exam, reviewing outside data, placing orders, documenting exam and treatment plan, and counseling patient) on [DATE].
[2024-06-23] MEDS: TAMSULOSIN 0.4 MG CAPSULE PO (09:55)
[2024-06-23] MEDS: APIXABAN 5 MG TABLET PO ×2 (09:55→21:48)
[2024-06-23] MEDS: dilTIAZem CD 180 MG CAP PO (09:55)
[2024-06-23] MEDS: ATORVASTATIN 20 MG TABLET 10 MG PO (09:55)
[2024-06-23] MEDS: ACETAMINOPHEN 325 MG TABLET 650 MG PO (10:38)
[2024-06-23] MEDS: SODIUM CHLORIDE 0.9% 1,000 ML 1000 ML IV (12:29)
[2024-06-23] MEDS: HYDROMORPHONE 0.5 MG INJ IV ×2 (12:34→18:30)
--- NOTE | 2024-06-23 13:15 | CM.DANOTE ---
Patient is a 69 yo male who was admitted OBS Status on 06/23/24 today for Acute Obstipation. Pt has [facility] under [facility] for insurance and his PCP is Dr. Natasha Carroll at [facility]. EMR was reviewed. Per MD, pt with hx of COPD and CVA with residual weakness and aphasia and admitted after 15 days no bm and acute obstipation needing bowel prep. Per ED CRICKET COACH, [facility] currently open with pt and has concerns about his care at home and remaining in his chair for long periods of time and maybe not access to food. [facility] and ED CRICKET COACH made APS reports. SW met bedside with pt and explained role and pt alert and oriented x3 but with aphasia and word finding difficulty but able to answer questions appropriately. He confirms he is as spouse in February 2024 a few months ago and pt lives in [place] at home with his adult son Kulwinder ([phone]) who does not work and is pt's primary CG. Pt states he has lift chair and transfer poles at home but currently cannot self transfer as he used to do and relies on his son for transfers with matthew at home. Pt is in the process of getting a new w/c with leg lift and better support and he is also looking into renting a hospital bed as his insurance will not currently cover the cost so pt has been in contact with [facility]. Pt was last admitted in Jan and Feb 2024 and was discharged both times to [facility] for SNF rehab due to IV-Abx and wound vac needs. Pt confirms he does not want SNF at this time. Pt confirms he is open with [facility] and would like to Resume [facility] services at d/c and preference is home. Pt states he has been using [facility] for transportation as he and son are unable to safely get him in their POV. Pt requesting [facility] at d/c but needs to be arranged one day ahead. SW called [facility] and confirmed they do not provide transport in [place] on Sundays but can be contacted on Tuesday (tomorrow) before 1600 to schedule for transport on Tuesday if pt stable for discharge at [phone]. AGUSTIN made referral to [facility], to follow up with pt in the community regarding the expressed concerns of [facility]. Faxed clinicals to [facility] and discussed that pt would not meet criteria for SNF (which was their preference) and pt OBS Status and wants to d/c home. They confirm that they should be able to keep pt on their service but will check with their team on Tuesday and would likely need new orders and F2F completed. Plan: SW to follow closely for likely d/c home Tuesday if stable with [facility] and will need to call [facility] to schedule for Tue if anticipated pt will be stable for d/c at that time. SW to fax d/c summ, F2F and orders to [facility] at d/c. NEWTON Michael Discharge Planning/Care Management CM Discharge Assessment Start: 06/23/24 13:00 Freq: Status: Active Protocol: Document 06/23/24 13:00 BF (Rec: 06/23/24 13:15 BF [id number]) Discharge Planning Assessment Assigned Job Press Operator NEWTON Weeks DPOA/Assigned Designee Name omi Miramontes Contact Information [phone] Advance Directives? No Advance Directives on File No History Provided By Patient,Family Member,Medical Record Has Patient been admitted in last 30 No days? Prior Living Arrangements House Household Members children,none Type of transporation used prior to Relies on Others admit Comment uses [facility] for transportation Independent with ADL's No Is patient alert and oriented? Yes Needs Assistance With Bathing,Meal Prep,Managing Medications,Home Chores / Shopping Caregiver for Another No Community Services used prior to Physical Therapy,Home Health admission: Nurse DME Already Rented / Owned Wheelchair,FWW / Walker Comment Matthew and lift chair at home and getting new w/c and working towards hospital bed Patient/Family Preference Home with Home Health Barriers to Discharge Yes Comment Needs [facility] at d/c and they do not transport on Sundays. [facility] had concerns about enough care for pt at home Discharge Plan Home with Home Health Community Services Physical Therapy,Occupational Therapy,Home Health Aid,Home Health Nurse Transportation Arrangement [facility] Referrals Initiated Home Health Additional Comment Open with [facility], waiting to confirm they will accept back and likely new orders needed If patient plan is home with home health Yes : Has signed face to face form been completed? Medicare Choice List Provided Yes Medicare choice list reviewed on patient electronic tablet with SNF/HH [facility] Updated in [facility] Room with Yes name and ext. # of Job Press Operator Review Status In Process Please Provide Date Initial DC 06/23/24 Assessment Was Performed Next Review Type Continued Stay Review
[2024-06-23] MEDS: SODIUM CHLORIDE 0.9% 1,000 ML 70 ML IV (13:22)
--- NOTE | 2024-06-23 16:37 | EKG_ITS ---
[place] [address] [place] [id number] Test Date: 2024-06-23 Pat Name: Yared Houston Department: [facility] Room: 221 Gender: Male Center Sales And Service Associate: KORTNEY : 1955 Requested By: Order Number: [id number] Reading MD: Aaron Lunsford Measurements Intervals [place] Rate: 128 P: OK: QRS: -64 QRSD: 134 T: 15 QT: 342 QTc: 499 Interpretive Statements Atrial fibrillation with rapid ventricular response Right bundle branch block Left anterior fascicular block Bifascicular block Septal infarct , age undetermined Electronically Signed On 06-26-2024 20:12:07 PDT by Aaron Lunsford
--- NOTE | 2024-06-23 17:14 | DI.RAD.S_ITS ---
PROCEDURE: XR KUB INDICATIONS: obstipation TECHNIQUE: One view of the abdomen acquired. COMPARISON: [facility], CT, CT ABDOMEN PELVIS W CON, 06/22/2024, 16:26. FINDINGS: Surgical changes and devices: Left chest wall pacemaker is seen. There is prior left hip arthroplasty. Bowel: Air distended bowel loops throughout abdomen is seen with significant amount of fecal matter seen in distal sigmoid colon and rectum. No gross pneumoperitoneum. Soft tissues: No suspicious abdominal calcifications. Visualized solid organ contours appear normal in size. Bones: No suspicious bony lesions. IMPRESSION: Fecal impaction and air distended bowel loops throughout abdomen concerning for obstipation. No gross free air. Dictated by: Simone Keen M.D. on 06/23/2024 at 18:12 Approved by: Simone Keen M.D. on 06/23/2024 at 18:13
[2024-06-23] MEDS: METOPROLOL TARTRATE 5 MG/5 ML INJ IV (17:40)
[2024-06-23] MEDS: DOXYCYCLINE HYCLATE 100 MG TABLET PO (21:48)
[2024-06-23] MEDS: SODIUM CHLORIDE 0.9% FLUSH 10 ML IV (21:48)
[2024-06-24 00:38] VITALS: BP 120/70; PULSE 93; RESP 16; TEMP 36.3; O2SAT 92
[2024-06-24] MEDS: SODIUM CHLORIDE 0.9% 1,000 ML 70 ML IV ×2 (03:44→17:50)
[2024-06-24 05:18] VITALS: BP 105/56; PULSE 88; RESP 17; TEMP 36.1; O2SAT 100
[2024-06-24 07:00] VITALS: BP 117/62; PULSE 82; RESP 16; TEMP 36.1; O2SAT 94
[2024-06-24] MEDS: SODIUM CHLORIDE 0.9% FLUSH 10 ML IV ×2 (09:58→20:05)
[2024-06-24] MEDS: dilTIAZem CD 180 MG CAP PO (09:58)
[2024-06-24] MEDS: APIXABAN 5 MG TABLET PO ×2 (09:58→20:05)
[2024-06-24] MEDS: DOXYCYCLINE HYCLATE 100 MG TABLET PO ×2 (09:58→20:05)
[2024-06-24] MEDS: TAMSULOSIN 0.4 MG CAPSULE PO (09:58)
[2024-06-24] MEDS: ATORVASTATIN 20 MG TABLET 10 MG PO (09:58)
[2024-06-24 11:52] VITALS: BP 126/62; PULSE 102; RESP 20; TEMP 36.3; O2SAT 99
--- NOTE | 2024-06-24 11:55 | PC.NURSE ---
Addendum entered by Natasha Grant R.N. 06/24/24 15:43: Placed Allevyn gentle border dsgs to bilat inner thighs for moisture/stool protection. Original Note: Pt resting in bed. Pt has been incontinent of copious amounts of stool already this shift. Pt cleaned up thoroughly, bed bath, barrier cream, new gown and linens, bridging to off-load, waffle cushion to help protect Pt from further skin breakdown and heel booties applied to prevent heel breakdown. Pt states he is now comfortable. Bed alarm on for safety. Pt agrees to call for assistance as needed.
--- NOTE | 2024-06-24 15:37 | P.PN_ITS ---
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 In the ED, labs and vitals were acutely unremarkable. He was given mineral oil enema followed by manual disimpaction, then fleets enema, then soap suds enema then dulcolax suppository - all with almost no resolution. CT showed significant fecal impaction and colitis. He has no fever, leucocytosis, or left shift. He is being admitted for bowel prep for the constipation. Emergency room course: No significant pathology aside from dramatic amount of stool and air throughout his colon Mineral oil enema is placed with no return Manual bowel disimpaction was attempted however he has a large volume of very soft stool and there is nothing to grab onto to pull out Will place another enema and give him an oral laxative. Bowel motility clearly is the problem this is not significantly impacted and appears to be quite soft stool Fleets and soap suds enema as well as oral dlucolax. Still no urge to defecate. At this point this 69-year-old gentleman with significant post stroke deficits, mostly homebound, occasionally uses a wheelchair, chronic atrial fibrillation with anticoagulation, chronic kidney disease in the ER now for over 12 hours with the abdominal pain that appears to be significant constipation. Last bowel movement was 15 days ago. He now has had 3 enemas, attempts at manual bowel disimpaction and still has no urge to defecate. I believe we need to begin a full bowel prep. There has been some questions about care provided by his son at home given his significant debility after his stroke. Getting his bowels completely cleaned out in a safe manner will require more assistance than he has at home and hospitalization is recommended. Hospital course: 06/23: Patient having abdominal discomfort abdomen is tense still has not had bowel movement Was able to drink 0.5 gal of the GoLYTELY 06/24: Patient no longer having abdominal discomfort tolerating diet and still having frequent bowel movements Review of systems: No fevers or chills No difficulty swallowing No chest pain No palpitations No cough No shortness a breath No abdominal pain No nausea or vomiting Physical exam: Elderly male Bradyphrenic and bradykinetic but alert and aware of situation HEENT unremarkable Heart irregular rate no murmurs Lungs clear to auscultation Abdomen soft nontender with bowel sounds Assessment and plan: 1. Acute obstipation x15 days with non-infectious colitis, POA, likely contribute to by chronic pain on chronic opiate therapy. Relieved with Colyte with BM x5 Tolerating diet Discharge home in a.m. Sunday 06/25 2. Chronic microcytosis without anemia no further workup 3. Permanent atrial fibrillation, controlled, on Eliquis for secondary CVA prophylaxis resumed beta-dian and diltiazem combination which patient was taking at home 4. Hypertension, hyperlipidemia continue home medication 5. h/o CVA with resdual L-sided weakness no further complication with chronic expressive aphasia 6. COPD, stable 7. BPH Code: full FEN: cardiac diet DVT prophylaxis: SCDs 35 minutes spent with patient and on the chart (including review of chart, obtaining history, exam, reviewing outside data, placing orders, documenting exam and treatment plan, and counseling patient) Exam Vital Signs (past 8 hours): - 06/24/24 11:52 Temperature 97.3 F L Pulse Rate 102 H Respiratory Rate 20 Blood Pressure 126/62 Pulse Oximetry 99 Oxygen Flow Rate 0 Oxygen Delivery Method Room Air Oxygen Flow Rate 0 Objective Labs 06/23/24 04:40 06/23/24 04:40 [facility] Medical History CVA (cerebral vascular accident) (06/10/23) Dysphagia Normal cardiac ejection fraction (06/03/23) Aortic stenosis Chronic, continuous use of opioids Iron deficiency anemia following bariatric surgery BPH w/o urinary obs/LUTS DDD (degenerative disc disease), lumbar Pacemaker (2007) Allergic rhinitis Obstructive sleep apnea, adult Obesity (BMI 30-39.9) Hyperlipidemia Fatigue due to sleep pattern disturbance GERD (gastroesophageal reflux disease) Essential hypertension 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/20) Left inguinal hernia Chronic kidney disease (CKD) stage G3a/A1, moderately decreased glomerular filtration rate (GFR) between 45-59 mL/min/1.73 square meter and albuminuria creatinine ratio less than 30 mg/g Atrial fibrillation Surgical History S/P PICC central line placement (01/31/24) H/O Spinal surgery Hx of knee surgery (01/25/24) H/O total knee replacement H/O left inguinal hernia repair (03/20/20) History of cholecystectomy H/O gastric bypass Family History Family/Other Loud snoring Dementia Father Loud snoring Obesity Hypertension Heart disease Mother Loud snoring Obesity Hypertension Depression Anxiety Family/Other Hypertension Depression Social History household members: children and none alcohol intake: never Assessment & Plan Time-Based Coding :: [TOTAL MINUTES] spent with patient and on the chart (including review of chart, obtaining history, exam, reviewing outside data, placing orders, documenting exam and treatment plan, and counseling patient) on [DATE].
--- NOTE | 2024-06-24 15:50 | CM.DPNOTE ---
DCP note SUPERVISOR GARAGE reviewed EMR per provider in morning rounds, anticipate stable to dc tomorrow. Per RN to UR RN, pt now having non stop bowel movements. see RN notes for more. SUPERVISOR GARAGE called [facility], spoke with Isra ([phone]). Scheduled for transport between 1pm-3pm tomorrow, worm picker at the main entrance. CM team will call in am to narrow in worm picker time for pt to return home. need to clarify if pt has his wc here vs if para transit needs to bring a wheelchair. CM team to confirm with [facility] tomorrow if they are able to accept pt back or if new HH referrals are needed. Need to f/u with [facility] Apprentice Funeral Director vs APS for further DCP concerns day of dc. SUPERVISOR GARAGE unable to meet with pt today due to triaging needs. P: anticipate dc tomrorow home with son support and [facility] (pending they can resume), will send dc sum/f2f/orders as dc. [id number]. Will continue to follow close for DCP coordination NEWTON Gomez
[2024-06-24 17:00] VITALS: BP 128/55; PULSE 89; RESP 20; TEMP 36.1; O2SAT 97
[2024-06-24 20:24] VITALS: BP 129/69; PULSE 89; RESP 18; TEMP 36.3; O2SAT 96
[2024-06-25] VITALS: BP 127/68; PULSE 75; RESP 18; TEMP 36.2; O2SAT 94
--- NOTE | 2024-06-25 01:28 | PC.NURSE ---
Pt on tele reading tachy 157. Back down to low 100s. Notified doctor and ordered one time dose of metoprolol er 50.
[2024-06-25 01:54] VITALS: PULSE 112
[2024-06-25] MEDS: METOPROLOL ER 50 MG TABLET PO ×2 (01:54→08:50)
[2024-06-25 04:00] VITALS: BP 120/68; PULSE 103; RESP 18; TEMP 36.7; O2SAT 97
[2024-06-25 05:26] VITALS: BP 120/68; PULSE 103
[2024-06-25] MEDS: SODIUM CHLORIDE 0.9% 1,000 ML 70 ML IV (05:43)
[2024-06-25 08:00] VITALS: BP 116/70; PULSE 82; RESP 17; TEMP 36.2; O2SAT 96
[2024-06-25] MEDS: dilTIAZem CD 180 MG CAP PO (08:49)
[2024-06-25 08:50] VITALS: BP 116/70
[2024-06-25] MEDS: ATORVASTATIN 20 MG TABLET 10 MG PO (08:53)
[2024-06-25] MEDS: DOXYCYCLINE HYCLATE 100 MG TABLET PO (08:53)
[2024-06-25] MEDS: APIXABAN 5 MG TABLET PO (08:54)
[2024-06-25] MEDS: TAMSULOSIN 0.4 MG CAPSULE PO (08:54)
--- NOTE | 2024-06-25 09:11 | PM.DS.1 ---
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 In the ED, labs and vitals were acutely unremarkable. He was given mineral oil enema followed by manual disimpaction, then fleets enema, then soap suds enema then dulcolax suppository - all with almost no resolution. CT showed significant fecal impaction and colitis. He has no fever, leucocytosis, or left shift. He is being admitted for bowel prep for the constipation. Emergency room course: No significant pathology aside from dramatic amount of stool and air throughout his colon Mineral oil enema is placed with no return Manual bowel disimpaction was attempted however he has a large volume of very soft stool and there is nothing to grab onto to pull out Will place another enema and give him an oral laxative. Bowel motility clearly is the problem this is not significantly impacted and appears to be quite soft stool Fleets and soap suds enema as well as oral dlucolax. Still no urge to defecate. At this point this 69-year-old gentleman with significant post stroke deficits, mostly homebound, occasionally uses a wheelchair, chronic atrial fibrillation with anticoagulation, chronic kidney disease in the ER now for over 12 hours with the abdominal pain that appears to be significant constipation. Last bowel movement was 15 days ago. He now has had 3 enemas, attempts at manual bowel disimpaction and still has no urge to defecate. I believe we need to begin a full bowel prep. There has been some questions about care provided by his son at home given his significant debility after his stroke. Getting his bowels completely cleaned out in a safe manner will require more assistance than he has at home and hospitalization is recommended. Discharge Providers Provider Date of admission: 06/23/24 01:05 Discharge Date: 06/25/24 Primary care physician: Natasha Carroll MD Discharge provider: Aaron Lunsford DO Summary Hospital Course Discharge Diagnosis: 1. Acute obstipation x15 days with non-infectious colitis, POA, likely contribute to by chronic pain on chronic opiate therapy. 2. Chronic microcytosis without anemia no further workup 3. Permanent atrial fibrillation, controlled, on Eliquis for secondary CVA prophylaxis resumed beta-dian and diltiazem combination which patient was taking at home 4. Hypertension, hyperlipidemia continue home medication 5. h/o CVA with resdual L-sided weakness no further complication with chronic expressive aphasia 6. COPD, stable 7. BPH Hospital Course: 69 M with PMH of HTN, permanent afib, prior CVA, COPD, BPH admitted with obstipation and stercoral colitis. He was initiated on lactulose and golytely ultimately with improvement in symptoms and resumption of bowel function after a couple of days. He was feeling much improved, tolerating a diet at the time of discharge. Recommend he continue OTC laxatives and lactulose on discharge. No other changes were made to his home medications. Time Spent with Patient Time spent: Less than 30 minutes Exam Vital Signs (past 8 hours): - 06/25/24 01:54 06/25/24 04:00 06/25/24 05:26 Temperature 98.1 F Pulse Rate 112 H 103 H 103 H Respiratory Rate 18 Blood Pressure 120/68 120/68 Pulse Oximetry 97 Oxygen Flow Rate 06/25/24 08:00 06/25/24 08:50 Temperature 97.2 F L Pulse Rate 82 Respiratory Rate 17 Blood Pressure 116/70 116/70 Pulse Oximetry 96 Oxygen Flow Rate 0 Oxygen Delivery Method Room Air Oxygen Flow Rate 0 Narrative Exam Narrative: NAD, alert and oriented. Speech chronically slurred with word finding difficulties. Lungs are clear, normal rate and effort. Heart is regular, no murmur gallop or rub. Abdomen is soft, non distended. Extremities are free of edema. Objective Labs 06/23/24 04:40 06/23/24 04:40 [facility] Medical History CVA (cerebral vascular accident) (06/10/23) Dysphagia Normal cardiac ejection fraction (06/03/23) Aortic stenosis Chronic, continuous use of opioids Iron deficiency anemia following bariatric surgery BPH w/o urinary obs/LUTS DDD (degenerative disc disease), lumbar Pacemaker (2007) Allergic rhinitis Obstructive sleep apnea, adult Obesity (BMI 30-39.9) Hyperlipidemia Fatigue due to sleep pattern disturbance GERD (gastroesophageal reflux disease) Essential hypertension information consultant associated with adverse incidents (08/25/20) Left inguinal hernia Chronic kidney disease (CKD) stage G3a/A1, moderately decreased glomerular filtration rate (GFR) between 45-59 mL/min/1.73 square meter and albuminuria creatinine ratio less than 30 mg/g Atrial fibrillation Surgical History S/P PICC central line placement (01/31/24) H/O Spinal surgery Hx of knee surgery (01/25/24) H/O total knee replacement H/O left inguinal hernia repair (03/20/20) History of cholecystectomy H/O gastric bypass Family History Family/Other Loud snoring Dementia Father Loud snoring Obesity Hypertension Heart disease Mother Loud snoring Obesity Hypertension Depression Anxiety Family/Other Hypertension Depression Social History household members: children and none alcohol intake: never Discharge Plan Discharge Plan Patient Disposition: Home Health Service Provider Discharge Comment: You were admitted to the hospital with severe constipation. Now improved after laxative therapies. Continue lactulose as needed for no bowel movements for 2 days. You can also start over the counter laxatives daily including bisacodyl, polyethylene glycol (miralax) or sennakot daily. These medications are over the counter. Please stop laxatives if you're having >3 bowel movements in a day regularly. Discharge orders & Medications Prescriptions: New lactulose 10 gram/15 mL solution 20 g PO BID Qty: 3000 0RF Continued atorvastatin 10 mg tablet 10 mg PO DAILY doxycycline hyclate 100 mg capsule 100 mg PO BID tamsulosin 0.4 mg capsule 0.4 mg PO DAILY Qty: 30 0RF Eliquis 5 mg tablet 5 mg PO BID diltiazem HCl 180 mg capsule,extended release 24hr 180 mg PO DAILY cyclobenzaprine 10 mg tablet 10 mg PO 3XD PRN (Reason: msk pain) melatonin 3 mg Tablet 3 mg PO BEDTIME metoprolol succinate 50 mg Tablet Extended Release 24 Hr 50 mg PO DAILY Qty: 30 0RF pantoprazole 40 mg Tablet,Delayed Release (Dr/Ec) 40 mg PO DAILY Qty: 30 0RF nitroglycerin [Nitrostat] 0.4 mg Tablet, Sublingual 0.4 mg sublingual Q5M PRN (Reason: Chest Pain) Qty: 10 0RF docusate sodium 100 mg Capsule 100 mg PO BID Qty: 30 0RF Follow up/Referrals: Natasha Carroll MD [Primary Care Provider] - Diet/Activity/Treatments Diet: Diet as Tolerated and Regular Activity: As tolerated, no restrictions Visit Report/Discharge Packet Instructions: DI for Constipation, Lactulose Stand Alone Forms: Patient Portal/API, Stroke Signs & Symptoms Discharge Data Primary Care Provider: Natasha Carroll Attending Provider: Bright Stacy Admit Date/Time: 06/23/24 01:05
--- NOTE | 2024-06-25 12:35 | CM.DPNOTE ---
Addendum entered by Bailey Garcia, [place]ON 06/25/24 15:16: per Amisha at [facility], able to accept pt for care. Add to previous note; pt had initially given this MAPLE PRODUCTS SUPERVISOR permission to share son Kulwinder's contact information with [facility] staff for scheduling if they could accept the referral. SL Addendum entered by Bailey Garcia, [place]ON 06/25/24 13:31: Per RN that's had pt for past two days, Pt is very vocal (word aphasia from prior stroke so takes him a bit to get the words out but if given the time he does get his words out), He's A/O, a good advocator for himself with staff, expresses preferences and needs well, has not said anything to her or other staff this admission in regards to feeling unsafe, uncomfortable, or uncared for at home by son.?MAPLE PRODUCTS SUPERVISOR updated amisha at [facility] with this information SL Original Note: DCP note MAPLE PRODUCTS SUPERVISOR reviewed EMR per provider, cleared for dc home with HH and son support. MAPLE PRODUCTS SUPERVISOR confirmed with Brendon at [facility] transport at 1400, p/u at main entrance. MAPLE PRODUCTS SUPERVISOR updated RN on transport plan. MAPLE PRODUCTS SUPERVISOR spoke with pt's assigned APS background investigator Carey Rueda [phone] [email or web address]. confirm their is no current hold on pt being able to return to the home with son support. will follow up with family in home. MAPLE PRODUCTS SUPERVISOR emailed Carey relevant clinical information for her records. MAPLE PRODUCTS SUPERVISOR lvm with [facility] balance bridge inspector regarding pt's dc home today, referral previously made by other SW, see notes for more. MAPLE PRODUCTS SUPERVISOR updated Kulwinder (son) [phone] of pt's dc today. will bring pt's wheelchair to the hospital for [facility] to use. MAPLE PRODUCTS SUPERVISOR confirmed with Kenrick at [facility] able to accept pt back for services at approx 1030. MAPLE PRODUCTS SUPERVISOR completed HH order. Sent f2f/HH order/dc sum draft to [facility] via email. MAPLE PRODUCTS SUPERVISOR met with pt and son Kulwinder in room. pt confirmed does not want to dc to SNF, preference is home with [facility] services. report they have signed order from Natasha Carroll's office for hospital bed, working with [facility] on that now. denies other questions or needs at this time. MAPLE PRODUCTS SUPERVISOR heard from Lila Nurse at [facility] at approx 1130 that they are not actually able to accept back for services at this time due to concerns of safety in the home. confirmed by Loni, lead behavioral therapy coordinator from [facility]. (it is noted that per Katarzyna Weeks CM at [facility] confirmed on Tuesday they were able to accept pt back for services. Per Katarzyna at [facility] email from Tuesday to CM team I do not see any clear notes whether we will or will not take him back so I will enter the information in his chart for our team.? Please send orders at OR and we will follow up with any issues after our clinical team can discuss further this upcoming week) MAPLE PRODUCTS SUPERVISOR met with pt in room alone. updated on [facility] refusing to accept referral back. Pt upset, reports to this MAPLE PRODUCTS SUPERVISOR he feels safe and cared for in home by son. reports his only concern is about the hospital bed and son is helping facilitate that with PCP. Open to referral to [facility]. BRIT Minor kindly emailed Amisha at [facility] new referral information, acceptance pending. MAPLE PRODUCTS SUPERVISOR emailed Amisha with updates. P: dc today [facility] at 1400. HH pending acceptance with [facility]. APS/[employer] balance bridge inspector to follow in community. will continue to follow closely NEWTON Gomez
--- NOTE | 2024-06-25 14:12 | PC.NURSE ---
Pt ready for discharge home via [facility] with Home Health. IV has been removed. Hoyered Pt into his personal w/c and all belongings are packed up. Went over d/c instructions with Pt-discussed d/c meds, time of last dose, reviewed stroke education, s/s of stroke, encouraged Pt to drink plenty of fluids to prevent constipation or dehydration and to follow up at his already scheduled PCP appointment. Pt denied further questions and was taken out via w/c by PAPER PRODUCTION ENGINEER to [facility] with all belongings.
== END 2024-06-25 14:15 | disposition home health service (06) ==
LOC: ED 06-23 00:45 → AC 06-23 01:14
PROVIDERS: Admitting Provider Internal Medicine; Emergency Provider Emergency Medicine; PCP Internal Medicine; Visit Provider Internal Medicine
DX: K56.41 Fecal impaction (principal); J44.9 Chronic obstructive pulmonary disease, unspecified; I10 Essential (primary) hypertension; E78.5 Hyperlipidemia, unspecified; N40.0 Benign prostatic hyperplasia without lower urinary tract symptoms; I69.354 Hemiplegia and hemiparesis following cerebral infarction affecting left non-dominant side; G89.29 Other chronic pain; F11.20 Opioid dependence, uncomplicated; I48.20 Chronic atrial fibrillation, unspecified; Z99.3 Dependence on wheelchair; Z79.01 Long term (current) use of anticoagulants
CPT/HCPCS: 36415; 74018; 74177; 80048; 80053; 81003; 83690; 83735; 85025; 93005; 96361; 96374; 96375; 96376; 99284; G0378; J1171; Q9967

== ENCOUNTER → 2024-08-24 14:25 | Outpatient (CLI) | payer MEDICARE, SELFPAY ==
[2024-06-23 02:45] VITALS: BMI 33.2
[2024-08-24 15:41] LABS: Add Manual Diff / Slide Review NO; Basophils Absolute Auto 100 /uL (0-100); Basophils Percent Auto 1.3 % (0-2); Eosinophils Absolute Auto 200 /uL (0-450); Eosinophils Percent Auto 4.6 % (2-4); Hemoglobin 15.2 g/dL (13.5-17.5); Lymphocytes Absolute Auto 900 /uL (1100-4500); Lymphocytes Percent Auto 18.8 % (25-40); Mean Corpuscular HGB Conc 33.1 % (30-36); Mean Corpuscular Hemoglobin 27.1 PG (26-34); Mean Corpuscular Volume 81.9 fL (80-100); Monocytes Absolute Auto 300 /uL (0-900); Neutrophils Absolute Auto 3500 /uL (1500-7000); Neutrophils Percent Auto 69.3 % (50-75); Platelet Count 167 X10^3/uL (150-400); Red Blood Cell Count 5.61 X10^6/uL (4.5-5.9); Red Cell Distribution Width 22.7 % (11.6-14.8)
[2024-08-24 16:01] LABS: C-Reactive Protein Quant < 0.5 mg/dL (<1.0)
[2024-08-24 16:44] LABS: Anisocytosis 3+
== END ==
PROVIDERS: Internal Medicine Infectious Disease; PCP Family Medicine; Referring Provider Family Medicine; Visit Provider Family Medicine
DX: T84.59XD Infection and inflammatory reaction due to other internal joint prosthesis, subsequent encounter (principal); Y79.2 Prosthetic and other implants, materials and accessory orthopedic devices associated with adverse incidents; Z96.659 Presence of unspecified artificial knee joint
CPT/HCPCS: 36415; 85025; 86140

== ENCOUNTER 2024-11-01 14:24 | Inpatient (IN) | payer MEDICARE, SELFPAY ==
[2024-06-23 02:45] VITALS: BMI 33.2
[2024-11-01] VITALS (24 sets, daily range): BP systolic 101–136; BP diastolic 55–89; PULSE 69–142; RESP 11–37; TEMP 36.6; O2SAT 96–100; BMI 33.0
--- NOTE | 2024-11-01 16:05 | DI.CT.S_ITS ---
PROCEDURE: CT LE LT W CON INDICATIONS: RO osteo TECHNIQUE: Noncontrast 1-1.5 mm axial sections acquired from above the tibiotalar joint to the bottom of the calcaneus, with coronal and sagittal reformats. For radiation dose reduction, the following was used: automated exposure control, adjustment of mA and/or kV according to patient size. COMPARISON: [facility], CT, CT LE LT WO CON, 06/05/2023, 15:32. FINDINGS: Image quality: Excellent. Bones: Generalized bony demineralization. No acute cortical erosion is seen to suggest osteomyelitis. No acute fracture or dislocation. Scattered mild degenerative changes throughout the foot. Soft tissues: Nonspecific soft tissue edema surrounds the ankle. No focal fluid collection. No focal skin ulceration is seen. There is diffuse severe fatty infiltration of the visualized musculature compatible with chronic denervation changes. The articular cartilages, ligaments, tendons are not well evaluated with CT. IMPRESSION: Nonspecific subcutaneous edema. No abscess. No soft tissue gas. No signs of fasciitis or osteomyelitis. Approved by: Joselito Boyd M.D. on 11/01/2024 at 17:06
--- NOTE | 2024-11-01 16:05 | DI.CT.S_ITS ---
PROCEDURE: CT PEL WO CON INDICATIONS: osteo TECHNIQUE: Noncontrast 3 mm axial sections acquired through the bony pelvis, with coronal and sagittal reformatting. For radiation dose reduction, the following was used: automated exposure control, adjustment of mA and/or kV according to patient size. COMPARISON: [facility], CT, CT PEL WO CON, 08/12/2021, 13:32. [facility], CT, CT ABDOMEN PELVIS W CON, 06/22/2024, 16:26. FINDINGS: Image quality: Excellent. Bones: No acute osseous fracture or dislocation. No acute osseous erosions to suggest osteomyelitis. Postsurgical changes are seen in the included lower lumbar spine. A left total hip arthroplasty is present. No large left hip effusion or periarticular mass. Degenerative changes are seen at the right hip, sacroiliac joints, and spine. Soft tissues: No definite decubitus ulceration is seen. There is nonspecific subcutaneous edema or anasarca bilaterally. Prominent rectal stool with bowel wall thickening in the distal descending colon and rectum and perirectal fat stranding. Generalized atrophy and fatty infiltration of the visualized musculature. IMPRESSION: 1. No CT signs of osteomyelitis. No significant skin ulceration is seen. 2. Prominent stool in the rectum with wall thickening at the distal sigmoid colon and rectum as well as perirectal fat stranding, suspicious for stercoral colitis. Findings are slightly less severe when compared to the CT from 06/22/2024. Approved by: Joselito Boyd M.D. on 11/01/2024 at 17:02
--- NOTE | 2024-11-01 16:05 | DI.CT.S_ITS ---
PROCEDURE: CT LE RT WO CON INDICATIONS: rule out osteo of feet TECHNIQUE: Noncontrast 1-1.5 mm axial sections acquired from above the tibiotalar joint to the bottom of the calcaneus, with coronal and sagittal reformats. COMPARISON: [facility], CT, CT LE LT WO CON, 11/01/2024, 16:13. [facility], CT, CT LE LT WO CON, 06/05/2023, 15:32. FINDINGS: Image quality: Excellent. Bones: Alignment of right foot is anatomic. No acute fracture or dislocation. No gross bony erosion or abnormal periosteal reaction is seen to suggest osteomyelitis. Moderate osteoarthritic changes are noted throughout right foot with joint space narrowing, subchondral sclerosis and marginal osteophyte formation. No suspicious intraosseous lesion. Soft tissues: There is soft tissue swelling and edema surrounding distal lower leg extending to right ankle and foot. No discrete drainable fluid collection is seen. No subcutaneous emphysema. No abnormal soft tissue calcifications. No gross full- thickness extensor or flexor tendon rupture. IMPRESSION: 1. Suggestion of cellulitis in distal lower leg extending to right ankle and foot. No discrete drainable abscess collection. No soft tissue mass or abnormal soft tissue calcifications. No full-thickness tendon rupture. 2. Moderate osteoarthritic changes throughout right foot. No acute fracture or dislocation. No CT evidence of osteomyelitis. Dictated by: Simone Keen M.D. on 11/01/2024 at 20:52 Approved by: Simone Keen M.D. on 11/01/2024 at 20:57
--- NOTE | 2024-11-01 16:06 | DI.RAD.S_ITS ---
PROCEDURE: XR CHEST 1V INDICATIONS: sirs TECHNIQUE: One view of the chest was acquired. COMPARISON: [facility], CR, XR CHEST FOR PICC 1V, 01/31/2024, 14:28. FINDINGS: Surgical changes and devices: Pacemaker. Lungs and pleura: Lungs are clear. No pleural effusions or pneumothorax. Mediastinum: Mediastinal contours appear normal. Heart size is normal. Bones and chest wall: No suspicious bony lesions. Overlying soft tissues appear unremarkable. IMPRESSION: No acute pulmonary process. Dictated by: Abbi Gurrola M.D. on 11/01/2024 at 16:50 Approved by: Abbi Gurrola M.D. on 11/01/2024 at 16:50
--- NOTE | 2024-11-01 16:06 | EKG_ITS ---
[address] [address] Test Date: 2024-11-01 Pat Name: Yared Houston Department: [facility] Room: Gender: Male Abstractor: : 1955 Requested By: Order Number: [id number] Reading MD: Evans Mayorga MD Measurements Intervals [place] Rate: 77 P: TX: QRS: 237 QRSD: 184 T: 103 QT: 450 QTc: 509 Interpretive Statements Ventricular-paced rhythm with occasional premature ventricular complexes Electronically Signed On 11-02-2024 7:32:51 PDT by Evans Mayorga MD
[2024-11-01 16:18] LABS: INR 1.6 (0.9-1.3); Prothrombin Time 17.7 SECONDS (9.4-12.5)
--- NOTE | 2024-11-01 16:20 | PC.NURSE ---
incontinent care/luis fernando care provided to patient. patient was floated between two pillows and heel cushions @1600 and will be turned on evens.
[2024-11-01 16:24] LABS: Add Manual Diff / Slide Review NO; Hematocrit 47.2 % (41-53); Hemoglobin 16.2 g/dL (13.5-17.5); Lymphocytes Absolute Auto 900 /uL (1100-4500); Mean Corpuscular HGB Conc 34.3 % (30-36); Mean Corpuscular Hemoglobin 30.3 PG (26-34); Mean Corpuscular Volume 88.5 fL (80-100); PTT Partial Thromboplastin Tim 37 SECONDS (25.1-36.5); Platelet Count 175 X10^3/uL (150-400)
[2024-11-01 16:28] LABS: Lactate (Lactic Acid) 2.0 mmol/L (0.7-2.1)
[2024-11-01 16:44] LABS: HEMOLYSIS 20 (0-50); Procalcitonin < 0.030 ng/mL (<0.5)
--- NOTE | 2024-11-01 16:54 | PC.NURSE ---
This RN with two RAILWAY SHUNTER assisted patient in performing luis fernando care. Patient arrives soiled and in stool with paper denise stuck to patient bottom. Patient coccyx, luis fernando rectal and strotum are excoriated. Skin integrity is comprised with areas of blanchable and non blanchable. Entire area is cleaned with soap and water and pat dry. Areas of compromised skin are cleaned, dried, and covered with Allevyn foam Dressing. Four of these dressings that are 4x4 are placed on patient buttock. Patient has bilateral heel pressure ulcers. Areas on heels are cleaned with soap and water, dried and covered with Alleyvn dressing. Foam heel protectors are placed. Patient bilateral hips are floated with pillows and every two hour turns are put in place.
--- NOTE | 2024-11-01 17:08 | PC.RNWOUND ---
Attached are wound photos of patient coccyx, and luis fernando rectal area.
[2024-11-01 17:10] LABS: Coronavirus NL 63 Not Detected (Not Detect); SARS- CoV-2 Not Detected (Not Detecte)
--- NOTE | 2024-11-01 17:12 | PC.RNWOUND ---
These photos are from patient buttock.
[2024-11-01 17:24] LABS: Alanine Aminotransferase 18 IU/L (<50); Albumin 3.8 g/dL (3.5-5.0); Albumin Globulin Ratio 1.4 (1.0-2.8); Alkaline Phosphatase 96 U/L (38-126); Blood Urea Nitrogen 8 mg/dL (9-20); Calcium 9.3 mg/dL (8.4-10.2); Carbon Dioxide 26 mmol/L (22-32); Chloride 101 mmol/L (98-107); Estimated Glomerular Filt Rate > 60 mL/min (>60); Globulin 2.8 g/dL (1.7-4.1); Glucose 105 mg/dL (70-99); Potassium 4.2 mmol/L (3.4-5.1); Sodium 136 mmol/L (137-145); Total Protein 6.6 g/dL (6.3-8.2)
[2024-11-01 17:46] LABS: Appearance Urine UA CLEAR; Bilirubin Urine UA NEGATIVE (NEGATIVE); Color Urine UA YELLOW; Glucose Urine UA NEGATIVE (Negative); Ketones Urine UA NEGATIVE (NEGATIVE); Leukocyte Esterase Urine UA 3+ (NEGATIVE); Nitrite Urine UA POSITIVE (Negative); Occult Blood Urine UA NEGATIVE (Negative); Protein Urine UA NEGATIVE (Negative); Specific Gravity Urine UA <=1.005 (1.000-1.035); Urobilinogen Urine UA 1.0 E.U./dL (0.2); pH Urine UA 7.0 (4.5-8.0)
[2024-11-01 18:02] LABS: Culture Indicated Urine Specimen Cultured
--- NOTE | 2024-11-01 18:39 | ED.SKABFB ---
HPI - Skin/Abscess/Foreign Bdy General Chief complaint: Skin/Abscess/Foreign Body Stated complaint: Weakness/Bedsores Time Seen by Provider: 11/01/24 14:53 Source: patient and EMS Mode of arrival: EMS Limitations: no limitations History of Present Illness HPI narrative: 69-year-old gentleman history of expressive aphasia secondary to CVA brought in via EMS with neighbors concerned patient his being neglected at this time. Patient is a poor historian unable to give further evaluation at this time. Other than what is stated 14 pt ROS is negative. Related Data Home Medications ?Medication ?Instructions ?Recorded ?Confirmed apixaban 5 mg tablet (Eliquis) 5 mg PO BID 01/25/24 07/04/24 diltiazem HCl 180 mg 180 mg PO DAILY 01/25/24 07/04/24 capsule,extended release 24 hr doxycycline hyclate 100 mg capsule 100 mg PO BID 05/11/24 07/04/24 Previous Rx's ?Medication ?Instructions ?Recorded metoprolol succinate 50 mg 50 mg PO DAILY #30 tabs 03/20/24 tablet,extended release 24 hr nitroglycerin 0.4 mg sublingual 0.4 mg sublingual Q5M PRN Chest 03/20/24 tablet (Nitrostat) Pain #10 tabs pantoprazole 40 mg tablet,delayed 40 mg PO DAILY #30 tabs 03/20/24 release tamsulosin 0.4 mg capsule 0.4 mg PO DAILY #90 caps 07/04/24 Allergies Allergy/AdvReac Type Severity Reaction Status Date / Time NSAIDS (Non-Steroidal AdvReac Intermediate pt is not Verified 11/01/24 14:51 Anti-Inflamma (NSAIDS supposed (NON-STEROIDAL ANTI-INFLAMMA) to take them tramadol AdvReac Mild shakey Verified 11/01/24 14:51 Review of Systems Review of Systems ROS Unobtainable: All systems reviewed & are unremarkable except as noted in HPI and below Patient History Medical History History of pacemaker Hx of neurological disease History of COPD CVA (cerebral vascular accident) (06/10/23) Dysphagia Normal cardiac ejection fraction (06/03/23) Aortic stenosis Chronic, continuous use of opioids Iron deficiency anemia following bariatric surgery BPH w/o urinary obs/LUTS DDD (degenerative disc disease), lumbar Pacemaker (2007) Allergic rhinitis Obstructive sleep apnea, adult Obesity (BMI 30-39.9) Hyperlipidemia Fatigue due to sleep pattern disturbance GERD (gastroesophageal reflux disease) Essential hypertension pick remover associated with adverse incidents (08/25/20) Left inguinal hernia Chronic kidney disease (CKD) stage G3a/A1, moderately decreased glomerular filtration rate (GFR) between 45-59 mL/min/1.73 square meter and albuminuria creatinine ratio less than 30 mg/g Atrial fibrillation Surgical History History of colon surgery S/P PICC central line placement (01/31/24) H/O Spinal surgery Hx of knee surgery (01/25/24) H/O total knee replacement H/O left inguinal hernia repair (03/20/20) History of cholecystectomy H/O gastric bypass Family History Family/Other Loud snoring Dementia Father Loud snoring Obesity Hypertension Heart disease Mother Loud snoring Obesity Hypertension Depression Anxiety Cancer Family/Other Hypertension Depression Social History marital status: number of children: 2 household members: children and none Smoking Status: Never smoker alcohol intake: never caffeine: No Type(s) of exercise: irregular exercise and sedentary lifestyle frequency: decline to answer Smoking Status: Never smoker alcohol intake frequency: holidays/special occasions only Exam Narrative Exam Narrative: GENERAL: [69] year old patient appears stated age. Well-developed patient, in mild distress. HEAD: Atraumatic. Normocephalic. EYES: Pupils equal round and reactive. Extraocular motions intact. No scleral icterus. No injection or drainage. NECK: Trachea midline. Non tender CARDIOVASCULAR: Regular rate and rhythm without murmurs, gallops, or rubs. RESPIRATORY: Clear to auscultation. Breath sounds equal bilaterally. No wheezes, rales, or rhonchi. GASTROINTESTINAL: Abdomen soft, non-tender, nondistended. EXTREMITIES: No edema or joint tenderness. BACK: Nontender without deformity or crepitance. No flank tenderness. NEURO: AOx3. SKIN: RLE heel ulcer plantar aspect 3x3 red soft tissue swelling pain TTP. L heel 1x1 central superficial ulceration. Buttocks and coccyx - 3 areas of superficial sacral ulcers Initial Vital Signs Initial Vital Signs: Vital Signs Pulse Rate 85 11/01/24 14:39 Pulse Oximetry 98 11/01/24 14:39 Course Orders Ordered: ED Orders 11/01/24 14:40 Complete Blood Count AUTO DIFF Stat Comprehensive Metabolic Panel Stat Lactate (Lactic Acid) Stat PTT Partial Thromboplastin Pan Stat Procalcitonin Stat Prothrombin Time INR Stat 11/01/24 14:58 Consult to ONLINE MEDIA BUYER - Tack Picker Stat 11/01/24 16:05 CT LE LT wo con Stat CT LE RT wo con Stat CT pelvis wo con Stat 11/01/24 16:06 XR chest 1V Stat EKG-12 Lead Stat 11/01/24 16:17 Respiratory Panel (Film Array) Stat 11/01/24 17:05 Blood Culture Stat 11/01/24 17:36 Urinalysis and Microscopic Stat Urine Culture Stat Discontinued Medications Lactated Ringer's (Lactated Ringers) 1,000 mls @ 1,000 mls/hr IV BOLUS ONE Stop: 11/01/24 19:39 Last Infusion: 11/01/24 22:07 Dose: Infused Documented By: Admin: 11/01/24 19:04 Dose: 1,000 mls/hr Documented By: MELODIE Ceftriaxone Sodium 2,000 mg/ (Sodium Chloride) 100 mls @ 200 mls/hr IV NOW ONE Stop: 11/01/24 18:41 Last Infusion: 11/01/24 20:00 Dose: Infused Documented By: Admin: 11/01/24 19:04 Dose: 200 mls/hr Documented By: MELODIE Vital Signs Vital signs: Vital Signs - 8 hr 11/01/24 15:00 11/01/24 15:00 11/01/24 15:30 Pulse Rate 97 H Respiratory Rate 19 Blood Pressure 115/59 L 109/57 L Pulse Oximetry 99 11/01/24 15:30 11/01/24 16:05 11/01/24 16:05 Pulse Rate 95 H 80 Respiratory Rate 19 21 Blood Pressure 115/62 Pulse Oximetry 98 96 11/01/24 16:36 11/01/24 17:00 11/01/24 17:09 Pulse Rate 96 H 78 Respiratory Rate 14 28 H Blood Pressure 112/67 Pulse Oximetry 97 98 11/01/24 17:09 11/01/24 17:30 11/01/24 17:30 Pulse Rate 79 69 Respiratory Rate 23 Blood Pressure 118/59 L Pulse Oximetry 98 99 11/01/24 18:00 11/01/24 18:00 11/01/24 18:30 Pulse Rate 69 69 Respiratory Rate 19 17 Blood Pressure 101/58 L Pulse Oximetry 98 98 11/01/24 18:30 11/01/24 19:00 11/01/24 19:00 Pulse Rate 75 Respiratory Rate 18 Blood Pressure 120/63 119/60 Pulse Oximetry 99 11/01/24 19:30 11/01/24 19:30 11/01/24 20:00 Pulse Rate 78 77 Respiratory Rate 33 H 37 H Blood Pressure 136/89 Pulse Oximetry 99 98 11/01/24 20:01 11/01/24 20:01 11/01/24 20:30 Pulse Rate 77 Respiratory Rate 28 H Blood Pressure 123/59 L 124/58 L Pulse Oximetry 98 11/01/24 20:30 11/01/24 21:00 11/01/24 21:00 Pulse Rate 72 71 Respiratory Rate 13 Blood Pressure 103/55 L Pulse Oximetry 99 98 11/01/24 21:30 11/01/24 21:30 11/01/24 22:00 Pulse Rate 74 Respiratory Rate 18 Blood Pressure 117/59 L 122/59 L Pulse Oximetry 98 11/01/24 22:00 Pulse Rate 73 Respiratory Rate 18 Blood Pressure Pulse Oximetry 99 MDM - Skin/Abscess/Foreign Bdy Lab Data 11/01/24 14:40 11/01/24 14:40 Labs: Lab Results 11/01/24 11/01/24 11/01/24 Range/Units 14:40 16:17 17:36 WBC 5.1 (4.5-11.0) X10^3/uL RBC 5.34 (4.5-5.9) X10^6/uL Hgb 16.2 (13.5-17.5) g/dL Hct 47.2 (41-53) % MCV 88.5 (80-100) fL MCH 30.3 (26-34) PG MCHC 34.3 (30-36) % RDW 16.0 H (11.6-14.8) % Plt Count 175 (150-400) X10^3/uL Neut % (Auto) 71.3 (50-75) % Lymph % (Auto) 18.4 L (25-40) % [place] % (Auto) 6.6 (3-14) % Eos % (Auto) 2.8 (2-4) % Baso % (Auto) 0.9 (0-2) % Neut # (Auto) 3600 (8021-2841) /uL Lymph # (Auto) 900 L (2340-1461) /uL [place] # (Auto) 300 (0-900) /uL Eos # (Auto) 100 (0-450) /uL Baso # (Auto) 0 (0-100) /uL PT 17.7 H (9.4-12.5) SECONDS INR 1.6 H (0.9-1.3) APTT 37 H (25.1-36.5) SECONDS Sodium 136 L (137-145) mmol/L Potassium 4.2 (3.4-5.1) mmol/L Chloride 101 (98-107) mmol/L Carbon Dioxide 26 (22-32) mmol/L BUN 8 L (9-20) mg/dL Creatinine 0.66 (0.66-1.25) mg/dL Estimated GFR > 60 (>60) mL/min BUN/Creatinine Ratio 12.1 (6-22) Glucose 105 H (70-99) mg/dL Lactate 2.0 (0.7-2.1) mmol/L Calcium 9.3 (8.4-10.2) mg/dL Total Bilirubin 0.9 (0.2-1.3) mg/dL AST 36 (17-59) IU/L ALT 18 (<50) IU/L Alkaline Phosphatase 96 (38-126) U/L Total Protein 6.6 (6.3-8.2) g/dL Albumin 3.8 (3.5-5.0) g/dL Globulin 2.8 (1.7-4.1) g/dL Albumin/Globulin Ratio 1.4 (1.0-2.8) Procalcitonin < 0.030 (<0.5) ng/mL Urine Color Yellow Urine Appearance Clear Urine pH 7.0 (4.5-8.0) Ur Specific [place] <=1.005 (1.000-1.035) Urine Protein Negative (Negative) Urine Glucose (UA) Negative (Negative) g/dL Urine Ketones Negative (NEGATIVE) Urine Occult Blood Negative (Negative) Urine Nitrate Positive H (Negative) Urine Bilirubin Negative (NEGATIVE) Urine Urobilinogen 1.0 (0.2) E.U./dL Ur Leukocyte Esterase 3+ H (NEGATIVE) Urine RBC None seen (0-5/HPF) Urine WBC 10-30/hpf H (0-5/HPF) Ur Squamous Epith Cells 0-1 /hpf (0-5/HPF) Urine Bacteria Many (>30) H (None) Ur Culture Indicated? Specimen cultured Vol Urine Centrifuged 10ml (spun) Chlamy pneumoniae PCR Not detected (Not Detect) Adenovirus (PCR) Not detected (Not Detect) B. pertussis DNA (PCR) Not detected (Not Detect) B.parapertussis DNA PCR Not detected (Not Detecte) Coronavirus OC43 (PCR) Not detected (Not Detect) Coronavirus HKU1 (PCR) Not detected (Not Detect) Coronavirus 229E (PCR) Not detected (Not Detect) SARS-CoV-2 (PCR) Not detected (Not Detecte) Coronavirus NL63 (PCR) Not detected (Not Detect) Human Metapneumovir PCR Not detected (Not Detect) Influenza Type A (PCR) Not detected (Not Detect) Influenza Type B (PCR) Not detected (Not Detect) M. pneumoniae (PCR) Not detected (Not Detect) Parainfluenza 1 (PCR) Not detected (Not Detect) Parainfluenza 2 (PCR) Not detected (Not Detect) Parainfluenza 3 (PCR) Not detected (Not Detect) Parainfluenza 4 (PCR) Not detected (Not Detect) RSV (PCR) Not detected (Not Detect) Entero/Rhino (PCR) Not detected (Not Detect) Imaging Data Chest x-ray: Radiologist's Impression: [address] [address] XRay Report Signed Patient: Yared Houston MR#: [id number] : 1955 Acct:[id number] Age/Sex: 69 / M Date of Service: 11/01/24 Loc: ED Accession Number: [id number] Procedure: XR chest 1V Ordering Provider: Joel Lewis MD PROCEDURE: XR CHEST 1V INDICATIONS: sirs TECHNIQUE: One view of the chest was acquired. COMPARISON: [facility], CR, XR CHEST FOR PICC 1V, 01/31/2024, 14:28. FINDINGS: Surgical changes and devices: Pacemaker. Lungs and pleura: Lungs are clear. No pleural effusions or pneumothorax. Mediastinum: Mediastinal contours appear normal. Heart size is normal. Bones and chest wall: No suspicious bony lesions. Overlying soft tissues appear unremarkable. IMPRESSION: No acute pulmonary process. CT scan - abdomen/pelvis: Radiologist's Impression: [address] [address] [address] Scan Report Signed Patient: Yared Houston MR#: [id number] : 1955 Acct:[id number] Age/Sex: 69 / M Date of Service: 11/01/24 Loc: ED Accession Number: [id number] Procedure: CT pelvis wo con Ordering Provider: Joel Lewis MD PROCEDURE: CT PEL WO CON INDICATIONS: osteo TECHNIQUE: Noncontrast 3 mm axial sections acquired through the bony pelvis, with coronal and sagittal reformatting. For radiation dose reduction, the following was used: automated exposure control, adjustment of mA and/or kV according to patient size. COMPARISON: [facility], CT, CT PEL WO CON, 08/12/2021, 13:32. [facility], CT, CT ABDOMEN PELVIS W CON, 06/22/2024, 16:26. FINDINGS: Image quality: Excellent. Bones: No acute osseous fracture or dislocation. No acute osseous erosions to suggest osteomyelitis. Postsurgical changes are seen in the included lower lumbar spine. A left total hip arthroplasty is present. No large left hip effusion or periarticular mass. Degenerative changes are seen at the right hip, sacroiliac joints, and spine. Soft tissues: No definite decubitus ulceration is seen. There is nonspecific subcutaneous edema or anasarca bilaterally. Prominent rectal stool with bowel wall thickening in the distal descending colon and rectum and perirectal fat stranding. Generalized atrophy and fatty infiltration of the visualized musculature. IMPRESSION: 1. No CT signs of osteomyelitis. No significant skin ulceration is seen. 2. Prominent stool in the rectum with wall thickening at the distal sigmoid colon and rectum as well as perirectal fat stranding, suspicious for stercoral colitis. Findings are slightly less severe when compared to the CT from 06/22/2024. Extremity x-ray #1: Radiologist's Impression: [address] [address] [address] Scan Report Signed Patient: Yared Houston MR#: [id number] : 1955 Acct:[id number] Age/Sex: 69 / M Date of Service: 11/01/24 Loc: ED Accession Number: [id number] Procedure: CT LE RT wo con Ordering Provider: Joel Lewis MD PROCEDURE: CT LE RT WO CON INDICATIONS: rule out osteo of feet TECHNIQUE: Noncontrast 1-1.5 mm axial sections acquired from above the tibiotalar joint to the bottom of the calcaneus, with coronal and sagittal reformats. COMPARISON: [facility], CT, CT LE LT WO CON, 11/01/2024, 16:13. [facility], CT, CT LE LT WO CON, 06/05/2023, 15:32. FINDINGS: Image quality: Excellent. Bones: Alignment of right foot is anatomic. No acute fracture or dislocation. No gross bony erosion or abnormal periosteal reaction is seen to suggest osteomyelitis. Moderate osteoarthritic changes are noted throughout right foot with joint space narrowing, subchondral sclerosis and marginal osteophyte formation. No suspicious intraosseous lesion. Soft tissues: There is soft tissue swelling and edema surrounding distal lower leg extending to right ankle and foot. No discrete drainable fluid collection is seen. No subcutaneous emphysema. No abnormal soft tissue calcifications. No gross full-thickness extensor or flexor tendon rupture. IMPRESSION: 1. Suggestion of cellulitis in distal lower leg extending to right ankle and foot. No discrete drainable abscess collection. No soft tissue mass or abnormal soft tissue calcifications. No full-thickness tendon rupture. 2. Moderate osteoarthritic changes throughout right foot. No acute fracture or dislocation. No CT evidence of osteomyelitis. Extremity x-ray #2: Radiologist's Impression: [address] [address] [address] Scan Report Signed Patient: Yared Houston MR#: [id number] : 1955 Acct:[id number] Age/Sex: 69 / M Date of Service: 11/01/24 Loc: ED Accession Number: [id number] Procedure: CT LE LT wo con Ordering Provider: Joel Lewis MD PROCEDURE: CT LE LT W CON INDICATIONS: RO osteo TECHNIQUE: Noncontrast 1-1.5 mm axial sections acquired from above the tibiotalar joint to the bottom of the calcaneus, with coronal and sagittal reformats. For radiation dose reduction, the following was used: automated exposure control, adjustment of mA and/or kV according to patient size. COMPARISON: [facility], CT, CT LE LT WO CON, 06/05/2023, 15:32. FINDINGS: Image quality: Excellent. Bones: Generalized bony demineralization. No acute cortical erosion is seen to suggest osteomyelitis. No acute fracture or dislocation. Scattered mild degenerative changes throughout the foot. Soft tissues: Nonspecific soft tissue edema surrounds the ankle. No focal fluid collection. No focal skin ulceration is seen. There is diffuse severe fatty infiltration of the visualized musculature compatible with chronic denervation changes. The articular cartilages, ligaments, tendons are not well evaluated with CT. IMPRESSION: Nonspecific subcutaneous edema. No abscess. No soft tissue gas. No signs of fasciitis or osteomyelitis. MDM Narrative Medical decision making narrative: All lab work, vital signs, nurse triage note, medication list, previous ER visits, and all imaging studies reviewed. CT lower R leg 1. Suggestion of cellulitis in distal lower leg extending to right ankle and foot. No discrete drainable abscess collection. No soft tissue mass or abnormal soft tissue calcifications. No full-thickness tendon rupture. 2. Moderate osteoarthritic changes throughout right foot. No acute fracture or dislocation. No CT evidence of osteomyelitis. CT lower L leg IMPRESSION: Nonspecific subcutaneous edema. No abscess. No soft tissue gas. No signs of fasciitis or osteomyelitis. Chest x-ray showed no acute process. Pelvic CT IMPRESSION: 1. No CT signs of osteomyelitis. No significant skin ulceration is seen.2. Prominent stool in the rectum with wall thickening at the distal sigmoid colon and rectum as well as perirectal fat stranding, suspicious for stercoral colitis. Findings are slightly less severe when compared to the CT from 06/22/2024. Patient given fluids and Rocephin here. WBC 5.1, INR 1.6 NA 136 Glu 105 Procalcitonin <0.03. UA showed positive nitrites 3 leuks 10-30 WBC many bacteria. Case d/w who has graciously accepted pt for admission. Discharge Plan Departure Patient Disposition: Admitted as Observation Clinical Impression: Weak Cellulitis Qualifiers: Site of cellulitis: extremity Site of cellulitis of extremity: lower extremity Laterality: right Qualified Code(s): L03.115 - Cellulitis of right lower limb Admit Date/Time: 11/01/24 22:55 Admit Provider: Bright Stacy
--- NOTE | 2024-11-01 18:48 | CM.SWNOTE ---
ED STEWARD/STEWARDESS DECK Note Patient is 69 y/o male who presents to ED via EMS after concerned neighbor called 911. It is reported that there is concerns for bed sores, increased weakness and concern for patient's level of care at home. it is reported that patient has been stuck in recliner for two weeks, patient reports that the recliner is broken and patient needs a replacement. Patient endorses he feels safe at home but does not necessarily feel safe returning home due to care limitation. EMS reports they are making an APS report due to these concerns. Patient's PCP is Natasha Carroll, Patient has [employer] [facility]/ [employer] insurance. Patient has hx of COPD, CVA, residual weakness, and aphasia. STEWARD/STEWARDESS DECK enters room to meet with patient. Patient presents as A/Ox4, slow to speak due to concern for aphasia and difficulty word finding. Patient presents as coherent and endorses that he is able to advocate and communicate his needs at home. Patient resides at home in [place] with his adult son Kulwinder, patient's spouse in February 2024. Patient is dependent on assistance from son, he reports that son assists with food, medication and assistance as needed. Patient reports that son is not able to assist with transfers. Patient has had marnie lift at home. Patient is not able to ambulate and has been in his recliner. Patient states that he uses briefs for toileting. Patient states that someone from [facility] comes once a week for 5 hours to assist with caregiving and hygiene needs and provides caregiver training to patient's son. Patient relies on paratransit for transportation. Patient has hx of SNF rehab stay at [facility], most recently patient has hx of [facility] services in June 2024. Patient endorses that he does not have funds to afford a private pay caregiver or resides at an assisted living facility. Patient owns the home he resides in and will likely not qualify for Medicaid. Patient states he is open to new HH referral if he is returning home but states that HH is a short term service. Patient denies any local natural supports. Patient endorses that he does not have a DPOA. Patient continues to state that he trusts his son, feels safe with his son but does not feel safe or comfortable returning home given that his needs are more than his son can manage and patient is in need of another recliner. Community [employer] Officer Freedom Zhao has been involved with patient, current referral in place. STEWARD/STEWARDESS DECK calls Freedom Zhao and leaves regarding patient presentation and information about patient's needs. STEWARD/STEWARDESS DECK reviews patient with ED provider, ED provider has not yet evaluated patient, awaiting medical clearance and disposition pending at this time. Plan: Disposition pending, [employer] Officer to f/u with patient, APS to f/u with patient and son, LTC vs. home with HH and new DME. SHARLENE EsparzaSW
[2024-11-01] MEDS: LACTATED RINGERS 1,000 ML 1000 ML IV (19:04)
[2024-11-01] MEDS: cefTRIAXone 2,000 MG in SODIUM CHLORIDE 0.9% 100 ML 200 MG IV (19:04)
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
[2024-11-02 00:36] VITALS: BMI 33.0
[2024-11-02 05:00] VITALS: BP 98/56; PULSE 81; RESP 18; TEMP 36.2; O2SAT 95
[2024-11-02 06:09] LABS: Add Manual Diff / Slide Review NO; Hematocrit 43.0 % (41-53); Hemoglobin 14.8 g/dL (13.5-17.5); Lymphocytes Absolute Auto 1000 /uL (1100-4500); Mean Corpuscular HGB Conc 34.4 % (30-36); Mean Corpuscular Hemoglobin 30.5 PG (26-34); Mean Corpuscular Volume 88.5 fL (80-100); Platelet Count 163 X10^3/uL (150-400)
[2024-11-02 06:18] LABS: Blood Urea Nitrogen 7 mg/dL (9-20); Calcium 8.9 mg/dL (8.4-10.2); Carbon Dioxide 25 mmol/L (22-32); Chloride 102 mmol/L (98-107); Estimated Glomerular Filt Rate > 60 mL/min (>60); Glucose 85 mg/dL (70-99); HEMOLYSIS 21 (0-50); Magnesium 1.8 mg/dL (1.6-2.3); Potassium 3.8 mmol/L (3.4-5.1); Sodium 135 mmol/L (137-145)
[2024-11-02] MEDS: DOXYCYCLINE 100 MG in SODIUM CHLORIDE 0.9% 100 ML IV ×2 (06:42→18:38)
[2024-11-02 08:00] VITALS: BP 105/52; PULSE 94; RESP 19; TEMP 35.9; O2SAT 95
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
--- NOTE | 2024-11-02 14:29 | OT.IPNOTE ---
Per pt has been bed bound and prior was having son use marnie lift with him. Pt needing assist for most ADL needs. Per pt, his son no longer able to care for him. Pt is a better fit for senior living care at this time.
--- NOTE | 2024-11-02 14:30 | PT-IP ANOTE ---
Saw pt at bedside. He states his son can no longer care for him. They have been using a mechanical lift at home but otherwise he reports being bedridden since discharge from [facility] about 7 months ago. He is therefore currently at his baseline for physical functioning. Physical therapy is not indicated at this time.
--- NOTE | 2024-11-02 15:07 | DIET.CONS ---
Addendum entered by Marguerite Mcdonald 11/02/24 16:26: Ensure max chocolate - not vanilla- per pt preferences Original Note: Dietary Consultation Note Admission Date: 11/01/2024 22:55 Assessment: 69 y M admitted for cellulitis and pressure ulcers. Dietitian screened per hospitalist diagnosing pt with severe malnutrition. Hospitalist would like to start protein supplementation d/t suspecting some component of malabsorption based on PMH of gastric bypass and severe malnutrition with anasarca Met with pt at bedside. Reports 2 meals normally per day. Eggs, fruit, and light yogurt for breakfast and typical dinner with meat and starch. No changes in appetite, no changes in amount of food being consumed. Does note he is eating much more food here. NFPE showing moderate temporalis and deltoid and pectoralis major muscle wasting Ht: 182.88 cm Wt: 110.677 kg BMI: 33.0 UBW: 115.66 kg on 01/25/24, 107 kg on 06/07/24, pt reports UBW of 105 kg Last BM: 11/02/24 (11/02/24 00:36) MNA: Boogie Score: 14 Diet: 11/02/24 Breakfast Heart Healthy Diet Diet Modifications: Nutrition Percent Meal Consumed 85 11/02/24 09:00 Labs: RBC 4.85 X10^6/uL (4.5-5.9) 11/02/24 05:01 Hgb 14.8 g/dL (13.5-17.5) 11/02/24 05:01 Hct 43.0 % (41-53) 11/02/24 05:01 Creatinine 0.58 mg/dL (0.66-1.25) L 11/02/24 05:01 Lactate 2.0 mmol/L (0.7-2.1) 11/01/24 14:40 Nutrition Diagnosis: Severe acute protein calorie malnutrition r/t altered GI function/structure and increased nutrient needs (protein) as evidenced by moderate to severe muscle wasting in temples, deltoid, pectorlis major and <75% of estimated protein needs, anasarca Interventions: Ensure Max vanilla trial - liquids in cup with lid and straw Discussed protein sources and increased needs EER: 1800kcals (15 kcals/kg per BMI vs MSJ) 100 g protein (1.25 g/kg adjusted IBW per wounds and PCM) Monitoring/Evaluations: Ensure tolerance Electronically Signed by: Marguerite Mcdonald 11/02/24 15:07 Clinical Dietitian [address] [id number]
[2024-11-02 20:00] VITALS: BP 101/60; PULSE 114; RESP 18; TEMP 36.1; O2SAT 97
[2024-11-02] MEDS: APIXABAN 5 MG TABLET PO (20:54)
[2024-11-02] MEDS: SODIUM CHLORIDE 0.9% FLUSH 10 ML IV (20:59)
[2024-11-03] VITALS (8 sets, daily range): BP systolic 101–122; BP diastolic 55–74; PULSE 77–108; RESP 12–20; TEMP 35.9–36.6; O2SAT 95–97
[2024-11-03] MEDS: DOXYCYCLINE 100 MG in SODIUM CHLORIDE 0.9% 100 ML IV ×2 (06:26→19:02)
[2024-11-03] MEDS: METOPROLOL ER 50 MG TABLET PO (09:59)
[2024-11-03] MEDS: PANTOPRAZOLE DR 40 MG TABLET PO (09:59)
[2024-11-03] MEDS: TAMSULOSIN 0.4 MG CAPSULE PO (09:59)
[2024-11-03] MEDS: APIXABAN 5 MG TABLET PO ×2 (09:59→20:28)
[2024-11-03] MEDS: SODIUM CHLORIDE 0.9% FLUSH 10 ML IV ×2 (10:02→20:28)
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
[2024-11-04 00:28] VITALS: BP 107/57; PULSE 73; RESP 17; TEMP 36.2; O2SAT 95
[2024-11-04 04:13] VITALS: BP 97/59; PULSE 86; RESP 17; TEMP 36; O2SAT 96
[2024-11-04] MEDS: DOXYCYCLINE 100 MG in SODIUM CHLORIDE 0.9% 100 ML IV ×2 (06:26→18:56)
[2024-11-04 08:00] VITALS: BP 110/59; PULSE 79; RESP 15; TEMP 36.4; O2SAT 95
[2024-11-04] MEDS: APIXABAN 5 MG TABLET PO ×2 (09:58→20:30)
[2024-11-04] MEDS: PANTOPRAZOLE DR 40 MG TABLET PO (09:58)
[2024-11-04] MEDS: TAMSULOSIN 0.4 MG CAPSULE PO (09:58)
[2024-11-04] MEDS: METOPROLOL ER 50 MG TABLET PO (09:58)
[2024-11-04] MEDS: SODIUM CHLORIDE 0.9% FLUSH 10 ML IV ×2 (09:58→20:31)
--- NOTE | 2024-11-04 10:35 | PT-IP ANOTE ---
PT receives a second PT consult. Pt required mechanical lift for OOB at baseline and this has been the case at least since March of 2024 when PT reviews last PT note from that adm and also per recent PT note. Discussed with SW and will d/c PT order.
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
[2024-11-04 16:00] VITALS: BP 113/63; PULSE 92; RESP 16; TEMP 35.7; O2SAT 97
--- NOTE | 2024-11-04 16:35 | CM.DPC ---
DCP Cont According to PT; patient at his functional baseline. Patient has been marnie lift since March. Dr Jean Baptiste strongly suggests SNF at [place]; not safe to return home at this time. Referral discussed with [facility]; likely need for wound care and IV abx. Anita considering. Send updated chart notes to Anita at with information about wound care and IV abx need- Anita needs to submit auth (if patient is accepted) to [facility]. SW team still to consider: APS report (?). Discussion with patient about dispo options. Continued coordiantion with [facility] admissions. PASRR needed if SNF. [facility]UST[facility] team following closely. LESTER
[2024-11-04 19:00] VITALS: BP 101/62; PULSE 77; RESP 18; TEMP 36.1; O2SAT 97
[2024-11-04] MEDS: SENNOSIDES 8.6 MG TABLET PO (20:30)
[2024-11-05] MEDS: ACETAMINOPHEN 325 MG TABLET 650 MG PO (00:18)
[2024-11-05 03:00] VITALS: BP 102/64; PULSE 77; RESP 18; TEMP 36.4; O2SAT 95
[2024-11-05] MEDS: DOXYCYCLINE 100 MG in SODIUM CHLORIDE 0.9% 100 ML IV ×2 (06:28→18:46)
[2024-11-05 08:00] VITALS: BP 110/60; PULSE 83; RESP 17; TEMP 36.2; O2SAT 95
[2024-11-05] MEDS: TAMSULOSIN 0.4 MG CAPSULE PO (09:52)
[2024-11-05] MEDS: APIXABAN 5 MG TABLET PO ×2 (09:52→20:32)
[2024-11-05] MEDS: PANTOPRAZOLE DR 40 MG TABLET PO (09:52)
[2024-11-05] MEDS: METOPROLOL ER 50 MG TABLET PO (09:52)
[2024-11-05] MEDS: SODIUM CHLORIDE 0.9% FLUSH 10 ML IV ×2 (09:53→20:32)
--- NOTE | 2024-11-05 11:20 | PC.NURSE ---
Patients bottom looking better this morning, cream applied to both sides. We have been repositioning patient every 2 hours. He is eating well at meals. He has two heal protectors on each heel, patient has some breakdown/blistered area's to each heal, left is worse than right. Heel protectors are helping patient. He is listening to his audio books now.
[2024-11-05 16:00] VITALS: BP 107/55; PULSE 86; RESP 16; TEMP 36; O2SAT 96
--- NOTE | 2024-11-05 16:07 | DIET.PN1 ---
Dietary Progress Note Assessment: f/u Tolerating 75-100% of PO intakes. DFM reviewed for meal composition. Continue Ensure Max 1x/d. Ht: 182.88 cm Wt: 110.677 kg BMI: 33.0 Last BM: 11/02/24 (11/02/24 00:36) MNA: Boogie Score: 16 Diet: 11/02/24 Breakfast Heart Healthy Diet Diet Modifications: Nutrition Percent Meal Consumed 90 11/05/24 14:00 Percent Meal Consumed 75% 11/04/24 18:38 Percent Meal Consumed 100% 11/04/24 13:00 Percent Meal Consumed 100% 11/03/24 18:00 Labs: RBC 4.85 X10^6/uL (4.5-5.9) 11/02/24 05:01 Hgb 14.8 g/dL (13.5-17.5) 11/02/24 05:01 Hct 43.0 % (41-53) 11/02/24 05:01 Creatinine 0.58 mg/dL (0.66-1.25) L 11/02/24 05:01 Lactate 2.0 mmol/L (0.7-2.1) 11/01/24 14:40 Electronically Signed by: Marguerite Mcdonald 11/05/24 16:07 Clinical Dietitian [address] [id number]
--- NOTE | 2024-11-05 16:59 | PC.NURSE ---
Patients has two waffle boots on for blistered area's to the back of his heels. Area's are looking better. Patient is being repositioned every 2 hours.
[2024-11-05 20:00] VITALS: BP 110/60; PULSE 83; RESP 20; TEMP 36.2; O2SAT 97
[2024-11-05] MEDS: SENNOSIDES 8.6 MG TABLET PO (21:34)
[2024-11-06 03:50] VITALS: BP 103/63; PULSE 70; RESP 18; TEMP 35.9; O2SAT 96
[2024-11-06] MEDS: DOXYCYCLINE 100 MG in SODIUM CHLORIDE 0.9% 100 ML IV ×2 (06:22→18:55)
[2024-11-06] MEDS: SODIUM CHLORIDE 0.9% FLUSH 10 ML IV ×3 (06:23→21:36)
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
[2024-11-06 08:00] VITALS: BP 111/59; PULSE 91; RESP 17; TEMP 36.1; O2SAT 96
[2024-11-06] MEDS: METOPROLOL ER 50 MG TABLET PO (08:33)
[2024-11-06] MEDS: ACETAMINOPHEN 325 MG TABLET 650 MG PO ×2 (08:33→21:35)
[2024-11-06] MEDS: PANTOPRAZOLE DR 40 MG TABLET PO (08:33)
[2024-11-06] MEDS: TAMSULOSIN 0.4 MG CAPSULE PO (08:34)
[2024-11-06] MEDS: APIXABAN 5 MG TABLET PO ×2 (08:34→21:35)
[2024-11-06 17:00] VITALS: BP 115/63; PULSE 92; RESP 16; TEMP 35.9; O2SAT 98
[2024-11-06 19:00] VITALS: BP 111/57; PULSE 84; RESP 16; TEMP 36.4; O2SAT 97
[2024-11-06] MEDS: ACETAMINOPHEN 325 MG TABLET PO (21:48)
[2024-11-07 04:00] VITALS: BP 111/62; PULSE 76; RESP 16; TEMP 36.6; O2SAT 98
[2024-11-07] MEDS: ACETAMINOPHEN 325 MG TABLET 650 MG PO (05:15)
[2024-11-07] MEDS: DOXYCYCLINE 100 MG in SODIUM CHLORIDE 0.9% 100 ML IV ×2 (06:31→18:28)
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
[2024-11-07 08:00] VITALS: BP 116/68; PULSE 74; RESP 18; TEMP 35.9; O2SAT 97
[2024-11-07 08:35] VITALS: BP 116/68; PULSE 74
[2024-11-07] MEDS: TAMSULOSIN 0.4 MG CAPSULE PO (08:35)
[2024-11-07] MEDS: APIXABAN 5 MG TABLET PO ×2 (08:35→22:00)
[2024-11-07] MEDS: PANTOPRAZOLE DR 40 MG TABLET PO (08:35)
[2024-11-07] MEDS: SODIUM CHLORIDE 0.9% FLUSH 10 ML IV ×2 (08:35→22:00)
[2024-11-07] MEDS: METOPROLOL ER 50 MG TABLET PO (08:35)
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
[2024-11-07 16:00] VITALS: BP 102/67; PULSE 70; RESP 16; TEMP 36.3; O2SAT 99
[2024-11-07 20:00] VITALS: BP 112/61; PULSE 81; RESP 16; TEMP 36.6; O2SAT 99
[2024-11-07] MEDS: LOPERAMIDE 2 MG CAPSULE PO (22:01)
[2024-11-08] MEDS: DOXYCYCLINE 100 MG in SODIUM CHLORIDE 0.9% 100 ML IV (07:02)
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
[2024-11-08 09:13] VITALS: BP 104/87; PULSE 84
[2024-11-08] MEDS: TAMSULOSIN 0.4 MG CAPSULE PO (09:13)
[2024-11-08] MEDS: APIXABAN 5 MG TABLET PO ×2 (09:13→20:34)
[2024-11-08] MEDS: METOPROLOL ER 50 MG TABLET PO (09:13)
[2024-11-08] MEDS: PANTOPRAZOLE DR 40 MG TABLET PO (09:14)
[2024-11-08] MEDS: ACETAMINOPHEN 325 MG TABLET 650 MG PO (09:15)
[2024-11-08] MEDS: SODIUM CHLORIDE 0.9% FLUSH 10 ML IV ×2 (09:16→20:35)
[2024-11-08 09:29] VITALS: BP 104/87; PULSE 79; RESP 15; TEMP 35.9; O2SAT 97
[2024-11-08 17:00] VITALS: BP 119/67; PULSE 77; RESP 18; TEMP 36; O2SAT 98
[2024-11-08] MEDS: LOPERAMIDE 2 MG CAPSULE PO (17:45)
[2024-11-08 20:00] VITALS: BP 111/60; PULSE 75; RESP 18; TEMP 35.9; O2SAT 99
[2024-11-08] MEDS: DOXYCYCLINE HYCLATE 100 MG TABLET PO (20:34)
[2024-11-09 05:00] VITALS: BP 108/64; PULSE 78; RESP 16; TEMP 36.2; O2SAT 96
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
[2024-11-09 10:23] VITALS: BP 164/90; PULSE 76
[2024-11-09] MEDS: METOPROLOL ER 50 MG TABLET PO (10:23)
[2024-11-09] MEDS: DOXYCYCLINE HYCLATE 100 MG TABLET PO ×2 (10:23→21:34)
[2024-11-09] MEDS: LOPERAMIDE 2 MG CAPSULE PO (10:23)
[2024-11-09] MEDS: PANTOPRAZOLE DR 40 MG TABLET PO (10:25)
[2024-11-09] MEDS: TAMSULOSIN 0.4 MG CAPSULE PO (10:25)
[2024-11-09] MEDS: SODIUM CHLORIDE 0.9% FLUSH 10 ML IV ×2 (10:25→21:34)
[2024-11-09] MEDS: APIXABAN 5 MG TABLET PO ×2 (10:25→21:34)
[2024-11-09 13:00] VITALS: BP 125/78; PULSE 85; RESP 18; TEMP 35.8; O2SAT 100
--- NOTE | 2024-11-09 16:03 | CM.DPNOTE ---
DCP Assessment Note: Pt is a XXyo XXX, resident of XXX, is admitted for XXX. Pt lives in a house XXX. Pt's Primary Care Provider is Dr. HIGUERA and insurance is XXX. Reviewed chart and discussed with multidisciplinary team pt's medical status and initial discharge needs. DCP met w/patient at bedside; introduced self and role. Patient was found in bed, alert and oriented, cooperative with assessment. Pt confirmed living situation and good support in . Pt expressed preference in [place]. Pt has a hx of XXX. Pt agreeable to working with therapies and following their recommendations. Plan: Awaiting PT/OT evaluations and recommendation for evolving discharge plans. CM team will follow closely for coordination of discharge plans. AYESHA Perez
--- NOTE | 2024-11-09 16:04 | CM.DPNOTE ---
DCP Continued: Reviewed EMR and team rounds for pt?s medical status. Per [facility] Admissions, Pit Laborer still reviewing if pt can come to facility with SNF benefit then translate to [facility] care but will need LTC application completed and in [facility] system. Pt will need to complete LTC Medicaid application, has it at bedside and will attempt to complete. Pt friend, Mohinder, approached Care Management office and discussed pt pets being in the house alone with no food or supervision. Pt son who was supposed to care for the dog and cat is no longer in the state. DCP called non-emergency dispatch and requested dispatch for Animal Control to pt house. Plan: Placement pending, LTC application must be completed before possible acceptance. CM Team will continue to follow for coordination of discharge plans. AYESHA Perez
[2024-11-09 21:00] VITALS: BP 109/71; PULSE 70; RESP 17; TEMP 36.2; O2SAT 99
[2024-11-09] MEDS: ACETAMINOPHEN 325 MG TABLET 650 MG PO (21:34)
[2024-11-10 04:01] VITALS: BP 104/70; PULSE 87; RESP 18; O2SAT 94
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
[2024-11-10 08:00] VITALS: BP 114/73; PULSE 72; RESP 14; TEMP 35.6; O2SAT 97
[2024-11-10 09:56] VITALS: BP 112/72; PULSE 84
[2024-11-10] MEDS: TAMSULOSIN 0.4 MG CAPSULE PO (09:56)
[2024-11-10] MEDS: METOPROLOL ER 50 MG TABLET PO (09:56)
[2024-11-10] MEDS: PANTOPRAZOLE DR 40 MG TABLET PO (09:56)
[2024-11-10] MEDS: DOXYCYCLINE HYCLATE 100 MG TABLET PO ×2 (09:56→20:15)
[2024-11-10] MEDS: APIXABAN 5 MG TABLET PO ×2 (09:56→20:15)
[2024-11-10] MEDS: SODIUM CHLORIDE 0.9% FLUSH 10 ML IV ×2 (10:10→20:55)
--- NOTE | 2024-11-10 15:19 | CM.DPC ---
DCP Cont: SW met bedside with pt and he was unable to complete the [facility] LTC application on his own as his ride side weakness he cannot hold the pen and write. SW sat bedside and pt A&O x4 but with his aphasia sometimes has difficulty asking questions and providing answers clearly but was able to provide his information and SW wrote down for him and he was able to sign on the first and last page. SW explained process of [facility] reviewing to confirm they can accept for SNF rehab if his [facility] LTC application is submitted and in process and pt very appreciative for SNF rehab to get stronger and confirms he does not feel he can d/c home and wanting SNF or [facility]. Due to the holiday weekend, application to be faxed tomorrow Sun due to triage needs today. SW to also complete the [facility] Expedited form as well. NEWTON Michael
[2024-11-10 16:00] VITALS: BP 112/72; PULSE 78; RESP 16; TEMP 36.8; O2SAT 95
[2024-11-11] VITALS: BP 105/56; PULSE 86; RESP 16; TEMP 35.9; O2SAT 96
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
[2024-11-11 08:00] VITALS: BP 103/60; PULSE 76; RESP 16; TEMP 35.7; O2SAT 98
[2024-11-11 08:11] VITALS: BP 103/59; PULSE 86
[2024-11-11] MEDS: METOPROLOL ER 50 MG TABLET PO (08:11)
[2024-11-11] MEDS: APIXABAN 5 MG TABLET PO ×2 (08:11→20:25)
[2024-11-11] MEDS: DOXYCYCLINE HYCLATE 100 MG TABLET PO ×2 (08:11→20:25)
[2024-11-11] MEDS: TAMSULOSIN 0.4 MG CAPSULE PO (08:12)
[2024-11-11] MEDS: SODIUM CHLORIDE 0.9% FLUSH 10 ML IV ×2 (08:12→20:26)
[2024-11-11] MEDS: PANTOPRAZOLE DR 40 MG TABLET PO (08:12)
--- NOTE | 2024-11-11 08:24 | CM.DPC ---
DCP LTC planning Cont: AGUSTIN faxed completed Medicaid LTC application and the [facility] Expedited Intake and Referral form. Will follow up with [facility] Tuesday as today is Tuesday and Tuesday is a hol. [facility] continues to follow to confirm if they can accept the patient at d/c for SNF rehab with likely transition to LTC either at [facility] or maybe [facility]. NEWTON Michael
[2024-11-11 16:00] VITALS: BP 112/66; PULSE 75; RESP 16; TEMP 36.2; O2SAT 95
[2024-11-11 19:30] VITALS: BP 104/69; PULSE 91; RESP 18; TEMP 34.1; O2SAT 96
--- NOTE | 2024-11-11 23:22 | PC.NURSE ---
Pt refusing to turn. This nurse and the PCT explained to the patient the importance of turning and that we would turn him every 2 hours. Pt c/o about being turn and wanted his waffle cushion taken off. Pt is unable to help with turning and requires maximum assist with more than 2 people. Pt bottom is excoriated, mepilex dressing removed per pt request, unable to apply a new one due to increase moisture. will continue to monitor and reposition every 2 hours tonight.
[2024-11-12 03:00] VITALS: BP 97/59; PULSE 76; RESP 20; TEMP 36; O2SAT 94
[2024-11-12 08:38] VITALS: BP 122/67
[2024-11-12] MEDS: ACETAMINOPHEN 325 MG TABLET 650 MG PO ×2 (08:38→23:27)
[2024-11-12] MEDS: SODIUM CHLORIDE 0.9% FLUSH 10 ML IV ×2 (08:38→20:24)
[2024-11-12] MEDS: PANTOPRAZOLE DR 40 MG TABLET PO (08:38)
[2024-11-12] MEDS: METOPROLOL ER 50 MG TABLET PO (08:38)
[2024-11-12] MEDS: TAMSULOSIN 0.4 MG CAPSULE PO (08:39)
[2024-11-12] MEDS: APIXABAN 5 MG TABLET PO ×2 (08:39→20:24)
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
[2024-11-12 11:00] VITALS: BP 106/67; PULSE 88; RESP 16; TEMP 35.8; O2SAT 98
[2024-11-12] MEDS: SENNOSIDES 8.6 MG TABLET PO ×2 (14:20→20:31)
[2024-11-12 19:00] VITALS: BP 103/63; PULSE 84; RESP 18; TEMP 35.9; O2SAT 97
[2024-11-13 03:00] VITALS: BP 99/53; PULSE 61; RESP 18; TEMP 36.1; O2SAT 96
[2024-11-13] MEDS: ACETAMINOPHEN 325 MG TABLET 650 MG PO (04:46)
[2024-11-13] MEDS: APIXABAN 5 MG TABLET PO ×2 (08:02→21:57)
[2024-11-13] MEDS: TAMSULOSIN 0.4 MG CAPSULE PO (08:02)
[2024-11-13] MEDS: METOPROLOL ER 50 MG TABLET PO (08:02)
[2024-11-13] MEDS: PANTOPRAZOLE DR 40 MG TABLET PO (08:02)
[2024-11-13] MEDS: SODIUM CHLORIDE 0.9% FLUSH 10 ML IV ×2 (10:00→21:59)
[2024-11-13 11:00] VITALS: BP 109/65; PULSE 78; RESP 16; TEMP 35.9; O2SAT 96
[2024-11-13] MEDS: LACTULOSE 20 GM/30 ML SOLUTION PO ×3 (11:52→21:58)
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
[2024-11-13] MEDS: BISACODYL 10 MG SUPP PR (15:30)
--- NOTE | 2024-11-13 15:34 | CM.DPNOTE ---
DCP Note CHAIN SAW DRIVER reviewed EMR per Sunil from [facility], did not receive [facility] giselle. CHAIN SAW DRIVER forwarded application and expedited form again. CHAIN SAW DRIVER emailed [facility] Huong, no response. Out of office message, back in office Tuesday. lvm with alternative contact at [facility] Mary Alice Wright, no response. per Anita at , director not in office to review until Tuesday. Consider alternative SNF referrals if SNF continues to delay acceptance vs denial. CHAIN SAW DRIVER attempted to meet with pt x3, either sleeping, getting urgent care physician assistant, or getting CAN LABELER hygiene care. P: [facility] vs alternative SNF continues to follow to confirm if they can accept the patient at d/c for SNF rehab with likely transition to LTC either at [facility] or maybe [facility]. NEWTON Gomez
[2024-11-13 20:00] VITALS: BP 100/62; PULSE 87; RESP 17; TEMP 36.6; O2SAT 97
[2024-11-13] MEDS: MELATONIN 3 MG TABLET PO (21:57)
[2024-11-14 04:00] VITALS: BP 104/60; PULSE 80; RESP 17; TEMP 35.9; O2SAT 96
[2024-11-14] MEDS: PANTOPRAZOLE DR 40 MG TABLET PO (08:54)
[2024-11-14] MEDS: TAMSULOSIN 0.4 MG CAPSULE PO (08:54)
[2024-11-14] MEDS: METOPROLOL ER 50 MG TABLET PO (08:54)
[2024-11-14] MEDS: APIXABAN 5 MG TABLET PO ×2 (08:55→20:45)
[2024-11-14] MEDS: SODIUM CHLORIDE 0.9% FLUSH 10 ML IV (08:57)
[2024-11-14 12:00] VITALS: BP 119/70; PULSE 83; RESP 18; TEMP 35.6; O2SAT 98
--- NOTE | 2024-11-14 12:12 | CM.DPC ---
DCP LTC planning/SNF Cont: Per MD, pt remains stable for d/c once placement/SNF secured. AGUSTIN attempted to contact [facility] to confirm pt LTC and Expedited referral received and emailed Huong Rodriguez ([email or web address]) and Calros Aguayo ([email or web address]) and also called [facility] office and left ms for Huong. Return email from Carlos stating the following: Anna Vargas received an Intake & Referral for client Yared Houston on 11/13/24. At that time, no application was received. The LTC application has been received, it has been assigned to a PBS worker as the financial is currently pending. floor service worker spring is able to assign the case to an ACH Worker since the LTC application was received.? He will get the IRF assigned today. Thank you, Carlos VELEZ to follow for assigned worker to complete the Functional Assessment. AGUSTIN called [facility] and she states they just received high acquity patients from their sister facility [place] recently and therefore their DNS declined accepting pt due to being 2PA OOB. AGUSTIN made additional referrals to [facility], [facility], and [facility] to determine if they can accept pt's A[employer] under [employer] insurance and pt with LTC application in process. NEWTON Michael
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
[2024-11-14 20:00] VITALS: BP 105/50; PULSE 96; RESP 18; TEMP 36.1; O2SAT 96
[2024-11-15] MEDS: MELATONIN 3 MG TABLET PO ×2 (00:17→21:49)
--- NOTE | 2024-11-15 02:00 | PC.NURSE ---
Patient is alert and oriented but with chronic expressive aphasia. Breath sounds CTA with RA sat of 96%. HRR. Denied nausea. Had several loose stools on previous shift so lactulose held tonight. Buttocks/sacral area reddened excoriation with peeling skin. Indwelling catheter is in place for aiding wound healing. BT present and abdomen is soft. Is assisted to reposition q2h although prefers to lie on his right side. Wearing bilateral calf SCD's and has inflatable protectors on both LE as has pressure ulcers to bilateral heels; dressing to left heel is CDI. Denied pain tonight Fall risk score is high and bed alarm is activated.
[2024-11-15 04:00] VITALS: BP 107/63; PULSE 85; RESP 18; TEMP 35.9; O2SAT 93
[2024-11-15 09:26] VITALS: BP 153/84; PULSE 86
[2024-11-15] MEDS: METOPROLOL ER 50 MG TABLET PO (09:26)
[2024-11-15] MEDS: TAMSULOSIN 0.4 MG CAPSULE PO (09:26)
[2024-11-15] MEDS: APIXABAN 5 MG TABLET PO ×2 (09:28→21:49)
[2024-11-15] MEDS: PANTOPRAZOLE DR 40 MG TABLET PO (09:28)
[2024-11-15 09:56] VITALS: BP 107/60; PULSE 88; RESP 15; TEMP 36.1; O2SAT 97
[2024-11-15 11:14] LABS: Add Manual Diff / Slide Review NO; Hematocrit 41.5 % (41-53); Hemoglobin 14.0 g/dL (13.5-17.5); Lymphocytes Absolute Auto 900 /uL (1100-4500); Mean Corpuscular HGB Conc 33.8 % (30-36); Mean Corpuscular Hemoglobin 30.0 PG (26-34); Mean Corpuscular Volume 88.8 fL (80-100); Platelet Count 179 X10^3/uL (150-400)
[2024-11-15 11:15] VITALS: BP 107/60
[2024-11-15 11:31] LABS: Alanine Aminotransferase 12 IU/L (<50); Albumin 3.2 g/dL (3.5-5.0); Albumin Globulin Ratio 1.3 (1.0-2.8); Alkaline Phosphatase 76 U/L (38-126); Blood Urea Nitrogen 28 mg/dL (9-20); Calcium 9.2 mg/dL (8.4-10.2); Carbon Dioxide 24 mmol/L (22-32); Chloride 103 mmol/L (98-107); Estimated Glomerular Filt Rate > 60 mL/min (>60); Globulin 2.5 g/dL (1.7-4.1); Glucose 122 mg/dL (70-99); HEMOLYSIS < 15 (0-50); Potassium 4.4 mmol/L (3.4-5.1); Sodium 135 mmol/L (137-145); Total Protein 5.7 g/dL (6.3-8.2)
--- NOTE | 2024-11-15 14:00 | CM.DPNOTE ---
DCP Cont In touch with - Daphne Charles, Social Sonar Watchstander III, P [phone] / [email or web address] [facility] Daphne has been assigned to complete the functional or medical portion of patient's CARES assessment- used to qualify a patient for continuous churn buttermaker care Medicaid. Emailed Daphne the requested clinical and spoke with her at bedside. A financial worker will be reaching out to patient soon to complete the financial portion and to request financial documents. Provided this STRUCTURAL STEEL DETAILER's desk number and strongly encouraged contact between financial worker and this SW team- patient is [place] and has chronic expressive aphasia. Received call from bailey Alfonso at [facility], who has accepted patient and will attempt insurance authorization. [facility] has continuous churn buttermaker care male beds and so would transition patient to LTC once [facility] is secured. Received call from Barbie Noriega [facility] Associate Professor Of Art. Freedom reports patient's son is currently jailed in [employer] Officer Sally P [phone], [employer] parcel post officer, has been managing the neglected animals of patient's home. SW team following closely for coordination of placement efforts. LESTER
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
[2024-11-15 18:40] VITALS: BP 105/70; PULSE 92; RESP 16; TEMP 36; O2SAT 97
[2024-11-15 19:54] VITALS: BP 103/67; PULSE 108; RESP 18; TEMP 36.1; O2SAT 97
[2024-11-15] MEDS: SENNOSIDES 8.6 MG TABLET PO (21:49)
[2024-11-16 09:34] VITALS: BP 133/78; PULSE 95
[2024-11-16] MEDS: PANTOPRAZOLE DR 40 MG TABLET PO (09:34)
[2024-11-16] MEDS: APIXABAN 5 MG TABLET PO ×2 (09:34→21:03)
[2024-11-16] MEDS: METOPROLOL ER 50 MG TABLET PO (09:34)
[2024-11-16] MEDS: TAMSULOSIN 0.4 MG CAPSULE PO (09:34)
[2024-11-16 10:00] VITALS: PULSE 99; RESP 20; TEMP 35.8; O2SAT 96
[2024-11-16 12:20] VITALS: BP 124/68; PULSE 80
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
[2024-11-16 16:42] VITALS: BP 102/61; PULSE 68; RESP 14; TEMP 35.9; O2SAT 97
[2024-11-16 19:00] VITALS: BP 95/58; PULSE 85; RESP 16; TEMP 36.1; O2SAT 97
[2024-11-16] MEDS: LACTULOSE 20 GM/30 ML SOLUTION PO (21:03)
[2024-11-16] MEDS: MELATONIN 3 MG TABLET PO (21:03)
[2024-11-17 05:00] VITALS: BP 115/76; PULSE 93; RESP 16; TEMP 36.6; O2SAT 99
[2024-11-17 07:56] VITALS: BP 98/55; PULSE 95; RESP 20; TEMP 35.8; O2SAT 95
[2024-11-17 09:47] VITALS: BP 132/68; PULSE 71
[2024-11-17] MEDS: TAMSULOSIN 0.4 MG CAPSULE PO (09:47)
[2024-11-17] MEDS: PANTOPRAZOLE DR 40 MG TABLET PO (09:47)
[2024-11-17] MEDS: METOPROLOL ER 50 MG TABLET PO (09:47)
[2024-11-17] MEDS: APIXABAN 5 MG TABLET PO ×2 (09:47→21:38)
[2024-11-17] MEDS: ACETAMINOPHEN 325 MG TABLET 650 MG PO ×2 (09:49→23:46)
[2024-11-17] MEDS: LACTULOSE 20 GM/30 ML SOLUTION PO ×2 (09:49→21:38)
[2024-11-17 10:31] VITALS: BP 121/66; PULSE 73
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
[2024-11-17 11:44] VITALS: BP 97/64; PULSE 80; RESP 18; TEMP 35.7; O2SAT 97
[2024-11-17 19:00] VITALS: BP 105/70; PULSE 63; RESP 17; TEMP 35.9; O2SAT 98
[2024-11-17] MEDS: MELATONIN 3 MG TABLET PO (23:46)
[2024-11-18 08:35] VITALS: BP 108/60; PULSE 86
[2024-11-18] MEDS: APIXABAN 5 MG TABLET PO ×2 (08:35→21:24)
[2024-11-18] MEDS: PANTOPRAZOLE DR 40 MG TABLET PO (08:35)
[2024-11-18] MEDS: METOPROLOL ER 50 MG TABLET PO (08:35)
[2024-11-18] MEDS: TAMSULOSIN 0.4 MG CAPSULE PO (08:35)
[2024-11-18 08:58] VITALS: BP 108/60; PULSE 82; RESP 17; TEMP 36.4; O2SAT 95
[2024-11-18 09:05] VITALS: PULSE 88
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
[2024-11-18] MEDS: FUROSEMIDE 40 MG TABLET PO ×2 (11:53→18:31)
[2024-11-18] MEDS: LACTULOSE 20 GM/30 ML SOLUTION PO (14:53)
[2024-11-18] MEDS: ACETAMINOPHEN 325 MG TABLET 650 MG PO (16:19)
[2024-11-18] MEDS: MAGNESIUM HYDROXIDE 30 ML UDC PO (16:19)
[2024-11-18 18:01] VITALS: BP 100/73; PULSE 82; RESP 16; TEMP 35.8; O2SAT 99
[2024-11-18 19:00] VITALS: BP 110/69; PULSE 74; RESP 16; TEMP 36.4; O2SAT 96
[2024-11-18] MEDS: MELATONIN 3 MG TABLET PO (21:24)
--- NOTE | 2024-11-18 22:55 | PC.NURSE ---
Addendum entered by Angelita Albarado RN 11/19/24 07:24: 0700 Report given to raudel DEL RIO. Plan of care discussed. Original Note: 1929 Report received from raudel DEL RIO. Patient AAO x's 4, expressive aphasia noted. Denies pain. Decreased sensation noted to L side. Heel protectors maintained. Patient denies numbness and tingling at this time. Able to RICK, weakness noted. Call light within reach and bed in lowest position. 2119 Patient with BM at this time. Patient changed and cleansed.
[2024-11-19] MEDS: FUROSEMIDE 40 MG TABLET PO (04:07)
[2024-11-19 05:00] VITALS: BP 97/62; PULSE 78; RESP 17; TEMP 36.6; O2SAT 95
[2024-11-19 05:32] LABS: Add Manual Diff / Slide Review NO; Hematocrit 39.8 % (41-53); Hemoglobin 13.6 g/dL (13.5-17.5); Lymphocytes Absolute Auto 1300 /uL (1100-4500); Mean Corpuscular HGB Conc 34.1 % (30-36); Mean Corpuscular Hemoglobin 30.2 PG (26-34); Mean Corpuscular Volume 88.6 fL (80-100); Platelet Count 188 X10^3/uL (150-400)
[2024-11-19 05:42] LABS: Blood Urea Nitrogen 28 mg/dL (9-20); Calcium 9.1 mg/dL (8.4-10.2); Carbon Dioxide 29 mmol/L (22-32); Chloride 100 mmol/L (98-107); Estimated Glomerular Filt Rate > 60 mL/min (>60); Glucose 98 mg/dL (70-99); HEMOLYSIS < 15 (0-50); Potassium 4.3 mmol/L (3.4-5.1); Sodium 134 mmol/L (137-145)
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
[2024-11-19 08:26] VITALS: BP 114/63; PULSE 74
[2024-11-19] MEDS: PANTOPRAZOLE DR 40 MG TABLET PO (08:26)
[2024-11-19] MEDS: APIXABAN 5 MG TABLET PO ×2 (08:26→20:42)
[2024-11-19] MEDS: METOPROLOL ER 50 MG TABLET PO (08:26)
[2024-11-19] MEDS: TAMSULOSIN 0.4 MG CAPSULE PO (08:26)
[2024-11-19] MEDS: LACTULOSE 20 GM/30 ML SOLUTION PO (08:27)
[2024-11-19 11:44] VITALS: TEMP 35.8
--- NOTE | 2024-11-19 12:05 | PC.NURSE ---
Skin note: large area of excoriation over groin and buttocks. Zinc barrier cream, mepilex applied, turns q2hr. Unstageable pressure injuries noted to R and L heels, see pictures. R > L. Heels floated with offloading devices. Area of blanchable erythema noted on L elbow, mepilex applied and elbow floated
--- NOTE | 2024-11-19 12:34 | CM.DPNOTE ---
DCP Cont Spoke with Daphne Charles, Social Commercial Management Accountant III, P [phone] re patient's LTC assessment. The assigned financial worker is beginning review and will be reaching out with some questions today. Daphne has sent a message to this person explaining patient has severe aphasia and will need someone to help him get the financial information communicated to the financial worker. Daphne has relayed number(s) for this SW team to the assigned financial worker (nm?) Naty at [facility] states no insurance auth yet. Emailed latest MD prog note to Naty as well as a narrative from bedside RN with wound care instructions. Spoke with patient to update on above. Patient has difficulty with verbal communication. With time, patient can typically show a picture, point, or say what he is referencing. Patient is concerned that he will not make his pacemaker exchange appt at [facility] scheduled for November 28. Explained to patient that if he remains at this appt will need to be rescheduled. If he has discharged to [facility], their staff can get him back and forth. Patient emailed this STATION INSTALLER his boarding pass from [facility] to prepare for his procedure November 28. I have now forwarded this email to Naty at [facility] as an FYI and to explain that patient is anxiously awaiting this procedure and does not want to reschedule. SW team following closely for coordination. Plan: Anticipate discharge to [facility]; either with an auth secured from patient's AARP [facility] vs LTC Medicaid once secured. LESTER
[2024-11-19 15:40] VITALS: BP 99/56; PULSE 84; RESP 16; TEMP 36.1; O2SAT 98
[2024-11-19 19:00] VITALS: BP 98/61; PULSE 74; RESP 18; TEMP 36.2; O2SAT 96
[2024-11-19] MEDS: MELATONIN 3 MG TABLET PO (20:42)
[2024-11-20 03:00] VITALS: BP 100/62; PULSE 71; RESP 18; TEMP 36.1; O2SAT 96
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
[2024-11-20 08:10] VITALS: BP 116/74; PULSE 84; RESP 17; TEMP 36; O2SAT 95
[2024-11-20 09:33] VITALS: BP 116/84; PULSE 87
[2024-11-20] MEDS: TAMSULOSIN 0.4 MG CAPSULE PO (09:33)
[2024-11-20] MEDS: PANTOPRAZOLE DR 40 MG TABLET PO (09:33)
[2024-11-20] MEDS: METOPROLOL ER 50 MG TABLET PO (09:33)
[2024-11-20] MEDS: APIXABAN 5 MG TABLET PO ×2 (09:33→20:13)
[2024-11-20 12:52] VITALS: BP 116/87
--- NOTE | 2024-11-20 13:08 | OT.IPNOTE ---
VIKAS bird received and spoke to nursing aid and pt is still able to do his limited ADL needs of eating and grooming needs with encouragement and cues to initiate, otherwise dependent for all other needs for ADL's and use of marnie for transfers. Pt is more appropriate for long tern care. Discharge OT marge orders and able to talk to CM.
--- NOTE | 2024-11-20 15:39 | CM.DPNOTE ---
Addendum entered by NEWTON Gomez 11/20/24 16:06: Add to previous note Met with pt in room. reviewed appt with Vonda Santana tomorrow. gave phone number. will call him tomorrow for financial interview. per pt, has someone that is interested in buying his house? unsure if that plan will go through or not. THRILL PERFORMER answered questions to best of ability SL Original Note: DCP note THRILL PERFORMER Reviewed EMR per Naty at [facility], pt [employer] MCR auth for SNF will likely be denied hopeful for PT/OT notes. added new order. per PT./OT, pt at baseline for mobility continues to rec LTC. did not eval. received vm from [facility] Financial worker Vonda Santana (p [phone]) requested financial interview with pt. set up for tomorrow 9am. pt can call that number from his cell phone in the room. per Naty, will continue to attempt for auth. per pia at end of day, pt reports his neighbor has a contact that would be willing to buy his house? P: if auth dc to [facility] for SNF for short term before medicaid LTC can kick in. if not will need to continue to expedite LTC Medicaid giselle/spend down program NEWTON Gomez
--- NOTE | 2024-11-20 15:56 | PT-IP ANOTE ---
PT eval order received and EMR reviewed. Pt was a marnie lift transfers and total A with mobilities at home prior to admission. pt continues to require a marnie lift for transfers. Talked with nursing staff and pt confirmed level of assistance and pt also not motivated to mobilize in bed. pt is at baseline with mobility and no PT interventions indicated. talked with case operator and informed that PT eval order will be discharged.
[2024-11-20 20:00] VITALS: BP 110/63; PULSE 80; RESP 15; TEMP 36.4; O2SAT 95
[2024-11-20] MEDS: LACTULOSE 20 GM/30 ML SOLUTION PO (20:13)
[2024-11-20] MEDS: ACETAMINOPHEN 325 MG TABLET 650 MG PO (21:01)
[2024-11-20] MEDS: MELATONIN 3 MG TABLET PO (23:30)
[2024-11-21 04:00] VITALS: BP 113/78; PULSE 75; RESP 16; TEMP 36.6; O2SAT 97
[2024-11-21 06:52] LABS: Hematocrit 42.4 % (41-53); Hemoglobin 14.4 g/dL (13.5-17.5); Mean Corpuscular HGB Conc 34.0 % (30-36); Mean Corpuscular Hemoglobin 30.2 PG (26-34); Mean Corpuscular Volume 88.8 fL (80-100); Platelet Count 198 X10^3/uL (150-400)
[2024-11-21 07:08] LABS: Blood Urea Nitrogen 33 mg/dL (9-20); Calcium 9.2 mg/dL (8.4-10.2); Carbon Dioxide 28 mmol/L (22-32); Chloride 99 mmol/L (98-107); Estimated Glomerular Filt Rate > 60 mL/min (>60); Glucose 104 mg/dL (70-99); HEMOLYSIS < 15 (0-50); Potassium 4.3 mmol/L (3.4-5.1); Sodium 134 mmol/L (137-145)
[2024-11-21 07:49] VITALS: BP 112/66; PULSE 74; RESP 18; TEMP 35.6; O2SAT 97
[2024-11-21 09:47] VITALS: BP 112/66; PULSE 77
[2024-11-21] MEDS: METOPROLOL ER 50 MG TABLET PO (09:47)
[2024-11-21] MEDS: TAMSULOSIN 0.4 MG CAPSULE PO (09:47)
[2024-11-21] MEDS: PANTOPRAZOLE DR 40 MG TABLET PO (09:47)
[2024-11-21] MEDS: APIXABAN 5 MG TABLET PO (09:47)
[2024-11-21] MEDS: ACETAMINOPHEN 325 MG TABLET 650 MG PO (09:54)
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
--- NOTE | 2024-11-21 14:23 | CM.DPNOTE ---
DC Note According to Naty at [facility], patient has been authorized and they can admit today 11/21. [employer] van arranged for turkey picker at 2pm. Plan discussed with patient and he remains agreeable. Call placed to financial worker, [facility], Vonda Santana (p [phone]) updated him with discharge plan. Provided the number for Naty at [facility] and provided patient's email address [email or web address] - Vonda still needs to connect with patient to complete the financial interview portion of the MONE giselle. Strongly encouraged Vonda to get patient the assistance he needs to participate in the interview- as patient's severe aphasia is a limiting factor over the phone. Call placed to [facility] catalytic case operator Daphne Charles; left msg with update. Emailed SNF orders- DC report, DC Summary, signed med list and PASRR to Naty at [facility]. IMM reviewed and provided to patient. Bedside RN calling nurse to nurse report. Plan:Discharge to [facility] via [employer] van with [facility] advantage auth in place, transition to [facility]ONE once approved. LESTER
--- NOTE | 2024-11-21 17:26 | PC.NURSE ---
1400- Patient hoyered to private w/c- Iv removed. All belongings packed up. Attempted to call report to [facility]- left message and no return call.
== END 2024-11-21 14:15 | DRG 602 ==
LOC: ED 18:39 → AC 22:56
PROVIDERS: Emergency Medicine; Hospitalist; Internal Medicine; Admitting Provider Internal Medicine; Emergency Provider Family Medicine; PCP Family Medicine; Visit Provider Internal Medicine
DX: L03.115 Cellulitis of right lower limb (principal); E43 Unspecified severe protein-calorie malnutrition; N39.0 Urinary tract infection, site not specified; T76.01XA Adult neglect or abandonment, suspected, initial encounter; Z68.33 Body mass index [BMI] 33.0-33.9, adult; I69.320 Aphasia following cerebral infarction; J44.9 Chronic obstructive pulmonary disease, unspecified; I48.91 Unspecified atrial fibrillation; R53.1 Weakness; K59.00 Constipation, unspecified; R62.7 Adult failure to thrive; L89.329 Pressure ulcer of left buttock, unspecified stage; L89.319 Pressure ulcer of right buttock, unspecified stage; L89.629 Pressure ulcer of left heel, unspecified stage; L89.619 Pressure ulcer of right heel, unspecified stage; B96.5 Pseudomonas (aeruginosa) (mallei) (pseudomallei) as the cause of diseases classified elsewhere; R60.0 Localized edema; K21.9 Gastro-esophageal reflux disease without esophagitis; I35.0 Nonrheumatic aortic (valve) stenosis; N40.0 Benign prostatic hyperplasia without lower urinary tract symptoms; I12.9 Hypertensive chronic kidney disease with stage 1 through stage 4 chronic kidney disease, or unspecified chronic kidney disease; N18.31 Chronic kidney disease, stage 3a; X58.XXXA Exposure to other specified factors, initial encounter; Z79.01 Long term (current) use of anticoagulants; Z95.0 Presence of cardiac pacemaker; Z98.84 Bariatric surgery status
CPT/HCPCS: 36415; 71045; 72192; 73700; 80048; 80053; 81001; 83605; 83735; 84145; 85025; 85027; 85610; 85730; 87040; 87077; 87086; 87186; 87633; 93005; 93010; 96361; 96365; 99284; J0696; J1956